=== PATIENT | female | born 2000 | race Caucasian/White ===

== ENCOUNTER 2018-02-10 21:30 | Emergency (ER) | payer OTHER, MEDICAID, SELFPAY ==
[2018-02-10 21:31] VITALS: BP 105/73; PULSE 94; RESP 14; TEMP 37; O2SAT 96; BMI 23.3
--- NOTE | 2018-02-10 22:57 | EKG12_ITS ---
Test Reason : CP Blood Pressure : / mmHG Vent. Rate : 083 BPM Atrial Rate : 083 BPM P-R Int : 136 ms QRS Dur : 084 ms QT Int : 346 ms P-R-T Axes : 062 049 040 degrees QTc Int : 406 ms Normal sinus rhythm with sinus arrhythmia Normal ECG Confirmed by MATTY ROCA, SOHA ([id number]), associate entertainment editor SACHI HANDY ([id number]) on 02/13/2018 1:45:49 PM Referred By: ROSENDO Confirmed By:SOHA STARR MD
--- NOTE | 2018-02-10 23:02 | NURSING ---
NO OLD EKG'S IN MUSE
[2018-02-10 23:12] LABS: Absolute Lymphocyte Count 2.91 X10^3/ul (0.83-4.51); Absolute Neutrophil Count 10.2 X10^3/uL (2.0-7.7); Basophil# 0.03 X10^3/uL; Basophil% 0.2 % (0-1); Eosinophils% 2.7 % (0-5); Hematocrit 35.9 % (37-47); Hemoglobin 12.2 g/dl (12.0-15.0); Lymphocyte # 2.91 X10^3/ul (4.0); Lymphocyte % 19.7 % (19-41); Mean Corpuscular Hgb 31.4 pg (27.0-32.0); Mean Corpuscular Volume 92.5 fL (81-99); Mean Platelet Vol. 9.8 fl (6.2-12.0); Monocyte% 8.1 % (0-10); Neutrophil # 10.16 X10^3/uL (2.7-7.7); POSITIVE COUNT NO; POSITIVE DIFFERENTIAL NO; POSITIVE MORPHOLOGY NO; Platelet Count 285 K/mm3 (150-450); RBC Distribution Width CV 13.3 % (11.6-14.6); RBC Distribution Width SD 44.8 fl (35.1-43.9); Red Blood Count 3.88 M/mm3 (4.2-5.4); White Blood Count 14.7 K/mm3 (4.4-11.0)
[2018-02-10 23:31] LABS: Anion Gap 8 (5-15); BUN 5 mg/dL (7-18); BUN/Creat Ratio 8.4 RATIO (10-20); Calcium,Total 8.6 mg/dL (8.5-10.1); Chloride 108 mmol/L (98-107); Creatinine, Serum 0.59 mg/dL (0.55-1.02); EST Glomerular Filtration Rate 137 mL/min (>60); Est Glom Filt Rate - Afr Amer 166 mL/min (>60); Estimated Creatinine Clearance 149.14 ml/min; Glucose 83 mg/dL (74-106); Potassium 3.9 mmol/L (3.5-5.1); Sodium Level 140 mmol/L (136-145); Thyroid Stim Hormone (TSH) 2.14 uIU/mL (0.358-3.74)
[2018-02-10 23:50] VITALS: BP 107/66; PULSE 78; RESP 12; O2SAT 99
[2018-02-11 00:42] LABS: Mucous, Urine 0 SEEN /hpf (<or=2+); Red Blood Cells-Urine 0 SEEN /hpf (0-5)
[2018-02-11 00:44] LABS: Color, Urine Yellow (Yellow); Glucose, Dipstick 100 mg/dl (Normal); Ketone-Dipstick Negative (Negative); Leukocyte Esterase-Dipstick 500 /ul (Negative); Nitrite-Dipstick Negative (Negative); Occult Blood-Urine Negative /ul (Negative); Protein-Dipstick Negative (Negative); Specific Gravity, Urine 1.015 (1.002-1.030); Urine Bilirubin Dipstick Negative (Negative); Urine Clarity Sl. Cloudy (Clear); Urine Urobilinogen Normal (Normal)
[2018-02-11 00:49] LABS: Bacteria RARE /hpf (None Seen); Squamous Epithelial Cells - UA 5-10 SEEN /hpf (5-10); White Blood Cells 0-5 SEEN /hpf (0-5)
--- NOTE | 2018-02-11 01:39 | ED.VISSUMM ---
- ER Visit Summary Date of Service: 02/11/18 Chief Complaint: [Chest pain] History of Present Illness: The patient is a 17 F [who presents the emergency department with chest pain and shortness of breath. She describes a pleuritic pain in the left chest associated with shortness of breath and mild dizziness that has been off and on all day today the longest it lasted was an hour and a half. She had a temp of 101 earlier tonight. No cough no sneezing no sore throat no ear pain no abdominal pain no vaginal bleeding no dysuria she has some mild urinary frequency. She is 19 weeks . This is her first .] Physical Examination: [] Afebrile vital signs within acceptable limits Female in no acute distress WN WD NAD PERRL EOMI MMM NECK supple and nontender, no masses RRR no murmur rub or gallop, no peripheral edema, symmetric radial pulses CTAB no respiratory distress ABDOMEN is soft and nontender, normal bowel sounds, gravid, no rebound or guarding SKIN is warm and dry no rashes Alert and Oriented x3, CN II-XII in tact, no motor or sensory deficits, gait normal No lymphadenopathy Test Results: [] Emergency Department Course and Treatment: [ heart tones 150. Screening blood work shows a leukocytosis of 14.4. Influenza squat swab is unremarkable. Patient is she has pleuritic pain with shortness of breath. She had fever. There is no other explanation for her symptoms. I spoke with her OB in the patient about CTA. CTA was of obtained for pulmonary embolism there was no evidence of pulmonary embolism or infection. Patient was given precautions for which to return. She will drink plenty of fluids eat healthy and follow-up with her CURING PICKLING PACKER.] Treatment Plan: [] Disposition: [Is charge] Impression: [chest pain] This note was generated with [employer] dictation software. It may contain incorrect words, spelling, and punctuation that were not noted in review of the chart prior to signing ED Disposition - Plan for ED Patient: Chief Complaint: Chest Pain Referrals: Pérez Mercedes [Primary Care Provider] -
--- NOTE | 2018-02-11 01:43 | ED.DCSUM_ITS ---
- ER Visit Summary Date of Service: 02/11/18 Chief Complaint: [Chest pain] History of Present Illness: The patient is a 17 F [who presents the emergency department with chest pain and shortness of breath. She describes a pleuritic pain in the left chest associated with shortness of breath and mild dizziness that has been off and on all day today the longest it lasted was an hour and a half. She had a temp of 101 earlier tonight. No cough no sneezing no sore throat no ear pain no abdominal pain no vaginal bleeding no dysuria she has some mild urinary frequency. She is 19 weeks . This is her first .] Physical Examination: [] Afebrile vital signs within acceptable limits Female in no acute distress WN WD NAD PERRL EOMI MMM NECK supple and nontender, no masses RRR no murmur rub or gallop, no peripheral edema, symmetric radial pulses CTAB no respiratory distress ABDOMEN is soft and nontender, normal bowel sounds, gravid, no rebound or guarding SKIN is warm and dry no rashes Alert and Oriented x3, CN II-XII in tact, no motor or sensory deficits, gait normal No lymphadenopathy Test Results: [] Emergency Department Course and Treatment: [ heart tones 150. Screening blood work shows a leukocytosis of 14.4. Influenza squat swab is unremarkable. Patient is she has pleuritic pain with shortness of breath. She had fever. There is no other explanation for her symptoms. I spoke with her OB in the patient about CTA. CTA was of obtained for pulmonary embolism there was no evidence of pulmonary embolism or infection. Patient was given precautions for which to return. She will drink plenty of fluids eat healthy and follow-up with her ELECTRICAL ENGINEERING DRAFTING OFFICER.] Treatment Plan: [] Disposition: [Is charge] Impression: [chest pain] This note was generated with [employer] dictation software. It may contain incorrect words, spelling, and punctuation that were not noted in review of the chart prior to signing ED Disposition - Plan for ED Patient: Chief Complaint: Chest Pain Referrals: Pérez Mercedes [Primary Care Provider] -
--- NOTE | 2018-02-11 01:43 | ED.DEP ---
ED Disposition - Plan for ED Patient: Chief Complaint: Chest Pain Instructions: ED Chest Pain Atypical Unkn Cause Referrals: Pérez Mercedes [Primary Care Provider] - 3-5 Days
--- NOTE | 2018-02-11 04:04 | ED.RN ---
REFER TO DOWNTIME CHARTING FOR DISPOSITION INFORMATION.
--- NOTE | 2018-02-11 23:29 | CT_ITS ---
STUDY: CTA CHEST REASON FOR EXAM: Female, 17 years old. SOB and chest pain, leukocytosis, 19 weeks RADIATION DOSAGE (If Supplied By Facility): CTDIvol = ( 4.67 ) mGy, DLP = ( 187.91 ) mGycm TECHNIQUE: The examination was performed with the intravenous administration of 75ML ml of Isovue 370 contrast material. Post-processing of the angiographic images was performed, with multiplanar reformation and 3D reconstruction. Individualized dose optimization techniques were used for this CT. COMPARISON: None. FINDINGS: Normal enhancement of the main pulmonary artery and right and left pulmonary arteries. Normal enhancement of the bilateral peripheral pulmonary arteries. There is no demonstrated pulmonary embolism. Normal thoracic aorta and visualized great vessels. There is no demonstrated aortic dissection. Normal heart and pericardium. Normal mediastinum. Normal hilar regions. Normal visualized trachea and bronchi. The lungs are well expanded. Normal pulmonary parenchyma. Normal pleura. Normal chest wall structures. Normal osseous structures. Normal visualized upper abdomen. CT/CTA Chest W/WO Contrast IMPRESSION: Normal CTA chest examination, without a demonstrated pulmonary embolism or arterial dissection. Electronically Signed: Devang Thornton MD at 1:11 EDT Tel , Service support ,
== END 2018-02-11 02:00 | disposition home or self-care (01) ==
LOC: ED 22:49 → MS3 23:03 → ED 23:03
PROVIDERS: Emergency Provider Emergency Medicine; Family Provider Family Medicine; PCP Family Medicine
DX: O99.89 Other specified diseases and conditions complicating pregnancy, childbirth and the puerperium (principal); R07.89 Other chest pain; Z3A.19 19 weeks gestation of pregnancy
CPT/HCPCS: 71275; 80048; 81001; 84443; 84484; 85025; 87086; 87088; 87804; 93005; 99283; Q9967; A4216

== ENCOUNTER 2018-12-07 18:51 | Emergency (ER) | payer OTHER, MEDICAID, SELFPAY ==
[2018-12-07 18:52] VITALS: BP 118/70; PULSE 114; RESP 17; TEMP 36.8; O2SAT 95; BMI 26.4
[2018-12-07 19:17] VITALS: TEMP 36.8
--- NOTE | 2018-12-07 19:43 | EKG12_ITS ---
Test Reason : Blood Pressure : / mmHG Vent. Rate : 086 BPM Atrial Rate : 086 BPM P-R Int : 154 ms QRS Dur : 090 ms QT Int : 364 ms P-R-T Axes : 052 041 025 degrees QTc Int : 435 ms Normal sinus rhythm Possible Left atrial enlargement RSR' or QR pattern in V1 suggests right ventricular conduction delay Septal infarct , age undetermined Abnormal ECG Confirmed by MATTY ROCA, SOHA ([id number]), editor house organ SACHI HANDY ([id number]) on 12/08/2018 5:18:15 PM Referred By: SUSAN Confirmed By:SOHA STARR MD
--- NOTE | 2018-12-07 19:44 | ED.VISSUMM ---
- ER Visit Summary Date of Service: 12/07/18 Chief Complaint: Vomiting, dizziness History of Present Illness: The patient is a 18 F presenting with intermittent nausea and vomiting. This has been ongoing for the past 2 weeks. She had no vomiting today but has felt nauseated. Her last episode of vomiting was yesterday. Denies blood in her emesis. She denies diarrhea or constipation. Denies abdominal pain. Denies fever or chills. Denies urinary complaints. Denies chest pain or shortness of breath. She states she feels lightheaded when she stands. This is intermittent as well. She has no headache, weakness, numbness. She took a home test which was negative. Denies other complaints. Physical Examination: Vitals are stable. Patient is afebrile. Alert no acute distress. HEENT exam is unremarkable. Neck is supple. Lungs are clear and equal bilaterally. Heart is regular rate and rhythm. Abdomen is soft nontender nondistended. Extremities are unremarkable. Skin is warm and dry. No focal neurologic deficit. Remainder of exam is unremarkable. Emergency Department Course and Treatment: Patient given IV fluids, Zofran. EKG is sinus rate of 86, unchanged from previous. Chemistries are unremarkable. HCG negative. Orthostatic negative. Patient is feeling improved. She is able to tolerate p.o. in the emergency department. She is given a prescription for Zofran. Advised to follow-up with her primary care physician. Advised return to ED if worsening complaints. Disposition: Discharge home Impression: Vomiting, lightheadedness This note was generated with [employer] dictation software. It may contain incorrect words, spelling, and punctuation that were not noted in review of the chart prior to signing ED Disposition - Plan for ED Patient: Chief Complaint: Dizziness Instructions: ED Dizziness [facility] Prescriptions: Ondansetron [Zofran Odt] 4 mg PO Q8H PRN PRN #10 tablet PRN Reason: Nausea Referrals: Pérez Mercedes [Primary Care Provider] -
[2018-12-07] MEDS: 0.9% Normal Saline 1,000 ML 1000 ML IV (20:03)
[2018-12-07] MEDS: Ondansetron 4 MG/2 ML Vial IV (20:03)
[2018-12-07 20:10] VITALS: BP 112/67; BP 117/83; BP 127/75; PULSE 104; PULSE 110; PULSE 81; TEMP 37.1
[2018-12-07 20:33] LABS: Anion Gap 7 (5-15); BUN 9 mg/dL (7-18); BUN/Creat Ratio 10.8 RATIO (10-20); Calcium,Total 8.8 mg/dL (8.5-10.1); Chloride 107 mmol/L (98-107); Creatinine, Serum 0.84 mg/dL (0.55-1.02); EST Glomerular Filtration Rate 92 mL/min (>60); Est Glom Filt Rate - Afr Amer 111 mL/min (>60); Estimated Creatinine Clearance 103.89 ml/min; Glucose 96 mg/dL (74-106); Potassium 3.5 mmol/L (3.5-5.1); Sodium Level 140 mmol/L (136-145)
[2018-12-07 20:41] LABS: Pregnancy, Serum, hCG Quali. NEGATIVE Negative (0-9 Nonpreg)
[2018-12-07 21:20] VITALS: RESP 18
--- NOTE | 2018-12-07 21:30 | ED.DEP ---
ED Disposition - Plan for ED Patient: Chief Complaint: Dizziness Instructions: ED Dizziness [facility] Prescriptions: Ondansetron [Zofran Odt] 4 mg PO Q8H PRN PRN #10 tablet PRN Reason: Nausea Referrals: Pérez Mercedes [Primary Care Provider] -
[2018-12-07 21:39] VITALS: PULSE 78; RESP 18; O2SAT 98
== END 2018-12-07 21:42 | disposition home or self-care (01) ==
LOC: ED 20:00
PROVIDERS: Emergency Provider Emergency Medicine; Family Provider Family Medicine; PCP Family Medicine
DX: R11.2 Nausea with vomiting, unspecified (principal); R42 Dizziness and giddiness; F32.9 Major depressive disorder, single episode, unspecified
CPT/HCPCS: 80048; 84703; 93005; 96361; 96374; 99284; J7030; J2405

== ENCOUNTER 2019-01-09 19:35 | Emergency (ER) | payer MEDICAID, SELFPAY ==
[2019-01-09 19:36] VITALS: BP 121/81; PULSE 71; RESP 15; TEMP 36.6; O2SAT 98; BMI 27.2
--- NOTE | 2019-01-09 20:00 | RAD_ITS ---
STUDY: X-RAY - ABDOMEN/PELVIS REASON FOR EXAM: Female, 18 years old. Lower abdominal pain TECHNIQUE: Single AP view of the abdomen / pelvis. COMPARISON: None. FINDINGS: Normal visualized lung bases. There is an unremarkable bowel gas pattern. There is no demonstrated free abdominal air. The visualized liver, spleen and kidneys are grossly normal in size and morphology. Normal soft tissue structures. Normal visualized osseous structures. RAD/Abdomen Single View IMPRESSION: Normal x-ray examination of the abdomen and pelvis. Electronically Signed: Ventura New MD at 20:17 EST , Service support ,
--- NOTE | 2019-01-09 20:04 | ED.DCSUM_ITS ---
- ER Visit Summary Date of Service: 01/09/19 Chief Complaint: Abdominal pain, left flank pain History of Present Illness: The patient is a 18 F with generalized abdominal pain for the past 3 days. She states she has diffuse crampy abdominal pain. She denies nausea, vomiting, or diarrhea. Pain is unchanged with food. She denies urinary symptoms. She denies vaginal discharge. Last mental cycle was earlier this month. She does report a history of constipation. She states she has been having regular bowel movements, but sometimes this still is not enough to clean her out. She is wondering if this may be the cause of her pain. Physical Examination: Vital signs unremarkable. Patient sitting upright in bed no acute distress. Heart is regular rate and rhythm. Lungs sounds are clear. Abdomen is soft with no focal tenderness. Active bowel sounds are noted. Back examination reveals no focal CVA tenderness. Test Results: Abdominal x-ray is obtained and read by radiology as normal. On my review there does appear to be stool low in the pelvis. Urinalysis is unremarkable. Urine test is negative. Emergency Department Course and Treatment: Test results discussed with patient and at bedside. She will be given mag citrate. They also raise concern about some recent anxiety. Patient took herself off of her antidepressant approximately a month ago. She did taper it off. Patient states she has difficulty sleeping at night secondary to anxiety. She denies suicidal or homicidal thoughts. She will be given a short course of Ativan if needed to help her sleep. She will contact her primary care physician about getting back on her antidepressant medication. Treatment Plan: [] Disposition: Discharge Impression: 1. Constipation 2. Anxiety This note was generated with [employer] software. It may contain incorrect words, spelling, and punctuation that were not noted in review of the chart prior to signing ED Disposition - Plan for ED Patient: Disposition: Home or Assisted Living Instructions: ED Constipation, ED Stress React Prescriptions: Magnesium Citrate [Citrate Of Magnesia] 150 ml PO Q6H PRN PRN #1 bottle PRN Reason: Constipation Lorazepam [Ativan] 0.5 mg PO TID PRN #10 tablet PRN Reason: Anxiety Referrals: Pérez Mercedes [Primary Care Provider] - As soon as possible
[2019-01-09 20:44] LABS: Bacteria 0 SEEN /hpf (None Seen); Mucous, Urine 0 SEEN /hpf (<or=2+); Red Blood Cells-Urine 0 SEEN /hpf (0-5)
[2019-01-09 20:55] LABS: Color, Urine Straw (Yellow); Glucose, Dipstick Normal (Normal); Ketone-Dipstick Negative (Negative); Leukocyte Esterase-Dipstick Negative /ul (Negative); Nitrite-Dipstick Negative (Negative); Occult Blood-Urine Negative /ul (Negative); Protein-Dipstick Negative (Negative); Urine Bilirubin Dipstick Negative (Negative); Urine Clarity Clear (Clear); Urine Urobilinogen Normal (Normal); Urine pH 6.5 (5.0 - 8.0)
[2019-01-09 20:58] LABS: Internal QC Validated? YES +Cl - CLEAR BKGD; Pregnancy, Urine Negative Negative
[2019-01-09 21:19] LABS: Squamous Epithelial Cells - UA 0-5 SEEN /hpf (5-10)
[2019-01-09 21:20] LABS: White Blood Cells 0-5 SEEN /hpf (0-5)
[2019-01-09 21:35] VITALS: BP 118/80; PULSE 70; PULSE 71; RESP 16; O2SAT 98
== END 2019-01-09 21:37 | disposition home or self-care (01) ==
PROVIDERS: Emergency Provider Emergency Medicine; Family Provider Family Medicine; PCP Family Medicine
DX: K59.00 Constipation, unspecified (principal); F41.9 Anxiety disorder, unspecified
CPT/HCPCS: 74018; 81001; 81025; 99282

== ENCOUNTER 2019-01-19 18:19 | Emergency (ER) | payer MEDICAID, SELFPAY ==
[2019-01-19 18:20] VITALS: BP 138/71; PULSE 98; RESP 16; TEMP 36.6; O2SAT 98; BMI 27.6
[2019-01-19 18:43] LABS: Absolute Lymphocyte Count 3.09 X10^3/ul (0.83-4.51); Absolute Neutrophil Count 6.3 X10^3/uL (2.0-7.7); Basophil# 0.04 X10^3/uL; Basophil% 0.4 % (0-1); Eosinophil# 0.43 X10^3/uL; Hematocrit 42.2 % (37-47); Hemoglobin 14.2 g/dl (12.0-15.0); Lymphocyte # 3.09 X10^3/ul (4.0); Lymphocyte % 28.9 % (19-41); Mean Corp Hgb Conc 33.6 g/gl (32-36); Mean Corpuscular Hgb 30.5 pg (27.0-32.0); Mean Corpuscular Volume 90.8 fL (81-99); Mean Platelet Vol. 9.5 fl (6.2-12.0); Monocyte# 0.79 X10^3/uL; Monocyte% 7.4 % (0-10); Neutrophil # 6.34 X10^3/uL (2.7-7.7); Neutrophil % 59.2 % (47-70); Platelet Count 331 K/mm3 (150-450); RBC Distribution Width CV 12.5 % (11.6-14.6); RBC Distribution Width SD 40.9 fl (35.1-43.9); Red Blood Count 4.65 M/mm3 (4.2-5.4); White Blood Count 10.7 K/mm3 (4.4-11.0)
[2019-01-19 18:46] LABS: POSITIVE COUNT NO; POSITIVE DIFFERENTIAL NO; POSITIVE MORPHOLOGY NO
[2019-01-19 18:57] LABS: Anion Gap 8 (5-15); BUN 10 mg/dL (7-18); BUN/Creat Ratio 13.3 RATIO (10-20); Calcium,Total 8.4 mg/dL (8.5-10.1); Chloride 106 mmol/L (98-107); Creatinine, Serum 0.75 mg/dL (0.55-1.02); EST Glomerular Filtration Rate 104 mL/min (>60); Est Glom Filt Rate - Afr Amer 125 mL/min (>60); Estimated Creatinine Clearance 116.36 ml/min; Glucose 100 mg/dL (74-106); Potassium 3.8 mmol/L (3.5-5.1); Sodium Level 138 mmol/L (136-145)
--- NOTE | 2019-01-19 18:57 | RAD_ITS ---
STUDY: X-RAY - ACUTE ABDOMINAL SERIES REASON FOR EXAM: Female, 18 years old. Pain. TECHNIQUE: Single view of the chest. Supine, and erect view(s) of the abdomen were obtained. COMPARISON: None. FINDINGS: The lungs are clear and expanded. Normal size heart. Normal mediastinum and kwadwo. Normal visualized pulmonary arteries. Normal visualized aortic arch and descending thoracic aorta. There is a non-specific bowel gas pattern. The soft tissue structures of the abdomen and pelvis are unremarkable. Normal visualized osseous structures. RAD/Acute Abdomen Inc Chest IMPRESSION: Normal x-ray examination of the chest, abdomen, and pelvis. Electronically Signed: Jose Shipman MD at 19:29 EST , Service support ,
[2019-01-19] MEDS: Dicyclomine 10 MG Capsule 20 MG PO (19:18)
[2019-01-19 19:30] LABS: Bacteria 0 SEEN /hpf (None Seen); Mucous, Urine 0 SEEN /hpf (<or=2+); Red Blood Cells-Urine 0 SEEN /hpf (0-5); White Blood Cells 0 SEEN /hpf (0-5)
[2019-01-19 19:51] LABS: Color, Urine Yellow (Yellow); Glucose, Dipstick 50 mg/dl (Normal); Ketone-Dipstick Negative (Negative); Leukocyte Esterase-Dipstick Negative /ul (Negative); Nitrite-Dipstick Negative (Negative); Occult Blood-Urine Negative /ul (Negative); Protein-Dipstick Negative (Negative); Urine Bilirubin Dipstick Negative (Negative); Urine Clarity Clear (Clear); Urine Urobilinogen Normal (Normal)
[2019-01-19 20:00] LABS: Squamous Epithelial Cells - UA 0-5 SEEN /hpf (5-10)
[2019-01-19 20:10] LABS: Pregnancy, Serum, hCG Quali. NEGATIVE Negative (0-9 Nonpreg)
[2019-01-19 21:45] VITALS: BP 107/63; PULSE 76; RESP 16; O2SAT 100
--- NOTE | 2019-01-19 22:03 | ED.DCSUM_ITS ---
- ER Visit Summary Date of Service: 01/19/19 Chief Complaint: Central abdominal pain History of Present Illness: The patient is a 18 F who was seen approximately 2 weeks ago and told she had constipation. She presents because of increasing frequency and duration of central abdominal pain. Initially it was seconds. Now it is 5-10 minutes. There is associated nausea without vomiting diarrhea. She denies dysuria, frequency, urgency or hematuria. She denies fever, chills or night sweats. She denies anorexia. She denies cardiac respiratory symptoms. She denies any URI symptoms. She denies skin lesion or rash. No ill contacts. She has not noted a hernia. Physical Examination: Vital signs noted. She appears no distress. Head is atraumatic normocephalic. Pupils are equal round reactive. Extraocular muscles are intact. TMs are pearly white with landmarks noted. Nares patent with no drainage. Posterior pharynx without erythema or exudate. Uvula is midline. There is no dysphonia or dysphasia. Trachea is midline. There is no stridor with auscultation of the neck. Heart is regular without murmur, gallop or rub. S1 and S2 are normal. Lungs are clear to auscultation with good movement of air bilaterally. Abdomen is remarkable for central pain without guarding or rebound tenderness. Bowel sounds are slightly diminished. There is no evidence of umbilical or inguinal hernia. There is no inguinal lymphadenopathy. There is no CVA tenderness noted. There are no skin lesions or evidence of trauma. Neuro exam is nonfocal. Test Results: CBC, basic metabolic panel are unremarkable. Urine was positive for ketones. Abdominal series was obtained and reveals increased bowel gas pattern. 90s are nonspecific. Emergency Department Course and Treatment: This blood work was obtained and to compared to 2 weeks ago as well as abdominal series. Her abdominal film from 2 weeks ago was reviewed and revealed no significant abnormality. Treatment Plan: Symptomatic Disposition: Discharge to home with spouse Impression: Central abdominal pain of unknown etiology This note was generated with [employer] dictation software. It may contain incorrect words, spelling, and punctuation that were not noted in review of the chart prior to signing ED Disposition - Plan for ED Patient: Disposition: Home or Assisted Living Instructions: ED Abdominal Pain Unkn Cause Referrals: Pérez Mercedes [Primary Care Provider] - As Needed
== END 2019-01-19 22:30 | disposition home or self-care (01) ==
PROVIDERS: Emergency Provider Emergency Medicine; Family Provider Family Medicine; PCP Family Medicine
DX: R10.9 Unspecified abdominal pain (principal)
CPT/HCPCS: 74022; 80048; 81001; 84703; 85025; 99284; A4216

== ENCOUNTER 2019-02-18 20:37 | Emergency (ER) | payer MEDICAID, SELFPAY ==
[2019-02-18 20:38] VITALS: BP 128/73; PULSE 85; RESP 17; TEMP 36.8; O2SAT 99; BMI 28.1
--- NOTE | 2019-02-18 20:50 | ED.VISSUMM ---
- ER Visit Summary Date of Service: 02/18/19 Chief Complaint: Pelvic pain History of Present Illness: The patient is a 18 F reportedly Ab1 with having a miscarriage. Currently she believes she is 6 weeks . States her last menstrual period was 01/01/2019. She states for 3 days she has had crampy suprapubic abdominal and pelvic discomfort. She denies any dysuria hematuria. Denies any vaginal bleeding or discharge. She states she is had 3+ tests at home. Recently at the end of December she had a negative serum test here and also in November negative test. States she is having normal bowel movements. Last bowel movement was several hours ago. She denies any fever or chills. Physical Examination: Well-appearing 18-year-old. Vital signs are stable afebrile. No acute distress. H EENT exam neck nontender no lymphadenopathy. Lungs clear to auscultation bilaterally. Heart regular rhythm no murmur. Abdomen is soft. Nondistended. Normal bowel sounds. No peritoneal signs. Both the right upper and right lower quadrants are unremarkable and nontender. She complains of pain suprapubically low but there is really no reproducible tenderness. No obvious hernias or masses. No peritoneal signs. Extremities moves all 4. Calves nontender no edema. Neurologically she is awake and alert with no focal motor deficits. Back is nontender. Test Results: Urinalysis shows no acute abnormality. No signs of infection or blood. Serum test was positive. A quantitative hCG was obtained was 21,304. Transvaginal pelvic ultrasound shows single live IUP at 6 weeks and 6 days with estimated due delivery of 10/08/2019. Awaiting formal radiologist interpretation. Emergency Department Course and Treatment: Patient doing well multiple repeat exams. Defers pelvic exam at this time. Treatment Plan: At all for pain. Follow-up with her HIDE M[employer] MAN Dr. Tobar Disposition: Discharge Impression: Acute pelvic pain of uncertain cause First trimester at about 6 weeks This note was generated with [employer] dictation software. It may contain incorrect words, spelling, and punctuation that were not noted in review of the chart prior to signing ED Disposition - Plan for ED Patient: Referrals: Pérez Mercedes [NON-STAFF] -
[2019-02-18 21:03] LABS: Bacteria 0 SEEN /hpf (None Seen); Color, Urine Yellow (Yellow); Glucose, Dipstick Normal (Normal); Ketone-Dipstick Negative (Negative); Leukocyte Esterase-Dipstick Negative /ul (Negative); Mucous, Urine 0 SEEN /hpf (<or=2+); Nitrite-Dipstick Negative (Negative); Occult Blood-Urine Negative /ul (Negative); Protein-Dipstick Negative (Negative); Red Blood Cells-Urine 0 SEEN /hpf (0-5); Specific Gravity, Urine 1.005 (1.002-1.030); Urine Bilirubin Dipstick Negative (Negative); Urine Clarity Clear (Clear); Urine Urobilinogen Normal (Normal); White Blood Cells 0 SEEN /hpf (0-5)
[2019-02-18 21:09] LABS: Squamous Epithelial Cells - UA 0-5 SEEN /hpf (5-10)
[2019-02-18 21:34] LABS: Pregnancy, Serum, hCG Quali. POSITIVE Negative (0-9 Nonpreg)
--- NOTE | 2019-02-18 21:38 | US_ITS ---
STUDY: FIRST TRIMESTER OBSTETRICAL ULTRASOUND REASON FOR EXAM: Female, 18 years old. Pelvic pain LMP: 01/01/2019 TECHNIQUE: Transvaginal probe was utilized TECHNICAL QUALITY: Adequate. PRIOR ULTRASOUND: None. FINDINGS: The study shows a gravid uterus measuring 6.7 x 6.3 x 4.5 cm. A gestational sac is identified within the endometrial canal. Within the sac is seen a yolk sac of normal size and an embryonic pole with a heart rate of 11 5 bpm and a crown-rump length of 4.1 mm compatible with 6 weeks 1 day +/- 5 days gestational age, and an expected date of delivery of 10/12/2019. Using the LMP the expected date would be 10/08/2019. Both ovaries are visualized and both demonstrate normal Doppler flow. The right measures 2.9 x 2.5 x 1.9 cm and the left 3.2 x 2.5 x 2.1 cm. A small amount of free fluid is in the cul-de-sac. US/Transvaginal w/Preg US IMPRESSION: An early intrauterine at 6 weeks 1 day +/- 5 days with an expected date of delivery of 10/12/2019. Using the LMP the expected dates would be 10/08/2019. Electronically Signed: Cj Flaherty MD at 0:18 EDT Tel , Service support ,
--- NOTE | 2019-02-18 21:39 | ED.RN ---
DR. YA AWARE OF POSITIVE SERUM
[2019-02-18 21:47] LABS: hCG Titer Quant., Serum 21304 mIU/mL (<9 non-preg)
--- NOTE | 2019-02-18 23:21 | DCINST.ED_ITS ---
ED Disposition - Plan for ED Patient: Disposition: Home or Assisted Living Instructions: ED Pelvic Pain [facility] Referrals: Rosalba Matta MD [STAFF PHYSICIAN] - As soon as possible Additional Instructions: Tylenol for pain. Your ultrasound showed that you are about 6 weeks and 6 days. We do not have a specific cause for your pelvic pain. The urine showed no signs of infection and the ultrasound otherwise did not show any abnormalities. Follow-up with your QUALITY AND RELIABILITY ENGINEER.
[2019-02-19 00:30] VITALS: RESP 18; O2SAT 99
== END 2019-02-19 00:31 | disposition home or self-care (01) ==
PROVIDERS: Emergency Provider Emergency Medicine; Family Provider Family Medicine; PCP Family Medicine
DX: O26.891 Other specified pregnancy related conditions, first trimester (principal); R10.2 Pelvic and perineal pain; Z3A.01 Less than 8 weeks gestation of pregnancy
CPT/HCPCS: 76817; 81001; 84702; 84703; 99284; A4216

== ENCOUNTER → 2019-02-22 12:06 | Outpatient (CLI) | payer MEDICAID, SELFPAY ==
[2019-02-22 11:23] VITALS: BMI 28.1
[2019-02-22 13:54] LABS: Absolute Lymphocyte Count 3.02 X10^3/ul (0.83-4.51); Absolute Neutrophil Count 8.5 X10^3/uL (2.0-7.7); Basophil# 0.03 X10^3/uL; Basophil% 0.2 % (0-1); Eosinophil# 0.19 X10^3/uL; Eosinophils% 1.5 % (0-5); Hematocrit 41.6 % (37-47); Hemoglobin 14.3 g/dl (12.0-15.0); Lymphocyte # 3.02 X10^3/ul (4.0); Lymphocyte % 23.6 % (19-41); Mean Corp Hgb Conc 34.4 g/gl (32-36); Mean Corpuscular Hgb 30.8 pg (27.0-32.0); Mean Corpuscular Volume 89.5 fL (81-99); Mean Platelet Vol. 9.8 fl (6.2-12.0); Monocyte# 0.98 X10^3/uL; Monocyte% 7.7 % (0-10); Neutrophil # 8.53 X10^3/uL (2.7-7.7); Neutrophil % 66.7 % (47-70); Platelet Count 309 K/mm3 (150-450); RBC Distribution Width CV 12.6 % (11.6-14.6); Red Blood Count 4.65 M/mm3 (4.2-5.4); White Blood Count 12.8 K/mm3 (4.4-11.0)
[2019-02-22 14:13] LABS: POSITIVE COUNT NO; POSITIVE DIFFERENTIAL NO; POSITIVE MORPHOLOGY NO
[2019-02-22 15:17] LABS: HIV - WCH Non-Reactive (Nonreactive); Rubella IgG 60.1 IU/mL
[2019-02-22 20:29] LABS: Chlamydia Trachomatis by PCR Negative (Negative); Neisserai gonorrhoeae by PCR Negative (Negative); Probe Check PASS; Sample Adequacy Control PASS; Specimen Processing Control PASS
[2019-02-23 12:26] LABS: HEPATITIS B SURFACE AG Negative (Negative)
[2019-02-25 14:24] LABS: HPV Reflexed? NOT INDICATED
[2019-02-26 03:37] LABS: Rapid Plasmin Reagin (RPR) NONREACTIVE (NONREACTIVE)
== END ==
PROVIDERS: Nurse Practitioner Women's Health; Family Provider Family Medicine; PCP Family Medicine; Referring Provider Obstetrics & Gynecology; Visit Provider Obstetrics & Gynecology
DX: O09.91 Supervision of high risk pregnancy, unspecified, first trimester (principal); Z3A.00 Weeks of gestation of pregnancy not specified; Z12.4 Encounter for screening for malignant neoplasm of cervix
CPT/HCPCS: 36415; 85025; 86592; 86703; 86762; 86850; 86900; 87340; 87491; 87591; 87624; 88175; G0145

== ENCOUNTER 2019-03-11 11:27 | Emergency (ER) | payer MEDICAID, SELFPAY ==
[2019-02-22 11:23] VITALS: BMI 28.1
[2019-03-11 11:28] VITALS: BP 132/74; PULSE 107; RESP 17; TEMP 36.5; O2SAT 98; BMI 28.1
--- NOTE | 2019-03-11 11:42 | ED.VISSUMM ---
- ER Visit Summary Date of Service: 03/11/19 Chief Complaint: Constipation History of Present Illness: The patient is a 18 F who is approximately 9 weeks presenting with constipation for the past 3 weeks. Patient states she has been taking MiraLAX and Colace at home with no relief. Patient complains of intermittent sharp upper abdominal pain. Patient denies any nausea or vomiting. Patient denies any urinary complaints. Patient denies any abnormal vaginal bleeding or discharge. Physical Examination: Vital signs are stable. Patient is afebrile. Patient is in no acute distress. Oral mucosa is pink and moist. Neck is supple. Trachea is midline. Heart was regular rate and rhythm. Lungs are clear and equal bilateral. Abdomen is soft. There is some lower abdominal tenderness. There is no rebound or guarding noted. Cranial nerves II through XII are intact. There are no focal motor or sensory deficits noted. Emergency Department Course and Treatment: Patient was given a soapsuds enema here in the emergency department. Patient had moderate results with this. Patient was instructed to continue her Colace and MiraLAX as previously prescribed. Patient was instructed to follow-up with her PUBLIC UTILITIES SALES REPRESENTATIVE in 5-7 days. Patient understood and was agreeable with the plan. All questions were answered. Disposition: Discharge home Impression: 1. Constipation 2. This note was generated with [employer] dictation software. It may contain incorrect words, spelling, and punctuation that were not noted in review of the chart prior to signing ED Disposition - Plan for ED Patient: Disposition: Home or Assisted Living Diagnosis: Constipation Instructions: ED Constipation Referrals: Yovanny Navarro MD [Primary Care Provider] - 5-7 Days Additional Instructions: Eat a high-fiber diet. Continue your Colace and MiraLAX as previously prescribed by your PUBLIC UTILITIES SALES REPRESENTATIVE.
--- NOTE | 2019-03-11 11:45 | ED.DCSUM_ITS ---
- ER Visit Summary Date of Service: 03/11/19 Chief Complaint: Constipation History of Present Illness: The patient is a 18 F who is approximately 9 weeks presenting with constipation for the past 3 weeks. Patient states she has been taking MiraLAX and Colace at home with no relief. Patient complains of intermittent sharp upper abdominal pain. Patient denies any nausea or vomiting. Patient denies any urinary complaints. Patient denies any abnormal vaginal bleeding or discharge. Physical Examination: Vital signs are stable. Patient is afebrile. Patient is in no acute distress. Oral mucosa is pink and moist. Neck is supple. Trachea is midline. Heart was regular rate and rhythm. Lungs are clear and equal bilateral. Abdomen is soft. There is some lower abdominal tenderness. There is no rebound or guarding noted. Cranial nerves II through XII are intact. There are no focal motor or sensory deficits noted. Emergency Department Course and Treatment: Patient was given a soapsuds enema here in the emergency department. Patient had moderate results with this. Patient was instructed to continue her Colace and MiraLAX as previously prescribed. Patient was instructed to follow-up with her CASTING PLUG ASSEMBLER in 5-7 days. Patient understood and was agreeable with the plan. All questions were answered. Disposition: Discharge home Impression: 1. Constipation 2. This note was generated with [employer] dictation software. It may contain incorrect words, spelling, and punctuation that were not noted in review of the chart prior to signing ED Disposition - Plan for ED Patient: Disposition: Home or Assisted Living Diagnosis: Constipation Instructions: ED Constipation Referrals: Yovanny Navarro MD [Primary Care Provider] - 5-7 Days Additional Instructions: Eat a high-fiber diet. Continue your Colace and MiraLAX as previously prescribed by your CASTING PLUG ASSEMBLER.
== END 2019-03-11 14:32 | disposition home or self-care (01) ==
PROVIDERS: Emergency Provider Emergency Medicine; Family Provider Family Medicine; PCP Family Medicine
DX: O99.89 Other specified diseases and conditions complicating pregnancy, childbirth and the puerperium (principal); K59.00 Constipation, unspecified; Z3A.09 9 weeks gestation of pregnancy
CPT/HCPCS: 99284

== ENCOUNTER 2019-03-12 17:53 | Emergency (ER) | payer MEDICAID, SELFPAY ==
[2019-03-11 11:28] VITALS: BMI 28.1
[2019-03-12 17:54] VITALS: BP 138/66; PULSE 101; RESP 16; TEMP 36.9; O2SAT 99; BMI 27.9
[2019-03-12 18:31] LABS: Mucous, Urine 0 SEEN /hpf (<or=2+); Red Blood Cells-Urine 0 SEEN /hpf (0-5)
--- NOTE | 2019-03-12 18:35 | RAD_ITS ---
STUDY: X-RAY - ABDOMEN/PELVIS REASON FOR EXAM: Female, 18 years old. 9 weeks with abdominal pain and vomiting. Patient taking Zofran for her morning sickness. TECHNIQUE: Two AP supine views of the abdomen and pelvis. COMPARISON: January 09, 2019. FINDINGS: The lung bases are not included. Large amount of feces throughout nondistended colon. There is no small bowel dilatation or air-fluid levels. There is no demonstrated free abdominal air. The visualized liver, spleen and kidneys are grossly normal in size and morphology. There are no suspicious calcifications. Normal soft tissue structures. Normal visualized osseous structures. RAD/Abdomen Single View IMPRESSION: Increased colonic feces suggesting constipation. Electronically Signed: Chase Quach DO at 18:56 EDT Tel [phone], Service support ,
[2019-03-12 18:52] LABS: Color, Urine Yellow (Yellow); Glucose, Dipstick 1000 mg/dl (Normal); Ketone-Dipstick 5 mg/dl (Negative); Leukocyte Esterase-Dipstick 500 /ul (Negative); Nitrite-Dipstick Negative (Negative); Occult Blood-Urine Negative /ul (Negative); Protein-Dipstick 15 mg/dl (Negative); Urine Bilirubin Dipstick Negative (Negative); Urine Clarity Clear (Clear); Urine Urobilinogen Normal (Normal)
[2019-03-12 18:54] LABS: ALB/GLOB Ratio 0.9 RATIO (0.9-2.4); AST(SGOT) 15 U/L (15-37); Alanine Aminotransfer ALT/SGPT 18 U/L (13-56); Albumin, Serum 3.6 g/dL (3.2-5.0); Alkaline Phosphatase 50 U/L (45-117); Anion Gap 6 (5-15); BUN 5 mg/dL (7-18); BUN/Creat Ratio 7.4 RATIO (10-20); Calcium,Total 8.9 mg/dL (8.5-10.1); Chloride 107 mmol/L (98-107); Creatinine, Serum 0.67 mg/dL (0.55-1.02); EST Glomerular Filtration Rate 117 mL/min (>60); Est Glom Filt Rate - Afr Amer 142 mL/min (>60); Estimated Creatinine Clearance 130.25 ml/min; Globulin 3.9 g/dL (2.2-4.2); Glucose 80 mg/dL (74-106); Potassium 3.2 mmol/L (3.5-5.1); Protein, Total 7.5 g/dL (6.4-8.2); Sodium Level 138 mmol/L (136-145)
[2019-03-12 18:55] LABS: Bacteria 1+ /hpf (None Seen); Squamous Epithelial Cells - UA 0-5 SEEN /hpf (5-10); White Blood Cells 0-5 SEEN /hpf (0-5)
[2019-03-12 18:56] LABS: Absolute Lymphocyte Count 2.73 X10^3/ul (0.83-4.51); Absolute Neutrophil Count 7.2 X10^3/uL (2.0-7.7); Basophil# 0.02 X10^3/uL; Basophil% 0.2 % (0-1); Eosinophil# 0.21 X10^3/uL; Eosinophils% 1.9 % (0-5); Hematocrit 41.8 % (37-47); Hemoglobin 14.5 g/dl (12.0-15.0); Lymphocyte # 2.73 X10^3/ul (4.0); Lymphocyte % 24.3 % (19-41); Mean Corp Hgb Conc 34.7 g/gl (32-36); Mean Corpuscular Hgb 30.9 pg (27.0-32.0); Mean Corpuscular Volume 89.1 fL (81-99); Mean Platelet Vol. 9.9 fl (6.2-12.0); Monocyte# 1.08 X10^3/uL; Monocyte% 9.6 % (0-10); Neutrophil # 7.15 X10^3/uL (2.7-7.7); Neutrophil % 63.7 % (47-70); POSITIVE COUNT NO; POSITIVE DIFFERENTIAL NO; POSITIVE MORPHOLOGY NO; Platelet Count 300 K/mm3 (150-450); RBC Distribution Width CV 12.5 % (11.6-14.6); RBC Distribution Width SD 39.7 fl (35.1-43.9); Red Blood Count 4.69 M/mm3 (4.2-5.4); White Blood Count 11.2 K/mm3 (4.4-11.0)
--- NOTE | 2019-03-12 20:08 | ED.VISSUMM ---
- ER Visit Summary Date of Service: 03/12/19 Chief Complaint: Abdominal pain History of Present Illness: The patient is a 18 F is 9 weeks presents with abdominal pain for 5 hours, she was seen recently for constipation and had an enema but only mild results. She has no back pain she has no frequency or urgency. Her pain is throughout her abdomen but she does say most of it is in the right lower quadrant. She has no anorexia or nausea or vomiting. Physical Examination: Not appear in acute distress. Moist mucous membranes, no obvious facial deformity No C-spine tenderness supple neck. Regular rate and rhythm without any obvious murmurs Clear lungs bilaterally speaking in full sentences without any obvious respiratory distress Abdomen soft quite benign without any guarding or rebound, there is tenderness throughout the abdomen, including the right lower quadrant, however very soft and benign. No CVA tenderness exam was deferred. Skin does not show any obvious rashes or lesions, no trauma. Alert oriented ?3 with no gross focal deficit Emergency Department Course and Treatment: X-ray is indicative of constipation, she does have some glucosuria and a urinary tract infection and told to follow-up with PCP for the glucosuria, the glucose on the basic metabolic panel was normal and at 80. She has a white count of 11, x-ray certainly shows quite a bit of constipation I believe this is the cause of her symptoms today, certainly I have to worry about appendicitis however her pain has been ongoing for only 5 hours, it is certainly not reasonable to do a CT at this time especially that she is in the first trimester. Told her she needs a repeat abdominal examination tomorrow. If she cannot see her OB or her doctor she is come to the emergency department. She understands this. In the meantime we will treat her with GoLYTELY. She was treated with Keflex for her urinary tract infection, urine was cultured. Disposition: Discharge stable condition Impression: Abdominal pain Glucosuria Constipation Urinary tract infection This note was generated with [employer] dictation software. It may contain incorrect words, spelling, and punctuation that were not noted in review of the chart prior to signing ED Disposition - Plan for ED Patient: Disposition: Home or Assisted Living Instructions: ED Abdominal Pain Unkn Cause, ED UTI Cystitis Female Prescriptions: Cephalexin [Keflex] 500 mg PO 4X/DAY #40 cap Referrals: Rosalba Matta MD [STAFF PHYSICIAN] - 2 Days Yovanny Navarro MD [Primary Care Provider] - 2 Days Additional Instructions: You were found to have sugar in your urine, follow-up with Dr. Oliver Antunez for diabetic testing. Your blood sugar was normal in the emergency department.
[2019-03-12] MEDS: Electrolyte Solution/Peg's 4000 ML 2000 ML PO (20:25)
[2019-03-12] MEDS: Cephalexin 250 MG Capsule 500 MG PO (20:25)
== END 2019-03-12 20:26 | disposition home or self-care (01) ==
PROVIDERS: Emergency Provider Emergency Medicine; Family Provider Family Medicine; PCP Family Medicine
DX: O99.89 Other specified diseases and conditions complicating pregnancy, childbirth and the puerperium (principal); K59.00 Constipation, unspecified; O23.41 Unspecified infection of urinary tract in pregnancy, first trimester; O99.810 Abnormal glucose complicating pregnancy; Z3A.09 9 weeks gestation of pregnancy
CPT/HCPCS: 74018; 80053; 81001; 85025; 87086; 87088; 99285; J7030

== ENCOUNTER 2019-03-21 17:28 | Emergency (ER) | payer MEDICAID, SELFPAY ==
[2019-03-21 17:31] VITALS: BP 120/78; PULSE 108; RESP 16; TEMP 36.3; BMI 27.5
--- NOTE | 2019-03-21 18:36 | ED.DCSUM_ITS ---
- ER Visit Summary Date of Service: 03/21/19 Chief Complaint: White stool History of Present Illness: The patient is a 18 F history of chronic constipation. Currently 10 weeks . Due date 10/15/2019. Patient states that she was treated for constipation about 1 to 2 weeks ago. Treated with GoLYTELY. She is also currently being treated for a UTI with Keflex. She is been on the antibiotic about a week. She is been having white stool for the last 5 days. No melena. No diarrhea. No fever. No other symptoms. She has had nausea and vomiting with the . Physical Examination: Well-appearing young female. Vital signs are stable afebrile. HEENT exam unremarkable. Neck nontender no lymphadenopathy. Lungs clear to auscultation bilaterally. Heart regular rhythm no murmur. Abdomen soft nontender. Normal bowel sounds no peritoneal signs. Extremities moves all 4. Calves nontender no edema. Neurologically she is awake alert moving all 4 extremities no focal motor deficits. Test Results: CBC normal white count of 9. Hemoglobin 13. Left lites unremarkable normal creatinine and gap. Liver enzymes normal. Lipase normal. Emergency Department Course and Treatment: On repeat exam patient is doing well at 2040 3 PM. She feels fine. She is comfortable being discharged home. Treatment Plan: If discolored stools continue she is to follow-up with primary care physician for further evaluation. Her Disposition: Discharge Impression: Acute discolored stool of uncertain etiology. First trimester This note was generated with [employer] software. It may contain incorrect words, spelling, and punctuation that were not noted in review of the chart prior to signing ED Disposition - Plan for ED Patient: Referrals: Yovanny Navarro MD [Primary Care Provider] -
[2019-03-21 19:01] LABS: Absolute Lymphocyte Count 2.87 X10^3/ul (0.83-4.51); Basophil# 0.01 X10^3/uL; Basophil% 0.1 % (0-1); Eosinophil# 0.22 X10^3/uL; Eosinophils% 2.2 % (0-5); Hemoglobin 13.5 g/dl (12.0-15.0); Lymphocyte # 2.87 X10^3/ul (4.0); Lymphocyte % 29.1 % (19-41); Mean Corp Hgb Conc 35.5 g/gl (32-36); Mean Corpuscular Volume 87.4 fL (81-99); Mean Platelet Vol. 9.7 fl (6.2-12.0); Monocyte# 0.78 X10^3/uL; Monocyte% 7.9 % (0-10); Neutrophil # 5.95 X10^3/uL (2.7-7.7); Neutrophil % 60.5 % (47-70); POSITIVE COUNT NO; POSITIVE DIFFERENTIAL NO; POSITIVE MORPHOLOGY NO; Platelet Count 283 K/mm3 (150-450); RBC Distribution Width CV 12.4 % (11.6-14.6); Red Blood Count 4.35 M/mm3 (4.2-5.4); White Blood Count 9.9 K/mm3 (4.4-11.0)
[2019-03-21 19:18] LABS: AST(SGOT) 11 U/L (15-37); Alanine Aminotransfer ALT/SGPT 15 U/L (13-56); Albumin, Serum 3.3 g/dL (3.2-5.0); Alkaline Phosphatase 41 U/L (45-117); Anion Gap 7 (5-15); BUN 6 mg/dL (7-18); BUN/Creat Ratio 10.4 RATIO (10-20); Bilirubin, Direct 0.07 mg/dL (0.00-0.30); Calcium,Total 8.5 mg/dL (8.5-10.1); Chloride 108 mmol/L (98-107); Creatinine, Serum 0.58 mg/dL (0.55-1.02); EST Glomerular Filtration Rate 141 mL/min (>60); Est Glom Filt Rate - Afr Amer 170 mL/min (>60); Estimated Creatinine Clearance 150.46 ml/min; Globulin 3.5 g/dL (2.2-4.2); Glucose 82 mg/dL (74-106); Lipase 132 U/L (73-393); Potassium 3.6 mmol/L (3.5-5.1); Protein, Total 6.8 g/dL (6.4-8.2); Sodium Level 139 mmol/L (136-145)
--- NOTE | 2019-03-21 20:44 | ED.DEP ---
ED Disposition - Plan for ED Patient: Disposition: Home or Assisted Living Referrals: Yovanny Navarro MD [Primary Care Provider] - 1 Week if not improving Additional Instructions: This should resolve if it does not you continue to have white or discolored stool follow-up with your primary care physician for further evaluation. All your blood work and labs today were normal.
[2019-03-21 21:02] VITALS: BP 113/72; PULSE 82; RESP 16; O2SAT 99
== END 2019-03-21 21:02 | disposition home or self-care (01) ==
PROVIDERS: Emergency Provider Emergency Medicine; Family Provider Family Medicine; PCP Family Medicine
DX: O99.89 Other specified diseases and conditions complicating pregnancy, childbirth and the puerperium (principal); R19.5 Other fecal abnormalities; O26.891 Other specified pregnancy related conditions, first trimester; R10.9 Unspecified abdominal pain; Z3A.10 10 weeks gestation of pregnancy
CPT/HCPCS: 80048; 80076; 83690; 85025; 99285; J7030

== ENCOUNTER 2019-03-23 06:36 | Emergency (ER) | payer MEDICAID, SELFPAY ==
[2019-03-23 06:36] VITALS: BP 119/71; PULSE 95; RESP 16; O2SAT 99
[2019-03-23 06:37] VITALS: TEMP 36.8; BMI 27.9
--- NOTE | 2019-03-23 07:09 | ED.DCSUM_ITS ---
History of Present Illness Chief Complaint: Abd Pain Informant: Patient, Significant Other Onset: Today Context: Sudden Onset Timing: Continuous Quality: Severe pain Location: Left upper quadrant Current Severity: Mild Maximum Severity: Severe Worsened by: Sitting upright Relieved by: Nothing Associated Symptoms: Nausea and vomiting x2 Narrative: Patient is a 18-year-old G2, P1 female 10 weeks gestation who presents because of severe left upper quadrant pain that awoke her from sleep with nausea and vomiting x2. Patient and state vomiting was projectile. There was no blood or coffee grounds noted. She denies fever, chills night sweats. She denies cough, shortness of breath or difficulty breathing. She denies chest discomfort. She denies flank pain. She denies constipation or diarrhea. She denies black or maroon stool. She completed a course of antibiotics for UTI. She denies food intolerance. There is no family history of cholelithiasis. She denies history of pancreatitis. Prior similar symptoms: No Recent Illness/Hospitalization: No - Past Medical History (1) History of labor Status: Resolved Comment: Delivered at 32 weeks. Fever, elevated bp-thought sepsis but no evaluation of placenta. Progesterone inj 16-36 wk; MFM US @ 16 wk to check cervical length Past Medical History - Allergies and Home Meds Allergies/Adverse Reactions: Allergies No Known Allergies Allergy (Verified 03/23/19 06:42) Primary Care Physician: Yovanny Navarro MD [Primary Care Provider] - Prior records reviewed: Yes Surgical History: no surgical history Lives: Spouse/ Significant Other, With Family Smoking Status: Never smoker Alcohol: None Review of Systems General: Denies: Chills, Fever, Malaise, Subjective, Sweats Eyes: Denies: Visual changes - bilaterally, Blurred Vision - bilaterally, Diplopia ENT: Denies: Rhinorrhea, Sore throat Cardiovascular: Denies: Chest pain, Palpitations Respiratory: Denies: Dyspnea, Cough, Dyspnea on exertion Gastrointestinal: Reports: Abdominal pain, Nausea, Vomiting Genitourinary: Denies: Dysuria, Hematuria, Frequency, -, - Musculoskeletal: Denies: Myalgias, Arthralgias, Back pain, Swelling, Extremity Pain Skin: Denies: Rash, Wounds Neurological: Denies: Headache, Weakness, Numbness Hematologic: Denies: Easy bruising, Easy bleeding Allergy: Denies: Uticaria Physical Exam Vital Signs/Narrative: Vital Signs Temp Pulse Resp BP Pulse Ox 03/23/19 06:37 98.3 F 03/23/19 06:36 95 16 119/71 99 Inital Vital Signs reviewed: Yes General: Well nourished, Well developed, No Acute Distress, - - Patient appears pale and ill but not toxic. Head: Normocephalic, Atraumatic Eyes: Perrl, EOMI. Negative for: Pale conjunctiva, Scleral icterus, - ENT: No rhinorrhea, TM's clear, Dry mucous membranes Neck: Supple, Nontender, No lymphadenopathy, No JVD Cardiovascular: Regular rate, Regular rhythm, No murmurs, Normal S1, Normal S2 Respiratory: No distress, CTA bilaterally, Chest nontender Abdomen: Soft, Nondistended, No masses, Tender, Hypoactive bowel sounds. Negative for: Guarding, Rebound tenderness, Hyperactive bowel sounds, Hepatomegaly, Splenomegaly, Mass, Pulsatile mass, Odell's sign Rectal: Deferred Back: Nontender, Normal Inspection. Negative for: CVA tenderness Extremities: Nontender Skin: No rash, Pallor. Negative for: Cyanosis, Diaphoresis, Jaundice Neurological: Alert, Oriented x3, Cranial nerves II-XII grossly intact, Normal Strength, Normal Sensation Psychological: Normal affect, Normal Mood Diagnostic/Tx/Re-eval Laboratory Results 03/23/19 03/23/19 03/23/19 07:25 07:25 07:30 WBC 9.2 RBC 4.67 Hgb 14.5 Hct 40.5 MCV 86.7 MCH 31.0 MCHC 35.8 RDW 12.5 RDW Differential 39.9 Plt Count 264 MPV 9.6 Immature Gran % (Auto) 0.100 Neut % (Auto) 70.2 H Lymph % (Auto) 21.7 Smyth % (Auto) 6.1 Eos % (Auto) 1.7 Baso % (Auto) 0.2 Absolute Neuts (auto) 6.5 Absolute Lymphs (auto) 2.00 Total Counted Not Reportable Sodium 138 Potassium 3.4 L Chloride 108 H Carbon Dioxide 23.0 Anion Gap 7 BUN 5 L Creatinine 0.62 Estim Creat Clear Calc 140.75 Est GFR (MDRD) Af Amer 157 Est GFR (MDRD) Non-Af 130 BUN/Creatinine Ratio 8.1 L Glucose 87 Calcium 8.7 Total Bilirubin 0.40 AST 14 L ALT 17 Alkaline Phosphatase 42 L Total Protein 6.9 Albumin 3.4 Globulin 3.5 Albumin/Globulin Ratio 1.0 Lipase 112 Urine Color Yellow Urine Clarity Sl. Cloudy Urine pH 8.0 Ur Specific [place] 1.015 Urine Protein Negative Urine Glucose (UA) Normal Urine Ketones 5 H Urine Occult Blood Negative Urine Nitrite Negative Urine Bilirubin Negative Urine Urobilinogen Normal Ur Leukocyte Esterase 500 H Urine RBC 0 SEEN Urine WBC 0-5 SEEN Ur Squamous Epith Cells 0 SEEN Amorphous Sediment 1+ Urine Bacteria 2+ Urine Mucus 0 SEEN - Medical Decision Making With abrupt onset of left upper quadrant pain with nausea and vomiting and one needs to consider biliary etiology. This may be secondary to . She is presently on Zofran. This may represent an atypical presentation of pyelonephritis. Will assess UA, CBC, liver enzymes and lipase. Patient declined pain medicine. She was given Zofran for her nausea and vomiting. She also received 1 L of normal saline since clinically she appears dry. Patient was informed of results at 0755. She is smiling sitting up. She was informed her white count is unremarkable. She was informed that her conference of metabolic panel was unremarkable. Urine is positive for blood and leukoesterase, but is negative for nitrites. There is no pyuria but there is 2+ bacteria with no epithelial cells noted. Culture was sent since she is . She did receive 1 g of Rocephin IV piggyback. Since she no longer is nauseated and her pain has resolved and on exam her abdomen is nontender will have nurse give her fluids to determine if she is able to drink without having any vomiting. Will reassess in 30 to 60 minutes. Patient was discharged home with prescription for Macrobid. She was instructed to follow-up with her OB Dr. Oliver Antunez. ED Disposition - Plan for ED Patient: Disposition: Home or Assisted Living Diagnosis: Bacteria in urine, First trimester , Acute abdominal pain in left upper quadrant, Nausea and vomiting during Instructions: ED Abdominal Pain Unkn Cause, ED UTI Cystitis Female Prescriptions: Nitrofurantoin Macrocrystals [Macrobid] 100 mg PO Q12 #14 capsule Referrals: Yovanny Navarro MD [Primary Care Provider] - Rosalba Matta MD [STAFF PHYSICIAN] - 3-5 Days Additional Instructions: Your prescription was electronically transmitted to [facility] pharmacy in [place] your designated pharmacy of choice.
[2019-03-23] MEDS: Ondansetron 4 MG/2 ML Vial IV (07:22)
[2019-03-23] MEDS: 0.9% Normal Saline 1,000 ML 1000 ML IV (07:22)
[2019-03-23 07:33] LABS: Absolute Neutrophil Count 6.5 X10^3/uL (2.0-7.7); Basophil# 0.02 X10^3/uL; Basophil% 0.2 % (0-1); Eosinophil# 0.16 X10^3/uL; Eosinophils% 1.7 % (0-5); Hematocrit 40.5 % (37-47); Hemoglobin 14.5 g/dl (12.0-15.0); Lymphocyte % 21.7 % (19-41); Mean Corp Hgb Conc 35.8 g/gl (32-36); Mean Corpuscular Volume 86.7 fL (81-99); Mean Platelet Vol. 9.6 fl (6.2-12.0); Monocyte# 0.56 X10^3/uL; Monocyte% 6.1 % (0-10); Neutrophil # 6.45 X10^3/uL (2.7-7.7); Neutrophil % 70.2 % (47-70); POSITIVE COUNT NO; POSITIVE DIFFERENTIAL NO; POSITIVE MORPHOLOGY NO; Platelet Count 264 K/mm3 (150-450); RBC Distribution Width CV 12.5 % (11.6-14.6); RBC Distribution Width SD 39.9 fl (35.1-43.9); Red Blood Count 4.67 M/mm3 (4.2-5.4); White Blood Count 9.2 K/mm3 (4.4-11.0)
[2019-03-23 07:41] LABS: Mucous, Urine 0 SEEN /hpf (<or=2+); Red Blood Cells-Urine 0 SEEN /hpf (0-5); Squamous Epithelial Cells - UA 0 SEEN /hpf (5-10)
[2019-03-23] MEDS: Morphine 4 MG/ML Syringe IV (07:42)
[2019-03-23 07:48] LABS: AST(SGOT) 14 U/L (15-37); Alanine Aminotransfer ALT/SGPT 17 U/L (13-56); Albumin, Serum 3.4 g/dL (3.2-5.0); Alkaline Phosphatase 42 U/L (45-117); Anion Gap 7 (5-15); BUN 5 mg/dL (7-18); BUN/Creat Ratio 8.1 RATIO (10-20); Calcium,Total 8.7 mg/dL (8.5-10.1); Chloride 108 mmol/L (98-107); Creatinine, Serum 0.62 mg/dL (0.55-1.02); EST Glomerular Filtration Rate 130 mL/min (>60); Est Glom Filt Rate - Afr Amer 157 mL/min (>60); Estimated Creatinine Clearance 140.75 ml/min; Globulin 3.5 g/dL (2.2-4.2); Glucose 87 mg/dL (74-106); Lipase 112 U/L (73-393); Potassium 3.4 mmol/L (3.5-5.1); Protein, Total 6.9 g/dL (6.4-8.2); Sodium Level 138 mmol/L (136-145)
[2019-03-23 07:54] LABS: Color, Urine Yellow (Yellow); Glucose, Dipstick Normal (Normal); Ketone-Dipstick 5 mg/dl (Negative); Leukocyte Esterase-Dipstick 500 /ul (Negative); Nitrite-Dipstick Negative (Negative); Occult Blood-Urine Negative /ul (Negative); Protein-Dipstick Negative (Negative); Specific Gravity, Urine 1.015 (1.002-1.030); Urine Bilirubin Dipstick Negative (Negative); Urine Clarity Sl. Cloudy (Clear); Urine Urobilinogen Normal (Normal)
[2019-03-23 07:56] LABS: Amorphous Sediment 1+; Bacteria 2+ /hpf (None Seen); White Blood Cells 0-5 SEEN /hpf (0-5)
[2019-03-23] MEDS: Ceftriaxone 1 GM/50 ML BAG IV (08:35)
[2019-03-23 08:37] VITALS: RESP 18
== END 2019-03-23 09:22 | disposition home or self-care (01) ==
PROVIDERS: Emergency Provider Emergency Medicine; Family Provider Family Medicine; PCP Family Medicine
DX: O99.89 Other specified diseases and conditions complicating pregnancy, childbirth and the puerperium (principal); R82.71 Bacteriuria; O26.891 Other specified pregnancy related conditions, first trimester; R10.12 Left upper quadrant pain; O21.9 Vomiting of pregnancy, unspecified; Z3A.10 10 weeks gestation of pregnancy
CPT/HCPCS: 36415; 80053; 81001; 83690; 85025; 87086; 87088; 96361; 96365; 96375; 99285; J7030; J7050; A4216; J2405

== ENCOUNTER → 2019-03-23 10:19 | Outpatient (CLI) | payer MEDICAID, SELFPAY ==
[2019-03-23 10:13] VITALS: BMI 27.9
== END ==
PROVIDERS: Family Provider Family Medicine; PCP Family Medicine; Referring Provider Nurse Practitioner Women's Health; Visit Provider Nurse Practitioner Women's Health
DX: Z34.81 Encounter for supervision of other normal pregnancy, first trimester (principal)
CPT/HCPCS: 36415

== ENCOUNTER 2019-03-26 15:46 | Emergency (ER) | payer MEDICAID, SELFPAY ==
[2019-03-25 13:42] VITALS: BMI 27.9
[2019-03-26 15:47] VITALS: BP 120/67; PULSE 96; RESP 16; TEMP 36.6; O2SAT 99; BMI 27.0
--- NOTE | 2019-03-26 15:57 | US_ITS ---
STUDY: RENAL ULTRASOUND - COMPLETE REASON FOR EXAM: Female, 18 years old. Flank pain TECHNIQUE: Ultrasound evaluation of the kidneys was performed with real-time and static sarmiento-scale imaging. COMPARISON: None. FINDINGS: RIGHT KIDNEY: Normal location of the right kidney, which is normal in size. The right kidney measures 11.2 x 5.0 x 4.1 cm. There is a normal cortex of the right kidney. The renal cortex measures 1.3 cm. There is no right renal mass or cyst. There are no right renal calculi. There is no right hydronephrosis. DISTAL RIGHT URETER: There is non-visualization of the distal right ureter. There is no demonstrated right ureterovesical junction calculus. There is a visualized right ureteral jet. LEFT KIDNEY: Normal location of the left kidney, which is normal in size. The left kidney measures 11.8 x 4.2 x 4.2 cm. There is a normal cortex of the left kidney. The renal cortex measures 1.8 cm. There is no left renal mass or cyst. There are no left renal calculi. There is no left hydronephrosis. DISTAL LEFT URETER: There is non-visualization of the distal left ureter. There is no demonstrated left ureterovesical junction calculus. There is a visualized left ureteral jet. BLADDER: The distended urinary bladder has a volume of 23.3 ml. There is a normal wall thickness of the distended urinary bladder. There is no demonstrated mass within the urinary bladder. There are no demonstrated bladder calculi. US/Kidney and Bladder IMPRESSION: Normal ultrasound of the kidneys and urinary bladder. No hydronephrosis. Electronically Signed: Devang Thornton MD at 16:57 EDT Tel , Service support ,
[2019-03-26 16:14] LABS: Absolute Lymphocyte Count 2.14 X10^3/ul (0.83-4.51); Absolute Neutrophil Count 6.5 X10^3/uL (2.0-7.7); Basophil# 0.01 X10^3/uL; Basophil% 0.1 % (0-1); Eosinophil# 0.19 X10^3/uL; Hemoglobin 13.5 g/dl (12.0-15.0); Lymphocyte # 2.14 X10^3/ul (4.0); Lymphocyte % 22.8 % (19-41); Mean Corp Hgb Conc 35.5 g/gl (32-36); Mean Corpuscular Volume 87.2 fL (81-99); Mean Platelet Vol. 9.5 fl (6.2-12.0); Monocyte# 0.56 X10^3/uL; Neutrophil # 6.48 X10^3/uL (2.7-7.7); Neutrophil % 68.9 % (47-70); Platelet Count 294 K/mm3 (150-450); RBC Distribution Width CV 12.5 % (11.6-14.6); RBC Distribution Width SD 40.4 fl (35.1-43.9); Red Blood Count 4.36 M/mm3 (4.2-5.4); White Blood Count 9.4 K/mm3 (4.4-11.0)
[2019-03-26 16:19] LABS: POSITIVE COUNT NO; POSITIVE DIFFERENTIAL NO; POSITIVE MORPHOLOGY NO
[2019-03-26 16:36] LABS: ALB/GLOB Ratio 0.9 RATIO (0.9-2.4); AST(SGOT) 15 U/L (15-37); Alanine Aminotransfer ALT/SGPT 20 U/L (13-56); Albumin, Serum 3.4 g/dL (3.2-5.0); Alkaline Phosphatase 46 U/L (45-117); Anion Gap 7 (5-15); BUN 4 mg/dL (7-18); BUN/Creat Ratio 5.8 RATIO (10-20); Calcium,Total 8.9 mg/dL (8.5-10.1); Chloride 107 mmol/L (98-107); Creatinine, Serum 0.69 mg/dL (0.55-1.02); EST Glomerular Filtration Rate 115 mL/min (>60); Est Glom Filt Rate - Afr Amer 139 mL/min (>60); Estimated Creatinine Clearance 126.47 ml/min; Globulin 3.6 g/dL (2.2-4.2); Glucose 107 mg/dL (74-106); Lipase 173 U/L (73-393); Potassium 3.3 mmol/L (3.5-5.1); Sodium Level 139 mmol/L (136-145)
[2019-03-26 16:49] LABS: Bacteria 0 SEEN /hpf (None Seen); Mucous, Urine 0 SEEN /hpf (<or=2+); Red Blood Cells-Urine 0 SEEN /hpf (0-5)
[2019-03-26 17:11] LABS: Color, Urine Yellow (Yellow); Glucose, Dipstick 250 mg/dl (Normal); Ketone-Dipstick 15 mg/dl (Negative); Leukocyte Esterase-Dipstick Negative /ul (Negative); Nitrite-Dipstick Negative (Negative); Occult Blood-Urine Negative /ul (Negative); Protein-Dipstick Negative (Negative); Urine Bilirubin Dipstick Negative (Negative); Urine Clarity Clear (Clear); Urine Urobilinogen Normal (Normal)
[2019-03-26 17:26] LABS: Squamous Epithelial Cells - UA 0-5 SEEN /hpf (5-10); White Blood Cells 0-5 SEEN /hpf (0-5)
--- NOTE | 2019-03-26 17:54 | ED.VISSUMM ---
- ER Visit Summary Date of Service: 03/26/19 Chief Complaint: Abdominal pain History of Present Illness: The patient is a 18 F G2, P1 at 11 weeks. Reports upper abdominal pain for the past 2 weeks. 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 Was treated for bacteriuria and is currently on Macrobid. She has continued symptoms and was concerned for kidney stones or infection. Denies fevers. Denies any other symptoms except for nausea. No surgical history. Physical Examination: Afebrile and vital signs unremarkable. Patient appears uncomfortable but not toxic or in distress. Heart regular. No respiratory distress. Abdomen tender in the upper hemiabdomen. No guarding or rebound. Extremities unremarkable. Skin normal. Test Results: heart tones 140. CBC normal. Potassium 3.3. Hepatic panel and lipase unremarkable. Urinalysis unremarkable. Ultrasound of her kidneys is normal. Emergency Department Course and Treatment: Patient discussed with Dr. Grant. Her work-up is reassuring. Nothing to suggest kidney stones or pyelonephritis. Urinalysis is reassuring. Ultrasound is reassuring. He advised treatment with Pepcid and follow-up in the office. Treatment Plan: As above Disposition: Discharge Impression: 1. Abdominal pain 2. This note was generated with [employer] dictation software. It may contain incorrect words, spelling, and punctuation that were not noted in review of the chart prior to signing ED Disposition - Plan for ED Patient: Referrals: Yovanny Navarro MD [Primary Care Provider] -
--- NOTE | 2019-03-26 17:56 | ED.DEP ---
ED Disposition - Plan for ED Patient: Instructions: ED Abdominal Pain Unkn Cause Prescriptions: Famotidine [Pepcid] 20 mg PO BID #28 tab Referrals: Rosalba Matta MD [STAFF PHYSICIAN] -
[2019-03-26 18:14] VITALS: BP 105/59; PULSE 86; RESP 16; O2SAT 97
[2019-03-26] MEDS: Famotidine 20 MG Tablet PO (18:16)
== END 2019-03-26 18:20 | disposition home or self-care (01) ==
LOC: ED 16:17
PROVIDERS: Emergency Provider Emergency Medicine; Family Provider Family Medicine; PCP Family Medicine
DX: O26.891 Other specified pregnancy related conditions, first trimester (principal); R10.10 Upper abdominal pain, unspecified; Z3A.11 11 weeks gestation of pregnancy
CPT/HCPCS: 76770; 80053; 81001; 83690; 85025; 99284; A4216

== ENCOUNTER 2019-04-27 21:35 | Emergency (ER) | payer MEDICAID, SELFPAY ==
[2019-04-23 11:22] VITALS: BMI 27.0
[2019-04-27 21:36] VITALS: BP 127/68; PULSE 115; RESP 18; TEMP 36.7; O2SAT 97; BMI 27.3
[2019-04-27 21:47] VITALS: RESP 16
--- NOTE | 2019-04-27 22:14 | ED.DCSUM_ITS ---
- ER Visit Summary Date of Service: 04/27/19 Chief Complaint: Left lower quadrant pain History of Present Illness: The patient is a 18 F who is G2, P1 at approximately 16 weeks gestation presents to the emergency department left lower quadrant pain. Symptoms began earlier today. She describes a sharp pain. It is not moved her back. She denies any nausea. She denies any vomiting. She had no urinary frequency, urgency, or dysuria. She said no vaginal bleeding. She denies any gush of fluids. She is only currently on her prenatals. Physical Examination: Vital signs reviewed General: Well-nourished, well-developed Head: Normocephalic, atraumatic Eyes: Pupils equal and reactive, extraocular muscles intact Neck, supple, no lymphadenopathy Heart: Regular rate and rhythm Respiratory: No distress, clear bilaterally Abdomen: Soft, mildly tender in the suprapubic area in the left lower quadrant without rebound or guarding, nondistended, no peritoneal signs Back: Nontender Extremities: Nontender, no edema, no cords Skin: Normal color no rash Neuro: Alert and oriented, no focal or lateralizing deficits Test Results: [] Emergency Department Course and Treatment: Bedside ultrasound was performed. There is single live intrauterine . Fluid is normal. Heart rate is 140s and reactive. There is active motion. There is no free fluid visible in the pelvis. Screening labs are obtained were unremarkable. The urine does show some trace evidence of infection. As the patient is , I will treat her. She is given her first dose of Macrobid and urine was sent for culture. My suspicion is that this is likely round ligament pain. The patient is resting comfortably. She has no right lower quadrant tenderness. I do not suspect appendicitis or other dangerous process. Patient is resting comfortably. At this time, she will be discharged to follow-up with SOFTWARE VALIDATION ENGINEER and return with any worsening symptoms. Treatment Plan: [] Disposition: Discharge Impression: 1. Pelvic pain 2. Cystitis This note was generated with [employer] dictation software. It may contain incorrect words, spelling, and punctuation that were not noted in review of the chart prior to signing ED Disposition - Plan for ED Patient: Instructions: ED Pelvic Pain Preg UKO 2 or 3 Tri Prescriptions: Nitrofurantoin Macrocrystals [Macrobid] 100 mg PO Q12 #14 cap Referrals: Rosalba Matta MD [STAFF PHYSICIAN] -
[2019-04-27] MEDS: 0.9% Normal Saline 1,000 ML 1000 ML IV (22:30)
[2019-04-27 22:37] LABS: Mucous, Urine 0 SEEN /hpf (<or=2+); Red Blood Cells-Urine 0 SEEN /hpf (0-5)
[2019-04-27 22:40] LABS: Absolute Lymphocyte Count 2.89 X10^3/ul (0.83-4.51); Absolute Neutrophil Count 6.4 X10^3/uL (2.0-7.7); Basophil# 0.02 X10^3/uL; Basophil% 0.2 % (0-1); Eosinophil# 0.27 X10^3/uL; Eosinophils% 2.6 % (0-5); Hematocrit 36.3 % (37-47); Lymphocyte # 2.89 X10^3/ul (4.0); Lymphocyte % 27.9 % (19-41); Mean Corp Hgb Conc 35.8 g/gl (32-36); Mean Corpuscular Hgb 31.2 pg (27.0-32.0); Mean Corpuscular Volume 87.1 fL (81-99); Mean Platelet Vol. 9.5 fl (6.2-12.0); Monocyte# 0.79 X10^3/uL; Monocyte% 7.6 % (0-10); Neutrophil # 6.35 X10^3/uL (2.7-7.7); Neutrophil % 61.5 % (47-70); POSITIVE COUNT NO; POSITIVE DIFFERENTIAL NO; POSITIVE MORPHOLOGY NO; Platelet Count 274 K/mm3 (150-450); RBC Distribution Width CV 12.9 % (11.6-14.6); RBC Distribution Width SD 40.9 fl (35.1-43.9); Red Blood Count 4.17 M/mm3 (4.2-5.4); White Blood Count 10.3 K/mm3 (4.4-11.0)
[2019-04-27 22:50] LABS: Color, Urine Yellow (Yellow); Glucose, Dipstick 100 mg/dl (Normal); Ketone-Dipstick Negative (Negative); Leukocyte Esterase-Dipstick 100 /ul (Negative); Nitrite-Dipstick Negative (Negative); Occult Blood-Urine Negative /ul (Negative); Protein-Dipstick Negative (Negative); Specific Gravity, Urine 1.015 (1.002-1.030); Urine Bilirubin Dipstick Negative (Negative); Urine Clarity Clear (Clear); Urine Urobilinogen Normal (Normal)
[2019-04-27 22:52] LABS: Anion Gap 8 (5-15); BUN 5 mg/dL (7-18); Calcium,Total 8.8 mg/dL (8.5-10.1); Chloride 109 mmol/L (98-107); Creatinine, Serum 0.62 mg/dL (0.55-1.02); EST Glomerular Filtration Rate 129 mL/min (>60); Est Glom Filt Rate - Afr Amer 156 mL/min (>60); Estimated Creatinine Clearance 140.75 ml/min; Glucose 82 mg/dL (74-106); Potassium 3.6 mmol/L (3.5-5.1); Sodium Level 140 mmol/L (136-145)
[2019-04-27 22:53] LABS: White Blood Cells 5-10 SEEN /hpf (0-5)
[2019-04-27 22:54] LABS: Bacteria 1+ /hpf (None Seen); Squamous Epithelial Cells - UA 0-5 SEEN /hpf (5-10)
[2019-04-27] MEDS: Nitrofurantoin Macrocrystals 100 MG Capsule PO (23:07)
[2019-04-27 23:10] VITALS: BP 111/87; PULSE 85; RESP 15; O2SAT 99
--- NOTE | 2019-04-27 23:10 | ED.RN ---
PT GIVEN WRITTEN AND VERBAL DISCHARGE INSTRUCTIONS AND HOME GOING PRESCRIPTIONS. PT VERBALIZES UNDERSTANDING AND DENIES ANY FURTHER QUESTIONS. IV D/C AND COVERED WITH 2X2 GAUZE AND PAPER TAPE. PT AMBULATES OUT OF DEPT WITH FAMILY.
== END 2019-04-27 23:12 | disposition home or self-care (01) ==
PROVIDERS: Emergency Provider Emergency Medicine; Family Provider Family Medicine; PCP Family Medicine
DX: O26.892 Other specified pregnancy related conditions, second trimester (principal); R10.2 Pelvic and perineal pain; O23.12 Infections of bladder in pregnancy, second trimester; Z3A.16 16 weeks gestation of pregnancy
CPT/HCPCS: 80048; 81001; 85025; 87086; 87088; 96360; 99285; J7030

== ENCOUNTER 2019-05-08 22:49 | Emergency (ER) | payer MEDICAID, SELFPAY ==
[2019-05-04 14:02] VITALS: BMI 27.3
[2019-05-08 22:50] VITALS: BP 120/67; PULSE 100; RESP 18; TEMP 36.6; O2SAT 97; BMI 27.2
--- NOTE | 2019-05-08 23:07 | ED.VISSUMM ---
- ER Visit Summary Date of Service: 05/08/19 Chief Complaint: Abdominal pain History of Present Illness: The patient is a 19 F presenting with abdominal pain. She is 17 weeks . She states this started earlier tonight. She complains of abdominal pain, nausea, vomiting. She has a history of chronic constipation and feels this is causing her pain. She states she did have a bowel movement 1 hour ago but it was small. She denies lower quadrant abdominal pain. Denies vaginal bleeding or fluid leakage. She is . She follows with Dr. Matta. Denies other complaints. Physical Examination: Vitals are stable. Patient is afebrile. Alert no acute distress. HEENT exam is unremarkable. Neck is supple. Lungs are clear and equal bilaterally. Heart is regular rate and rhythm. Abdomen is soft mild epigastric tenderness with no rebound or guarding. No lower quadrant tenderness. Extremities are unremarkable. Skin is warm and dry. Remainder of exam is unremarkable. Emergency Department Course and Treatment: Patient was given IV fluids, Zofran. CBC shows white count 14.3. Chemistries normal. Liver lipase are normal. heart tones 128. Patient has a scheduled appointment with her STORE TEAM LEADER in a couple of days. She states GoLYTELY has helped her in the past and she is requesting GoLYTELY. She is given GoLYTELY for home. She is advised to follow-up with her STORE TEAM LEADER. Advised return to the ED for worsening complaints. Disposition: Discharge home Impression: Abdominal pain, constipation, This note was generated with [employer] dictation software. It may contain incorrect words, spelling, and punctuation that were not noted in review of the chart prior to signing ED Disposition - Plan for ED Patient: Instructions: ED Abdominal Pain Unkn Cause Referrals: Yovanny Navarro MD [Primary Care Provider] - Rosalba Matta MD [STAFF PHYSICIAN] -
--- NOTE | 2019-05-08 23:10 | ED.DCSUM_ITS ---
- ER Visit Summary Date of Service: 05/08/19 Chief Complaint: Abdominal pain History of Present Illness: The patient is a 19 F presenting with abdominal pain. She is 17 weeks . She states this started earlier tonight. She complains of abdominal pain, nausea, vomiting. She has a history of chronic constipation and feels this is causing her pain. She states she did have a bowel movement 1 hour ago but it was small. She denies lower quadrant abdominal pain. Denies vaginal bleeding or fluid leakage. She is . She follows with Dr. Matta. Denies other complaints. Physical Examination: Vitals are stable. Patient is afebrile. Alert no acute distress. HEENT exam is unremarkable. Neck is supple. Lungs are clear and equal bilaterally. Heart is regular rate and rhythm. Abdomen is soft mild epigastric tenderness with no rebound or guarding. No lower quadrant tenderness. Extremities are unremarkable. Skin is warm and dry. Remainder of exam is unremarkable. Emergency Department Course and Treatment: Patient was given IV fluids, Zofran. CBC shows white count 14.3. Chemistries normal. Liver lipase are normal. heart tones 128. Patient has a scheduled appointment with her XEROX MACHINE OPERATOR in a couple of days. She states GoLYTELY has helped her in the past and she is requesting GoLYTELY. She is given GoLYTELY for home. She is advised to follow- up with her XEROX MACHINE OPERATOR. Advised return to the ED for worsening complaints. Disposition: Discharge home Impression: Abdominal pain, constipation, This note was generated with [employer] dictation software. It may contain incorrect words, spelling, and punctuation that were not noted in review of the chart prior to signing ED Disposition - Plan for ED Patient: Instructions: ED Abdominal Pain Unkn Cause Referrals: Yovanny Navarro MD [Primary Care Provider] - Rosalba Matta MD [STAFF PHYSICIAN] -
[2019-05-08 23:24] VITALS: RESP 16
[2019-05-08] MEDS: 0.9% Normal Saline 1,000 ML 1000 ML IV (23:24)
[2019-05-08] MEDS: Ondansetron 4 MG/2 ML Vial IV (23:24)
[2019-05-08 23:39] LABS: Absolute Lymphocyte Count 2.94 X10^3/ul (0.83-4.51); Absolute Neutrophil Count 10.1 X10^3/uL (2.0-7.7); Basophil# 0.03 X10^3/uL; Basophil% 0.2 % (0-1); Eosinophil# 0.22 X10^3/uL; Eosinophils% 1.5 % (0-5); Hematocrit 37.1 % (37-47); Hemoglobin 13.5 g/dl (12.0-15.0); Lymphocyte # 2.94 X10^3/ul (4.0); Lymphocyte % 20.6 % (19-41); Mean Corp Hgb Conc 36.4 g/gl (32-36); Mean Corpuscular Hgb 31.5 pg (27.0-32.0); Mean Corpuscular Volume 86.7 fL (81-99); Mean Platelet Vol. 10.1 fl (6.2-12.0); Monocyte# 0.93 X10^3/uL; Monocyte% 6.5 % (0-10); Neutrophil # 10.09 X10^3/uL (2.7-7.7); Neutrophil % 70.9 % (47-70); Platelet Count 304 K/mm3 (150-450); RBC Distribution Width CV 12.9 % (11.6-14.6); RBC Distribution Width SD 39.2 fl (35.1-43.9); Red Blood Count 4.28 M/mm3 (4.2-5.4); White Blood Count 14.3 K/mm3 (4.4-11.0)
[2019-05-08 23:43] LABS: POSITIVE COUNT NO; POSITIVE DIFFERENTIAL NO; POSITIVE MORPHOLOGY NO
[2019-05-08 23:57] LABS: ALB/GLOB Ratio 0.9 RATIO (0.9-2.4); AST(SGOT) 14 U/L (15-37); Alanine Aminotransfer ALT/SGPT 23 U/L (13-56); Albumin, Serum 3.2 g/dL (3.2-5.0); Alkaline Phosphatase 32 U/L (45-117); Anion Gap 7 (5-15); BUN 4 mg/dL (7-18); BUN/Creat Ratio 7.2 RATIO (10-20); Calcium,Total 8.6 mg/dL (8.5-10.1); Chloride 109 mmol/L (98-107); Creatinine, Serum 0.56 mg/dL (0.55-1.02); EST Glomerular Filtration Rate 146 mL/min (>60); Est Glom Filt Rate - Afr Amer 176 mL/min (>60); Estimated Creatinine Clearance 154.53 ml/min; Globulin 3.6 g/dL (2.2-4.2); Glucose 82 mg/dL (74-106); Lipase 126 U/L (73-393); Potassium 3.5 mmol/L (3.5-5.1); Protein, Total 6.8 g/dL (6.4-8.2); Sodium Level 139 mmol/L (136-145)
--- NOTE | 2019-05-09 00:07 | ED.DEP ---
ED Disposition - Plan for ED Patient: Instructions: ED Abdominal Pain Unkn Cause Referrals: Yovanny Navarro MD [Primary Care Provider] - Rosalba Matta MD [STAFF PHYSICIAN] -
[2019-05-09] MEDS: Electrolyte Solution/Peg's 4000 ML PO (00:23)
[2019-05-09 00:25] VITALS: RESP 18
== END 2019-05-09 00:26 | disposition home or self-care (01) ==
LOC: ED 23:05
PROVIDERS: Emergency Provider Emergency Medicine; Family Provider Family Medicine; PCP Family Medicine
DX: O99.612 Diseases of the digestive system complicating pregnancy, second trimester (principal); K59.09 Other constipation; Z3A.17 17 weeks gestation of pregnancy
CPT/HCPCS: 80053; 83690; 85025; 96361; 96374; 99284; J7030; J2405

== ENCOUNTER → 2019-07-13 12:12 | Outpatient (CLI) | payer MEDICAID, SELFPAY ==
[2019-07-13 11:17] VITALS: BMI 27.2
[2019-07-13 13:34] LABS: Absolute Lymphocyte Count 2.12 X10^3/uL (0.83-4.51); Absolute Neutrophil Count 10.5 X10^3/uL (2.0-7.7); Basophil# 0.04 X10^3/uL; Basophil% 0.3 % (0-1); Eosinophil# 0.18 X10^3/uL; Eosinophils% 1.3 % (0-5); Hematocrit 36.8 % (37-47); Hemoglobin 12.5 g/dL (12.0-15.0); Lymphocyte # 2.12 X10^3/ul (4.0); Lymphocyte % 15.5 % (19-41); Mean Corpuscular Hgb 32.3 pg (27.0-32.0); Mean Corpuscular Volume 95.1 fL (81-99); Mean Platelet Vol. 10.3 fl (6.2-12.0); Monocyte# 0.76 X10^3/uL; Monocyte% 5.5 % (0-10); NRBC Flagged by Analyzer 0 % (0-5); Neutrophil # 10.52 X10^3/uL (2.7-7.7); Neutrophil % 76.7 % (47-70); Platelet Count 274 K/mm3 (150-450); RBC Distribution Width CV 13.2 % (11.6-14.6); RBC Distribution Width SD 45.9 fl (35.1-43.9); Red Blood Count 3.87 M/mm3 (4.2-5.4); White Blood Count 13.7 K/mm3 (4.4-11.0)
[2019-07-13 14:00] LABS: Glucose Challenge Gest 1H 50g 99 mg/dL (70-140)
== END ==
PROVIDERS: Family Provider Family Medicine; PCP Family Medicine; Referring Provider Obstetrics & Gynecology; Visit Provider Obstetrics & Gynecology
DX: Z34.92 Encounter for supervision of normal pregnancy, unspecified, second trimester (principal)
CPT/HCPCS: 36415; 82950; 85025

== ENCOUNTER 2019-08-15 10:16 | Emergency (ER) | payer MEDICAID, SELFPAY ==
[2019-08-10 11:47] VITALS: BMI 28.3
[2019-08-15 10:17] VITALS: BP 135/75; PULSE 93; RESP 18; TEMP 37.2; O2SAT 98; BMI 30.1
--- NOTE | 2019-08-15 10:48 | EKG12_ITS ---
Test Reason : Blood Pressure : / mmHG Vent. Rate : 075 BPM Atrial Rate : 075 BPM P-R Int : 146 ms QRS Dur : 086 ms QT Int : 368 ms P-R-T Axes : 042 001 008 degrees QTc Int : 410 ms Normal sinus rhythm with sinus arrhythmia Low voltage QRS Borderline ECG Confirmed by MATTY ROCA, SOHA ([id number]), material expeditor KHALIDA MCCLURE ([id number]) on 08/16/2019 9:05:50 AM Referred By: SUSAN Confirmed By:SOHA STARR MD
--- NOTE | 2019-08-15 10:53 | ED.DCSUM_ITS ---
History of Present Illness <Gloria Medina - Last Filed: 08/15/19 15:52> Informant: Patient Onset: Today Context: Onset with activity Timing: Intermittent Quality: lightheaded Current Severity: Mild Maximum Severity: Mild Worsened by: standing Relieved by: sitting Narrative: Alma is a 19-year-old female who is 31 weeks regnant who complains of feeling lightheaded when standing with rapid heart rate that began this morning when she got up. She denies chest pain or shortness of breath or fever or chills or abdominal pain or cramping or vaginal bleeding or urinary symptoms. She states she had the symptoms about a week before her delivery of her last child. Upon delivery she gripes septic labs and there was a concern that she was becoming septic. She states her daughter was born septic with respiratory failure at 32 weeks. She denies leg pain or swelling or pleuritic chest pain. Her symptoms resolved with sitting. She denies reason for dehydration. She does admit to feeling increased nausea over the past week without abdominal pain or vomiting. She has chronic constipation. Prior similar symptoms: Yes Recent Illness/Hospitalization: No <Pascale Walters - Last Filed: 08/15/19 17:38> Chief Complaint: Nausea/Vomiting Past Medical History <Gloria Medina - Last Filed: 08/15/19 15:52> Prior records reviewed: Yes Surgical History: no surgical history Lives: With Family Smoking Status: Never smoker Alcohol: None Drugs: None <Pascale Walters - Last Filed: 08/15/19 17:38> - Allergies and Home Meds Allergies/Adverse Reactions: Allergies No Known Allergies Allergy (Verified 08/15/19 10:16) Primary Care Physician: Yovanny Navarro MD [Primary Care Provider] - Rosalba Matta MD [STAFF PHYSICIAN] - Review of Systems General: Denies: Chills, Fever Eyes: Denies: Visual changes - bilaterally, Blurred Vision - bilaterally ENT: Denies: Bilateral ear pain, Rhinorrhea Cardiovascular: Reports: Heart racing - When standing and lightheaded only. Denies: Chest pain, Palpitations Respiratory: Denies: Dyspnea, Cough, Sputum, Dyspnea on exertion Gastrointestinal: Reports: Nausea, Constipation. Denies: Abdominal pain, Vomiting, Diarrhea, Melena, Hematochezia Genitourinary: Denies: Dysuria, Hematuria, Frequency Musculoskeletal: Denies: Myalgias, Arthralgias, Neck pain, Back pain, Swelling, Extremity Pain Skin: Denies: Rash, Abscess Neurological: Denies: Headache, Weakness, Parasthesia <Pascale Walters - Last Filed: 08/15/19 17:38> Physical Exam Vital Signs/Narrative: Vital Signs Pulse Resp BP Pulse Ox 08/15/19 13:06 76 18 107/67 98 08/15/19 12:24 89 18 111/79 97 <Gloria Medina - Last Filed: 08/15/19 15:52> Vital Signs/Narrative: Vital Signs Temp Pulse Resp BP Pulse Ox 08/15/19 10:17 98.9 F 93 18 135/75 H 98 Inital Vital Signs reviewed: Yes General: Well nourished, Well developed Head: Normocephalic, Atraumatic Eyes: Perrl, EOMI. Negative for: Pale conjunctiva ENT: Moist mucous membranes, No rhinorrhea. Negative for: Dry mucous membranes, Nasal congestion, Sinus tenderness Neck: Supple, Nontender, No lymphadenopathy - No meningismus Cardiovascular: Regular rate, Regular rhythm, No murmurs. Negative for: Irregular, Tachycardia, Murmur Respiratory: No distress, CTA bilaterally, Chest nontender Abdomen: Soft, Nontender, -. Negative for: Rovsig's sign, Odell's sign Back: Nontender, Normal Inspection. Negative for: CVA tenderness, Spinal tenderness Extremities: Nontender, No edema. Negative for: Tenderness, Edema, Calf Tenderness Skin: Normal color, No rash. Negative for: Cyanosis, Diaphoresis, Jaundice Neurological: Alert, Oriented x3, Cranial nerves II-XII grossly intact. Negative for: Weakness Psychological: Normal affect, Normal Mood <Pascale Walters - Last Filed: 08/15/19 17:38> Diagnostic/Tx/Re-eval - Medical Decision Making I independently evaluated the patient. 19-year-old female who is 31 weeks presents with nausea and dizziness with standing. She denies chest pain, abdominal pain, or shortness of breath. Denies vaginal bleeding or fluid leakage. Denies fever or chills. Patient given IV fluids. Lab work is unremarkable. She will follow-up with [facility] [employer]. Advised to return to ED for worsening complaints. <Gloria Medina - Last Filed: 08/15/19 15:52> - EKG Initial EKG Interpretation: Sinus Rhythm, - - Normal sinus rhythm Ventricular rate 75 CA interval 146 QRS duration 86 QT/QTc 368/410 No acute STEMI or ectopy - Medical Decision Making Postural vital signs are within normal limits. She states she felt improved with fluids. Laboratory tests reveal a white count of 12.5 otherwise unremar kable. She had no sign of infection. She remained hemodynamically stable and nontoxic in appearance. heart rate was 135. I was able to reach Dr. Matta who feels patient does not warrant admission. She will follow up as an outpatient. Patient was instructed to follow-up by calling the office tomorrow. She was encouraged to drink more fluids. She has been more nauseated lately and her symptoms may be related to mild dehydration. She understands return for worsening symptoms such as fever or chills or chest pain , abdominal pain or sustained tachycardia. She was discharged in stable condition. <Pascale Walters - Last Filed: 08/15/19 17:38> ED Disposition <Gloira Medina - Last Filed: 08/15/19 15:52> <Pascale Walters - Last Filed: 08/15/19 17:38> - Plan for ED Patient: Disposition: Home or Assisted Living Diagnosis: Lightheaded, Referrals: Yovanny Navarro MD [Primary Care Provider] - Rosalba Matta MD [STAFF PHYSICIAN] - Additional Instructions: Drink more fluids
[2019-08-15 10:59] LABS: Bacteria 0 SEEN /hpf (None Seen); Mucous, Urine 0 SEEN /hpf (<or=2+); Red Blood Cells-Urine 0 SEEN /hpf (0-5); White Blood Cells 0 SEEN /hpf (0-5)
[2019-08-15 11:00] VITALS: BP 118/67; BP 127/77; BP 129/73; PULSE 100; PULSE 78; PULSE 92
[2019-08-15] MEDS: 0.9% Normal Saline 1,000 ML 1000 ML IV (11:00)
[2019-08-15 11:02] LABS: Color, Urine Yellow (Yellow); Glucose, Dipstick 100 mg/dl (Normal); Ketone-Dipstick Negative (Negative); Leukocyte Esterase-Dipstick 25 /ul (Negative); Nitrite-Dipstick Negative (Negative); Occult Blood-Urine Negative /ul (Negative); Protein-Dipstick Negative (Negative); Specific Gravity, Urine 1.005 (1.002-1.030); Urine Bilirubin Dipstick Negative (Negative); Urine Clarity Sl. Cloudy (Clear); Urine Urobilinogen Normal (Normal)
[2019-08-15 11:04] LABS: Absolute Lymphocyte Count 1.99 X10^3/uL (0.83-4.51); Absolute Neutrophil Count 9.2 X10^3/uL (2.0-7.7); Basophil# 0.03 X10^3/uL; Basophil% 0.2 % (0-1); Eosinophil# 0.23 X10^3/uL; Eosinophils% 1.8 % (0-5); Hematocrit 36.5 % (37-47); Hemoglobin 12.7 g/dL (12.0-15.0); Lymphocyte # 1.99 X10^3/ul (4.0); Mean Corp Hgb Conc 34.8 g/dL (32-36); Mean Corpuscular Hgb 32.9 pg (27.0-32.0); Mean Corpuscular Volume 94.6 fL (81-99); Mean Platelet Vol. 10.2 fl (6.2-12.0); Monocyte% 7.2 % (0-10); NRBC Flagged by Analyzer 0 % (0-5); Neutrophil # 9.22 X10^3/uL (2.7-7.7); Neutrophil % 74.2 % (47-70); Platelet Count 258 K/mm3 (150-450); RBC Distribution Width CV 12.5 % (11.6-14.6); RBC Distribution Width SD 43.2 fl (35.1-43.9); Red Blood Count 3.86 M/mm3 (4.2-5.4); White Blood Count 12.5 K/mm3 (4.4-11.0)
[2019-08-15 11:10] LABS: Squamous Epithelial Cells - UA 0-5 SEEN /hpf (5-10)
[2019-08-15 11:17] LABS: ALB/GLOB Ratio 0.7 RATIO (0.9-2.4); AST(SGOT) 11 U/L (15-37); Alanine Aminotransfer ALT/SGPT 14 U/L (13-56); Albumin, Serum 2.8 g/dL (3.2-5.0); Alkaline Phosphatase 78 U/L (45-117); Anion Gap 6 (5-15); BUN 6 mg/dL (7-18); BUN/Creat Ratio 11.2 RATIO (10-20); Calcium,Total 8.6 mg/dL (8.5-10.1); Chloride 109 mmol/L (98-107); Creatinine, Serum 0.54 mg/dL (0.55-1.02); EST Glomerular Filtration Rate 152 mL/min (>60); Est Glom Filt Rate - Afr Amer 184 mL/min (>60); Estimated Creatinine Clearance 160.26 ml/min; Globulin 3.8 g/dL (2.2-4.2); Glucose 99 mg/dL (74-106); Lipase 125 U/L (73-393); Potassium 3.6 mmol/L (3.5-5.1); Protein, Total 6.6 g/dL (6.4-8.2); Sodium Level 139 mmol/L (136-145)
[2019-08-15 12:24] VITALS: BP 111/79; PULSE 89; RESP 18; O2SAT 97
[2019-08-15 13:06] VITALS: BP 107/67; PULSE 76; RESP 18; O2SAT 98
== END 2019-08-15 13:07 | disposition home or self-care (01) ==
PROVIDERS: Emergency Provider Nurse Practitioner; Family Provider Family Medicine; PCP Family Medicine
DX: O26.893 Other specified pregnancy related conditions, third trimester (principal); R42 Dizziness and giddiness; Z3A.31 31 weeks gestation of pregnancy
CPT/HCPCS: 80053; 81001; 83690; 85025; 87086; 87088; 93005; 96360; 99285; J7030; A4216

== ENCOUNTER 2019-08-20 21:12 | Observation (INO) | payer MEDICAID, SELFPAY ==
[2019-08-20 20:02] VITALS: BMI 29.7
[2019-08-20 20:37] LABS: ROM Internal Control Test YES-OK TO RESULT pt. (Internal QC); ROM Patient Test Negative (Negative); Record Kit Lot#, ROM+ J8255
[2019-08-20] MEDS: Lactated Ringers 1,000 ML 999 ML IV (21:15)
[2019-08-20] MEDS: Betamethasone/Betamethasone 30 MG/5 ML Vial 12 MG IM (21:30)
[2019-08-20 21:33] LABS: Fetal Fibronectin Negative
[2019-08-20 21:34] LABS: Absolute Lymphocyte Count 2.74 X10^3/uL (0.83-4.51); Absolute Neutrophil Count 10.4 X10^3/uL (2.0-7.7); Basophil# 0.04 X10^3/uL; Basophil% 0.3 % (0-1); Eosinophil# 0.35 X10^3/uL; Eosinophils% 2.3 % (0-5); Hematocrit 36.9 % (37-47); Hemoglobin 12.7 g/dL (12.0-15.0); Lymphocyte # 2.74 X10^3/ul (4.0); Lymphocyte % 18.4 % (19-41); Mean Corp Hgb Conc 34.4 g/dL (32-36); Mean Corpuscular Hgb 32.7 pg (27.0-32.0); Mean Corpuscular Volume 95.1 fL (81-99); Mean Platelet Vol. 10.1 fl (6.2-12.0); Monocyte# 1.23 X10^3/uL; Monocyte% 8.3 % (0-10); NRBC Flagged by Analyzer 0 % (0-5); Neutrophil # 10.42 X10^3/uL (2.7-7.7); Neutrophil % 69.9 % (47-70); Platelet Count 243 K/mm3 (150-450); RBC Distribution Width CV 12.7 % (11.6-14.6); RBC Distribution Width SD 43.7 fl (35.1-43.9); Red Blood Count 3.88 M/mm3 (4.2-5.4); White Blood Count 14.9 K/mm3 (4.4-11.0)
[2019-08-20 21:42] LABS: Fibrinogen 410 mg/dl (203-444)
[2019-08-20] MEDS: NIFEdipine 10 MG Capsule 30 MG PO (22:02)
[2019-08-20] MEDS: Mag Hydrox/Al Hydrox/Simeth 30 ML UDC PO (22:02)
[2019-08-20 22:12] LABS: Bacteria 0 SEEN /hpf (None Seen); Mucous, Urine 0 SEEN /hpf (<or=2+); Red Blood Cells-Urine 0 SEEN /hpf (0-5); White Blood Cells 0 SEEN /hpf (0-5)
[2019-08-20 22:16] LABS: Color, Urine Yellow (Yellow); Glucose, Dipstick Normal (Normal); Ketone-Dipstick Negative (Negative); Leukocyte Esterase-Dipstick 25 /ul (Negative); Nitrite-Dipstick Negative (Negative); Occult Blood-Urine Negative /ul (Negative); Protein-Dipstick Negative (Negative); Urine Bilirubin Dipstick Negative (Negative); Urine Clarity Clear (Clear); Urine Urobilinogen Normal (Normal)
[2019-08-20] MEDS: Lactated Ringers 1,000 ML 15 ML IV (22:16)
--- NOTE | 2019-08-20 22:16 | PCM.HP.OB ---
- Problem List (1) Threatened labor Status: Acute Comment: 08/20- bmz and procardia, neg FFN but 3 cm dilated History Date of Admission: 08/20/19 Final ELIJAH: 10/08/19 Gestational age: 33 Weeks and 0 Days History of this : This is a 19 year-old, at 33 weeks gestational age presents s/p fall down the stairs, feels some aching but still has good fm, no vb or lof. she feels some contractions. se initially felt some leakage but none now. FFN and Rom plus is negative but she is 3 cm dilated with some regular ctx. Allergies No Known Allergies Allergy (Verified 08/20/19 20:28) Home Medications: Home Medications Pnv No.95/Ferrous Fum/Folic AC [ Formula] 1 ea PO DAILY 02/18/19 hydroxyprogesterone(PF)(preg preserv) 275 mg/1.1 mL subcut auto-inject 275 mg SC QWEEK #1.1 ml 04/28/19 Ondansetron [Ondansetron Odt] 4 mg PO Q8H PRN PRN 05/08/19 Smoking Status: Never smoker Alcohol: None Number of Fetus(es): 1 NST - FHR Rate Baby A Baseline: 140 Variability:: Moderate Accelerations:: 15 x 15 Decelerations:: None NST Reactive:: Yes FHR Category:: Category I Uterine Activity:: irregular History Past Pregnancies: Past Pregnancies 32 week delivery pprom 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 Labs: Mom's Microbiology 08/20/19 Unknown Genital vaginal Group B Streptococcus Culture - Pending Mom's Labs & Results 08/20/19 08/20/19 08/20/19 20:10 21:00 21:20 WBC 14.9 H RBC 3.88 L Hgb 12.7 Hct 36.9 L MCV 95.1 MCH 32.7 H MCHC 34.4 RDW Std Deviation 43.7 RDW Coeff of Semaj 12.7 Plt Count 243 MPV 10.1 Immature Gran % (Auto) 0.800 Neut % (Auto) 69.9 Lymph % (Auto) 18.4 L [place] % (Auto) 8.3 Eos % (Auto) 2.3 Baso % (Auto) 0.3 Absolute Neuts (auto) 10.4 H Absolute Lymphs (auto) 2.74 Nucleated RBC % 0 Fibrinogen Urine Color Urine Clarity Urine pH Ur Specific [place] Urine Protein Urine Glucose (UA) Urine Ketones Urine Occult Blood Urine Nitrite Urine Bilirubin Urine Urobilinogen Ur Leukocyte Esterase Urine RBC Urine WBC Ur Squamous Epith Cells Urine Bacteria Urine Mucus Vag Amniotic Fld Detect Negative Urine Opiates Screen Urine Methadone Screen Ur Barbiturates Screen Ur Phencyclidine Scrn Ur Amphetamines Screen U Methamphetamin-MDMA U Benzodiazepines Scrn Urine Cocaine Screen U Cannabinoids Screen Ur Drug Screen Comment Group B Strep DNA Fibronectin Negative Specimen Comment Blood Type Antibody Screen 08/20/19 08/20/19 08/20/19 21:20 21:20 21:27 WBC RBC Hgb Hct MCV MCH MCHC RDW Std Deviation RDW Coeff of Semaj Plt Count MPV Immature Gran % (Auto) Neut % (Auto) Lymph % (Auto) [place] % (Auto) Eos % (Auto) Baso % (Auto) Absolute Neuts (auto) Absolute Lymphs (auto) Nucleated RBC % Fibrinogen 410 Urine Color Urine Clarity Urine pH Ur Specific [place] Urine Protein Urine Glucose (UA) Urine Ketones Urine Occult Blood Urine Nitrite Urine Bilirubin Urine Urobilinogen Ur Leukocyte Esterase Urine RBC Urine WBC Ur Squamous Epith Cells Urine Bacteria Urine Mucus Vag Amniotic Fld Detect Urine Opiates Screen Urine Methadone Screen Ur Barbiturates Screen Ur Phencyclidine Scrn Ur Amphetamines Screen U Methamphetamin-MDMA U Benzodiazepines Scrn Urine Cocaine Screen U Cannabinoids Screen Ur Drug Screen Comment Group B Strep DNA Negative Fibronectin Specimen Comment Not Reportable Blood Type A POSITIVE Antibody Screen NEGATIVE 08/20/19 08/20/19 22:00 22:00 WBC RBC Hgb Hct MCV MCH MCHC RDW Std Deviation RDW Coeff of Semaj Plt Count MPV Immature Gran % (Auto) Neut % (Auto) Lymph % (Auto) [place] % (Auto) Eos % (Auto) Baso % (Auto) Absolute Neuts (auto) Absolute Lymphs (auto) Nucleated RBC % Fibrinogen Urine Color Yellow Urine Clarity Clear Urine pH 7.0 Ur Specific [place] 1.010 Urine Protein Negative Urine Glucose (UA) Normal Urine Ketones Negative Urine Occult Blood Negative Urine Nitrite Negative Urine Bilirubin Negative Urine Urobilinogen Normal Ur Leukocyte Esterase 25 H Urine RBC 0 SEEN Urine WBC 0 SEEN Ur Squamous Epith Cells 0-5 SEEN Urine Bacteria 0 SEEN Urine Mucus 0 SEEN Vag Amniotic Fld Detect Urine Opiates Screen NEGATIVE Urine Methadone Screen NEGATIVE Ur Barbiturates Screen NEGATIVE Ur Phencyclidine Scrn NEGATIVE Ur Amphetamines Screen NEGATIVE U Methamphetamin-MDMA NEGATIVE U Benzodiazepines Scrn NEGATIVE Urine Cocaine Screen NEGATIVE U Cannabinoids Screen NEGATIVE Ur Drug Screen Comment Group B Strep DNA Fibronectin Specimen Comment Blood Type Antibody Screen Course Did the patient receive Yes care? Labs Blood Type: A RH: POSITIVE RPR/VDRL/Syphilis Nonreactive Rubella status Immune HbSAg Negative Date Done: 02/22/19 Chlamydia Negative Gonorrhea Negative HIV/AIDS Non-Reactive Group B Strep: Collected on Admission Current Obstetrical History Gestational Diabetes No Incompetent Cervix No Infertility No IUGR No Macrosomia No Hypertension/Pre-eclampsia No Placenta Previa/Abruption No PTL/PROM Yes Uterine anomaly No Oligohydramnios No Polyhydramnios No Multiple gestation No Past Medical History Asthma No Diabetes No Hypertension No Heart disease No Mitral valve prolapse No Neurologic/Seizure disorder/ No Migraines Kidney disease No Liver disease No Varicosities No Clotting disorders/Hx of DVT No Thyroid Dysfunction No Other medical diseases No Psychiatric disorders No Major trauma No Abnormal PAP smear No Sleep apnea No Mammogram in the last 2 years No Social History Marital Status: Alleged father Dagoberto Hx Smoking No Smoking Status Never smoker Expected Delivery Method: Spontaneous Vaginal Review of Systems Constitutional: Denies: Fever, Malaise Eyes: Denies: Blurred vision, Vision Change HEENT: Denies: Head Aches, Visual Changes Cardiovascular: Denies: Chest Pain, Palpitations Respiratory: Denies: Cough, Shortness of Breath, Wheezing Gastrointestinal: Denies: Abdominal Pain, Diarrhea, Nausea, Vomiting Genitourinary: Denies: Dysuria, Hematuria Musculoskeletal: Reports: Back Pain, Muscle pain. Denies: Joint Pain Skin: Denies: Lesions, Rash Neurological: Denies: Blurred vision, Focal weakness, Headaches Psychiatric: Denies: Anxiety, Depression Endocrine: Denies: Heat/ Cold Intolerance Hematologic/ Lymphatic: Denies: Easy Bruising, Easy Bleeding Physical Exam General: Alert, Cooperative, No apparent distress HEENT: Atraumatic, Normocephalic. Negative for: Thyromegaly, Lymphadenopathy Cardiovascular: Regular rate Lungs: Normal air movement Abdomen: Soft, Non Tender, Gravid Neurological: Deep Tendon Reflexes 2+/4 and Symmetrical, Neuro grossly intact. 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 Negative for: Vulvar lesions Estimated gestational size: Appropriate for gestational size Presentation: Cephalic Cervix Dilation (cm): 3 Station: -2 Effacement (%): 70 Assessment/Plan All Active Problems (Last Reviewed 08/16/19 @ 13:19 by Loan Gandara) Threatened labor (Acute) History of depression, currently in third trimester (Acute) Segmental and somatic dysfunction of sacral region (Acute) Segmental and somatic dysfunction of lumbar region (Acute) Supervision of high-risk (Acute) History of anomaly in prior , currently (Acute) Flank pain (Acute) (Acute) History of labor (Resolved) Placenta previa (Resolved) This is a 19 year-old, , at 33 weeks gestational age presents with threatened PTL. STO for BMZ, procardia. cbc and fibrinogen WNL, check urine cultur eand tox screen. gbs sent. no abx prophylaxis unless cervical change. us tomorrow Multi Select Codes - Visit Charges Visit Charges: 08919 Init Hosp L3
[2019-08-20 22:27] LABS: Squamous Epithelial Cells - UA 0-5 SEEN /hpf (5-10)
[2019-08-20 22:30] LABS: Amphetamine Urine VISTA NEGATIVE (<1000 ng/mL); Barbiturate Urine VISTA NEGATIVE (< 200 ng/mL); Benzodiazepine Urine VISTA NEGATIVE (< 200 ng/mL); Cocaine Urine VISTA NEGATIVE (< 300 ng/mL); Ecstacy Urine VISTA NEGATIVE (< 500 ng/mL); Methadone Urine VISTA NEGATIVE (< 300 ng/mL); PCP Urine VISTA NEGATIVE (< 25 ng/mL); THC Urine VISTA NEGATIVE (< 50 ng/mL); Vista UDS pH Range 7
[2019-08-20 22:31] LABS: Group B Strep DNA By PCR Negative (Negative); Internal Control PASS; Probe Check PASS; Specimen Processing Control PASS
[2019-08-21] MEDS: NIFEdipine 10 MG Capsule PO ×2 (04:25→09:38)
[2019-08-21] MEDS: Acetaminophen 500 MG Tablet 1000 MG PO (04:25)
--- NOTE | 2019-08-21 07:00 | US_ITS ---
STUDY: SECOND AND THIRD TRIMESTER OBSTETRICAL ULTRASOUND REASON FOR EXAM: Female, 19 years old growth. Status post fall. Having contractions which have now resolved. LMP: January 01, 2019 TECHNIQUE: Transabdominal and Transvaginal TECHNICAL QUALITY: Adequate. PRIOR ULTRASOUND: February 18, 2019. FINDINGS: There is a single intrauterine fetus. The fetus is in a cephalic presentation. There is demonstrated cardiac activity with a heart rate of 140 bpm. There is a normal amniotic fluid volume. The largest amniotic fluid pocket measures 5.05 cm. The amniotic fluid index (LINDSEY) is 12.73 cm. The placenta is anterior in location and is not low lying. There are Grade 0 placental changes. The cervix measures 1.7 cm in length and is closed. The adnexal regions are not visualized. BIOMETRY: BPD: 8.4 cm: 33 weeks, 6 days HC: 30.68 cm: 34 weeks, 2 days AC: 31 cm: 35 weeks, 0 days FL: 6.57 cm: 33 weeks, 6 days CI: 82 FL/BPD: 78 FL/HC: FL/AC: 21 HC/AC: 0.99 age by current US: 34 weeks, 2 days. ELIJAH by current US: September 30, 2019. Estimated weight: 2433 grams, +/- 355 grams, 96 %. age by prior US: 32 weeks, 0 days. ELIJAH by prior US: October 12, 2019. Age by LMP: 32 weeks, 4 days. ELIJAH by LMP: October 08, 2019.. IMPRESSION: 1. Live single intrauterine of 34 weeks, 2 days. ELIJAH is September 30, 2019. This is almost 2 weeks ahead of expected gestational age by initial ultrasound. 2. EFW of 2433 g. 3. LINDSEY of 12.73 cm. 4. Anterior, grade 0 placenta. 5. Vertex presentation. Electronically Signed: Chase Quach DO at 8:57 EDT Tel [phone], Service support , STUDY: SECOND AND THIRD TRIMESTER OBSTETRICAL ULTRASOUND REASON FOR EXAM: Female, 19 years old growth. Status post fall. Having contractions which have now resolved. LMP: January 01, 2019 TECHNIQUE: Transabdominal and Transvaginal TECHNICAL QUALITY: Adequate. PRIOR ULTRASOUND: February 18, 2019. FINDINGS: There is a single intrauterine fetus. The fetus is in a cephalic presentation. There is demonstrated cardiac activity with a heart rate of 140 bpm. There is a normal amniotic fluid volume. The largest amniotic fluid pocket measures 5.05 cm. The amniotic fluid index (LINDSEY) is 12.73 cm. The placenta is anterior in location and is not low lying. There are Grade 0 placental changes. The cervix measures 1.7 cm in length and is closed. The adnexal regions are not visualized. BIOMETRY: BPD: 8.4 cm: 33 weeks, 6 days HC: 30.68 cm: 34 weeks, 2 days AC: 31 cm: 35 weeks, 0 days FL: 6.57 cm: 33 weeks, 6 days CI: 82 FL/BPD: 78 FL/HC: FL/AC: 21 HC/AC: 0.99 age by current US: 34 weeks, 2 days. ELIJAH by current US: September 30, 2019. Estimated weight: 2433 grams, +/- 355 grams, 96 %. age by prior US: 32 weeks, 0 days. ELIJAH by prior US: October 12, 2019. Age by LMP: 32 weeks, 4 days. ELIJAH by LMP: October 08, 2019.. US/OB Limited With Biometrics IMPRESSION: 1. Live single intrauterine of 34 weeks, 2 days. ELIJAH is September 30, 2019. This is almost 2 weeks ahead of expected gestational age by initial ultrasound. 2. EFW of 2433 g. 3. LINDSEY of 12.73 cm. 4. Anterior, grade 0 placenta. 5. Vertex presentation. Electronically Signed: Chase Quach DO at 8:58 EDT Tel [phone], Service support ,
--- NOTE | 2019-08-21 09:31 | PCM.PN.OB ---
Patient Problems: Active and Suspected Problems (Last Reviewed 08/16/19 @ 13:19 by Loan Gandara) Threatened labor (Acute) 08/20- bmz and procardia, neg FFN but 3 cm dilated Subjective: minimal contractions no vb lof good fm some soreness. - Physical Exam General: Alert, Oriented x3 Lungs: Normal air movement Cardiovascular: Regular rate Abdomen: Soft, Non Tender Weight: 190 lb 2 oz Body Mass Index (BMI) 29.7 Intake and Output for Last 24 Hours 08/19/19 08/20/19 08/21/19 23:59 23:59 23:59 Intake Total 1000 / 1000 140.75 / 140.75 Balance 1000 / 1000 140.75 / 140.75 Laboratory Tests Past 24 Hrs 08/20/19 08/20/19 08/20/19 20:10 21:00 21:20 WBC 14.9 H RBC 3.88 L Hgb 12.7 Hct 36.9 L MCV 95.1 MCH 32.7 H MCHC 34.4 RDW Std Deviation 43.7 RDW Coeff of Semaj 12.7 Plt Count 243 MPV 10.1 Immature Gran % (Auto) 0.800 Neut % (Auto) 69.9 Lymph % (Auto) 18.4 L [place] % (Auto) 8.3 Eos % (Auto) 2.3 Baso % (Auto) 0.3 Absolute Neuts (auto) 10.4 H Absolute Lymphs (auto) 2.74 Nucleated RBC % 0 Fibrinogen Urine Color Urine Clarity Urine pH Ur Specific [place] Urine Protein Urine Glucose (UA) Urine Ketones Urine Occult Blood Urine Nitrite Urine Bilirubin Urine Urobilinogen Ur Leukocyte Esterase Urine RBC Urine WBC Ur Squamous Epith Cells Urine Bacteria Urine Mucus Vag Amniotic Fld Detect Negative Urine Opiates Screen Urine Methadone Screen Ur Barbiturates Screen Ur Phencyclidine Scrn Ur Amphetamines Screen U Methamphetamin-MDMA U Benzodiazepines Scrn Urine Cocaine Screen U Cannabinoids Screen Ur Drug Screen Comment Group B Strep DNA Fibronectin Negative Specimen Comment Blood Type Antibody Screen 08/20/19 08/20/19 08/20/19 21:20 21:20 21:27 WBC RBC Hgb Hct MCV MCH MCHC RDW Std Deviation RDW Coeff of Semaj Plt Count MPV Immature Gran % (Auto) Neut % (Auto) Lymph % (Auto) [place] % (Auto) Eos % (Auto) Baso % (Auto) Absolute Neuts (auto) Absolute Lymphs (auto) Nucleated RBC % Fibrinogen 410 Urine Color Urine Clarity Urine pH Ur Specific [place] Urine Protein Urine Glucose (UA) Urine Ketones Urine Occult Blood Urine Nitrite Urine Bilirubin Urine Urobilinogen Ur Leukocyte Esterase Urine RBC Urine WBC Ur Squamous Epith Cells Urine Bacteria Urine Mucus Vag Amniotic Fld Detect Urine Opiates Screen Urine Methadone Screen Ur Barbiturates Screen Ur Phencyclidine Scrn Ur Amphetamines Screen U Methamphetamin-MDMA U Benzodiazepines Scrn Urine Cocaine Screen U Cannabinoids Screen Ur Drug Screen Comment Group B Strep DNA Negative Fibronectin Specimen Comment Not Reportable Blood Type A POSITIVE Antibody Screen NEGATIVE 08/20/19 08/20/19 22:00 22:00 WBC RBC Hgb Hct MCV MCH MCHC RDW Std Deviation RDW Coeff of Semaj Plt Count MPV Immature Gran % (Auto) Neut % (Auto) Lymph % (Auto) [place] % (Auto) Eos % (Auto) Baso % (Auto) Absolute Neuts (auto) Absolute Lymphs (auto) Nucleated RBC % Fibrinogen Urine Color Yellow Urine Clarity Clear Urine pH 7.0 Ur Specific [place] 1.010 Urine Protein Negative Urine Glucose (UA) Normal Urine Ketones Negative Urine Occult Blood Negative Urine Nitrite Negative Urine Bilirubin Negative Urine Urobilinogen Normal Ur Leukocyte Esterase 25 H Urine RBC 0 SEEN Urine WBC 0 SEEN Ur Squamous Epith Cells 0-5 SEEN Urine Bacteria 0 SEEN Urine Mucus 0 SEEN Vag Amniotic Fld Detect Urine Opiates Screen NEGATIVE Urine Methadone Screen NEGATIVE Ur Barbiturates Screen NEGATIVE Ur Phencyclidine Scrn NEGATIVE Ur Amphetamines Screen NEGATIVE U Methamphetamin-MDMA NEGATIVE U Benzodiazepines Scrn NEGATIVE Urine Cocaine Screen NEGATIVE U Cannabinoids Screen NEGATIVE Ur Drug Screen Comment Group B Strep DNA Fibronectin Specimen Comment Blood Type Antibody Screen Medical Necessity - Tobacco Use Smoking Status: Never smoker Assessment/Plan All Active Problems (Last Reviewed 08/16/19 @ 13:19 by Loan Gandara) Threatened labor (Acute) History of depression, currently in third trimester (Acute) Segmental and somatic dysfunction of sacral region (Acute) Segmental and somatic dysfunction of lumbar region (Acute) Supervision of high-risk (Acute) History of anomaly in prior , currently (Acute) Flank pain (Acute) (Acute) History of labor (Resolved) Placenta previa (Resolved) This is a 19 year-old, , at 33 weeks gestational age presents with threatened PTL. STO for BMZ, procardia. cbc and fibrinogen WNL, check urine culture and neg tox screen. gbs sent. no abx prophylaxis unless cervical change. us nl measuring ahead. no cervical change- plan procardia x 48 hrs and fu for repeat bmz tonight. labor precautions Multi Select Codes - Visit Charges Observation E&M Codin Initial observation care L3, 60291 Subsequent observation care L3 - cancel init hosp charge
--- NOTE | 2019-08-21 09:37 | DCINST_ITS ---
Discharge Diet: No Restrictions Discharge Activity: Return to Normal Activity, May not drive while taking narcotic pain medications., May Shower May resume sexual activity in: 4-6 weeks Call your doctor if your incision/area has: Continuous Slow Oozing, Sudden Increased Bleeding, Increased Pain/ Swelling, Increased Redness, Foul Smelling Discharge Additional Instructions: If you experience any of the following, contact your healthcare provider. * Bleeding that soaks a pad every hour for 2 hours * Fever 100.4 or higher * Unrelieved incision or abdominal pain * Swelling, redness, discharge or bleeding from your incision or episiotomy site * Your incision begins to separate * Problems urinating (including inability to urinate or burning while urinating). * Visual changes * Severe headache * Flu-like symptoms * Pain or redness in one of both of your breasts * Pain, warmth, tenderness or swelling in your legs, especially the calf area * Frequent nausea and vomiting * Symptoms of depression or anxiety If you experience any of the following, call 911 or go to the nearest Emergency Room. * Chest pain * Problems breathing * Seizure activity * Partial or complete paralysis of a body part, slurred speech, weakness or drooping of the face, or a sudden inability to walk or hold your balance Allergies/Adverse Reactions: Allergies No Known Allergies Allergy (Verified 08/20/19 20:28) Medications to take at Discharge Pnv No.95/Ferrous Fum/Folic AC [ Formula] 1 ea PO DAILY 02/18/19 hydroxyprogesterone(PF)(preg preserv) 275 mg/1.1 mL subcut auto-inject 275 mg SC QWEEK #1.1 ml 04/28/19 Ondansetron [Ondansetron Odt] 4 mg PO Q8H PRN PRN 05/08/19 Please Follow Up With: Rosalba Matta MD - [phone] When: Call to make an appointment with your doctor in 6 weeks. If you had elevated Blood pressure or 4th degree laceration you will need to be seen in 2 weeks. Primary Care Physician: Yovanny Navarro MD [Primary Care Provider] - Test Results: Test results from this visit will be discussed in further detail at your follow- up appointment, if applicable.
--- NOTE | 2019-08-21 09:50 | DCINST_ITS ---
- Discharge Diagnoses Current Active Problems: Current Active and Chronic Problems (Last Reviewed 08/16/19 @ 13:19 by Loan Gandara) Threatened labor (Acute) 08/20- bmz and procardia, neg FFN but 3 cm dilated You will use the following diet at home:: No restrictions, Regular Discharge Activity: Return to Normal Activity, May Shower May resume sexual activity in: 10-14 days Call your doctor if your incision/area has: Increased Pain/ Swelling, Increased Redness, Foul Smelling Discharge Call your doctor if you observe: Fever of 101 or Higher Allergies/Adverse Reactions: Allergies No Known Allergies Allergy (Verified 08/20/19 20:28) Medications to take at Discharge Pnv No.95/Ferrous Fum/Folic AC [ Formula] 1 ea PO DAILY 02/18/19 hydroxyprogesterone(PF)(preg preserv) 275 mg/1.1 mL subcut auto-inject 275 mg SC QWEEK #1.1 ml 04/28/19 Ondansetron [Ondansetron Odt] 4 mg PO Q8H PRN PRN 05/08/19 Nifedipine [Procardia] 10 mg PO Q4H 2 Days #10 cap 08/21/19 The following prescriptions were given: Nifedipine [Procardia] 10 mg PO Q4H 2 Days #10 cap Transmission Status: Pending to [id number] Primary Care Physician: Yovanny Navarro MD [Primary Care Provider] - Test Results: Test results from this visit will be discussed in further detail at your follow- up appointment, if applicable. Please Follow Up With: Rosalba Matta MD - [phone]
--- NOTE | 2019-08-21 09:55 | NURSING ---
0945- patient ambulated off unit in stable condition with . reports having follow up with Dr Matta in office on friday. To return tonight at 2100 for second celestone injection. pt reports understanding of labor teaching and reports knowing s/s of PTL d/t previous delivery.
== END 2019-08-21 09:45 | disposition home or self-care (01) ==
LOC: WPOUT 21:14 → WP 08-23 07:07
PROVIDERS: Admitting Provider Obstetrics & Gynecology; Family Provider Family Medicine; PCP Family Medicine; Visit Provider Obstetrics & Gynecology
DX: O60.03 Preterm labor without delivery, third trimester (principal); Z3A.33 33 weeks gestation of pregnancy; O60.00 Preterm labor without delivery, unspecified trimester; Z3A.00 Weeks of gestation of pregnancy not specified; O26.93 Pregnancy related conditions, unspecified, third trimester; Z91.81 History of falling
CPT/HCPCS: 96360; 36415; 59025; 59050; 76816; 76817; 80307; 81001; 82731; 84112; 85025; 85384; 86850; 86900; 86901; 87081; 87653; 96372; 99218; J7120; G0378; J0702

== ENCOUNTER 2019-08-21 21:05 | Outpatient (CLI) | payer MEDICAID, SELFPAY ==
[2019-08-20 20:02] VITALS: BMI 29.7
[2019-08-21 21:19] VITALS: BMI 30.2
[2019-08-21] MEDS: Betamethasone/Betamethasone 30 MG/5 ML Vial 12 MG IM (21:34)
--- NOTE | 2019-08-22 09:05 | OB.TRI.PN ---
Progress Notes Date of Service: 08/21/19 Progress Note: celestone shot 2 for prematurity threatened labo Multi Select Codes - Urinary/Genital Urinary/Genital CPT Codes: Other Procedure See Report - no charge
== END 2019-08-21 21:38 | disposition home or self-care (01) ==
LOC: WP 21:17 → WPOUT 21:56 → WP 21:56
PROVIDERS: Family Provider Family Medicine; PCP Family Medicine; Referring Provider Obstetrics & Gynecology; Visit Provider Obstetrics & Gynecology
DX: O60.00 Preterm labor without delivery, unspecified trimester (principal); Z3A.00 Weeks of gestation of pregnancy not specified
CPT/HCPCS: 96372; 99218; G0378; J0702

== ENCOUNTER 2019-08-23 15:15 | Outpatient (CLI) | payer MEDICAID, SELFPAY ==
[2019-08-23 15:51] VITALS: BMI 29.8
--- NOTE | 2019-08-23 18:45 | OB.TRI.PN_ITS ---
Progress Notes Date of Service: 08/23/19 Progress Note: Patient presents for triage evaluation secondary to labor contractions FHT: 130 Moderate variability reactive no decelerations category I tracing [place]: Irregular contractions Assessment and plan: Threatened labor reactive NST, reassuring maternal and status patient discharged to home to follow-up as scheduled. See problem list details for additional plan information. Multi Select Codes - Urinary/Genital Urinary/Genital CPT Codes: 44898-42 non-stress test Interp
== END 2019-08-23 16:25 | disposition home or self-care (01) ==
LOC: WPOUT 15:46 → WP 08-24 11:26
PROVIDERS: Family Provider Family Medicine; PCP Family Medicine; Referring Provider Obstetrics & Gynecology; Visit Provider Obstetrics & Gynecology
DX: O60.00 Preterm labor without delivery, unspecified trimester (principal); Z3A.00 Weeks of gestation of pregnancy not specified
CPT/HCPCS: 59025; 99218; G0378

== ENCOUNTER 2019-08-25 10:35 | Outpatient (CLI) | payer MEDICAID, SELFPAY ==
[2019-08-25 10:55] VITALS: BMI 29.7
[2019-08-25] MEDS: Acetaminophen 500 MG Tablet 1000 MG PO (11:39)
--- NOTE | 2019-08-25 22:12 | OB.TRI.PN ---
Progress Notes Date of Service: 08/25/19 Progress Note: Patient presents for triage evaluation secondary to labor FHT: 130 moderate variability reactive no decelerations category I tracing [place]: Irritability contractions Assessment and plan: Threatened labor reactive NST, reassuring maternal and status patient discharged to home to follow-up as scheduled. No cervical change.. See problem list details for additional plan information. - Problem List (1) Threatened labor Status: Acute Comment: 08/20- bmz and procardia, neg FFN but 3 cm dilated. reevaluated 08/25 no cervical change Multi Select Codes - Urinary/Genital Urinary/Genital CPT Codes: 20723-37 non-stress test Interp
== END 2019-08-25 13:55 | disposition home or self-care (01) ==
PROVIDERS: Family Provider Family Medicine; PCP Family Medicine; Referring Provider Obstetrics & Gynecology; Visit Provider Obstetrics & Gynecology
DX: O60.00 Preterm labor without delivery, unspecified trimester (principal); Z3A.00 Weeks of gestation of pregnancy not specified
CPT/HCPCS: 59025; 59050; 99218; G0378

== ENCOUNTER 2019-09-08 18:35 | Inpatient (IN) | payer MEDICAID, SELFPAY ==
[2019-09-02 13:30] VITALS: BMI 29.7
[2019-09-08 16:20] LABS: Bacteria 0 SEEN /hpf (None Seen); Mucous, Urine 0 SEEN /hpf (<or=2+); Red Blood Cells-Urine 0 SEEN /hpf (0-5)
[2019-09-08 16:23] LABS: Color, Urine Yellow (Yellow); Glucose, Dipstick 250 mg/dl (Normal); Ketone-Dipstick Negative (Negative); Leukocyte Esterase-Dipstick 25 /ul (Negative); Nitrite-Dipstick Negative (Negative); Occult Blood-Urine Negative /ul (Negative); Protein-Dipstick 15 mg/dl (Negative); Urine Bilirubin Dipstick Negative (Negative); Urine Clarity Clear (Clear); Urine Urobilinogen 1 mg/dl (Normal)
[2019-09-08 16:25] VITALS: BMI 29.2
[2019-09-08 16:47] LABS: Amorphous Sediment 1+; Squamous Epithelial Cells - UA 0-5 SEEN /hpf (5-10); White Blood Cells 0-5 SEEN /hpf (0-5)
[2019-09-08] MEDS: Lactated Ringers 1,000 ML 50 ML IV (18:30)
[2019-09-08] MEDS: Lactated Ringers 500 ML 999 ML IV (18:35)
--- NOTE | 2019-09-08 19:11 | HP.PCM_ITS ---
History Date of Admission: 08/20/19 Final ELIJAH: 10/15/19 Final ELIJAH Source: US <20 weeks Gestational age: 34 Weeks and 5 Days History of this : This is a 19 year-old, G2 P 1 at 34 5/7 wk EGA presents with CC of painful UCs. Hx of 32 wk delivery prior at [facility]. Has been on weekly progesterone injections. Admitted at 33 wk EGA s/p fall down stairs and with contractions then 3 cm dilated. Given steroids 08/20/19 weeks gestational age. POB history: 1.) at 32 wks 4# 7 oz female -- SPPROM, delivery anomalies, developmental delay, CP and laryngomalacia. 2.) Current Social: non smoker, no drugs, no alcohol Surgical history: No surgeries PMH: denies asthma, DM, HTN, Heart disease Negative. 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 Family History: non contributory, negative. NKDA MEDS: PNV daily Weekly progesterone injections starting at 16 1/2 wk. Citalopram 20 mg po daily Betamethazone given 08/20/19 care established at 10 wk EGA. LABS: A positive Rubella immune, RPR neg, HepGSAg neg GC and chlamydia negative. HIV neg GBS negative. History of depression Low back pain Placenta previa Allergies No Known Allergies Allergy (Verified 09/02/19 13:23) Home Medications: Home Medications Pnv No.95/Ferrous Fum/Folic AC [ Formula] 1 ea PO DAILY 02/18/19 hydroxyprogesterone(PF)(preg preserv) 275 mg/1.1 mL subcut auto-inject 275 mg SUBCUT QWEEK #1.1 ml 09/03/19 Citalopram [Celexa] 20 mg PO DAILY 09/08/19 Smoking Status: Never smoker Alcohol: None Number of Fetus(es): 1 History Past Pregnancies: Past Pregnancies Delivery Date Name GA/Weeks Outcome Route Weight Gender Labor Length Anesthesia Delivery Location Provider FOB Expected Infant Delivery Method: Spontaneous Vaginal Review of Systems Constitutional: Denies: Anorexia Eyes: Denies: Blurred vision HEENT: Denies: Difficulty Hearing Cardiovascular: Denies: Chest Pain Respiratory: Denies: Cough Gastrointestinal: Reports: - - feeling contractions, a little stronger than at first Genitourinary: Denies: Dysuria Neurological: Denies: Balance problems Psychiatric: Reports: Depression - hx of pp depression. Now on Celexa 20 mg po daily Comment: +UCs. +FM Neg Vaginal bleeding. 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 Estimated gestational size: Appropriate for gestational size Cervix Dilation (cm): 5 Station: -2 Effacement (%): 80 - BBOW Assessment/Plan All Active Problems (Last Reviewed 09/02/19 @ 13:23 by Anitha Polanco) Influenza vaccine administered (Acute) Threatened labor (Acute) History of depression, currently in third trimester (Acute) Segmental and somatic dysfunction of sacral region (Acute) Segmental and somatic dysfunction of lumbar region (Acute) Supervision of high-risk (Acute) History of anomaly in prior , currently (Acute) Flank pain (Acute) (Acute) History of labor (Resolved) Placenta previa (Resolved) This is a 19 year-old, G 2P1 female at 34 5/7 wk EGA presents with UCs and change of cervix from 4/-2 to 5/80/-2 labor Hx of 32 wk delivery prior Has been on weekly progesterone injections from 16 wk to present. IBOW at present , BBOW IV fluid bolus and maintenance rate Rescue dose betamethasone 12 mg IM times one Repeat GBS GSB neg 08/20/19 Consider ABX if SROM Expectant management. Plans no epidural [place] [employer] Drawer aware.
[2019-09-08 19:24] LABS: Absolute Lymphocyte Count 2.56 X10^3/uL (0.83-4.51); Absolute Neutrophil Count 9.2 X10^3/uL (2.0-7.7); Basophil# 0.03 X10^3/uL; Basophil% 0.2 % (0-1); Eosinophil# 0.19 X10^3/uL; Eosinophils% 1.5 % (0-5); Hematocrit 37.5 % (37-47); Hemoglobin 12.9 g/dL (12.0-15.0); Lymphocyte # 2.56 X10^3/ul (4.0); Mean Corp Hgb Conc 34.4 g/dL (32-36); Mean Corpuscular Hgb 32.3 pg (27.0-32.0); Mean Corpuscular Volume 93.8 fL (81-99); Mean Platelet Vol. 10.3 fl (6.2-12.0); Monocyte# 0.81 X10^3/uL; Monocyte% 6.3 % (0-10); NRBC Flagged by Analyzer 0 % (0-5); Neutrophil # 9.18 X10^3/uL (2.7-7.7); Neutrophil % 71.5 % (47-70); Platelet Count 236 K/mm3 (150-450); RBC Distribution Width SD 44.2 fl (35.1-43.9); White Blood Count 12.8 K/mm3 (4.4-11.0)
--- NOTE | 2019-09-08 19:58 | PCM.PN.BLA ---
Progress Note LABOR PROGRESS NOTE More uncomfortable. Nauseated. Requesting nitrous. Father wants to catch the baby. AVSS CX 7-8 / 90/-2 EFM 120s avg variability Accels. 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 Advised pt and family of this plan. Offered AROM given progress, considering this.
[2019-09-08] MEDS: Betamethasone/Betamethasone 30 MG/5 ML Vial 12 MG IM (20:11)
[2019-09-08] MEDS: Oxytocin 30 units/NS 500 ml 30 UNITS/500 ML IV.SOLN 334 UNITS IV (20:32)
--- NOTE | 2019-09-08 20:38 | PCM.OPRPT ---
Vaginal Delivery Maternal Presentation: Active Labor 34 5/7 wk labor Amniotic Membrane Rupture Type: Artificial Rupture of Membrane time: 2008 Amniotic Fluid Description: Clear Final ELIJAH: 10/15/19 Final ELIJAH Source: US <20 weeks Gestational age: 34 Weeks and 5 Days [place] doctor who attended delivery (if requested by OB): Tisha Bishop Date of Procedure: 09/08/19 Pre-Operative Diagnosis: 34 5/7 wk labor. labor Post-Operative Diagnosis: same Surgery/ Procedure Performed: Spontaneous Vaginal Delivery Type of Anesthesia: None Description of Procedure: of a soni viable female over intact perineum. Head delivered CHRISTIE. Shoulders delivered easily. FOB helping to catch. OP and nares bulb suctioned after delivery of shoulders. Cord clamped times two and cut, and to Dr Bishop present with RT and nursing staff for delivery. Routine ABG collected PP exam; no lacerations noted Placenta delivered by spont expulsion thick 3 V cord, intact appearing with trailing membranes EBL 200 cc Pt and tolerated delivery well. To recovery, stable condition. Baby likely to SCN 2/2 prematurity. Presentation: Vertex, CHRISTIE Placental Delivery Description: Spontaneous, Expressed Placenta Disposition: [facility] Cord Vessel Description: 3 Vessels Cord Gases drawn per routine: ABG Cord Entanglement: None Estimated Blood Loss: 200 Infant A gender: Female - baby to SCN. Episiotomy Description: None Laceration: None Medications given after delivery: IV Pitocin Complications: None
--- NOTE | 2019-09-08 20:49 | DCINST_ITS ---
Discharge Diet: No Restrictions Discharge Activity: May Shower, May Take a Tub Bath May resume sexual activity in: 4-6 weeks Additional Activity Instructions:: Nothing in the vagina for 4-6 weeks. You may return to work/school in 6 weeks. Additional Instructions: If you experience any of the following, contact your healthcare provider. * Bleeding that soaks a pad every hour for 2 hours * Fever 100.4 or higher * Unrelieved abdominal pain * Problems urinating (including inability to urinate or burning while urinating). * Visual changes * Severe headache * Flu-like symptoms * Pain or redness in one of both of your breasts * Pain, warmth, tenderness or swelling in your legs, especially the calf area * Frequent nausea and vomiting * Symptoms of depression or anxiety If you experience any of the following, call 911 or go to the nearest Emergency Room. * Chest pain * Problems breathing * Seizure activity * Partial or complete paralysis of a body part, slurred speech, weakness or drooping of the face, or a sudden inability to walk or hold your balance Allergies/Adverse Reactions: Allergies No Known Allergies Allergy (Verified 09/02/19 13:23) Medications to take at Discharge Pnv No.95/Ferrous Fum/Folic AC [ Formula] 1 ea PO DAILY 02/18/19 hydroxyprogesterone(PF)(preg preserv) 275 mg/1.1 mL subcut auto-inject 275 mg SUBCUT QWEEK #1.1 ml 09/03/19 Citalopram [Celexa] 20 mg PO DAILY 09/08/19 Please Follow Up With: Rosalba Matta MD When: Call to make an appointment with your doctor in 6 weeks. Primary Care Physician: Yovanny Navarro MD [Primary Care Provider] - Test Results: Test results from this visit will be discussed in further detail at your follow- up appointment, if applicable. Proposed Discharge Date: 09/10/19
[2019-09-08] MEDS: Ibuprofen 600 MG Tablet PO (21:18)
[2019-09-08 21:26] LABS: Group B Strep DNA By PCR Negative (Negative); Internal Control PASS; Probe Check PASS; Specimen Processing Control PASS
[2019-09-09 00:18] VITALS: BP 121/70; PULSE 68; RESP 16; TEMP 36.4
[2019-09-09] MEDS: 0.9% Saline Lock 10 ML Syringe IV (00:20)
[2019-09-09 03:07] VITALS: BP 120/64; PULSE 64; RESP 18; TEMP 36.2
--- NOTE | 2019-09-09 06:35 | PN.OBGYN_ITS ---
Subjective: PPD#1 34 5/7 wk delivery Doing well Minimal cramping and using Tylenol for this. Baby is in SCN, 6# 10 oz weight - Physical Exam General: Alert, Oriented x3, Cooperative, No apparent distress HEENT: Atraumatic, EOMI Neck: Supple Abdomen: Soft - fundus firm NT at umbilicus Psych/Mental Status: Normal Affect Vital Signs Temp Pulse Resp BP 97.1 F L 64 18 120/64 09/09/19 03:07 09/09/19 03:07 09/09/19 03:07 09/09/19 03:07 Weight: 84.822 kg Body Mass Index (BMI) 29.2 Intake and Output for Last 24 Hours 09/07/19 09/08/19 09/09/19 23:59 23:59 23:59 Intake Total 1310.84 / 1310.84 1100 / 1100 Output Total 650 / 650 Balance 1310.84 / 1310.84 450 / 450 Laboratory Tests Past 24 Hrs 09/08/19 09/08/19 09/08/19 16:00 18:30 18:30 WBC 12.8 H RBC 4.00 L Hgb 12.9 Hct 37.5 MCV 93.8 MCH 32.3 H MCHC 34.4 RDW Std Deviation 44.2 H RDW Coeff of Semaj 13.0 Plt Count 236 MPV 10.3 Immature Gran % (Auto) 0.500 Neut % (Auto) 71.5 H Lymph % (Auto) 20.0 [place] % (Auto) 6.3 Eos % (Auto) 1.5 Baso % (Auto) 0.2 Absolute Neuts (auto) 9.2 H Absolute Lymphs (auto) 2.56 Nucleated RBC % 0 Urine Color Yellow Urine Clarity Clear Urine pH 7.0 Ur Specific [place] 1.010 Urine Protein 15 H Urine Glucose (UA) 250 H Urine Ketones Negative Urine Occult Blood Negative Urine Nitrite Negative Urine Bilirubin Negative Urine Urobilinogen 1 H Ur Leukocyte Esterase 25 H Urine RBC 0 SEEN Urine WBC 0-5 SEEN Ur Squamous Epith Cells 0-5 SEEN Amorphous Sediment 1+ Urine Bacteria 0 SEEN Urine Mucus 0 SEEN Group B Strep DNA Specimen Comment Blood Type A POSITIVE Antibody Screen NEGATIVE 09/08/19 19:00 WBC RBC Hgb Hct MCV MCH MCHC RDW Std Deviation RDW Coeff of Semaj Plt Count MPV Immature Gran % (Auto) Neut % (Auto) Lymph % (Auto) [place] % (Auto) Eos % (Auto) Baso % (Auto) Absolute Neuts (auto) Absolute Lymphs (auto) Nucleated RBC % Urine Color Urine Clarity Urine pH Ur Specific [place] Urine Protein Urine Glucose (UA) Urine Ketones Urine Occult Blood Urine Nitrite Urine Bilirubin Urine Urobilinogen Ur Leukocyte Esterase Urine RBC Urine WBC Ur Squamous Epith Cells Amorphous Sediment Urine Bacteria Urine Mucus Group B Strep DNA Negative Specimen Comment Not Reportable Blood Type Antibody Screen Medical Necessity - Tobacco Use Smoking Status: Never smoker Assessment/Plan All Active Problems (Last Reviewed 09/02/19 @ 13:23 by Anitha Polanco) Influenza vaccine administered (Acute) Threatened labor (Acute) History of depression, currently in third trimester (Acute) Segmental and somatic dysfunction of sacral region (Acute) Segmental and somatic dysfunction of lumbar region (Acute) Supervision of high-risk (Acute) History of anomaly in prior , currently (Acute) Flank pain (Acute) (Acute) History of labor (Resolved) Placenta previa (Resolved) PPD#1 34 5/7 wk EGA delivery Stable pp . Continue care.
[2019-09-09 08:30] VITALS: BP 123/70; PULSE 73; RESP 16; TEMP 36.4; O2SAT 98
[2019-09-09] MEDS: Ibuprofen 600 MG Tablet PO ×2 (09:52→21:02)
[2019-09-09] MEDS: Citalopram 20 MG Tablet PO (09:53)
[2019-09-09] MEDS: Prenatal Vits Tablet 1 TABLET PO (09:53)
[2019-09-09 12:10] VITALS: BP 122/74; PULSE 69; RESP 16; TEMP 36.3; O2SAT 99
[2019-09-09 16:00] VITALS: BP 123/60; PULSE 87; RESP 15; TEMP 36.3; O2SAT 98
[2019-09-09 21:05] VITALS: BP 109/64; PULSE 72; RESP 16; TEMP 36.4
[2019-09-10 02:10] VITALS: BP 111/71; PULSE 85; RESP 16; TEMP 36.2
--- NOTE | 2019-09-10 07:26 | PCM.PN.OB ---
- Physical Exam Vital Signs Temp Pulse Resp BP Pulse Ox 97.1 F L 85 16 111/71 98 09/10/19 02:10 09/10/19 02:10 09/10/19 02:10 09/10/19 02:10 09/09/19 16:00 Oxygen Delivery Method Room Air Weight: 84.822 kg Body Mass Index (BMI) 29.2 Intake and Output for Last 24 Hours 09/08/19 09/09/19 09/10/19 23:59 23:59 23:59 Intake Total 1310.84 / 1310.84 1100 / 1100 Output Total 650 / 650 Balance 1310.84 / 1310.84 450 / 450 Medical Necessity - Tobacco Use Smoking Status: Never smoker Assessment/Plan All Active Problems (Last Reviewed 09/02/19 @ 13:23 by Anitha Polanco) Threatened labor (Acute) Placenta previa (Resolved)
[2019-09-10] MEDS: Ibuprofen 600 MG Tablet PO (09:19)
[2019-09-10] MEDS: Citalopram 20 MG Tablet PO (09:19)
[2019-09-10] MEDS: Prenatal Vits Tablet 1 TABLET PO (09:19)
[2019-09-10 09:36] VITALS: BP 105/71; PULSE 82; RESP 16; TEMP 36.8
[2019-09-10] MEDS: Senna/Docusate Sodium 1 Tablet PO (10:01)
--- NOTE | 2019-09-10 13:45 | NURSING ---
134- discharged to courtesy room
== END 2019-09-10 13:40 | disposition home or self-care (01) | DRG 560 ==
LOC: WPOUT 18:40 → WP 18:40
PROVIDERS: Advanced Practice Midwife; Admitting Provider Obstetrics & Gynecology; Family Provider Family Medicine; PCP Family Medicine; Visit Provider Obstetrics & Gynecology
DX: O60.14X0 Preterm labor third trimester with preterm delivery third trimester, not applicable or unspecified (principal); O44.03 Complete placenta previa NOS or without hemorrhage, third trimester; Z3A.34 34 weeks gestation of pregnancy; Z37.0 Single live birth; Z87.59 Personal history of other complications of pregnancy, childbirth and the puerperium
CPT/HCPCS: 59025; 59050; 81001; 85025; 86850; 86900; 86901; 87081; 87653; 99218; J7120; A4216; G0378; J0702

== ENCOUNTER → 2019-10-15 11:57 | Outpatient (CLI) | payer MEDICAID, SELFPAY ==
[2019-10-15 11:27] VITALS: BMI 29.2
[2019-10-15 12:41] LABS: T4 Free Direct 1.12 ng/dL (0.76-1.46); Thyroid Stim Hormone (TSH) 1.11 uIU/mL (0.358-3.74)
== END ==
PROVIDERS: Family Provider Family Medicine; PCP Family Medicine; Referring Provider Obstetrics & Gynecology; Visit Provider Obstetrics & Gynecology
DX: E01.0 Iodine-deficiency related diffuse (endemic) goiter (principal)
CPT/HCPCS: 36415; 84439; 84443

== ENCOUNTER → 2019-10-18 10:54 | Outpatient (CLI) | payer MEDICAID, SELFPAY ==
[2019-10-15 11:27] VITALS: BMI 29.2
--- NOTE | 2019-10-18 10:56 | US_ITS ---
STUDY: THYROID ULTRASOUND REASON FOR EXAM: Female, 19 years old. TECHNIQUE: Ultrasound evaluation of the thyroid was performed with real-time and static robertson-scale imaging. COMPARISON: None. FINDINGS: RIGHT LOBE: The right lobe of the thyroid gland measures 6 x 2.3 x 1.6) tiny cyst is present cm. There is a homogeneous echotexture. There are no demonstrated solid lesion. LEFT LOBE: The left lobe of the thyroid gland measures 5.3 x 2 x 1.1 cm cm. There is a homogeneous echotexture. 2 tiny cysts are present in the left lobe.. ISTHMUS: The isthmus measures 2.7 mm in thickness . The regional lymph nodes are normal. US/Thyroid IMPRESSION: Tiny cysts nvolving the thyroid lobes as mentioned above without solid component. Electronically Signed: Dale Hagen, at 14:06 EST Tel , Service support ,
== END ==
PROVIDERS: Family Provider Family Medicine; PCP Family Medicine; Referring Provider Obstetrics & Gynecology; Visit Provider Obstetrics & Gynecology
DX: E01.0 Iodine-deficiency related diffuse (endemic) goiter (principal)
CPT/HCPCS: 76536

== ENCOUNTER → 2019-12-07 12:28 | Outpatient (CLI) | payer MEDICAID, SELFPAY ==
[2019-11-29 14:56] VITALS: BMI 29.2
--- NOTE | 2019-12-07 12:28 | US_ITS ---
STUDY: ULTRASOUND OF THE FEMALE PELVIS - COMPLETE REASON FOR EXAM: Female, 19 years old. LMP UNKNOWN DUE TO -- IUD CHECK DUE TO PAIN AND CRAMPING LMP: Unsure. TECHNIQUE: Transabdominal and Transvaginal TECHNICAL QUALITY: Adequate. COMPARISON: None. FINDINGS: The uterus is anteverted and is in a midline position. The uterus measures 6.3 cm x 4.4 cm x 3.1 cm. Normal uterine cervix. The endometrium measures 3.0 mm in thickness, and is . There is no demonstrated endometrial mass. There is no demonstrated myometrial mass. I.U.D. - The patient does have an I.U.D. it is located in the fundal portion of the uterus. The right ovary is visualized. The right ovary measures 3.1 cm x 2.9 cm x 2.2 cm. There is no right ovarian cyst or ovarian mass. There is no visualized right adnexal mass or complex lesion. There is normal arterial and normal venous vascularity. The left ovary is visualized. The left ovary measures 3 cm x 2.7 cm x 2.0 cm. There is no left ovarian cyst or ovarian mass. There is no visualized left adnexal mass or complex lesion. There is normal arterial and normal venous vascularity. There is no fluid in the cul-de-sac. Polycystic ovary disease: No. US/Transvaginal Non- IMPRESSION: The IUD is within the fundal portion of uterus. Electronically Signed: Amado Jimenez, at 14:16 EST , Service support ,
--- NOTE | 2019-12-07 12:28 | US_ITS ---
STUDY: ULTRASOUND OF THE FEMALE PELVIS - COMPLETE REASON FOR EXAM: Female, 19 years old. LMP UNKNOWN DUE TO -- IUD CHECK DUE TO PAIN AND CRAMPING LMP: Unsure. TECHNIQUE: Transabdominal and Transvaginal TECHNICAL QUALITY: Adequate. COMPARISON: None. FINDINGS: The uterus is anteverted and is in a midline position. The uterus measures 6.3 cm x 4.4 cm x 3.1 cm. Normal uterine cervix. The endometrium measures 3.0 mm in thickness, and is . There is no demonstrated endometrial mass. There is no demonstrated myometrial mass. I.U.D. - The patient does have an I.U.D. it is located in the fundal portion of the uterus. The right ovary is visualized. The right ovary measures 3.1 cm x 2.9 cm x 2.2 cm. There is no right ovarian cyst or ovarian mass. There is no visualized right adnexal mass or complex lesion. There is normal arterial and normal venous vascularity. The left ovary is visualized. The left ovary measures 3 cm x 2.7 cm x 2.0 cm. There is no left ovarian cyst or ovarian mass. There is no visualized left adnexal mass or complex lesion. There is normal arterial and normal venous vascularity. There is no fluid in the cul-de-sac. Polycystic ovary disease: No. US/Pelvic (Non ) IMPRESSION: The IUD is within the fundal portion of uterus. Electronically Signed: Amado Jimenez, at 14:16 EST , Service support ,
== END ==
PROVIDERS: Family Provider Family Medicine; PCP Family Medicine; Referring Provider Nurse Practitioner Women's Health; Visit Provider Nurse Practitioner Women's Health
DX: Z30.431 Encounter for routine checking of intrauterine contraceptive device (principal); R10.2 Pelvic and perineal pain
CPT/HCPCS: 76830; 76856; 93976

== ENCOUNTER → 2019-12-16 15:56 | Outpatient (CLI) | payer MEDICAID, SELFPAY ==
[2019-11-29 14:56] VITALS: BMI 29.2
--- NOTE | 2019-12-16 11:42 | TONS_PTH ---
PATIENT: GLORY HARRELL LOC: [facility] U#:[id number] AGE/SX: ROOM: RE12/16/[address]: Dr. Alexander Multani MD : 2000 BED: DIS: SPEC #: [id number] RECD: 12/16/19 15:36 STATUS: KRAIG STYLESRichie #: [id number] NIDA: 12/16/19 11:[address]: Alexander Multani DEPT: SURGICAL PATHOLOGY RECD BY: Kaveh Mora ENTERED: 12/17/19 11:15 SP TYPE: TONSILS OTHR DR: Dr. Yovanny Navarro MD [facility] Tissues: Tonsil, NOS Procedures: Surgery Specimen Level III HEADER OPERATION: Tonsillectomy PRE-OP DIAGNOSIS: Chronic tonsillitis TISSUE SUBMITTED: Tonsils, right pinned MICROSCOPIC DIAGNOSIS Bilateral tonsils: Reactive lymphoid hyperplasia, consistent with chronic tonsillitis. Focal actinomyces colonization. SJ:maryjane 12/20/19 MICROSCOPIC DESCRIPTION Slides are reviewed. GROSS DESCRIPTION Received is one container labeled with the patient's name and designated tonsils - pin on right are two tonsils that in aggregate weigh 7.2 gm. The right tonsil has a pin on it and measures 3 x 2 x 1 cm. The left tonsil measures 3 x 2 x 1 cm. Both tonsils are similar in appearance. The external surfaces are pink-graves, smooth, glistening and somewhat lobulated. Focally they are hemorrhagic, granular and bear cautery artifact. Serial cross sections through the tonsils reveal normal tonsillar architecture. Sections are submitted in two cassettes as follows: 1 - right tonsil, 2 - left tonsil. / ARNALDO:maryjane 12/17/19 TC:3 CPT: 00083 x2
== END ==
LOC: LABSPEC 15:58
PROVIDERS: PCP Family Medicine; Referring Provider Otolaryngology; Visit Provider Otolaryngology
DX: J35.01 Chronic tonsillitis (principal)
CPT/HCPCS: 88304

== ENCOUNTER → 2020-03-06 11:07 | Outpatient (CLI) | payer MEDICAID, SELFPAY ==
[2019-11-29 14:56] VITALS: BMI 29.2
--- NOTE | 2020-03-06 11:10 | US_ITS ---
STUDY: ULTRASOUND OF THE FEMALE PELVIS - COMPLETE REASON FOR EXAM: Female, 19 years old. iu placement -- RLQ pain LMP: Unknown. Patient is breast-feeding. TECHNIQUE: Transabdominal and Transvaginal TECHNICAL QUALITY: Adequate. COMPARISON: Comparison is made with prior examination dated December 07, 2019. FINDINGS: The uterus is anteverted and is tilted to the right side of the pelvis. The uterus measures 6 cm x 4.6 cm x 3.0 cm. Normal uterine cervix. The endometrium measures 4.0 mm in thickness, and is hyperechoic. There is no demonstrated endometrial mass. There is no demonstrated myometrial mass. I.U.D. - The patient does have an I.U.D. The IUD is located within the fundus and midportion of the endometrium. The right ovary is visualized. The right ovary measures 3.2 cm x 2.7 x 1.8 cm. There is no right ovarian cyst or ovarian mass. There is no visualized right adnexal mass or complex lesion. There is normal arterial and normal venous vascularity. The left ovary is visualized. The left ovary measures 2.7 cm x 1.8 cm x 1.8 cm. There is no left ovarian cyst or ovarian mass. There is no visualized left adnexal mass or complex lesion. There is normal arterial and normal venous vascularity. There is no fluid in the cul-de-sac. The pre void volume of the bladder was 315 ml. Polycystic ovary disease: No. US/Pelvic (Non ) IMPRESSION: The IUD is in a good endometrial position. Electronically Signed: Amado Jimenez, at 15:32 EDT , Service support ,
--- NOTE | 2020-03-06 11:10 | US_ITS ---
STUDY: ULTRASOUND OF THE FEMALE PELVIS - COMPLETE REASON FOR EXAM: Female, 19 years old. iu placement -- RLQ pain LMP: Unknown. Patient is breast-feeding. TECHNIQUE: Transabdominal and Transvaginal TECHNICAL QUALITY: Adequate. COMPARISON: Comparison is made with prior examination dated December 07, 2019. FINDINGS: The uterus is anteverted and is tilted to the right side of the pelvis. The uterus measures 6 cm x 4.6 cm x 3.0 cm. Normal uterine cervix. The endometrium measures 4.0 mm in thickness, and is hyperechoic. There is no demonstrated endometrial mass. There is no demonstrated myometrial mass. I.U.D. - The patient does have an I.U.D. The IUD is located within the fundus and midportion of the endometrium. The right ovary is visualized. The right ovary measures 3.2 cm x 2.7 x 1.8 cm. There is no right ovarian cyst or ovarian mass. There is no visualized right adnexal mass or complex lesion. There is normal arterial and normal venous vascularity. The left ovary is visualized. The left ovary measures 2.7 cm x 1.8 cm x 1.8 cm. There is no left ovarian cyst or ovarian mass. There is no visualized left adnexal mass or complex lesion. There is normal arterial and normal venous vascularity. There is no fluid in the cul-de-sac. The pre void volume of the bladder was 315 ml. Polycystic ovary disease: No. US/Transvaginal Non- IMPRESSION: The IUD is in a good endometrial position. Electronically Signed: Amado Jimenez, at 15:32 EDT , Service support ,
== END ==
PROVIDERS: PCP Family Medicine; Referring Provider Nurse Practitioner Women's Health; Visit Provider Nurse Practitioner Women's Health
DX: Z30.430 Encounter for insertion of intrauterine contraceptive device (principal); R10.2 Pelvic and perineal pain
CPT/HCPCS: 76830; 76856; 93976

== ENCOUNTER 2020-07-10 07:10 | Emergency (ER) | payer MEDICAID, SELFPAY ==
[2019-11-29 14:56] VITALS: BMI 29.2
[2020-07-10 07:12] VITALS: BP 135/96; PULSE 102; RESP 20; TEMP 36.2; O2SAT 98; BMI 27.3
--- NOTE | 2020-07-10 07:29 | ED.VISSUMM ---
- ER Visit Summary Date of Service: 07/10/20 Chief Complaint: Rectal bleeding and lower abdominal pain History of Present Illness: The patient is a [address] chronic constipation. No prior abdominal surgeries. Currently on no medications. Patient states that she has had intermittent nausea, constipation and now some diarrhea. States she has had bright red rectal bleeding without clots since around 530 this morning. She denies any fever or chills. She denies any weight loss. She denies any prior history of GI bleeds or rectal bleeding. She denies ever having lower endoscopy. Physical Examination: Well-appearing young female vital signs are stable and afebrile. Accompanied by a freight elevator erector. Who I believe is her . H EENT exam unremarkable. Neck nontender. Lungs clear to auscultation bilaterally. Heart regular rhythm no murmur. Abdomen soft and nontender. Normal bowel sounds no peritoneal signs. Extremities moves all 4. Calves are nontender without edema. Skin there is no bruising. Neurologically she is awake and alert with no focal motor deficits. With her present in the room and get a rectal exam. There is no gross blood. There is no stool pill or there is no melena. No mass. Nontender. Test Results: White count of 10. Hemoglobin 15 hematocrit 45 normal platelets. Chemistries unremarkable normal creatinine and gap. Serum test negative. KUB B1 view read by myself and the radiologist showed no acute abnormality. Mildly increased stool and IUD present. I went over all the labs and x-ray with patient. Repeat exam at 8:25 AM she is doing well. Will be discharged home. Emergency Department Course and Treatment: Patient with lower abdominal pain and rectal bleeding. Abdominal exam is benign. Rectal exam showed no signs of bleeding at this time. Nor any blood. Labs are being obtained. She is given Zofran for nausea. Treatment Plan: Outpatient follow-up for possible lower endoscopy. Return if bleeding a lot worse. Disposition: Discharge Impression: Lower abdominal pain with rectal bleeding of uncertain etiology This note was generated with [employer] dictation software. It may contain incorrect words, spelling, and punctuation that were not noted in review of the chart prior to signing ED Disposition - Plan for ED Patient: Disposition: Home or Assisted Living Instructions: ED Hematochezia Stable Referrals: Yovanny Navarro MD [Primary Care Provider] - As Needed
--- NOTE | 2020-07-10 07:32 | ED.DEP ---
ED Disposition - Plan for ED Patient: Disposition: Home or Assisted Living Instructions: ED Hematochezia Stable Referrals: Yovanny Navarro MD [Primary Care Provider] - As Needed Additional Instructions: Follow-up with your primary care physician if needed they can refer you to 1 of the local surgeons to consider lower GI endoscopy such as a colonoscopy. Return to emergency department if you have much heavier bleeding and clots. Are you feeling a lot worse. You may have some more bleeding but less it is heavy you can just follow-up as an outpatient. Labs today were unremarkable. Your hemoglobin was 15 and hematocrit was 45.
[2020-07-10] MEDS: Ondansetron 4 MG/2 ML Vial IV (07:43)
--- NOTE | 2020-07-10 07:45 | RAD_ITS ---
STUDY: X-RAY - ABDOMEN/PELVIS REASON FOR EXAM: Female, 20 years old. lower abd pain hx of constipation TECHNIQUE: Two AP supine views of the abdomen and pelvis. COMPARISON: 03/12/2019. FINDINGS: Nonspecific, nonobstructive bowel gas pattern. Mild constipation. Intrauterine device. Normal soft tissue structures. Normal visualized osseous structures. RAD/Abdomen Single View IMPRESSION: Mild constipation Nonspecific, nonobstructive bowel gas pattern Electronically Signed: Mega Dickerson DO at 8:07 EDT Tel , Service support ,
[2020-07-10 07:55] LABS: Hematocrit 45.5 % (37-47); Hemoglobin 15.3 g/dL (12.0-15.0); Mean Corp Hgb Conc 33.6 g/dL (32-36); Mean Corpuscular Hgb 29.7 pg (27.0-32.0); Mean Corpuscular Volume 88.3 fL (81-99); Mean Platelet Vol. 9.5 fl (6.2-12.0); Platelet Count 314 K/mm3 (150-450); RBC Distribution Width CV 11.5 % (11.6-14.6); Red Blood Count 5.15 M/mm3 (4.2-5.4)
[2020-07-10 08:02] LABS: Internal QC Validated? YES +Cl - CLEAR BKGD; Pregnancy, Serum, hCG Quali. NEGATIVE Negative
[2020-07-10 08:07] LABS: Anion Gap 7 (5-15); BUN 13 mg/dL (7-18); BUN/Creat Ratio 13.2 RATIO (10-20); Calcium,Total 8.9 mg/dL (8.5-10.1); Chloride 109 mmol/L (98-107); Creatinine, Serum 0.98 mg/dL (0.55-1.02); EST Glomerular Filtration Rate 75 mL/min (>60); Est Glom Filt Rate - Afr Amer 91 mL/min (>60); Estimated Creatinine Clearance 87.56 ml/min; Glucose 86 mg/dL (74-106); Potassium 3.7 mmol/L (3.5-5.1); Sodium Level 142 mmol/L (136-145)
[2020-07-10 08:51] VITALS: BP 104/77; PULSE 68; RESP 16; O2SAT 99
== END 2020-07-10 08:51 | disposition home or self-care (01) ==
LOC: ED 07:43
PROVIDERS: Emergency Provider Emergency Medicine; PCP Family Medicine
DX: R10.30 Lower abdominal pain, unspecified (principal); K62.5 Hemorrhage of anus and rectum
CPT/HCPCS: 74018; 80048; 84703; 85027; 96374; 99283; J7030; A4216; J2405

== ENCOUNTER → 2020-10-23 12:22 | Outpatient (CLI) | payer MEDICAID, SELFPAY ==
[2020-10-16 14:57] VITALS: BMI 28.5
[2020-10-23 09:26] VITALS: BMI 28.1
--- NOTE | 2020-10-23 12:24 | US_ITS ---
STUDY: ULTRASOUND OF THE FEMALE PELVIS - COMPLETE REASON FOR EXAM: Female, 20 years old. IUD placement LMP: None TECHNIQUE: Transabdominal and Transvaginal TECHNICAL QUALITY: Adequate. COMPARISON: None. FINDINGS: The uterus is anteverted and is in a midline position. The uterus measures 6.6 cm x 5.1 cm x 2.6 cm. Normal uterine cervix. The endometrium measures 1.1 mm in thickness, and is hyperechoic. There is no demonstrated endometrial mass. There is no demonstrated myometrial mass. I.U.D. - The patient does have an I.U.D. The right ovary is visualized. The right ovary measures 4 cm x 2.4 cm x 2.1 cm. There is no right ovarian cyst or ovarian mass. There is no visualized right adnexal mass or complex lesion. There is normal arterial and normal venous vascularity. The left ovary is visualized. The left ovary measures 2.3 cm x 3 cm x 2.5 cm. There is no left ovarian cyst or ovarian mass. There is no visualized left adnexal mass or complex lesion. There is normal arterial and normal venous vascularity. There is no fluid in the cul-de-sac. The pre void volume of the bladder was 535 ml. Polycystic ovary disease: No. US/Transvaginal Non- IMPRESSION: IUD is seen within the endometrium. Electronically Signed: Amado Jimenez, at 15:58 EST , Service support ,
--- NOTE | 2020-10-23 12:24 | US_ITS ---
STUDY: ULTRASOUND OF THE FEMALE PELVIS - COMPLETE REASON FOR EXAM: Female, 20 years old. IUD placement LMP: None TECHNIQUE: Transabdominal and Transvaginal TECHNICAL QUALITY: Adequate. COMPARISON: None. FINDINGS: The uterus is anteverted and is in a midline position. The uterus measures 6.6 cm x 5.1 cm x 2.6 cm. Normal uterine cervix. The endometrium measures 1.1 mm in thickness, and is hyperechoic. There is no demonstrated endometrial mass. There is no demonstrated myometrial mass. I.U.D. - The patient does have an I.U.D. The right ovary is visualized. The right ovary measures 4 cm x 2.4 cm x 2.1 cm. There is no right ovarian cyst or ovarian mass. There is no visualized right adnexal mass or complex lesion. There is normal arterial and normal venous vascularity. The left ovary is visualized. The left ovary measures 2.3 cm x 3 cm x 2.5 cm. There is no left ovarian cyst or ovarian mass. There is no visualized left adnexal mass or complex lesion. There is normal arterial and normal venous vascularity. There is no fluid in the cul-de-sac. The pre void volume of the bladder was 535 ml. Polycystic ovary disease: No. US/Pelvic (Non ) IMPRESSION: IUD is seen within the endometrium. Electronically Signed: Amado Jimenez, at 15:58 EST , Service support ,
== END ==
PROVIDERS: PCP Family Medicine; Referring Provider Obstetrics & Gynecology; Visit Provider Obstetrics & Gynecology
DX: Z30.431 Encounter for routine checking of intrauterine contraceptive device (principal)
CPT/HCPCS: 76830; 76856

== ENCOUNTER → 2021-10-22 11:28 | Outpatient (CLI) | payer MEDICAID, SELFPAY ==
[2021-10-22 12:18] LABS: T4 Free Direct 1.26 ng/dL (0.76-1.46); Thyroid Stim Hormone (TSH) 1.31 uIU/mL (0.358-3.74)
[2021-10-25 12:38] LABS: HPV Reflexed? NOT INDICATED
== END ==
PROVIDERS: PCP Family Medicine; Referring Provider Obstetrics & Gynecology; Visit Provider Obstetrics & Gynecology
DX: Z12.4 Encounter for screening for malignant neoplasm of cervix (principal); E01.0 Iodine-deficiency related diffuse (endemic) goiter
CPT/HCPCS: 36415; 84439; 84443; 88175; G0145

== ENCOUNTER 2021-11-26 17:45 | Emergency (ER) | payer MEDICAID, SELFPAY ==
[2021-11-26 17:46] VITALS: BP 125/86; PULSE 91; RESP 16; TEMP 36.3; O2SAT 98; BMI 29.0
[2021-11-26 18:19] VITALS: BP 118/70; PULSE 80; RESP 16; O2SAT 98
--- NOTE | 2021-11-26 18:56 | EKG12_ITS ---
Test Reason : HEADACHE Blood Pressure : / mmHG Vent. Rate : 074 BPM Atrial Rate : 074 BPM P-R Int : 162 ms QRS Dur : 086 ms QT Int : 388 ms P-R-T Axes : 054 019 033 degrees QTc Int : 430 ms Normal sinus rhythm with sinus arrhythmia Normal ECG Confirmed by ROMELIA ROCA, TYREL ([id number]), video tape editor AYE DEVINE ([id number]) on 11/27/2021 11:10:59 AM Referred By: MIRANDA Confirmed By:TYREL ELÓN MD
--- NOTE | 2021-11-26 18:58 | EDS_ITS ---
HPI History of Present Illness Chief Complaint: Headache Informant: patient Narrative Narrative: 21-year-old female states for the past 2 weeks she has had headache neck back pain pain into the arms. She is also noted some chest pain. 1 week ago she went to another hospital where she was told she had a dissected vertebral vein and was placed on Plavix and aspirin. She was supposed to follow-up with vascular surgeon. She spoke with them on the phone and was advised that she come to [facility]. Patient states the pain has not really changed has been more persistent. She states that she was told that she needs to get a repeat scan within a month and follow-up after that. [facility] Medical History Anxiety Home Medications citalopram 20 mg tablet 20 mg PO DAILY #30 tab 10/22/21 [Rx Last Taken Unknown] acetaminophen-codeine [Tylenol-Codeine #3] 1 tab PO Q6H PRN 11/26/21 [History Last Taken Unknown] aspirin 81 mg PO DAILY 11/26/21 [History Last Taken Unknown] clopidogrel [Plavix] 75 mg PO DAILY 11/26/21 [History Last Taken Unknown] ondansetron HCl [Zofran] 4 mg PO Q6H PRN 11/26/21 [History Last Taken Unknown] Allergy/AdvReac Type Severity Reaction Status Date / Time No Known Allergies Allergy Verified 11/26/21 17:51 Surgical History History of tonsillectomy Social History Smoking Status: Never smoker alcohol intake: never substance use type: does not use caffeine: Yes what type of physical activity do you participate in: walking frequency: 3-4 times per week seatbelt use: always do you feel safe at home: Yes additional social history: 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 [facility] ED Constitutional Constitutional ED: Denies chills, fever(s) or weight loss Eyes Eyes: Denies change in vision or diplopia ENT ENT ED: Denies ear pain, rhinorrhea or sore throat Cardiovascular Cardiovascular: Reports chest pain; Denies orthopnea, palpitations or racing heartbeat Respiratory/Chest Respiratory/Chest: Denies cough, dyspnea or orthopnea Gastrointestinal Gastrointestinal: Denies abdominal pain, diarrhea, nausea or vomiting Genitourinary Genitourinary ED: Denies dysuria, hematuria or urinary frequency Musculoskeletal Musculoskeletal: Reports back pain, neck pain and other Details: Bilateral arm pain ; Denies arthralgias or myalgias Integumentary Denies abscess or rash Neurologic Neurologic: Denies headache(s) or weakness Psychiatric Psychiatric: Denies anxiety, depression, suicidal ideation or suicidal thoughts Endocrine Endocrinology: Denies polydipsia, polyphagia or polyuria Allergic/Immunologic Allergic/Immunologic ED: Denies mouth swelling, tongue swelling or urticaria EXAM Physical Exam Const Vital Signs: 11/26/21 17:46 11/26/21 18:19 11/26/21 19:32 Temperature 97.4 F L Temperature Source Temporal Pulse Rate 91 80 72 Respiratory Rate 16 16 16 Blood Pressure 125/86 H 118/70 114/82 H Blood Pressure Mean 99 86 92 Pulse Ox 98 98 98 Oxygen Delivery Method Room Air Room Air Room Air Positive well nourished and well developed General Appearance ED: well developed HEENT Reports normocephalic, head/scalp atraumatic, TM's clear and moist mucous membranes Negative for trauma Tympanic Membrane ED: Yes TM's clear Eyes PERRL and EOMs intact bilaterally Neck no lymphadenopathy, supple and no JVD Resp normal respiratory effort and clear to auscultation bilaterally Cardio regular rate, regular rhythm and no murmurs GI normal to inspection, nondistended, normoactive bowel sounds and non-tender Palpation: soft Back/Spine no CVA tenderness and normal ROM Extremity normal to inspection General Extremety ED: Negative for edema General Extremity: Negative for edema Neuro oriented x3 and CN's II-XII intact bilaterally Sensorium / Orientation: alert Motor Exam: strength 5/5 throughout Psych mental status grossly normal Mood & Affect: Negative for depressed or tearful Skin no rashes or lesions noted and no wounds MDM MDM MDM Narrative Medical decision making narrative: I was able to get a copy of the CT a that the patient had at outside hospital. This was read as a small intimal flap of the distal left transforaminal V2 vertebral artery at the C1 transverse foramen which was suspicious for dissection. Irregularity throughout the left transforaminal V2 vertebral artery with areas of circumferential wall thickening suggestive of underlying vasculitis. Basic blood work today is normal. EKG is normal. Are CTA of head and neck here today does not show anything acute. This point patient will be discharged home. Instructions to follow-up as scheduled Lab Data Attestation: I reviewed the patient's lab results. Labs: Laboratory Results - last 24 hr 11/26/21 11/26/21 19:20 19:20 WBC 9.6 RBC 4.68 Hgb 13.8 Hct 40.0 MCV 85.5 MCH 29.5 MCHC 34.5 RDW Std Deviation 37.2 RDW Coeff of Semaj 11.9 Plt Count 354 MPV 9.3 Immature Gran % (Auto) 0.200 Neut % (Auto) 53.6 Lymph % (Auto) 36.0 [place] % (Auto) 6.2 Eos % (Auto) 3.3 Baso % (Auto) 0.7 Absolute Neuts (auto) 5.1 Absolute Lymphs (auto) 3.45 Nucleated RBC % 0 Sodium 139 Potassium 3.6 Chloride 107 Carbon Dioxide 25.0 Anion Gap 7 BUN 12 Creatinine 0.93 Estim Creat Clear Calc 88.07 Est GFR (MDRD) Af Amer 96 Est GFR (MDRD) Non-Af 79 BUN/Creatinine Ratio 12.9 Glucose 86 Calcium 9.3 Total Bilirubin 0.20 AST 17 ALT 25 Alkaline Phosphatase 48 Total Protein 7.2 Albumin 3.6 Globulin 3.6 Albumin/Globulin Ratio 1.0 Radiography Diagnostic Testing: Clinical Impression(s) from Imaging Studies Head/Neck CTA 11/26/21 19:20 IMPRESSION: Normal CTA Head and neck with contrast. There is no visualized dissection or aneurysm. Electronically Signed: Chase Quach DO at 20:49 EST Tel [phone], Service support , EKG Initial EKG: Attestation: I personally reviewed and interpreted this EKG as follows: Comments: Normal sinus rhythm with a ventricular rate of 74 bpm Discharge Plan Triage Chief Complaint: Headache ED Provider: Ham Rankin Dx/Rx/DC Orders Clinical Impression: Headache, Acute neck pain Prescriptions: No Action citalopram [Celexa] 20 mg tablet 20 mg PO DAILY Qty: 30 RF: 12 ondansetron HCl [Zofran] 4 mg Tablet 4 mg PO Q6H PRN (Reason: Nausea) RF: 0 acetaminophen-codeine [Tylenol-Codeine #3] 300-30 mg Tablet 1 tab PO Q6H PRN (Reason: Pain) RF: 0 clopidogrel [Plavix] 75 mg Tablet 75 mg PO DAILY RF: 0 aspirin 81 mg Tablet 81 mg PO DAILY RF: 0 Primary Care Provider: Yovanny Navarro Referrals: Shahbaz Lynn MD [STAFF PHYSICIAN] - As soon as possible Yovanny Navarro MD [Primary Care Provider] - As Needed Disposition Disposition: Home, Self Care
--- NOTE | 2021-11-26 19:20 | CT_ITS ---
STUDY: CTA HEAD AND NECK WITH CONTRAST REASON FOR EXAM: Female, 21 years old. Vertebral artery dissection. RADIATION DOSAGE (If Supplied By Facility): CTDIvol = ( 26.31 ) mGy, DLP = ( 1468.09 ) mGycm TECHNIQUE: CT angiography was performed with a multi-detector CT scanner. Data acquisition was obtained from the skull base through the vertex following intravenous administration of IV 100mL [id number]-[id number]. MIP images were reconstructed from the axial data set. Post-processing of the angiographic images was performed, with multiplanar reformation and 3D reconstruction. Individualized dose optimization techniques were used for this CT. COMPARISON: No relevant priors. FINDINGS: Normal bilateral petrous carotid arteries. Normal right cavernous carotid artery with a normal supraclinoid bifurcation. Normal left cavernous carotid artery with a normal supraclinoid bifurcation. Normal right A1 segments of the anterior cerebral artery. Normal left A1 segments of the anterior cerebral artery. Normal intact anterior communicating artery (ACOM). Normal bilateral A2 segments of the anterior cerebral arteries. Normal right M1 and M2 segments of the middle cerebral arteries, with a normal M1 bifurcation. Normal left M1 and M2 segments of the middle cerebral arteries, with a normal M1 bifurcation. There is non-visualization of the right posterior communicating artery (PCOM). There is non-visualization of the left posterior communicating artery (PCOM). Normal bilateral vertebral arteries. Normal basilar artery with a normal basilar bifurcation. The visualized bilateral superior cerebellar (SCA) arteries are normal. Normal bilateral P1, P2 and visualized P3 segments of the posterior cerebral arteries. There is no demonstrated aneurysm of the [place]. There is no demonstrated abnormality of the visualized brain. AORTIC ARCH: Normal visualized aortic arch. Normal origins of the brachiocephalic, left common carotid, and left subclavian arteries. RIGHT CAROTID ARTERIES: Normal right common carotid artery (CCA). Normal right common carotid bulb. Normal origin of the right internal carotid (ICA) artery without a hemodynamically significant stenosis. Normal visualized cervical portion of the right internal carotid artery. Normal origin of the right external carotid artery (ECA). LEFT CAROTID ARTERIES: Normal left common carotid artery (CCA). Normal left common carotid bulb. Normal origin of the left internal carotid (ICA) artery without a hemodynamically significant stenosis. Normal visualized cervical portion of the left internal carotid artery. Normal origin of the left external carotid artery (ECA). VERTEBRAL ARTERIES: The left vertebral artery is smaller than the right. There is no visualized vertebral artery dissection. CT/CTA Head AND Neck W/ Contrast IMPRESSION: Normal CTA Head and neck with contrast. There is no visualized dissection or aneurysm. Electronically Signed: Chase Quach DO at 20:49 EST Tel [phone], Service support ,
[2021-11-26 19:32] VITALS: BP 114/82; PULSE 72; RESP 16; O2SAT 98
[2021-11-26 19:33] LABS: Absolute Lymphocyte Count 3.45 X10^3/uL (0.83-4.51); Absolute Neutrophil Count 5.1 X10^3/uL (2.0-7.7); Basophil# 0.07 X10^3/uL; Basophil% 0.7 % (0-1); Eosinophil# 0.32 X10^3/uL; Eosinophils% 3.3 % (0-5); Hemoglobin 13.8 g/dL (12.0-15.0); Lymphocyte # 3.45 X10^3/ul (0.83-4.51); Mean Corp Hgb Conc 34.5 g/dL (32-36); Mean Corpuscular Hgb 29.5 pg (27.0-32.0); Mean Corpuscular Volume 85.5 fL (81-99); Mean Platelet Vol. 9.3 fl (6.2-12.0); Monocyte# 0.59 X10^3/uL; Monocyte% 6.2 % (0-10); NRBC Flagged by Analyzer 0 % (0-5); Neutrophil # 5.13 X10^3/uL (2.7-7.7); Neutrophil % 53.6 % (47-70); Platelet Count 354 K/mm3 (150-450); RBC Distribution Width CV 11.9 % (11.6-14.6); RBC Distribution Width SD 37.2 fl (35.1-43.9); Red Blood Count 4.68 M/mm3 (4.2-5.4); White Blood Count 9.6 K/mm3 (4.4-11.0)
[2021-11-26 19:50] LABS: AST(SGOT) 17 U/L (15-37); Alanine Aminotransfer ALT/SGPT 25 U/L (13-56); Albumin, Serum 3.6 g/dL (3.2-5.0); Alkaline Phosphatase 48 U/L (45-117); Anion Gap 7 (5-15); BUN 12 mg/dL (7-18); BUN/Creat Ratio 12.9 RATIO (10-20); Calcium,Total 9.3 mg/dL (8.5-10.1); Chloride 107 mmol/L (98-107); Creatinine, Serum 0.93 mg/dL (0.55-1.02); EST Glomerular Filtration Rate 79 mL/min (>60); Est Glom Filt Rate - Afr Amer 96 mL/min (>60); Estimated Creatinine Clearance 88.07 ml/min; Globulin 3.6 g/dL (2.2-4.2); Glucose 86 mg/dL (74-106); Potassium 3.6 mmol/L (3.5-5.1); Protein, Total 7.2 g/dL (6.4-8.2); Sodium Level 139 mmol/L (136-145)
[2021-11-26] MEDS: HYDROcodone Bitartrate/Apap 5/325 Tablet PO (20:45)
[2021-11-26 21:11] VITALS: BP 111/71; PULSE 70; RESP 16; O2SAT 98
== END 2021-11-26 21:14 | disposition home or self-care (01) ==
PROVIDERS: Emergency Provider Emergency Medicine; PCP Family Medicine; Visit Provider Emergency Medicine
DX: R51.9 Headache, unspecified (principal); I77.74 Dissection of vertebral artery; M54.2 Cervicalgia; F41.9 Anxiety disorder, unspecified; Z79.82 Long term (current) use of aspirin; Z79.02 Long term (current) use of antithrombotics/antiplatelets; Z79.899 Other long term (current) drug therapy
CPT/HCPCS: 70496; 70498; 80053; 85025; 93005; 99283; Q9967; A4216

== ENCOUNTER 2022-06-06 18:16 | Emergency (ER) | payer MEDICAID, SELFPAY ==
[2022-06-06 18:16] VITALS: BP 143/79; PULSE 92; RESP 14; TEMP 36.4; O2SAT 99; BMI 28.1
--- NOTE | 2022-06-06 19:03 | US_ITS ---
EXAM: US ABDOMEN LIMITED, RIGHT UPPER QUADRANT CLINICAL INDICATION: ABD PAIN -- 7 WEEKS PREG TECHNIQUE: Real-time ultrasound of the right upper quadrant with image documentation. This report was created using [employer] report generation technology. COMPARISON: None. FINDINGS: LIVER: Unremarkable. There is normal echotexture. No focal hepatic lesion. No intrahepatic biliary ductal dilation. COMMON BILE DUCT: Unremarkable as visualized. The proximal common bile duct is within normal limits for the patient''s age. PANCREAS: Unremarkable as visualized. No focal abnormality is demonstrated in the pancreas. No pancreatic ductal dilatation. RIGHT KIDNEY: Unremarkable. There is no hydronephrosis. No shadowing calculus. No focal lesion or perinephric collection is demonstrated. US/Gallbladder IMPRESSION: Normal right upper quadrant ultrasound. Electronically Signed: Henok Kelley MD at 20:14 EDT ,
--- NOTE | 2022-06-06 19:05 | EX.ED.DYSGE1 ---
HPI History of Present Illness Chief Complaint: Nausea/Vomiting Informant: patient Narrative Narrative: Patient is G3, P2 approximately 7 weeks with last menstrual period April 13 presenting with abdominal pain, nausea, vomiting diarrhea. She states she has been having nausea for the past 2 and half weeks and over the past 4 days she has had diarrhea and abdominal pain. States abdominal pain is in her epigastric region as well as her right upper quadrant. She denies any sick contacts. She states she did have nausea and vomiting with prior pregnancies and required Zofran. She not take any medications for symptoms. She is concerned she could have some type of intra-abdominal infection that could affect the development of her child which is why she is in the emergency room. Denies any history of any abdominal surgeries. Note she did have some dysfunction of her GI system in a prior as well. Is following with Dr. Oliver Antunez. Has her first appointment the Friday after next. Denies any new foods or recent antibiotics. [facility] Medical History Anxiety Home Medications citalopram 20 mg tablet (Celexa) 20 mg PO DAILY #30 tabs 10/22/21 [Rx Last Taken Unknown] famotidine 20 mg tablet (Pepcid) 20 mg PO BID #14 tabs 06/06/22 [Rx Last Taken Unknown] ondansetron 4 mg disintegrating tablet 4 mg PO Q8H PRN nausea and vomiting #20 tabs 06/06/22 [Rx Last Taken Unknown] Allergy/AdvReac Type Severity Reaction Status Date / Time No Known Allergies Allergy Verified 06/06/22 18:17 Surgical History History of tonsillectomy Social History Smoking Status: Never smoker alcohol intake: never substance use type: does not use caffeine: Yes what type of physical activity do you participate in: walking frequency: 3-4 times per week seatbelt use: always do you feel safe at home: Yes additional social history: 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 ROS ROS ED Constitutional Constitutional ED: Denies chills or fever(s) Eyes Eyes: Denies blurry vision ENT ENT ED: Denies sore throat Cardiovascular Cardiovascular: Denies chest pain or palpitations Respiratory/Chest Respiratory/Chest: Denies cough Gastrointestinal Gastrointestinal: Reports abdominal pain, diarrhea, nausea and vomiting Genitourinary Genitourinary ED: Reports LMP (females 10-50) Details: Comment: (April 13); Denies dysuria, hematuria or urinary frequency Musculoskeletal Musculoskeletal: Denies arthralgias or back pain Integumentary Denies rash Neurologic Neurologic: Denies headache(s) or weakness EXAM Physical Exam Const Vital Signs: 06/06/22 18:16 06/06/22 20:16 Temperature 97.6 F L Temperature Source Temporal Pulse Rate 92 78 Respiratory Rate 14 14 Blood Pressure 143/79 H 115/78 Blood Pressure Mean 100 90 Pulse Ox 99 98 Oxygen Delivery Method Room Air Room Air Positive well nourished and well developed General Appearance ED: well developed and NAD HEENT Reports moist mucous membranes Eyes PERRL and EOMs intact bilaterally Neck supple and no JVD Chest Wall inspection of chest normal Resp normal respiratory effort and clear to auscultation bilaterally GI normal to inspection, nondistended, normoactive bowel sounds GI Narrative: Negative Odell sign Palpation: tender RUQ; Negative for guarding Back/Spine no CVA tenderness Extremity normal to inspection Neuro oriented x3 Motor Exam: Negative for general weakness Psych mental status grossly normal Skin no rashes or lesions noted and no wounds MDM MDM MDM Narrative Medical decision making narrative: Evaluated for worsening nausea, vomiting no upper abdominal pain and diarrhea. She is 7 weeks . She not have any lower abdominal pain, vaginal bleeding or pelvic discomfort. Do not think this is a primarily obstetric issue. Patient has a mild leukocytosis of 13.0 with no shift. The exact cause is not clear. CMP largely unremarkable with a normal lipase. Urine is positive consistent with her history of being 7 weeks . Urinalysis shows 100 leukoesterase, 5-10 white blood cells as well as 5-10 squamous epithelial cells and 1+ bacteria. This is nonspecific and culture sent. She is not having any urinary symptoms. Right upper quadrant ultrasound obtained as patient does have some tenderness in that area however she has a negative Odell sign. She does have no tenderness at McBurney's point. This ultrasound is normal. On repeat evaluation after receiving IV Pepcid, fluids and Zofran she feels significantly improved. She does not have any bowel movements while in the emergency room. Patient will be discharged home with a prescription for Zofran. She is counseled on the risk and benefits of Zofran in and verbalizes understanding with this and would still like prescription. She states she is using prior pregnancies as well. She is informed of her findings. She has appointment to follow-up with her [employer] in 10 days. She is counseled on return precautions. She verbalized agreement and understanding with this plan. Lab Data Attestation: I reviewed the patient's lab results. Labs: Laboratory Results - last 24 hr 06/06/22 06/06/22 06/06/22 19:13 19:13 Unknown WBC 13.0 H RBC 4.39 Hgb 13.6 Hct 38.2 MCV 87.0 MCH 31.0 MCHC 35.6 RDW Std Deviation 38.3 RDW Coeff of Semaj 11.9 Plt Count 314 MPV 9.6 Immature Gran % (Auto) 0.300 Neut % (Auto) 69.0 Lymph % (Auto) 21.9 [place] % (Auto) 6.5 Eos % (Auto) 1.9 Baso % (Auto) 0.4 Absolute Neuts (auto) 9.0 H Absolute Lymphs (auto) 2.84 Nucleated RBC % 0 Sodium 138 Potassium 3.5 Chloride 107 Carbon Dioxide 25.0 Anion Gap 6 BUN 7 Creatinine 0.68 Estim Creat Clear Calc 124.06 Est GFR (MDRD) Af Amer 137 Est GFR (MDRD) Non-Af 114 BUN/Creatinine Ratio 10.3 Glucose 91 Calcium 9.2 Total Bilirubin 0.30 AST 14 L ALT 17 Alkaline Phosphatase 35 L Total Protein 6.7 Albumin 3.5 Globulin 3.2 Albumin/Globulin Ratio 1.1 Lipase 102 Urine Color Straw Urine Clarity Clear Urine pH 6.0 Ur Specific Bruno 1.015 Urine Protein Negative Urine Glucose (UA) 50 H Urine Ketones Negative Urine Occult Blood 10 H Urine Nitrite Negative Urine Bilirubin Negative Urine Urobilinogen Normal Ur Leukocyte Esterase 100 H Urine RBC 0-5 SEEN Urine WBC 5-10 SEEN Ur Squamous Epith Cells 5-10 SEEN Urine Bacteria 1+ Urine Mucus 0 SEEN Urine Test Positive H Radiography Diagnostic Testing: Clinical Impression(s) from Imaging Studies Gallbladder Ultrasound 06/06/22 19:03 IMPRESSION: Normal right upper quadrant ultrasound. Electronically Signed: Henok Kelley MD at 20:14 EDT , Discharge Plan Triage Chief Complaint: Nausea/Vomiting ED Provider: Juana Kaur Dx/Rx/DC Orders Clinical Impression: Nausea vomiting and diarrhea, Acute upper abdominal pain, First trimester Instructions: First Trimester, ED Abdominal Pain Unkn Cause Fem, ED Vomiting (Adult) Prescriptions: New famotidine [Pepcid] 20 mg tablet 20 mg PO BID Qty: 14 0RF ondansetron 4 mg tablet,disintegrating 4 mg PO Q8H PRN (Reason: nausea and vomiting) Qty: 20 0RF No Action citalopram [Celexa] 20 mg tablet 20 mg PO DAILY Qty: 30 12RF Primary Care Provider: Yovanny Navarro Referrals: Yovanny Navarro MD [Primary Care Provider] - Rosalba Matta MD [STAFF PHYSICIAN] - (as scheduled ) Disposition Disposition: Home, Self Care
[2022-06-06 19:13] LABS: Mucous, Urine 0 SEEN /hpf (<or=2+)
[2022-06-06 19:20] LABS: Color, Urine Straw (Yellow); Glucose, Dipstick 50 mg/dl (Normal); Ketone-Dipstick Negative (Negative); Leukocyte Esterase-Dipstick 100 /ul (Negative); Nitrite-Dipstick Negative (Negative); Occult Blood-Urine 10 /ul (Negative); Protein-Dipstick Negative (Negative); Specific Gravity, Urine 1.015 (1.002-1.030); Urine Bilirubin Dipstick Negative (Negative); Urine Clarity Clear (Clear); Urine Urobilinogen Normal (Normal)
[2022-06-06 19:22] LABS: Absolute Lymphocyte Count 2.84 X10^3/uL (0.83-4.51); Basophil# 0.05 X10^3/uL; Basophil% 0.4 % (0-1); Eosinophil# 0.25 X10^3/uL; Eosinophils% 1.9 % (0-5); Hematocrit 38.2 % (37-47); Hemoglobin 13.6 g/dL (12.0-15.0); Lymphocyte # 2.84 X10^3/ul (0.83-4.51); Lymphocyte % 21.9 % (19-41); Mean Corp Hgb Conc 35.6 g/dL (32-36); Mean Platelet Vol. 9.6 fl (6.2-12.0); Monocyte# 0.84 X10^3/uL; Monocyte% 6.5 % (0-10); NRBC Flagged by Analyzer 0 % (0-5); Neutrophil # 8.97 X10^3/uL (2.7-7.7); Platelet Count 314 K/mm3 (150-450); RBC Distribution Width CV 11.9 % (11.6-14.6); RBC Distribution Width SD 38.3 fl (35.1-43.9); Red Blood Count 4.39 M/mm3 (4.2-5.4)
[2022-06-06] MEDS: 0.9% Normal Saline 1,000 ML 1000 ML IV (19:26)
[2022-06-06] MEDS: Ondansetron 4 MG/2 ML Vial IV (19:26)
[2022-06-06 19:28] LABS: Bacteria 1+ /hpf (None Seen); Red Blood Cells-Urine 0-5 SEEN /hpf (0-5); Squamous Epithelial Cells - UA 5-10 SEEN /hpf (5-10); White Blood Cells 5-10 SEEN /hpf (0-5)
[2022-06-06 19:31] LABS: Internal QC Validated? YES +Cl - CLEAR BKGD
[2022-06-06 19:32] LABS: Pregnancy, Urine Positive Negative
[2022-06-06] MEDS: Famotidine 200 MG/20 ML MDV 20 MG in 0.9% Normal Saline (Pres. free 8 ML 300 MG IV (19:57)
[2022-06-06 19:58] LABS: ALB/GLOB Ratio 1.1 RATIO (0.9-2.4); AST(SGOT) 14 U/L (15-37); Alanine Aminotransfer ALT/SGPT 17 U/L (13-56); Albumin, Serum 3.5 g/dL (3.2-5.0); Alkaline Phosphatase 35 U/L (45-117); Anion Gap 6 (5-15); BUN 7 mg/dL (7-18); BUN/Creat Ratio 10.3 RATIO (10-20); Calcium,Total 9.2 mg/dL (8.5-10.1); Chloride 107 mmol/L (98-107); Creatinine, Serum 0.68 mg/dL (0.55-1.02); EST Glomerular Filtration Rate 114 mL/min (>60); Est Glom Filt Rate - Afr Amer 137 mL/min (>60); Estimated Creatinine Clearance 124.06 ml/min; Globulin 3.2 g/dL (2.2-4.2); Glucose 91 mg/dL (74-106); Lipase 102 U/L (73-393); Potassium 3.5 mmol/L (3.5-5.1); Protein, Total 6.7 g/dL (6.4-8.2); Sodium Level 138 mmol/L (136-145)
[2022-06-06 20:16] VITALS: BP 115/78; PULSE 78; RESP 14; O2SAT 98
[2022-06-06 21:11] VITALS: BP 126/78; PULSE 78; RESP 14; TEMP 37.2; O2SAT 98
== END 2022-06-06 21:12 | disposition home or self-care (01) ==
PROVIDERS: Emergency Provider Emergency Medicine; PCP Family Medicine; Visit Provider Emergency Medicine
DX: O21.9 Vomiting of pregnancy, unspecified (principal); O99.891 Other specified diseases and conditions complicating pregnancy; R10.11 Right upper quadrant pain; R10.13 Epigastric pain; R19.7 Diarrhea, unspecified; O99.341 Other mental disorders complicating pregnancy, first trimester; F41.9 Anxiety disorder, unspecified; Z3A.01 Less than 8 weeks gestation of pregnancy
CPT/HCPCS: 76705; 80053; 81001; 81025; 83690; 85025; 87086; 87088; 96361; 96374; 96375; 99283; J7030; A4216; J2405; J3490

== ENCOUNTER → 2022-06-18 | Outpatient (CLI) | payer MEDICAID, SELFPAY ==
[2022-06-17 15:39] LABS: Amphetamine Urine VISTA NEGATIVE (<1000 ng/mL); Barbiturate Urine VISTA NEGATIVE (< 200 ng/mL); Benzodiazepine Urine VISTA NEGATIVE (< 200 ng/mL); Cocaine Urine VISTA NEGATIVE (< 300 ng/mL); Ecstacy Urine VISTA NEGATIVE (< 500 ng/mL); Methadone Urine VISTA NEGATIVE (< 300 ng/mL); PCP Urine VISTA NEGATIVE (< 25 ng/mL); THC Urine VISTA NEGATIVE (< 50 ng/mL); Vista UDS pH Range 5
[2022-06-19 22:06] LABS: Chlamydia By Nucleic Acid AMP Negative (Negative)
[2022-06-20 12:46] LABS: Gonococcus By Nucleic Acid AMP Negative (Negative)
== END | disposition home or self-care (01) ==
PROVIDERS: PCP Family Medicine; Visit Provider Obstetrics & Gynecology
DX: Z34.90 Encounter for supervision of normal pregnancy, unspecified, unspecified trimester (principal)
CPT/HCPCS: 80307; 87086; 87088; 87491; 87591

== ENCOUNTER → 2022-06-24 | Outpatient (CLI) | payer MEDICAID, SELFPAY ==
[2022-06-24 08:59] LABS: Absolute Lymphocyte Count 2.67 X10^3/uL (0.83-4.51); Absolute Neutrophil Count 6.1 X10^3/uL (2.0-7.7); Basophil# 0.05 X10^3/uL; Basophil% 0.5 % (0-1); Eosinophil# 0.27 X10^3/uL; Eosinophils% 2.8 % (0-5); Hematocrit 40.8 % (37-47); Hemoglobin 14.5 g/dL (12.0-15.0); Lymphocyte # 2.67 X10^3/ul (0.83-4.51); Lymphocyte % 27.4 % (19-41); Mean Corp Hgb Conc 35.5 g/dL (32-36); Mean Corpuscular Hgb 31.5 pg (27.0-32.0); Mean Corpuscular Volume 88.7 fL (81-99); Mean Platelet Vol. 9.9 fl (6.2-12.0); Monocyte# 0.57 X10^3/uL; Monocyte% 5.8 % (0-10); NRBC Flagged by Analyzer 0 % (0-5); Neutrophil # 6.14 X10^3/uL (2.7-7.7); Platelet Count 305 K/mm3 (150-450); RBC Distribution Width SD 38.8 fl (35.1-43.9); White Blood Count 9.8 K/mm3 (4.4-11.0)
[2022-06-24 09:46] LABS: NATERA MAILED SPECIMEN
[2022-06-24 10:04] LABS: HIV - WCH Non-Reactive (Nonreactive); Hepatitis B Surface Antigen Non-Reactive (Nonreactive); Hepatitis C Antibody Non-Reactive (Nonreactive); Rubella IgG Reactive (Nonreactive); Syphilis Antibodies Non-reactive
== END | disposition home or self-care (01) ==
LOC: PAVLAB 08:32
PROVIDERS: PCP Family Medicine; Visit Provider Obstetrics & Gynecology
DX: Z34.90 Encounter for supervision of normal pregnancy, unspecified, unspecified trimester (principal)
CPT/HCPCS: 36415; 85025; 86703; 86762; 86780; 86803; 86850; 86900; 86901; 87340

== ENCOUNTER → 2022-08-07 | Outpatient (CLI) | payer MEDICAID, SELFPAY ==
--- NOTE | 2022-08-07 15:22 | US_ITS ---
STUDY: SECOND AND THIRD TRIMESTER OBSTETRICAL ULTRASOUND - LIMITED REASON FOR EXAM: Female, 22 years old. cervical length PRIOR ULTRASOUND: None. TECHNIQUE: Transabdominal TECHNICAL QUALITY: Adequate. FINDINGS: There is a single intrauterine fetus. The fetus is in a breech presentation. There is demonstrated cardiac activity with a heart rate of 153 bpm. There is a normal amniotic fluid volume. The placenta is anterior in location and is not low lying. There are Grade 0 placental changes. The cervix measures cm in length: 3.9. BIOMETRY: Not obtained. Age by LMP: 16 weeks, 4 days. ELIJAH by LMP: 2.25.23. IMPRESSION: There is a single live intrauterine with a heart rate of 153 bpm. The cervix measures cm in length: 3.9. Electronically Signed: Yuniel Brandt MD at 16:08 EDT , STUDY: SECOND AND THIRD TRIMESTER OBSTETRICAL ULTRASOUND - LIMITED REASON FOR EXAM: Female, 22 years old. cervical length PRIOR ULTRASOUND: None. TECHNIQUE: Transvaginal TECHNICAL QUALITY: Adequate. FINDINGS: There is a single intrauterine fetus. The fetus is in a breech presentation. There is demonstrated cardiac activity with a heart rate of 153 bpm. There is a normal amniotic fluid volume. The placenta is anterior in location and is not low lying. There are Grade 0 placental changes. The cervix measures cm in length: 3.9. BIOMETRY: Not obtained. Age by LMP: 16 weeks, 4 days. ELIJAH by LMP: 2.25.23. US/OB Limited (No Biometrics) IMPRESSION: There is a single live intrauterine with a heart rate of 153 bpm. The cervix measures cm in length: 3.9. Electronically Signed: Yuniel Brandt MD at 16:09 EDT ,
== END | disposition home or self-care (01) ==
LOC: US 15:15
PROVIDERS: PCP Family Medicine; Referring Provider Obstetrics & Gynecology; Visit Provider Obstetrics & Gynecology
DX: O32.1XX0 Maternal care for breech presentation, not applicable or unspecified (principal); Z3A.16 16 weeks gestation of pregnancy; Z87.51 Personal history of pre-term labor
CPT/HCPCS: 76815; 76817

== ENCOUNTER → 2022-08-19 | Outpatient (CLI) | payer MEDICAID, SELFPAY ==
--- NOTE | 2022-08-19 16:17 | US_ITS ---
STUDY: SECOND AND THIRD TRIMESTER OBSTETRICAL ULTRASOUND Female, 22 years old cervical length -- Standing order every two weeks cervix length only. History of labor. 3 para 2 LMP: 04/13/2022 TECHNIQUE: Transabdominal TECHNICAL QUALITY: Adequate. PRIOR ULTRASOUND: 08/07/2022 FINDINGS: There is a single intrauterine fetus. There is demonstrated cardiac activity with a heart rate of 135 bpm. There is a normal amniotic fluid volume. The placenta is posterior There are Grade 0 placental changes. The cervix measures 4 cm in length. Previously 3.8 x 3.9 cm. Closed internal cervical os. Age by LMP: 18 weeks, 2 days. ELIJAH by LMP: 01/18/2023. US/Transvaginal w/Preg US IMPRESSION: Live intrauterine . Cervix length 4 cm with closed internal cervical os. Electronically Signed: Alejandra Montez MD at 3:18 EDT Reading Location ID and State: , Service support ,
== END | disposition home or self-care (01) ==
LOC: US 16:16
PROVIDERS: PCP Family Medicine; Referring Provider Obstetrics & Gynecology; Visit Provider Obstetrics & Gynecology
DX: O09.212 Supervision of pregnancy with history of pre-term labor, second trimester (principal); Z3A.18 18 weeks gestation of pregnancy
CPT/HCPCS: 76817

== ENCOUNTER → 2022-08-22 | Outpatient (CLI) | payer MEDICAID, SELFPAY | END | disposition home or self-care (01) | LOC: LABSPEC 13:37 | PROVIDERS: PCP Family Medicine; Visit Provider Nurse Practitioner Women's Health | DX: R39.9 Unspecified symptoms and signs involving the genitourinary system (principal); R10.9 Unspecified abdominal pain | CPT/HCPCS: 87086 ==

== ENCOUNTER → 2022-08-22 | Outpatient (CLI) | payer MEDICAID, SELFPAY ==
--- NOTE | 2022-08-22 16:00 | US_ITS ---
STUDY: RENAL ULTRASOUND - COMPLETE REASON FOR EXAM: Female, 22 years old. Right Flank pain TECHNIQUE: Ultrasound evaluation of the kidneys was performed with real-time and static sarmiento-scale imaging. COMPARISON: 03/26/2019 FINDINGS: RIGHT KIDNEY: Normal location of the right kidney, which is normal in size. The right kidney measures 11.5 cm. There is a normal cortex of the right kidney. The renal cortex measures 1.0 cm. There is no right renal mass or cyst. There are no right renal calculi. There is mild hydronephrosis of the right kidney. DISTAL RIGHT URETER: There is non-visualization of the distal right ureter. There is no demonstrated right ureterovesical junction calculus. There is a visualized right ureteral jet. LEFT KIDNEY: Normal location of the left kidney, which is normal in size. The left kidney measures 13.0 cm. There is a normal cortex of the left kidney. The renal cortex measures 1.2 cm. There is no left renal mass or cyst. There are no left renal calculi. There is no left hydronephrosis. DISTAL LEFT URETER: There is non-visualization of the distal left ureter. There is no demonstrated left ureterovesical junction calculus. There is a visualized left ureteral jet. BLADDER: The distended urinary bladder has a volume of 79 ml. The empty urinary bladder has a volume of ml. There is a normal wall thickness of the distended urinary bladder. There is no demonstrated mass within the urinary bladder. There are no demonstrated bladder calculi. US/Kidney and Bladder IMPRESSION: Mild right hydronephrosis. Electronically Signed: Charles Allen MD at 17:28 EDT ,
== END | disposition home or self-care (01) ==
LOC: US 15:59
PROVIDERS: PCP Family Medicine; Referring Provider Nurse Practitioner Women's Health; Visit Provider Nurse Practitioner Women's Health
DX: O99.891 Other specified diseases and conditions complicating pregnancy (principal); N13.30 Unspecified hydronephrosis; R10.9 Unspecified abdominal pain; R39.9 Unspecified symptoms and signs involving the genitourinary system; O09.90 Supervision of high risk pregnancy, unspecified, unspecified trimester; Z3A.00 Weeks of gestation of pregnancy not specified
CPT/HCPCS: 76770; 87086; 87088

== ENCOUNTER 2022-08-30 21:26 | Emergency (ER) | payer MEDICAID, SELFPAY ==
[2022-08-30 21:28] VITALS: BP 125/64; PULSE 73; RESP 16; TEMP 35.8; O2SAT 99
[2022-08-30 21:29] VITALS: BP 125/64; PULSE 73; RESP 16; TEMP 35.8; O2SAT 99; BMI 29.7
--- NOTE | 2022-08-30 22:24 | EDS_ITS ---
HPI History of Present Illness Chief Complaint: Palpitations Informant: patient Narrative Narrative: Patient presents with occasional sensation of a palpitation or administer extra beat. She states when she feels this heartbeat she has a moment where she feels just slightly lightheaded and may be a little short of breath. But it just last for that moment of the heartbeat. In between episodes she feels fine. She is not having chest pain pressure or tightness. No cough. She is on Hobson injections and is currently 20 weeks . There is no other known history of risk factor for PE or DVT. No leg pain or swelling. These episodes just occur intermittently and last for about a second or so?the length of the heart beat or 2. She feels totally normal now. PFSH PFS Medical History Anxiety Home Medications PNV no.63-iron,carbonyl 27mg-folic acid 800 mcg-dha 200 mg capsule 1 cap PO DAILY 06/12/22 [History Last Taken Unknown] prochlorperazine maleate 10 mg tablet (Compazine) 10 mg PO Q8H PRN nausea and vomiting #90 tabs 06/17/22 [Rx Last Taken Unknown] citalopram 20 mg tablet 20 mg PO DAILY #30 tabs 07/17/22 [Rx Last Taken Unknown] Allergy/AdvReac Type Severity Reaction Status Date / Time No Known Allergies Allergy Verified 08/22/22 11:31 Surgical History History of tonsillectomy Social History adopted: No household members: spouse and children housing: house number of children: 2 current occupational status: unemployed 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 current occupational exposures/hazards: No pets and animals: Yes pets and animals: dog(s) history of recent travel: No sexually active: Yes Smoking Status: Never smoker alcohol intake: never substance use type: does not use well-balanced diet: daily or most days caffeine: Yes (occasional) Type: carbonated beverages eating out: 1-3 times/week what type of physical activity do you participate in: walking frequency: 3-4 times per week duration: 45-60 minutes/day charlie/restorationism: None seatbelt use: always do you feel safe at home: Yes additional social history: 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 SYL ROS ED Constitutional Constitutional ED: Denies chills or fever(s) Eyes Eyes: Denies change in vision ENT ENT ED: Denies rhinorrhea or sore throat Cardiovascular Cardiovascular: Reports palpitations; Denies chest pain or racing heartbeat Respiratory/Chest Respiratory/Chest: Reports dyspnea; Denies cough Gastrointestinal Gastrointestinal: Denies abdominal pain, nausea or vomiting Genitourinary Genitourinary ED: Denies dysuria Musculoskeletal Musculoskeletal: Denies myalgias Integumentary Denies rash Neurologic Neurologic: Denies headache(s) Psychiatric Psychiatric: Reports anxiety Hematologic/Lymphatic Hematologic/Lymphatic: Denies easy bleeding or easy bruising Allergic/Immunologic Allergic/Immunologic ED: Denies urticaria EXAM Physical Exam Const Vital Signs: 08/30/22 21:29 08/30/22 21:28 08/30/22 23:14 Temperature 96.4 F L 96.4 F L Temperature Source Temporal Temporal Pulse Rate 73 73 74 Respiratory Rate 16 16 20 H Blood Pressure 125/64 H 125/64 H 98/58 L Blood Pressure Mean 84 84 71 Pulse Ox 99 99 Oxygen Delivery Method Room Air Room Air Room Air Positive well nourished and well developed General Appearance ED: well developed and NAD; Negative for cyanotic, diaphoretic or pallor HEENT Reports moist mucous membranes Eyes EOMs intact bilaterally General Eye ED: Negative for scleral icterus Neck no JVD Resp normal respiratory effort and clear to auscultation bilaterally Auscultation: Negative for rales, rhonchi or wheezes Cardio regular rate and regular rhythm Rate: other Other Details: Patient had a very regular normal sinus beat at about 70 while I was in the room. She had 1 PAC with compensatory pause. She felt this as the symptoms that she is complaining about. Her symptoms lasted for moments. ; Negative for bradycardia or tachycardic GI normal to inspection, nondistended, normoactive bowel sounds and non-tender Back/Spine no CVA tenderness Extremity normal to inspection Extremity Narrative: No edema cords asymmetry or distended veins. No tenderness along the deep venous system. General Extremety ED: Negative for edema or tenderness General Extremity: Negative for edema Neuro Sensorium / Orientation: alert Psych mental status grossly normal Skin no rashes or lesions noted General Skin Exam: Negative for jaundice or pallor MDM MDM MDM Narrative Medical decision making narrative: Patient has mild elevation of white count which is typical for her stage of gestation. Electrolytes show no marked abnormalities. I reviewed her monitor strips here while in the department. She does have a notable sinus arrhythmia at times. But this is just sign of young heart. But she has at least 3 and possibly 5 episodes of PACs with compensatory pauses. These are the episodes she feels. In between these episodes she feels fine. I do not think PACs with transient momentary symptoms justify a CTA of the chest. We discussed this with her. She is on Hobson injections and is but she only has symptoms when she has the palpitation or PAC. Lab Data Attestation: I reviewed the patient's lab results. Labs: Laboratory Results - last 24 hr 08/30/22 08/30/22 22:35 22:35 WBC 14.0 H RBC 3.98 L Hgb 13.0 Hct 36.4 L MCV 91.5 MCH 32.7 H MCHC 35.7 RDW Std Deviation 40.8 RDW Coeff of Semaj 12.3 Plt Count 267 MPV 9.7 Immature Gran % (Auto) 0.300 Neut % (Auto) 64.3 Lymph % (Auto) 25.4 [place] % (Auto) 6.6 Eos % (Auto) 3.1 Baso % (Auto) 0.3 Absolute Neuts (auto) 9.0 H Absolute Lymphs (auto) 3.55 Nucleated RBC % 0 Sodium 142 Potassium 3.9 Chloride 110 H Carbon Dioxide 25.0 Anion Gap 7 BUN 5 L Creatinine 0.55 Estim Creat Clear Calc 153.38 Est GFR (MDRD) Af Amer 176 Est GFR (MDRD) Non-Af 145 BUN/Creatinine Ratio 9.2 L Glucose 80 Calcium 8.7 Discharge Plan Triage Chief Complaint: Palpitations ED Provider: Mario Baez Dx/Rx/DC Orders Clinical Impression: PAC (premature atrial contraction), Instructions: ED Palpitations Prescriptions: No Action PNV no.63-iron,tctniiza-WI-nxo 27 mg iron- 800 mcg-200 mg capsule 1 cap PO DAILY prochlorperazine maleate [Compazine] 10 mg tablet 10 mg PO Q8H PRN (Reason: nausea and vomiting) Qty: 90 3RF citalopram 20 mg tablet 20 mg PO DAILY Qty: 30 12RF Primary Care Provider: Yovanny Navarro Referrals: Yovanny Navarro MD [Primary Care Provider] - 3-5 Days Disposition Disposition: Home, Self Care
[2022-08-30 22:44] LABS: Absolute Lymphocyte Count 3.55 X10^3/uL (0.83-4.51); Basophil# 0.04 X10^3/uL; Basophil% 0.3 % (0-1); Eosinophil# 0.44 X10^3/uL; Eosinophils% 3.1 % (0-5); Hematocrit 36.4 % (37-47); Lymphocyte # 3.55 X10^3/ul (0.83-4.51); Lymphocyte % 25.4 % (19-41); Mean Corp Hgb Conc 35.7 g/dL (32-36); Mean Corpuscular Hgb 32.7 pg (27.0-32.0); Mean Corpuscular Volume 91.5 fL (81-99); Mean Platelet Vol. 9.7 fl (6.2-12.0); Monocyte# 0.93 X10^3/uL; Monocyte% 6.6 % (0-10); NRBC Flagged by Analyzer 0 % (0-5); Neutrophil % 64.3 % (47-70); Platelet Count 267 K/mm3 (150-450); RBC Distribution Width CV 12.3 % (11.6-14.6); RBC Distribution Width SD 40.8 fl (35.1-43.9); Red Blood Count 3.98 M/mm3 (4.2-5.4)
[2022-08-30 22:57] LABS: Anion Gap 7 (5-15); BUN 5 mg/dL (7-18); BUN/Creat Ratio 9.2 RATIO (10-20); Calcium,Total 8.7 mg/dL (8.5-10.1); Chloride 110 mmol/L (98-107); Creatinine, Serum 0.55 mg/dL (0.55-1.02); EST Glomerular Filtration Rate 145 mL/min (>60); Est Glom Filt Rate - Afr Amer 176 mL/min (>60); Estimated Creatinine Clearance 153.38 ml/min; Glucose 80 mg/dL (74-106); Potassium 3.9 mmol/L (3.5-5.1); Sodium Level 142 mmol/L (136-145)
[2022-08-30 23:14] VITALS: BP 98/58; PULSE 74; RESP 20
[2022-08-31 00:36] VITALS: BP 101/64; PULSE 74; RESP 15; O2SAT 95
== END 2022-08-31 00:37 | disposition home or self-care (01) ==
PROVIDERS: Emergency Provider Emergency Medicine; PCP Family Medicine; Visit Provider Emergency Medicine
DX: O99.412 Diseases of the circulatory system complicating pregnancy, second trimester (principal); I49.1 Atrial premature depolarization; Z3A.20 20 weeks gestation of pregnancy
CPT/HCPCS: 80048; 85025; 93005; 99283; A4216

== ENCOUNTER → 2022-10-31 | Outpatient (CLI) | payer MEDICAID, SELFPAY ==
[2022-10-31 16:19] LABS: Glucose Challenge Gest 1H 50g 154 mg/dL (70-140)
[2022-10-31 17:07] LABS: HIV - WCH Non-Reactive (Nonreactive); Syphilis Antibodies Non-reactive
[2022-10-31 23:56] LABS: Xtra Tube EP Lab EXTRA TUBE
== END | disposition home or self-care (01) ==
LOC: PAVLAB 15:41
PROVIDERS: Nurse Practitioner Women's Health; PCP Family Medicine; Referring Provider Obstetrics & Gynecology; Visit Provider Obstetrics & Gynecology
DX: Z34.90 Encounter for supervision of normal pregnancy, unspecified, unspecified trimester (principal)
CPT/HCPCS: 36415; 82950; 86703; 86780

== ENCOUNTER → 2022-11-05 | Outpatient (CLI) | payer MEDICAID, SELFPAY ==
[2022-11-05 07:43] LABS: Glucose GTT-Gestation. Fasting 88 mg/dL (<105)
[2022-11-05 08:49] LABS: Glucose GTT-Gestational 1 Hr 128 mg/dL (<190)
[2022-11-05 10:18] LABS: Glucose GTT-Gestational 2 Hr 139 mg/dL (<165)
[2022-11-05 14:28] LABS: Glucose GTT-Gestational 3 Hr 132 L (<145)
== END | disposition home or self-care (01) ==
LOC: LAB 07:00
PROVIDERS: PCP Family Medicine; Referring Provider Obstetrics & Gynecology; Visit Provider Obstetrics & Gynecology
DX: Z13.1 Encounter for screening for diabetes mellitus (principal)
CPT/HCPCS: 36415; 82951; 82952

== ENCOUNTER → 2022-11-26 | Outpatient (CLI) | payer MEDICAID, SELFPAY ==
--- NOTE | 2022-11-26 14:29 | US_ITS ---
EXAM: US , LIMITED CLINICAL INDICATION: growth -- 32 weeks TECHNIQUE: Real-time limited ultrasound of the maternal uterus with image documentation. This report was created using [employer] report generation technology. COMPARISON: None. FINDINGS: FETUS: There is a single intrauterine gestation. GESTATIONAL AGE: Gestational age is 32 weeks 3 days. ELIJAH: ELIJAH is 01/18/2023. EFW: Estimated weight is 2026 g, 48th percentile. BPD: Biparietal diameter is 8.2 cm age 32 weeks 6 days, 55th percentile. HC: Head circumference is 30.3 cm age 33 weeks 5 days, 47th percentile. AC: Abdominal circumference is 28.8 cm age 32 weeks 6 days, 61st percentile. FL: Femur length is 6.2 cm age 32 weeks 0 days, 27th percentile. POSITION: The fetus is in cephalic position. HEART RATE: heart rate 138 bpm. PLACENTA: The placenta is posterior. AMNIOTIC FLUID: LINDSEY 17.3 cm. CERVIX: Cervix measures 3.8 cm. US/OB Limited With Biometrics IMPRESSION: Intrauterine gestation with an average ultrasound age of 33 weeks 0 days and an ultrasound estimated due date of 01/14/2023. The heart rate is 138 bpm. LINDSEY is 17.3 cm. Electronically Signed: Abhay Presley MD at 16:11 EST ,
== END | disposition home or self-care (01) ==
LOC: US 14:28
PROVIDERS: PCP Family Medicine; Referring Provider Nurse Practitioner Women's Health; Visit Provider Nurse Practitioner Women's Health
DX: O98.52 Other viral diseases complicating childbirth (principal); U07.1 COVID-19; Z3A.32 32 weeks gestation of pregnancy
CPT/HCPCS: 76816

== ENCOUNTER 2022-12-06 20:00 | Outpatient (CLI) | payer MEDICAID, SELFPAY ==
[2022-12-06 20:34] VITALS: BP 125/67; PULSE 85; O2SAT 99
[2022-12-06 20:42] VITALS: BP 125/67; PULSE 96; TEMP 36.7; O2SAT 99
[2022-12-06] MEDS: Lactated Ringers 1,000 ML 999 ML IV (20:45)
[2022-12-06 20:50] VITALS: BMI 31.5
--- NOTE | 2022-12-06 21:05 | HP.PCM.OB_ITS ---
HPI - General General Date of Admission: 12/06/22 HPI Narrative GLORY HARRELL, is a 22 y/o @ 33 weeks 6 days who presents to labor and delivery due to nausea and vomiting and contractions. She was found to have contractions on the monitor and dilated 2/3 station. She has a history of 2 prior deliveries. Maternal Data Information ELIJAH Calculator Estimated Delivery Date Method Current WG Current Estimate 01/18/23 LMP (Certain) 33w 6d PFSH PFSH Medical History Anxiety Home Medications PNV no.63-iron,carbonyl 27mg-folic acid 800 mcg-dha 200 mg capsule 1 cap PO DAILY 06/12/22 [History Last Taken 12/06/22 08:00] Pepcid 1 tab PO/SL DAILY Check with primary doctor 12/06/22 [History Last Taken 12/05/22] aspirin 81 mg capsule 81 mg PO DAILY 12/06/22 [History Last Taken 12/06/22 08:00] progesterone micronized 100 mg vaginal insert (Endometrin) 2 insert vaginal DAILY 12/06/22 [History Last Taken 12/05/22 21:00] Allergy/AdvReac Type Severity Reaction Status Date / Time No Known Allergies Allergy Verified 11/29/22 10:02 Surgical History History of tonsillectomy Social History adopted: No household members: spouse and children housing: house number of children: 2 current occupational status: unemployed 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 current occupational exposures/hazards: No pets and animals: Yes pets and animals: dog(s) history of recent travel: No sexually active: Yes Smoking Status: Never smoker alcohol intake: never substance use type: does not use well-balanced diet: daily or most days caffeine: Yes (occasional) Type: carbonated beverages eating out: 1-3 times/week what type of physical activity do you participate in: walking frequency: 3-4 times per week duration: 45-60 minutes/day charlie/adventist: None seatbelt use: always do you feel safe at home: Yes additional social history: Jose- Works for [employer] 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 Date Name GA/Weeks Outcome Route Bth Weight Gen Labor Lgth Anesthesia Del Locatn Provider FOB 05/12/18 adaline 32 live - 4lb 7 oz Female s tarted at 20 weeks none [facility] 09/08/19 [place] 34 live - 6.10 Female [facility] Dr. Mika Arenas Delivery Date: 09/08/19 Last Updated by: Delia Street transferred to [facility] Visit Details Expected Delivery Route/Plan Labor Preferences- CB/BF classes: done labor support person:jose labor intervention preferences: [] pain management options preferred: breathing cut cord/dad catch: yes : yes PP control planned: discussed discussed possible routes of delivery and associated risks: [] special requests: [] Plans Covid status: declined Flu vaccine: declined Tdap vaccine: given Rhogam: n/a LARC form signed: yes Problem list reviewed and updated with the most current plan of care details and appropriate orders placed. Relevant counseling for the gestational age provided. Continue routine care and follow up unless otherwise noted in visit notes/problem list details OB Flowsheet Initial Weight: Not Recorded Date -?-?-?-?-?-?-?-?-?-?-?-?- EGA Weight BP Urine Prot -?-?-?-?-?-?-?-?-?-?-?-?- Glucose FHR FuHt Pres Dilation -?-?-?-?-?-?-?-?-?-?-?-?- Effaced St Visit Note 06/17/22 -?-?-?-?-?-?-?-?-?-?-?-?- 9w 2d 186 lb 100/80 -?-?-?-?-?-?-?-?-?-?-?-?- 160 -?-?-?-?-?-?-?-?-?-?-?-?- CRL 2 cm cons wi th lMP 07/17/22 -?-?-?-?-?-?-?-?-?-?-?-?- 13w 4d 183 lb 6 oz 120/70 Nega tive -?-?-?-?-?-?-?-?-?-?-?-?- Negative 130 -?-?-?-?-?-?-?-?-?-?-?-?- JV- pt states th at libido is declined since starting 40 mg of the antidepressant. also wonders if sushma is going to be given on time (16 weeks) no cramping or spotting. will dec dose to 20 and find out progress on sushma approval. 08/13/22 -?-?-?-?-?-?-?-?-?-?-?-?- 17w 3d 186 lb 8 oz 116/76 Nega tive -?-?-?-?-?-?-?-?-?-?-?-?- Negative 143 -?-?-?-?-?-?-?-?-?-?-?-?- MH-No VB, crampi ng. Feeling flutters. Will get CL US [facility] next week. Anatomy US with MFM 08/2309/13/22 -?-?-?-?-?-?-?-?-?-?-?-?- 21w 6d 195 lb 8 oz 108/72 Nega tive -?-?-?-?-?-?-?-?-?-?-?-?- 1000 g/dL 140 21 -?-?-?-?-?-?-?-?-?-?--?-?- LC- no vb,crampi ng. normal anatomy scan. cont with q2week CL. last 34.9mm. on sushma. elevated urine glucose. finger glucose=9 3. has not eaten yet today. 10/11/22 -?-?-?-?-?-?-?-?-?-?-?-?- 25w 6d 198 lb 112/78 Negative -?-?-?-?-?-?-?-?-?-?-?-?- Negative 145 26 -?-?-?-?-?-?-?-?-?-?-?-?- SM- no vb lof go od fm no regular ctx 10/31/22 -?-?-?-?-?-?-?-?-?-?-?-?- 28w 5d 194 lb 4 oz 116/72 Nega tive -?-?-?-?-?-?-?-?-?-?-?-?- Negative 142 28 -?-?-?-?-?-?-?-?-?-?-?-?- MH-No VB, LOF. G ood FM. Had Covid 2 wks ago. Start baby ASA daily and growth US 32 and 36 wk. 28 wk labs, tdap, larc 11/14/22 -?-?-?-?-?-?-?-?-?-?-?-?- 30w 5d 197 lb 100/65 -?-?-?-?-?-?-?-?-?-?-?-?- 145 30 -?-?-?-?-?-?-?-?-?-?-?-?- JV- no lof, vagi nal bleeding, or dec fm. no complaints today. normal 3 hr. concerns that patient filled her urine cup with water. is taking baby asa for covid 2 weeks ago 11/29/22 -?-?-?-?-?-?-?-?-?-?-?-?- 32w 6d 201 lb 109/77 Negative -?-?-?-?-?-?-?-?-?-?-?-?- Negative 145 33 -?-?-?-?-?-?-?-?-?-?-?-?- Sm- no vb lof go od fm n oregular ctx ROS Constitutional Constitutional: Denies change in weight, fatigue, fever(s), headache(s), poor appetite or weakness Eyes Eyes: Denies blurry vision, change in vision, seeing flashes or spots in vision ENT HEENT: Denies dizziness, headache(s), loss taste/smell or sore throat Cardiovascular Cardiovascular: Denies chest pain, dizziness, dyspnea, irregular heart rhythm, leg edema, palpitations, rapid heart rate or vomiting Respiratory/Chest Respiratory/Chest: Denies chest tightness, cough, dyspnea or breast pain Gastrointestinal Gastrointestinal: Denies abdominal pain, anorexia, constipation, cramping, diarrhea, hemorrhoids, vomiting or weight changes Genitourinary Genitourinary: Denies dysuria, flank pain, genital lesions, genital pain, urinary frequency or urinary urgency Musculoskeletal Musculoskeletal: Denies back pain, difficulty walking, joint pain, limited range of motion, muscle cramps or numbness Integumentary Integumentary: Denies lesions or unusual bruising Neurologic Neurologic: Denies abnormal movements, abnormal speech, dizziness, numbness, seizure-like activity or syncope Psychiatric Psychiatric: Denies anxiety, behavioral changes, change in appetite, change in libido, cognitive impairment, confusion, depression, difficulty concentrating, hallucinations or suicidal thoughts Endocrine Endocrinology: Denies excessive sweating, polydipsia or polyuria Hematologic/Lymphatic Hematologic/Lymphatic: Denies easy bleeding, easy bruising or lymphadenopathy Allergic/Immunologic Allergic/Immunologic: Denies itchy eyes, lip swelling, seasonal rhinorrhea, rhinitis, throat swelling, tongue swelling, eczemia, wheezing or asthma Vital Signs Vital Signs Vital Signs: 12/06/22 20:34 12/06/22 20:34 12/06/22 20:34 Temperature Temperature Source Pulse Rate 85 Blood Pressure 125/67 H BP Systolic 125 BP Diastolic 67 Pulse Ox 99 12/06/22 20:42 12/06/22 20:42 12/06/22 20:42 Temperature Temperature Source Temporal Pulse Rate 96 Blood Pressure 125/67 H BP Systolic 125 BP Diastolic 67 Pulse Ox 12/06/22 20:42 12/06/22 20:42 Temperature 98.0 F Temperature Source Pulse Rate Blood Pressure BP Systolic BP Diastolic Pulse Ox 99 Weight Weight: 201 lb 6.4 oz Body Mass Index (BMI) 31.5 Physical Exam Const alert, oriented x3, no apparent distress and healthy appearing General Appearance: cooperative; Negative for anxious HEENT normocephalic Face and Sinus: normal facial exam Eyes EOMs intact bilaterally and no scleral icterus General Eye: normal appearance of both eyes Neck full ROM and supple Lymph Lymphatic: no lymphadenopathy noted Chest Chest: abnormal inspection of the chest Resp normal respiratory effort Effort and Inspection: able to speak in complete sentences Cardio regular rate GI soft to palpation and non-tender Inspection: gravid Palpation: soft; Negative for tender external exam normal Back/Spine no CVA tenderness Extremity normal to inspection, full ROM and no clubbing, cyanosis or edema General Extremity: Negative for calf tenderness or edema Skin Lesions: no lesions Rashes: no rashes Psych mental status grossly normal Labs Labs Labs: Blood Type A POSITIVE Antibody Screen NEGATIVE Hct 36.4 % (37-47) L Hgb 13.0 g/dL (12.0-15.0) Obstetrics US Syphilis Total Ab Non-reactive Rubella IgG Antibody Reactive (Nonreactive) Hep Bs Antigen Non-Reactive (Nonreactive) Chlamydia DNA (KATEY) Negative (Negative) Neisseria gonorrhoeae DNA (KATEY) Negative (Negative) HIV 1&2 Antibody Non-Reactive (Nonreactive) Glucose 1 Hr 50 gm 154 mg/dL (70-140) H Group B Strep DNA Negative (Negative) Rhogam given: No Miscellaneous Test Assessment & Plan (1) Abnormal glucose affecting : COMMENT: nl 3 hr gtt (2) COVID-19 affecting childbirth: COMMENT: + late September. Taking baby ASA daily, 32 and 36 wk US, 11/26/22 nl growth (3) UTI symptoms: COMMENT: neg urine culture (4) Anxiety and depression: COMMENT: celexa increased to 40 mg encouraged counseling/improved (5) History of labor: COMMENT: delivered at 32 weeks and 34 weeks in prior pregnancies, plan sushma injections. US for CL E/O week, 09/09 CL 31.4mm. 10/02/22 Sto[ Sushma injections due to SE. Start progesterone vaginally at hs. (6) Supervision of high risk , antepartum: COMMENT: PRR , ELIJAH 01/18/23 girl, PC [place] 2yo & [place] 2yo Spouse Jose (7) : QUALIFIERS: Weeks of gestation: 32 weeks Qualified Code(s): Z3A.32 - 32 weeks gestation of COMMENT: anatomy nl, NIPT low risk, declined Carrier testing,10/31 abnormal 1 HR GCT, 3 HR GTT nl (8) Thyromegaly: COMMENT: labs and us nl (9) Threatened labor, antepartum: PLAN: admit to l&D for prolonged observation. start tocolytics with procarida 10 mg q 4 hrs IV fluid bolus going now 4 mg iv zofran and q 6 prn imodium 2 tabs now gbs collected celestone 12.5 x 2 24 hrs apart. Charges/Coding Visit Charges Inpatient E&M: 98550 Init Hosp L3
[2022-12-06 21:16] LABS: Bacteria 0 SEEN /hpf (None Seen); Mucous, Urine 0 SEEN /hpf (<or=2+); Red Blood Cells-Urine 0 SEEN /hpf (0-5); Squamous Epithelial Cells - UA 0 SEEN /hpf (5-10); White Blood Cells 0 SEEN /hpf (0-5)
[2022-12-06] MEDS: Ondansetron 4 MG/2 ML Vial IV (21:20)
[2022-12-06] MEDS: NIFEdipine 10 MG Capsule PO (21:23)
[2022-12-06] MEDS: Betamethasone/Betamethasone 30 MG/5 ML Vial 12 MG IM (21:23)
[2022-12-06] MEDS: Loperamide 2 MG Capsule 4 MG PO (21:24)
[2022-12-06 21:26] LABS: Color, Urine Yellow (Yellow); Glucose, Dipstick 100 mg/dl (Normal); Ketone-Dipstick Negative (Negative); Leukocyte Esterase-Dipstick 25 /ul (Negative); Nitrite-Dipstick Negative (Negative); Occult Blood-Urine Negative /ul (Negative); Protein-Dipstick 15 mg/dl (Negative); Urine Bilirubin Dipstick Negative (Negative); Urine Clarity Clear (Clear); Urine Urobilinogen 4 mg/dl (Normal); Urine pH 6.5 (5.0 - 8.0)
[2022-12-06 21:42] LABS: ALB/GLOB Ratio 0.7 RATIO (0.9-2.4); AST(SGOT) 13 U/L (15-37); Alanine Aminotransfer ALT/SGPT 14 U/L (13-56); Albumin, Serum 2.8 g/dL (3.2-5.0); Alkaline Phosphatase 62 U/L (45-117); Anion Gap 8 (5-15); BUN 5 mg/dL (7-18); BUN/Creat Ratio 7.7 RATIO (10-20); Calcium,Total 8.6 mg/dL (8.5-10.1); Chloride 107 mmol/L (98-107); Creatinine, Serum 0.65 mg/dL (0.55-1.02); EST Glomerular Filtration Rate 118 mL/min (>60); Est Glom Filt Rate - Afr Amer 143 mL/min (>60); Estimated Creatinine Clearance 129.78 ml/min; Globulin 3.9 g/dL (2.2-4.2); Glucose 103 mg/dL (74-106); Potassium 3.5 mmol/L (3.5-5.1); Protein, Total 6.7 g/dL (6.4-8.2); Sodium Level 139 mmol/L (136-145)
[2022-12-06 21:46] LABS: Absolute Lymphocyte Count 2.34 X10^3/uL (0.83-4.51); Absolute Neutrophil Count 10.7 X10^3/uL (2.0-7.7); Basophil# 0.04 X10^3/uL; Basophil% 0.3 % (0-1); Eosinophil# 0.19 X10^3/uL; Eosinophils% 1.3 % (0-5); Hematocrit 36.5 % (37-47); Hemoglobin 13.1 g/dL (12.0-15.0); Lymphocyte # 2.34 X10^3/ul (0.83-4.51); Lymphocyte % 16.5 % (19-41); Mean Corp Hgb Conc 35.9 g/dL (32-36); Mean Corpuscular Hgb 32.2 pg (27.0-32.0); Mean Corpuscular Volume 89.7 fL (81-99); Mean Platelet Vol. 9.7 fl (6.2-12.0); Monocyte# 0.86 X10^3/uL; Monocyte% 6.1 % (0-10); NRBC Flagged by Analyzer 0 % (0-5); Neutrophil # 10.68 X10^3/uL (2.7-7.7); Neutrophil % 75.3 % (47-70); Platelet Count 325 K/mm3 (150-450); RBC Distribution Width CV 12.4 % (11.6-14.6); RBC Distribution Width SD 40.8 fl (35.1-43.9); Red Blood Count 4.07 M/mm3 (4.2-5.4); White Blood Count 14.2 K/mm3 (4.4-11.0)
[2022-12-06] MEDS: Lactated Ringers 1,000 ML 125 ML IV (22:04)
[2022-12-06 23:01] LABS: Group B Strep DNA By PCR Negative (Negative); Internal Control PASS; Probe Check PASS; Specimen Processing Control PASS
[2022-12-07 01:25] VITALS: BP 117/70; PULSE 86
[2022-12-07] MEDS: NIFEdipine 10 MG Capsule PO ×2 (01:28→05:45)
[2022-12-07] MEDS: Lactated Ringers 1,000 ML 125 ML IV (05:46)
[2022-12-07 05:48] VITALS: BP 93/55; BP 97/51; PULSE 75
[2022-12-07 05:49] VITALS: PULSE 79; O2SAT 98
[2022-12-07 08:27] VITALS: BP 102/57; PULSE 87; TEMP 36.5; O2SAT 97
--- NOTE | 2022-12-07 09:04 | PCM.PN.OB ---
Subjective Subjective patient is awake and sitting up in bed. She states that she slept on and off last night but feels a lot better and contractions have stopped with the procardia, rest, and fluids. She would like to go home if possible. Objective Data Objective Data Vital Signs: Vital Signs Temp Pulse BP Pulse Ox 97.7 F L 87 102/57 L 97 12/07/22 08:27 12/07/22 08:27 12/07/22 08:27 12/07/22 08:27 Weight: 201 lb 6.4 oz Body Mass Index (BMI) 31.5 Intake & Output: Intake and Output for Last 24 Hours 12/05/22 12/06/22 12/07/22 23:59 23:59 23:59 Intake Total 1000 / 1000 962.5 / 962.5 Balance 1000 / 1000 962.5 / 962.5 Lab / Micro Data Result Diagrams: 12/06/22 20:45 12/06/22 20:45 Labs: Laboratory Results - last 24 hr 12/06/22 20:45: Blood Type A POSITIVE, Antibody Screen NEGATIVE 12/06/22 20:45: WBC 14.2 H, RBC 4.07 L, Hgb 13.1, Hct 36.5 L, MCV 89.7, MCH 32.2 H, MCHC 35.9, RDW Std Deviation 40.8, RDW Coeff of Semaj 12.4, Plt Count 325, MPV 9.7, Immature Gran % (Auto) 0.500, Neut % (Auto) 75.3 H, Lymph % (Auto) 16.5 L, Parke % (Auto) 6.1, Eos % (Auto) 1.3, Baso % (Auto) 0.3, Absolute Neuts (auto) 10.7 H, Absolute Lymphs (auto) 2.34, Nucleated RBC % 0 12/06/22 20:45: Urine Color Yellow, Urine Clarity Clear, Urine pH 6.5, Ur Specific [place] 1.010, Urine Protein 15 H, Urine Glucose (UA) 100 H, Urine Ketones Negative, Urine Occult Blood Negative, Urine Nitrite Negative, Urine Bilirubin Negative, Urine Urobilinogen 4 H, Ur Leukocyte Esterase 25 H, Urine RBC 0 SEEN, Urine WBC 0 SEEN, Ur Squamous Epith Cells 0 SEEN, Urine Bacteria 0 SEEN, Urine Mucus 0 SEEN 12/06/22 20:45: Sodium 139, Potassium 3.5, Chloride 107, Carbon Dioxide 24.0, Anion Gap 8, BUN 5 L, Creatinine 0.65, Estim Creat Clear Calc 129.78, Est GFR (MDRD) Af Amer 143, Est GFR (MDRD) Non-Af 118, BUN/Creatinine Ratio 7.7 L, Glucose 103, Calcium 8.6, Total Bilirubin 0.30, AST 13 L, ALT 14, Alkaline Phosphatase 62, Total Protein 6.7, Albumin 2.8 L, Globulin 3.9, Albumin/Globulin Ratio 0.7 L 12/06/22 21:30: Group B Strep DNA Negative, Specimen Comment Not Reportable Physical Exam Const alert, oriented x3, no apparent distress and healthy appearing General Appearance: cooperative; Negative for anxious Resp normal respiratory effort Effort and Inspection: able to speak in complete sentences Cardio regular rate GI soft to palpation and non-tender Inspection: gravid Palpation: soft external exam normal OB / External & Speculum: other cs still /-3 (unchanged from prior exam yesterday) Back/Spine no CVA tenderness Extremity normal to inspection, full ROM and no clubbing, cyanosis or edema General Extremity: Negative for calf tenderness or edema Skin Lesions: no lesions Rashes: no rashes Psych mental status grossly normal NST FHR Rate Baby A Baseline: 150 Variability:: Moderate Accelerations:: 15 x 15 and 10 x 10 Decelerations:: None NST Reactive:: Yes FHR Category:: Category I Uterine Activity:: no contractions currently, irritability from time to time. Assessment & Plan (1) Threatened labor, antepartum: (2) Abnormal glucose affecting : COMMENT: nl 3 hr gtt (3) COVID-19 affecting childbirth: COMMENT: + late September. Taking baby ASA daily, 32 and 36 wk US, 11/26/22 nl growth (4) UTI symptoms: COMMENT: neg urine culture (5) Anxiety and depression: COMMENT: celexa increased to 40 mg encouraged counseling/improved (6) History of labor: COMMENT: delivered at 32 weeks and 34 weeks in prior pregnancies, plan sushma injections. US for CL E/O week, 09/09 CL 31.4mm. 10/02/22 Sto[ Sushma injections due to SE. Start progesterone vaginally at hs. (7) Supervision of high risk , antepartum: COMMENT: PRR , ELIJAH 01/18/23 girl, PC [place] 2yo & [place] 2yo Spouse Dagoberto (8) : QUALIFIERS: Weeks of gestation: 32 weeks Qualified Code(s): Z3A.32 - 32 weeks gestation of COMMENT: anatomy nl, NIPT low risk, declined Carrier testing,10/31 abnormal 1 HR GCT, 3 HR GTT nl (9) Thyromegaly: COMMENT: labs and us nl PLAN: Plan patient wishes to go home and return if pain comes back. she is given instructions for pelvic rest. continue procardia every 4 hours at least until 2nd dose of celestone is on board. She will return tonight for her second dose between 7 pm and 9 pm. Charges/Coding Multi Select Codes Visit Charges Visit Charges: 47367 Subs Hosp L3
== END 2022-12-07 08:50 | disposition home or self-care (01) ==
LOC: WPOUT 20:07 → WP 20:08
PROVIDERS: PCP Family Medicine; Referring Provider Obstetrics & Gynecology; Visit Provider Obstetrics & Gynecology
DX: O60.03 Preterm labor without delivery, third trimester (principal); O98.513 Other viral diseases complicating pregnancy, third trimester; O99.343 Other mental disorders complicating pregnancy, third trimester; O99.283 Endocrine, nutritional and metabolic diseases complicating pregnancy, third trimester; O99.891 Other specified diseases and conditions complicating pregnancy; O99.810 Abnormal glucose complicating pregnancy; U07.1 COVID-19; F32.A Depression, unspecified; F41.9 Anxiety disorder, unspecified; R39.9 Unspecified symptoms and signs involving the genitourinary system; E01.0 Iodine-deficiency related diffuse (endemic) goiter; Z3A.32 32 weeks gestation of pregnancy; Z79.82 Long term (current) use of aspirin
CPT/HCPCS: 96375; 96365; 96366 ×13; 36415; 59025; 59050; 80053; 81001; 85025; 86850; 86900; 86901; 87081; 87086; 87088; 87653; 96372; 99221; J7120; G0378; J0702; J2405

== ENCOUNTER 2022-12-07 19:54 | Outpatient (CLI) | payer MEDICAID, SELFPAY ==
[2022-12-07 20:12] VITALS: BMI 31.6
[2022-12-07] MEDS: Betamethasone/Betamethasone 30 MG/5 ML Vial 12 MG IM (20:44)
--- NOTE | 2022-12-07 23:59 | PCM.PN.BLA ---
Progress Note patient presents for repeat dose of celestone only. Celestone 12.5 mg IM was ordered for lung maturity. patient was then discharged to home
== END 2022-12-07 20:50 | disposition home or self-care (01) ==
LOC: WPOUT 19:59 → WP 20:12
PROVIDERS: PCP Family Medicine; Referring Provider Obstetrics & Gynecology; Visit Provider Obstetrics & Gynecology
DX: O09.213 Supervision of pregnancy with history of pre-term labor, third trimester (principal); Z79.82 Long term (current) use of aspirin; Z3A.32 32 weeks gestation of pregnancy
CPT/HCPCS: 96372; 99221; G0378; J0702

== ENCOUNTER 2022-12-19 23:25 | Inpatient (IN) | payer MEDICAID, SELFPAY ==
[2022-12-19 20:56] VITALS: BP 133/75
[2022-12-19 20:57] VITALS: PULSE 105; TEMP 36.8; O2SAT 98
[2022-12-19 21:00] VITALS: BMI 31.9
[2022-12-19] MEDS: Lactated Ringers 1,000 ML 999 ML IV (21:35)
[2022-12-19 21:50] LABS: Absolute Lymphocyte Count 2.43 X10^3/uL (0.83-4.51); Absolute Neutrophil Count 8.3 X10^3/uL (2.0-7.7); Basophil# 0.04 X10^3/uL; Basophil% 0.3 % (0-1); Eosinophils% 0.9 % (0-5); Hematocrit 36.3 % (37-47); Hemoglobin 12.7 g/dL (12.0-15.0); Lymphocyte # 2.43 X10^3/ul (0.83-4.51); Lymphocyte % 20.9 % (19-41); Mean Corpuscular Hgb 31.9 pg (27.0-32.0); Mean Corpuscular Volume 91.2 fL (81-99); Mean Platelet Vol. 9.7 fl (6.2-12.0); Monocyte# 0.72 X10^3/uL; Monocyte% 6.2 % (0-10); NRBC Flagged by Analyzer 0 % (0-5); Neutrophil # 8.28 X10^3/uL (2.7-7.7); Neutrophil % 71.2 % (47-70); Platelet Count 315 K/mm3 (150-450); RBC Distribution Width CV 12.1 % (11.6-14.6); Red Blood Count 3.98 M/mm3 (4.2-5.4); White Blood Count 11.6 K/mm3 (4.4-11.0)
[2022-12-19] MEDS: Lactated Ringers 1,000 ML 200 ML IV (23:48)
[2022-12-19] MEDS: LACTATED RINGERS 500 ML 999 ML IV (23:48)
[2022-12-20] VITALS (59 sets, daily range): BP systolic 106–128; BP diastolic 63–84; PULSE 70–120; RESP 16–18; TEMP 36.4–37.3; O2SAT 79–100
--- NOTE | 2022-12-20 | PLAC_PTH ---
PATIENT: GLORY HARRELL LOC: WP U#:[id number] AGE/SX: 22/F ROOM: WP009 RE12/19/[address]: Dr. Rosalba Matta MD : 2000 BED: 1 DIS: 12/21/2022 SPEC #: [id number] RECD: 12/20/22 05:56 STATUS: KRAIG RERichie #: [id number] NIDA: 12/20/22 00:[address]: Rosalba Matta DEPT: SURGICAL PATHOLOGY RECD BY: Kathy Stephens ENTERED: 12/20/22 09:12 SP TYPE: PLACENTA OTHR DR: Dr. Yovnany Navarro MD Tissues: Placenta, NOS Procedures: Surgery Specimen Level V HEADER OPERATION: Vaginal delivery PRE-OP DIAGNOSIS: Labor TISSUE SUBMITTED: Placenta MICROSCOPIC DIAGNOSIS Placenta: Placental disc - third trimester placenta (455 gm). - Focal area of intraparenchymal hemorrhage (1.5 cm in greatest dimension). Membranes - no pathologic diagnosis. Umbilical cord - three blood vessels and no pathologic diagnosis. SJ:maryjane 12/24/2022 MICROSCOPIC DESCRIPTION Slides are reviewed. GROSS DESCRIPTION SPECIMEN: PLACENTA / CLINICAL INFORMATION: A. Weight: 2.905 kg B. Gestational Age: 35 weeks C. Sex: Female PLACENTAL WEIGHT (POST FIXATION): 455 gm PLACENTAL DIMENSIONS: 17 x 16 x 3 cm PLACENTAL SHAPE: Usual ovoid PLACENTAL WEIGHT FOR GESTATIONAL AGE: Within 10-99th percentile MEMBRANES - Present A. Insertion: Marginal B. Site of rupture from edge: At edge of placental disc C. Color of membrane: Graves-robertson D. Abnormalities: None UMBILICAL CORD - Present A. Color: Graves-robertson B. Insertion: Near central C. Length: 43 cm D. Diameter: 1.5 cm E. Number of vessels: Three F. Abnormalities: None PLACENTAL DISC - Present A. Color of surface: Graves-robertson B. surface abnormalities: None C. Maternal cotyledons: Intact with minimal tears D. Attached retro placental clot: No clot E. Cut surface: Dark red and spongy F. Lesions: Serial sections reveal a firm, graves-white lesion measuring 1.5 x 1 cm near the placental floor. G. Separate clot: 7 x 3 x 0.8 cm SECTIONS SUBMITTED: 1. Umbilical cord ( end notched) 2. Umbilical cord, placental end 3. Membrane roll 4. Placental disc, and maternal surfaces, lesion 5. Placental disc, and maternal surfaces 6. Placental disc, and maternal surfaces AM:maryjane 12/23/2022 TC:5 CPT: 37723
[2022-12-20] MEDS: fentaNYL-bupivacaine (epidural) 100 ML BAG EPIDURAL (00:53)
[2022-12-20] MEDS: Ondansetron 4 MG/2 ML Vial IV (00:56)
[2022-12-20] MEDS: 0.9% Saline Lock 10 ML Syringe IV (00:56)
--- NOTE | 2022-12-20 02:46 | HP.PCM.OB_ITS ---
HPI - General General Date of Admission: 12/19/22 HPI Narrative GLORY HARRELL, is a 22 F who presents in labor made change to 3-4 cm and then 5 cm. she denies any vb or lof admits good fm. she has had steroid injections twice this for PTL. Maternal Data Information ELIJAH Calculator Estimated Delivery Date Method Current WG Current Estimate 01/18/23 LMP (Certain) 35w 6d [facility] Medical History (Updated 12/20/22 @ 02:[address] Rosalba Matta MD) Anxiety Family history of hearing loss at age younger than 7 years History of pre-term labor depression Home Medications PNV no.63-iron,carbonyl 27mg-folic acid 800 mcg-dha 200 mg capsule 1 cap PO DAILY 06/12/22 [History Last Taken 12/19/22 19:00] Pepcid 1 tab PO/SL DAILY Check with primary doctor 12/06/22 [History Last Taken 12/19/22 19:00] aspirin 81 mg capsule 81 mg PO DAILY 12/06/22 [History Last Taken 12/19/22 19:00] progesterone micronized 100 mg vaginal insert (Endometrin) 2 insert vaginal DAILY 12/06/22 [History Last Taken 12/19/22 19:00] fluoxetine 40 mg capsule (Prozac) 40 mg PO DAILY anx/dep 12/19/22 [History Last Taken 12/19/22] Allergy/AdvReac Type Severity Reaction Status Date / Time No Known Allergies Allergy Verified 12/18/22 09:03 Surgical History History of tonsillectomy Social History adopted: No household members: spouse and children housing: house number of children: 2 current occupational status: unemployed 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 current occupational exposures/hazards: No pets and animals: Yes pets and animals: dog(s) history of recent travel: No sexually active: Yes Smoking Status: Never smoker alcohol intake: never substance use type: does not use well-balanced diet: daily or most days caffeine: Yes (occasional) Type: carbonated beverages eating out: 1-3 times/week what type of physical activity do you participate in: walking frequency: 3-4 times per week duration: 45-60 minutes/day charlie/methodist: None seatbelt use: always do you feel safe at home: Yes additional social history: Jose- Works for [employer] 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 Date Name GA/Weeks Outcome Route Bth Weight Infant Gen Labor Lgth Anesthesia Del Locatn Provider FOB 05/12/18 adaline 32 live - 4lb 7 oz Female s tarted at 20 weeks none [facility] 09/08/19 Joiner 34 live - 6.10 Female [facility] Dr. Mika Arenas Delivery Date: 09/08/19 Last Updated by: Delia Street transferred to [facility] Visit Details Expected Delivery Route/Plan Labor Preferences- CB/BF classes: done labor support person:jose labor intervention preferences: [] pain management options preferred: breathing cut cord/dad catch: yes : yes PP control planned: discussed discussed possible routes of delivery and associated risks: [] special requests: [] Plans Covid status: declined Flu vaccine: declined Tdap vaccine: given Rhogam: n/a LARC form signed: yes Problem list reviewed and updated with the most current plan of care details and appropriate orders placed. Relevant counseling for the gestational age provided. Continue routine care and follow up unless otherwise noted in visit notes/problem list details OB Flowsheet Initial Weight: Not Recorded Date -?-?-?-?-?-?-?-?-?-?-?-?- EGA Weight BP Urine Prot -?-?-?-?-?-?-?-?-?-?-?-?- Glucose FHR FuHt Pres Dilation -?-?-?-?-?-?-?-?-?-?-?-?- Effaced St Visit Note 06/17/22 -?-?-?-?-?-?-?-?-?-?-?-?- 9w 2d 186 lb 100/80 -?-?-?-?-?-?-?-?-?-?-?-?- 160 -?-?-?-?-?-?-?-?-?-?-?-?- CRL 2 cm cons wi th lMP 07/17/22 -?-?-?-?-?-?-?-?-?-?-?-?- 13w 4d 183 lb 6 oz 120/70 Nega tive -?-?-?-?-?-?-?-?-?-?-?-?- Negative 130 -?-?-?-?-?-?-?-?-?-?-?-?- JV- pt states th at libido is declined since starting 40 mg of the antidepressant. also wonders if sushma is going to be given on time (16 weeks) no cramping or spotting. will dec dose to 20 and find out progress on sushma approval. 08/13/22 -?-?-?-?-?-?-?-?-?-?-?-?- 17w 3d 186 lb 8 oz 116/76 Nega tive -?-?-?-?-?-?-?-?-?-?-?-?- Negative 143 -?-?-?-?-?-?-?-?-?-?-?-?- MH-No VB, crampi ng. Feeling flutters. Will get CL US [facility] next week. Anatomy US with MFM 08/2309/13/22 -?-?-?-?-?-?-?-?-?-?-?-?- 21w 6d 195 lb 8 oz 108/72 Nega tive -?-?-?-?-?-?-?-?-?-?-?-?- 1000 g/dL 140 21 -?-?-?-?-?-?-?-?-?-?-?-?- LC- no vb,crampi ng. normal anatomy scan. cont with q2week CL. last 34.9mm. on sushma. elevated urine glucose. finger glucose=9 3. has not eaten yet today. 10/11/22 -?-?-?-?-?-?-?-?-?-?-?-?- 25w 6d 198 lb 112/78 Negative -?-?-?-?-?-?-?-?-?-?-?-?- Negative 145 26 -?-?-?-?-?-?-?-?-?-?-?-?- SM- no vb lof go od fm no regular ctx 10/31/22 -?-?-?-?-?-?-?-?-?-?-?-?- 28w 5d 194 lb 4 oz 116/72 Nega tive -?-?-?-?-?-?-?-?-?-?-?-?- Negative 142 28 -?-?-?-?-?-?-?-?-?-?-?-?- MH-No VB, LOF. G ood FM. Had Covid 2 wks ago. Start baby ASA daily and growth US 32 and 36 wk. 28 wk labs, tdap, larc 11/14/22 -?-?-?-?-?-?-?-?-?-?-?-?- 30w 5d 197 lb 100/65 -?-?-?-?-?-?-?-?-?-?-?-?- 145 30 -?-?-?-?-?-?-?-?-?-?-?-?- JV- no lof, vagi nal bleeding, or dec fm. no complaints today. normal 3 hr. concerns that patient filled her urine cup with water. is taking baby asa for covid 2 weeks ago 11/29/22 -?-?-?-?-?-?-?-?-?-?-?-?- 32w 6d 201 lb 109/77 Negative -?-?-?-?-?-?-?-?-?-?-?-?- Negative 145 33 -?-?-?-?-?-?-?-?-?-?-?-?- Sm- no vb lof go od fm n oregular ctx 12/18/22 -?-?-?-?-?-?-?-?-?-?-?-?- 35w 4d 204 lb 4 oz 103/69 Nega tive -?-?-?-?-?-?-?-?-?-?-?-?- Negative 147 34 -?-?-?-?-?-?-?-?-?-?-?-?- JV- no lof, vagi nal bleeding, or dec fm. continue vaginal progesterone through 36 weeks. 12/19/22 -?-?-?-?-?-?-?-?-?-?-?-?- 35w 5d 204 lb 3.2 oz 133/75 128/84 120/79 121/73 113/63 114/64 121/70 115/66 -?-?-?-?-?-?-?-?-?-?-?-?- -?-?-?-?-?-?-?-?-?-?-?-?- NST FHR Rate Baby A Baseline: 140 Variability:: Moderate Accelerations:: 15 x 15 Decelerations:: None NST Reactive:: Yes FHR Category:: Category I Uterine Activity:: q3-5 ROS Constitutional Constitutional: Reports systems reviewed and no addt'l complaints, except as documented ENT HEENT: Reports systems reviewed and no addt'l complaints, except as documented Cardiovascular Cardiovascular: Reports systems reviewed and no addt'l complaints, except as documented Respiratory/Chest Respiratory/Chest: Reports systems reviewed and no addt'l complaints, except as documented Gastrointestinal Gastrointestinal: Reports systems reviewed and no addt'l complaints, except as documented and nausea; Denies abdominal pain Genitourinary Genitourinary: Reports systems reviewed and no addt'l complaints, except as documented, contractions Details: present and frequency (regular ) and movement Details: present Musculoskeletal Musculoskeletal: Reports systems reviewed and no addt'l complaints, except as documented Integumentary Integumentary: Reports as per HPI Neurologic Neurologic: Reports systems reviewed and no addt'l complaints, except as documented Endocrine Endocrinology: Reports systems reviewed and no addt'l complaints, except as documented Vital Signs Vital Signs Vital Signs: 12/19/22 20:56 12/19/22 20:57 12/19/22 20:57 Temperature Temperature Source Pulse Rate 105 H Blood Pressure 133/75 H BP Systolic 133 BP Diastolic 75 Pulse Ox 98 12/19/22 20:57 12/19/22 20:57 12/20/22 00:22 Temperature 98.2 F Temperature Source Temporal Pulse Rate 94 Blood Pressure BP Systolic BP Diastolic Pulse Ox 12/20/22 00:22 12/20/22 00:27 12/20/22 00:27 Temperature Temperature Source Pulse Rate 113 H Blood Pressure BP Systolic BP Diastolic Pulse Ox 99 97 12/20/22 00:32 12/20/22 00:32 12/20/22 00:37 Temperature Temperature Source Pulse Rate 104 H 97 Blood Pressure BP Systolic BP Diastolic Pulse Ox 99 12/20/22 00:37 12/20/22 00:39 12/20/22 00:39 Temperature Temperature Source Pulse Rate 91 Blood Pressure 128/84 H BP Systolic 128 BP Diastolic 84 Pulse Ox 99 12/20/22 00:42 12/20/22 00:42 12/20/22 00:47 Temperature Temperature Source Pulse Rate 93 88 Blood Pressure BP Systolic BP Diastolic Pulse Ox 99 12/20/22 00:47 12/20/22 00:52 12/20/22 00:52 Temperature Temperature Source Pulse Rate 103 H Blood Pressure BP Systolic BP Diastolic Pulse Ox 99 98 12/20/22 00:53 12/20/22 00:53 12/20/22 00:55 Temperature Temperature Source Pulse Rate 120 H Blood Pressure 120/79 121/73 H BP Systolic 120 121 BP Diastolic 79 73 Pulse Ox 12/20/22 00:55 12/20/22 00:57 12/20/22 00:57 Temperature Temperature Source Pulse Rate 103 H 101 H Blood Pressure BP Systolic BP Diastolic Pulse Ox 99 12/20/22 01:02 12/20/22 01:02 12/20/22 01:02 Temperature Temperature Source Temporal Pulse Rate 101 H Blood Pressure BP Systolic BP Diastolic Pulse Ox 98 12/20/22 01:02 12/20/22 01:07 12/20/22 01:07 Temperature 98.4 F Temperature Source Pulse Rate 108 H Blood Pressure BP Systolic BP Diastolic Pulse Ox 99 12/20/22 01:08 12/20/22 01:08 12/20/22 01:12 Temperature Temperature Source Pulse Rate 90 94 Blood Pressure 113/63 BP Systolic 113 BP Diastolic 63 Pulse Ox 12/20/22 01:12 12/20/22 01:17 12/20/22 01:17 Temperature Temperature Source Pulse Rate 111 H Blood Pressure BP Systolic BP Diastolic Pulse Ox 97 99 12/20/22 01:22 12/20/22 01:22 12/20/22 01:22 Temperature Temperature Source Pulse Rate 90 Blood Pressure 114/64 BP Systolic 114 BP Diastolic 64 Pulse Ox 98 12/20/22 01:27 12/20/22 01:27 12/20/22 01:32 Temperature Temperature Source Pulse Rate 88 87 Blood Pressure BP Systolic BP Diastolic Pulse Ox 98 12/20/22 01:32 12/20/22 02:05 12/20/22 02:05 Temperature Temperature Source Pulse Rate 86 Blood Pressure 121/70 H BP Systolic 121 BP Diastolic 70 Pulse Ox 97 12/20/22 02:06 12/20/22 02:06 12/20/22 02:21 Temperature Temperature Source Pulse Rate 83 93 Blood Pressure 115/66 BP Systolic 115 BP Diastolic 66 Pulse Ox 12/20/22 02:21 12/20/22 02:26 12/20/22 02:26 Temperature Temperature Source Pulse Rate 93 Blood Pressure BP Systolic BP Diastolic Pulse Ox 98 98 12/20/22 02:31 12/20/22 02:31 Temperature Temperature Source Pulse Rate 85 Blood Pressure BP Systolic BP Diastolic Pulse Ox 99 Weight Weight: 204 lb 3.2 oz Body Mass Index (BMI) 31.9 Physical Exam Const alert, oriented x3 and healthy appearing Constitutional Narrative: uncomfortable with contractions HEENT normocephalic and moist oral mucous membranes Head and Scalp: atraumatic Neck full ROM, no lymphadenopathy, supple and thyroid normal General: trachea midline Thyroid: thyroid normal Lymph Lymphatic: no lymphadenopathy noted Chest inspection of chest normal Resp normal respiratory effort Cardio regular rate GI normal to inspection, nondistended, normoactive bowel sounds, soft to palpation and non-tender Inspection: gravid external exam normal Bimanual Exam - Vag & Uterus: uterus non-tender Manual OB Exam: estimated gestational size appropriate, presentation cephalic, dilated, effaced and station Extremity normal to inspection General Extremity: Negative for edema Skin no rashes or lesions noted Neuro deep tendon reflexes 2+ bilaterally Motor Exam: strength 5/5 throughout and clonus absent Psych mental status grossly normal Labs Labs Labs: Blood Type A POSITIVE Antibody Screen NEGATIVE Hct 36.3 % (37-47) L Hgb 12.7 g/dL (12.0-15.0) Obstetrics US Syphilis Total Ab Non-reactive Rubella IgG Antibody Reactive (Nonreactive) Hep Bs Antigen Non-Reactive (Nonreactive) Chlamydia DNA (KATEY) Negative (Negative) Neisseria gonorrhoeae DNA (KATEY) Negative (Negative) HIV 1&2 Antibody Non-Reactive (Nonreactive) Glucose 1 Hr 50 gm 154 mg/dL (70-140) H Group B Strep DNA Negative (Negative) Rhogam given: No Miscellaneous Test Assessment & Plan (1) Abnormal glucose affecting : COMMENT: nl 3 hr gtt (2) COVID-19 affecting childbirth: COMMENT: + late September. Taking baby ASA daily, 32 and 36 wk US, 11/26/22 nl growth (3) UTI symptoms: COMMENT: neg urine culture (4) Anxiety and depression: COMMENT: celexa increased to 40 mg encouraged counseling/improved (5) History of labor: COMMENT: delivered at 32 weeks and 34 weeks in prior pregnancies, plan sushma injections. US for CL E/O week, 09/09 CL 31.4mm. 10/02/22 Sto[ Sushma injections due to SE. Start progesterone vaginally at hs. (6) Supervision of high risk , antepartum: COMMENT: PRR , ELIJAH 01/18/23 girl, PC Rachel 4yo & Joiner 2yo Spouse Jose (7) : QUALIFIERS: Weeks of gestation: 35 weeks Qualified Code(s): Z3A.35 - 35 weeks gestation of COMMENT: anatomy nl, NIPT low risk, declined Carrier testing,10/31 abnormal 1 HR GCT, 3 HR GTT nl (8) Thyromegaly: COMMENT: labs and us nl (9) labor: PLAN: Plan Patient presents IAL, plan expectant management for , arom clear fluid at 6 cm Pain management: epidural. GBS negative. Management of any complications: PTL- s/p bmz x 2 courses previously I have reviewed the [facility] and made any clinically relevant updates.
[2022-12-20] MEDS: Oxytocin 10 UNITS/ML Vial IM (03:47)
[2022-12-20] MEDS: Methylergonovine 0.2 MG/ML Ampul IM (04:27)
[2022-12-20] MEDS: Oxytocin 15 Units/NS 250ml 15 UNITS/250 ML IV.SOLN 334 UNITS IV (04:27)
--- NOTE | 2022-12-20 04:40 | EX.PCM.OBRPT ---
Maternal Data Information ELIJAH Calculator Estimated Delivery Date Method Current Current Estimate 01/18/23 LMP (Certain) 35w 6d Vaginal Delivery Operative Information Date of Procedure: 12/20/22 Pre-Operative Diagnosis: IAL Post-Operative Diagnosis: same Surgery / Procedure Performed: Spontaneous Vaginal Delivery Type of Anesthesia: Epidural Special Medications: none Estimated Blood Loss: 750 Fluids Replaced: crystalloid Findings Description of Procedure: Patient began pushing and delivered the head in the ABRIL presentation. The head was delivered atraumatically . The anterior and posterior shoulders delivered without complication followed by the rest of the infant and the was placed on the maternal abdomen. Delayed cord clamping was employed for approximately 60 seconds. Cord was clamped and cut and gentle traction was applied to the cord and the placenta delivered spontaneously immediately following it was noted to be intact with three-vessel cord. The perineum and vagina were inspected and noted to have no laceration. EBL was 700 with mild delayed atony with increased blood loss no hemorrhage, pitocin and methergine given. Patient and tolerated delivery well. Presentation: ABRIL Amniotic Membrane Rupture Type: Artificial Amniotic Fluid Description: Clear Placental Delivery Description: Spontaneous Placenta Disposition: [facility] Cord Vessel Description: 3 Vessels Cord Entanglement: None Delayed Cord Clamping: Yes Post Vaginal Delivery Medications Given After Delivery: IV Pitocin Episiotomy Description: None Laceration: None Complication Complications: None Procedures Urinary/Genital [id number]: [id number] Vaginal Delivery+ Care([facility])
--- NOTE | 2022-12-20 04:42 | DCINST_ITS ---
Discharge Instructions Diet Discharge Diet: No restrictions Activity Discharge Activity: Return to Normal Activity, May Drive, May Shower and May Take a Tub Bath (in 4 weeks) May resume sexual activity in: 6-8 weeks (after seen by OB provider) Weight Bearing Status: Full weight bearing Lifting Restrictions: none Dressing / Incision Call your doctor if you observe: Fever of 101 or Higher, Inability to urinate, Using more than 1 pad per hour (for more than 2 hours in a row or more), Shortness of breath, Dizziness, Chest pain and - (headache not controlled with tylenol, change in vision) Follow Up Care When: in 6 weeks for visit, call the office to make the appointment. If you had elevated blood pressures call the office to be seen within 1 week. Test Results: Test results from this visit will be discussed in further detail at your follow- up appointment, if applicable. Discharge Plan Admission Admit Date/Time: 12/19/22 23:25 Attending Provider: Rosalba Matta Primary Care Provider: Yovanny Navarro Discharge Orders/Prescriptions Prescriptions: No Action PNV no.63-iron,upzoqdng-OD-ufq 27 mg iron- 800 mcg-200 mg capsule 1 cap PO DAILY Endometrin 100 mg Insert 2 insert VAGINAL DAILY aspirin 81 mg Capsule 81 mg PO DAILY Pepcid 1 tab PO/SL DAILY fluoxetine [Prozac] 40 mg Capsule 40 mg PO DAILY Referrals / Follow Up: Yovanny Navarro MD [Primary Care Provider] - Disposition Disposition (needs filled in before D/C Order can be placed): Home, Self Care
[2022-12-20 07:56] LABS: Pathology Specimen OB SEE PATHOLOGY REPORT
--- NOTE | 2022-12-20 10:33 | NURSING ---
epidural cath removed with tip intact. Pt tolerated procedure well
[2022-12-20] MEDS: Naproxen 500 MG Tablet PO (12:15)
--- NOTE | 2022-12-20 17:06 | CASEMGMT ---
ANKUR Note Referral Source: WP ANKUR Garcia Referral Reason: History of anxiety. Currently on Prozac SW met with MOB in the room. At the end of the assessment the FOB came into the room and MOB gave permission for this screen writer to speak in his presence. MOB was doing skin to skin and smiling and appeared to be appropriately bonding with the nb. Mom: Alma Gupta PNC: Dr. 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 Linked with Board of for services. Had HMG in the past. Harper, age 3 Housing: MOB, FOB and the children reside in a house. Adequate for family. Transportation: MOB reports that she has a car and is able to drive. Supplies: MOB reports that the nb has a carseat, clothes, diapers, bassinet and crib. Support: MOB reports that her has paternity leave.MOB said that her parents and the FOB?s grandfather and aunt and uncle, who are all local, will be a support. Education Level: Patient graduated from high school. No learning issues. MOB reports she went to college but did not graduate. Employment: MOB is not employed outside the home Agency Involvement: MOB reports [place] insurance and WIC. MOB reports they had HMG in the past for their oldest daughter. MOB denied legal issues. MOB said that 3 ? years ago CPS was called on them falsely and the case was closed. MOB reports she went to counseling 4 years ago after the of her oldest child for support. [facility] Patient is currently linked with psychiatrist at [facility]. FOB: Dagoberto Time Together: Together 6 years and for 5 years Involved at : Yes Employed: [employer] in [place] and [employer]. FOB will have one week of paternity leave Other Children: FOB is father to MOB?s other 2 children, Rachel and Harper FOB MH/ AOD/DV : Denied by MOB Maternal MH History: MOB reports that after her daughter was born prematurely and in NICU and diagnosed with developmental disabilities she went [facility] a [facility]. SHYANNE went to counseling 4 years ago. SHYANNE is currently linked with psychiatrist at [facility]. MOB ?said that after the of her first child she had ?severe PPD? and was prescribed Zoloft. MOB said that she was prescribed Prozac after her 2nd child and that works well for her. SHYANNE plans to continue to take Prozac. SHYANNE said that she generally sees her psychiatrist every 3-4 months but ?he is letting my OB handle it?. MOB denied any past or current SI/HI. MOB denied any psychiatric hospitalization. MOB is bright and reactive when speaking to this screen writer. MOB and FOB were educated on Shaken Baby Syndrome, PPD and Safe Sleeping. MOB reports no alcohol or drug use. MOB is not a smoker. SW spoke to MOB?s RN Anne-Marie who reported that SHYANNE is doing well and she has no concerns regarding the MOB or NB. Plan: Home at discharge Carmelina BRAVO
--- NOTE | 2022-12-20 17:08 | CM.ED ---
SW went to enter that patient and nb are cleared for discharge but no order entered. However, social insurance analyst documented it on the whiteboard in nursing area at that patient and nb cleared for discharge. Carmelina BRAVO
[2022-12-20] MEDS: Acetaminophen 500 MG Tablet 1000 MG PO (20:16)
[2022-12-21 00:37] VITALS: BP 112/68; PULSE 76; RESP 16; TEMP 36.6
[2022-12-21 04:21] VITALS: BP 114/67; PULSE 74; RESP 16; TEMP 36.8
[2022-12-21 07:46] VITALS: BP 102/52; PULSE 86; RESP 16; TEMP 36.6
[2022-12-21 07:53] VITALS: BP 91/64; PULSE 81
--- NOTE | 2022-12-21 09:33 | PN.OBGYN_ITS ---
Subjective Subjective No overnight complaints. Denies depression Objective Data Objective Data Vital Signs: Vital Signs Temp Pulse Resp BP Pulse Ox O2 Del Method 97.8 F 81 16 91/64 96 Room Air 12/21/22 07:46 12/21/22 07:53 12/21/22 07:46 12/21/22 07:53 12/20/22 05:34 12/21/22 07:46 Oxygen Delivery Method Room Air Weight: 204 lb 3.2 oz Body Mass Index (BMI) 31.9 Intake & Output: Intake and Output for Last 24 Hours 12/19/22 12/20/22 12/21/22 23:59 23:59 23:59 Intake Total 1000 / 1000 1556.66 / 1556.66 Output Total 1279 / 1279 Balance 1000 / 1000 277.66 / 277.66 Lab / Micro Data Result Diagrams: 12/19/22 21:35 Physical Exam Const alert, oriented x3, no apparent distress, average body habitus, healthy appearing and well nourished HEENT normocephalic and moist oral mucous membranes Eyes PERRL Neck full ROM Resp normal respiratory effort, no retractions and no use of accessory muscles Extremity normal to inspection and full ROM Neuro moves all extremities and no focal motor deficits Psych mental status grossly normal, affect normal, speech normal and activity/motor behavior normal Assessment & Plan (1) Vaginal delivery: PLAN: day 1 status post delivery 35 weeks. Breast-feeding. Pain well controlled. Patient with history of depression, declines depression at this time educated patient on signs and symptoms of depression to call if has signs or symptoms. Okay to discharge home today if okay with paper sales representative
[2022-12-21] MEDS: Naproxen 500 MG Tablet PO (09:40)
--- NOTE | 2022-12-21 12:37 | NURSING ---
Patient reports that left eye is itchy and is draining green discharge.
[2022-12-21 13:46] VITALS: BP 108/56; PULSE 87; RESP 16; TEMP 36.6
--- NOTE | 2022-12-21 14:30 | NURSING ---
Report given to Berta Interiano RN who will assume care of this patient at this time.
[2022-12-24 13:27] LABS: Pathology Specimen OB SEE PATHOLOGY REPORT
== END 2022-12-21 17:05 | disposition home or self-care (01) | DRG 560 ==
LOC: WPOUT 23:25 → WP 23:25
PROVIDERS: Admitting Provider Obstetrics & Gynecology; PCP Family Medicine; Visit Provider Obstetrics & Gynecology
DX: O60.14X0 Preterm labor third trimester with preterm delivery third trimester, not applicable or unspecified (principal); Z37.0 Single live birth; O99.344 Other mental disorders complicating childbirth; E01.0 Iodine-deficiency related diffuse (endemic) goiter; F41.9 Anxiety disorder, unspecified; O62.2 Other uterine inertia; O99.284 Endocrine, nutritional and metabolic diseases complicating childbirth; F32.A Depression, unspecified; Z3A.35 35 weeks gestation of pregnancy; Z28.21 Immunization not carried out because of patient refusal; Z28.310 Unvaccinated for COVID-19; Z79.52 Long term (current) use of systemic steroids; Z86.16 Personal history of COVID-19
CPT/HCPCS: 59025; 59050; 85025; 86850; 86900; 86901; 88307; 99221; J7120; A4216; G0378; J2405

== ENCOUNTER 2023-08-24 11:55 | Emergency (ER) | payer MEDICAID, SELFPAY ==
[2023-08-24 11:56] VITALS: BP 116/78; PULSE 88; RESP 18; TEMP 35.8; O2SAT 100; BMI 34.2
--- NOTE | 2023-08-24 12:35 | CT_ITS ---
STUDY: CT ABDOMEN AND PELVIS WITH CONTRAST REASON FOR EXAM: Female, 23 years old. abdominal pain, diarrhea RADIATION DOSAGE (If Supplied By Facility): CTDIvol = ( 18.34 ) mGy, DLP = ( 1118.21 ) mGycm TECHNIQUE: Transaxial images were obtained from the dome of the diaphragm to the symphysis pubis without oral contrast. IV 100mL Isovue-370 was administered. Sagittal and coronal images were reconstructed. Individualized dose optimization techniques were used for this CT. COMPARISON: None. FINDINGS: The visualized lung bases are unremarkable. The visualized portions of the heart are within normal limits. Normal liver. Normal gallbladder and extrahepatic biliary system. Normal spleen. Normal pancreas. Normal bilateral adrenal glands. Normal right kidney. Normal left kidney. Normal visualized stomach. Normal small intestine. Normal colon. There is non-visualization of the appendix. Normal abdominal aorta. Normal inferior vena cava. Normal retroperitoneum. Normal urinary bladder. There is a small umbilical hernia containing fat. Normal osseous structures. CT/Abdomen/Pelvis W IV Cont ONLY IMPRESSION: Normal enhanced CT of the abdomen and pelvis. Electronically Signed: Charles Allen MD at 15:19 EDT ,
--- NOTE | 2023-08-24 12:35 | EX.ED.DYSGE1 ---
HPI History of Present Illness Chief Complaint: Abd Pain Informant: patient and spouse/S.O. Narrative Narrative: 23-year-old female presenting to the emergency room with chief complaint of abdominal pain and diarrhea. Patient states that 4 days ago she began to have upper abdominal discomfort as well as diarrhea. She describes the diarrhea as mucousy and greenish-brown. She notes 2 episodes per hour. She notes intermittent fevers up to 101. She has had occasional vomiting. She denies any prior abdominal surgeries. No history of inflammatory bowel disease. No recent antibiotics. 3 children and spouse at home are well. No changes in medications recently. [facility] Medical History Anxiety Contraceptive management Family history of hearing loss at age younger than 7 years History of pre-term labor Major depression depression PTSD (post-traumatic stress disorder) Vaginal delivery Home Medications propranolol 10 mg tablet 10 mg PO TID PRN anxiety #90 tabs 06/03/23 [Rx Last Taken Unknown] fluoxetine 60 mg tablet 60 mg PO DAILY #30 tabs 06/16/23 [Rx Last Taken Unknown] brexpiprazole 2 mg tablet 2 mg PO DAILY 30 days #30 tabs 08/07/23 [Rx Last Taken Unknown] Allergy/AdvReac Type Severity Reaction Status Date / Time No Known Allergies Allergy Verified 08/24/23 11:57 Surgical History History of tonsillectomy Social History adopted: No household members: spouse and children housing: house number of children: 3 current occupational status: unemployed 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 current occupational exposures/hazards: No pets and animals: Yes pets and animals: dog(s) history of recent travel: No sexually active: Yes Smoking Status: Never smoker alcohol intake: never substance use type: does not use well-balanced diet: daily or most days caffeine: Yes (occasional) Type: carbonated beverages eating out: 1-3 times/week what type of physical activity do you participate in: walking frequency: 3-4 times per week duration: 45-60 minutes/day charlie/hoahaoism: None seatbelt use: always do you feel safe at home: Yes additional social history: [employer]- Works for [employer] Patient is stay at home [employer] ED Constitutional Constitutional ED: Reports chills, fever(s) and sweats; Denies weight loss Eyes Eyes: Denies change in vision or diplopia ENT ENT ED: Denies ear pain, rhinorrhea or sore throat Cardiovascular Cardiovascular: Denies chest pain, orthopnea, palpitations or racing heartbeat Respiratory/Chest Respiratory/Chest: Denies cough, dyspnea or orthopnea Gastrointestinal Gastrointestinal: Reports abdominal pain, diarrhea, nausea and vomiting; Denies constipation Genitourinary Genitourinary ED: Denies dysuria, hematuria or urinary frequency Musculoskeletal Musculoskeletal: Denies arthralgias or myalgias Integumentary Denies abscess or rash Neurologic Neurologic: Denies headache(s) or weakness Psychiatric Psychiatric: Denies anxiety, depression, suicidal ideation or suicidal thoughts Endocrine Endocrinology: Denies polydipsia, polyphagia or polyuria Allergic/Immunologic Allergic/Immunologic ED: Denies mouth swelling, tongue swelling or urticaria EXAM Physical Exam Const Vital Signs: 08/24/23 11:56 Temperature 96.5 F L Temperature Source Temporal Pulse Rate 88 Respiratory Rate 18 Blood Pressure 116/78 Blood Pressure Mean 90 Pulse Ox 100 Oxygen Delivery Method Room Air Positive well nourished, well developed and obese General Appearance ED: well developed Nutritional Appearance: obese HEENT Reports normocephalic, head/scalp atraumatic and moist mucous membranes Eyes PERRL and EOMs intact bilaterally Neck no lymphadenopathy, supple and no JVD Resp normal respiratory effort and clear to auscultation bilaterally Cardio regular rate, regular rhythm and no murmurs GI normal to inspection, nondistended, normoactive bowel sounds Inspection: Negative for abdominal distention Auscultation: normoactive bowel sounds Palpation: soft and tender epigastric, LUQ and RUQ Back/Spine no CVA tenderness and normal ROM Extremity normal to inspection General Extremety ED: Negative for edema General Extremity: Negative for edema Neuro oriented x3 and CN's II-XII intact bilaterally Sensorium / Orientation: alert Motor Exam: strength 5/5 throughout Psych mental status grossly normal Mood & Affect: Negative for depressed or tearful Skin no rashes or lesions noted and no wounds MDM MDM MDM Narrative Medical decision making narrative: Blood work obtained on the patient which reveals a white count of 8.5.MP showed ALT of 59. test is negative. Normal sodium and potassium. BUN and creatinine are normal. CT the abdomen pelvis was obtained which was negative for evidence of acute colitis or perforation/abscess. Stool studies showed a negative C. difficile. O&P is still pending. At this point patient will be discharged home. I believe is to be more of a viral illness. We will wait for the laboratory analysis in the stool. Follow-up with primary care if not improving return if worsening Lab Data Attestation: I reviewed the patient's lab results. Labs: Laboratory Results - last 24 hr 08/24/23 13:06 WBC 8.5 RBC 4.25 Hgb 12.0 Hct 35.5 L MCV 83.5 MCH 28.2 MCHC 33.8 RDW Std Deviation 39.0 RDW Coeff of Semaj 13.1 Plt Count 352 MPV 9.6 Immature Gran % (Auto) 0.200 Neut % (Auto) 51.2 Lymph % (Auto) 31.6 Spencer % (Auto) 9.3 Eos % (Auto) 7.2 H Baso % (Auto) 0.5 Absolute Neuts (auto) 4.3 Absolute Lymphs (auto) 2.67 Nucleated RBC % 0 Sodium 140 Potassium 3.7 Chloride 111 H Carbon Dioxide 25.0 Anion Gap 4 L BUN 9 Creatinine 0.76 Estim Creat Clear Calc 110.04 Est GFR (MDRD) Af Amer 119 Est GFR (MDRD) Non-Af 98 BUN/Creatinine Ratio 11.8 Glucose 81 Calcium 8.6 Total Bilirubin 0.30 Direct Bilirubin 0.08 AST 29 ALT 59 H Alkaline Phosphatase 60 Total Protein 6.6 Albumin 3.4 Globulin 3.2 Lipase 46 Serum , Qual NEGATIVE Radiography Diagnostic Testing: Clinical Impression(s) from Imaging Studies Abdomen/Pelvis CT 08/24/23 12:35 IMPRESSION: Normal enhanced CT of the abdomen and pelvis. Electronically Signed: Charles Allen MD at 15:19 EDT , Discharge Plan Triage Chief Complaint: Abd Pain ED Provider: Ham Rankin Dx/Rx/DC Orders Clinical Impression: Diarrhea, Abdominal pain Instructions: ED Diarrhea, Unknown Cause Prescriptions: No Action propranolol 10 mg tablet 10 mg PO TID PRN (Reason: anxiety) Qty: 90 1RF Rexulti 2 mg tablet 2 mg PO DAILY 30 Days Qty: 30 2RF fluoxetine 60 mg tablet 60 mg PO DAILY Qty: 30 2RF Primary Care Provider: Dai Ordaz NP Referrals: Dai Ordaz [facility] [[facility]] - 3-5 Days if not improving Disposition Disposition: Home, Self Care
[2023-08-24 13:15] LABS: Absolute Lymphocyte Count 2.67 X10^3/uL (0.83-4.51); Absolute Neutrophil Count 4.3 X10^3/uL (2.0-7.7); Basophil# 0.04 X10^3/uL; Basophil% 0.5 % (0-1); Eosinophil# 0.61 X10^3/uL; Eosinophils% 7.2 % (0-5); Hematocrit 35.5 % (37-47); Lymphocyte # 2.67 X10^3/ul (0.83-4.51); Lymphocyte % 31.6 % (19-41); Mean Corp Hgb Conc 33.8 g/dL (32-36); Mean Corpuscular Hgb 28.2 pg (27.0-32.0); Mean Corpuscular Volume 83.5 fL (81-99); Mean Platelet Vol. 9.6 fl (6.2-12.0); Monocyte# 0.79 X10^3/uL; Monocyte% 9.3 % (0-10); NRBC Flagged by Analyzer 0 % (0-5); Neutrophil # 4.33 X10^3/uL (2.7-7.7); Neutrophil % 51.2 % (47-70); Platelet Count 352 K/mm3 (150-450); RBC Distribution Width CV 13.1 % (11.6-14.6); Red Blood Count 4.25 M/mm3 (4.2-5.4); White Blood Count 8.5 K/mm3 (4.4-11.0)
[2023-08-24] MEDS: 0.9% Normal Saline (1000mL) 1,000 ML 1000 ML IV (13:15)
[2023-08-24 13:33] LABS: AST(SGOT) 29 U/L (15-37); Alanine Aminotransfer ALT/SGPT 59 U/L (13-56); Albumin, Serum 3.4 g/dL (3.2-5.0); Alkaline Phosphatase 60 U/L (45-117); Anion Gap 4 (5-15); BUN 9 mg/dL (7-18); BUN/Creat Ratio 11.8 RATIO (10-20); Bilirubin, Direct 0.08 mg/dL (0.00-0.30); Calcium,Total 8.6 mg/dL (8.5-10.1); Chloride 111 mmol/L (98-107); Creatinine, Serum 0.76 mg/dL (0.55-1.02); EST Glomerular Filtration Rate 98 mL/min (>60); Est Glom Filt Rate - Afr Amer 119 mL/min (>60); Estimated Creatinine Clearance 110.04 ml/min; Globulin 3.2 g/dL (2.2-4.2); Glucose 81 mg/dL (74-106); Lipase 46 U/L (13-75); Potassium 3.7 mmol/L (3.5-5.1); Protein, Total 6.6 g/dL (6.4-8.2); Sodium Level 140 mmol/L (136-145)
[2023-08-24 13:34] LABS: Internal QC Validated? YES +Cl - CLEAR BKGD; Pregnancy, Serum, hCG Quali. NEGATIVE Negative; Record Kit Lot#, Serum Preg. HCG0000667200
== END 2023-08-24 15:44 | disposition home or self-care (01) ==
PROVIDERS: Emergency Provider Emergency Medicine; PCP Registered Nurse; Visit Provider Emergency Medicine
DX: R10.9 Unspecified abdominal pain (principal); R19.7 Diarrhea, unspecified
CPT/HCPCS: 74177; 80048; 80076; 83630; 83690; 84703; 85025; 87177; 87209; 87493; 87506; 96360; 96361; 99283; J7030; Q9967; A4216

== ENCOUNTER 2023-09-09 10:55 | Emergency (ER) | payer MEDICAID, SELFPAY ==
[2023-09-09 10:56] VITALS: BP 119/86; PULSE 103; RESP 16; TEMP 35.7; O2SAT 100; BMI 33.0
--- NOTE | 2023-09-09 11:48 | US_ITS ---
EXAM: US ABDOMEN LIMITED, RIGHT UPPER QUADRANT CLINICAL INDICATION: ABDOMEN PAIN, N/V/D TECHNIQUE: Real-time ultrasound of the right upper quadrant with image documentation. COMPARISON: No relevant prior studies available. FINDINGS: LIVER: Liver echogenicity appears increased suggesting diffuse parenchymal liver disease, likely steatosis. Focal fat sparing noted within the liver adjacent to the gallbladder fossa. GALLBLADDER: Normal. No shadowing gallstone. No gallbladder wall thickening is demonstrated. No pericholecystic fluid. Negative sonographic Odell''s sign. COMMON BILE DUCT: Unremarkable as visualized. The proximal common bile duct is normal size. PANCREAS: Unremarkable as visualized. No focal abnormality is demonstrated in the pancreas. No pancreatic ductal dilatation. RIGHT KIDNEY: Normal. There is no hydronephrosis. No shadowing calculus. No focal lesion or perinephric collection is demonstrated. US/Gallbladder IMPRESSION: Hepatic steatosis. Normal gallbladder. Electronically Signed: Jean Persaud MD at 14:49 EDT ,
[2023-09-09] MEDS: 0.9% Normal Saline (1000mL) 1,000 ML 1000 ML IV (12:18)
[2023-09-09] MEDS: Morphine 4 MG/ML Syringe IV (12:19)
[2023-09-09] MEDS: Ondansetron 4 MG/2 ML Vial IV (12:19)
--- NOTE | 2023-09-09 12:24 | ED.VIS.GI ---
HPI HPI - GI History of Present Illness Chief Complaint: Nausea/Vomiting/Diarrhea Informant: patient Abdominal Pain/Flank Pain Onset: Month(s) (1) Context: Gradual Onset Timing: Intermittent Quality: Sharp Location: RUQ Worsened by: Nothing Relieved by: Nothing Nausea/Vomiting/Emesis GI Symptom: Positive for Nausea and Vomiting Quality: Positive for Nonbilious; Negative for Blood streaks, Coffee ground or Hematemesis Diarrhea/Melena/Hematochezia GI Symptom: Positive for Diarrhea; Negative for Melena or Hematochezia Stool Quality: Positive for Watery Associated Symptoms Associated Symptoms: Negative for Dysuria, Frequency or Hematuria LMP: 08/01/2023 Narrative Narrative: Patient presents with abdominal pain, nausea, vomiting, and diarrhea that has been intermittent for the past month. Patient describes her pain as sharp. Patient states her pain is mainly over the right upper abdomen. Patient states nothing makes it better and nothing makes it worse. Patient admits to some nausea and vomiting. Patient denies any hematemesis or coffee-ground emesis. Patient admits to watery diarrhea. Patient denies any melena or hematochezia. Patient denies any dysuria, frequency, or hematuria. Patient states her last menstrual period was 08/01/2023. Patient also admits to some intermittent fevers that have been up to 102 at home. Patient states she went to an urgent care today and was told to come to the emergency department for possible dehydration due to the diarrhea. [facility] Medical History Anxiety Contraceptive management Family history of hearing loss at age younger than 7 years History of pre-term labor Major depression depression PTSD (post-traumatic stress disorder) Vaginal delivery Home Medications propranolol 10 mg tablet 10 mg PO TID PRN anxiety #90 tabs 06/03/23 [Rx Last Taken Unknown] fluoxetine 60 mg tablet 60 mg PO DAILY #30 tabs 06/16/23 [Rx Last Taken Unknown] brexpiprazole 2 mg tablet 2 mg PO DAILY 30 days #30 tabs 08/07/23 [Rx Last Taken Unknown] Allergy/AdvReac Type Severity Reaction Status Date / Time No Known Allergies Allergy Verified 08/24/23 11:57 Surgical History History of tonsillectomy Social History adopted: No household members: spouse and children housing: house number of children: 3 current occupational status: unemployed 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 current occupational exposures/hazards: No pets and animals: Yes pets and animals: dog(s) history of recent travel: No sexually active: Yes Smoking Status: Never smoker alcohol intake: never substance use type: does not use well-balanced diet: daily or most days caffeine: Yes (occasional) Type: carbonated beverages eating out: 1-3 times/week what type of physical activity do you participate in: walking frequency: 3-4 times per week duration: 45-60 minutes/day charlie/hinduism: None seatbelt use: always do you feel safe at home: Yes additional social history: [employer]- Works for [employer] 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 ROS ROS ED Constitutional Constitutional ED: Reports fever(s); Denies chills Eyes Eyes: Denies blurry vision or change in vision ENT ENT ED: Denies rhinorrhea or sore throat Cardiovascular Cardiovascular: Denies chest pain or palpitations Respiratory/Chest Respiratory/Chest: Denies cough or dyspnea Gastrointestinal Gastrointestinal: Reports abdominal pain, diarrhea, nausea and vomiting; Denies melena Genitourinary Genitourinary ED: Denies dysuria or hematuria Musculoskeletal Musculoskeletal: Denies back pain or neck pain Integumentary Denies abscess or rash Neurologic Neurologic: Denies headache(s) or weakness Allergic/Immunologic Allergic/Immunologic ED: Denies mouth swelling or urticaria EXAM Physical Exam Const Vital Signs: 09/09/23 10:56 09/09/23 15:48 Temperature 96.2 F L Temperature Source Temporal Pulse Rate 103 H 72 Respiratory Rate 16 15 Blood Pressure 119/86 H 118/64 Blood Pressure Mean 97 82 Pulse Ox 100 98 Oxygen Delivery Method Room Air Room Air Positive well nourished, well developed and obese General Appearance ED: well developed and NAD Nutritional Appearance: obese HEENT Reports moist mucous membranes Neck supple and no JVD Resp normal respiratory effort and clear to auscultation bilaterally Cardio regular rate and regular rhythm GI non-distended Palpation: soft and tender epigastric and RUQ; Negative for guarding or rebound tenderness present Extremity full ROM Neuro CN's II-XII intact bilaterally, moves all extremities and no sensory deficits noted Sensorium / Orientation: alert Motor Exam: strength 5/5 throughout Psych mental status grossly normal and thought process normal MDM MDM MDM Narrative Medical decision making narrative: Differential diagnosis includes gastritis, peptic ulcer disease, cholecystitis, cholelithiasis, bowel obstruction, perforation, pancreatitis, electrolyte abnormality, dehydration, and gastroenteritis. CBC will be obtained to assess for leukocytosis and anemia. Comprehensive metabolic profile will be obtained to assess for hepatic function, renal function, and electrolyte abnormality. Lipase will be obtained to assess for pancreatitis. Urinalysis will be obtained to assess for urinary tract infection. Serum hCG will be obtained to assess for . Right upper quadrant ultrasound will be obtained to assess for cholelithiasis and cholecystitis. Lab Data Attestation: I reviewed the patient's lab results. Lab results narrative: CBC was reviewed and was within normal limits. Comprehensive metabolic profile was reviewed. Potassium slightly low at 3.1. AST was slightly elevated at 40 and ALT was slightly elevated at 81. Lipase was reviewed and was normal. Serum hCG was reviewed and was negative. Urinalysis was reviewed. There is no evidence of urinary tract infection or hematuria. Labs: Laboratory Results - last 24 hr 09/09/23 09/09/23 12:10 14:25 WBC 8.7 RBC 4.74 Hgb 12.9 Hct 39.1 MCV 82.5 MCH 27.2 MCHC 33.0 RDW Std Deviation 39.3 RDW Coeff of Semaj 13.2 Plt Count 421 MPV 9.7 Immature Gran % (Auto) 0.200 Neut % (Auto) 48.7 Lymph % (Auto) 31.7 Steele % (Auto) 7.7 Eos % (Auto) 10.8 H Baso % (Auto) 0.9 Absolute Neuts (auto) 4.3 Absolute Lymphs (auto) 2.76 Nucleated RBC % 0 Sodium 140 Potassium 3.1 L Chloride 110 H Carbon Dioxide 25.0 Anion Gap 5 BUN 7 Creatinine 0.87 Estim Creat Clear Calc 96.13 Est GFR (MDRD) Af Amer 102 Est GFR (MDRD) Non-Af 84 BUN/Creatinine Ratio 8.0 L Glucose 98 Calcium 8.4 L Total Bilirubin 0.40 AST 40 H ALT 81 H Alkaline Phosphatase 60 Total Protein 7.1 Albumin 3.5 Globulin 3.6 Albumin/Globulin Ratio 1.0 Lipase 35 Serum , Qual NEGATIVE Urine Color Yellow Urine Clarity Clear Urine pH 6.0 Ur Specific Graham 1.020 Urine Protein 30 H Urine Glucose (UA) Normal Urine Ketones Negative Urine Occult Blood Negative Urine Nitrite Negative Urine Bilirubin Negative Urine Urobilinogen Normal Ur Leukocyte Esterase 25 H Urine RBC 0 SEEN Urine WBC 0-5 SEEN Ur Squamous Epith Cells 5-10 SEEN Urine Bacteria 0 SEEN Urine Mucus 0 SEEN Radiography Diagnostic Testing: Clinical Impression(s) from Imaging Studies Gallbladder Ultrasound 09/09/23 11:48 IMPRESSION: Hepatic steatosis. Normal gallbladder. Electronically Signed: Jean Persaud MD at 14:49 EDT , Right upper quadrant ultrasound was obtained. There is hepatic steatosis. There is no evidence of cholecystitis or cholelithiasis. This was interpreted by the radiologist and was also dependently reviewed by myself. Treatment and Re-Evaluation :: Patient was given IV fluids, morphine, and Zofran. Patient was feeling better on reevaluation. Patient was advised of her findings. Patient was instructed to follow-up with her primary care physician in 5 to 7 days for reevaluation. Patient understood and was agreeable with the plan. All questions were answered. Discharge Plan Triage Chief Complaint: Nausea/Vomiting/Diarrhea ED Provider: Mega Cobos Dx/Rx/DC Orders Clinical Impression: Nausea, vomiting, and diarrhea, Abdominal pain Instructions: ED Abdominal Pain Unkn Cause Fem, ED Vomiting and Diarrhea ... Prescriptions: No Action propranolol 10 mg tablet 10 mg PO TID PRN (Reason: anxiety) Qty: 90 1RF Rexulti 2 mg tablet 2 mg PO DAILY 30 Days Qty: 30 2RF fluoxetine 60 mg tablet 60 mg PO DAILY Qty: 30 2RF Primary Care Provider: Dai Ordaz NP Referrals: Dai Ordaz NP, [employer] [facility] [Primary Care Provider] -
[2023-09-09 12:26] LABS: Absolute Lymphocyte Count 2.76 X10^3/uL (0.83-4.51); Absolute Neutrophil Count 4.3 X10^3/uL (2.0-7.7); Basophil# 0.08 X10^3/uL; Basophil% 0.9 % (0-1); Eosinophil# 0.94 X10^3/uL; Eosinophils% 10.8 % (0-5); Hematocrit 39.1 % (37-47); Hemoglobin 12.9 g/dL (12.0-15.0); Lymphocyte # 2.76 X10^3/ul (0.83-4.51); Lymphocyte % 31.7 % (19-41); Mean Corpuscular Hgb 27.2 pg (27.0-32.0); Mean Corpuscular Volume 82.5 fL (81-99); Mean Platelet Vol. 9.7 fl (6.2-12.0); Monocyte# 0.67 X10^3/uL; Monocyte% 7.7 % (0-10); NRBC Flagged by Analyzer 0 % (0-5); Neutrophil # 4.25 X10^3/uL (2.7-7.7); Neutrophil % 48.7 % (47-70); Platelet Count 421 K/mm3 (150-450); RBC Distribution Width CV 13.2 % (11.6-14.6); RBC Distribution Width SD 39.3 fl (35.1-43.9); Red Blood Count 4.74 M/mm3 (4.2-5.4); White Blood Count 8.7 K/mm3 (4.4-11.0)
[2023-09-09 12:44] LABS: AST(SGOT) 40 U/L (15-37); Alanine Aminotransfer ALT/SGPT 81 U/L (13-56); Albumin, Serum 3.5 g/dL (3.2-5.0); Alkaline Phosphatase 60 U/L (45-117); Anion Gap 5 (5-15); BUN 7 mg/dL (7-18); Calcium,Total 8.4 mg/dL (8.5-10.1); Chloride 110 mmol/L (98-107); Creatinine, Serum 0.87 mg/dL (0.55-1.02); EST Glomerular Filtration Rate 84 mL/min (>60); Est Glom Filt Rate - Afr Amer 102 mL/min (>60); Estimated Creatinine Clearance 96.13 ml/min; Globulin 3.6 g/dL (2.2-4.2); Glucose 98 mg/dL (74-106); Potassium 3.1 mmol/L (3.5-5.1); Protein, Total 7.1 g/dL (6.4-8.2); Sodium Level 140 mmol/L (136-145)
[2023-09-09 12:55] LABS: Internal QC Validated? YES +Cl - CLEAR BKGD; Pregnancy, Serum, hCG Quali. NEGATIVE Negative
[2023-09-09 13:26] LABS: Lipase 35 U/L (13-75)
[2023-09-09 14:31] LABS: Bacteria 0 SEEN /hpf (None Seen); Mucous, Urine 0 SEEN /hpf (<or=2+); Red Blood Cells-Urine 0 SEEN /hpf (0-5)
[2023-09-09 14:37] LABS: Color, Urine Yellow (Yellow); Glucose, Dipstick Normal (Normal); Ketone-Dipstick Negative (Negative); Leukocyte Esterase-Dipstick 25 /ul (Negative); Nitrite-Dipstick Negative (Negative); Occult Blood-Urine Negative /ul (Negative); Protein-Dipstick 30 mg/dl (Negative); Urine Bilirubin Dipstick Negative (Negative); Urine Clarity Clear (Clear); Urine Urobilinogen Normal (Normal)
[2023-09-09 14:55] LABS: Squamous Epithelial Cells - UA 5-10 SEEN /hpf (5-10); White Blood Cells 0-5 SEEN /hpf (0-5)
[2023-09-09 15:48] VITALS: BP 118/64; PULSE 72; RESP 15; O2SAT 98
[2023-09-09 17:31] VITALS: BP 127/69; PULSE 71; RESP 16; O2SAT 98
== END 2023-09-09 17:35 | disposition home or self-care (01) ==
PROVIDERS: Emergency Provider Emergency Medicine; PCP Registered Nurse; Visit Provider Emergency Medicine
DX: R11.2 Nausea with vomiting, unspecified (principal); R10.9 Unspecified abdominal pain; R19.7 Diarrhea, unspecified; F41.9 Anxiety disorder, unspecified; F32.9 Major depressive disorder, single episode, unspecified
CPT/HCPCS: 76705; 80053; 81001; 83690; 84703; 85025; 99283; J7030; J2405

== ENCOUNTER → 2024-06-07 | Outpatient (CLI) | payer MEDICAID, SELFPAY ==
[2024-06-07 14:27] LABS: Absolute Lymphocyte Count 2.19 X10^3/uL (0.83-4.51); Absolute Neutrophil Count 8.1 X10^3/uL (2.0-7.7); Basophil# 0.06 X10^3/uL; Basophil% 0.5 % (0-1); Eosinophil# 0.41 X10^3/uL; Eosinophils% 3.6 % (0-5); Hematocrit 38.7 % (37-47); Hemoglobin 13.3 g/dL (12.0-15.0); Lymphocyte # 2.19 X10^3/ul (0.83-4.51); Mean Corp Hgb Conc 34.4 g/dL (32-36); Mean Corpuscular Hgb 28.7 pg (27.0-32.0); Mean Corpuscular Volume 83.4 fL (81-99); Mean Platelet Vol. 9.8 fl (6.2-12.0); Monocyte# 0.74 X10^3/uL; Monocyte% 6.4 % (0-10); NRBC Flagged by Analyzer 0 % (0-5); Neutrophil % 70.2 % (47-70); Platelet Count 333 K/mm3 (150-450); RBC Distribution Width SD 42.6 fl (35.1-43.9); Red Blood Count 4.64 M/mm3 (4.2-5.4); White Blood Count 11.5 K/mm3 (4.4-11.0)
[2024-06-07 15:43] LABS: HIV - WCH Non-Reactive (Nonreactive); Hepatitis B Surface Antigen Non-Reactive (Nonreactive); Hepatitis C Antibody Non-Reactive (Nonreactive); Rubella IgG Reactive (Nonreactive); Syphilis Antibodies Non-reactive
[2024-06-07 19:48] LABS: Hemoglobin A1c 4.8 % (3.8-5.6)
[2024-06-10 07:08] LABS: Chlamydia By Nucleic Acid AMP Negative (Negative); Gonococcus By Nucleic Acid AMP Negative (Negative)
[2024-06-11 19:40] LABS: HPV Reflexed? NOT INDICATED
== END | disposition home or self-care (01) ==
PROVIDERS: PCP Registered Nurse; Referring Provider Advanced Practice Midwife; Visit Provider Advanced Practice Midwife
DX: O09.90 Supervision of high risk pregnancy, unspecified, unspecified trimester (principal); E66.9 Obesity, unspecified; Z3A.00 Weeks of gestation of pregnancy not specified
CPT/HCPCS: 36415; 83036; 85025; 86703; 86762; 86780; 86803; 86850; 86900; 86901; 87086; 87088; 87340; 87491; 87591; 88175; G0145

== ENCOUNTER 2024-06-26 17:55 | Emergency (ER) | payer MEDICAID, SELFPAY ==
[2024-06-26 17:56] VITALS: BP 117/72; PULSE 87; RESP 16; TEMP 35.7; O2SAT 99; BMI 32.4
--- NOTE | 2024-06-26 18:21 | ED.VIS.GI ---
HPI HPI - GI History of Present Illness Chief Complaint: Constipation Detail of Chief Complaint: Constipation Informant: patient Narrative Narrative: Patient presents the emergency department complaint constipation. Patient states that she has not had a good bowel movement in about a month. She has had some small bowel movements and had 1 earlier today that was soft. She is been taking MiraLAX daily as well as Colace and she is try glycerin suppositories. Patient had problems with constipation in the past and she is currently 13 weeks . With her second she required soapsuds enemas which really seem to help her. She is here basically requesting a soapsuds enema. Patient denies any fevers. She denies significant abdominal discomfort. She denies urinary symptoms. PFSH PFSH Medical History OCD (obsessive compulsive disorder) PTSD (post-traumatic stress disorder) Major depression Contraceptive management Vaginal delivery Family history of hearing loss at age younger than 7 years History of pre-term labor depression Anxiety Home Medications ?Medication ?Instructions ?Recorded ?Last Taken ?Type ondansetron 4 mg disintegrating 4 mg PO Q4H PRN nausea and 05/19/24 Unknown Rx tablet vomiting #60 tabs multivitamin no.47-iron fum 27 1 cap PO DAILY 06/04/24 Unknown History mg-folate no.1 1 mg-dha 300 mg capsule (PNV-DHA) docusate sodium 100 mg capsule 100 mg PO BID 06/26/24 Unknown History (Colace) polyethylene glycol 3350 17 17 g PO BID 06/26/24 Unknown History gram/dose oral powder (ClearLax) Allergy/AdvReac Type Severity Reaction Status Date / Time No Known Allergies Allergy Verified 06/07/24 12:50 Family History Grandfather Spina bifida unconfirmed Surgical History H/O hernia repair History of cholecystectomy History of tonsillectomy Social History adopted: No household members: spouse and children housing: house number of children: 3 current occupational status: unemployed 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 current occupational exposures/hazards: No pets and animals: Yes (Avoid litterbox) pets and animals: cat(s) and dog(s) history of recent travel: Yes ([place]) out of state: Yes out of country: No sexually active: Yes Smoking Status: Never smoker alcohol intake: never substance use type: does not use well-balanced diet: daily or most days caffeine: No (occasional) eating out: rarely or never during the past year weight has: decreased > 10 lbs what type of physical activity do you participate in: walking frequency: 3-4 times per week duration: 45-60 minutes/day charlie/orthodox: Scientology seatbelt use: always do you feel safe at home: Yes additional social history: [employer]- Works for [employer] 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 ROS ROS ED Review of Systems ROS Unobtainable: other Constitutional Constitutional ED: Reports lethargy; Denies chills, fever(s), sweats or weight loss Eyes Eyes: Denies blurry vision, change in vision or diplopia ENT ENT ED: Denies rhinorrhea or sore throat Cardiovascular Cardiovascular: Denies chest pain, orthopnea or racing heartbeat Respiratory/Chest Respiratory/Chest: Denies cough, dyspnea, dyspnea on exertion, orthopnea or sputum Gastrointestinal Gastrointestinal: Reports constipation; Denies abdominal pain, diarrhea, nausea or vomiting Genitourinary Genitourinary ED: Denies dysuria, hematuria or urinary frequency Musculoskeletal Musculoskeletal: Denies arthralgias, back pain, myalgias or neck pain Integumentary Denies abscess, Abrasions or rash Neurologic Neurologic: Denies headache(s) or weakness Psychiatric Psychiatric: Denies anxiety, depression or suicidal thoughts Endocrine Endocrinology: Denies polydipsia, polyphagia or polyuria Hematologic/Lymphatic Hematologic/Lymphatic: Denies easy bleeding, easy bruising or lymphadenopathy Allergic/Immunologic Allergic/Immunologic ED: Denies mouth swelling, tongue swelling or urticaria EXAM Physical Exam Const Vital Signs: 06/26/24 17:56 Temperature 96.2 F L Temperature Source Temporal Pulse Rate 87 Respiratory Rate 16 Blood Pressure 117/72 Blood Pressure Mean 87 Pulse Ox 99 Oxygen Delivery Method Room Air Positive well nourished and well developed General Appearance ED: well developed and NAD HEENT Reports TM's clear and moist mucous membranes normocephalic and atraumatic; Negative for trauma or tenderness Tympanic Membrane ED: Yes TM's clear Eyes PERRL and EOMs intact bilaterally General Eye ED: Negative for pale conjunctiva or scleral icterus Neck no lymphadenopathy, supple and no JVD General: Negative for tenderness Chest Wall inspection of chest normal and palpation of chest normal Chest: Negative for tenderness Resp normal respiratory effort and clear to auscultation bilaterally Effort and Inspection: Negative for respiratory distress or pain with movement Auscultation: Negative for rhonchi, wheezes or diminished lung sounds Cardio regular rate, regular rhythm, S1 normal heart sound, S2 normal heart sound and no murmurs Peripheral Pulses: pulses 2+ throughout GI normal to inspection, nondistended, normoactive bowel sounds, soft to palpation, non-tender, non-distended and no masses GI Narrative: Rectal exam performed and she had small amount of brown stool stool was soft. No masses palpated. No impaction. Back/Spine no CVA tenderness and no thoracic nor lumbar tenderness Extremity normal to inspection General Extremety ED: Negative for edema General Extremity: Negative for edema Neuro oriented x3, CN's II-XII intact bilaterally, no sensory deficits noted and gait normal Sensorium / Orientation: awake, alert, oriented to person, oriented to place and oriented to time Motor Exam: strength 5/5 throughout and strength abnormal Psych mental status grossly normal Skin no rashes or lesions noted and no wounds MDM MDM MDM Narrative Medical decision making narrative: Patient presents with constipation and 13 weeks . I will not obtain any imaging given her status and her abdominal exam is benign. Will go ahead and give her a soapsuds enema. Will order a urinalysis. Urinalysis was normal. Given that she is I do not feel any imaging is indicated especially given that she has a benign exam. She was given a soapsuds enema. She had good results with that. She did feel improved. This point will discharge to home. Advised to return if worsening abdominal pain, fever, vomiting, or condition should worsen anyway. She is to return if vaginal bleeding or condition should worsen anyway. Lab Data Labs: Laboratory Results - last 24 hr 06/26/24 18:36 Urine Color Yellow Urine Clarity Clear Urine pH 7.0 Ur Specific Foley 1.005 Urine Protein Negative Urine Glucose (UA) 100 H Urine Ketones Negative Urine Occult Blood Negative Urine Nitrite Negative Urine Bilirubin Negative Urine Urobilinogen Normal Ur Leukocyte Esterase 25 H Urine RBC 0 SEEN Urine WBC 0-5 SEEN Ur Squamous Epith Cells 0-5 SEEN Urine Bacteria 0 SEEN Urine Mucus 0 SEEN Discharge Plan Triage Chief Complaint: Constipation ED Provider: Rodrick Freire Dx/Rx/DC Orders Clinical Impression: Constipation Instructions: ED Constipation (Adult) Prescriptions: No Action PNV-DHA 27 mg iron-1 mg -300 mg capsule 1 cap PO DAILY polyethylene glycol 3350 [ClearLax] 17 gram/dose powder 17 g PO BID docusate sodium [Colace] 100 mg capsule 100 mg PO BID ondansetron 4 mg tablet,disintegrating 4 mg PO Q4H PRN (Reason: nausea and vomiting) Qty: 60 2RF Primary Care Provider: Dai Ordaz NP Referrals: Dai Ordaz NP, [employer] [Primary Care Provider] - 3-5 Days Print Language: [place] Islander Disposition Disposition: Home, Self Care
[2024-06-26 18:41] LABS: Bacteria 0 SEEN /hpf (None Seen); Mucous, Urine 0 SEEN /hpf (<or=2+); Red Blood Cells-Urine 0 SEEN /hpf (0-5)
[2024-06-26 18:43] LABS: Color, Urine Yellow (Yellow); Glucose, Dipstick 100 mg/dl (Normal); Ketone-Dipstick Negative (Negative); Leukocyte Esterase-Dipstick 25 /ul (Negative); Nitrite-Dipstick Negative (Negative); Occult Blood-Urine Negative /ul (Negative); Protein-Dipstick Negative (Negative); Specific Gravity, Urine 1.005 (1.002-1.030); Urine Bilirubin Dipstick Negative (Negative); Urine Clarity Clear (Clear); Urine Urobilinogen Normal (Normal)
[2024-06-26 18:58] LABS: Squamous Epithelial Cells - UA 0-5 SEEN /hpf (5-10); White Blood Cells 0-5 SEEN /hpf (0-5)
== END 2024-06-26 20:02 | disposition home or self-care (01) ==
PROVIDERS: Emergency Provider Emergency Medicine; PCP Registered Nurse; Visit Provider Emergency Medicine
DX: O99.611 Diseases of the digestive system complicating pregnancy, first trimester (principal); K59.00 Constipation, unspecified; O99.341 Other mental disorders complicating pregnancy, first trimester; F41.9 Anxiety disorder, unspecified; F32.9 Major depressive disorder, single episode, unspecified; Z3A.13 13 weeks gestation of pregnancy; Z79.899 Other long term (current) drug therapy
CPT/HCPCS: 81001; 99284

== ENCOUNTER 2024-08-22 16:27 | Outpatient (CLI) | payer SELFPAY ==
[2024-08-22 16:47] VITALS: RESP 14; TEMP 36.8; O2SAT 98
[2024-08-22 16:48] VITALS: PULSE 98; O2SAT 98
[2024-08-22 16:52] VITALS: BP 108/63; PULSE 89
[2024-08-22 17:10] VITALS: BMI 31.4
--- NOTE | 2024-08-22 19:27 | OB.TRI.HP_ITS ---
HPI - General HPI Narrative GLORY HARRELL, is a 24 F who presents at 21 weeks with fall around 330pm on porch onto back/bottom. denies vaginal bleeding. had immediate cramping, however is no longer experiencing. feeling movement. Maternal Data Information ELIJAH Calculator Estimated Delivery Date Method Current WG Current Estimate 01/02/25 LMP (Certain) 21w 0d PFSH PFSH Medical History OCD (obsessive compulsive disorder) PTSD (post-traumatic stress disorder) Major depression Contraceptive management Vaginal delivery Family history of hearing loss at age younger than 7 years History of pre-term labor depression Anxiety Home Medications ?Medication ?Instructions ?Recorded ?Last Taken ?Type ondansetron 4 mg disintegrating 4 mg PO Q4H PRN nausea and 05/19/24 Unknown Rx tablet vomiting #60 tabs multivitamin no.47-iron fum 27 1 cap PO DAILY 06/04/24 Unknown History mg-folate no.1 1 mg-dha 300 mg capsule (PNV-DHA) docusate sodium 100 mg capsule 100 mg PO BID 06/26/24 Unknown History (Colace) polyethylene glycol 3350 17 17 g PO BID 06/26/24 Unknown History gram/dose oral powder (ClearLax) famotidine 20 mg tablet (Pepcid) 20 mg PO DAILY #30 tabs 07/06/24 Unknown Rx prochlorperazine maleate 10 mg 10 mg PO Q8H PRN nausea and 07/06/24 Unknown Rx tablet (Compazine) vomiting #90 tabs progesterone micronized 200 mg 200 mg vaginal QHS 30 days #30 caps 07/06/24 Unknown Rx capsule (Prometrium) sertraline 50 mg tablet (Zoloft) 50 mg PO QDAY #30 tabs 07/06/24 Unknown Rx Allergy/AdvReac Type Severity Reaction Status Date / Time No Known Allergies Allergy Verified 08/05/24 08:44 Family History Grandfather Spina bifida unconfirmed Surgical History H/O hernia repair History of cholecystectomy History of tonsillectomy Social History adopted: No household members: spouse and children housing: house number of children: 3 current occupational status: unemployed 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 current occupational exposures/hazards: No pets and animals: Yes (Avoid litterbox) pets and animals: cat(s) and dog(s) history of recent travel: Yes ([place]) out of state: Yes out of country: No sexually active: Yes Smoking Status: Never smoker alcohol intake: never substance use type: does not use well-balanced diet: daily or most days caffeine: No (occasional) eating out: rarely or never during the past year weight has: decreased > 10 lbs what type of physical activity do you participate in: walking frequency: 3-4 times per week duration: 45-60 minutes/day charlie/jewish: Yarsanism seatbelt use: always do you feel safe at home: Yes additional social history: Dagoberto- Works for [employer] 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 Date Name GA/Weeks Outcome Route Bth Weight Gen Labor Lgth Anesthesia Del Locatn Provider FOB 05/12/18 adaline 32 live - 4lb 7 oz Female s tarted at 20 weeks none [facility] 09/08/19 [place] 34 live - 6.10 Female none [facility] Dr. Mika Arenas 12/20/22 [place] 35 live - 6#6oz Female epid ural [facility] Rosalba Arenas Delivery Date: 09/08/19 Last Updated by: Delia Street transferred to [facility] Visit Details Expected Delivery Route/Plan Labor Preferences- CB/BF classes: [] labor support person: [] labor intervention preferences: [] pain management options preferred: [] cut cord/dad catch: [] : [] PP control planned: [] discussed possible routes of delivery and associated risks: [] special requests: [] Plans Covid status: [] Flu vaccine: [] Tdap vaccine: [] Rhogam: [] LARC form signed: [] Problem list reviewed and updated with the most current plan of care details and appropriate orders placed. Relevant counseling for the gestational age provided. Continue routine care and follow up unless otherwise noted in visit notes/problem list details OB Flowsheet Initial Weight: Not Recorded Date -?-?-?-?-?-?-?-?-?-?-?-?- EGA Weight BP Urine Prot -?-?-?-?-?-?-?-?-?-?-?-?- Glucose FHR FuHt Pres Dilation -?-?-?-?-?-?-?-?-?-?-?-?- Effaced St Visit Note 06/07/24 -?-?-?-?-?-?-?-?-?-?-?-?- 10w 1d 208 lb 4 oz 122/74 -?-?-?-?-?-?-?-?-?-?-?-?- 157 -?-?-?-?-?-?-?-?-?-?-?-?- KW-CRL 37mm. acc epts NIPT. MFM consult for hx of x 3. 07/06/24 -?-?-?-?-?-?-?-?-?-?-?-?- 14w 2d 201 lb 113/76 Negative -?-?-?-?-?-?-?-?-?-?-?-?- Negative 150 -?-?-?-?-?-?-?-?-?-?-?-?- Sm- no vb lof cr maping, having mood symptoms, nausea, wants to take pr ogesterone. will start zolof tand pepcid and prometrium, compazine. refer to mann bravo or gladis 419 08/05/24 -?-?-?-?-?-?-?-?-?-?-?-?- 18w 4d 200 lb 4 oz 108/74 Nega tive -?-?-?-?-?-?-?-?-?-?-?-?- Negative 142 -?-?-?-?-?-?-?-?-?-?-?-?- JV- just had CL and it is 4.0-4.2 cm. taking medications above. has not needed the hope 419 yet. struggles with migraines. NST FHR Rate Baby A Baseline: 140 NST Reactive:: Appropriate for gestational age Uterine Activity:: no contractions Assessment & Plan (1) Accidental fall: QUALIFIERS: Encounter type: initial encounter Qualified Code(s): W19.XXXA - Unspecified fall, initial encounter COMMENT: a positive blood type, no vaginal bleeding. no contractions. PLAN: Patient presents for triage evaluation secondary to accidental fall at home. denies vaginal bleeding, does endorse active fetus. no contractions x 4 hours. FHT: normal for gestational age. Brogan: no Contractions Assessment and plan:reassuring maternal and status patient discharged to home to follow-up in office as needed. See problem list details for additional plan information.
== END 2024-08-22 19:30 | disposition home or self-care (01) ==
LOC: WPOUT 16:34 → WP 16:35
PROVIDERS: PCP Registered Nurse; Referring Provider Registered Nurse; Visit Provider Registered Nurse
DX: O9A.212 Injury, poisoning and certain other consequences of external causes complicating pregnancy, second trimester (principal); S39.92XA Unspecified injury of lower back, initial encounter; Z3A.21 21 weeks gestation of pregnancy; W19.XXXA Unspecified fall, initial encounter
CPT/HCPCS: 59050; 99221; G0378

== ENCOUNTER → 2024-09-03 | Outpatient (CLI) | payer SELFPAY ==
[2024-09-03 11:04] LABS: Absolute Lymphocyte Count 1.84 X10^3/uL (0.83-4.51); Absolute Neutrophil Count 8.3 X10^3/uL (2.0-7.7); Basophil# 0.04 X10^3/uL; Basophil% 0.4 % (0-1); Eosinophil# 0.22 X10^3/uL; Hematocrit 36.9 % (37-47); Hemoglobin 12.6 g/dL (12.0-15.0); Lymphocyte # 1.84 X10^3/ul (0.83-4.51); Mean Corp Hgb Conc 34.1 g/dL (32-36); Mean Corpuscular Hgb 30.4 pg (27.0-32.0); Mean Corpuscular Volume 89.1 fL (81-99); Mean Platelet Vol. 10.2 fl (6.2-12.0); Monocyte# 0.43 X10^3/uL; NRBC Flagged by Analyzer 0 % (0-5); Neutrophil # 8.28 X10^3/uL (2.7-7.7); Neutrophil % 76.2 % (47-70); Platelet Count 277 K/mm3 (150-450); RBC Distribution Width CV 13.4 % (11.6-14.6); RBC Distribution Width SD 43.7 fl (35.1-43.9); Red Blood Count 4.14 M/mm3 (4.2-5.4); White Blood Count 10.9 K/mm3 (4.4-11.0)
[2024-09-03 11:11] LABS: Glucose Challenge Gest 1H 50g 127 mg/dL (70-140)
[2024-09-03 11:49] LABS: HIV - WCH Non-Reactive (Nonreactive); Syphilis Antibodies Non-reactive
== END | disposition home or self-care (01) ==
LOC: WOBLAB 09:37
PROVIDERS: Nurse Practitioner Women's Health; PCP Registered Nurse; Referring Provider Obstetrics & Gynecology; Visit Provider Obstetrics & Gynecology
DX: O09.90 Supervision of high risk pregnancy, unspecified, unspecified trimester (principal); Z3A.00 Weeks of gestation of pregnancy not specified
CPT/HCPCS: 36415; 82950; 85025; 86703; 86780

== ENCOUNTER 2024-09-14 18:31 | Emergency (ER) | payer SELFPAY ==
[2024-09-14 18:31] VITALS: BP 132/81; PULSE 75; RESP 16; TEMP 37.1; O2SAT 98; BMI 31.9
[2024-09-14 19:07] LABS: Absolute Lymphocyte Count 2.77 X10^3/uL (0.83-4.51); Absolute Neutrophil Count 9.4 X10^3/uL (2.0-7.7); Basophil# 0.04 X10^3/uL; Basophil% 0.3 % (0-1); Eosinophil# 0.29 X10^3/uL; Eosinophils% 2.2 % (0-5); Hematocrit 37.5 % (37-47); Hemoglobin 13.3 g/dL (12.0-15.0); Lymphocyte # 2.77 X10^3/ul (0.83-4.51); Lymphocyte % 20.7 % (19-41); Mean Corp Hgb Conc 35.5 g/dL (32-36); Mean Corpuscular Hgb 31.4 pg (27.0-32.0); Mean Corpuscular Volume 88.4 fL (81-99); Monocyte# 0.82 X10^3/uL; Monocyte% 6.1 % (0-10); NRBC Flagged by Analyzer 0 % (0-5); Neutrophil % 70.3 % (47-70); Platelet Count 319 K/mm3 (150-450); RBC Distribution Width CV 13.5 % (11.6-14.6); RBC Distribution Width SD 43.3 fl (35.1-43.9); Red Blood Count 4.24 M/mm3 (4.2-5.4); White Blood Count 13.4 K/mm3 (4.4-11.0)
[2024-09-14 19:16] LABS: Internal QC Validated? YES +Cl - CLEAR BKGD
[2024-09-14 19:18] LABS: Pregnancy, Serum, hCG Quali. POSITIVE Negative
[2024-09-14 19:19] LABS: Alcohol, Blood (Medical)-Serum < 3.0 mg/dL
[2024-09-14 19:20] LABS: Anion Gap 8 (5-15); BUN 3 mg/dL (7-18); BUN/Creat Ratio 4.7 RATIO (10-20); Calcium,Total 9.2 mg/dL (8.5-10.1); Chloride 110 mmol/L (98-107); Creatinine, Serum 0.63 mg/dL (0.55-1.02); EST Glomerular Filtration Rate 121 mL/min (>60); Est Glom Filt Rate - Afr Amer 146 mL/min (>60); Estimated Creatinine Clearance 158.06 ml/min; Glucose 96 mg/dL (74-106); Potassium 3.3 mmol/L (3.5-5.1); Sodium Level 140 mmol/L (136-145)
[2024-09-14 19:22] LABS: Amphetamine Urine VISTA NEGATIVE (<1000 ng/mL); Barbiturate Urine VISTA NEGATIVE (< 200 ng/mL); Benzodiazepine Urine VISTA NEGATIVE (< 200 ng/mL); Cocaine Urine VISTA NEGATIVE (< 300 ng/mL); Ecstacy Urine VISTA NEGATIVE (< 500 ng/mL); Methadone Urine VISTA NEGATIVE (< 300 ng/mL); PCP Urine VISTA NEGATIVE (< 25 ng/mL); THC Urine VISTA NEGATIVE (< 50 ng/mL); Vista UDS pH Range 6
--- NOTE | 2024-09-14 20:34 | ED.RN ---
crisis called, chart faxed
--- NOTE | 2024-09-14 22:53 | EX.ED.VIS.PS ---
HPI HPI - Psych History of Present Illness Chief Complaint: Suicidal Informant: patient Narrative Narrative: Patient 24-year-old female with history of PTSD, OCD, restrictive eating disorder, cutting and 1 prior suicide attempt with OD (was not evaluated) who is currently 24 weeks presenting with worsening depression and thoughts of self-harm. She feels that she has had worsening symptoms for the past month. She is G4, P3 and follows with Dr. Oliver Antunez. She is currently on Zoloft for her depression. She denies use of the vaginal bleeding, leakage of fluid or change in activity. Her mildly convince her to come in [facility] for further evaluation. She states that she is having worsening thoughts of self-harm but does not have an actual suicidal plan. She has been having panic attacks denies any chest pain or difficulty breathing. Does not have a psychiatrist or counselor. No other complaints or concerns reported at this time. [facility] Medical History OCD (obsessive compulsive disorder) PTSD (post-traumatic stress disorder) Major depression Vaginal delivery Family history of hearing loss at age younger than 7 years History of pre-term labor depression Anxiety Home Medications ?Medication ?Instructions ?Recorded ?Last Taken ?Type ondansetron 4 mg disintegrating 4 mg PO Q4H PRN nausea and 05/19/24 Unknown Rx tablet vomiting #60 tabs multivitamin no.47-iron fum 27 1 cap PO DAILY 06/04/24 Unknown History mg-folate no.1 1 mg-dha 300 mg capsule (PNV-DHA) docusate sodium 100 mg capsule 100 mg PO BID 06/26/24 Unknown History (Colace) famotidine 20 mg tablet (Pepcid) 20 mg PO DAILY #30 tabs 07/06/24 Unknown Rx progesterone micronized 200 mg 200 mg vaginal QHS 30 days #30 caps 07/06/24 Unknown Rx capsule (Prometrium) aspirin 81 mg capsule 81 mg PO DAILY 09/14/24 Unknown History Allergy/AdvReac Type Severity Reaction Status Date / Time No Known Allergies Allergy Verified 09/14/24 18:32 Family History Grandfather Spina bifida unconfirmed Surgical History H/O hernia repair History of cholecystectomy History of tonsillectomy Social History adopted: No household members: spouse and children housing: house number of children: 3 current occupational status: unemployed 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 current occupational exposures/hazards: No pets and animals: Yes (Avoid litterbox) pets and animals: cat(s) and dog(s) history of recent travel: Yes ([place]) out of state: Yes out of country: No sexually active: Yes Smoking Status: Never smoker alcohol intake: never substance use type: does not use well-balanced diet: daily or most days caffeine: No (occasional) eating out: rarely or never during the past year weight has: decreased > 10 lbs what type of physical activity do you participate in: walking frequency: 3-4 times per week duration: 45-60 minutes/day charlie/quaker: Spiritism seatbelt use: always do you feel safe at home: Yes additional social history: [employer] Works for [employer] 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 SYL ROS ED Constitutional Constitutional ED: Denies chills or fever(s) Cardiovascular Cardiovascular: Denies chest pain Respiratory/Chest Respiratory/Chest: Reports dyspnea and other Details: Shortness of breath associated panic attacks ; Denies cough Gastrointestinal Gastrointestinal: Denies abdominal pain, nausea or vomiting Genitourinary Genitourinary ED: Reports other Details: 24 weeks Integumentary Denies rash Psychiatric Psychiatric: Reports depression and suicidal ideation; Denies suicidal thoughts EXAM Physical Exam Const Vital Signs: 09/14/24 18:31 Temperature 98.7 F Temperature Source Oral Pulse Rate 75 Respiratory Rate 16 Blood Pressure 132/81 H Blood Pressure Mean 98 Pulse Ox 98 Oxygen Delivery Method Room Air Positive well nourished and well developed General Appearance ED: well developed and NAD HEENT Reports moist mucous membranes Eyes PERRL Neck supple Resp normal respiratory effort and clear to auscultation bilaterally Cardio Rate: regular rate Rhythm: regular rhythm GI non-tender and non-distended GI Narrative: Gravid abdomen with fundus at the level of the umbilicus Extremity normal to inspection General Extremety ED: Negative for edema General Extremity: Negative for edema Neuro oriented x3 Sensorium / Orientation: alert Motor Exam: Negative for general weakness Psych mental status grossly normal, thought process normal, cooperative, affect normal, speech normal, activity/motor behavior normal and denies hallucinations Activity / Motor Behavior: appropriate eye contact Speech: normal speech Mood & Affect: depressed and anxious Thought Process: normal thought process Thought Content: No suicidality, No homicidality, No delusion(s) and No hallucination(s) Memory / Cognition: memory grossly intact Insight: insight good Judgement: judgement good Skin Rashes: no rashes MDM MDM MDM Narrative Medical decision making narrative: Patient is evaluated for worsening depression and thoughts of self-harm. She does not have plan on how to harm herself. Patient is 24 weeks . She is medically cleared. She is found to have mild hypokalemia potassium of 3.3 and will be given some potassium replacement. She has a mild leukocytosis of 13.4 which is nonspecific. Patient is evaluated by crisis. She is contracted for safety. She feels to be good candidate for outpatient therapy. She is given outpatient resources. Is given return precautions. Patient is agreeable this plan of care. I think this is appropriate. Patient will also follow-up with her [facility]. Discharged home in stable condition. Lab Data Attestation: I reviewed the patient's lab results. Labs: Laboratory Results - last 24 hr 09/14/24 09/14/24 18:42 18:58 WBC 13.4 H RBC 4.24 Hgb 13.3 Hct 37.5 MCV 88.4 MCH 31.4 MCHC 35.5 RDW Std Deviation 43.3 RDW Coeff of Semaj 13.5 Plt Count 319 MPV 10.0 Immature Gran % (Auto) 0.400 Neut % (Auto) 70.3 H Lymph % (Auto) 20.7 [place] % (Auto) 6.1 Eos % (Auto) 2.2 Baso % (Auto) 0.3 Absolute Neuts (auto) 9.4 H Absolute Lymphs (auto) 2.77 Nucleated RBC % 0 Sodium 140 Potassium 3.3 L Chloride 110 H Carbon Dioxide 22.0 Anion Gap 8 BUN 3 L Creatinine 0.63 Estim Creat Clear Calc 158.06 Est GFR (MDRD) Af Amer 146 Est GFR (MDRD) Non-Af 121 BUN/Creatinine Ratio 4.7 L Glucose 96 Calcium 9.2 Serum , Qual POSITIVE Urine Opiates Screen NEGATIVE Urine Methadone Screen NEGATIVE Ur Barbiturates Screen NEGATIVE Ur Phencyclidine Scrn NEGATIVE Ur Amphetamines Screen NEGATIVE MDMA (Ecstasy) Screen NEGATIVE U Benzodiazepines Scrn NEGATIVE Urine Cocaine Screen NEGATIVE U Cannabinoids Screen NEGATIVE Ur Drug Screen Comment Ethyl Alcohol < 3.0 Discharge Plan Triage Chief Complaint: Suicidal ED Provider: Juana Kaur Dx/Rx/DC Orders Clinical Impression: Major depression, , Hypokalemia Instructions: ED Depression, ED Hypokalemia Prescriptions: No Action PNV-DHA 27 mg iron-1 mg -300 mg capsule 1 cap PO DAILY famotidine [Pepcid] 20 mg tablet 20 mg PO DAILY Qty: 30 6RF progesterone micronized [Prometrium] 200 mg capsule 200 mg vaginal QHS 30 Days Qty: 30 3RF aspirin 81 mg capsule 81 mg PO DAILY docusate sodium [Colace] 100 mg capsule 100 mg PO BID ondansetron 4 mg tablet,disintegrating 4 mg PO Q4H PRN (Reason: nausea and vomiting) Qty: 60 2RF Primary Care Provider: Dai Ordaz NP Referrals: Counseling,Center [Group of Physicians] - As soon as possible Dai Ordaz NP, [employer] [Primary Care Provider] - Print Language: Citizen Of [place] Disposition Disposition: Home, Self Care
[2024-09-14] MEDS: Potassium Chloride Oral Tablet 20 MEQ PO (23:15)
[2024-09-15 01:08] VITALS: BP 128/78; PULSE 74; RESP 16; TEMP 37.1; O2SAT 98
== END 2024-09-15 01:24 | disposition home or self-care (01) ==
PROVIDERS: Emergency Provider Emergency Medicine; PCP Registered Nurse; Visit Provider Emergency Medicine
DX: O99.342 Other mental disorders complicating pregnancy, second trimester (principal); O99.282 Endocrine, nutritional and metabolic diseases complicating pregnancy, second trimester; E87.6 Hypokalemia; F32.9 Major depressive disorder, single episode, unspecified; Z79.82 Long term (current) use of aspirin; Z3A.24 24 weeks gestation of pregnancy; Z79.899 Other long term (current) drug therapy
CPT/HCPCS: 80048; 80307; 82077; 84703; 85025; 99285

== ENCOUNTER 2024-10-15 16:10 | Outpatient (CLI) | payer SELFPAY ==
[2024-10-15 16:26] VITALS: BMI 33.6
[2024-10-15 16:28] VITALS: BP 122/80; PULSE 100; RESP 16; TEMP 36.4
[2024-10-15 16:58] LABS: Mucous, Urine 0 SEEN /hpf (<or=2+); Red Blood Cells-Urine 0 SEEN /hpf (0-5)
[2024-10-15 17:02] LABS: Color, Urine Yellow (Yellow); Glucose, Dipstick 50 mg/dl (Normal); Leukocyte Esterase-Dipstick 100 /ul (Negative); Nitrite-Dipstick Negative (Negative); Occult Blood-Urine Negative /ul (Negative); Protein-Dipstick 15 mg/dl (Negative); Urine Bilirubin Dipstick Negative (Negative); Urine Clarity Clear (Clear); Urine Urobilinogen Normal (Normal)
[2024-10-15 17:05] LABS: Ketone-Dipstick 150 mg/dl (Negative)
[2024-10-15 17:09] LABS: White Blood Cells 5-10 SEEN /hpf (0-5)
[2024-10-15 17:10] LABS: Bacteria 1+ /hpf (None Seen); Squamous Epithelial Cells - UA 0-5 SEEN /hpf (5-10)
[2024-10-15 17:50] LABS: Fetal Fibronectin Negative; Record Kit Lot#, fFN D4035
[2024-10-15] MEDS: Betamethasone/Betamethasone 30 MG/5 ML Vial 12 MG IM (19:08)
--- NOTE | 2024-10-20 08:53 | OB.TRI.HP_ITS ---
HPI - General HPI Narrative GLORY HARRELL, is a 24 F who presents with contractions every ten minutes for the last few hours, history of , dneies any vb lof admits good fm. no recent infections. Maternal Data Information ELIJAH Calculator Estimated Delivery Date Method Current WG Current Estimate 01/02/25 LMP (Certain) 29w 3d PFSH PFSH Medical History OCD (obsessive compulsive disorder) PTSD (post-traumatic stress disorder) Major depression Vaginal delivery Family history of hearing loss at age younger than 7 years History of pre-term labor depression Anxiety Home Medications ?Medication ?Instructions ?Recorded ?Last Taken ?Type ondansetron 4 mg disintegrating 4 mg PO Q4H PRN nausea and 05/19/24 10/15/24 09:00 Rx tablet vomiting #60 tabs 4 mg multivitamin no.47-iron fum 27 1 cap PO DAILY 06/04/24 10/15/24 09:00 History mg-folate no.1 1 mg-dha 300 mg 1 cap capsule (PNV-DHA) docusate sodium 100 mg capsule 100 mg PO BID 06/26/24 10/15/24 21:00 History (Colace) famotidine 20 mg tablet (Pepcid) 20 mg PO DAILY #30 tabs 07/06/24 10/15/24 21:30 Rx progesterone micronized 200 mg 200 mg vaginal QHS 30 days #30 caps 07/06/24 10/15/24 21:00 Rx capsule (Prometrium) aspirin 81 mg capsule 81 mg PO DAILY 09/14/24 10/15/24 21:00 History buspirone 15 mg tablet 15 mg PO TID PRN anxiety #90 tabs 10/14/24 Unknown Rx sertraline 50 mg tablet 50 mg PO DAILY 10/15/24 10/15/24 21:00 History Allergy/AdvReac Type Severity Reaction Status Date / Time No Known Allergies Allergy Verified 10/16/24 19:29 Family History Grandfather Spina bifida unconfirmed Surgical History H/O hernia repair History of cholecystectomy History of tonsillectomy Social History adopted: No household members: spouse and children housing: house number of children: 3 current occupational status: unemployed 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 current occupational exposures/hazards: No pets and animals: Yes (Avoid litterbox) pets and animals: cat(s) and dog(s) history of recent travel: Yes ([place]) out of state: Yes out of country: No sexually active: Yes Smoking Status: Never smoker alcohol intake: never substance use type: does not use well-balanced diet: daily or most days caffeine: No (occasional) eating out: rarely or never during the past year weight has: decreased > 10 lbs what type of physical activity do you participate in: walking frequency: 3-4 times per week duration: 45-60 minutes/day charlie/hoahaoism: Rastafari seatbelt use: always do you feel safe at home: Yes additional social history: Dagoberto- Works for [employer] 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 Date Name GA/Weeks Outcome Route Bth Weight Gen Labor Lgth Anesthesia Del Locatn Provider FOB 05/12/18 [place]aline 32 live - 4lb 7 oz Female s tarted at 20 weeks none [facility] 09/08/19 [place] 34 live - 6.10 Female none [facility] Dr. Mika Arenas 12/20/22 [place] 35 live - 6#6oz Female epid ural [facility] Rosalba Arenas Delivery Date: 09/08/19 Last Updated by: Delia Street transferred to [facility] Visit Details Expected Delivery Route/Plan Labor Preferences- CB/BF classes: [] labor support person: [] labor intervention preferences: [] pain management options preferred: [] cut cord/dad catch: [] : [] PP control planned: [] discussed possible routes of delivery and associated risks: [] special requests: [] Plans Covid status: [] Flu vaccine: given Tdap vaccine: [] Rhogam: [] LARC form signed: [] Problem list reviewed and updated with the most current plan of care details and appropriate orders placed. Relevant counseling for the gestational age provided. Continue routine care and follow up unless otherwise noted in visit notes/problem list details OB Flowsheet Initial Weight: Not Recorded Date -?-?-?-?-?-?-?-?-?-?-?-?- EGA Weight BP Urine Prot -?-?-?-?-?-?-?-?-?-?-?-?- Glucose FHR FuHt Pres Dilation -?-?-?-?-?-?-?-?-?-?-?-?- Effaced St Visit Note 06/07/24 -?-?-?--?-?-?-?-?-?-?-?-?- 10w 1d 208 lb 4 oz 122/74 -?-?-?-?-?-?-?-?-?-?-?-?- 157 -?-?-?-?-?-?-?-?-?-?-?-?- KW-CRL 37mm. acc epts NIPT. MFM consult for hx of x 3. 07/06/24 -?-?-?-?-?-?-?-?-?-?-?-?- 14w 2d 201 lb 113/76 Negative -?-?-?-?-?-?-?-?-?-?-?-?- Negative 150 -?-?-?-?-?-?-?-?-?-?-?-?- Sm- no vb lof cr maping, having mood symptoms, nausea, wants to take progesterone. will start zolof tand pepcid and prometrium, compazine. refer to mann bravo or gladis 419 08/05/24 -?-?-?-?-?-?-?-?-?-?-?-?- 18w 4d 200 lb 4 oz 108/74 Nega tive -?-?-?-?-?-?-?-?-?-?-?-?- Negative 142 -?-?-?-?-?-?-?-?-?-?-?--?- JV- just had CL and it is 4.0-4.2 cm. taking medications above. has not needed the hope 419 yet. struggles with migraines. 09/02/24 -?-?-?-?-?-?-?-?-?-?-?-?- 22w 4d 205 lb 109/76 Negative -?-?-?-?-?-?-?-?-?-?-?-?- 250 g/dL A* 150 -?-?-?-?-?-?-?-?-?-?-?-?- MH-No Vb, LOF. G ood Fm. Will go ahead with GCT this week as she only had water to drink today and no UTI symptoms. Flu given 09/28/24 -?-?-?-?-?-?-?-?-?-?-?-?- 26w 2d 208 lb 110/75 Negative -?-?-?-?-?-?-?-?-?-?-?-?- Negative 155 26 -?-?-?-?-?-?-?-?-?-?-?-?- KW- no vb/crampi ng. good fm. Would like to increase Zoloft to 100mg 10/14/24 -?-?-?-?-?-?-?-?-?-?-?-?- 28w 4d 211 lb 8 oz 110/76 Nega tive -?-?-?-?-?-?-?-?-?-?-?-?- Negative 150 28 -?-?-?-?-?-?-?-?-?-?-?-?- JV- zoloft not h elping. She is starting to have anxiety about pTL. has a daughter that is disabled due to ptl. sending note to Dr. Springer and starting buspar. no other complaints today. ROS Constitutional Constitutional: Reports systems reviewed and no addt'l complaints, except as documented and as per HPI ENT HEENT: Reports systems reviewed and no addt'l complaints, except as documented Cardiovascular Cardiovascular: Reports systems reviewed and no addt'l complaints, except as documented Respiratory/Chest Respiratory/Chest: Reports systems reviewed and no addt'l complaints, except as documented Gastrointestinal Gastrointestinal: Reports as per HPI Genitourinary Genitourinary: Reports as per HPI Musculoskeletal Musculoskeletal: Reports systems reviewed and no addt'l complaints, except as documented Integumentary Integumentary: Reports systems reviewed and no addt'l complaints, except as documented Neurologic Neurologic: Reports systems reviewed and no addt'l complaints, except as documented Physical Exam Const alert, oriented x3 and no apparent distress HEENT Head and Scalp: normocephalic and atraumatic Neck full ROM and no lymphadenopathy Chest inspection of chest normal Resp normal respiratory effort GI GI Narrative: gravid, abdomen nontender, AGA Manual OB Exam: dilated 0, effaced and station NST FHR Rate Baby A Baseline: 135 Variability:: Moderate Accelerations:: 15 x 15 Decelerations:: None NST Reactive:: Yes FHR Category:: Category I Uterine Activity:: no regular Assessment & Plan (1) Threatened labor: (2) : QUALIFIERS: Weeks of gestation: 29 weeks Qualified Code(s): Z3A.29 - 29 weeks gestation of COMMENT: NIPT low risk. Horizon neg Charges/Coding Multi Select Codes Visit Charges Office Visit/Consults: 21385 OV L3 Est 20min Urinary/Genital Urinary/Genital CPT Codes: 91485-57 non-stress test Interp
== END 2024-10-15 18:59 | disposition home or self-care (01) ==
LOC: WPOUT 16:19 → WP 16:19
PROVIDERS: PCP Registered Nurse; Referring Provider Obstetrics & Gynecology; Visit Provider Obstetrics & Gynecology
DX: O47.03 False labor before 37 completed weeks of gestation, third trimester (principal); O99.343 Other mental disorders complicating pregnancy, third trimester; F42.9 Obsessive-compulsive disorder, unspecified; F32.9 Major depressive disorder, single episode, unspecified; F41.9 Anxiety disorder, unspecified; Z79.899 Other long term (current) drug therapy; Z79.82 Long term (current) use of aspirin; Z3A.29 29 weeks gestation of pregnancy
CPT/HCPCS: 59025; 59050; 81001; 82731; 87086; 87088; 96372; 99221; G0378; J0702

== ENCOUNTER 2024-10-16 19:05 | Outpatient (CLI) | payer SELFPAY ==
[2024-10-16 19:20] VITALS: BMI 33.3
[2024-10-16] MEDS: Betamethasone/Betamethasone 30 MG/5 ML Vial 12 MG IM (19:31)
--- NOTE | 2024-10-16 19:33 | NURSING ---
[facility] pt only.
== END 2024-10-16 19:34 | disposition home or self-care (01) ==
LOC: WPOUT 19:18 → WP 19:18
PROVIDERS: PCP Registered Nurse; Referring Provider Obstetrics & Gynecology; Visit Provider Obstetrics & Gynecology
DX: O47.9 False labor, unspecified (principal); Z3A.00 Weeks of gestation of pregnancy not specified
CPT/HCPCS: 96372; 99221; G0378; J0702

== ENCOUNTER → 2024-11-25 | Outpatient (CLI) | payer SELFPAY ==
[2024-11-25 10:43] LABS: Absolute Lymphocyte Count 2.93 X10^3/uL (0.83-4.51); Absolute Neutrophil Count 13.6 X10^3/uL (2.0-7.7); Basophil# 0.07 X10^3/uL; Basophil% 0.4 % (0-1); Eosinophil# 0.21 X10^3/uL; Eosinophils% 1.2 % (0-5); Hematocrit 37.7 % (37-47); Lymphocyte # 2.93 X10^3/ul (0.83-4.51); Lymphocyte % 16.5 % (19-41); Mean Corp Hgb Conc 34.5 g/dL (32-36); Mean Corpuscular Hgb 30.8 pg (27.0-32.0); Mean Corpuscular Volume 89.3 fL (81-99); Mean Platelet Vol. 9.8 fl (6.2-12.0); Monocyte# 0.95 X10^3/uL; Monocyte% 5.3 % (0-10); NRBC Flagged by Analyzer 0 % (0-5); Neutrophil # 13.56 X10^3/uL (2.7-7.7); Neutrophil % 76.1 % (47-70); Platelet Count 322 K/mm3 (150-450); RBC Distribution Width CV 12.4 % (11.6-14.6); RBC Distribution Width SD 39.8 fl (35.1-43.9); Red Blood Count 4.22 M/mm3 (4.2-5.4); White Blood Count 17.8 K/mm3 (4.4-11.0)
[2024-11-25 10:54] LABS: Creatinine, Urine (random) < 13.00 mg/dL (NO RANGE EST.); Protein, Urine (Random) < 6.0 mg/dL (<11.9)
[2024-11-25 11:02] LABS: ALB/GLOB Ratio 0.6 RATIO (0.9-2.4); AST(SGOT) 12 U/L (15-37); Alanine Aminotransfer ALT/SGPT 13 U/L (13-56); Albumin, Serum 2.8 g/dL (3.2-5.0); Alkaline Phosphatase 88 U/L (45-117); Anion Gap 10 (5-15); BUN 4 mg/dL (7-18); BUN/Creat Ratio 5.7 RATIO (10-20); Calcium,Total 8.6 mg/dL (8.5-10.1); Chloride 107 mmol/L (98-107); EST Glomerular Filtration Rate 108 mL/min (>60); Est Glom Filt Rate - Afr Amer 130 mL/min (>60); Globulin 4.4 g/dL (2.2-4.2); Glucose 81 mg/dL (74-106); Potassium 3.8 mmol/L (3.5-5.1); Protein, Total 7.2 g/dL (6.4-8.2); Sodium Level 137 mmol/L (136-145)
== END | disposition home or self-care (01) ==
LOC: BWCLAB 10:32
PROVIDERS: PCP Registered Nurse; Referring Provider Obstetrics & Gynecology; Visit Provider Obstetrics & Gynecology
DX: O09.92 Supervision of high risk pregnancy, unspecified, second trimester (principal); R51.9 Headache, unspecified; Z3A.00 Weeks of gestation of pregnancy not specified
CPT/HCPCS: 36415; 80053; 82570; 84156; 85025; 87081

== ENCOUNTER 2024-12-03 17:20 | Outpatient (CLI) | payer SELFPAY ==
[2024-12-03 17:30] VITALS: BMI 34.1
[2024-12-03 17:51] VITALS: BP 123/79; PULSE 92; O2SAT 98
--- NOTE | 2024-12-03 19:39 | OB.TRI.HP_ITS ---
HPI - General General Date of Service: 12/03/24 HPI Narrative GLORY HARRELL, is a 24 F who presents at 35.5 with mild contractions, hx of labor and delivery. has been treated with steroids in past. denies lof/vb. has good fm. Maternal Data Information ELIJAH Calculator Estimated Delivery Date Method Current WG Current Estimate 01/02/25 LMP (Certain) 35w 5d PFSH PFSH Medical History OCD (obsessive compulsive disorder) PTSD (post-traumatic stress disorder) Major depression Vaginal delivery Family history of hearing loss at age younger than 7 years History of pre-term labor depression Anxiety Home Medications ?Medication ?Instructions ?Recorded ?Last Taken ?Type ondansetron 4 mg disintegrating 4 mg PO Q4H PRN nausea and 05/19/24 12/02/24 17:00 Rx tablet vomiting #60 tabs multivitamin no.47-iron fum 27 1 cap PO DAILY 06/04/24 12/03/24 07:00 History mg-folate no.1 1 mg-dha 300 mg capsule (PNV-DHA) docusate sodium 100 mg capsule 100 mg PO BID 06/26/24 12/03/24 07:00 History (Colace) famotidine 20 mg tablet (Pepcid) 20 mg PO DAILY #30 tabs 07/06/24 12/02/24 20:00 Rx aspirin 81 mg capsule 81 mg PO DAILY 09/14/24 12/02/24 20:00 History buspirone 15 mg tablet 15 mg PO TID PRN anxiety #90 tabs 10/14/24 12/02/24 20:00 Rx progesterone micronized 200 mg 200 mg vaginal QHS 30 days #30 caps 10/28/24 12/02/24 20:00 Rx capsule (Prometrium) sertraline 100 mg tablet (Zoloft) 100 mg PO QDAY #30 tabs 10/28/24 12/02/24 20:00 Rx Allergy/AdvReac Type Severity Reaction Status Date / Time No Known Allergies Allergy Verified 12/03/24 17:44 Family History Grandfather Spina bifida unconfirmed Surgical History H/O hernia repair History of cholecystectomy History of tonsillectomy Social History adopted: No household members: spouse and children housing: house number of children: 3 current occupational status: unemployed 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 current occupational exposures/hazards: No pets and animals: Yes (Avoid litterbox) pets and animals: cat(s) and dog(s) history of recent travel: Yes ([place]) out of state: Yes out of country: No sexually active: Yes Smoking Status: Never smoker alcohol intake: never substance use type: does not use well-balanced diet: daily or most days caffeine: No (occasional) eating out: rarely or never during the past year weight has: decreased > 10 lbs what type of physical activity do you participate in: walking frequency: 3-4 times per week duration: 45-60 minutes/day charlie/jewish: Restorationist seatbelt use: always do you feel safe at home: Yes additional social history: Dagoberto- Works for [employer] 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 Date Name GA/Weeks Outcome Route Bth Weight Gen Labor Lgth Anesthesia Del Locatn Provider FOB 05/12/18 adaline 32 live - 4lb 7 oz Female s tarted at 20 weeks none [facility] 09/08/19 [place] 34 live - 6.10 Female none [facility] Dr. Mika Arenas 12/20/22 Mellissa 35 live - 6#6oz Female epid ural [facility] Rosalba Arenas Delivery Date: 09/08/19 Last Updated by: Delia Street transferred to [facility] Visit Details Expected Delivery Route/Plan Labor Preferences- CB/BF classes: [] labor support person: [] labor intervention preferences: [] pain management options preferred: [] cut cord/dad catch: [] : [] PP control planned: [] discussed possible routes of delivery and associated risks: [] special requests: [] Plans Covid status: [] Flu vaccine: given Tdap vaccine: [] Rhogam: [] LARC form signed: [] Problem list reviewed and updated with the most current plan of care details and appropriate orders placed. Relevant counseling for the gestational age provided. Continue routine care and follow up unless otherwise noted in visit notes/problem list details OB Flowsheet Initial Weight: Not Recorded Date -?-?-?-?-?-?-?-?-?-?-?-?- EGA Weight BP Urine Prot -?-?-?-?-?-?-?-?-?-?-?-?- Glucose FHR FuHt Pres Dilation -?-?-?-?-?-?-?-?-?-?-?-?- Effaced St Visit Note 06/07/24 -?-?-?-?-?-?-?-?-?-?-?-?- 10w 1d 208 lb 4 oz 122/74 -?-?-?-?-?-?-?-?-?-?-?-?- 157 -?-?-?-?-?-?-?-?-?-?-?-?- KW-CRL 37mm. acc epts NIPT. MFM consult for hx of x 3. 07/06/24 -?-?-?-?-?-?-?-?-?-?-?-?- 14w 2d 201 lb 113/76 Negative -?-?-?-?-?-?-?-?-?-?-?-?- Negative 150 -?-?-?-?-?-?-?-?-?-?-?-?- Sm- no vb lof cr maping, having mood symptoms, nausea, wants to take pr ogesterone. will start zolof tand pepcid and prometrium, compazine. refer to mann bravo or gladis 419 08/05/24 -?-?-?-?-?-?-?-?-?-?-?-?- 18w 4d 200 lb 4 oz 108/74 Nega tive -?-?-?-?-?-?-?-?-?-?-?-?- Negative 142 -?-?-?-?-?-?-?-?-?-?-?-?- JV- just had CL and it is 4.0-4.2 cm. taking medications above. has not needed the hope 419 yet. struggles with migraines. 09/02/24 -?-?-?-?-?-?-?-?-?-?-?-?- 22w 4d 205 lb 109/76 Negative -?-?-?-?-?-?-?-?-?-?-?-?- 250 g/dL A* 150 -?-?-?-?-?-?-?-?-?-?-?-?- MH-No Vb, LOF. G ood Fm. Will go ahead with GCT this week as she only had water to drink today and no UTI symptoms. Flu given 09/28/24 -?--?-?-?-?-?-?-?-?-?-?-?- 26w 2d 208 lb 110/75 Negative -?-?-?-?-?-?-?-?-?-?-?-?- Negative 155 26 -?-?-?-?-?-?-?-?-?-?-?-?- KW- no vb/crampi ng. good fm. Would like to increase Zoloft to 100mg 10/14/24 -?-?-?-?-?-?-?-?-?-?-?-?- 28w 4d 211 lb 8 oz 110/76 Nega tive -?-?-?-?-?-?-?-?-?-?-?-?- Negative 150 28 -?-?-?-?-?-?-?-?-?-?-?-?- JV- zoloft not h elnash. She is starting to have anxiety about pTL. has a daughter that is disabled due to ptl. sending note to Dr. Springer and starting kayla. no other complaints today. 10/28/24 -?-?-?-?-?-?-?-?-?-?-?-?- 30w 4d 215 lb 122/83 Negative -?-?-?-?-?-?-?-?-?-?-?-?- Negative 145 32 -?-?-?-?-?-?-?-?-?-?-?-?- JV- increasing z oloft to 125 mg. she will take a 100 mg tab and cut the 50's that she has in half. zoloft refilled. 11/12/24 -?-?-?-?-?-?-?-?-?-?-?-?- 32w 5d 216 lb 5 oz 112/60 Nega tive -?-?-?-?-?-?-?-?-?-?-?-?- 250 g/dL 135 33 -?-?-?-?-?-?-?-?-?-?-?-?- LC- no vb/ctx/lo f. good fm. no changes in zoloft, is not feeling like helping or hurting. no intrusive thoughts. 11/25/24 -?-?-?-?-?-?-?-?-?-?-?-?- 34w 4d 216 lb 4 oz 134/84 Nega tive -?-?-?-?-?-?-?-?-?-?-?-?- Negative 144 35 Cephalic 2 .5 -?-?-?-?-?-?-?-?-?-?-?-?- 60 -3 JV- having contractions sometimes up to 3 minutes apart. she is having headaches . was breech last visit. JV- having contractions some times up to 3 minutes apart. she is having headaches . was breech last visit. bp slightly elevated today. PIH labs ordered. gbs collected. labor precautions discussed. JV- having contractions some times up to 3 minutes apart. she is having headaches . was breech last visit. bp slightly elevated today. PIH labs ordered. gbs collected. labor precautions discussed. 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 she weighs about 40 -50 pounds. recommend rest today and return to triage if symptoms worsen. will call with labs. NST FHR Rate Baby A Baseline: 130 Variability:: Moderate Accelerations:: 15 x 15 Decelerations:: None NST Reactive:: Yes FHR Category:: Category I Uterine Activity:: 2-5 mild to palp per nursing Assessment & Plan (1) Threatened labor: (2) Obesity (BMI 30.0-34.9): COMMENT: HgbA1c WNL (3) Supervision of high-risk : QUALIFIERS: Trimester: second trimester Qualified Code(s): O09.92 - Supervision of high risk , unspecified, second trimester COMMENT: PRR, , ELIJAH [birth year], boy,PC Adaline, [place], Mellissa Dagoberto (4) : QUALIFIERS: Weeks of gestation: 34 weeks Qualified Code(s): Z3A .34 - 34 weeks gestation of COMMENT: GBS Negative, NIPT low risk. Horizon neg PLAN: Plan Patient presents for triage evaluation secondary to contractions. no change in cervical exam, not worsening in discomfort or intensity. FHT: Moderate variability reactive no decelerations category I tracing [place]: irregular Contractions Assessment and plan: Reactive NST, reassuring maternal and status patient discharged to home to follow-up in office or as needed if worsening ctx. See problem list details for additional plan information. Charges/Coding Multi Select Codes Urinary/Genital Urinary/Genital CPT Codes: 77483-20 non-stress test Interp
== END 2024-12-03 19:52 | disposition home or self-care (01) ==
LOC: WPOUT 17:26 → WP 17:27
PROVIDERS: PCP Registered Nurse; Referring Provider Registered Nurse; Visit Provider Registered Nurse
DX: O47.03 False labor before 37 completed weeks of gestation, third trimester (principal); Z3A.35 35 weeks gestation of pregnancy; Z79.899 Other long term (current) drug therapy
CPT/HCPCS: 59025; 59050; 99221; G0378

== ENCOUNTER 2024-12-05 07:50 | Inpatient (IN) | payer SELFPAY ==
[2024-12-05] VITALS (35 sets, daily range): BP systolic 106–150; BP diastolic 50–91; PULSE 63–182; RESP 16–18; TEMP 36.6–37; O2SAT 91–100; BMI 33.6
[2024-12-05] MEDS: Lactated Ringers 1,000 ML 999 ML IV (08:15)
[2024-12-05 08:30] LABS: Absolute Lymphocyte Count 2.46 X10^3/uL (0.83-4.51); Absolute Neutrophil Count 7.4 X10^3/uL (2.0-7.7); Basophil# 0.04 X10^3/uL; Basophil% 0.4 % (0-1); Eosinophil# 0.16 X10^3/uL; Eosinophils% 1.5 % (0-5); Hematocrit 35.9 % (37-47); Hemoglobin 12.7 g/dL (12.0-15.0); Lymphocyte # 2.46 X10^3/ul (0.83-4.51); Mean Corp Hgb Conc 35.4 g/dL (32-36); Mean Corpuscular Hgb 31.4 pg (27.0-32.0); Mean Corpuscular Volume 88.6 fL (81-99); Mean Platelet Vol. 10.1 fl (6.2-12.0); Monocyte# 0.63 X10^3/uL; Monocyte% 5.9 % (0-10); NRBC Flagged by Analyzer 0 % (0-5); Neutrophil # 7.35 X10^3/uL (2.7-7.7); Neutrophil % 68.8 % (47-70); Platelet Count 320 K/mm3 (150-450); RBC Distribution Width CV 12.3 % (11.6-14.6); RBC Distribution Width SD 39.5 fl (35.1-43.9); Red Blood Count 4.05 M/mm3 (4.2-5.4); White Blood Count 10.7 K/mm3 (4.4-11.0)
--- NOTE | 2024-12-05 08:39 | HP.PCM.OB_ITS ---
HPI - General General Date of Admission: 12/05/24 HPI Narrative GLORY HARRELL, is a 24 F who presents IAL 5-6 cm dilated regular ctx h/o PTB no vb lof good fm Maternal Data Information ELIJAH Calculator Estimated Delivery Date Method Current WG Current Estimate 01/02/25 LMP (Certain) 36w 0d PFSH PFSH Medical History OCD (obsessive compulsive disorder) PTSD (post-traumatic stress disorder) Major depression Vaginal delivery Family history of hearing loss at age younger than 7 years History of pre-term labor depression Anxiety Home Medications ?Medication ?Instructions ?Recorded ?Last Taken ?Type ondansetron 4 mg disintegrating 4 mg PO Q4H PRN nausea and 05/19/24 12/02/24 17:00 Rx tablet vomiting #60 tabs multivitamin no.47-iron fum 27 1 cap PO DAILY 06/04/24 12/03/24 07:00 History mg-folate no.1 1 mg-dha 300 mg capsule (PNV-DHA) docusate sodium 100 mg capsule 100 mg PO BID 06/26/24 12/03/24 07:00 History (Colace) famotidine 20 mg tablet (Pepcid) 20 mg PO DAILY #30 tabs 07/06/24 12/02/24 20:00 Rx aspirin 81 mg capsule 81 mg PO DAILY 09/14/24 12/02/24 20:00 History buspirone 15 mg tablet 15 mg PO TID PRN anxiety #90 tabs 10/14/24 12/02/24 20:00 Rx progesterone micronized 200 mg 200 mg vaginal QHS 30 days #30 caps 10/28/24 12/02/24 20:00 Rx capsule (Prometrium) sertraline 100 mg tablet (Zoloft) 100 mg PO QDAY #30 tabs 10/28/24 12/02/24 20:00 Rx Allergy/AdvReac Type Severity Reaction Status Date / Time No Known Allergies Allergy Verified 12/03/24 17:44 Family History Grandfather Spina bifida unconfirmed Surgical History H/O hernia repair History of cholecystectomy History of tonsillectomy Social History adopted: No household members: spouse and children housing: house number of children: 3 current occupational status: unemployed 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 current occupational exposures/hazards: No pets and animals: Yes (Avoid litterbox) pets and animals: cat(s) and dog(s) history of recent travel: Yes ([place]) out of state: Yes out of country: No sexually active: Yes Smoking Status: Never smoker alcohol intake: never substance use type: does not use well-balanced diet: daily or most days caffeine: No (occasional) eating out: rarely or never during the past year weight has: decreased > 10 lbs what type of physical activity do you participate in: walking frequency: 3-4 times per week duration: 45-60 minutes/day charlie/jewish: Jain seatbelt use: always do you feel safe at home: Yes additional social history: Dagoberto- Works for [employer] 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 Date Name GA/Weeks Outcome Route Bth Weight Gen Labor Lgth Anesthesia Del Locatn Provider FOB 05/12/18 adaline 32 live - 4lb 7 oz Female s tarted at 20 weeks none [facility] 09/08/19 [place] 34 live - 6.10 Female none [facility] Dr. Mika Arenas 12/20/22 Mell[place] 35 live - 6#6oz Female epid ural [facility] Rosalba Arenas Delivery Date: 09/08/19 Last Updated by: Delia Street transferred to [facility] Visit Details Expected Delivery Route/Plan Labor Preferences- CB/BF classes: [] labor support person: [] labor intervention preferences: [] pain management options preferred: [] cut cord/dad catch: [] : [] PP control planned: [] discussed possible routes of delivery and associated risks: [] special requests: [] Plans Covid status: [] Flu vaccine: given Tdap vaccine: [] Rhogam: [] LARC form signed: [] Problem list reviewed and updated with the most current plan of care details and appropriate orders placed. Relevant counseling for the gestational age provided. Continue routine care and follow up unless otherwise noted in visit notes/problem list details OB Flowsheet Initial Weight: Not Recorded Date -?-?-?-?-?-?-?-?-?-?-?-?- EGA Weight BP Urine Prot -?-?-?-?-?-?-?-?-?-?-?-?- Glucose FHR FuHt Pres Dilation -?-?-?-?-?-?-?-?-?-?-?-?- Effaced St Visit Note 06/07/24 -?-?-?-?-?-?-?-?-?-?-?-?- 10w 1d 208 lb 4 oz 122/74 -?-?-?-?-?-?-?-?-?-?-?-?- 157 -?-?-?-?-?-?-?-?-?-?-?-?- KW-CRL 37mm. acc epts NIPT. MFM consult for hx of x 3. 07/06/24 -?-?-?-?-?-?-?-?-?-?-?-?- 14w 2d 201 lb 113/76 Negative -?-?-?-?-?-?-?-?-?-?-?-?- Negative 150 -?-?-?-?-?-?-?-?-?-?-?-?- Sm- no vb lof cr maping, having mood symptoms, nausea, wants to take progesterone. will start zolof tand pepcid and prometrium, compazine. refer to mann bravo or gladis 419 08/05/24 -?-?-?-?-?-?-?-?-?-?-?-?- 18w 4d 200 lb 4 oz 108/74 Nega tive -?-?-?-?-?-?-?-?-?-?-?-?- Negative 142 -?-?--?-?-?-?-?-?-?-?-?-?- JV- just had CL and it is 4.0-4.2 cm. taking medications above. has not needed the hope 419 yet. struggles with migraines. 09/02/24 -?-?-?-?-?-?-?-?-?-?-?-?- 22w 4d 205 lb 109/76 Negative -?-?-?-?-?-?-?-?-?-?-?-?- 250 g/dL A* 150 -?-?-?-?-?-?-?-?-?-?-?-?- MH-No Vb, LOF. G ood Fm. Will go ahead with GCT this week as she only had water to drink today and no UTI symptoms. Flu given 09/28/24 -?-?-?-?-?-?-?-?-?-?-?-?- 26w 2d 208 lb 110/75 Negative -?-?-?-?-?-?-?--?-?-?-?-?- Negative 155 26 -?-?-?-?-?-?-?-?-?-?-?-?- KW- no vb/crampi ng. good fm. Would like to increase Zoloft to 100mg 10/14/24 -?-?-?-?-?-?-?-?--?-?-?-?- 28w 4d 211 lb 8 oz 110/76 Nega tive -?-?-?-?-?-?-?-?-?-?-?-?- Negative 150 28 -?-?-?-?-?-?-?-?-?-?-?-?- JV- zoloft not h elping. She is starting to have anxiety about pTL. has a daughter that is disabled due to ptl. sending note to Dr. Springer and starting kayla. no other complaints today. 10/28/24 -?-?-?-?-?-?-?-?-?--?-?-?- 30w 4d 215 lb 122/83 Negative -?-?-?-?-?-?-?-?-?-?-?-?- Negative 145 32 -?-?-?-?-?-?-?-?-?-?-?-?- JV- increasing z oloft to 125 mg. she will take a 100 mg tab and cut the 50's that she has in half. zoloft refilled. 11/12/24 -?-?-?-?-?-?-?-?-?-?-?-?- 32w 5d 216 lb 5 oz 112/60 Nega tive -?--?-?-?-?-?-?-?-?-?-?-?- 250 g/dL 135 33 -?-?-?-?-?-?-?-?-?-?-?-?- LC- no vb/ctx/lo f. good fm. no changes in zoloft, is not feeling like helping or hurting. no intrusive thoughts. 11/25/24 -?-?-?-?-?-?-?-?-?-?-?-?- 34w 4d 216 lb 4 oz 134/84 Nega tive -?-?-?-?-?-?-?-?-?-?-?-?- Negative 144 35 Cephalic 2 .5 -?-?-?-?-?-?-?-?-?-?-?-?- 60 -3 JV- having contractions sometimes up to 3 minutes apart. she is having headaches . was breech last visit. JV- having contractions some times up to 3 minutes apart. she is having headaches . was breech last visit. bp slightly elevated today. PIH labs ordered. gbs collected. labor precautions discussed. JV- having contractions some times up to 3 minutes apart. she is having headaches . was breech last visit. bp slightly elevated today. PIH labs ordered. gbs collected. labor precautions discussed. 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 she weighs about 40 -50 pounds. recommend rest today and return to triage if symptoms worsen. will call with labs. NST FHR Rate Baby A Baseline: 140 Variability:: Moderate Accelerations:: 15 x 15 Decelerations:: None NST Reactive:: Yes FHR Category:: Category I Uterine Activity:: q3-5 ROS Constitutional Constitutional: Reports systems reviewed and no addt'l complaints, except as documented ENT HEENT: Reports systems reviewed and no addt'l complaints, except as documented Cardiovascular Cardiovascular: Reports systems reviewed and no addt'l complaints, except as documented Respiratory/Chest Respiratory/Chest: Reports systems reviewed and no addt'l complaints, except as documented Gastrointestinal Gastrointestinal: Reports systems reviewed and no addt'l complaints, except as documented and nausea; Denies abdominal pain Genitourinary Genitourinary: Reports systems reviewed and no addt'l complaints, except as documented, contractions Details: present and frequency (regular ) and movement Details: present Musculoskeletal Musculoskeletal: Reports systems reviewed and no addt'l complaints, except as documented Integumentary Integumentary: Reports as per HPI Neurologic Neurologic: Reports systems reviewed and no addt'l complaints, except as documented Endocrine Endocrinology: Reports systems reviewed and no addt'l complaints, except as documented Vital Signs Vital Signs Vital Signs: 12/05/24 07:40 12/05/24 07:40 12/05/24 07:59 Temperature Temperature Source Pulse Rate 107 H Respiratory Rate Blood Pressure 127/85 H BP Systolic 127 BP Diastolic 85 Pulse Ox 99 12/05/24 07:59 12/05/24 08:04 12/05/24 08:04 Temperature Temperature Source Temporal Pulse Rate 90 Respiratory Rate 18 Blood Pressure BP Systolic BP Diastolic Pulse Ox 12/05/24 08:04 12/05/24 08:14 12/05/24 08:14 Temperature 97.9 F Temperature Source Pulse Rate 79 Respiratory Rate Blood Pressure 126/87 H BP Systolic 126 BP Diastolic 87 Pulse Ox 12/05/24 08:24 12/05/24 08:24 12/05/24 08:29 Temperature Temperature Source Pulse Rate 95 Respiratory Rate Blood Pressure 131/72 H BP Systolic 131 BP Diastolic 72 Pulse Ox 100 12/05/24 08:29 Temperature Temperature Source Pulse Rate 88 Respiratory Rate Blood Pressure BP Systolic BP Diastolic Pulse Ox Weight Weight: 215 lb Body Mass Index (BMI) 33.6 Physical Exam Const alert, oriented x3 and healthy appearing Constitutional Narrative: uncomfortable with contractions HEENT normocephalic and moist oral mucous membranes Head and Scalp: atraumatic Neck full ROM, no lymphadenopathy, supple and thyroid normal General: trachea midline Thyroid: thyroid normal Lymph Lymphatic: no lymphadenopathy noted Chest inspection of chest normal Resp normal respiratory effort Cardio regular rate GI soft to palpation and non-tender GI Narrative: gravid Inspection: gravid external exam normal Bimanual Exam - Vag & Uterus: uterus non-tender Manual OB Exam: estimated gestational size appropriate, presentation cephalic, dilated, effaced and station Extremity normal to inspection General Extremity: Negative for edema Skin no rashes or lesions noted Neuro deep tendon reflexes 2+ bilaterally Motor Exam: strength 5/5 throughout and clonus absent Psych mental status grossly normal Labs Labs Labs: Blood Type A POSITIVE Antibody Screen NEGATIVE Hct 35.9 % (37-47) L Hgb 12.7 g/dL (12.0-15.0) Obstetrics Ultrasound Syphilis Total Ab Non-reactive Rubella IgG Antibody Reactive (Nonreactive) Hep Bs Antigen Non-Reactive (Nonreactive) Hepatitis C Antibody Non-Reactive (Nonreactive) Chlamydia DNA (KATEY) Negative (Negative) N.gonorrhoeae DNA (KATEY) Negative (Negative) HIV 1&2 Antibody Non-Reactive (Nonreactive) Glucose 1 Hr 50 gm 127 mg/dL (70-140) Gest Glucose Tolerance MG/DL Group B Strep DNA Negative (Negative) Rhogam given: No Miscellaneous Test Assessment & Plan (1) Active labor at term: (2) Supervision of high-risk : QUALIFIERS: Trimester: second trimester Qualified Code(s): O09.92 - Supervision of high risk , unspecified, second trimester COMMENT: PRR, , ELIJAH [birth year], boy,PC Adaltalisha, Mellissa Saleem Dagoberto (3) : QUALIFIERS: Weeks of gestation: 34 weeks Qualified Code(s): Z3A.34 - 34 weeks gestation of COMMENT: GBS Negative, NIPT low risk. Horizon neg (4) Hx of delivery, currently : COMMENT: MFM consult- progesterone used in last pregnancies but not necessarily indicated based on newer evidence. after discussing with patient, wants to continue this - ordered vaginl 200mg nightly, CL US q 2 weeks at 16 weeks. Delivered at 32 weeks. Fever, elevated bp-thought sepsis but no evaluation of placenta. (5) Major depression: QUALIFIERS: Major depression recurrence: recurrent Active/Remission status: currently active Major depression episode severity: moderate Qualified Code(s): F33.1 - Major depressive disorder, recurrent, moderate COMMENT: failed multiple agents- trying zoloft again and referral to mann bravo and gladis 419 (6) Obesity (BMI 30.0-34.9): COMMENT: HgbA1c WNL (7) History of anomaly in prior , currently : COMMENT: laryngomalacia, stabismus, developmental delay PLAN: Plan Patient presents IAL, plan expectant management for , pitocin/AROM PRN if needed. Pain management: plans epidural. GBS neg. Management of any complications: none I have reviewed the [facility] and made any clinically relevant updates.
[2024-12-05] MEDS: Lactated Ringers 1,000 ML 150 ML IV (08:45)
[2024-12-05] MEDS: Oxytocin 15 Units/NS 250ml 15 UNITS/250 ML IV.SOLN 334 UNITS IV (10:27)
--- NOTE | 2024-12-05 10:57 | OB.VAGDELI_ITS ---
Assessment & Plan (1) Active labor at term: (2) History of anomaly in prior , currently : COMMENT: laryngomalacia, stabismus, developmental delay (3) Obesity (BMI 30.0-34.9): COMMENT: HgbA1c WNL (4) Hx of delivery, currently : COMMENT: MFM consult- progesterone used in last pregnancies but not necessarily indicated based on newer evidence. after discussing with patient, wants to continue this - ordered vaginl 200mg nightly, CL US q 2 weeks at 16 weeks. Delivered at 32 weeks. Fever, elevated bp-thought sepsis but no evaluation of placenta. (5) Supervision of high-risk : QUALIFIERS: Trimester: second trimester Qualified Code(s): O09.92 - Supervision of high risk , unspecified, second trimester COMMENT: PRR, , ELIJAH [birth year], boy,PC Simonine, Mellissa Saleem Dagoberto (6) : QUALIFIERS: Weeks of gestation: 34 weeks Qualified Code(s): Z3A.34 - 34 weeks gestation of COMMENT: GBS Negative, NIPT low risk. Horizon neg (7) Major depression: QUALIFIERS: Major depression recurrence: recurrent Active/Remission status: currently active Major depression episode severity: moderate Qualified Code(s): F33.1 - Major depressive disorder, recurrent, moderate COMMENT: failed multiple agents- trying zoloft again and referral to mann bravo and gladis 419 Maternal Data Information ELIJAH Calculator Estimated Delivery Date Method Current WG Current Estimate 01/02/25 LMP (Certain) 36w 0d Vaginal Delivery Maternal Presentation Maternal Presentation: see assessment and plan Vaginal Delivery Information Procedure Performed: Spontaneous Vaginal Delivery Surgeon/Practitioner: Rosalba Matta Date of Procedure: 12/05/24 Pre-Procedure Diagnosis: see assessment and plan Post-Procedure Diagnosis: same Type of anesthesia: Epidural Estimated Blood Loss: 200 Findings Description of procedure: Patient began pushing and delivered the head in the ABRIL presentation. The head was delivered atraumatically . The anterior and posterior shoulders delivered without complication followed by the rest of the and the was placed on the maternal abdomen. Delayed cord clamping was employed for approximately 60 seconds. Cord was clamped and cut and gentle traction was applied to the cord and the placenta delivered spontaneously immediately following it was noted to be intact with three-vessel cord. The perineum and vagina were inspected and noted to have no laceration. EBL was 200. Patient and infant tolerated delivery well. 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
--- NOTE | 2024-12-05 10:58 | PCM.DC ---
Discharge Instructions Diet Discharge Diet: No restrictions DC O2, CPAP, BIPAP needs Home O2 Discharge instructions: No Dressing / Incision Discharge Activity: Return to Normal Activity, May Not Drive (while taking narcotic pain medications.) and May Shower May resume sexual activity in: 4-6 weeks Dressing / Incision Call your doctor if your incision/area has: Continuous Slow Oozing, Sudden Increased Bleeding, Increased Pain/ Swelling, Increased Redness and Foul Smelling Discharge Follow Up Care Please Follow Up With: Rosalba Matta MD When: Call [phone] to make an appointment with your doctor in 6 weeks. If you had elevated blood pressure or 4th degree laceration, you will need to be seen in 2 weeks. Test Results: Test results from this visit will be discussed in further detail at your follow-up appointment, if applicable. Discharge Plan Admission Admit Date/Time: 12/05/24 07:50 Attending Provider: Rosalba Matta Primary Care Provider: Dai Ordaz NP Discharge Orders/Prescriptions Prescriptions: No Action PNV-DHA 27 mg iron-1 mg -300 mg capsule 1 cap PO DAILY famotidine [Pepcid] 20 mg tablet 20 mg PO DAILY Qty: 30 6RF buspirone 15 mg tablet 15 mg PO TID PRN (Reason: anxiety) Qty: 90 2RF progesterone micronized [Prometrium] 200 mg capsule 200 mg vaginal QHS 30 Days Qty: 30 3RF sertraline [Zoloft] 100 mg tablet 100 mg PO QDAY Qty: 30 12RF aspirin 81 mg capsule 81 mg PO DAILY docusate sodium [Colace] 100 mg capsule 100 mg PO BID ondansetron 4 mg tablet,disintegrating 4 mg PO Q4H PRN (Reason: nausea and vomiting) Qty: 60 2RF Referrals / Follow Up: Dai Ordaz NP, [employer] [Primary Care Provider] - Disposition Disposition (needs filled in before D/C Order can be placed): Home, Self Care
[2024-12-05] MEDS: busPIRone 15 MG TABLET PO (12:51)
[2024-12-05 13:45] LABS: Syphilis Antibodies Non-reactive
[2024-12-05] MEDS: Acetaminophen 500 MG Tablet 1000 MG PO ×2 (14:59→22:29)
[2024-12-05] MEDS: fentaNYL-bupivacaine (epidural) 100 ML BAG EPIDURAL (15:39)
[2024-12-05] MEDS: Benzocaine/Lanolin/Aloe Vera 85 GM Spray 1 SPRAY TOPICAL (20:22)
[2024-12-06 04:55] VITALS: BP 111/74; PULSE 75; RESP 16; TEMP 36.8; O2SAT 99
[2024-12-06] MEDS: Acetaminophen 500 MG Tablet 1000 MG PO ×2 (05:05→11:14)
[2024-12-06] MEDS: Naproxen 500 MG Tablet PO ×2 (07:43→16:16)
[2024-12-06 07:53] VITALS: BP 108/76; PULSE 100; RESP 16; TEMP 36.8
--- NOTE | 2024-12-06 08:46 | PN.OBGYN_ITS ---
Subjective Subjective Patient doing well without complaints. Tolerating PO. Ambulating and voiding without difficulty. Feeding well. Denies chest pain, shortness of breath, calf pain/swelling, fevers, chills, lightheadedness. Objective Data Objective Data Vital Signs: Vital Signs Temp Pulse Resp BP Pulse Ox O2 Del Method 98.3 F 100 16 108/76 99 Room Air 12/06/24 07:53 12/06/24 07:53 12/06/24 07:53 12/06/24 07:53 12/06/24 04:55 12/06/24 04:55 Oxygen Delivery Method Room Air Weight: 215 lb Body Mass Index (BMI) 33.6 Intake & Output: Intake and Output for Last 24 Hours 12/04/24 12/05/24 12/06/24 23:59 23:59 23:59 Intake Total 1663.5 / 1663.5 Output Total 250 / 250 Balance 1413.5 / 1413.5 Lab / Micro Data 12/05/24 08:15 Labs: Laboratory Results - last 24 hr 12/05/24 08:15: Syphilis Total Ab Non-reactive, Blood Type A POSITIVE, Antibody Screen NEGATIVE ROS Constitutional Constitutional: Reports systems reviewed and no addt'l complaints, except as documented; Denies anorexia or headache(s) Cardiovascular Cardiovascular: Reports systems reviewed and no addt'l complaints, except as documented; Denies dizziness, dyspnea, nausea or tachypnea Respiratory/Chest Respiratory/Chest: Reports systems reviewed and no addt'l complaints, except as documented; Denies cough, dyspnea, shortness of breath at rest or tachypnea Gastrointestinal Gastrointestinal: Reports systems reviewed and no addt'l complaints, except as documented; Denies abdominal pain, constipation or nausea Genitourinary Genitourinary: Reports systems reviewed and no addt'l complaints, except as documented; Denies burning urination, difficulty urinating, dysuria, urinary frequency or urinary incontinence Musculoskeletal Musculoskeletal: Reports systems reviewed and no addt'l complaints, except as documented Integumentary Integumentary: Reports systems reviewed and no addt'l complaints, except as documented Neurologic Neurologic: Reports systems reviewed and no addt'l complaints, except as documented; Denies abnormal speech, dizziness or headache(s) Psychiatric Psychiatric: Reports systems reviewed and no addt'l complaints, except as documented Endocrine Endocrinology: Reports systems reviewed and no addt'l complaints, except as documented Hematologic/Lymphatic Hematologic/Lymphatic: Reports systems reviewed and no addt'l complaints, except as documented Physical Exam Const alert, oriented x3 and no apparent distress Neck full ROM Resp normal respiratory effort, normal air movement and no retractions Effort and Inspection: able to speak in complete sentences and symmetric chest movement GI soft to palpation Bladder / Kidney Exam: bladder normal to palpation Uterus Palpation: uterus fundus Extremity normal to inspection and full ROM Psych mental status grossly normal, thought process normal and cooperative Assessment & Plan (1) Vaginal delivery: COMMENT: SM 36 IAL renae palencia PLAN: s/p PPD # 1 1. routine post delivery care 2. breast feeding- support given 3. rh positive 4. rubella immune (2) Threatened labor: (3) Glucosuria: COMMENT: 1 hr GCT (4) Accidental fall: QUALIFIERS: Encounter type: initial encounter Qualified Code(s): W19.XXXA - Unspecified fall, initial encounter COMMENT: a positive blood type, no vaginal bleeding. no contractions. (5) History of anomaly in prior , currently : COMMENT: laryngomalacia, stabismus, developmental delay (6) Obesity (BMI 30.0-34.9): COMMENT: HgbA1c WNL (7) CASSANDRA positive: COMMENT: x2-prior work up was negative (8) Hx of delivery, currently : COMMENT: MFM consult- progesterone used in last pregnancies but not necessarily indicated based on newer evidence. after discussing with patient, wants to continue this - ordered vaginl 200mg nightly, CL US q 2 weeks at 16 weeks. Delivered at 32 weeks. Fever, elevated bp-thought sepsis but no evaluation of placenta. (9) Supervision of high-risk : QUALIFIERS: Trimester: second trimester Qualified Code(s): O09.92 - Supervision of high risk , unspecified, second trimester COMMENT: PRR, , ELIJAH [birth year], boy,Harper Kelly Julianne Dagoberto (10) : QUALIFIERS: Weeks of gestation: 34 weeks Qualified Code(s): Z 3A.34 - 34 weeks gestation of COMMENT: GBS Negative, NIPT low risk. Horizon neg (11) OCD (obsessive compulsive disorder): (12) PTSD (post-traumatic stress disorder): (13) Major depression: QUALIFIERS: Major depression recurrence: recurrent A ctive/Remission status: currently active Major depression episode severity: m oderate Qualified Code(s): F33.1 - Major depressive disorder, recurrent, moderate COMMENT: failed multiple agents- trying zoloft again and referral to [facility]n [facility] 419 Charges/Coding Multi Select Codes Urinary/Genital Urinary/Genital CPT Codes: No Charge
[2024-12-06 14:00] VITALS: BP 109/80; PULSE 83; RESP 16; TEMP 36.6
[2024-12-06 16:47] LABS: Absolute Lymphocyte Count 3.35 X10^3/uL (0.83-4.51); Absolute Neutrophil Count 8.2 X10^3/uL (2.0-7.7); Basophil# 0.07 X10^3/uL; Basophil% 0.5 % (0-1); Eosinophil# 0.53 X10^3/uL; Hemoglobin 11.9 g/dL (12.0-15.0); Lymphocyte # 3.35 X10^3/ul (0.83-4.51); Lymphocyte % 25.4 % (19-41); Mean Corpuscular Hgb 31.4 pg (27.0-32.0); Mean Corpuscular Volume 89.7 fL (81-99); Monocyte# 1.01 X10^3/uL; Monocyte% 7.7 % (0-10); NRBC Flagged by Analyzer 0 % (0-5); Neutrophil # 8.19 X10^3/uL (2.7-7.7); Neutrophil % 62.2 % (47-70); Platelet Count 338 K/mm3 (150-450); RBC Distribution Width CV 12.7 % (11.6-14.6); RBC Distribution Width SD 41.1 fl (35.1-43.9); Red Blood Count 3.79 M/mm3 (4.2-5.4); White Blood Count 13.2 K/mm3 (4.4-11.0)
[2024-12-06 20:45] VITALS: BP 114/81; PULSE 89; RESP 14; TEMP 36.6; O2SAT 99
[2024-12-07 03:38] VITALS: BP 114/76; PULSE 78; RESP 14; O2SAT 99
[2024-12-07] MEDS: Naproxen 500 MG Tablet PO (03:42)
[2024-12-07] MEDS: Acetaminophen 500 MG Tablet 1000 MG PO ×2 (03:42→09:52)
--- NOTE | 2024-12-07 08:53 | PN.OBGYN_ITS ---
Objective Data Objective Data Vital Signs: Vital Signs Temp Pulse Resp BP Pulse Ox O2 Del Method 97.9 F 78 14 114/76 99 Room Air 12/06/24 20:45 12/07/24 03:38 12/07/24 03:38 12/07/24 03:38 12/07/24 03:38 12/07/24 03:38 Oxygen Delivery Method Room Air Weight: 215 lb Body Mass Index (BMI) 33.6 Intake & Output: Intake and Output for Last 24 Hours 12/05/24 12/06/24 12/07/24 23:59 23:59 23:59 Intake Total 1663.5 / 1663.5 Output Total 250 / 250 Balance 1413.5 / 1413.5 Lab / Micro Data 12/06/24 16:25 Labs: Laboratory Results - last 24 hr 12/06/24 16:25: WBC 13.2 H, RBC 3.79 L, Hgb 11.9 L, Hct 34.0 L, MCV 89.7, MCH 31.4, MCHC 35.0, RDW Std Deviation 41.1, RDW Coeff of Semaj 12.7, Plt Count 338, MPV 10.0, Immature Gran % (Auto) 0.200, Neut % (Auto) 62.2, Lymph % (Auto) 25.4, [place] % (Auto) 7.7, Eos % (Auto) 4.0, Baso % (Auto) 0.5, Absolute Neuts (auto) 8.2 H, Absolute Lymphs (auto) 3.35, Nucleated RBC % 0 Physical Exam Const alert, oriented x3, no apparent distress and healthy appearing General Appearance: cooperative; Negative for anxious Resp normal respiratory effort Effort and Inspection: able to speak in complete sentences Cardio regular rate GI soft to palpation and non-tender Inspection: gravid Palpation: soft external exam normal Back/Spine no CVA tenderness Extremity normal to inspection, full ROM and no clubbing, cyanosis or edema General Extremity: Negative for calf tenderness or edema Skin Lesions: no lesions Rashes: no rashes Psych mental status grossly normal Assessment & Plan (1) Abnormal glucose affecting : COMMENT: nl 3 hr gtt (2) COVID-19 affecting childbirth: COMMENT: + late September. Taking baby ASA daily, 32 and 36 wk US, 11/26/22 nl growth (3) UTI symptoms: COMMENT: neg urine culture (4) Anxiety and depression: COMMENT: celexa increased to 40 mg encouraged counseling/improved (5) History of labor: COMMENT: delivered at 32 weeks and 34 weeks in prior pregnancies, plan jonah injections. US for CL E/O week, 09/09 CL 31.4mm. 10/02/22 Sto[ [place] injections due to SE. Start progesterone vaginally at hs. (6) Supervision of high risk , antepartum: COMMENT: PRR , ELIJAH 01[birth year]18[birth year] girl, [place] 4yo & [place] 2yo Spouse Dagoberto (7) : QUALIFIERS: Weeks of gestation: 35 weeks Qualified Code(s): Z 3A.35 - 35 weeks gestation of COMMENT: anatomy nl, NIPT low risk, declined Carrier testing,10/31 abnormal 1 HR GCT, 3 HR GTT nl (8) Thyromegaly: COMMENT: labs and us nl (9) Vaginal delivery: COMMENT: SM 36 IAL boy talha PLAN: Plan s/p PPD # 1 1. routine post delivery care 2. breast feeding- support given 3. rh positive 4. rubella immune Charges/Coding Multi Select Codes Visit Charges Visit Charges: 66583 Subs Hosp L3
[2024-12-07 09:35] VITALS: BP 110/76; PULSE 89; RESP 16; TEMP 36.9; O2SAT 99
--- NOTE | 2024-12-07 10:12 | CASEMGMT ---
Social Work Assessment Labor and Delivery Unit Patient Address: [address] [place], [place] [address] Phone number: [phone] Date of Referral: 12/05/24 Time of Referral:? 44 Referred By: Dr. Matta Date of Intervention: ?12/07/24? Time of Intervention:? 112 Reason for Referral:? mental health Sw completed chart review and acknowledges social work consult. Sw presented to bedside and introduced self to mother of baby (MOB- Alma) and father of baby (FOB- Dagoberto). Sw explained sw role during hospitalization and completed psychosocial assessment. History obtained from: medical records, MOB and FOB. Household composition: Currently residing in the family home is ABRAHAM KIMBLE, their three older children: Rachel (6), Harper (5) and Mellissa (2). Reform baby will also be added to residence when ready for discharge. Parents deny any problems or concerns with housing, stating that it is safe and secure. Patient's parent/guardian status:? ?Parents report that they have been together for 8 years after meeting each other at school. Reform baby is fourth child for parents together. No concerns reported of domestic violence or intimate partner violence. Medical History: ?SHYANNE is 24 year old female who is 4, para 3- now 4 following labor and delivery of . SHYANNE received routine care during with [place]. SHYANNE presented to hospital and delivered baby via vaginal delivery at 36 weeks gestation. Baby boy, named Any, was born weighing 7lb 2oz with apgars of 8 and 8 at one and five minutes of life, respectfully. Baby required transfer to [facility] due to hypoxia and hypoglycemia, no discharge identified at this time. SHYANNE is breast feeding and baby will be followed by Dr. Avila when ready for discharge. Educational Status:? Both parents graduated from high school, ABRAHAM has obtained some college education. Parents deny problems or concerns with reading, learning or comprehension. Financial Status: ABRAHAM is gainfully employed outside of the home, he works for [employer]. SHYANNE does not work, she is a stay at home mom with their children. Supplies: Parents have obtained all necessary baby supplies, including: car seat, safe sleep space, clothes, diapers and wipes. Childcare/Caregiver(s):? MOB will be the primary caregiver to baby along with FOB when he is not at work. Transportation:?? Both parents have their drivers license and reliable means of transportation. No barriers. Programs/Agencies Involved: Parents are connected to insurance through Medicaid. Parents also have resources provided through [facility] for their 6 year old daugher who has special medical needs. ??? Children Services/Legal Issues:??? No history of children services involvement, no issues or concerns warranting referral to be made at this time. Behavioral Health Issues: ??Mental Health History:??FOB states that he has been diagnosed with anxiety and depression. He is prescribed zoloft to help him manage his mental health. MOB is diagnosed with anxiety, depression, PTSD and major depressive disorder. MOB is prescribed Buspar and zoloft through her OBGYN. MOB states that for the past several years her mental health has been managed. MOB states that she struggled with her mental health following the delivery of her first baby. MOB states during that time she was anxious and overwhelmed. MOB states that at this time she feels good mentally. MOB states that she is anxious due to baby being in [facility], but she knows that he is where he needs to be medically and is hopeful that he will not need to be admitted for a long period of time. ? Substance Use History:??Parents deny substance use prior to and during . Family History:?MOB states that her family does have history of alcoholism. MOB states that due to her family history she does not drink or use substances. Drug Screens: NO drug screens observed during chart review. Family/Social Stressors:? Parents state that their biggest stressor at this time is that baby is admitted to [facility]. FOB appeared to provide strength and support to MOB. FOB expressed understanding of why baby needed to be in [facility], and was understanding of medical goals baby has in order to be medically ready for discharge. Support Systems: MOB identifies that maternal grandparents are their biggest supports at this time, and that is who is helping with their other three children while they are at the hospital. Depression/Shaken Baby/Safe Sleeping: Sw educated parents on signs and symptoms of baby blues and mood and anxiety disorders to be mindful of. MOB states that she is familiar with what to lookout for, and is understanding of what her triggers and struggled tend to be. FOB states that he is able to recognize when MOB is struggling and is mindful of what triggers MOB has. Currently MOB states that she feels good following labor, denying anxiety, depression or sadness. MOB states that the only anxiety she feels is due to baby being in [facility]. MOB is connected to resources provided through [facility] and meets with her service providers regularly. Sw educated parents on shaken baby prevention and ABCs of safe sleep. Parents express understanding. ASSESSMENT:? MOB and baby are admitted following labor and delivery. Baby requires admission to SC[facility] due to hypoglycemia. Parents have been active at baby bedside while in SCN. Parents express understanding of baby's medically need to be admitted to SC[facility]. Both parents have mental health history and are prescribed pharmacological medication to assist with managing their symptoms. Parents were talkative and engaging throughout completion of psychosocial assessment, making eye contact and communicating fluidly. Parents have obtained all necessary baby supplies and have natural supports in place. PLAN:?? No other services requested or indicated. MOB and baby to be discharged when medically ready. Parents were provided literature regarding: signs and symptoms of baby blues and mood and anxiety disorders, Help Me Grow, shaken baby prevention, ABCs of safe sleep and a list of [facility] resources that are available for them should any needs present themselves. Surekha Clifford, STAFF [employer]FORMATION [employer]ENTER OFFICER, MACHINIST MATE
== END 2024-12-07 10:26 | disposition home or self-care (01) | DRG 806 ==
LOC: WPOUT 07:54 → WP 07:54
PROVIDERS: Advanced Practice Midwife; Admitting Provider Obstetrics & Gynecology; PCP Registered Nurse; Referring Provider Obstetrics & Gynecology; Visit Provider Obstetrics & Gynecology
DX: O99.214 Obesity complicating childbirth (principal); Z37.0 Single live birth; F33.1 Major depressive disorder, recurrent, moderate; O99.344 Other mental disorders complicating childbirth; F41.9 Anxiety disorder, unspecified; Z3A.35 35 weeks gestation of pregnancy; Z79.82 Long term (current) use of aspirin; Z79.899 Other long term (current) drug therapy; Z86.16 Personal history of COVID-19; Z87.59 Personal history of other complications of pregnancy, childbirth and the puerperium
CPT/HCPCS: 59025; 59050; 85025; 86780; 86850; 86900; 86901; 99221; G0378

== ENCOUNTER 2024-12-12 20:04 | Outpatient (CLI) | payer SELFPAY ==
[2024-12-12 20:15] VITALS: BP 125/84; PULSE 95; RESP 16; TEMP 36.5; O2SAT 99; BMI 33.6
[2024-12-12 20:30] VITALS: BP 120/74
[2024-12-12 20:45] VITALS: BP 126/88
--- NOTE | 2024-12-12 20:57 | NURSING ---
Dr Sosa updated on patient assessment, reporting headache last 4-5 days, hand tremors, intermittent ear ringing, and mild hand swelling. Discharge order received and plan to encourage patient to be evaluated in ER for further concerns if she feels necessary.
--- NOTE | 2024-12-12 21:21 | NURSING ---
Verbal and discharge orders received. Patient and deny questions or concerns. Discharged at [id number]
--- NOTE | 2024-12-12 21:53 | PCM.PN.BLA ---
Progress Note patient delivered 1 week ago and states that she has noticed more swelling and wanted to get check out incase she has pre-eclampsia. Bp's is normal and patient states that she does not have a headache or visual changes or epigastric pain per the nurse instructed to nurse to reassure patient that her blood pressure is normal. Swelling is to be expected after delivery. no further studies performed ok to dc the patient to home. Assessment & Plan Assessment/Plan (1) depression: (2) Vaginal delivery: (3) History of anomaly in prior , currently : (4) CASSANDRA positive: (5) Obesity (BMI 30.0-34.9): (6) PTSD (post-traumatic stress disorder): (7) Major depression: QUALIFIERS: Major depression recurrence: recurrent Active/Remission status: currently active Major depression episode severity: moderate Qualified Code(s): F33.1 - Major depressive disorder, recurrent, moderate
== END 2024-12-12 21:10 | disposition home or self-care (01) ==
LOC: WPOUT 20:10 → WP 20:12
PROVIDERS: PCP Registered Nurse; Referring Provider Obstetrics & Gynecology; Visit Provider Obstetrics & Gynecology
DX: O99.345 Other mental disorders complicating the puerperium (principal); O99.215 Obesity complicating the puerperium; F53.0 Postpartum depression; F43.10 Post-traumatic stress disorder, unspecified
CPT/HCPCS: 99221; G0378

== ENCOUNTER 2025-05-20 18:35 | Emergency (ER) | payer MEDICAID, SELFPAY ==
[2025-05-20 18:35] VITALS: BP 122/91; PULSE 105; RESP 16; TEMP 37.1; O2SAT 99
[2025-05-20 18:53] LABS: Absolute Lymphocyte Count 3.94 X10^3/uL (0.83-4.51); Absolute Neutrophil Count 5.3 X10^3/uL (2.0-7.7); Basophil% 0.8 % (0-1); Eosinophil# 1.81 X10^3/uL; Eosinophils% 15.2 % (0-5); Hematocrit 44.1 % (37-47); Hemoglobin 15.1 g/dL (12.0-15.0); Lymphocyte # 3.94 X10^3/ul (0.83-4.51); Lymphocyte % 33.2 % (19-41); Mean Corp Hgb Conc 34.2 g/dL (32-36); Mean Corpuscular Hgb 29.9 pg (27.0-32.0); Mean Corpuscular Volume 87.3 fL (81-99); Mean Platelet Vol. 9.6 fl (6.2-12.0); Monocyte# 0.67 X10^3/uL; Monocyte% 5.6 % (0-10); NRBC Flagged by Analyzer 0 % (0-5); Neutrophil # 5.31 X10^3/uL (2.7-7.7); Neutrophil % 44.9 % (47-70); Platelet Count 415 K/mm3 (150-450); RBC Distribution Width CV 11.9 % (11.6-14.6); RBC Distribution Width SD 37.8 fl (35.1-43.9); Red Blood Count 5.05 M/mm3 (4.2-5.4); White Blood Count 11.9 K/mm3 (4.4-11.0)
[2025-05-20 19:04] LABS: Internal QC Validated? YES +Cl - CLEAR BKGD; Pregnancy, Serum, hCG Quali. NEGATIVE Negative
[2025-05-20 19:14] LABS: ALB/GLOB Ratio 1.4 RATIO (0.9-2.4); AST(SGOT) 23 U/L (<=31); Alanine Aminotransfer ALT/SGPT 30 U/L (<=34); Albumin, Serum 4.5 g/dL (3.5-5.0); Alkaline Phosphatase 83 U/L (35-104); Anion Gap 12 (5-15); BUN 8 mg/dL (4-19); BUN/Creat Ratio 7.2 RATIO (10-20); Calcium,Total 9.7 mg/dL (7.6-11.0); Chloride 105 mmol/L (98-108); Creatinine, Serum 1.08 mg/dL (0.70-1.20); EST Glomerular Filtration Rate 72 (>60); Estimated Creatinine Clearance 88.68 ml/min (50-250); Globulin 3.2 g/dL (2.2-4.2); Glucose 123 mg/dL (70-99); Lipase 39 U/L (13-75); Potassium 3.9 mmol/L (3.3-5.1); Protein, Total 7.6 g/dL (5.9-8.4); Sodium Level 140 mmol/L (133-145); Total Bilirubin 0.37 mg/dL (0.00-1.30)
--- NOTE | 2025-05-20 19:26 | EDS_ITS ---
HPI <GINA Osei - Last Filed: 05/20/25 21:29> HPI - GI History of Present Illness Chief Complaint: Abd Pain Narrative Narrative: Patient presenting today due to concerns for epigastric abdominal pain she has had over the last 5 days. She describes it as a crushing pain. She does have a history of a cholecystectomy about 15 months ago. She had a vaginal to her son about 5 months ago. She has a previous history of pancreatitis. She denies any alcohol use. She saw her PCP for this pain and they ordered outpatient labs, she reports that yesterday her lipase was normal. She was told to come to the ED for any worsening pain, nausea, or vomiting. She reports that she has had about 6 episodes of vomiting today. She denies fevers, chills, hematemesis, and urinary symptoms. Reports that she has had a few episodes of loose stool today as well. She denies any blood in her stool. Aside from the cholecystectomy she denies any other abdominal surgery. PFSH <GINA Osei - Last Filed: 05/20/25 21:29> PFSH Medical History History of anomaly in prior , currently OCD (obsessive compulsive disorder) PTSD (post-traumatic stress disorder) Major depression Vaginal delivery Family history of hearing loss at age younger than 7 years History of pre-term labor depression Anxiety Home Medications ?Medication ?Instructions ?Recorded ?Last Taken ?Type multivitamin no.47-iron fum 27 1 cap PO DAILY pregnanc y 06/04/24 12/12/24 History mg-folate no.1 1 mg-dha 300 mg capsule (PNV-DHA) ondansetron 4 mg disintegrating 4 mg PO Q8H PRN PRN Na usea #10 tabs 05/20/25 Unknown Rx tablet Allergy/AdvReac Type Severity Reaction Status Date / Time No Known Allergies Allergy Verified 05/20/25 18:35 Family History Grandfather Spina bifida unconfirmed Surgical History H/O hernia repair History of cholecystectomy History of tonsillectomy Social History (Updated 01/20/25 @ 15:25 by Anitha Polanco) adopted: No household members: spouse and children housing: house number of children: 4 current occupational status: unemployed 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 current occupational exposures/hazards: No pets and animals: Yes (Avoid litterbox) pets and animals: cat(s) and dog(s) history of recent travel: Yes ([place]) out of state: Yes out of country: No sexually active: Yes Smoking Status: Never smoker alcohol intake: never substance use type: does not use well-balanced diet: daily or most days caffeine: No (occasional) eating out: rarely or never during the past year weight has: decreased > 10 lbs what type of physical activity do you participate in: walking frequency: 3-4 times per week duration: 45-60 minutes/day charlie/rastafari: [employer] seatbelt use: always do you feel safe at home: Yes additional social history: [email or web address]- Works for [employer] 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7 F 98.4 F Temperature Source Oral Pulse Rate 105 H 69 Respiratory Rate 16 16 Blood Pressure 122/91 H 116/77 Blood Pressure Mean 101 90 Pulse Ox 99 100 Oxygen Delivery Method Room Air Positive well nourished, well developed and no apparent distress General Appearance ED: well developed HEENT Reports normocephalic and head/scalp atraumatic Mouth ED: Yes moist mucous membranes normal Eyes PERRL and EOMs intact bilaterally Neck full ROM and supple Chest Wall inspection of chest normal Resp normal respiratory effort and clear to auscultation bilaterally Cardio regular rate and regular rhythm GI soft to palpation, non-distended and no masses GI Narrative: Minimal tenderness to the epigastrium, otherwise abdomen is soft and nontender, no rigidity or guarding Back/Spine normal ROM and normal to inspection Extremity normal to inspection and full ROM Neuro oriented x3, CN's II-XII intact bilaterally, moves all extremities, no focal motor deficits and no sensory deficits noted Sensorium / Orientation: awake and alert Psych mental status grossly normal and thought process normal Skin no rashes or lesions noted and no wounds <Dr. Gurjit Dorado MD - Last Filed: 05/20/25 20:24> Physical Exam Const Vital Signs: 05/20/25 18:35 05/20/25 20:35 Temperature 98.7 F 98.4 F Temperature Source Oral Pulse Rate 105 H 69 Respiratory Rate 16 16 Blood Pressure 122/91 H 116/77 Blood Pressure Mean 101 90 Pulse Ox 99 100 Oxygen Delivery Method Room Air MDM <GINA Osei - Last Filed: 05/20/25 21:29> [facility] Narrative Medical decision making narrative: Patient presenting today with epigastric abdominal pain she has had for about 5 days. She has a history of a cholecystectomy, nontender right upper quadrant. She has minimal epigastric tenderness on exam, however she has a nonsurgical abdomen, I do not feel abdominal imaging is indicated at this time. Labs obtained, minimal elevation of her WBC at 11.9, otherwise her CBC CMP, lipase, serum hCG are unremarkable. She was medicated here with a GI cocktail, Zofran, and IV fluids. She has improvement of symptoms on reexamination. She does take Protonix at home. She does have good follow-up with her PCP. Recommended she continue following with them and she will be discharged home in stable condition. I have personally performed a face to face assessment of the patient and have reviewed the CHANG Note. I performed a substantive portion of the visit including all aspects of the following. My gray findings include: History is 25-year-old female prior cholecystectomy about a year and a half ago. Planing of epigastric abdominal pain. No prior abdominal surgeries otherwise. Denies any dysuria. No hematemesis. No vomiting. No diarrhea or constipation. Exam is [well-appearing 25-year-old female. Vital signs stable afebrile. Holding her 5-month-old son. H EENT exam pupils round react light. moist mucous membranes. Neck nontender no JVD. No lymphadenopathy. Lungs clear to auscultation bilaterally. Heart regular rhythm no murmur. Rate about 100. Chest wall and ribs nontender. Abdomen soft nondistended normal bowel sounds without peritoneal signs. Currently she is not have any epigastric tenderness. There is no reproducible pain. Right upper quadrant is nontender right lower quadrant nontender. No hernia or mass. No obstruction. Moving all 4 extremities. Nontender no edema. Normal range of motion. Back nontender. Neurologically she is awake alert. Answer question following commands.] Medical Decision Making [25-year-old female abdominal pain. Abdominal workup. Does not need imaging. Labs are benign. She be discharged home with outpatient follow-up. She is currently on Protonix.] Other additions or changes: [None] Lab Data Labs: Laboratory Results - last 24 hr 05/20/25 18:41 WBC 11.9 H RBC 5.05 Hgb 15.1 H Hct 44.1 MCV 87.3 MCH 29.9 MCHC 34.2 RDW Std Deviation 37.8 RDW Coeff of Semaj 11.9 Plt Count 415 MPV 9.6 Immature Gran % (Auto) 0.300 Neut % (Auto) 44.9 L Lymph % (Auto) 33.2 [place]in[place] % (Auto) 5.6 Eos % (Auto) 15.2 H Baso % (Auto) 0.8 Absolute Neuts (auto) 5.3 Absolute Lymphs (auto) 3.94 Nucleated RBC % 0 Sodium 140 Potassium 3.9 Chloride 105 Carbon Dioxide 23.0 Anion Gap 12 BUN 8 Creatinine 1.08 Estim Creat Clear Calc 88.68 Est GFR (MDRD) Non-Af 72 BUN/Creatinine Ratio 7.2 L Glucose 123 H Calcium 9.7 Total Bilirubin 0.37 AST 23 ALT 30 Alkaline Phosphatase 83 Total Protein 7.6 Albumin 4.5 Globulin 3.2 Albumin/Globulin Ratio 1.4 Lipase 39 Serum , Qual NEGATIVE <Dr. Gurjit Dorado MD - Last Filed: 05/20/25 20:24> [facility] MDM Narrative Medical decision making narrative: I have personally performed a face to face assessment of the patient and have reviewed the CHANG Note. I performed a substantive portion of the visit including all aspects of the following. My gray findings include: History is 25-year-old female prior cholecystectomy about a year and a half ago. Planing of epigastric abdominal pain. No prior abdominal surgeries otherwise. Denies any dysuria. No hematemesis. No vomiting. No diarrhea or constipation. Exam is [well-appearing 25-year-old female. Vital signs stable afebrile. Holding her 5-month-old son. H EENT exam pupils round react light. moist mucous membranes. Neck nontender no JVD. No lymphadenopathy. Lungs clear to auscultation bilaterally. Heart regular rhythm no murmur. Rate about 100. Chest wall and ribs nontender. Abdomen soft nondistended normal bowel sounds without peritoneal signs. Currently she is not have any epigastric tenderness. There is no reproducible pain. Right upper quadrant is nontender right lower quadrant nontender. No hernia or mass. No obstruction. Moving all 4 extremities. Nontender no edema. Normal range of motion. Back nontender. Neurologically she is awake alert. Answer question following commands.] Medical Decision Making [25-year-old female abdominal pain. Abdominal workup. Does not need imaging. Labs are benign. She be discharged home with outpatient follow-up. She is currently on Protonix.] Other additions or changes: [None] History & Record Review Discussion w/independent historian: Patient Additional record(s) reviewed:: Prior inpatient record, Prior outpatient record, Prior ED visit and Prior labs Lab Data Attestation: I reviewed the patient's lab results. Lab results narrative: CBC white count 1.9. H&H 15 and 44. Platelets 415. Electrolytes show a gap 12. BUN and creatinine of 8 and 1. Glucose 123. Liver enzymes normal. Lipase normal. Serum test negative. Labs: Laboratory Results - last 24 hr 05/20/25 18:41 WBC 11.9 H RBC 5.05 Hgb 15.1 H Hct 44.1 MCV 87.3 MCH 29.9 MCHC 34.2 RDW Std Deviation 37.8 RDW Coeff of Semaj 11.9 Plt Count 415 MPV 9.6 Immature Gran % (Auto) 0.300 Neut % (Auto) 44.9 L Lymph % (Auto) 33.2 [place] % (Auto) 5.6 Eos % (Auto) 15.2 H Baso % (Auto) 0.8 Absolute Neuts (auto) 5.3 Absolute Lymphs (auto) 3.94 Nucleated RBC % 0 Sodium 140 Potassium 3.9 Chloride 105 Carbon Dioxide 23.0 Anion Gap 12 BUN 8 Creatinine 1.08 Estim Creat Clear Calc 88.68 Est GFR (MDRD) Non-Af 72 BUN/Creatinine Ratio 7.2 L Glucose 123 H Calcium 9.7 Total Bilirubin 0.37 AST 23 ALT 30 Alkaline Phosphatase 83 Total Protein 7.6 Albumin 4.5 Globulin 3.2 Albumin/Globulin Ratio 1.4 Lipase 39 Serum , Qual NEGATIVE Discharge Plan Triage Chief Complaint: Abd Pain ED Midlevel Provider: Melyssa Ward ED Provider: Gurjit Dorado Dx/Rx/DC Orders Clinical Impression: Epigastric abdominal pain, Nausea & vomiting Instructions: ED Abdominal Pain Unkn Cause Fem, ED Vomiting (Adult) Prescriptions: New ondansetron 4 mg tablet,disintegrating 4 mg PO Q8H PRN PRN (Reason: Nausea) Qty: 10 0RF No Action PNV-DHA 27 mg iron-1 mg -300 mg capsule 1 cap PO DAILY Primary Care Provider: Dai Ordaz NP Referrals: Dai Ordaz NP, [employer] [Primary Care Provider] - 5-7 Days Activity Restrictions/Additional Instructions: Follow-up with your PCP and return for any worsening symptoms or other concerns Print Language: Mongolian Disposition Disposition: Home, Self Care Discharge Date/Time: 05/20/25 20:36
[2025-05-20] MEDS: 0.9% Normal Saline (1000mL) 1,000 ML 999 ML IV (19:45)
[2025-05-20] MEDS: Mag Hydrox/Al Hydrox/Simeth 30 ML UDC PO (19:45)
[2025-05-20] MEDS: Lidocaine 2% Viscous15 ML UDC 15 ML PO (19:45)
[2025-05-20] MEDS: Ondansetron 4 MG/2 ML Vial IV (19:46)
--- OUTSIDE RECORDS SUMMARY | 2025-05-20 19:52 | XMS RPT_ITS | CCD ---
Author Organization [facility] Care Team Providers Care Asparagus Cutter Name Role Phone Adithya Zavala Unavailable Unavailable Bruderly, Adithya Unavailable Unavailable Brucarmen, Adithya Unavailable Unavailable Bruderly, Adithya Unavailable Unavailable DELANO DALY Unavailable Unavailable BRINK, MARLON Unavailable Unavailable BRINK, MARLON Unavailable Unavailable KAVITA TORRES Unavailable Unavailable BRINK, MARLON Unavailable Unavailable CRUZ LOVING Unavailable Unavailable BRINK, MARLON Unavailable Unavailable ABIEL VILLALOBOS, DR ELHAM Navarro Primary Care Physician Dr. Yovanny Navarro Primary Care Provider Dr. Yovanny Navarro Referring Provider Dr. Rosalba Edwards Attending Provider [phone] Dr. Zakia De Santiago Attending Provider [phone] Deon WATERS, FILM WAXER-C Rita Attending Provider [phone] Yovanny Navarro MD Primary Care Provider [phone] Dr. Yovanny Navarro Primary Care Provider Dr. Yovanny Navarro Referring Provider Deon FILM WAXER, EVELIN-C Rita Attending Provider MELITON Cid Attending Provider Dr. Rosalba Edwards Attending Provider [phone] Dr. Zakia De Santiago Attending Provider [phone] Dr. Zakia De Santiago Referring Provider [phone] Dr. Zakia De Santiago Other Provider Dr. Yovanny Navarro Primary Care Provider Dr. Yovanny Navarro Referring Provider [phone] Deon FILM WAXER, EVELIN-C Rita Attending Provider Dr. Yovanny Navarro Primary Care Provider [phone] Dr. Yvoanny Navarro Referring Provider Deon FILM WAXER, FILM WAXER-C Rita Attending Provider [phone] Dr. Rosalba Edwards Admit Provider Dr. Rosalba Edwards Other Provider GARIMA CHIEF VENDOR QUALITY-BATTERY CHARGER CONVEYOR LINE, DAI A Primary Care Physi diego Garima CHIEF VENDOR QUALITY.BATTERY CHARGER CONVEYOR LINE, Dai Unavailable Unav ailable TRISH DO, SUBHA Attending Unavailable GARIMA CHIEF VENDOR QUALITY-BATTERY CHARGER CONVEYOR LINE, DAI A Primary Care Un available ENRRIQUE VILLALOBOS, VERENA Ren Attending Unavailable GARIMA CHIEF VENDOR QUALITY-BATTERY CHARGER CONVEYOR LINE, DAI A Primary Care Un available GARIMA CHIEF VENDOR QUALITY-BATTERY CHARGER CONVEYOR LINE, DAI A Primary Care Un available EUGENE BROOKS MD Attending Unavailable GARIMA CHIEF VENDOR QUALITY-BATTERY CHARGER CONVEYOR LINE, DAI A Attending Un available GARIMA CHIEF VENDOR QUALITY-BATTERY CHARGER CONVEYOR LINE, DAI A Primary Care Un available MERRITT CHIEF VENDOR QUALITY-BATTERY CHARGER CONVEYOR LINE, PIEDAD GALLARDO Attending U navailable GARIMA CHIEF VENDOR QUALITY-BATTERY CHARGER CONVEYOR LINE, DAI A Primary Care Un available GARIMA CHIEF VENDOR QUALITY-BATTERY CHARGER CONVEYOR LINE, DAI A Attending Un available GARIMA CHIEF VENDOR QUALITY-BATTERY CHARGER CONVEYOR LINE, DAI A Primary Care Un available MERRITT CHIEF VENDOR QUALITY-BATTERY CHARGER CONVEYOR LINE, PIEDAD GALLARDO Attending U navailable GARIMA CHIEF VENDOR QUALITY-BATTERY CHARGER CONVEYOR LINE, DAI A Primary Care Un available CHEW CHIEF VENDOR QUALITY-BATTERY CHARGER CONVEYOR LINE, MATT Portillo Attending Unavai lable GARIMA CHIEF VENDOR QUALITY-BATTERY CHARGER CONVEYOR LINE, DAI A Primary Care Un available ARABELLA ROCA, MARIPOSA Attending Unavailable GARIMA CHIEF VENDOR QUALITY-BATTERY CHARGER CONVEYOR LINE, DAI A Primary Care Un available ARABELLA ROCA, MARIPOSA Attending Unavailable GARIMA CHIEF VENDOR QUALITY-BATTERY CHARGER CONVEYOR LINE, DAI A Primary Care Un available MARIPOSA BOWER MD Consulting Unavailable TOMMIE ROCA, DR SHAVONNE Sanders Attending Unavai lable GARIMA CHIEF VENDOR QUALITY-BATTERY CHARGER CONVEYOR LINE, DAI A Primary Care Un available GARIMA CHIEF VENDOR QUALITY-BATTERY CHARGER CONVEYOR LINE, DAI A Primary Care Un available MARCELINO ROCA, DR SHIPMAN Attending Unavailabl e MARCANTHONYROSALBA Referring Unavailabl e GARIMA, DAI A Primary Care Unavailable MAHESH BIANCHI Attending Unavailable HARJIT HOOVER Attending Unavailable NO PRIMARY CARE, Primary Care Unavailable ROSALBA EDWARDS Referring Unavailabl e HARJIT HOOVER Attending Unavailable NO PRIMARY CARE, Primary Care Unavailable ROSALBA EDWARDS Referring Unavailabl e MARCANTHSENA, ROSALBA E Referring Unavailabl e GARIMA, DAI A Primary Care Unavailable DESTINEY CONLEY Attending Unavailable ROSALBA EDWARDS Referring Unavailabl e ALLY ROD Attending Unavailable GARIMA, DAI A Primary Care Unavailable ROSALBA EDWARDS Referring Unavailabl e MARCANTHROSALBA HUANG Attending Unavailabl e GARIMA, DAI A Primary Care Unavailable Mast BATTERY CHARGER CONVEYOR LINE, Kat Unavailable Garima CHIEF VENDOR QUALITY.BATTERY CHARGER CONVEYOR LINE, [place] Primary Care Provide r Unavailable ADAL PETER DO Attending Unavailable GARIMA CHIEF VENDOR QUALITY-BATTERY CHARGER CONVEYOR LINE, DAI A Primary Care Un available GARIMA CHIEF VENDOR QUALITY-BATTERY CHARGER CONVEYOR LINE, DAI A Primary Care Un available FABRICIO CHIEF VENDOR QUALITY-BATTERY CHARGER CONVEYOR LINE, AL Attending Unavailab THAIS Wright DO Attending Unavailable KENNEN CHIEF VENDOR QUALITY-BATTERY CHARGER CONVEYOR LINE, VANESSA Portillo Admitting Unavai lable GARIMA CHIEF VENDOR QUALITY-BATTERY CHARGER CONVEYOR LINE, DAI A Primary Care Un available GARIMA CHIEF VENDOR QUALITY-BATTERY CHARGER CONVEYOR LINE, DAI A Primary Care Un available MAST CHIEF VENDOR QUALITY-BATTERY CHARGER CONVEYOR LINE, KAT Attending Unavailabl e Garima FILM WAXER, [place] Primary Care Unavailabl e Vande VelZakia thomason Referring Unavailabl e Zakia De Santiago Attending Unavailabl e MarcRosalba mccallum Referring Unavailable Rosalba Edwards Attending Unavailable Garima FILM WAXER, [facility] Care Unavailabl e MarcanthRosalba huang Referring Unavailable Rosalba Edwards Attending Unavailable Garima FILM WAXER, [facility] Care Unavailabl e Garima FILM WAXER, [place] Referring Unavailabl e MarcRosalba mccallum Attending Unavailable Garima FILM WAXER, [facility] Care Unavailabl e Garima FILM WAXER, Dai Primary Care Unavailabl e Marcanthony Rosalba Referring Unavailable Rosalba Edwards Attending Unavailable Rosalba Edwards Admitting Unavailable Mahesh Bianchi Referring Unavailable Garima FILM WAXER, [facility] Unavailabl e Mahesh Bianchi Attending Unavailable Rodrick Freire Attending Unavailable Garima FILM WAXER, [facility] Unavailabl e Cherelle Cid Referring Unavailable Cherelle Cid Attending Unavailable Garima FILM WAXER, [facility] Unavailabl e Rosalba Edwards Referring Unavailable Rosalba Edwards Attending Unavailable Garima FILM WAXER, [facility] Unavailabl e Garima FILM WAXER, [facility] Unavailabl e Garima FILM WAXER, [place] Referring Unavailabl e Ean FILM WAXER, Susan Attending Unavailable Rosalba Edwards Referring Unavailable Rosalba Edwards Attending Unavailable Rosalba Edwards Consulting Unavailable Garima FILM WAXER, [facility] Unavailabl e Cherelle Cid Referring Unavailable Cid, Cherelle Attending Unavailable Cherelle Cid Consulting Unavailable Garima FILM WAXER, [facility] Unavailabl e Zakia De Santiago Attending Unavailabl e Garima FILM WAXER, [place] Referring Unavailabl e Garima FILM WAXER, [facility] Unavailabl e Garima FILM WAXER, [place] Referring Unavailabl e Garima FILM WAXER, [facility] Unavailabl e Cherelle Cid Attending Unavailable Garima FILM WAXER, [facility] Unavailabl e Garima FILM WAXER, [place] Referring Unavailabl e Zakia De Santiago Attending Unavailabl e Garima FILM WAXER, [facility] Unavailabl e Rosalba Edwards Admitting Unavailable Rosalba Edwards Referring Unavailable Mahesh Bianchi Attending Unavailable Rosalba Edwards Consulting Unavailable Rosalba Edwards Attending Unavailable Juana Kaur Attending Unavailable Garima FILM WAXER, [facility] Unavailabl e Garima FILM WAXER, [place] Referring Unavailabl e Zakia De Santiago Attending Unavailabl e Garima FILM WAXER, [facility] Unavailabl e Garima FILM WAXER, [place] Referring Unavailabl e Garima FILM WAXER, [facility] Unavailabl e Zakia De Santiago Attending Unavailabl e Deon FILM WAXERRita Attending Unavailable Garima FILM WAXER, [place] Referring Unavailabl e Garima FILM WAXER, [facility] Unavailabl micah Painting FILM WAXER, [facility] Unavailabl e Cherelle Cid Attending Unavailable Cherelle Cid Referring Unavailable Garima WATERS, [facility] Unavailabl e Vande Velkatelin, Zakia Referring Unavailabl e Vande Ailyn, Zakia Attending Unavailabl e Madhave Ailyn, Zakia Consulting Unavaildevora e Garima FILM WAXER, [facility] Unavailabl e Vande Ailyn, Zakia Attending Unavailabl e Alberto Robertson, Zakia Referring Unavailabl e Garima FILM WAXER, [facility] Unavailabl e Jose Roberto, Cherelle Attending Unavailable Jose Roberto, Cherelle Consulting Unavailable Jose Roberto, Cherelle Referring Unavailable Jose Roberto, Cherelle Referring Unavailable Cherelle Cid Consulting Unavailable Cherelle Cid Admitting Unavailable Garima WATERS, [facility] UnavailMahesh Chapa Attending Unavailable Garima WATERS, [facility] Unavaildevora Painting NP, [place] Referring Unavaildevora Painting NP, [facility] UnavailMahesh Chapa Attending Unavailable Garima WATERS, [facility] Unavailabl e Alberto Robertson, Zakia Attending Unavaildevora Painting NP, [facility] Unavailabl e LUL WONG Attending Unavailable Medications Current Medications Medication Drug Class(es) Dates Sig (Normalized) Sig (Original) HYDROXYprogesterone caproate (alf) 250 mg/ml injectable solution (20 sources) Start: 2 inject 1 capsule by intramuscular injection every week Hydroxyprogesterone Cap(Ppres) (Reiffton) 250 mg/mL oil Active 250 MG IM EVERY WEEK September 12, 2022 11:00pm Start: 04-28-2019 End: 10-15-2019 Hydroxyprogest(Pf)(Preg Pres v) Discontinued 275 MG SC EVERY WEEK 1.1 September 03, 2019 10:16am October 15, 2019 11:27am acetaminophen 325 mg / HYDROcodone bitartrate 5 mg oral tablet (2 sources) Opioid Agonist Start: 02-19-2024 End: 02-24-2024 Sigel 325- 5 mg oral tablet Dose = 1 tab(s), Oral, q4h, PRN Pain, scale 1-6, X 5 day(s), # 12 tab(s), 0 Refill(s), Pharmacy: [facility]/pharmacy #[id number], Acute post-operative pain, 170, cm, 02/19/24 8:57:00 EDT, Height, 96.6, kg, 02/19/24 8:57:00 EDT, Dosing Weight Start Date: 02/19/24 Stop Date: 02/24/24 Status: Ordered acetaminophen 325 mg / oxyCODONE hydrochloride 5 mg oral tablet (1 source) Opioid Agonist Start: 02-21-2024 End: 02-24-2024 take 1 tablet by mouth every six hours as needed for pain Percocet 5 mg-325 mg oral tablet Dose = 1 tab(s), Oral, q6h, PRN for pain, X 3 day(s), # 8 tab(s), 0 Refill(s), Post-operative pain, 96.6 Start Date: 02/21/24 Stop Date: 02/24/24 Status: Ordered albuterol MDI (90 mcg/inh) CFC free inhalation aerosol (1 source) Start: 03-22-2025 take 1-2 puff(s) by inhalation every four hours as needed for wheezing albuterol MDI (90 mcg/inh) CFC free inhalation aerosol See Instructions, PRN Shortness of breath or wheezing, 1 to 2 puff(s) Inhalation q4h, # 18 gram(s), 0 Refill(s), Pharmacy: [facility]/pharmacy #[id number], Acute bronchitis, 170.5, cm, 03/22/25 15:40:00 EDT, Height, kg, 03/22/25 15:40:00 EDT, Dosing Weight Start Date: 03/22/25 Status: Ordered Quantity: 18.0 Unit: g Repeat number: 1 Indications: Acute bronchitis, unspecified; amoxicillin 500 mg oral capsule (1 source) Penicillin-class Antibacterial Start: 05-12-2025 End: 05-22-2025 take 1 capsule by mouth twice daily amoxicillin (AMOXIL) 500 mg capsule Indications: Strep throat Take 1 capsule by mouth two times a day for 10 days. 20 capsule 05/12/2025 05/22/2025 Active amoxicillin 875 mg / clavulanate 125 mg oral tablet (2 sources) Penicillin-class Antibacterial Start: 03-22-2025 End: 03-29-2025 take 1 tablet by mouth every twelve hours amoxicillin-clavula tonia 875 mg-125 mg oral tablet 1 tab(s), Oral, q12h, X 7 day(s), # 14 tab(s), 0 Refill(s), 03/29/25 4:31:00 PM EDT, Pharmacy: [facility]/pharmacy #[id number], Acute bacterial rhinosinusitis, 170.5, cm, 03/22/25 15:40:00 EDT, Height, 88, kg, 03/22/25 15:40:00 EDT, Dosing Weight Start Date: 03/22/25 Stop Date: 03/29/25 Status: Ordered Quantity: 14.0 Unit: tab(s) Repeat number: 1 Indications: Acute sinusitis, unspecified; Start: 02-22-2025 End: 03-04-2025 take 1 tablet by mouth twice daily amoxicillin-clavulanate potassium (AUGMENTIN) 875-125 mg per tablet Indications: Acute non-recurrent streptococcal tonsillitis Take 1 tablet by mouth two times a day for 10 days. 20 tablet 02/22/2025 03/04/2025 Active aspirin 81 mg oral tablet (7 sources) Platelet Aggregation Inhibitor, Nonsteroidal Anti-inflammatory Drug Start: 12-06-2022 take 81 mg by mouth once daily Aspirin Active 81 MG PO DAILY December 06, 2022 12:00am Start: 11-18-2021 aspirin 81 mg oral delayed release tablet Dose : 81 mg = 1 tab(s), Oral, Daily, # 30 tab(s), 2 Refill(s), Headache Neck pain Start Date: 11/18/21 Status: Ordered F09-uhusizfevmumhtjtezbigp-O 6 1,000mcg-680mcg DFE-1.5 mg chew (3 sources) L82-ibcadsidptqu ydrofolate-B6 1,000mcg-680mcg DFE-1.5 mg chew Active X98-vzrfjoypsjvs ydrofolate-B6 1,000mcg-680mcg DFE-1.5 mg chew brexpiprazole 0.5 mg oral tablet (4 sources) Atypical Antipsychotic Start: 07-07-2023 take 0.5 tablet by mouth once daily Rexulti 0.5 mg oral tablet TAKE 0.5 TABLETS A DAY Start Date: 07/07/23 Status: Ordered brexpiprazole (REXULTI) 1 mg (4)- 2 mg (3) tablets in a dose pack (3 sources) brexpiprazole (REXULTI) 1 mg (4)- 2 mg (3) tablets in a dose pack Active brexpiprazole (R EXULTI) 1 mg (4)- 2 mg (3) tablets in a dose pack cefdinir 300 mg oral capsule (1 source) Cephalosporin Antibacterial Start: 12-20-2023 End: 12-30-2023 cefdinir 300 mg oral capsule Dose : 300 mg = 1 cap(s), Oral, q12h, X 10 day(s), # 20 cap(s), 0 Refill(s), 12/30/23 7:12:00 PM EST, 97.6 Start Date: 12/20/23 Stop Date: 12/30/23 Status: Ordered cholecalciferol 0.125 mg oral capsule (3 sources) Vitamin D Cholecalciferol, Vitamin D3, (D3-5000) 125 mcg (5,000 unit) cap Active clopidogrel 75 mg oral tablet (3 sources) P2Y12 Platelet Inhibitor Start: 11-18-2021 clopidogrel 75 mg oral tablet Dose : 75 mg = 1 tab(s), Oral, qDay, # 30 tab(s), 2 Refill(s), Headache Neck pain Start Date: 11/18/21 Status: Ordered Famotidine (17 sources) Histamine-2 Receptor Antagonist Start: 12-06-2022 take 1 tablet by mouth once daily Pepcid Active 1 TABLET SL/PO DAILY December 06, 2022 12:00am Start: 06-06-2022 End: 06-12-2022 take 1 tablet by mouth twice daily Famotidine (Pepcid) 20 mg tablet Discontinued 20 MG PO TWICE A DAY June 05, 2022 11:00pm June 12, 2022 3:36pm FLUoxetine 60 mg oral tablet (8 sources) Serotonin Reuptake Inhibitor Start: 09-10-2023 FLUoxetine 60 mg ora l tablet Dose : 60 mg = 1 tab(s), Oral, qAM, # 30 tab(s), 0 Refill(s) Start Date: 09/10/23 Status: Ordered Start: 09-24-2023 take 1 tablet by mouth once FL Uoxetine (PROZAC) 60 mg tablet Take 1 tablet by mouth every afternoon. 08/17/2023 Active Start: 04-18-2023 take 3 capsules by m outh once daily for anxiety FLUoxetine 20 mg oral capsule TAKE 3 CAPSULES BY MOUTH EVERY DAY FOR ANXIETY/DEPRESSION Start Date: 04/18/23 Status: Ordered Start: 12-19-2022 take 1 capsule by mo [facility] once daily Fluoxetine (Prozac) 40 mg Capsule Active 40 MG PO DAILY December 19, 2022 12:00am Comment on above: Take 1 tablet by anuja every afternoon. fluticasone propionate 0.05 mg/actuat metered dose nasal spray (1 source) Corticosteroid Start: 5 End: 5 take 100 ug nasal route once daily fluticasone 50 mcg/inh NASAL spray 100 mcg Dose = 2 spray(s), Nostril, each, qDay, shake well before using, # 16 gram(s), 0 Refill(s), Pharmacy: [facility]/pharmacy #[id number], Acute bacterial rhinosinusitis, 170.5, cm, 03/22/25 15:40:00 EDT, Height, kg, 03/22/25 15:40:00 EDT, Dosing Weight Start Date: 03/22/25 Stop Date: 04/21/25 Status: Ordered Quantity: 16.0 Unit: g Repeat number: 1 Indications: Acute sinusitis, unspecified; multivitamin, (1 source) Start: 5 take 1 tablet by mouth once daily multivitamin, Dose = 1 tab(s), Oral, Daily, 0 Refill(s) Start Date: 12/30/24 Status: Ordered Repeat number: 1 24 hr naproxen 500 mg extended release oral tablet (3 sources) Nonsteroidal Anti-inflammatory Drug Start: 4 End: 4 naproxen 500 mg (as sodium) oral tablet, extended release Dose : 500 mg = 1 tab(s), Oral, BID, PRN as needed for pain, X 14 day(s), # 28 tab(s), 1 Refill(s), 02/13/24 5:50:00 PM EDT, Pharmacy: [facility]/pharmacy #[id number], Pain, 167, cm, 01/12/24 14:44:00 EST, Height, kg, 01/12/24 14:44:00 EST, Dosing Weight Start Date: 01/16/24 Stop Date: 02/13/24 Status: Ordered Start: 06-06-2023 End: 06-13-2023 naproxen 500 mg oral tablet Dose : 500 mg = 1 tab(s), Oral, BID, X 7 day(s), # 14 tab(s), 0 Refill(s), 06/13/23 1:42:00 EDT Start Date: 06/06/23 Stop Date: 06/13/23 Status: Ordered NIFEdipine 10 mg oral capsule (3 sources) Dihydropyridine Calcium Channel Kojo Start: 12-07-2022 take 10 mg by mouth every four hours Nifedipine Active 10 MG PO Q4H 60 December 07, 2022 12:00am ondansetron 4 mg disintegrating oral tablet (20 sources) Serotonin-3 Receptor Antagonist Start: 02-19-2024 ondansetron 4 mg oral tablet, disintegrating 0 Refill(s) Start Date: 02/19/24 Status: Ordered Start: 01-16-2024 End: 02-13-2024 ondansetron 4 mg oral tablet , disintegrating Dose : 4 mg = 1 tab(s), Oral, q8h, PRN as needed for nausea/vomiting, X 14 day(s), # 30 tab(s), 1 Refill(s), 02/13/24 5:52:00 PM EDT, Pharmacy: [facility]/pharmacy #[id number], 167, cm, 01/12/24 14:44:00 EST, Height, kg, 01/12/24 14:44:00 EST, Dosing Weight Start Date: 01/16/24 Stop Date: 02/13/24 Status: Ordered Start: 09-10-2023 End: 11-09-2023 Zofran 4 mg oral tablet Dose : 4 mg = 1 tab(s), Oral, q6h, PRN Nausea/Vomiting, X 30 day(s), # 30 tab(s), 1 Refill(s), 11/09/23 4:08:00 PM EST, Pharmacy: [facility]/pharmacy #[id number], Nausea, 172.7, cm, 07/07/23 16:53:00 EDT, Height, kg, 09/10/23 15:39:00 EDT, Dosing Weight Start Date: 09/10/23 Stop Date: 11/09/23 Status: Ordered Start: 06-06-2022 End: 08-13-2022 take 4 mg by mouth every eight hours Ondansetron Discontinued 4 MG PO Q8H June 05, 2022 11:00pm August 13, 2022 8:28am ondansetron 4 mg oral tablet, disintegrating (3 sources) Start: 11-18-2021 End: 11-22-2021 ondansetron 4 mg oral tablet, disintegrating Dose : 4 mg = 1 tab(s), Oral, q6h, X 4 day(s), # 16 tab(s), 0 Refill(s), 11/22/21 18:33:00 EST, Headache Neck pain Start Date: 11/18/21 Stop Date: 11/22/21 Status: Ordered Pnv No.63-Iron,Tnfnhmfa-Vi-Q galvez (12 sources) Start: 06-12-2022 take 1 capsule by mouth once daily Pnv No.63-Iron,Openkfox-Gi-F galvez Active 1 CAP PO DAILY June 11, 2022 11:00pm Start: 06-12-2022 take 1 capsule by mo ut once daily Pnv No.63-Iron,Gysyuvjd-Ul-Qfg Active 1 CAP PO DAILY June 12, 2022 12:00am progesterone 100 mg vaginal insert (10 sources) Progesterone Start: 12-06-2022 Progesterone M icronized (Endometrin) 100 mg Insert Active 2 INSERT VAGINAL DAILY December 06, 2022 12:00am Start: 10-02-2022 End: 10-11-2022 Progesterone Micronized Disc ontinued 200 MG VAGINAL AT BEDTIME 60 October 02, 2022 12:00am October 11, 2022 11:22am Tylenol with Codeine #3 use acetaminophen-codeine 300 mg-30 mg tablet (3 sources) Start: 11-18-2021 End: 11-21-2021 take 1 tablet by mouth every six hours as needed for pain Tylenol with Codeine #3 use acetaminophen-codeine 300 mg-30 mg tablet Dose = 1 tab(s), Oral, q6hr, PRN as needed for pain, X 3 day(s), # 12 tab(s), 0 Refill(s), Headache Neck pain, 83.3 Start Date: 11/18/21 Stop Date: 11/21/21 Status: Ordered zuranolone (ZURZUVAE ORAL) (2 sources) zuranolone (ZURZ UVAE ORAL) Take 50 mg by mouth two times a day at 6 am and 9 pm. Take with fat-containing food. Active Completed/Discontinued Medications Medication Drug Class(es) Dates Sig (Normalized) Sig (Original) benzoyl peroxide 0.05 mg/mg / clindamycin phosphate 0.012 mg/mg topical gel (2 sources) Lincosamide Antibacterial Start: 08-14-2018 Clindamycin-Benzoy l Peroxide 1.2 %(1 % base) -5 % gel Indications: Acne vulgaris Apply 1 application to affected area once daily. 45 g 1 08/14/2018 Active Comment on above: Apply 1 application to affected area once daily. cephalexin 500 mg oral capsule (9 sources) Cephalosporin Antibacterial Start: 08-22-2022 End: 08-29-2022 take 500 mg by mouth three times daily Cephalexin Discontinued 500 MG PO THREE TIMES A DAY 13 06August 21, 2022 11:00pm August 28, 2022 11:03pm space evenly during waking hours citalopram 20 mg oral tablet (20 sources) Serotonin Reuptake Inhibitor Start: 07-14-2022 take 1 tablet by mouth once daily citalopram (CELEXA) 20 mg tablet Take 20 mg by mouth once daily. 0 07/14/2022 Active Start: 06-17-2022 End: 07-17-2022 take 40 mg by mouth once daily Citalopram Discontinued 40 MG PO DAILY June 16, 2022 11:00pm July 17, 2022 10:27am Start: 10-22-2021 End: 06-17-2022 take 1 tablet by mouth once daily Citalopram (Celexa) 20 mg tablet Discontinued 20 MG PO DAILY October 22, 2021 11:14am June 17, 2022 12:46pm Start: 08-27-2019 End: 09-23-2019 take 20 mg by mouth once daily Citalopram Discontinued 20 MG PO DAILY September 08, 2019 3:28pm September 23, 2019 12:38pm Comment on above: Take 20 mg by mouth once daily. dilTIAZem (13 sources) Calcium Channel Kojo Start: 10-23-2020 End: 06-05-2021 diltiazem HCl Discontinued 1 EACH .Route TWICE A DAY 1 October 23, 2020 12:00am June 05, 2021 9:55am apply topically bid prn pain 1 ea Start: 10-23-2020 End: 06-05-2021 diltiazem HCl Discontinued 1 EACH .Route TWICE A DAY 1 October 23, 2020 1:00am June 05, 2021 10:55am apply topically bid prn pain 1 ea levonorgestrel 0.200886 mg/hr intrauterine system (13 sources) Progestin, Progestin-containing Intrauterine Device Start: 06-05-2021 End: 06-05-2021 Levonorgestrel (Liletta) 20.1 mcg/24 hrs (6 yrs) 52 mg intrauterine device Discontinued 1 DEVICE INTRA-UTER ONCE June 04, 2021 11:00pm June 05, 2021 10:07am as a single dose medroxyPROGESTERone acetate 10 mg oral tablet (13 sources) Progestin Start: 09-18-2021 End: 10-22-2021 take 1 tablet by mouth once daily Medroxyprogesterone (Provera) 10 mg tablet Discontinued 10 MG PO DAILY September 17, 2021 11:00pm October 22, 2021 11:00am norethindrone 0.35 mg oral tablet (2 sources) Start: 06-11-2018 take 1 tablet by mouth once daily Norethindrone, Contraceptive, (ORTHO MICRONOR) 0.35 mg tablet Take 1 tablet by mouth once daily. 3 Package 4 06/11/2018 Active Comment on above: Take 1 tablet by anuja once daily. omeprazole 20 mg delayed release oral capsule (2 sources) Proton Pump Inhibitor Start: 09-10-2023 End: 12-09-2023 omeprazole 20 mg oral delayed release capsule Dose : 20 mg = 1 cap(s), Oral, qDay, # 90 cap(s), 0 Refill(s), Pharmacy: [facility]/pharmacy #[id number], Nausea, 172.7, cm, 07/07/23 16:53:00 EDT, Height, kg, 09/10/23 15:39:00 EDT, Dosing Weight Start Date: 09/10/23 Stop Date: 12/09/23 Status: Ordered potassium chloride 20 meq oral tablet (2 sources) Start: 09-10-2023 End: 09-15-2023 Potassium Chloride (Eqv-K-Tab) 20 mEq oral tablet, extended release Dose : 20 mEq = 1 tab(s), Oral, qDay, take with food, # 5 tab(s), 0 Refill(s), Pharmacy: [facility]/pharmacy #[id number], Hypokalemia Diarrhea, 172.7, cm, 07/07/23 16:53:00 EDT, Height, kg, 09/10/23 15:39:00 EDT, Dosing Weight Start Date: 09/10/23 Stop Date: 09/15/23 Status: Ordered Dmagfpoy-Zc-Ysr-Fe-FA ( VITAMIN) tab (2 sources) Start: 02-17-2019 take 1 tablet by mouth once daily Wddwkcxb-Bx-Zsh-Fe-FA ( VITAMIN) tab Take 1 tablet by mouth once daily. 30 tablet 11 02/17/2019 Active Comment on above: Take 1 tablet by anuja once daily. prochlorperazine 10 mg oral tablet (12 sources) Phenothiazine Start: 06-17-2022 End: 10-11-2022 take 1 tablet by mouth every eight hours Prochlorperazine Maleate (Compazine) 10 mg tablet Discontinued 10 MG PO Q8H 90 June 16, 2022 11:00pm October 11, 2022 11:23am promethazine hydrochloride 12.5 mg oral tablet (2 sources) Phenothiazine Start: 05-27-2024 End: 06-01-2024 promethazine 12.5 mg oral tablet Dose : 12.5 mg = 1 tab(s), Oral, q4h, # 20 tab(s), 0 Refill(s) Start Date: 05/27/24 Stop Date: 06/01/24 Status: Ordered sertraline 100 mg oral tablet (15 sources) Serotonin Reuptake Inhibitor Start: 11-25-2018 End: 11-03-2019 take 1 tablet by mouth once daily sertraline (ZOLOFT) 100 mg tablet Take 1 tablet by mouth once daily. 30 tablet 2 11/25/2018 Active Comment on above: Take 1 tablet by anuja th once daily. 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] Onset: 11-18-2021 Chronic Biliary tract disease (7 sources) Biliary calculus 01-05-2024 Episodic Cardiac dysrhythmias (7 sources) Premature atrial contraction; Translations: [Atrial premature depolarization] 09-08-2022 Chronic Cardiac dysrhythmias (1 source) Tachycardia; Translations: [Tachycardia, unspecified] 09-09-2023 Episodic Conditions associated with dizziness or vertigo (13 sources) Lightheadedness; Translations: [Dizziness and giddiness] 08-16-2019 Episodic Fever of unknown origin (1 source) Fever; Translations: [Fever, unspecified] Onset: 12-20-2023 Episodic Gastrointestinal hemorrhage (13 sources) Rectal hemorrhage; Translations: [Hemorrhage of anus and rectum] 10-22-2021 Episodic Headache; including migraine (14 sources) Headache; Translations: [Headache, unspecified] Onset: 11-18-2021 Episodic Headache; including migraine (1 source) Headache; including migraine; Translations: [Headache, unspecified] Onset: 11-25-2024 Immunizations and screening for infectious disease (17 sources) Influenza vaccination given; Translations: [Encounter for immunization] Onset: 10-15-2024 09-10-2019 Episodic Malaise and fatigue (1 source) Fatigue; Translations: [Chronic fatigue, unspecified] 11-12-2023 Chronic Malaise and fatigue (12 sources) Fatigue 07-07-2023 Episodic Menstrual disorders (2 sources) Menorrhagia 12-30-2024 Chronic Mood disorders (19 sources) Recurrent major depressive episodes, moderate ; Translations: [Major depressive disorder, recurrent, moderate] Onset: 11-25-2024 08-07-2021 Chronic Mood disorders (1 source) Mood disorders; Translations: [Depression, unspecified] Onset: 12-10-2024 Nausea and vomiting (15 sources) Nausea, vomiting and diarrhea; Translations: [Nausea with vomiting, unspecified] Onset: 05-27-2024 06-14-2022 Episodic Other aftercare (2 sources) Surgical follow-up 03-03-2024 Episodic Other bone disease and musculoskeletal deformities (20 sources) Segmental and somatic dysfunction; Translations: [Segmental and somatic dysfunction of lumbar region] 09-10-2019 Episodic Other complications of ; puerperium affecting management of mother (6 sources) Disease caused by 2019-nCoV; Translations: [Other viral diseases complicating childbirth] 11-27-2022 Episodic Other complications of (20 sources) High risk ; Translations: [Supervision of high risk , unspecified, unspecified trimester] 09-10-2019 Episodic Other complications of (13 sources) Nausea and vomiting; Translations: [Vomiting of , unspecified] 03-24-2019 Episodic Other complications of (15 sources) Supervision of with other poor reproductive or obstetric history, unspecified trimester; Translations: [History of anomaly in prior , currently ] Onset: 11-25-2024 09-10-2019 Episodic Other complications of (12 sources) H/O: depression; Translations: [History of depression, currently ] 06-18-2022 Episodic Other complications of (2 sources) Supervision of high risk , unspecified, second trimester; Translations: [Supervision of high risk , unspecified, second trimester] Onset: 12-30-2024 Episodic Other complications of (2 sources) Supervision of other high risk pregnancies, unspecified trimester; Translations: [Supervision of other high risk pregnancies, unspecified trimester] Onset: 11-25-2024 Episodic Other female genital disorders (20 sources) History of premature labor; Translations: [Personal history of pre-term labor] 10-02-2022 Episodic Other female genital disorders (8 sources) Cyst of uterine adnexa 01-05-2024 Episodic Other gastrointestinal disorders (13 sources) Constipation; Translations: [Constipation, unspecified] 03-12-2019 Episodic Other gastrointestinal disorders (11 sources) Diarrhea 09-10-2023 Episodic Other gastrointestinal disorders (1 source) Constipation, unspecified; Translations: [Constipation, unspecified] Onset: 01-20-2025 Episodic Other nervous system disorders (2 sources) Postoperative pain ; Translations: [Other acute postprocedural pain] Onset: 02-19-2024 Episodic Other nutritional; endocrine; and metabolic disorders (2 sources) Obesity, unspecified; Translations: [Obesity, unspecified] Onset: 11-25-2024 Chronic Other and delivery including normal (20 sources) ; Translations: [First trimester ] Onset: 05-27-2024 07-26-2019 Episodic Comment on above: System added from do cumentation. Status documented as Yes on Admission Other upper respiratory disease (5 sources) Allergic rhinitis due to pollen; Translations: [Allergic rhinitis due to pollen] Onset: 2012 11-26-2017 Chronic Other upper respiratory infections (5 sources) Chronic sinusitis; Translations: [Other chronic sinusitis] Onset: 02-24-2012 11-26-2017 Chronic Other upper respiratory infections (9 sources) Acute upper respiratory infection; Translations: [Acute upper respiratory infection, unspecified] Onset: 03-22-2025 Episodic Pancreatic disorders (not diabetes) (1 source) Pancreatitis 02-08-2025 Episodic Residual codes; unclassified (2 sources) History of hemorrhage 12-30-2024 Episodic Residual codes; unclassified (1 source) Edema, unspecified; Translations: [Edema, unspecified] Onset: 01-11-2025 Episodic Residual codes; unclassified (2 sources) 34 weeks gestation of ; Translations: [34 weeks gestation of ] Onset: 11-25-2024 Episodic Spondylosis; intervertebral disc disorders; other back problems (14 sources) Neck pain; Translations: [Cervicalgia] Onset: 11-18-2021 Episodic Sprains and strains (1 source) Sprain of ankle; Translations: [Sprain of unspecified ligament of unspecified ankle, initial encounter] Onset: 06-14-2024 Episodic Suicide and intentional self-inflicted injury (1 source) Suicidal ideations; Translations: [Suicidal ideations] Onset: 01-20-2025 Episodic Thyroid disorders (20 sources) Goiter; Translations: [Iodine-deficiency related diffuse (endemic) goiter] Onset: 12-10-2024 Chronic Unclassified (1 source) Unknown / UNK(Unknown) Onset: 05-30-2017 Unclassified (9 sources) Breast feeding (infant) (observable entity) 07-16-2020 Comment on above: System added from do cumentation. Breast feeding Status documented as Yes on Admission Viral infection (1 source) COVID-19; Translations: [COVID-19] Onset: 12-10-2024 Past or Other Problems Problem Classification Problem Date Documented Da te Episodic/Chronic Abdominal pain (20 sources) Left upper quadrant pain; Translations: [Left upper quadrant pain] Onset: 05-17-2018 Resolved: 05-17-2018 Episodic Diabetes mellitus without complication (2 sources) Glycosuria; Translations: [Glycosuria] Onset: 11-25-2024 Episodic Diabetes or abnormal glucose tolerance complicating ; childbirth; or the puerperium (15 sources) Abnormal glucose level; Translations: [Abnormal glucose complicating ] Onset: 12-10-2024 Episodic E Codes: Fall (2 sources) Unspecified fall, initial encounter; Translations: [Unspecified fall, initial encounter] Onset: 11-25-2024 Episodic Early or threatened labor (20 sources) Threatened premature labor - not delivered ; Translations: [False labor before 37 completed weeks of gestation, unspecified trimester] Onset: 04-30-2018 Resolved: 06-11-2018 Episodic Genitourinary symptoms and ill-defined conditions (20 sources) Bacteriuria; Translations: [Bacteriuria] Onset: 12-10-2024 Episodic Hemorrhage during ; abruptio placenta; placenta previa (15 sources) Placenta previa; Translations: [Complete placenta previa NOS or without hemorrhage, unspecified trimester] Onset: 04-12-2018 Resolved: 05-04-2018 06-15-2019 Episodic Miscellaneous mental health disorders (20 sources) depression; Translations: [ depression] Onset: 09-23-2018 07-22-2018 Episodic Other complications of ; puerperium affecting management of mother (5 sources) problem; Translations: [Unspecified disorders of ] Onset: 09-25-2018 09-25-2018 Episodic Other complications of ; puerperium affecting management of mother (20 sources) Other viral diseases complicating childbirth; Translations: [Other viral diseases in the mother, delivered, with or without mention of antepartum condition] Onset: 12-10-2024 Episodic Other complications of (20 sources) Supervision of high risk , unspecified, unspecified trimester; Translations: [Supervision of unspecified high-risk ] Onset: 10-15-2024 Episodic Other complications of (2 sources) Reduced movement; Translations: [Decreased movements, unspecified trimester, not applicable or unspecified] Onset: 04-30-2018 Resolved: 05-04-2018 05-04-2018 Episodic Other female genital disorders (20 sources) Personal history of pre-term labor; Translations: [Personal history of pre-term labor] Onset: 12-10-2024 Episodic Other gastrointestinal disorders (2 sources) Diarrhea, unspecified; Translations: [Diarrhea, unspecified] Onset: 09-11-2023 Episodic Other injuries and conditions due to external causes (1 source) Unspecified injury of lower back, initial encounter; Translations: [Unspecified injury of lower back, initial encounter] Onset: 09-13-2024 Episodic Residual codes; unclassified (5 sources) Family history of neoplasm; Translations: [Family history of other specified conditions] Onset: 11-26-2017 11-26-2017 Episodic Residual codes; unclassified (1 source) 35 weeks gestation of ; Translations: [35 weeks gestation of ] Onset: 12-10-2024 Episodic Residual codes; unclassified (1 source) 29 weeks gestation of ; Translations: [29 weeks gestation of ] Onset: 11-10-2024 Episodic Residual codes; unclassified (1 source) 28 weeks gestation of ; Translations: [28 weeks gestation of ] Onset: 10-15-2024 Episodic Residual codes; unclassified (1 source) 26 weeks gestation of ; Translations: [26 weeks gestation of ] Onset: 09-28-2024 Episodic Residual codes; unclassified (1 source) 18 weeks gestation of ; Translations: [18 weeks gestation of ] Onset: 09-02-2024 Episodic Syncope (2 sources) Syncope; Translations: [Syncope and collapse] Onset: 05-04-2018 Resolved: 09-23-2018 09-23-2018 Episodic Unclassified (1 source) STREP THROAT/ACUTE PHARYNGITIS Onset: 05-30-2017 Urinary tract infections (4 sources) Urinary tract infectious disease; Translations: [Urinary tract infection, site not specified] Onset: 05-07-2018 Resolved: 09-23-2018 Episodic Results Test Name Value Interpretation Reference Range Facility [facility] 05-12-2025 CNOV Office Visit ([facility]WSTR ) ALMA HARRELL ([id number]) 2000 F Date Time Provider Department 05/12/25 4:[address] [facility] During your visit today, we recorded the following information about you: Temperature Pulse Respiration Blood pressure 98.8 degrees 116/minute 18/minute 125/87 Weight 89.9 kg Lul Wong APRN.[employer] 05/12/2025 4:17 PM Signed [facility] Subjective HPI HPI Almaroberta Harrell is a 25 year old female who presents today for CC of sore throat, fever, body aches. This started 4 days ago. Has tried otc medication for relief. Symptoms are worsened by nothing. Risk factors no sick exposures. Nonsmoker. Denies possibility of being . Is . .Patient presents with: Sore Throat: GALVEZ, bodyaches x4 days, intermittent low fever PAST MEDICAL HISTORY Diagnosis Date Anxiety disorder Depression Mood changes depression 09/23/2018 PAST SURGICAL HISTORY Procedure Laterality Date NONE ALLERGIES Patient has no known allergies. MEDICATIONS amoxicillin (AMOXIL) 500 mg capsule Take 1 capsule by mouth two times a day for 10 days. zuranolone (ZURZUVAE ORAL) Take 50 mg by mouth two times a day at 6 am and 9 pm. Take with fat-containing food. (Patient not taking: Reported on 05/12/2025) F60-cwvtwrhpgminozdelsn ate-B6 1,000mcg-680mcg DFE-1.5 mg chew (Patient not taking: Reported on 02/22/2025) brexpiprazole (REXULTI) 1 mg (4)- 2 mg (3) tablets in a dose pack (Patient not taking: Reported on 02/22/2025) Cholecalciferol, Vitamin D3, (D3-5000) 125 mcg (5,000 unit) cap (Patient not taking: Reported on 02/22/2025) FLUoxetine (PROZAC) 60 mg tablet Take 1 tablet by mouth every afternoon. (Patient not taking: Reported on 02/22/2025) FAMILY HISTORY Problem Relation Age of Onset Diabetes Maternal Grandmother Social History Tobacco Use Smoking status: Never Smokeless tobacco: Never Substance Use Topics Alcohol use: No Drug use: No Review of Systems Constitutional: Positive for fever. Negative for chills and fatigue. HENT: Positive for sore throat. Negative for ear discharge, ear pain, rhinorrhea, sinus pressure and sinus pain. Eyes: Negative for discharge and redness. Respiratory: Negative for cough, shortness of breath and wheezing. Cardiovascular: Negative for chest pain. Skin: Negative for rash. Objective BP 125/87 Pulse 116 Temp 37.1 ?C (98.8 ?F) Resp 18 Wt 89.9 kg (198 lb 3.1 oz) LMP 02/06/2024 (Approximate) SpO2 96% Yes BMI 31.04 kg/m? Physical Exam Constitutional: General: She is not in acute distress. Appearance: She is not toxic-appearing or diaphoretic. HENT: Head: Normocephalic and atraumatic. Right Ear: Hearing, tympanic membrane, ear canal and external ear normal. Left Ear: Hearing, tympanic membrane, ear canal and external ear normal. Nose: Nose normal. Mouth/Throat: Lips: [place]. Mouth: Mucous membranes are moist. Pharynx: Uvula midline. Posterior oropharyngeal erythema present. Tonsils: 0 on the right. 0 on the left. Eyes: General: Lids are normal. No scleral icterus. Right eye: No discharge. Left eye: No discharge. Conjunctiva/sclera: Conjunctivae normal. Pupils: Pupils are equal, round, and reactive to light. Neck: Trachea: Trachea normal. Cardiovascular: Rate and Rhythm: Normal rate and regular rhythm. Heart sounds: Normal heart sounds. Pulmonary: Effort: Pulmonary effort is normal. Breath sounds: Normal breath sounds. Musculoskeletal: Cervical back: Normal range of motion and neck supple. Lymphadenopathy: Cervical: Cervical adenopathy present. Right cervical: Superficial cervical adenopathy present. Left cervical: Superficial cervical adenopathy present. Skin: Findings: No rash. Neurological: Mental Status: She is alert and oriented to person, place, and time. {ASSESSMENT/PLAN: 1. Strep throat - ICD9: 034.0, ICD10: J02.0 (primary diagnosis) - suspect strep - Group A strep molecular testing positive - antibiotic as written - Discussed supportive care treatment with fluids, rest and analgesia. - Contagious dz precautions discussed- including considered contagious until on antibiotics for 24 hours - The patient should follow up in 3-5 days if symptoms persist or worsen - AMOXICILLIN 500 MG CAPSULE 2. Sore throat - ICD9: 462, ICD10: J02.9 Positive, strep - STREP A MOLECULAR (POC) Lul Wong APRN.[employer] History and Record Review External record(s) reviewed: prior outpatient record. Disposition The patient was discharged. Procedures Allergies As of Date: 05/12/2025 (No Known Allergies) Date Reviewed: 05/12/2025 Reviewed by: Jerrica Patel MA - Fully Assessed Reason for Visit: Sore Throat [200] Cmt: GALVEZ, bodyaches x4 days, intermittent low fever Primary Visit Diagnosis:Strep throat [J02.0] Other Visit Diagnosis:Sore throat (more content not included)... Normal [facility] STREP A MOLECULAR (POC)on Interpretation and review of laboratory results Abnormal [facility] Procedural Control Valid [facility] Strep A (POCT) Positive Abnormal Negative [facility] LABORATORYOrdered By: Yung Engel on 03-23-2025 Group A Strep PCR Int Negative Results: Negative for Streptococcus pyogenes by PCR. A negative test result does not exclude the possibility of infection because the test result may be affected by improper specimen collection, technical error, sample mix-up, or because the number of organisms in the sample is below the limit of detection of the test. The Xpert Xpress Strep A test should not be used as the sole basis for treatment or other patient management decisions. The Xpert Xpress Strep A test does not differentiate asymptomatic carriers of Group A streptococci from those exhibiting streptococcal infection. The results from the Xpert Xpress Strep A test should be interpreted in conjunction with other laboratory and clinical data available to the clinician. The Xpert Xpress Strep A Assay is a real-time polymerase chain reaction (PCR) based qualitative in vitro diagnostic test for the direct detection of Streptococcus pyogenes (Group A Beta hemolytic Streptococcus) in throat swab specimens from patients with signs and symptoms of pharyngitis. The assay is not intended to monitor treatment for Group A Streptococcus infections. Invalid Interpretation Code AO Auto Urine SS S. pyogenes DNA KATEY+probe Ql (Throat) Not Detected (03/23/25 9:59 AM) Normal Not Detected AO Auto Urine SS STREPAon 03-23-2025 Group A Strep PCR Not detected Normal Not Detected [facility] Comment on above: Performed By: #### G FR, MG, CBC, DIFF, CMP, MORPH #### [address] [address] Group A Strep PCR Int Normal [facility] Comment on above: Result Comment: Nega tive Results: Negative for Streptococcus pyogenes by PCR. A negative test result does not exclude the possibility of infection because the test result may be affected by improper specimen collection, technical error, sample mix-up, or because the number of organisms in the sample is below the limit of detection of the test. The Xpert Xpress Strep A test should not be used as the sole basis for treatment or other patient management decisions. The Xpert Xpress Strep A test does not differentiate asymptomatic carriers of Group A streptococci from those exhibiting streptococcal infection. The results from the Xpert Xpress Strep A test should be interpreted in conjunction with other laboratory and clinical data available to the clinician. The Xpert Xpress Strep A Assay is a real-time polymerase chain reaction (PCR) based qualitative in vitro diagnostic test for the direct detection of Streptococcus pyogenes (Group A Beta hemolytic Streptococcus) in throat swab specimens from patients with signs and symptoms of pharyngitis. The assay is not intended to monitor treatment for Group A Streptococcus infections. See Interp Performed By: #### G FR, MG, CBC, DIFF, CMP, MORPH #### [address] [address] CNOVon 02-22-2025 CNOV Office Visit (UCWSTR ) ALMA HARRELL ([id number]) 2000 F Date Time Provider Department 02/22/25 5:[address] [facility] During your visit today, we recorded the following information about you: Temperature Pulse Respiration Blood pressure 99.3 degrees 124/minute 18/minute 120/81 Weight Last Period 89 kg 02/06/24 Mariposa Najera PA-C 02/22/2025 6:23 PM Signed This note was created using [email or web address]. Subjective Alma Harrell is a 24 year old female. Patient is a 24-year-old female who complains of worsening sore throat that she has been experiencing for the past 3 days. Patient denies congestion, sinus pressure, ear pain, cough or other illness symptoms. Patient reports no fever, chills or myalgia. Patient is 2 months and is breast-feeding. Patient reports that other family members at home are currently asymptomatic. Sore Throat Review of Systems HENT: Positive for sore throat. All other systems reviewed and are negative. Objective BP 120/81 Pulse (!) 124 Temp 37.4 ?C (99.3 ?F) Resp 18 Wt 89 kg (196 lb 3.4 oz) LMP 02/06/2024 (Approximate) SpO2 97% Yes BMI 30.73 kg/m? Physical Exam Vitals and nursing note reviewed. Constitutional: Appearance: Normal appearance. She is normal weight. HENT: Head: Normocephalic and atraumatic. Right Ear: External ear normal. Left Ear: External ear normal. Nose: Nose normal. Mouth/Throat: Mouth: Mucous membranes are moist. Pharynx: Oropharynx is clear. Posterior oropharyngeal erythema present. Eyes: Extraocular Movements: Extraocular movements intact. Conjunctiva/sclera: Conjunctivae normal. Pupils: Pupils are equal, round, and reactive to light. Cardiovascular: Rate and Rhythm: Normal rate and regular rhythm. Pulses: Normal pulses. Pulmonary: Effort: Pulmonary effort is normal. Breath sounds: Normal breath sounds. Musculoskeletal: Cervical back: Normal range of motion and neck supple. Skin: General: Skin is warm and dry. Capillary Refill: Capillary refill takes less than 2 seconds. Neurological: General: No focal deficit present. Mental Status: She is alert and oriented to person, place, and time. Psychiatric: Mood and Affect: Mood normal. Behavior: Behavior normal. Thought Content: Thought content normal. Judgment: Judgment normal. Assessment and Plan Physical exam findings as noted above. Rapid strep test is positive. Patient was provided with a prescription for Augmentin 875-125 mg and supportive care instructions were discussed. Patient verbalizes excellent understanding of same. CLINICAL IMPRESSION: Acute Streptococcal Tonsillitis ASSESSMENT/PLAN: 1. Sore throat - ICD9: 462, ICD10: J02.9 (primary diagnosis) - STREP A MOLECULAR (POC) 2. Acute non-recurrent streptococcal tonsillitis - ICD9: 034.0, ICD10: J03.00 - AMOXICILLIN 875 MG-POTASSIUM CLAVULANATE 125 MG TABLET MDM Amount and/or Complexity of Data Reviewed Clinical lab tests: ordered and reviewed Risk of Complications, Morbidity, and/or Mortality Presenting problems: low Diagnostic procedures: low Management options: kike Najera PA-C Allergies As of Date: 02/22/2025 (No Known Allergies) Date Reviewed: 02/22/2025 Reviewed by: Yulia Kee LPN - Fully Assessed Reason for Visit: Sore Throat [200] Cmt: Headache, x 3 days Primary Visit Diagnosis:Sore throat [J02.9] Other Visit Diagnosis:Acute non-recurrent streptococcal tonsillitis [J03.00] Order(s):STREP A MOLECULAR (POC) [[id number]] Order #: [id number]. #:[id number] amoxicillin-clavulanate potassium (AUGMENTIN) 875-125 mg per tabletTake 1 tablet by mouth two times a day for 10 days.Disp: 20 tabletRfl: 0 Prescriptions as of 02/22/2025 - zuranolone (ZURZUVAE ORAL) Take 50 mg by mouth two times a day at 6 am and 9 pm. Take with fat-containing food. - amoxicillin-clavulanate potassium (AUGMENTIN) 875-125 mg per tablet Take 1 tablet by mouth two times a day for 10 days. - Y34-ngfkfxseqhgtlhyfhkn ate-B6 1,000mcg-680mcg DFE-1.5 mg chew - brexpiprazole (REXULTI) 1 mg (4)- 2 mg (3) tablets in a dose pack - Cholecalciferol, Vitamin D3, (D3-5000) 125 mcg (5,000 unit) cap - FLUoxetine (PROZAC) 60 mg tablet Take 1 tablet by mouth every afternoon. Problem List As Of Date 02/22/2025 Noted Resolved Allergic rhinitis due to pollen [J30.1] 2012 Other chronic sinusitis [J32.8] 02/24/2012 Family history of hemangioma and lymphangioma [*11/26/2017 Vaginal bleeding in , second trimester*04/12/2018 05/04/2018 Decreased movement [O36.8190] 04/30/2018 05/04/2018 uterine contractions [O47.00] 04/30/2018 06/11/2018 Syncope [R55] 05/04/2018 09/23/2018 Urinary tract infection [N39.0] 05/07/2018 09/23/2018 uterine contractions in third trimester*05/10/2018 06/11/2018 Abdominal pain [R10.9] (more content not included)... Normal [facility] STREP A MOLECULAR (POC)on Interpretation and review of laboratory results Abnormal [facility] Procedural Control Valid [facility] Strep A (POCT) Positive Abnormal Negative [facility] .GFRon 02-08-2025 Estimated Glomerular Filtration Rate 88 ml/min/1.73sqm Normal [facility] Comment on above: Result Comment: Stages of Chronic Kidney Disease (CKD) Stage Description eGFR(ml/min/1.73 sq.m.) CKD 1 Normal kidney function or >=90 normal kindney function with possible kidney damage (ex. Proteinuria) CKD 2 Kidney damage with mild loss 60-89 of kidney function CKD 3a Mild to moderate loss of kidney 45-59 function CKD 3b Moderate to severe loss of 30-44 of kindey function CKD 4 Severe loss of kidney function 15-29 CKD 5 Kidney failure <15 Note: (go live 2024) the eGFR calculation was updated to the 2020 CKD-EPI creatinine equation without a race factor to calculate the eGFR results. Performed By: #### G FR, MG, CBC, DIFF, CMP, MORPH #### [address] [address] .Manual Diffon 02-08-2025 Basophil %, Manual 0.0 % Normal 0.0-2.[address] [facility] Comment on above: Performed By: #### G FR, MG, CBC, DIFF, CMP, MORPH #### [address] [address] Basophil, Abs Manual 0.0 10 3/mcL Normal 0.0-0.2 [facility] Comment on above: Performed By: #### G FR, MG, CBC, DIFF, CMP, MORPH #### [address] [address] Eosinophil %, Manual 26.0 % High 0.0-7.0 [facility] Comment on above: Performed By: #### G FR, MG, CBC, DIFF, CMP, MORPH #### [address] [address] Eosinophil, Abs Manual 3.2 10 3/mcL High 0.0-0.7 [facility] Comment on above: Performed By: #### G FR, MG, CBC, DIFF, CMP, MORPH #### [address] [address] Lymphocyte %, Manual 26.0 % Normal 20.0-40.0 [facility] Comment on above: Performed By: #### G FR, MG, CBC, DIFF, CMP, MORPH #### [address] [address] Lymphocyte, Abs Manual 3.2 10 3/mcL Normal 0.9-4.3 [facility] Comment on above: Performed By: #### G FR, MG, CBC, DIFF, CMP, MORPH #### [address] [address] Monocyte %, Manual 0.0 % Low 2.0-13.[address] [facility] Comment on above: Performed By: #### G FR, MG, CBC, DIFF, CMP, MORPH #### [address] [address] Monocyte, Abs Manual 0.0 10 3/mcL Low 0.1-1.4 [facility] Comment on above: Performed By: #### G FR, MG, CBC, DIFF, CMP, MORPH #### [address] [address] Neutrophil %, Manual 48.0 % Low 50.0-75.0 [facility] Comment on above: Performed By: #### G FR, MG, CBC, DIFF, CMP, MORPH #### [place] [address] Neutrophil, Abs Manual 5.8 10 3/mcL Normal 2.3-8.1 [facility] Comment on above: Performed By: #### G FR, MG, CBC, DIFF, CMP, MORPH #### [place] [address] Nucleated RBC 0.0 /100 WBC Normal [facility] Comment on above: Performed By: #### G FR, MG, CBC, DIFF, CMP, MORPH #### [address] [address] .Morphon 02-08-2025 Platelet Estimate Normal Normal [facility] Comment on above: Performed By: #### G FR, MG, CBC, DIFF, CMP, MORPH #### [place] [address] RBC morphology finding Nom (Bld) Normal Normal [facility] Comment on above: Performed By: #### G FR, MG, CBC, DIFF, CMP, MORPH #### [place] [id number] AMYon 02-08-2025 Amylase [Catalytic activity/Vol] 76 U/L Normal 25-115 [facility] Comment on above: Performed By: #### G FR, MG, CBC, DIFF, CMP, MORPH #### [place] [id number] BMPon 02-08-2025 BUN/Creatinine Ratio 11 ratio Normal 7-27 [facility] Comment on above: Performed By: #### G FR, MG, CBC, DIFF, CMP, MORPH #### [address] [address] Calcium [Mass/Vol] 9.0 mg/dL Normal 8.4-10.[address] [facility] Comment on above: Performed By: #### G FR, MG, CBC, DIFF, CMP, MORPH #### [address] [address] Chloride [Moles/Vol] 107 mmol/L Normal 98-107 [facility] Comment on above: Performed By: #### G FR, MG, CBC, DIFF, CMP, MORPH #### [place] [address] CO2 [Moles/Vol] 28 mmol/L Normal 22-29 [facility] Comment on above: Performed By: #### G FR, MG, CBC, DIFF, CMP, MORPH #### [place] [address] Creatinine [Mass/Vol] 0.92 mg/dL Normal 0.55-1.02 [facility] Comment on above: Result Comment: Test ing performed on Siemens Dimension EXL analyzer using a modified kinetic Nena technique. Performed By: #### G FR, MG, CBC, DIFF, CMP, MORPH #### [address] [address] Electrolyte Balance 7.0 mEq/L Normal 4.0-15.0 [facility] Comment on above: Performed By: #### G FR, MG, CBC, DIFF, CMP, MORPH #### [address] [address] Glucose [Mass/Vol] 95 mg/dL Normal 70-[address] [facility] Comment on above: Performed By: #### G FR, MG, CBC, DIFF, CMP, MORPH #### [address] [address] Potassium [Moles/Vol] 3.9 mmol/L Normal 3.5-5.1 [facility] Comment on above: Performed By: #### G FR, MG, CBC, DIFF, CMP, MORPH #### [address] [address] Sodium [Moles/Vol] 142 mmol/L Normal 136-[address] [facility] Comment on above: Performed By: #### G FR, MG, CBC, DIFF, CMP, MORPH #### [address] [address] Urea nitrogen [Mass/Vol] 10 mg/dL Normal 7-18 [facility] Comment on above: Performed By: #### G FR, MG, CBC, DIFF, CMP, MORPH #### [address] [address] CBCon 02-08-2025 Erythrocyte distribution width (RBC) [Ratio] 13.1 % Normal 11.5-15.5 [facility] Comment on above: Performed By: #### G FR, MG, CBC, DIFF, CMP, MORPH #### [place] [address] Hematocrit (Bld) [Volume fraction] 41.1 % Normal 34.0-46.0 [facility] Comment on above: Performed By: #### G FR, MG, CBC, DIFF, CMP, MORPH #### [place] [id number] Hgb 13.9 G/dL Normal 12.0-16.0 [facility] Comment on above: Performed By: #### G FR, MG, CBC, DIFF, CMP, MORPH #### [address] [address] MCH (RBC) [Entitic mass] 29.8 pg Normal 27.0-33.0 [facility] Comment on above: Performed By: #### G FR, MG, CBC, DIFF, CMP, MORPH #### [address] [address] MCHC 33.9 G/dL Normal 32.0-36.0 [facility] Comment on above: Performed By: #### G FR, MG, CBC, DIFF, CMP, MORPH #### [place] [id number] MCV (RBC) [Entitic vol] 88.0 fL Normal 80.0-99.0 [facility] Comment on above: Performed By: #### G FR, MG, CBC, DIFF, CMP, MORPH #### [address] [address] Platelet 318 10 3/mcL Normal 150-450 [facility] Comment on above: Performed By: #### G FR, MG, CBC, DIFF, CMP, MORPH #### [address] [address] Platelet mean volume (Bld) [Entitic vol] 8.1 fL Normal 6.6-10.5 [facility] Comment on above: Performed By: #### G FR, MG, CBC, DIFF, CMP, MORPH #### [address] [address] RBC 4.67 10 6/mcL Normal 4.10-5.30 [facility] Comment on above: Performed By: #### G FR, MG, CBC, DIFF, CMP, MORPH #### [address] [address] WBC 12.2 10 3/mcL High 4.5-10.8 [facility] Comment on above: Performed By: #### G FR, MG, CBC, DIFF, CMP, MORPH #### [address] [address] LIPon 02-08-2025 Lipase Level 46 U/L Normal 16-77 [facility] Comment on above: Performed By: #### G FR, MG, CBC, DIFF, CMP, MORPH #### [address] [address] .GFRon 02-07-2025 Estimated Glomerular Filtration Rate 107 ml/min/1.73sqm Normal [facility] Comment on above: Result Comment: Stages of Chronic Kidney Disease (CKD) Stage Description eGFR(ml/min/1.73 sq.m.) CKD 1 Normal kidney function or >=90 normal kindney function with possible kidney damage (ex. Proteinuria) CKD 2 Kidney damage with mild loss 60-89 of kidney function CKD 3a Mild to moderate loss of kidney 45-59 function CKD 3b Moderate to severe loss of 30-44 of kindey function CKD 4 Severe loss of kidney function 15-29 CKD 5 Kidney failure <15 Note: (go live 2024) the eGFR calculation was updated to the 2020 CKD-EPI creatinine equation without a race factor to calculate the eGFR results. Performed By: #### G FR, MG, CBC, DIFF, CMP, MORPH #### [place] [address] .Manual Diffon 02-07-2025 Basophil %, Manual 0.0 % Normal 0.0-2.[address] [facility] Comment on above: Performed By: #### G FR, MG, CBC, DIFF, CMP, MORPH #### [place] [address] Basophil, Abs Manual 0.0 10 3/mcL Normal 0.0-0.2 [facility] Comment on above: Performed By: #### G FR, MG, CBC, DIFF, CMP, MORPH #### [place] [address] Eosinophil %, Manual 19.0 % High 0.0-7.0 [facility] Comment on above: Performed By: #### G FR, MG, CBC, DIFF, CMP, MORPH #### [place] [address] Eosinophil, Abs Manual 1.8 10 3/mcL High 0.0-0.7 [facility] Comment on above: Performed By: #### G FR, MG, CBC, DIFF, CMP, MORPH #### [place] [address] Lymphocyte %, Manual 47.0 % High 20.0-40.0 [facility] Comment on above: Performed By: #### G FR, MG, CBC, DIFF, CMP, MORPH #### [place] [address] Lymphocyte, Abs Manual 4.5 10 3/mcL High 0.9-4.3 [facility] Comment on above: Performed By: #### G FR, MG, CBC, DIFF, CMP, MORPH #### [address] [address] Monocyte %, Manual 4.0 % Normal 2.0-13.[address] [facility] Comment on above: Performed By: #### G FR, MG, CBC, DIFF, CMP, MORPH #### [address] [address] Monocyte, Abs Manual 0.4 10 3/mcL Normal 0.1-1.4 [facility] Comment on above: Performed By: #### G FR, MG, CBC, DIFF, CMP, MORPH #### [address] [address] Neutrophil %, Manual 30.0 % Low 50.0-75.0 [facility] Comment on above: Performed By: #### G FR, MG, CBC, DIFF, CMP, MORPH #### [place] [address] Neutrophil, Abs Manual 2.9 10 3/mcL Normal 2.3-8.1 [facility] Comment on above: Performed By: #### G FR, MG, CBC, DIFF, CMP, MORPH #### [address] [address] Nucleated RBC 0.0 /100 WBC Normal [facility] Comment on above: Performed By: #### G FR, MG, CBC, DIFF, CMP, MORPH #### [address] [address] .Morphon 02-07-2025 Platelet Estimate Normal Normal [facility] Comment on above: Performed By: #### G FR, MG, CBC, DIFF, CMP, MORPH #### [place] [address] RBC morphology finding Nom (Bld) Normal Normal [facility] Comment on above: Performed By: #### G FR, MG, CBC, DIFF, CMP, MORPH #### [address] [address] CBCon 02-07-2025 Erythrocyte distribution width (RBC) [Ratio] 13.0 % Normal 11.5-15.5 [facility] Comment on above: Performed By: #### G FR, MG, CBC, DIFF, CMP, MORPH #### [address] [address] Hematocrit (Bld) [Volume fraction] 37.4 % Normal 34.0-46.0 [facility] Comment on above: Performed By: #### G FR, MG, CBC, DIFF, CMP, MORPH #### [address] [address] Hgb 13.1 G/dL Normal 12.0-16.0 [facility] Comment on above: Performed By: #### G FR, MG, CBC, DIFF, CMP, MORPH #### [address] [address] MCH (RBC) [Entitic mass] 30.7 pg Normal 27.0-33.0 [facility] Comment on above: Performed By: #### G FR, MG, CBC, DIFF, CMP, MORPH #### [address] [address] MCHC 35.0 G/dL Normal 32.0-36.0 [facility] Comment on above: Performed By: #### G FR, MG, CBC, DIFF, CMP, MORPH #### [address] [address] MCV (RBC) [Entitic vol] 87.7 fL Normal 80.0-99.0 [facility] Comment on above: Performed By: #### G FR, MG, CBC, DIFF, CMP, MORPH #### [address] [address] Platelet 268 10 3/mcL Normal 150-450 [facility] Comment on above: Performed By: #### G FR, MG, CBC, DIFF, CMP, MORPH #### [address] [address] Platelet mean volume (Bld) [Entitic vol] 7.7 fL Normal 6.6-10.5 [facility] Comment on above: Performed By: #### G FR, MG, CBC, DIFF, CMP, MORPH #### [address] [address] RBC 4.26 10 6/mcL Normal 4.10-5.30 [facility] Comment on above: Performed By: #### G FR, MG, CBC, DIFF, CMP, MORPH #### [address] [address] WBC 9.6 10 3/mcL Normal 4.5-10.8 [facility] Comment on above: Performed By: #### G FR, MG, CBC, DIFF, CMP, MORPH #### [address] [address] CMPon 02-07-2025 Albumin Level 3.3 G/dL Low 3.5-5.0 [facility] Comment on above: Performed By: #### G FR, MG, CBC, DIFF, CMP, MORPH #### [address] [address] Albumin/Globulin [Mass ratio] 1.2 {ratio} Normal 1.1-2.5 [facility] Comment on above: Performed By: #### G FR, MG, CBC, DIFF, CMP, MORPH #### [address] [address] ALP [Catalytic activity/Vol] 71 U/L Normal 40-135 [facility] Comment on above: Performed By: #### G FR, MG, CBC, DIFF, CMP, MORPH #### [address] [address] ALT [Catalytic activity/Vol] 41 U/L Normal 14-59 [facility] Comment on above: Performed By: #### G FR, MG, CBC, DIFF, CMP, MORPH #### [address] [address] AST [Catalytic activity/Vol] 24 U/L Normal 10-40 [facility] Comment on above: Performed By: #### G FR, MG, CBC, DIFF, CMP, MORPH #### [place] [address] Bili Total 0.5 mg/dL Normal 0.2-1.0 [facility] Comment on above: Result Comment: Use of this assay is not recommended for patients undergoing treatment with eltrombopag due to the potential for falsely elevated results. Performed By: #### G FR, MG, CBC, DIFF, CMP, MORPH #### [place] [address] BUN/Creatinine Ratio 15 ratio Normal 7-27 [facility] Comment on above: Performed By: #### G FR, MG, CBC, DIFF, CMP, MORPH #### [place] [address] Calcium [Mass/Vol] 8.5 mg/dL Normal 8.4-10.[address] [facility] Comment on above: Performed By: #### G FR, MG, CBC, DIFF, CMP, MORPH #### [place] [address] Chloride [Moles/Vol] 109 mmol/L High 98-107 [facility] Comment on above: Performed By: #### G FR, MG, CBC, DIFF, CMP, MORPH #### [place] [address] CO2 [Moles/Vol] 25 mmol/L Normal 22-29 [facility] Comment on above: Performed By: #### G FR, MG, CBC, DIFF, CMP, MORPH #### [place] [address] Creatinine [Mass/Vol] 0.78 mg/dL Normal 0.55-1.02 [facility] Comment on above: Result Comment: Test ing performed on Siemens Dimension EXL analyzer using a modified kinetic Nena technique. Performed By: #### G FR, MG, CBC, DIFF, CMP, MORPH #### [place] [address] Electrolyte Balance 8.0 mEq/L Normal 4.0-15.0 [facility] Comment on above: Performed By: #### G FR, MG, CBC, DIFF, CMP, MORPH #### [address] [address] Globulin 2.7 G/dL Normal 1.5-3.8 [facility] Comment on above: Performed By: #### G FR, MG, CBC, DIFF, CMP, MORPH #### [address] [address] Glucose [Mass/Vol] 79 mg/dL Normal 70-[address] [facility] Comment on above: Performed By: #### G FR, MG, CBC, DIFF, CMP, MORPH #### [address] [address] Potassium [Moles/Vol] 4.4 mmol/L Normal 3.5-5.1 [facility] Comment on above: Performed By: #### G FR, MG, CBC, DIFF, CMP, MORPH #### [address] [address] Sodium [Moles/Vol] 142 mmol/L Normal 136-[address] [facility] Comment on above: Performed By: #### G FR, MG, CBC, DIFF, CMP, MORPH #### [address] [address] Total Protein 6.0 G/dL Low 6.4-8.2 [facility] Comment on above: Performed By: #### G FR, MG, CBC, DIFF, CMP, MORPH #### [address] [address] Urea nitrogen [Mass/Vol] 12 mg/dL Normal 7-18 [facility] Comment on above: Performed By: #### G FR, MG, CBC, DIFF, CMP, MORPH #### [address] [address] MGon 02-07-2025 Magnesium [Mass/Vol] 2.2 mg/dL Normal 1.8-2.4 [facility] Comment on above: Performed By: #### G FR, MG, CBC, DIFF, CMP, MORPH #### [address] [place], [place] [address] MRI MRCPon 02-07-2025 MRI MRCP ORIGINAL EXAMINATION: MRC02/07/2025 11:29 am TECHNIQUE: MRCP was performed without the administration of intravenous contrast. COMPARISON: CT abdomen/pelvis 02/06/2025 HISTORY: ORDERING SYSTEM PROVIDED HISTORY: Reason for Exam: RUQ pain . FINDINGS: The liver is normal and there is no intrahepatic biliary dilatation. The common bile duct is normal in caliber. Pancreatic parenchyma and pancreatic duct are unremarkable as well. No additional contributory upper abdominal finding is evident. IMPRESSION: No significant abnormality. I have personally reviewed the images of this examination and agree with the resident's findings and interpretation. Interpreted by: Henok Pride MD Preliminary Report By: Henok Avendano Electronically signed By Henok Pride MD Dictated Date: 02/07/2025 1:18:22 PM Prelim Date: 02/07/2025 1:37:50 PM Sign Date: 02/07/2025 1:37:50 PM Ordering Provider: VANESSA Swenson [facility] STGIPCRon 02-07-2025 Adenovirus F 40/41 Not detected Normal Not Detected [facility] Comment on above: Performed By: #### S TGIPCR #### [place] [address] Astrovirus Not detected Normal Not Detected [facility] Comment on above: Performed By: #### S TGIPCR #### [place] [id number] Campy (jejuni/coli/ups) Not detected Normal Not Detected [facility] Comment on above: Performed By: #### S TGIPCR #### [place] [address] Cryptosporidium Not detected Normal Not Detected [facility] Comment on above: Performed By: #### S TGIPCR #### [place] [id number] Cyclospora Not detected Normal Not Detected [facility] Comment on above: Performed By: #### S TGIPCR #### [place] [id number] E. coli (ETEC) Not detected Normal Not Detected [facility] Comment on above: Performed By: #### S TGIPCR #### [facility] [address] [place] [address] E. coli O157 Not detected Normal Not Detected [facility] Comment on above: Performed By: #### S TGIPCR #### [facility] [address] [place], [place] [id number] Entamoeba histolytica Not detected Normal Not Detected [facility] Comment on above: Performed By: #### S TGIPCR #### [facility] [address] [place] [address] Enteroaggregative E. coli (EAEC) Not detected Normal Not Detected [facility] Comment on above: Performed By: #### S TGIPCR #### [facility] [address] [place] [address] Enteropathogenic E. coli (EPEC) Not detected Normal Not Detected [facility] Comment on above: Performed By: #### S TGIPCR #### [facility] [address] [place] [address] Giardia lamblia Not detected Normal Not Detected [facility] Comment on above: Performed By: #### S TGIPCR #### [place] [address] Norovirus GI/GII Not detected Normal Not Detected [facility] Comment on above: Performed By: #### S TGIPCR #### [facility] [address] [place], [place] [id number] Plesiomonas shigelloides Not detected Normal Not Detected [facility] Comment on above: Performed By: #### S TGIPCR #### [facility] [address] [place] [address] Rotavirus A Not detected Normal Not Detected [facility] Comment on above: Performed By: #### S TGIPCR #### [facility] [address] [place] [address] Salmonella species, stool Not detected Normal Not Detected [facility] Comment on above: Performed By: #### S TGIPCR #### [facility] [address] [place] [address] Sapovirus I,II,IV,V Not detected Normal Not Detected [facility] Comment on above: Performed By: #### S TGIPCR #### [place] [address] Shig Tox E. coli (STEC) Not detected Normal Not Detected [facility] Comment on above: Performed By: #### S TGIPCR #### [place] [address] Shigella/Enteroinvasiv e E. coli (EIEC) Not detected Normal Not Detected [facility] Comment on above: Performed By: #### S TGIPCR #### [place] [address] Stool GI Comment See Comment Normal [facility] Comment on above: Result Comment: Viru s, bacteria, and parasite nucleic acid may persist in vivo independently of organism viability. Negative Film Array GI panel results in the setting of clinical illness compatible with gastroenteritis may be due to infection by pathogens that are not detected by this test. False negatives may occur due to genetic variability in the region targeted by the primers. Performed By: #### S TGIPCR #### [place] [address] Vibrio cholerae Not detected Normal Not Detected [facility] Comment on above: Performed By: #### S TGIPCR #### [place] [address] Vibrio par/vul/chol Not detected Normal Not Detected [facility] Comment on above: Performed By: #### S TGIPCR #### [place] [address] Yersinia enterocolitica Not detected Normal Not Detected [facility] Comment on above: Performed By: #### S TGIPCR #### [place] [address] .Auto Diffon 02-06-2025 Basophil, Absolute 0.1 10 3/mcL Normal 0.0-0.2 [facility] Comment on above: Performed By: #### G FR, MG, CBC, DIFF, CMP, MORPH #### [address] [address] Basophils/100 WBC (Bld) 0.6 % Normal 0.0-2.5 [facility] Comment on above: Performed By: #### G FR, MG, CBC, DIFF, CMP, MORPH #### [address] [address] Eosinophil, Absolute 3.8 10 3/mcL High 0.0-0.7 [facility] Comment on above: Performed By: #### G FR, MG, CBC, DIFF, CMP, MORPH #### [address] [address] Eosinophils/100 WBC (Bld) 24.9 % High 0.0-7.0 [facility] Comment on above: Performed By: #### G FR, MG, CBC, DIFF, CMP, MORPH #### [address] [address] Lymphocyte, Absolute 3.4 10 3/mcL Normal 0.9-4.3 [facility] Comment on above: Performed By: #### G FR, MG, CBC, DIFF, CMP, MORPH #### [address] [address] Lymphocytes/100 WBC (Bld) 22.5 % Normal 20.0-40.0 [facility] Comment on above: Performed By: #### G FR, MG, CBC, DIFF, CMP, MORPH #### [address] [address] Monocyte, Absolute 0.8 10 3/mcL Normal 0.1-1.4 [facility] Comment on above: Performed By: #### G FR, MG, CBC, DIFF, CMP, MORPH #### [address] [address] Monocytes/100 WBC (Bld) 5.3 % Normal 2.0-13.0 [facility] Comment on above: Performed By: #### G FR, MG, CBC, DIFF, CMP, MORPH #### [address] [address] Neutrophils/100 WBC (Bld) 46.7 % Low 50.0-75.0 [facility] Comment on above: Performed By: #### G FR, MG, CBC, DIFF, CMP, MORPH #### [address] [address] .GFRon 02-06-2025 Estimated Glomerular Filtration Rate 93 ml/min/1.73sqm Normal [facility] Comment on above: Result Comment: Stages of Chronic Kidney Disease (CKD) Stage Description eGFR(ml/min/1.73 sq.m.) CKD 1 Normal kidney function or >=90 normal kindney function with possible kidney damage (ex. Proteinuria) CKD 2 Kidney damage with mild loss 60-89 of kidney function CKD 3a Mild to moderate loss of kidney 45-59 function CKD 3b Moderate to severe loss of 30-44 of kindey function CKD 4 Severe loss of kidney function 15-29 CKD 5 Kidney failure <15 Note: (go live 2024) the eGFR calculation was updated to the 2020 CKD-EPI creatinine equation without a race factor to calculate the eGFR results. Performed By: #### G FR, MG, CBC, DIFF, CMP, MORPH #### [address] [address] .MDWon 02-06-2025 Monocyte Distribution Width 19.12 Normal 0.00-20.00 [facility] Comment on above: Result Comment: For ED adult patients suspected of sepsis, MDW<=20.0 does not rule out sepsis or risk of sepsis Performed By: #### G FR, MG, CBC, DIFF, CMP, MORPH #### [address] [address] .NEUABSon 02-06-2025 Neutrophil, Absolute 7.1 10 3/mcL Normal 2.3-8.1 [facility] Comment on above: Performed By: #### G FR, MG, CBC, DIFF, CMP, MORPH #### [address] [address] .Urinalysis Microscopic (AO) on 02-06-2025 UA Amorphus 1+ /hpf Normal [facility] Comment on above: Performed By: #### G FR, MG, CBC, DIFF, CMP, MORPH #### [address] [address] UA CA Ox Crystal Trace Normal [facility] Comment on above: Performed By: #### G FR, MG, CBC, DIFF, CMP, MORPH #### [address] [address] UA RBC 0-5 Abnormal None Seen [facility] Comment on above: Performed By: #### G FR, MG, CBC, DIFF, CMP, MORPH #### [address] [address] UA Squam Epithelial 0-5 Abnormal None Seen [facility] Comment on above: Performed By: #### G FR, MG, CBC, DIFF, CMP, MORPH #### [address] [address] UA WBC 0-5 Abnormal None Seen [facility] Comment on above: Performed By: #### G FR, MG, CBC, DIFF, CMP, MORPH #### [address] [address] A1Con 02-06-2025 Glucose [Mass/Vol] 100 mg/dL Normal [facility] Comment on above: Result Comment: Leatha mated Average Glucose calculated by equation ((28.7xA1C)-46.7) Estimated average glucose (eAG) is a calculated value from Hemoglobin A1C and is market survey representative of the average blood glucose level in the last 2-3 month period. Normal range: less than 114 mg/dL Performed By: #### A 1C, LIPID #### [address] [address] HbA1c (Bld) [Mass fraction] 5.1 % Normal 4.3-6.4 [facility] Comment on above: Performed By: #### A 1C, LIPID #### [address] [address] AMYon 02-06-2025 Amylase [Catalytic activity/Vol] 189 U/L High 25-115 [facility] Comment on above: Performed By: #### G FR, MG, CBC, DIFF, CMP, MORPH #### [address] [address] CBCon 02-06-2025 Erythrocyte distribution width (RBC) [Ratio] 13.1 % Normal 11.5-15.5 [facility] Comment on above: Performed By: #### G FR, MG, CBC, DIFF, CMP, MORPH #### [place] [address] Hematocrit (Bld) [Volume fraction] 41.6 % Normal 34.0-46.0 [facility] Comment on above: Performed By: #### G FR, MG, CBC, DIFF, CMP, MORPH #### [place] [address] Hgb 14.3 G/dL Normal 12.0-16.0 [facility] Comment on above: Performed By: #### G FR, MG, CBC, DIFF, CMP, MORPH #### [place] [address] MCH (RBC) [Entitic mass] 30.3 pg Normal 27.0-33.0 [facility] Comment on above: Performed By: #### G FR, MG, CBC, DIFF, CMP, MORPH #### [place] [address] MCHC 34.4 G/dL Normal 32.0-36.0 [facility] Comment on above: Performed By: #### G FR, MG, CBC, DIFF, CMP, MORPH #### [place] [address] MCV (RBC) [Entitic vol] 87.9 fL Normal 80.0-99.0 [facility] Comment on above: Performed By: #### G FR, MG, CBC, DIFF, CMP, MORPH #### [place] [id number] Platelet 341 10 3/mcL Normal 150-450 [facility] Comment on above: Performed By: #### G FR, MG, CBC, DIFF, CMP, MORPH #### [address] [address] Platelet mean volume (Bld) [Entitic vol] 7.6 fL Normal 6.6-10.5 [facility] Comment on above: Performed By: #### G FR, MG, CBC, DIFF, CMP, MORPH #### [address] [address] RBC 4.73 10 6/mcL Normal 4.10-5.30 [facility] Comment on above: Performed By: #### G FR, MG, CBC, DIFF, CMP, MORPH #### [address] [address] WBC 15.1 10 3/mcL High 4.5-10.8 [facility] Comment on above: Performed By: #### G FR, MG, CBC, DIFF, CMP, MORPH #### [address] [address] CMPon 02-06-2025 Albumin Level 4.0 G/dL Normal 3.5-5.0 [facility] Comment on above: Performed By: #### G FR, MG, CBC, DIFF, CMP, MORPH #### [place] [id number] Albumin/Globulin [Mass ratio] 1.2 {ratio} Normal 1.1-2.5 [facility] Comment on above: Performed By: #### G FR, MG, CBC, DIFF, CMP, MORPH #### [address] [address] ALP [Catalytic activity/Vol] 82 U/L Normal 40-135 [facility] Comment on above: Performed By: #### G FR, MG, CBC, DIFF, CMP, MORPH #### [address] [address] ALT [Catalytic activity/Vol] 47 U/L Normal 14-59 [facility] Comment on above: Performed By: #### G FR, MG, CBC, DIFF, CMP, MORPH #### [address] [address] AST [Catalytic activity/Vol] 27 U/L Normal 10-40 [facility] Comment on above: Performed By: #### G FR, MG, CBC, DIFF, CMP, MORPH #### [address] [address] Bili Total 0.3 mg/dL Normal 0.2-1.0 [facility] Comment on above: Result Comment: Use of this assay is not recommended for patients undergoing treatment with eltrombopag due to the potential for falsely elevated results. Performed By: #### G FR, MG, CBC, DIFF, CMP, MORPH #### [address] [address] BUN/Creatinine Ratio 19 ratio Normal 7-27 [facility] Comment on above: Performed By: #### G FR, MG, CBC, DIFF, CMP, MORPH #### [address] [address] Calcium [Mass/Vol] 9.2 mg/dL Normal 8.4-10.[address] [facility] Comment on above: Performed By: #### G FR, MG, CBC, DIFF, CMP, MORPH #### [address] [address] Chloride [Moles/Vol] 106 mmol/L Normal 98-107 [facility] Comment on above: Performed By: #### G FR, MG, CBC, DIFF, CMP, MORPH #### [address] [address] CO2 [Moles/Vol] 30 mmol/L High 22-29 [facility] Comment on above: Performed By: #### G FR, MG, CBC, DIFF, CMP, MORPH #### [address] [address] Creatinine [Mass/Vol] 0.88 mg/dL Normal 0.55-1.02 [facility] Comment on above: Result Comment: Test ing performed on Siemens Dimension EXL analyzer using a modified kinetic Nena technique. Performed By: #### G FR, MG, CBC, DIFF, CMP, MORPH #### [address] [address] Electrolyte Balance 6.0 mEq/L Normal 4.0-15.0 [facility] Comment on above: Performed By: #### G FR, MG, CBC, DIFF, CMP, MORPH #### [address] [address] Globulin 3.3 G/dL Normal 1.5-3.8 [facility] Comment on above: Performed By: #### G FR, MG, CBC, DIFF, CMP, MORPH #### [address] [address] Glucose [Mass/Vol] 87 mg/dL Normal 70-[address] [facility] Comment on above: Performed By: #### G FR, MG, CBC, DIFF, CMP, MORPH #### [address] [address] Potassium [Moles/Vol] 4.2 mmol/L Normal 3.5-5.1 [facility] Comment on above: Performed By: #### G FR, MG, CBC, DIFF, CMP, MORPH #### [address] [address] Sodium [Moles/Vol] 142 mmol/L Normal 136-[address] [facility] Comment on above: Performed By: #### G FR, MG, CBC, DIFF, CMP, MORPH #### [address] [address] Total Protein 7.3 G/dL Normal 6.4-8.2 [facility] Comment on above: Performed By: #### G FR, MG, CBC, DIFF, CMP, MORPH #### [address] [address] Urea nitrogen [Mass/Vol] 17 mg/dL Normal 7-18 [facility] Comment on above: Performed By: #### G FR, MG, CBC, DIFF, CMP, MORPH #### [address] [address] [address] ABD/PELVIS W/ IV CONTRAST ONLYon 02-06-2025 CT ABD/PELVIS W/ IV CONTRAST ONLY ORIGINAL EXAMINATION: CT OF THE ABDOMEN AND PELVIS WITH CONTRAST02/06/2025 1:07 pm COMPARISON: CT 02/21/2024 TECHNIQUE: CT of the abdomen and pelvis was performed with the administration of intravenous contrast. Multiplanar reformatted images are provided for review. Automated exposure control, iterative reconstruction, and/or weight based adjustment of the mA/kV was utilized to reduce the radiation dose to as low as reasonably achievable. HISTORY: ORDERING SYSTEM PROVIDED HISTORY: Reason for Exam: pain, right-sided pain FINDINGS: The gallbladder is not seen presumably surgically absent. No bile duct dilatation. Portal and hepatic veins are patent. The liver, spleen, pancreas, adrenal glands, aorta and both kidneys are normal appearing. There is no hydronephrosis, ureteral dilatation or stone. No pathologic lymphadenopathy in the abdomen, pelvis or inguinal regions. No ascites or other extraluminal fluid collections. No free air. The stomach is not over distended. No dilated bowel loops. Appendix is not clearly localized but there is no obvious pericecal inflammatory change. No significant diverticulosis or diverticulitis of the colon. No obvious ventral hernia. Poorly distended urinary bladder. Uterus and adnexa are within normal limits for age. There is no acute aggressive skeletal abnormality. Included lung bases are noncontributory. IMPRESSION: Negative study. No acute findings. Interpreted by: Josi Turk MD Preliminary Report By: Josi Turk MD Electronically signed By Josi Turk MD Dictated Date: 02/06/2025 1:11:01 PM Prelim Date: 02/06/2025 1:15:02 PM Sign Date: 02/06/2025 1:15:02 PM Ordering Provider: MECHELLE MCLAUGHLIN Normal [facility] LIPon 02-06-2025 Lipase Level >375 High 16-77 [facility] Comment on above: Performed By: #### G FR, MG, CBC, DIFF, CMP, MORPH #### [facility] [address] [place], [place] [address] LIPIDon 02-06-2025 Cholesterol [Mass/Vol] 167 mg/dL Normal 0-200 [facility] Comment on above: Result Comment: Chol esterol Reference Interval: Less than 200 Desirable 200-239 Borderline high risk 240 and above High risk Performed By: #### A 1C, LIPID #### [address] [address] Cholesterol in HDL [Mass/Vol] 51 mg/dL Normal 40-60 [facility] Comment on above: Performed By: #### A 1C, LIPID #### [address] [address] Cholesterol in LDL [Mass/Vol] 91 mg/dL Normal 0-130 [facility] Comment on above: Performed By: #### A 1C, LIPID #### [address] [address] Triglyceride [Mass/Vol] 124 mg/dL Normal 0-150 [facility] Comment on above: Result Comment: Trig lyceride Reference Interval: Less than 150 Normal 150-199 Borderline high risk 200-499 High risk 500 or higher Very high risk Performed By: #### A 1C, LIPID #### [address] [address] MGon 02-06-2025 Magnesium [Mass/Vol] 1.7 mg/dL Low 1.8-2.4 [facility] Comment on above: Performed By: #### G FR, MG, CBC, DIFF, CMP, MORPH #### [address] [address] PREGUon 02-06-2025 HCG ( test) Ql (U) Negative [facility] Comment on above: Performed By: #### G FR, MG, CBC, DIFF, CMP, MORPH #### [address] [address] test (u) int Not detected Invalid Interpretation Code [facility] Comment on above: Performed By: #### G FR, MG, CBC, DIFF, CMP, MORPH #### [address] [address] UAon 02-06-2025 Color (U) Yellow Normal [facility] Comment on above: Performed By: #### G FR, MG, CBC, DIFF, CMP, MORPH #### [address] [address] Glucose (U) [Mass/Vol] Negative Normal Negative [facility] Comment on above: Performed By: #### G FR, MG, CBC, DIFF, CMP, MORPH #### [place] [address] Ketones Ql (U) Negative Normal Negative [facility] Comment on above: Performed By: #### G FR, MG, CBC, DIFF, CMP, MORPH #### [place] [address] UA Appear Clear Normal Clear [facility] Comment on above: Performed By: #### G FR, MG, CBC, DIFF, CMP, MORPH #### [place] [address] UA Blood Trace Abnormal Negative [facility] Comment on above: Performed By: #### G FR, MG, CBC, DIFF, CMP, MORPH #### [place] [address] UA Leuk Est Small Abnormal Negative [facility] Comment on above: Performed By: #### G FR, MG, CBC, DIFF, CMP, MORPH #### [place] [address] UA Nitrite Negative Normal Negative [facility] Comment on above: Performed By: #### G FR, MG, CBC, DIFF, CMP, MORPH #### [place] [address] UA pH 5.5 Normal 5.0 - 8.0 [facility] Comment on above: Performed By: #### G FR, MG, CBC, DIFF, CMP, MORPH #### [place] [address] UA Protein Negative Normal Negative [facility] Comment on above: Performed By: #### G FR, MG, CBC, DIFF, CMP, MORPH #### [place] [address] UA Spec Grav 1.025 Normal 1.015-1.025 [facility] Comment on above: Performed By: #### G FR, MG, CBC, DIFF, CMP, MORPH #### [place] [address] [place], [place] [address] UA Specimen Type Clean Catch Normal [facility] Comment on above: Performed By: #### G FR, MG, CBC, DIFF, CMP, MORPH #### [place] [address] [place], [place] [address] UA Urobilinogen 0.2 E.U./dL Normal 0.2-1.0 [facility] Comment on above: Performed By: #### G FR, MG, CBC, DIFF, CMP, MORPH #### [place] [address] [place], [place] [address] Urobilinogen (U) [Mass/Vol] Negative Normal Negative [facility] Comment on above: Performed By: #### G FR, MG, CBC, DIFF, CMP, MORPH #### [place] [id number] [place], [place] [address] [employer] Driver Office Visit Reporton 01-20-2025 [employer] Driver Office Visit Report [facility] [address], [address] [place] [address] OFFICE VISIT Date of Service: 01/20/25 MR#: [id number] Acct: [id number] Name: ALMA HARRELL Rep #: [id number] : 2000 Provider: Dr. Zakia Lemus DO Age/Sex: 24/F Location: [facility] [place] [facility] Status: Signed Intake Vital Signs 12/12/24 20:15 01/20/25 15:26 01/20/25 15:32 Height 5 ft 7 in 5 ft 7 in 5 ft 7 in Weight: 202 lb BMI 31.6 BP 122/82 H Intake Visit Reasons: visit (obstetrics) [employer] Representative Required: No Is patient in pain?: No Allergies No Known Allergies Allergy (Verified 01/20/25 15:24) Medications ???Medication ???Instructions ???Recorded ???Confirmed ???Type multivitamin no.47-iron fum 27 1 cap PO DAILY 06/04/24 01/20/25 History mg-folate no.1 1 mg-dha 300 mg capsule (PNV-DHA) : Yes PFSH Medical History History of anomaly in prior , currently OCD (obsessive compulsive disorder) PTSD (post-traumatic stress disorder) Major depression Vaginal delivery Family history of hearing loss at age younger than 7 years History of pre-term labor depression Anxiety Surgical History H/O hernia repair History of cholecystectomy History of tonsillectomy Family History Grandfather Spina bifida unconfirmed Social History (Updated 01/20/25 @ 15:25 by Anitha Polanco) adopted: No household members: spouse and children housing: house number of children: 4 current occupational status: unemployed 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 current occupational exposures/hazards: No pets and animals: Yes (Avoid litterbox) pets and animals: cat(s) and dog(s) history of recent travel: Yes ([place]) out of state: Yes out of country: No sexually active: Yes Smoking Status: Never smoker alcohol intake: never substance use type: does not use well-balanced diet: daily or most days caffeine: No (occasional) eating out: rarely or never during the past year weight has: decreased > 10 lbs what type of physical activity do you participate in: walking frequency: 3-4 times per week duration: 45-60 minutes/day charlie/yarsani: Holiness seatbelt use: always do you feel safe at home: Yes additional social history: Dagoberto- Works for [employer] 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 Date Name GA/Weeks Outcome Route Bth Weight Infant Gen Labor Lgth Anesthesia Del Locatn Provider FOB 05/12/18 adaline 32 live - 4lb 7 oz Female started at 20 we eks none [facility] 09/08/19 [place] 34 live - 6.10 Female none [facility] Dr. Trav Richardson 12/20/22 [place] 35 live - 6#6oz Female epidural [facility] mitch Richardson 12/05/24 [place] 36 live - 7lbs 2oz Male epidural [facility] SALLY Moserer Delivery Date: 09/08/19 Last Updated by: Delia Street transferred to [facility] Delivery Date: 12/05/24 Last Updated by: Mariel Cedillo, RN See problem list for complications, and ial 36 Depression Screen PHQ-2/9 PHQ-2 Over the last 2 weeks, how often have you been bothered by any of the following problems? 1. Little interest or pleasure in doing things: more than half the days 2. Feeling down, depressed, or hopeless: several days Total score: 3 If score is 2 or greater, continue 9. Thoughts that you would be better off or of hurting yourself in some way: not at all Source: Developed by Drs. Rosas Yuen, Susanne Bianchi, Denzel Bright and colleagues, with an educational norbret from [employer]. Post HPI Routine Follow-Up: Details: ALMA HARRELL is a 24 year old who presents for her post visit. Baby is dealing with intussusception. She is doing better with depression and is waiting on zurzuvae to be delivered. denies si/hi and did not want to continue with phq-9 questions. Feeding: Breast Menses resumed: No [place] since delivery: No Emotional Support: Yes Last Pap:: 06/07/2024 Control Method: condoms ROS Const Reports system reviewed and no additional complaints, except as documented GI Reports system reviewed and no additional complaints, except as documented, Denies bloating, Denies constipation, Denies nausea and Denies vomiting Reports system reviewed and no additional complaints, except as d (more content not included)... Normal [facility] .Auto Diffon 12-30-2024 Basophil, Absolute 0.1 10 3/mcL Normal 0.0-0.2 [facility] Comment on above: Performed By: #### G FR, MG, CBC, DIFF, CMP, MORPH #### [place] [id number] [place], [place] [address] Basophils/100 WBC (Bld) 0.6 % Normal 0.0-2.5 [facility] Comment on above: Performed By: #### G FR, MG, CBC, DIFF, CMP, MORPH #### [address] [address] Eosinophil, Absolute 1.9 10 3/mcL High 0.0-0.7 [facility] Comment on above: Performed By: #### G FR, MG, CBC, DIFF, CMP, MORPH #### [address] [address] Eosinophils/100 WBC (Bld) 16.6 % High 0.0-7.0 [facility] Comment on above: Performed By: #### G FR, MG, CBC, DIFF, CMP, MORPH #### [address] [address] Lymphocyte, Absolute 3.7 10 3/mcL Normal 0.9-4.3 [facility] Comment on above: Performed By: #### G FR, MG, CBC, DIFF, CMP, MORPH #### [address] [address] Lymphocytes/100 WBC (Bld) 31.6 % Normal 20.0-40.0 [facility] Comment on above: Performed By: #### G FR, MG, CBC, DIFF, CMP, MORPH #### [address] [address] Monocyte, Absolute 0.7 10 3/mcL Normal 0.1-1.4 [facility] Comment on above: Performed By: #### G FR, MG, CBC, DIFF, CMP, MORPH #### [address] [address] Monocytes/100 WBC (Bld) 5.6 % Normal 2.0-13.0 [facility] Comment on above: Performed By: #### G FR, MG, CBC, DIFF, CMP, MORPH #### [address] [address] Neutrophils/100 WBC (Bld) 45.6 % Low 50.0-75.0 [facility] Comment on above: Performed By: #### G FR, MG, CBC, DIFF, CMP, MORPH #### [place] [address] .NEUABSon 12-30-2024 Neutrophil, Absolute 5.3 10 3/mcL Normal 2.3-8.1 [facility] Comment on above: Performed By: #### G FR, MG, CBC, DIFF, CMP, MORPH #### [place] [address] CBCon 12-30-2024 Erythrocyte distribution width (RBC) [Ratio] 13.1 % Normal 11.5-15.5 [facility] Comment on above: Performed By: #### A BRYSON, CBC, ADIFF, PRO #### [place] [address] Hematocrit (Bld) [Volume fraction] 41.9 % Normal 34.0-46.0 [facility] Comment on above: Performed By: #### A BRYSON, CBC, ADIFF, PRO #### [place] [address] Hgb 14.2 G/dL Normal 12.0-16.0 [facility] Comment on above: Performed By: #### A BRYSON, CBC, ADIFF, PRO #### [place] [address] MCH (RBC) [Entitic mass] 30.5 pg Normal 27.0-33.0 [facility] Comment on above: Performed By: #### A BRYSON, CBC, ADIFF, PRO #### [place] [address] MCHC 34.0 G/dL Normal 32.0-36.0 [facility] Comment on above: Performed By: #### A BRYSON, CBC, ADIFF, PRO #### [place] [address] MCV (RBC) [Entitic vol] 89.8 fL Normal 80.0-99.0 [facility] Comment on above: Performed By: #### A BRYSON, CBC, ADIFF, PRO #### [place] [id number] [place], [place] [address] Platelet 465 10 3/mcL High 150-450 [facility] Comment on above: Performed By: #### A BRYSON, CBC, ADIFF, PRO #### [place] [id number] [place], [place] [address] Platelet mean volume (Bld) [Entitic vol] 7.0 fL Normal 6.6-10.5 [facility] Comment on above: Performed By: #### A BRYSON, CBC, ADIFF, PRO #### [address] [address] RBC 4.66 10 6/mcL Normal 4.10-5.30 [facility] Comment on above: Performed By: #### A BRYSON, CBC, ADIFF, PRO #### [address] [address] WBC 11.7 10 3/mcL High 4.5-10.8 [facility] Comment on above: Performed By: #### A BRYSON, CBC, ADIFF, PRO #### [address] [address] LABORATORYOrdered By: SYSTEM SYSTEM on 12-30-2024 Basophils (Bld) [#/Vol] 0.1 103/mcL Normal 0.0 - 0.2 10^3/mcL AO Workflow SS Basophils/100 WBC (Bld) 0.6 % Normal 0.0 - 2.5 % AO Workflow SS Eosinophil, Absolute 1.9 103/mcL High 0.0 - 0 .7 10^3/mcL AO Workflow SS Eosinophils/100 WBC (Bld) 16.6 % High 0.0 - 7.0 % AO Workflow SS Erythrocyte distribution width (RBC) [Ratio] 13.1 % Normal 11.5 - 15.5 % AO Workflow SS Hematocrit (Bld) [Volume fraction] 41.9 % Normal 34.0 - 46.0 % AO Workflow SS Hemoglobin (Bld) [Mass/Vol] 14.2 G/dL Normal 12.0 - 16.0 G/dL AO Workflow SS INR Coag (PPP) [Relative time] 0.9 {INR} Invalid Interpretation Code AO [facility] Comment on above: Interpretive Data: Manuel peterson [employer] (CHEST, 1991, [id number]) recommended therapeutic range for oral anticoagulant therapy is: LOW RISK: Prophylaxis of venous thrombosis INR: 2.0-3.0 Treatment of pulmonary embolism 2.0-3.0 Prevention of systemic embolism 2.0-3.0 HIGH RISK: Mechanical prosthetic valves 2.5-3.5 Lymphocytes (Bld) [#/Vol] 3.7 103/mcL Normal 0.9 - 4.3 10^3/mcL AO Workflow SS Lymphocytes/100 WBC (Bld) 31.6 % Normal 20.0 - 40.0 % AO Workflow SS MCH (RBC) [Entitic mass] 30.5 pg Normal 27.0 - 33.0 pg AO Workflow SS MCHC 34.0 G/dL Normal 32.0 - 36.0 G/dL AO Workflow SS MCV (RBC) [Entitic vol] 89.8 fL Normal 80.0 - 99.0 fL AO Workflow SS Monocytes (Bld) [#/Vol] 0.7 103/mcL Normal 0.1 - 1.4 10^3/mcL AO Workflow SS Monocytes/100 WBC (Bld) 5.6 % Normal 2.0 - 13.0 % AO Workflow SS Neutrophils (Bld) [#/Vol] 5.3 103/mcL Normal 2.3 - 8.1 10^3/mcL AO Workflow SS Neutrophils/100 WBC (Bld) 45.6 % Low 50.0 - 75.0 % AO Workflow SS Platelet mean volume (Bld) [Entitic vol] 7.0 fL Normal 6.6 - 10.5 fL AO Workflow SS Platelets (Bld) [#/Vol] 465 103/mcL High 150 - 450 10^3/mcL AO Workflow SS PT Coag (PPP) [Time] 10.6 s Normal 9.0 - 1 4.4 seconds AO [facility] SS RBC (Bld) [#/Vol] 4.66 106/mcL Normal 4.10 - 5.3 0 10^6/mcL AO Workflow SS WBC (Bld) [#/Vol] 11.7 103/mcL High 4.5 - 10.8 10^3/mcL AO Workflow SS PROon 12-30-2024 PT Coag (PPP) [Time] 10.6 s Normal 9.0-14.4 [facility] Comment on above: Performed By: #### G FR, MG, CBC, DIFF, CMP, MORPH #### [facility] [address], [place] [address] PT International Ratio 0.9 Normal [facility] Comment on above: Result Comment: The [employer] (CHEST, 1992, 102:312S-25S) recommended therapeutic range for oral anticoagulant therapy is: LOW RISK: Prophylaxis of venous thrombosis INR: 2.0-3.0 Treatment of pulmonary embolism 2.0-3.0 Prevention of systemic embolism 2.0-3.0 HIGH RISK: Mechanical prosthetic valves 2.5-3.5 Performed By: #### G FR, MG, CBC, DIFF, CMP, MORPH #### [place] [id number] [place], [place] [address] [facility] [address] [place] [id number] OFFICE VISIT Date of Service: 12/12/24 MR#: [id number] Acct: [id number] Name: ALMA HARRELL Rep #: [id number] : 2000 Provider: Susan Mckoy NP Age/Sex: 24/F [place] [facility] [place]: Signed Intake Vital Signs 12/05/24 07:55 12/12/24 15:58 Height 5 ft 7 in 5 ft 7 in Intake Visit Reasons: feeding questions, nipple pain Chief Complaint: feeding questions, nipple pain Accompanied by: Mother Allergies No Known Allergies Allergy (Verified 01/20/25 15:24) : Yes PFSH PFSH Medical History History of anomaly in prior , currently OCD (obsessive compulsive disorder) PTSD (post-traumatic stress disorder) Major depression Vaginal delivery Family history of hearing loss at age younger than 7 years History of pre-term labor depression Anxiety Surgical History H/O hernia repair History of cholecystectomy History of tonsillectomy Family History Grandfather Spina bifida unconfirmed Social History (Updated 01/20/25 @ 15:25 by Anitha Polanco) adopted: No household members: spouse and children housing: house number of children: 4 current occupational status: unemployed 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 current occupational exposures/hazards: No pets and animals: Yes (Avoid litterbox) pets and animals: cat(s) and dog(s) history of recent travel: Yes ([place]) out of state: Yes out of country: No sexually active: Yes Smoking Status: Never smoker alcohol intake: never substance use type: does not use well-balanced diet: daily or most days caffeine: No (occasional) eating out: rarely or never during the past year weight has: decreased > 10 lbs what type of physical activity do you participate in: walking frequency: 3-4 times per week duration: 45-60 minutes/day charlie/yarsani: Holiness seatbelt use: always do you feel safe at home: Yes additional social history: Dagoberto- Works for [employer] 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 Date Name GA/Weeks Outcome Route Bth Weight Gen Labor Lgth Anesthesia Del Locatn Provider FOB 05/12/18 adaline 32 live - 4lb 7 oz Female started at 18 we eks none [facility] 09/08/19 [place] 34 live - 6.10 Female none [facility] Dr. Trav Richardson 12/20/22 [place] 35 live - 6#6oz Female epidural [facility] Jh Richardson 12/05/24 Any 36 live - 7lbs 2oz Male epidural [facility] Dagoberto Delivery Date: 09/08/19 Last Updated by: Delia Street transferred to [facility] Delivery Date: 12/05/24 Last Updated by: Mariel Cedillo, RN See problem list for complications, and sm ial 36 HPI HPI HPI: ALMA HARRELL, is a 24 F who presents to the office today for feeding questions, nipple pain. History provided by mother. ROS ROS Const Constitutional: Denies fever(s) or lethargy : Denies nipple discharge Skin Skin/Breast: Denies breast pain (feeling more full, milk in), breast skin changes or nipple discharge Details: concerns today with nipple pain and feeding plan Exam Maternal Assessment Breast Assessment Bilateral Breasts: Full Exam Const General: comfortable and no acute distress Orientation: alert and oriented x3 Chest Breast inspection: normal inspection of the breasts Breast palpation: normal palpation of the breasts Other: bilateral nipples reddened Resp Effort Inspection: normal respiratory effort Skin General: no rashes or lesions noted Psych Appearance: grossly normal Mental Status: mental status grossly normal Affect: normal affect Assessment and Plan Assessment and Plan (1) Care and examination of lactating mother: Plan: Educated on feeding on demand, offering both sides with each feed, haakaa use, pumping, milk supply, milk storage and milk regulation. Follow up with PRN. Medications: Discontinued zuranolone administer with a high fat meal Discontinued Reason: By Stop Date 50 mg (2 x 25 mg) PO QDAY 14 days 28 caps 0RF Plan Details Goals Barriers: Goals Decrease pain Decrease inflammation Improve ROM Barriers Lifting/carrying baby carrier Coding Level of Care Code 58593 PRVT COUNSELING INDIVID Diagnoses Care and examination (more content not included)... Normal [facility] CBC W/Diff, Automatedon - Absolute Lymph 3.35 X10 3/uL Normal 0.83-4.51 [facility] Comment on above: Performed By: #### L 100.0100 #### [facility] [address] [place], [address] Absolute Neut 8.2 X10 3/uL High 2.0-7.7 [facility] Comment on above: Performed By: #### L 100.0100 #### [facility] [address] [facility] [place], [address] Basophils/100 WBC (Bld) 0.5 % Normal 0-1 [facility] Comment on above: Performed By: #### L 100.0100 #### [facility] [address] [place], [address] Eosinophils/100 WBC (Bld) 4.0 % Normal 0-5 [facility] Comment on above: Performed By: #### L 100.0100 #### [facility] [address] [place], [address] Erythrocyte distribution width (RBC) [Ratio] 12.7 % Normal 11.6-14.6 [facility] Comment on above: Performed By: #### L 100.0100 #### [facility] [address] [place], [address] Hematocrit (Bld) [Volume fraction] 34.0 % Low 37-47 [facility] Comment on above: Performed By: #### L 100.0100 #### [facility] [address] [facility] [place], [address] Hemoglobin (Bld) [Mass/Vol] 11.9 g/dL Low 12.0-15.0 [facility] Comment on above: Performed By: #### L 100.0100 #### [facility] [address] [facility] [place], [address] IG% 0.200 Normal 0.0-0.9 [facility] Comment on above: Result Comment: IG% - Immature Granulocytes (promyelocytes, myelocytes and metamyelocytes) > 1% indicates that a LEFT SHIFT is Present. Performed By: #### L 100.0100 #### [facility] [address], [address] Lymphocytes/100 WBC (Bld) 25.4 % Normal 19-41 [facility] Comment on above: Performed By: #### L 100.0100 #### [facility] [address] [place], [address] MCH (RBC) [Entitic mass] 31.4 pg Normal 27.0-32.0 [facility] Comment on above: Performed By: #### L 100.0100 #### [facility] [address] [place], [address] MCHC (RBC) [Mass/Vol] 35.0 g/dL Normal 32-36 [facility] Comment on above: Performed By: #### L 100.0100 #### [facility] [address] [place], [address] MCV (RBC) [Entitic vol] 89.7 fL Normal 81-99 [facility] Comment on above: Performed By: #### L 100.0100 #### [facility] [address] [place], [address] Monocytes/100 WBC (Bld) 7.7 % Normal 0-10 [facility] Comment on above: Performed By: #### L 100.0100 #### [facility] [place], [address] Neutrophils/100 WBC (Bld) 62.2 % Normal 47-70 [facility] Comment on above: Performed By: #### L 100.0100 #### [facility] [address] [place], [address] Nucleated RBC (Bld) [#/Vol] 0 10*3/uL Normal 0-5 [facility] Comment on above: Performed By: #### L 100.0100 #### [facility] [address] [place], [address] Platelet mean volume (Bld) [Entitic vol] 10.0 fL Normal 6.2-12.0 [facility] Comment on above: Performed By: #### L 100.0100 #### [facility] [address] [place], [address] Platelets (Bld) [#/Vol] 338 10*3/uL Normal 150-450 [facility] Comment on above: Performed By: #### L 100.0100 #### [facility] [address] [place], [address] RBC (Bld) [#/Vol] 3.79 10*6/uL Low 4.2-5.4 [facility] Comment on above: Performed By: #### L 100.0100 #### [facility] [address] [place], [address] RDW SD 41.1 fl Normal 35.1-43.9 [facility] Comment on above: Performed By: #### L 100.0100 #### [facility] [address] [place], [address] WBC (Bld) [#/Vol] 13.2 10*3/uL High 4.4-11.0 [facility] Comment on above: Performed By: #### L 100.0100 #### [facility] [address] [place], [address] CBC W/Diff, Automatedon 11-24-2024 Absolute Lymph 2.46 X10 3/uL Normal 0.83-4.51 [facility] Comment on above: Performed By: #### L 100.0100, BTS ####[facility] [address] [place], [address] Absolute Neut 7.4 X10 3/uL Normal 2.0-7.7 [facility] Comment on above: Performed By: #### L 100.0100, BTS ####[facility] [address] [place], [address] Basophils/100 WBC (Bld) 0.4 % Normal 0-1 [facility] Comment on above: Performed By: #### L 100.0100, BTS ####[facility] [address] [place], [address] Eosinophils/100 WBC (Bld) 1.5 % Normal 0-5 [facility] Comment on above: Performed By: #### L 100.0100, BTS ####[facility] [address] [place], [address] Erythrocyte distribution width (RBC) [Ratio] 12.3 % Normal 11.6-14.6 [facility] Comment on above: Performed By: #### L 100.0100, BTS ####[facility] [address] [place], [address] Hematocrit (Bld) [Volume fraction] 35.9 % Low 37-47 [facility] Comment on above: Performed By: #### L 100.0100, BTS ####[facility] [address] [place], [address] Hemoglobin (Bld) [Mass/Vol] 12.7 g/dL Normal 12.0-15.0 [facility] Comment on above: Performed By: #### L 100.0100, BTS ####[facility] [address] [place], [address] IG% 0.400 Normal 0.0-0.9 [facility] Comment on above: Result Comment: IG% - Immature Granulocytes (promyelocytes, myelocytes and metamyelocytes) > 1% indicates that a LEFT SHIFT is Present. Performed By: #### L 100.0100, BTS ####[facility] [address] [place], [address] Lymphocytes/100 WBC (Bld) 23.0 % Normal 19-41 [facility] Comment on above: Performed By: #### L 100.0100, BTS ####[facility] [address] [place], [address] MCH (RBC) [Entitic mass] 31.4 pg Normal 27.0-32.0 [facility] Comment on above: Performed By: #### L 100.0100, BTS ####[facility] [address] [place], [address] MCHC (RBC) [Mass/Vol] 35.4 g/dL Normal 32-36 [facility] Comment on above: Performed By: #### L 100.0100, BTS ####[facility] [address] [place], [address] MCV (RBC) [Entitic vol] 88.6 fL Normal 81-99 [facility] Comment on above: Performed By: #### L 100.0100, BTS ####[facility] [address] [place], [address] Monocytes/100 WBC (Bld) 5.9 % Normal 0-10 [facility] Comment on above: Performed By: #### L 100.0100, BTS ####[facility] [address] [place], [address] Neutrophils/100 WBC (Bld) 68.8 % Normal 47-70 [facility] Comment on above: Performed By: #### L 100.0100, BTS ####[facility] [address] [place], [address] Nucleated RBC (Bld) [#/Vol] 0 10*3/uL Normal 0-5 [facility] Comment on above: Performed By: #### L 100.0100, BTS ####[facility] [address] [place], [address] Platelet mean volume (Bld) [Entitic vol] 10.1 fL Normal 6.2-12.0 [facility] Comment on above: Performed By: #### L 100.0100, BTS ####[facility] [address] [place], [address] Platelets (Bld) [#/Vol] 320 10*3/uL Normal 150-450 [facility] Comment on above: Performed By: #### L 100.0100, BTS ####[facility] [address] [place], [address] RBC (Bld) [#/Vol] 4.05 10*6/uL Low 4.2-5.4 [facility] Comment on above: Performed By: #### L 100.0100, BTS ####[facility] [address] [place], [address] RDW SD 39.5 fl Normal 35.1-43.9 [facility] Comment on above: Performed By: #### L 100.0100, BTS ####[facility] [address] [place], [address] WBC (Bld) [#/Vol] 10.7 10*3/uL Normal 4.4-11.0 [facility] Comment on above: Performed By: #### L 100.0100, BTS ####[facility] [address] [place], [address] Discharge Instructionon 11-24 Discharge Instruction [facility] Medical Records Department [address] [place] [address] Instructions for Home/Discharge Instructions 12/05/24 1058 MR#: [id number] Acct: [id number] Name: ALMA HARRELL Rep #: [id number] : 2000 24 From: Rosalba Edwards MD PCP: TERRI Elmore Status:ADM IN Discharge Instructions Diet Discharge Diet: No restrictions DC O2, CPAP, BIPAP needs Home O2 Discharge instructions: No Dressing / Incision Discharge Activity: Return to Normal Activity, May Not Drive (while taking narcotic pain medications.) and May Shower May resume sexual activity in: 4-6 weeks Dressing / Incision Call your doctor if your incision/area has: Continuous Slow Oozing, Sudden Increased Bleeding, Increased Pain/ Swelling, Increased Redness and Foul Smelling Discharge Follow Up Care Please Follow Up With: Rosalba Edwards MD When: Call [phone] to make an appointment with your doctor in 6 weeks. If you had elevated blood pressure or 4th degree laceration, you will need to be seen in 2 weeks. Test Results: Test results from this visit will be discussed in further detail at your follow-up appointment, if applicable. Discharge Plan Admission Admit Date/Time: 12/05/24 07:50 Attending Provider: Rosalba Edwrads Primary Care Provider: Dai Painting NP Discharge Orders/Prescriptions Prescriptions: No Action PNV-DHA 27 mg iron-1 mg -300 mg capsule 1 cap PO DAILY famotidine [Pepcid] 20 mg tablet 20 mg PO DAILY Qty: 30 6RF buspirone 15 mg tablet 15 mg PO TID PRN (Reason: anxiety) Qty: 90 2RF progesterone micronized [Prometrium] 200 mg capsule 200 mg vaginal QHS 30 Days Qty: 30 3RF sertraline [Zoloft] 100 mg tablet 100 mg PO QDAY Qty: 30 12RF aspirin 81 mg capsule 81 mg PO DAILY docusate sodium [Colace] 100 mg capsule 100 mg PO BID ondansetron 4 mg tablet,disintegrating 4 mg PO Q4H PRN (Reason: nausea and vomiting) Qty: 60 2RF Referrals / Follow Up: Dai Painting NP, FILM WAXER-C [Primary Care Provider] - Disposition Disposition (needs filled in before D/C Order can be placed): Home, Self Care 12/05/24 1100 Rosalba Edwards MD CC: FILM WAXER-C Dai Painting Signed Normal [facility] H AND P Exam - OB/GYNon 11-24 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 [facility] Medical Records Department [address] [place] [address] H P 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 - 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 12/05/24 0839 MR#: [id number] Acct: [id number] Name: ALMA HARRELL Rep #: [id number] : 2000 24 From: Rosalba Edwards MD PCP: THAO ElmoreC Status:ADM IN Location: [id number] HPI - General General Date of Admission: 12/05/24 HPI Narrative ALMA HARRELL, is a 24 F who presents IAL 5-6 cm dilated regular ctx h/o PTB no vb lof good fm Maternal Data Information ELIJAH Calculator Estimated Delivery Date Method Current WG Current Estimate 01/02/25 LMP (Certain) 36w 0d PFSH PFSH Medical History OCD (obsessive compulsive disorder) PTSD (post-traumatic stress disorder) Major depression Vaginal delivery Family history of hearing loss at age younger than 7 years History of pre-term labor depression Anxiety Home Medications ???Medication ???Instructions ???Recorded ???Last Taken ???Type ondansetron 4 mg disintegrating 4 mg PO Q4H PRN nausea and 05/19/24 12/02/24 17:00 Rx tablet vomiting #60 tabs multivitamin no.47-iron fum 27 1 cap PO DAILY 06/04/24 12/03/24 07:00 History mg-folate no.1 1 mg-dha 300 mg capsule (PNV-DHA) docusate sodium 100 mg capsule 100 mg PO BID 06/26/24 12/03/24 07:00 History (Colace) famotidine 20 mg tablet (Pepcid) 20 mg PO DAILY #30 tabs 07/06/24 12/02/24 20:00 Rx aspirin 81 mg capsule 81 mg PO DAILY 09/14/24 12/02/24 20:00 History buspirone 15 mg tablet 15 mg PO TID PRN anxiety #90 tabs 10/14/24 12/02/24 20:00 Rx progesterone micronized 200 mg 200 mg vaginal QHS 30 days #30 caps 10/28/24 12/02/24 20:00 Rx capsule (Prometrium) sertraline 100 mg tablet (Zoloft) 100 mg PO QDAY #30 tabs 10/28/24 12/02/24 20:00 Rx Allergy/AdvReac Type Severity Reaction Status Date / Time No Known Allergies Allergy Verified 12/03/24 17:44 Family History Grandfather Spina bifida unconfirmed Surgical History H/O hernia repair History of cholecystectomy History of tonsillectomy Social History adopted: No household members: spouse and children housing: house number of children: 3 current occupational status: unemployed 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 current occupational exposures/hazards: No pets and animals: Yes (Avoid litterbox) pets and animals: cat(s) and dog(s) history of recent travel: Yes ([place]) out of state: Yes out of country: No sexually active: Yes Smoking Status: Never smoker alcohol intake: never substance use type: does not use well-balanced diet: daily or most days caffeine: No (occasional) eating out: rarely or never during the past year weight has: decreased > 10 lbs what type of physical activity do you participate in: walking frequency: 3-4 times per week duration: 45-60 minutes/day charlie/yarsani: Holiness seatbelt use: always do you feel safe at home: Yes additional social history: Dagoberto- Works for [employer] 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 Date Name GA/Weeks Outcome Route Bth Weight Gen Labor Lgth Anesthesia Del Locatn Provider FOB 05/12/18 adaline 32 live - 4lb 7 oz Female started at 18 we eks none [facility] 09/08/19 [place] 34 live - 6.10 Female none [facility] Dr. Trav Richardson 12/20/22 [place] 35 live - 6#6oz Female epidural [facility] Jh Richardson Delivery Date: 09/08/19 Last Updated by: Delia Street transferred to [facility] Visit Details Expected Delivery Route/Plan Labor Preferences- CB/BF classes: [] labor support person: [] labor intervention preferences: [] pain management options preferred: [] cut cord/dad catch: [] : [] PP control planned: [] discussed possible routes of delivery and associated risks: [] special requests: [] Plans Covid status: [] Flu vaccine: given Tdap vaccine: [] Rhogam: [] LARC form signed: [] Problem list reviewed and updated with the most current plan of care details and appropriate orders placed. Relevant counseling for the gestational age provided. Continue routine care and follow up unless otherwise noted in visit notes/problem list details OB Flowsheet Initial Weight: Not Recorded Date -???-???-???-???-???-?? ?-???-???-???-???-???-? ??- EGA Weight BP Urine Prot -???-???-???-??? (more content not included)... Normal [facility] L509.8000on 12-05-2024 Syphilis Abs Non-Reactive Normal [facility] Comment on above: Performed By: #### L 509.8000 #### [facility] [address] [facility] [place], [address] MR/OB.VAGDELIon 12-05-2024 [facility] Medical Records Department [address] [place] [address] OB Vaginal Delivery 12/05/24 1057 MR#: [id number] Acct: [id number] Name: ALMA HARRELL Rep #: [id number] : 2000 24 From: Rosalba Edwards MD PCP: TERRI Elmore Status:ADM IN Location: MN320-9 Assessment Plan (1) Active labor at term: (2) History of anomaly in prior , currently : COMMENT: laryngomalacia, stabismus, developmental delay (3) Obesity (BMI 30.0-34.9): COMMENT: HgbA1c WNL (4) Hx of delivery, currently : COMMENT: MFM consult- progesterone used in last pregnancies but not necessarily indicated based on newer evidence. after discussing with patient, wants to continue this - ordered vaginl 200mg nightly, CL US q 2 weeks at 16 weeks. Delivered at 32 weeks. Fever, elevated bp- thought sepsis but no evaluation of placenta. (5) Supervision of high-risk : QUALIFIERS: Trimester: second trimester Qualified Code(s): O09.92 - Supervision of high risk , unspecified, second trimester COMMENT: PRR, , ELIJAH 01/02/25, boy,PC Harper [place] Julianne Dagoberto (6) : QUALIFIERS: Weeks of gestation: 34 weeks Qualified Code(s): Z3A.34 - 34 weeks gestation of COMMENT: GBS Negative, NIPT low risk. Horizon neg (7) Major depression: QUALIFIERS: Major depression recurrence: recurrent Active/Remission status: currently active Major depression episode severity: moderate Qualified Code(s): F33.1 - Major depressive disorder, recurrent, moderate COMMENT: failed multiple agents- trying zoloft again and referral to mann bravo and gladis Thomas Maternal Data Information ELIJAH Calculator Estimated Delivery Date Method Current WG Current Estimate 01/02/25 LMP (Certain) 36w 0d Vaginal Delivery Maternal Presentation Maternal Presentation: see assessment and plan Vaginal Delivery Information Procedure Performed: Spontaneous Vaginal Delivery Surgeon/Practitioner: Rosalba Edwards Date of Procedure: 12/05/24 Pre-Procedure Diagnosis: see assessment and plan Post-Procedure Diagnosis: same Type of anesthesia: Epidural Estimated Blood Loss: 200 Findings Description of procedure: Patient began pushing and delivered the head in the ABRIL presentation. The head was delivered atraumatically . The anterior and posterior shoulders delivered without complication followed by the rest of the and the was placed on the maternal abdomen. Delayed cord clamping was employed for approximately 60 seconds. Cord was clamped and cut and gentle traction was applied to the cord and the placenta delivered spontaneously immediately following it was noted to be intact with three-vessel cord. The perineum and vagina were inspected and noted to have no laceration. EBL was 200. Patient and tolerated delivery well. Presentation: Vertex Placental Delivery Description: Spontaneous Specimen collected: Yes Description of specimen(s) removed: placenta Brand Leader physical therapy director: No Post Vaginal Deli Medications given after delivery: Other (pitocin) Complication Complications: No Multi Select Codes Urinary/Genital Urinary/Genital CPT Codes: 11577 Vaginal Delivery [facility] 12/05/24 1058 Cosigner Signature (if applicable): CC: TERRI Painting; Dr. Rosalba Edwards MD Signed [facility] Type AND Screenon 12-05-2024 Ab SCREEN GEL Negative [facility] Comment on above: Order Comment: Labor Performed By: #### L 100.0100, BTS ####[facility] [address] [place], [address] OB Triage Physician Noteon 0 12-03-2024 OB Triage Physician Note [facility] Medical Records Department [address] [place] [address] OB Triage Physician Note 12/03/24 1939 MR#: [id number] Acct: [id number] Name: ALMA HARRELL Rep #: [id number] : 2000 24 From: Cherelle Cid CNM PCP: THAO ElmoreC Status:REG CLI Y Location: [place] [address] HPI - General General Date of Service: 12/03/24 HPI Narrative ALMA HARRELL, is a 24 F who presents at 35.5 with mild contractions, hx of labor and delivery. has been treated with steroids in past. denies lof/vb. has good fm. Maternal Data Information ELIJAH Calculator Estimated Delivery Date Method Current WG Current Estimate 01/02/25 LMP (Certain) 35w 5d PFSH PFSH Medical History OCD (obsessive compulsive disorder) PTSD (post-traumatic stress disorder) Major depression Vaginal delivery Family history of hearing loss at age younger than 7 years History of pre-term labor depression Anxiety Home Medications ???Medication ???Instructions ???Recorded ???Last Taken ???Type ondansetron 4 mg disintegrating 4 mg PO Q4H PRN nausea and 05/19/24 12/02/24 17:00 Rx tablet vomiting #60 tabs multivitamin no.47-iron fum 27 1 cap PO DAILY 06/04/24 12/03/24 07:00 History mg-folate no.1 1 mg-dha 300 mg capsule (PNV-DHA) docusate sodium 100 mg capsule 100 mg PO BID 06/26/24 12/03/24 07:00 History (Colace) famotidine 20 mg tablet (Pepcid) 20 mg PO DAILY #30 tabs 07/06/24 12/02/24 20:00 Rx aspirin 81 mg capsule 81 mg PO DAILY 09/14/24 12/02/24 20:00 History buspirone 15 mg tablet 15 mg PO TID PRN anxiety #90 tabs 10/14/24 12/02/24 20:00 Rx progesterone micronized 200 mg 200 mg vaginal QHS 30 days #30 caps 10/28/24 12/02/24 20:00 Rx capsule (Prometrium) sertraline 100 mg tablet (Zoloft) 100 mg PO QDAY #30 tabs 10/28/24 12/02/24 20:00 Rx Allergy/AdvReac Type Severity Reaction Status Date / Time No Known Allergies Allergy Verified 12/03/24 17:44 Family History Grandfather Spina bifida unconfirmed Surgical History H/O hernia repair History of cholecystectomy History of tonsillectomy Social History adopted: No household members: spouse and children housing: house number of children: 3 current occupational status: unemployed 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 current occupational exposures/hazards: No pets and animals: Yes (Avoid litterbox) pets and animals: cat(s) and dog(s) history of recent travel: Yes ([place]) out of state: Yes out of country: No sexually active: Yes Smoking Status: Never smoker alcohol intake: never substance use type: does not use well-balanced diet: daily or most days caffeine: No (occasional) eating out: rarely or never during the past year weight has: decreased > 10 lbs what type of physical activity do you participate in: walking frequency: 3-4 times per week duration: 45-60 minutes/day charlie/yarsani: Holiness seatbelt use: always do you feel safe at home: Yes additional social history: [employer]- Works for [employer] 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 Date Name GA/Weeks Outcome Route Bth Weight Infant Gen Labor Lgth Anesthesia Del Locatn Provider FOB 05/12/18 adaline 32 live - 4lb 7 oz Female started at 18 we eks none [facility] 09/08/19 [place] 34 live - 6.10 Female none [facility] Dr. Trav Richardson 12/20/22 Mellissa 35 live - 6#6oz Female epidural [facility] Jh Richardson Delivery Date: 09/08/19 Last Updated by: Delia Street transferred to [facility] Visit Details Expected Delivery Route/Plan Labor Preferences- CB/BF classes: [] labor support person: [] labor intervention preferences: [] pain management options preferred: [] cut cord/dad catch: [] : [] PP control planned: [] discussed possible routes of delivery and associated risks: [] special requests: [] Plans Covid status: [] Flu vaccine: given Tdap vaccine: [] Rhogam: [] LARC form signed: [] Problem list reviewed and updated with the most current plan of care details and appropriate orders placed. Relevant counseling for the gestational age provided. Continue routine care and follow up unless otherwise noted in visit notes/problem list details OB Flowsheet Initial Weight: Not Recorded Date -???-???-???-???-???- (more content not included)... Normal [facility] Rule out Beta Strep (Grp. B) on 11-27-2024 MORENITA Group B Beta Streptococcus is not isolated. Normal [facility] Comment on above: Performed By: #### M 100.2200, L7000.1800, L7400.0353 #### [facility] [address] [place], [address] CBC W/Diff, Automatedon Absolute Lymph 2.93 X10 3/uL Normal 0.83-4.51 [facility] Comment on above: Performed By: #### L 100.0100, L501.0900, L500.4050 ####[facility] [address] [place], [address] Absolute Neut 13.6 X10 3/uL High 2.0-7.7 [facility] Comment on above: Performed By: #### L 100.0100, L501.0900, L500.4050 ####[facility] [address] [place], [address] Basophils/100 WBC (Bld) 0.4 % Normal 0-1 [facility] Comment on above: Performed By: #### L 100.0100, L501.0900, L500.4050 ####[facility] [address] [place], [address] Eosinophils/100 WBC (Bld) 1.2 % Normal 0-5 [facility] Comment on above: Performed By: #### L 100.0100, L501.0900, L500.4050 ####[facility] [address] [place], [address] Erythrocyte distribution width (RBC) [Ratio] 12.4 % Normal 11.6-14.6 [facility] Comment on above: Performed By: #### L 100.0100, L501.0900, L500.4050 ####[facility] [address] [place], [address] Hematocrit (Bld) [Volume fraction] 37.7 % Normal 37-47 [facility] Comment on above: Performed By: #### L 100.0100, L501.0900, L500.4050 ####[facility] [address] [place], [address] Hemoglobin (Bld) [Mass/Vol] 13.0 g/dL Normal 12.0-15.0 [facility] Comment on above: Performed By: #### L 100.0100, L501.0900, L500.4050 ####[facility] [address] [place], [address] IG% 0.500 Normal 0.0-0.9 [facility] Comment on above: Result Comment: IG% - Immature Granulocytes (promyelocytes, myelocytes and metamyelocytes) > 1% indicates that a LEFT SHIFT is Present. Performed By: #### L 100.0100, L501.0900, L500.4050 ####[facility] [address] [place], [address] Lymphocytes/100 WBC (Bld) 16.5 % Low 19-41 [facility] Comment on above: Performed By: #### L 100.0100, L501.0900, L500.4050 ####[facility] [address] [place], [address] MCH (RBC) [Entitic mass] 30.8 pg Normal 27.0-32.0 [facility] Comment on above: Performed By: #### L 100.0100, L501.0900, L500.4050 ####[facility] [address] [place], [address] MCHC (RBC) [Mass/Vol] 34.5 g/dL Normal 32-36 [facility] Comment on above: Performed By: #### L 100.0100, L501.0900, L500.4050 ####[facility] [address] [place], [address] MCV (RBC) [Entitic vol] 89.3 fL Normal 81-99 [facility] Comment on above: Performed By: #### L 100.0100, L501.0900, L500.4050 ####[facility] [address] [place], [address] Monocytes/100 WBC (Bld) 5.3 % Normal 0-10 [facility] Comment on above: Performed By: #### L 100.0100, L501.0900, L500.4050 ####[facility] [address] [place], [address] Neutrophils/100 WBC (Bld) 76.1 % High 47-70 [facility] Comment on above: Performed By: #### L 100.0100, L501.0900, L500.4050 ####[facility] [address] [place], [address] Nucleated RBC (Bld) [#/Vol] 0 10*3/uL Normal 0-5 [facility] Comment on above: Performed By: #### L 100.0100, L501.0900, L500.4050 ####[facility] [address] [place], [address] Platelet mean volume (Bld) [Entitic vol] 9.8 fL Normal 6.2-12.0 [facility] Comment on above: Performed By: #### L 100.0100, L501.0900, L500.4050 ####[facility] [address] [place], [address] Platelets (Bld) [#/Vol] 322 10*3/uL Normal 150-450 [facility] Comment on above: Performed By: #### L 100.0100, L501.0900, L500.4050 ####[facility] [address] [place], [address] RBC (Bld) [#/Vol] 4.22 10*6/uL Normal 4.2-5.4 [facility] Comment on above: Performed By: #### L 100.0100, L501.0900, L500.4050 ####[facility] [address] [place], [address] RDW SD 39.8 fl Normal 35.1-43.9 [facility] Comment on above: Performed By: #### L 100.0100, L501.0900, L500.4050 ####[facility] [address] [place], [address] WBC (Bld) [#/Vol] 17.8 10*3/uL High 4.4-11.0 [facility] Comment on above: Performed By: #### L 100.0100, L501.0900, L500.4050 ####[facility] [address] [place], [address] Comprehensive Metabolic Prof ilon 11-25-2024 Albumin [Mass/Vol] 2.8 g/dL Low 3.2-5.0 [facility] Comment on above: Performed By: #### M 100.2200, L7000.1800, L7400.0353 #### [facility] [address] [place], [address] Albumin/Globulin [Mass ratio] 0.6 {ratio} Low 0.9-2.4 [facility] Comment on above: Performed By: #### M 100.2200, L7000.1800, L7400.0353 #### [facility] [address] [place], [address] ALK P 88 U/L Normal 45-117 [facility] Comment on above: Performed By: #### M 100.2200, L7000.1800, L7400.0353 #### [facility] [address] [place], [address] ALT [Catalytic activity/Vol] 13 U/L Normal 13-56 [facility] Comment on above: Performed By: #### M 100.2200, L7000.1800, L7400.0353 #### [facility] [address] [place], [address] AST [Catalytic activity/Vol] 12 U/L Low 15-37 [facility] Comment on above: Performed By: #### M 100.2200, L7000.1800, L7400.0353 #### [facility] [address] [place], [address] Bilirubin [Mass/Vol] 0.30 mg/dL Normal 0.20-1.00 [facility] Comment on above: Result Comment: For patients on eltrombopag therapy, use of Dimension Gorin TBIL is not recommended. Performed By: #### M 100.2200, L7000.1800, L7400.0353 #### [facility] [address] [place], [address] BUN/CRE 5.7 RATIO Low 10-20 [facility] Comment on above: Performed By: #### M 100.2200, L7000.1800, L7400.0353 #### [facility] [address] [place], [address] CA,Total 8.6 mg/dL Normal 8.5-10.1 [facility] Comment on above: Performed By: #### M 100.2200, L7000.1800, L7400.0353 #### [facility] [address] [place], [address] Chloride [Moles/Vol] 107 mmol/L Normal 98-107 [facility] Comment on above: Performed By: #### M 100.2200, L7000.1800, L7400.0353 #### [facility] [address] [place], [address] CO2 [Moles/Vol] 20.0 mmol/L Low 21.0-32.0 [facility] Comment on above: Performed By: #### M 100.2200, L7000.1800, L7400.0353 #### [facility] [address] [place], [address] Creatinine [Mass/Vol] 0.70 mg/dL Normal 0.55-1.02 [facility] Comment on above: Result Comment: The validity of the calculated GFR GFRAA in patients over 70 years has not been determined. Clinical correlation is essential. Performed By: #### M 100.2200, L7000.1800, L7400.0353 #### [facility] [address] [place], [address] EST GFR - AA 130 mL/min Normal >60 [facility] Comment on above: Result Comment: Afri can Bel[place]ian GFR Calc Performed By: #### M 100.2200, L7000.1800, L7400.0353 #### [facility] [address] [place], [address] GAP 10 Normal 5-15 [facility] Comment on above: Performed By: #### M 100.2200, L7000.1800, L7400.0353 #### [facility] [address] [place], [address] GFR/1.73 sq M.predicted among non-blacks MDRD (S/P/Bld) [Vol rate/Area] 108 mL/min/{1.73_m2} Normal >60 [facility] Comment on above: Result Comment: Non- GFR Calc Performed By: #### M 100.2200, L7000.1800, L7400.0353 #### [facility] [address] [place], [address] Globulin (S) [Mass/Vol] 4.4 g/dL High 2.2-4.2 [facility] Comment on above: Performed By: #### M 100.2200, L7000.1800, L7400.0353 #### [facility] [address] [place], [address] Glucose [Mass/Vol] 81 mg/dL Normal 74-106 [facility] Comment on above: Performed By: #### M 100.2200, L7000.1800, L7400.0353 #### [facility] [address] [place], [address] Potassium [Moles/Vol] 3.8 mmol/L Normal 3.5-5.1 [facility] Comment on above: Performed By: #### M 100.2200, L7000.1800, L7400.0353 #### [facility] [address] [place], [address] Sodium [Moles/Vol] 137 mmol/L Normal 136-145 [facility] Comment on above: Performed By: #### M 100.2200, L7000.1800, L7400.0353 #### [facility] [address] [place], [address] T PROT 7.2 g/dL Normal 6.4-8.2 [facility] Comment on above: Performed By: #### M 100.2200, L7000.1800, L7400.0353 #### [facility] [address] [place], [address] Urea nitrogen [Mass/Vol] 4 mg/dL Low 7-18 [facility] Comment on above: Performed By: #### M 100.2200, L7000.1800, L7400.0353 #### [facility] [address] [place], [address] [employer] Office Visit Reporton 11-25-2024 [employer] Driver Office Visit Report [facility], [address] [place] [address] OFFICE VISIT Date of Service: 11/25/24 MR#: [id number] Acct: [id number] Name: ALMA HARRELL Rep #: [id number] : 2000 Provider: Dr. Zakia Lemus DO Age/Sex: 24/F Location: [facility] [place] Status: Signed Intake Vital Signs 06/07/24 12:52 07/06/24 14:12 11/12/24 10:37 11/25/24 09:55 11/25/24 09:57 Height 5 ft 7 in 5 ft 7 in 5 ft 7 in 5 ft 7 in 5 ft 7 in Weight: 216 lb 4 oz BMI 33.8 BP 134/84 H Intake Visit Reasons: 34 WK OB [employer] Representative Required: No Is patient in pain?: No Allergies No Known Allergies Allergy (Verified 11/25/24 09:54) Medications ???Medication ???Instructions ???Recorded ???Confirmed ???Type ondansetron 4 mg disintegrating 4 mg PO Q4H PRN nausea and 05/19/24 11/25/24 Rx tablet vomiting #60 tabs multivitamin no.47-iron fum 27 1 cap PO DAILY 06/04/24 11/25/24 History mg-folate no.1 1 mg-dha 300 mg capsule (PNV-DHA) docusate sodium 100 mg capsule 100 mg PO BID 06/26/24 11/25/24 History (Colace) famotidine 20 mg tablet (Pepcid) 20 mg PO DAILY #30 tabs 07/06/24 11/25/24 Rx aspirin 81 mg capsule 81 mg PO DAILY 09/14/24 11/25/24 History buspirone 15 mg tablet 15 mg PO TID PRN anxiety #90 tabs 10/14/24 11/25/24 Rx sertraline 50 mg tablet 50 mg PO DAILY 10/15/24 11/25/24 History ondansetron 4 mg disintegrating 4 mg PO Q8H PRN nausea and 10/28/24 11/25/24 Rx tablet vomiting #30 tabs progesterone micronized 200 mg 200 mg vaginal QHS 30 days #30 caps 10/28/24 11/25/24 Rx capsule (Prometrium) sertraline 100 mg tablet (Zoloft) 100 mg PO QDAY #30 tabs 10/28/24 11/25/24 Rx Last Menstrual Period: 03/28/24 Zika: Zika virus screening: Negative : No PFSH PFSH Medical History OCD (obsessive compulsive disorder) PTSD (post-traumatic stress disorder) Major depression Vaginal delivery Family history of hearing loss at age younger than 7 years History of pre-term labor depression Anxiety Surgical History H/O hernia repair History of cholecystectomy History of tonsillectomy Family History Grandfather Spina bifida unconfirmed Social History adopted: No household members: spouse and children housing: house number of children: 3 current occupational status: unemployed 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 current occupational exposures/hazards: No pets and animals: Yes (Avoid litterbox) pets and animals: cat(s) and dog(s) history of recent travel: Yes ([place]) out of state: Yes out of country: No sexually active: Yes Smoking Status: Never smoker alcohol intake: never substance use type: does not use well-balanced diet: daily or most days caffeine: No (occasional) eating out: rarely or never during the past year weight has: decreased > 10 lbs what type of physical activity do you participate in: walking frequency: 3-4 times per week duration: 45-60 minutes/day charlie/yarsani: Holiness seatbelt use: always do you feel safe at home: Yes additional social history: [employer]- Works for [employer] 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 Date Name GA/Weeks Outcome Route Bth Weight Gen Labor Lgth Anesthesia Del Locatn Provider FOB 05/12/18 adaline 32 live - 4lb 7 oz Female started at 18 we eks none [facility] 09/08/19 [place] 34 live - 6.10 Female none [facility] Dr. Trav Richardson 12/20/22 Mellissa 35 live - 6#6oz Female epidural [facility] Jh Richardson Delivery Date: 09/08/19 Last Updated by: Delia Street transferred to [facility] HPI 34 WK OB Details: ALMA HARRELL is a 24 year old who presents for routine OB visit. OB Visit ELIJAH Calculator Estimated Delivery Date Method Current WG Current Estimate 01/02/25 LMP (Certain) 34w 4d Expected Delivery Route/Plan Labor Preferences- CB/BF classes: [] labor support person: [] labor intervention preferences: [] pain management options preferred: [] cut cord/dad catch: [] : [] PP control planned: [] discussed possible routes of delivery and associated risks: [] special requests: [] Specific Issue/Plans Covid status: [] Flu vaccine: given Tdap vaccine: [] Rhogam: [] LARC form signed: [] Problem list re (more content not included)... Normal [facility] Protein+Creatinine Ratio,Uri neon 11-25-2024 PROT:CRE RATIO TNP Normal 0-200 [facility] Comment on above: Performed By: #### L 100.0100, L501.0900, L500.4050 ####[facility] [address] [place], [address] PROTEIN,UR.RAN. < 6.0 Normal <11.9 [facility] Comment on above: Performed By: #### L 100.0100, L501.0900, L500.4050 ####[facility] [address] [place], [address] UR CREAT < 13.00 Normal NO RANGE EST. [facility] Comment on above: Performed By: #### L 100.0100, L501.0900, L500.4050 ####[facility] [address] [place], [address] [employer] Office Visit Reporton 11-12-2024 Oil [employer] Driver Office Visit Report [facility] [address], [address] [place] [address] OFFICE VISIT Date of Service: 11/12/24 MR#: [id number] Acct: [id number] Name: ALMA HARRELL Rep #: [id number] : 2000 Provider: MELITON goodman Age/Sex: 24/F Location: [facility] [place] Status: Signed Intake Vital Signs 06/07/24 12:52 09/14/24 18:31 10/28/24 09:37 11/12/24 10:33 11/12/24 10:37 Height 5 ft 7 in 5 ft 7 in 5 ft 7 in 5 ft 7 in 5 ft 7 in Weight: 216 lb 5 oz BMI 33.8 BP 112/60 Intake Visit Reasons: 32 WK OB [employer] Representative Required: No Is patient in pain?: No Allergies No Known Allergies Allergy (Verified 11/12/24 10:32) Medications ???Medication ???Instructions ???Recorded ???Confirmed ???Type ondansetron 4 mg disintegrating 4 mg PO Q4H PRN nausea and 05/19/24 11/12/24 Rx tablet vomiting #60 tabs multivitamin no.47-iron fum 27 1 cap PO DAILY 06/04/24 11/12/24 History mg-folate no.1 1 mg-dha 300 mg capsule (PNV-DHA) docusate sodium 100 mg capsule 100 mg PO BID 06/26/24 11/12/24 History (Colace) famotidine 20 mg tablet (Pepcid) 20 mg PO DAILY #30 tabs 07/06/24 11/12/24 Rx aspirin 81 mg capsule 81 mg PO DAILY 09/14/24 11/12/24 History buspirone 15 mg tablet 15 mg PO TID PRN anxiety #90 tabs 10/14/24 11/12/24 Rx sertraline 50 mg tablet 50 mg PO DAILY 10/15/24 11/12/24 History ondansetron 4 mg disintegrating 4 mg PO Q8H PRN nausea and 10/28/24 11/12/24 Rx tablet vomiting #30 tabs progesterone micronized 200 mg 200 mg vaginal QHS 30 days #30 caps 10/28/24 11/12/24 Rx capsule (Prometrium) sertraline 100 mg tablet (Zoloft) 100 mg PO QDAY #30 tabs 10/28/24 11/12/24 Rx Last Menstrual Period: 03/28/24 Zika: Zika virus screening: Negative : No Have you fallen in the past year?: No PFSH PFSH Medical History OCD (obsessive compulsive disorder) PTSD (post-traumatic stress disorder) Major depression Vaginal delivery Family history of hearing loss at age younger than 7 years History of pre-term labor depression Anxiety Surgical History H/O hernia repair History of cholecystectomy History of tonsillectomy Family History Grandfather Spina bifida unconfirmed Social History adopted: No household members: spouse and children housing: house number of children: 3 current occupational status: unemployed 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 current occupational exposures/hazards: No pets and animals: Yes (Avoid litterbox) pets and animals: cat(s) and dog(s) history of recent travel: Yes ([place]) out of state: Yes out of country: No sexually active: Yes Smoking Status: Never smoker alcohol intake: never substance use type: does not use well-balanced diet: daily or most days caffeine: No (occasional) eating out: rarely or never during the past year weight has: decreased > 10 lbs what type of physical activity do you participate in: walking frequency: 3-4 times per week duration: 45-60 minutes/day charlie/yarsani: Holiness seatbelt use: always do you feel safe at home: Yes additional social history: [employer]- Works for [employer] 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 Date Name GA/Weeks Outcome Route Bth Weight Infant Gen Labor Lgth Anesthesia Del Locatn Provider FOB 05/12/18 adaline 32 live - 4lb 7 oz Female started at 18 we eks none [facility] 09/08/19 [place] 34 live - 6.10 Female none [facility] Dr. Trav Richardson 12/20/22 [place] 35 live - 6#6oz Female epidural [facility] Jh Richardson Delivery Date: 09/08/19 Last Updated by: Delia Street transferred to [facility] HPI 32 WK OB Details: ALMA HARRELL is a 24 year old who presents for routine OB visit. OB Visit ELIJAH Calculator Estimated Delivery Date Method Current WG Current Estimate 01/02/25 LMP (Certain) 32w 5d Expected Delivery Route/Plan Labor Preferences- CB/BF classes: [] labor support person: [] labor intervention preferences: [] pain management options preferred: [] cut cord/dad catch: [] : [] PP control planned: [] discussed possible routes of delivery and associated risks: [] special requests: [] Specific Issue/Plans Covid status: [] Flu vaccine: given Tdap vaccine: [] Rhogam: [] LARC form signed: [] Pr (more content not included)... Normal [facility] [employer] Office Visit Reporton 10-28-2024 [employer] Office Visit Report [facility] [address], [address] [place] [address] OFFICE VISIT Date of Service: 10/28/24 MR#: [id number] Acct: [id number] Name: ALMA HARRELL Rep #: [id number] : 2000 Provider: Dr. Zakia Lemus DO Age/Sex: 24/F Location: [facility] [place] Status: Signed Intake Vital Signs 06/07/24 12:52 10/16/24 19:20 10/28/24 09:37 10/28/24 09:37 Height 5 ft 7 in 5 ft 7 in 5 ft 7 in 5 ft 7 in Weight: 215 lb BMI 33.6 BP 122/83 H Intake Visit Reasons: 30 WK OB [employer] Representative Required: No Is patient in pain?: No Allergies No Known Allergies Allergy (Verified 10/28/24 09:36) Medications ???Medication ???Instructions ???Recorded ???Confirmed ???Type ondansetron 4 mg disintegrating 4 mg PO Q4H PRN nausea and 05/19/24 10/28/24 Rx tablet vomiting #60 tabs multivitamin no.47-iron fum 27 1 cap PO DAILY 06/04/24 10/28/24 History mg-folate no.1 1 mg-dha 300 mg capsule (PNV-DHA) docusate sodium 100 mg capsule 100 mg PO BID 06/26/24 10/28/24 History (Colace) famotidine 20 mg tablet (Pepcid) 20 mg PO DAILY #30 tabs 07/06/24 10/28/24 Rx aspirin 81 mg capsule 81 mg PO DAILY 09/14/24 10/28/24 History buspirone 15 mg tablet 15 mg PO TID PRN anxiety #90 tabs 10/14/24 10/28/24 Rx sertraline 50 mg tablet 50 mg PO DAILY 10/15/24 10/28/24 History ondansetron 4 mg disintegrating 4 mg PO Q8H PRN nausea and 10/28/24 10/28/24 Rx tablet vomiting #30 tabs progesterone micronized 200 mg 200 mg vaginal QHS 30 days #30 caps 10/28/24 10/28/24 Rx capsule (Prometrium) sertraline 100 mg tablet (Zoloft) 100 mg PO QDAY #30 tabs 10/28/24 10/28/24 Rx Last Menstrual Period: 03/28/24 Zika: Zika virus screening: Negative : No PFSH PFSH Medical History OCD (obsessive compulsive disorder) PTSD (post-traumatic stress disorder) Major depression Vaginal delivery Family history of hearing loss at age younger than 7 years History of pre-term labor depression Anxiety Surgical History H/O hernia repair History of cholecystectomy History of tonsillectomy Family History Grandfather Spina bifida unconfirmed Social History adopted: No household members: spouse and children housing: house number of children: 3 current occupational status: unemployed 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 current occupational exposures/hazards: No pets and animals: Yes (Avoid litterbox) pets and animals: cat(s) and dog(s) history of recent travel: Yes ([place]) out of state: Yes out of country: No sexually active: Yes Smoking Status: Never smoker alcohol intake: never substance use type: does not use well-balanced diet: daily or most days caffeine: No (occasional) eating out: rarely or never during the past year weight has: decreased > 10 lbs what type of physical activity do you participate in: walking frequency: 3-4 times per week duration: 45-60 minutes/day charlie/yarsani: Holiness seatbelt use: always do you feel safe at home: Yes additional social history: [employer]- Works for [employer] 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 Date Name GA/Weeks Outcome Route Bth Weight Gen Labor Lgth Anesthesia Del Locatn Provider FOB 05/12/18 adaline 32 live - 4lb 7 oz Female started at 20 we eks none [facility] 09/08/19 [place] 34 live - 6.10 Female none [facility] Dr. Trav Richardson 12/20/22 [place] 35 live - 6#6oz Female epidural [facility] Jh Richardson Delivery Date: 09/08/19 Last Updated by: Delia Street transferred to [facility] HPI 30 WK OB Details: ALMA HARRELL is a 24 year old who presents for routine OB visit. OB Visit ELIJAH Calculator Estimated Delivery Date Method Current WG Current Estimate 01/02/25 LMP (Certain) 30w 4d Expected Delivery Route/Plan Labor Preferences- CB/BF classes: [] labor support person: [] labor intervention preferences: [] pain management options preferred: [] cut cord/dad catch: [] : [] PP control planned: [] discussed possible routes of delivery and associated risks: [] special requests: [] Specific Issue/Plans Covid status: [] Flu vaccine: given Tdap vaccine: [] Rhogam: [] LARC form signed: [] Problem list reviewed and updated with the most (more content not included)... Normal [facility] OB Triage Physician Noteon 1 12-20-2023 OB Triage Physician Note [facility] Medical Records Department [address] [place] [id number] OB Triage Physician Note 10/20/24 0853 MR#: [id number] Acct: [id number] Name: ALMA HARRELL Rep #: [id number] : 2000 24 From: Rosalba Edawrds MD PCP: [employer] NP-C Status:DEP CLI Y Location: [facility] HPI - General HPI Narrative ALMA HARRELL, is a 24 F who presents with contractions every ten minutes for the last few hours, history of , dneies any vb lof admits good fm. no recent infections. Maternal Data Information ELIJAH Calculator Estimated Delivery Date Method Current WG Current Estimate 01/02/25 LMP (Certain) 29w 3d PFSH PFSH Medical History OCD (obsessive compulsive disorder) PTSD (post-traumatic stress disorder) Major depression Vaginal delivery Family history of hearing loss at age younger than 7 years History of pre-term labor depression Anxiety Home Medications ???Medication ???Instructions ???Recorded ???Last Taken ???Type ondansetron 4 mg disintegrating 4 mg PO Q4H PRN nausea and 05/19/24 10/15/24 09:00 Rx tablet vomiting #60 tabs 4 mg multivitamin no.47-iron fum 27 1 cap PO DAILY 06/04/24 10/15/24 09:00 History mg-folate no.1 1 mg-dha 300 mg 1 cap capsule (PNV-DHA) docusate sodium 100 mg capsule 100 mg PO BID 06/26/24 10/15/24 21:00 History (Colace) famotidine 20 mg tablet (Pepcid) 20 mg PO DAILY #30 tabs 07/06/24 10/15/24 21:30 Rx progesterone micronized 200 mg 200 mg vaginal QHS 30 days #30 caps 07/06/24 10/15/24 21:00 Rx capsule (Prometrium) aspirin 81 mg capsule 81 mg PO DAILY 09/14/24 10/15/24 21:00 History buspirone 15 mg tablet 15 mg PO TID PRN anxiety #90 tabs 10/14/24 Unknown Rx sertraline 50 mg tablet 50 mg PO DAILY 10/15/24 10/15/24 21:00 History Allergy/AdvReac Type Severity Reaction Status Date / Time No Known Allergies Allergy Verified 10/16/24 19:29 Family History Grandfather Spina bifida unconfirmed Surgical History H/O hernia repair History of cholecystectomy History of tonsillectomy Social History adopted: No household members: spouse and children housing: house number of children: 3 current occupational status: unemployed 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 current occupational exposures/hazards: No pets and animals: Yes (Avoid litterbox) pets and animals: cat(s) and dog(s) history of recent travel: Yes ([place]) out of state: Yes out of country: No sexually active: Yes Smoking Status: Never smoker alcohol intake: never substance use type: does not use well-balanced diet: daily or most days caffeine: No (occasional) eating out: rarely or never during the past year weight has: decreased > 10 lbs what type of physical activity do you participate in: walking frequency: 3-4 times per week duration: 45-60 minutes/day charlie/yarsani: Holiness seatbelt use: always do you feel safe at home: Yes additional social history: [employer]- Works for [employer] 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 Date Name GA/Weeks Outcome Route Bt Weight Gen Labor Lgth Anesthesia Del Locat Provider FOB 05/12/18 adaline 32 live - 4lb 7 oz Female started at 20 we eks none [facility] 09/08/19 [place] 34 live - 6.10 Female none [facility] Dr. Trav Richardson 12/20/22 [place] 35 live - 6#6oz Female epidural [facility] Jh Richardson Delivery Date: 09/08/19 Last Updated by: Delia Street transferred to [facility] Visit Details Expected Delivery Route/Plan Labor Preferences- CB/BF classes: [] labor support person: [] labor intervention preferences: [] pain management options preferred: [] cut cord/dad catch: [] : [] PP control planned: [] discussed possible routes of delivery and associated risks: [] special requests: [] Plans Covid status: [] Flu vaccine: given Tdap vaccine: [] Rhogam: [] LARC form signed: [] Problem list reviewed and updated with the most current plan of care details and appropriate orders placed. Relevant counseling for the gestational age provided. Continue routine care and follow up unless otherwise noted in visit notes/problem list details OB Flowsheet Initial Weight: Not Recorded Date -???-???-???-???-???-?? ?-???-???-???-???-???-? ??- EGA Weight BP Uri (more content not included)... Normal [facility] Urine Cultureon 10-17-2024 URC Mixed Gram Positive Organisms Webster Count 50,000-80,000 MIXC Mixed contaminants. Submit a new specimen if indicated. Normal [facility] Comment on above: Performed By: #### L 400.0001, L205.0000, M100.2200 #### [facility] [address] [place], [address] Fibronectinon 10-15-20 24 fFIBRONECTIN Negative Normal [facility] Comment on above: Performed By: #### L 400.0001, L205.0000, M100.2200 #### [facility] [address] [place], [address] Urinalysis, Completeon 10-15 BACTERIA 1+ /hpf Normal None Seen [facility] Comment on above: Order Comment: CLEAN CATCH Performed By: #### L 400.0001, L205.0000, M100.2200 #### [facility] [address] [place], [address] EPI,SQUAMOUS 0-5 SEEN Normal 5-10 [facility] Comment on above: Order Comment: CLEAN CATCH Performed By: #### L 400.0001, L205.0000, M100.2200 #### [facility] [address] [place], [address] WBC 5-10 SEEN Normal 0-5 [facility] Comment on above: Order Comment: CLEAN CATCH Performed By: #### L 400.0001, L205.0000, M100.2200 #### [facility] [address] [place], [address] Mucus Ql (Urine sed) 0 SEEN Normal [facility] Comment on above: Order Comment: CLEAN CATCH Performed By: #### L 400.0001, L205.0000, M100.2200 #### [facility] [address] [place], [address] RBC 0 SEEN Normal 0-5 [facility] Comment on above: Order Comment: CLEAN CATCH Performed By: #### L 400.0001, L205.0000, M100.2200 #### [facility] [address] [place], [address] [employer] Office Visit Reporton 10-14-2024 [employer] Office Visit Report [facility], [address] [place] [address] OFFICE VISIT Date of Service: 10/14/24 MR#: [id number] Acct: [id number] Name: ALMA HARRELL CHALO Rep #: [id number] : 2000 Provider: Dr. Zakia Lemus DO Age/Sex: 24/F Location: [facility] [place] Status: Signed Intake Vital Signs 06/07/24 12:52 09/28/24 09:38 10/14/24 09:39 10/14/24 09:40 Height 5 ft 7 in 5 ft 7 in 5 ft 7 in 5 ft 7 in Weight: 211 lb 8 oz BMI 33.1 BP 110/76 Intake Visit Reasons: 28 WK OB [employer] Representative Required: No Is patient in pain?: No Allergies No Known Allergies Allergy (Verified 10/14/24 09:39) Medications ???Medication ???Instructions ???Recorded ???Confirmed ???Type ondansetron 4 mg disintegrating 4 mg PO Q4H PRN nausea and 05/19/24 10/14/24 Rx tablet vomiting #60 tabs multivitamin no.47-iron fum 27 1 cap PO DAILY 06/04/24 10/14/24 History mg-folate no.1 1 mg-dha 300 mg capsule (PNV-DHA) docusate sodium 100 mg capsule 100 mg PO BID 06/26/24 10/14/24 History (Colace) famotidine 20 mg tablet (Pepcid) 20 mg PO DAILY #30 tabs 07/06/24 10/14/24 Rx progesterone micronized 200 mg 200 mg vaginal QHS 30 days #30 caps 07/06/24 10/14/24 Rx capsule (Prometrium) aspirin 81 mg capsule 81 mg PO DAILY 09/14/24 10/14/24 History buspirone 15 mg tablet 15 mg PO TID PRN anxiety #90 tabs 10/14/24 10/14/24 Rx Last Menstrual Period: 03/28/24 Zika: Zika virus screening: Negative : No PFSH PFSH Medical History OCD (obsessive compulsive disorder) PTSD (post-traumatic stress disorder) Major depression Vaginal delivery Family history of hearing loss at age younger than 7 years History of pre-term labor depression Anxiety Surgical History H/O hernia repair History of cholecystectomy History of tonsillectomy Family History Grandfather Spina bifida unconfirmed Social History adopted: No household members: spouse and children housing: house number of children: 3 current occupational status: unemployed 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 current occupational exposures/hazards: No pets and animals: Yes (Avoid litterbox) pets and animals: cat(s) and dog(s) history of recent travel: Yes ([place]) out of state: Yes out of country: No sexually active: Yes Smoking Status: Never smoker alcohol intake: never substance use type: does not use well-balanced diet: daily or most days caffeine: No (occasional) eating out: rarely or never during the past year weight has: decreased > 10 lbs what type of physical activity do you participate in: walking frequency: 3-4 times per week duration: 45-60 minutes/day charlie/yarsani: Holiness seatbelt use: always do you feel safe at home: Yes additional social history: [employer]- Works for [employer] 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 Date Name GA/Weeks Outcome Route Bth Weight Infant Gen Labor Lgth Anesthesia Del Locatn Provider FOB 05/12/18 adaline 32 live - 4lb 7 oz Female started at 20 we eks none [facility] 09/08/19 [place] 34 live - 6.10 Female none [facility] Dr. rTav Richardson 12/20/22 [place] 35 live - 6#6oz Female epidural [facility] Jh Edwards Dagoberto Delivery Date: 09/08/19 Last Updated by: Delia Street transferred to [facility] 28 WK OB Details: ALMA HARRELL is a 24 year old who presents for routine OB visit. OB Visit ELIJAH Calculator Estimated Delivery Date Method Current WG Current Estimate 01/02/25 LMP (Certain) 28w 4d Expected Delivery Route/Plan Labor Preferences- CB/BF classes: [] labor support person: [] labor intervention preferences: [] pain management options preferred: [] cut cord/dad catch: [] : [] PP control planned: [] discussed possible routes of delivery and associated risks: [] special requests: [] Specific Issue/Plans Covid status: [] Flu vaccine: given Tdap vaccine: [] Rhogam: [] LARC form signed: [] Problem list reviewed and updated with the most current plan of care details and appropriate orders placed. Relevant counseling for the gestational age provided. Continue routine care and follow up unless otherwise noted in visit notes/problem list details Initial Weight: Not Recorded (more content not included)... Normal [facility] [employer] Office Visit Reporton 09-28-2024 [employer] Office Visit Report [facility] [address] [place] [address], [address] [place] [address] OFFICE VISIT Date of Service: 09/28/24 MR#: [id number] Acct: [id number] Name: ALMA HARRELL Rep #: [id number] : 2000 Provider: MELITON Galarza ams Age/Sex: 24/F Location: [facility] Status: Signed Intake Vital Signs 06/07/24 12:52 09/14/24 18:31 09/28/24 09:38 Height 5 ft 7 in 5 ft 7 in 5 ft 7 in Weight: 208 lb BMI 32.5 BP 110/75 Intake Visit Reasons: 24 WK OB [employer] Representative Required: No Is patient in pain?: No Allergies No Known Allergies Allergy (Verified 09/28/24 09:34) Medications ???Medication ???Instructions ???Recorded ???Confirmed ???Type ondansetron 4 mg disintegrating 4 mg PO Q4H PRN nausea and 05/19/24 09/28/24 Rx tablet vomiting #60 tabs multivitamin no.47-iron fum 27 1 cap PO DAILY 06/04/24 09/28/24 History mg-folate no.1 1 mg-dha 300 mg capsule (PNV-DHA) docusate sodium 100 mg capsule 100 mg PO BID 06/26/24 09/28/24 History (Colace) famotidine 20 mg tablet (Pepcid) 20 mg PO DAILY #30 tabs 07/06/24 09/28/24 Rx progesterone micronized 200 mg 200 mg vaginal QHS 30 days #30 caps 07/06/24 09/28/24 Rx capsule (Prometrium) aspirin 81 mg capsule 81 mg PO DAILY 09/14/24 09/28/24 History Last Menstrual Period: 03/28/24 Zika: Zika virus screening: Negative : No Have you fallen in the past year?: No PFSH PFSH Medical History OCD (obsessive compulsive disorder) PTSD (post-traumatic stress disorder) Major depression Vaginal delivery Family history of hearing loss at age younger than 7 years History of pre-term labor depression Anxiety Surgical History H/O hernia repair History of cholecystectomy History of tonsillectomy Family History Grandfather Spina bifida unconfirmed Social History adopted: No household members: spouse and children housing: house number of children: 3 current occupational status: unemployed 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 current occupational exposures/hazards: No pets and animals: Yes (Avoid litterbox) pets and animals: cat(s) and dog(s) history of recent travel: Yes ([place]) out of state: Yes out of country: No sexually active: Yes Smoking Status: Never smoker alcohol intake: never substance use type: does not use well-balanced diet: daily or most days caffeine: No (occasional) eating out: rarely or never during the past year weight has: decreased > 10 lbs what type of physical activity do you participate in: walking frequency: 3-4 times per week duration: 45-60 minutes/day charlie/yarsani: Holiness seatbelt use: always do you feel safe at home: Yes additional social history: [employer]- Works for [employer] 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 Date Name GA/Weeks Outcome Route Bth Weight Gen Labor Lgth Anesthesia Del Locatn Provider FOB 05/12/18 [place]aline 32 live - 4lb 7 oz Female started at 20 we eks none [facility] 09/08/19 [place] 34 live - 6.10 Female none [facility] Dr. Trav Richardson 12/20/22 [place] 35 live - 6#6oz Female epidural [facility] Jh Richardson Delivery Date: 09/08/19 Last Updated by: Delia Street transferred to [facility] HPI 26 WK OB Details: ALMA HARRELL is a 24 year old who presents for routine OB visit. OB Visit ELIJAH Calculator Estimated Delivery Date Method Current Current Estimate 01/02/25 LMP (Certain) 26w 2d Expected Delivery Route/Plan Labor Preferences- CB/BF classes: [] labor support person: [] labor intervention preferences: [] pain management options preferred: [] cut cord/dad catch: [] : [] PP control planned: [] discussed possible routes of delivery and associated risks: [] special requests: [] Specific Issue/Plans Covid status: [] Flu vaccine: given Tdap vaccine: [] Rhogam: [] LARC form signed: [] Problem list reviewed and updated with the most current plan of care details and appropriate orders placed. Relevant counseling for the gestational age provided. Continue routine care and follow up unless otherwise noted in visit notes/problem list details Initial Weight: Not Recorded Date -???-???-???-???-???-?? ?-???-???-???-???-???-? ??- EGA Weight BP Urine Prot -???-? (more content not included)... Normal [facility] Alcohol, Blood (Medical)-Ser umon 09-14-2024 SERUM ETOH < 3.0 Normal [facility] Comment on above: Result Comment: The serum:whole blood ethanol ratio is approximately 1.14 and varies slightly with hematocrit. Medical Alcohol reference interval and critical value in non-tolerant individuals; 50 - 100 Impairment 100 Intoxication 100 - 250 Severe Poisoning 250 - 400 Deep/possible fatal coma Performed By: #### L 505.5000, L100.0100, L700.6800, L501.9100, L500.2500 ####[facility] [address] [place], [place], [id number] Basic Metabolic Profile (BMP )on 09-14-2024 BUN/CRE 4.7 RATIO Low 10-20 [facility] Comment on above: Performed By: #### L 505.5000, L100.0100, L700.6800, L501.9100, L500.2500 ####[facility] [address] [place], [address] CA,Total 9.2 mg/dL Normal 8.5-10.1 [facility] Comment on above: Performed By: #### L 505.5000, L100.0100, L700.6800, L501.9100, L500.2500 ####[facility] [address] [place], [address] Chloride [Moles/Vol] 110 mmol/L High 98-107 [facility] Comment on above: Performed By: #### L 505.5000, L100.0100, L700.6800, L501.9100, L500.2500 ####[facility] [address] [place], [address] CO2 [Moles/Vol] 22.0 mmol/L Normal 21.0-32.0 [facility] Comment on above: Performed By: #### L 505.5000, L100.0100, L700.6800, L501.9100, L500.2500 ####[facility] [address] [place], [address] Creatinine [Mass/Vol] 0.63 mg/dL Normal 0.55-1.02 [facility] Comment on above: Result Comment: The validity of the calculated GFR GFRAA in patients over 70 years has not been determined. Clinical correlation is essential. Performed By: #### L 505.5000, L100.0100, L700.6800, L501.9100, L500.2500 ####[facility] [address] [place], [address] ECRCL 158.06 ml/min Normal [facility] Comment on above: Performed By: #### L 505.5000, L100.0100, L700.6800, L501.9100, L500.2500 ####[facility] [address] [place], [address] EST GFR - AA 146 mL/min Normal >60 [facility] Comment on above: Result Comment: Afri can Bel[place]ian GFR Calc Performed By: #### L 505.5000, L100.0100, L700.6800, L501.9100, L500.2500 ####[facility] [address] [place], [address] GAP 8 Normal 5-15 [facility] Comment on above: Performed By: #### L 505.5000, L100.0100, L700.6800, L501.9100, L500.2500 ####[facility] [address] [place], [address] GFR/1.73 sq M.predicted among non-blacks MDRD (S/P/Bld) [Vol rate/Area] 121 mL/min/{1.73_m2} Normal >60 [facility] Comment on above: Result Comment: Non- GFR Calc Performed By: #### L 505.5000, L100.0100, L700.6800, L501.9100, L500.2500 ####[facility] [address] [place], [address] Glucose [Mass/Vol] 96 mg/dL Normal 74-106 [facility] Comment on above: Performed By: #### L 505.5000, L100.0100, L700.6800, L501.9100, L500.2500 ####[facility] [address] [place], [address] Potassium [Moles/Vol] 3.3 mmol/L Low 3.5-5.1 [facility] Comment on above: Performed By: #### L 505.5000, L100.0100, L700.6800, L501.9100, L500.2500 ####[facility] [address] [place], [address] Sodium [Moles/Vol] 140 mmol/L Normal 136-145 [facility] Comment on above: Performed By: #### L 505.5000, L100.0100, L700.6800, L501.9100, L500.2500 ####[facility] [address] [place], [address] Urea nitrogen [Mass/Vol] 3 mg/dL Low 7-18 [facility] Comment on above: Performed By: #### L 505.5000, L100.0100, L700.6800, L501.9100, L500.2500 ####[facility] [address] [place], [address] CBC W/Diff, Automatedon 10-2 Absolute Lymph 2.77 X10 3/uL Normal 0.83-4.51 [facility] Comment on above: Performed By: #### L 505.5000, L100.0100, L700.6800, L501.9100, L500.2500 ####[facility] [address] [place], [address] Absolute Neut 9.4 X10 3/uL High 2.0-7.7 [facility] Comment on above: Performed By: #### L 505.5000, L100.0100, L700.6800, L501.9100, L500.2500 ####[facility] [address] [place], [address] Basophils/100 WBC (Bld) 0.3 % Normal 0-1 [facility] Comment on above: Performed By: #### L 505.5000, L100.0100, L700.6800, L501.9100, L500.2500 ####[facility] [address] [place], [address] Eosinophils/100 WBC (Bld) 2.2 % Normal 0-5 [facility] Comment on above: Performed By: #### L 505.5000, L100.0100, L700.6800, L501.9100, L500.2500 ####[facility] [address] [place], [address] Erythrocyte distribution width (RBC) [Ratio] 13.5 % Normal 11.6-14.6 [facility] Comment on above: Performed By: #### L 505.5000, L100.0100, L700.6800, L501.9100, L500.2500 ####[facility] [address] [place], [address] Hematocrit (Bld) [Volume fraction] 37.5 % Normal 37-47 [facility] Comment on above: Performed By: #### L 505.5000, L100.0100, L700.6800, L501.9100, L500.2500 ####[facility] [address] [place], [address] Hemoglobin (Bld) [Mass/Vol] 13.3 g/dL Normal 12.0-15.0 [facility] Comment on above: Performed By: #### L 505.5000, L100.0100, L700.6800, L501.9100, L500.2500 ####[facility] [address] [place], [address] IG% 0.400 Normal 0.0-0.9 [facility] Comment on above: Result Comment: IG% - Immature Granulocytes (promyelocytes, myelocytes and metamyelocytes) > 1% indicates that a LEFT SHIFT is Present. Performed By: #### L 505.5000, L100.0100, L700.6800, L501.9100, L500.2500 ####[facility] [address] [place], [address] Lymphocytes/100 WBC (Bld) 20.7 % Normal 19-41 [facility] Comment on above: Performed By: #### L 505.5000, L100.0100, L700.6800, L501.9100, L500.2500 ####[facility] [address] [place], [address] MCH (RBC) [Entitic mass] 31.4 pg Normal 27.0-32.0 [facility] Comment on above: Performed By: #### L 505.5000, L100.0100, L700.6800, L501.9100, L500.2500 ####[facility] [address] [place], [address] MCHC (RBC) [Mass/Vol] 35.5 g/dL Normal 32-36 [facility] Comment on above: Performed By: #### L 505.5000, L100.0100, L700.6800, L501.9100, L500.2500 ####[facility] [address] [place], [address] MCV (RBC) [Entitic vol] 88.4 fL Normal 81-99 [facility] Comment on above: Performed By: #### L 505.5000, L100.0100, L700.6800, L501.9100, L500.2500 ####[facility] [address] [place], [address] Monocytes/100 WBC (Bld) 6.1 % Normal 0-10 [facility] Comment on above: Performed By: #### L 505.5000, L100.0100, L700.6800, L501.9100, L500.2500 ####[facility] [address] [place], [address] Neutrophils/100 WBC (Bld) 70.3 % High 47-70 [facility] Comment on above: Performed By: #### L 505.5000, L100.0100, L700.6800, L501.9100, L500.2500 ####[facility] [address] [place], [address] Nucleated RBC (Bld) [#/Vol] 0 10*3/uL Normal 0-5 [facility] Comment on above: Performed By: #### L 505.5000, L100.0100, L700.6800, L501.9100, L500.2500 ####[facility] [address] [place], [address] Platelet mean volume (Bld) [Entitic vol] 10.0 fL Normal 6.2-12.0 [facility] Comment on above: Performed By: #### L 505.5000, L100.0100, L700.6800, L501.9100, L500.2500 ####[facility] [address] [place], [address] Platelets (Bld) [#/Vol] 319 10*3/uL Normal 150-450 [facility] Comment on above: Performed By: #### L 505.5000, L100.0100, L700.6800, L501.9100, L500.2500 ####[facility] [address] [place], [address] RBC (Bld) [#/Vol] 4.24 10*6/uL Normal 4.2-5.4 [facility] Comment on above: Performed By: #### L 505.5000, L100.0100, L700.6800, L501.9100, L500.2500 ####[facility] [address] [place], [address] RDW SD 43.3 fl Normal 35.1-43.9 [facility] Comment on above: Performed By: #### L 505.5000, L100.0100, L700.6800, L501.9100, L500.2500 ####[facility] [address] [place], [address] WBC (Bld) [#/Vol] 13.4 10*3/uL High 4.4-11.0 [facility] Comment on above: Performed By: #### L 505.5000, L100.0100, L700.6800, L501.9100, L500.2500 ####[facility] [address] [place], [address] Emergency Department Summary on 09-14-2024 Emergency Department Summary [facility] Medical Records Department [address] [place] [address] Emergency Department Summary 09/14/24 MR#: [id number] Acct: [id number] Name: ALMA HARRELL Rep #: [id number] : 2000 24 From: Juana Kaur DO PCP: Dai Garima, FILM WAXER-C Status:REG ER Location: ED HPI HPI - Psych History of Present Illness Chief Complaint: Suicidal Informant: patient Narrative Narrative: Patient 24-year-old female with history of PTSD, OCD, restrictive eating disorder, cutting and 1 prior suicide attempt with OD (was not evaluated) who is currently 24 weeks presenting with worsening depression and thoughts of self-harm. She feels that she has had worsening symptoms for the past month. She is G4, P3 and follows with Dr. Mariposa Mccallum. She is currently on Zoloft for her depression. She denies use of the vaginal bleeding, leakage of fluid or change in activity. Her mildly convince her to come in [facility] for further evaluation. She states that she is having worsening thoughts of self-harm but does not have an actual suicidal plan. She has been having panic attacks denies any chest pain or difficulty breathing. Does not have a psychiatrist or counselor. No other complaints or concerns reported at this time. [facility] Medical History OCD (obsessive compulsive disorder) PTSD (post-traumatic stress disorder) Major depression Vaginal delivery Family history of hearing loss at age younger than 7 years History of pre-term labor depression Anxiety Home Medications ???Medication ???Instructions ???Recorded ???Last Taken ???Type ondansetron 4 mg disintegrating 4 mg PO Q4H PRN nausea and 05/19/24 Unknown Rx tablet vomiting #60 tabs multivitamin no.47-iron fum 27 1 cap PO DAILY 06/04/24 Unknown History mg-folate no.1 1 mg-dha 300 mg capsule (PNV-DHA) docusate sodium 100 mg capsule 100 mg PO BID 06/26/24 Unknown History (Colace) famotidine 20 mg tablet (Pepcid) 20 mg PO DAILY #30 tabs 07/06/24 Unknown Rx progesterone micronized 200 mg 200 mg vaginal QHS 30 days #30 caps 07/06/24 Unknown Rx capsule (Prometrium) aspirin 81 mg capsule 81 mg PO DAILY 09/14/24 Unknown History Allergy/AdvReac Type Severity Reaction Status Date / Time No Known Allergies Allergy Verified 09/14/24 18:32 Family History Grandfather Spina bifida unconfirmed Surgical History H/O hernia repair History of cholecystectomy History of tonsillectomy Social History adopted: No household members: spouse and children housing: house number of children: 3 current occupational status: unemployed 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 current occupational exposures/hazards: No pets and animals: Yes (Avoid litterbox) pets and animals: cat(s) and dog(s) history of recent travel: Yes ([place]) out of state: Yes out of country: No sexually active: Yes Smoking Status: Never smoker alcohol intake: never substance use type: does not use well-balanced diet: daily or most days caffeine: No (occasional) eating out: rarely or never during the past year weight has: decreased > 10 lbs what type of physical activity do you participate in: walking frequency: 3-4 times per week duration: 45-60 minutes/day charlie/yarsani: Holiness seatbelt use: always do you feel safe at home: Yes additional social history: [employer]- Works for [employer] 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 [employer] ED Constitutional Constitutional ED: Denies chills or fever(s) Cardiovascular Cardiovascular: Denies chest pain Respiratory/Chest Respiratory/Chest: Reports dyspnea and other Details: Shortness of breath associated panic attacks ; Denies cough Gastrointestinal Gastrointestinal: Denies abdominal pain, nausea or vomiting Genitourinary Genitourinary ED: Reports other Details: 24 weeks Integumentary Denies rash Psychiatric Psychiatric: Reports depression and suicidal ideation; Denies suicidal thoughts EXAM Physical Exam Const Vital Signs: 09/14/24 18:31 Temperature 98.7 F Temperature Source Oral Pulse Rate 75 Respiratory Rate 16 Blood Pressure 132/81 H Blood Pressure Mean 98 Pulse Ox 98 Oxygen Delivery Method Room Air Positive well nourished and well developed General Appearance ED: well developed and NAD HEENT Reports moist mucous membranes Eyes PERRL Neck supple Resp normal respiratory effort and clear to auscultation bilaterally Cardio Rate: regular rate Rhythm: regular rhythm GI non-tender and non-distended GI Narrative: Gravid a (more content not included)... Normal [facility] ,Serum,hCG Quali.on 09-14-2024 HCG, SERUM QUAL Positive Normal [facility] Comment on above: Order Comment: if fe male and of childbearing age (8-55 years old) Result Comment: RESU LTS CALLED TO JONAS 09/14/24 Demetris8 Sayda Vega. REPORT READ BACK BY .SAME Performed By: #### L 505.5000, L100.0100, L700.6800, L501.9100, L500.2500 ####[facility] [address] [place], [address] Urine Drug Screen (VISTA)on 09-14-2024 AMPHETAMINES Negative Normal <1000 ng/mL [facility] Comment on above: Performed By: #### L 505.5000, L100.0100, L700.6800, L501.9100, L500.2500 ####[facility] [address] [place], [address] BARBITIURATES Negative Normal < 200 ng/mL [facility] Comment on above: Performed By: #### L 505.5000, L100.0100, L700.6800, L501.9100, L500.2500 ####[facility] [address] [place], [address] BENZODIAZIPINE Negative Normal < 200 ng/mL [facility] Comment on above: Performed By: #### L 505.5000, L100.0100, L700.6800, L501.9100, L500.2500 ####[facility] [address] [place], [address] COCAINE Negative Normal < 300 ng/mL [facility] Comment on above: Performed By: #### L 505.5000, L100.0100, L700.6800, L501.9100, L500.2500 ####[facility] [address] [place], [address] ECSTACY Negative Normal < 500 ng/mL [facility] Comment on above: Performed By: #### L 505.5000, L100.0100, L700.6800, L501.9100, L500.2500 ####[facility] [address] [place], [address] METHADONE Negative Normal < 300 ng/mL [facility] Comment on above: Performed By: #### L 505.5000, L100.0100, L700.6800, L501.9100, L500.2500 ####[facility] [address] [place], [address] OPIATES Negative Normal < 300 ng/mL [facility] Comment on above: Performed By: #### L 505.5000, L100.0100, L700.6800, L501.9100, L500.2500 ####[facility] [address] [place], [address] PCP Negative Normal < 25 ng/mL [facility] Comment on above: Performed By: #### L 505.5000, L100.0100, L700.6800, L501.9100, L500.2500 ####[facility] [address] [place], [address] THC Negative Normal < 50 ng/mL [facility] Comment on above: Performed By: #### L 505.5000, L100.0100, L700.6800, L501.9100, L500.2500 ####[facility] [address] [place], [address] VISTA UDS PH 6 Normal [facility] Comment on above: Performed By: #### L 505.5000, L100.0100, L700.6800, L501.9100, L500.2500 ####[facility] [address] [place], [address] CBC W/Diff, Automatedon 10-1 1-2024 Absolute Lymph 1.84 X10 3/uL Normal 0.83-4.51 [facility] Comment on above: Performed By: #### M 100.2200, L7000.1800, L7400.0353 #### [facility] [address] [place], [address] Absolute Neut 8.3 X10 3/uL High 2.0-7.7 [facility] Comment on above: Performed By: #### M 100.2200, L7000.1800, L7400.0353 #### [facility] [address] [place], [address] Basophils/100 WBC (Bld) 0.4 % Normal 0-1 [facility] Comment on above: Performed By: #### M 100.2200, L7000.1800, L7400.0353 #### [facility] [address] [place], [address] Eosinophils/100 WBC (Bld) 2.0 % Normal 0-5 [facility] Comment on above: Performed By: #### M 100.2200, L7000.1800, L7400.0353 #### [facility] [address] [place], [address] Erythrocyte distribution width (RBC) [Ratio] 13.4 % Normal 11.6-14.6 [facility] Comment on above: Performed By: #### M 100.2200, L7000.1800, L7400.0353 #### [facility] [address] [place], [address] Hematocrit (Bld) [Volume fraction] 36.9 % Low 37-47 [facility] Comment on above: Performed By: #### M 100.2200, L7000.1800, L7400.0353 #### [facility] [address] [place], [address] Hemoglobin (Bld) [Mass/Vol] 12.6 g/dL Normal 12.0-15.0 [facility] Comment on above: Performed By: #### M 100.2200, L7000.1800, L7400.0353 #### [facility] [address] [place], [address] IG% 0.400 Normal 0.0-0.9 [facility] Comment on above: Result Comment: IG% - Immature Granulocytes (promyelocytes, myelocytes and metamyelocytes) > 1% indicates that a LEFT SHIFT is Present. Performed By: #### M 100.2200, L7000.1800, L7400.0353 #### [facility] [address] [place], [address] Lymphocytes/100 WBC (Bld) 17.0 % Low 19-41 [facility] Comment on above: Performed By: #### M 100.2200, L7000.1800, L7400.0353 #### [facility] [address] [place], [address] MCH (RBC) [Entitic mass] 30.4 pg Normal 27.0-32.0 [facility] Comment on above: Performed By: #### M 100.2200, L7000.1800, L7400.0353 #### [facility] [address] [place], [address] MCHC (RBC) [Mass/Vol] 34.1 g/dL Normal 32-36 [facility] Comment on above: Performed By: #### M 100.2200, L7000.1800, L7400.0353 #### [facility] [address] [place], [address] MCV (RBC) [Entitic vol] 89.1 fL Normal 81-99 [facility] Comment on above: Performed By: #### M 100.2200, L7000.1800, L7400.0353 #### [facility] [address] [place], [address] Monocytes/100 WBC (Bld) 4.0 % Normal 0-10 [facility] Comment on above: Performed By: #### M 100.2200, L7000.1800, L7400.0353 #### [facility] [address] [place], [address] Neutrophils/100 WBC (Bld) 76.2 % High 47-70 [facility] Comment on above: Performed By: #### M 100.2200, L7000.1800, L7400.0353 #### [facility] [address] [place], [address] Nucleated RBC (Bld) [#/Vol] 0 10*3/uL Normal 0-5 [facility] Comment on above: Performed By: #### M 100.2200, L7000.1800, L7400.0353 #### [facility] [address] [place], [address] Platelet mean volume (Bld) [Entitic vol] 10.2 fL Normal 6.2-12.0 [facility] Comment on above: Performed By: #### M 100.2200, L7000.1800, L7400.0353 #### [facility] [address] [place], [address] Platelets (Bld) [#/Vol] 277 10*3/uL Normal 150-450 [facility] Comment on above: Performed By: #### M 100.2200, L7000.1800, L7400.0353 #### [facility] [address] [place], [address] RBC (Bld) [#/Vol] 4.14 10*6/uL Low 4.2-5.4 [facility] Comment on above: Performed By: #### M 100.2200, L7000.1800, L7400.0353 #### [facility] [address] [place], [address] RDW SD 43.7 fl Normal 35.1-43.9 [facility] Comment on above: Performed By: #### M 100.2200, L7000.1800, L7400.0353 #### [facility] [address] [place], [address] WBC (Bld) [#/Vol] 10.9 10*3/uL Normal 4.4-11.0 [facility] Comment on above: Performed By: #### M 100.2200, L7000.1800, L7400.0353 #### [facility] [address] [place], [address] Glucose Challenge Gest 1H 50 quentin 09-03-2024 GLU GEST 50g 1H 127 mg/dL Normal 70-140 [facility] Comment on above: Performed By: #### M 100.2200, L7000.1800, L7400.0353 #### [facility] [address] [place], [address] HIV - WCHon 09-03-2024 HIV Non-Reactive Normal Nonreactive [facility] Comment on above: Performed By: #### M 100.2200, L7000.1800, L7400.0353 #### [facility] [address] [place], [address] L509.8000on 09-03-2024 Syphilis Abs Non-Reactive Normal [facility] Comment on above: Performed By: #### M 100.2200, L7000.1800, L7400.0353 #### [facility] [address] [place], [address] [employer] Office Visit Reporton 09-02-2024 [employer] Office Visit Report [address], [address] [place] [address] OFFICE VISIT Date of Service: 09/02/24 MR#: [id number] Acct: [id number] Name: ALMA HARRELL Rep #: [id number] : 2000 Provider: TERRI reid Age/Sex: 24/F Location: [facility] [place] Status: Signed Intake Vital Signs 06/07/24 12:52 08/22/24 17:10 09/02/24 09:29 Height 5 ft 7 in 5 ft 7 in 5 ft 7 in Weight: 205 lb BMI 32.1 BP 109/76 Pulse 80 Intake Visit Reasons: 22 WK OB Chief Complaint: 22 WK OB Is patient in pain?: No Feel stressed/tense/nervous/ anxious/difficulty sleeping: not at all Allergies No Known Allergies Allergy (Verified 08/05/24 08:44) Medications ???Medication ???Instructions ???Recorded ???Confirmed ???Type ondansetron 4 mg disintegrating 4 mg PO Q4H PRN nausea and 05/19/24 09/02/24 Rx tablet vomiting #60 tabs multivitamin no.47-iron fum 27 1 cap PO DAILY 06/04/24 09/02/24 History mg-folate no.1 1 mg-dha 300 mg capsule (PNV-DHA) docusate sodium 100 mg capsule 100 mg PO BID 06/26/24 09/02/24 History (Colace) famotidine 20 mg tablet (Pepcid) 20 mg PO DAILY #30 tabs 07/06/24 09/02/24 Rx prochlorperazine maleate 10 mg 10 mg PO Q8H PRN nausea and 07/06/24 09/02/24 Rx tablet (Compazine) vomiting #90 tabs progesterone micronized 200 mg 200 mg vaginal QHS 30 days #30 caps 07/06/24 09/02/24 Rx capsule (Prometrium) Last Menstrual Period: 03/28/24 PFSH PFSH Medical History (Updated 09/02/24 @ 10:21 by Rita Chavarria NP, TERRI) OCD (obsessive compulsive disorder) PTSD (post-traumatic stress disorder) Major depression Vaginal delivery Family history of hearing loss at age younger than 7 years History of pre-term labor depression Anxiety Surgical History H/O hernia repair History of cholecystectomy History of tonsillectomy Family History Grandfather Spina bifida unconfirmed Social History adopted: No household members: spouse and children housing: house number of children: 3 current occupational status: unemployed 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 current occupational exposures/hazards: No pets and animals: Yes (Avoid litterbox) pets and animals: cat(s) and dog(s) history of recent travel: Yes ([place]) out of state: Yes out of country: No sexually active: Yes Smoking Status: Never smoker alcohol intake: never substance use type: does not use well-balanced diet: daily or most days caffeine: No (occasional) eating out: rarely or never during the past year weight has: decreased > 10 lbs what type of physical activity do you participate in: walking frequency: 3-4 times per week duration: 45-60 minutes/day charlie/yarsani: Holiness seatbelt use: always do you feel safe at home: Yes additional social history: [employer]- Works for [employer] 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 Date Name GA/Weeks Outcome Route Bth Weight Gen Labor Lgth Anesthesia Del Locatn Provider FOB 05/12/18 adaline 32 live - 4lb 7 oz Female started at 20 we eks none [facility] 09/08/19 [place] 34 live - 6.10 Female none [facility] Dr. Trav Richardson 12/20/22 [place] 35 live - 6#6oz Female epidural [facility] Jh Richardson Delivery Date: 09/08/19 Last Updated by: Delia Street transferred to [facility] HPI 22 WK OB Details: ALMA HARRELL is a 24 year old who presents for routine OB visit. OB Visit ELIJAH Calculator Estimated Delivery Date Method Current WG Current Estimate 01/02/25 LMP (Certain) 22w 4d Expected Delivery Route/Plan Labor Preferences- CB/BF classes: [] labor support person: [] labor intervention preferences: [] pain management options preferred: [] cut cord/dad catch: [] : [] PP control planned: [] discussed possible routes of delivery and associated risks: [] special requests: [] Specific Issue/Plans Covid status: [] Flu vaccine: given Tdap vaccine: [] Rhogam: [] LARC form signed: [] Problem list reviewed and updated with the most current plan of care details and appropriate orders placed. Relevant counseling for the gestational age provided. Continue routine care and follow up unless otherwise noted in visit notes/problem list details Initial Weight: Not Recorded Date -???-???-???-???-?? (more content not included)... Normal [facility] OB Triage Physician Noteon 0 08-22-2024 OB Triage Physician Note [facility] Medical Records Department [address] [place] [address] OB Triage Physician Note 08/22/241926 MR#: [id number] Acct: [id number] Name: ALMA HARRELL Rep #: [id number] : 2000 24 From: Cherelle Cid CNM PCP: THAO ElmoreC Status:REG CLI Y Location: [place] [address] HPI - General HPI Narrative ALMA HARRELL, is a 24 F who presents at 21 weeks with fall around 330pm on porch onto back/bottom. denies vaginal bleeding. had immediate cramping, however is no longer experiencing. feeling movement. Maternal Data Information ELIJAH Calculator Estimated Delivery Date Method Current WG Current Estimate 01/02/25 LMP (Certain) 21w 0d PFSH PFSH Medical History OCD (obsessive compulsive disorder) PTSD (post-traumatic stress disorder) Major depression Contraceptive management Vaginal delivery Family history of hearing loss at age younger than 7 years History of pre-term labor depression Anxiety Home Medications ???Medication ???Instructions ???Recorded ???Last Taken ???Type ondansetron 4 mg disintegrating 4 mg PO Q4H PRN nausea and 05/19/24 Unknown Rx tablet vomiting #60 tabs multivitamin no.47-iron fum 27 1 cap PO DAILY 06/04/24 Unknown History mg-folate no.1 1 mg-dha 300 mg capsule (PNV-DHA) docusate sodium 100 mg capsule 100 mg PO BID 06/26/24 Unknown History (Colace) polyethylene glycol 3350 17 17 g PO BID 06/26/24 Unknown History gram/dose oral powder (ClearLax) famotidine 20 mg tablet (Pepcid) 20 mg PO DAILY #30 tabs 07/06/24 Unknown Rx prochlorperazine maleate 10 mg 10 mg PO Q8H PRN nausea and 07/06/24 Unknown Rx tablet (Compazine) vomiting #90 tabs progesterone micronized 200 mg 200 mg vaginal QHS 30 days #30 caps 07/06/24 Unknown Rx capsule (Prometrium) sertraline 50 mg tablet (Zoloft) 50 mg PO QDAY #30 tabs 07/06/24 Unknown Rx Allergy/AdvReac Type Severity Reaction Status Date / Time No Known Allergies Allergy Verified 08/05/24 08:44 Family History Grandfather Spina bifida unconfirmed Surgical History H/O hernia repair History of cholecystectomy History of tonsillectomy Social History adopted: No household members: spouse and children housing: house number of children: 3 current occupational status: unemployed 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 current occupational exposures/hazards: No pets and animals: Yes (Avoid litterbox) pets and animals: cat(s) and dog(s) history of recent travel: Yes ([place]) out of state: Yes out of country: No sexually active: Yes Smoking Status: Never smoker alcohol intake: never substance use type: does not use well-balanced diet: daily or most days caffeine: No (occasional) eating out: rarely or never during the past year weight has: decreased > 10 lbs what type of physical activity do you participate in: walking frequency: 3-4 times per week duration: 45-60 minutes/day charlie/yarsani: Holiness seatbelt use: always do you feel safe at home: Yes additional social history: [employer]- Works for [employer] 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 Date Name GA/Weeks Outcome Route Bth Weight Gen Labor Lgth Anesthesia Del Locatn Provider FOB 05/12/18 adaline 32 live - 4lb 7 oz Female started at 20 we eks none [facility] 09/08/19 [place] 34 live - 6.10 Female none [facility] Dr. Trav Richardson 12/20/22 [place] 35 live - 6#6oz Female epidural [facility] Jh Richardson Delivery Date: 09/08/19 Last Updated by: Delia Street transferred to [facility] Visit Details Expected Delivery Route/Plan Labor Preferences- CB/BF classes: [] labor support person: [] labor intervention preferences: [] pain management options preferred: [] cut cord/dad catch: [] : [] PP control planned: [] discussed possible routes of delivery and associated risks: [] special requests: [] Plans Covid status: [] Flu vaccine: [] Tdap vaccine: [] Rhogam: [] LARC form signed: [] Problem list reviewed and updated with the most current plan of care details and appropriate orders placed. Relevant counseling for the gestational age provided. Continue routine care and follow up unless otherwise noted in visit notes/problem list details OB Flowsheet Initial Weight: No (more content not included)... Normal [facility] Oil Transport Driver Office Visit Reporton 08-05-2024 Oil Transport Driver Office Visit Report [facility] [address], [address] [place] [address] OFFICE VISIT Date of Service: 08/05/24 MR#: [id number] Acct: [id number] Name: ALMA HARRELL Rep #: [id number] : 2000 Provider: Dr. Zakia Lemus, Age/Sex: 24/F Location: [facility] Status: Signed Intake Vital Signs 06/07/24 12:52 07/06/24 14:12 08/05/24 08:44 08/05/24 08:46 Height 5 ft 7 in 5 ft 7 in 5 ft 7 in 5 ft 7 in Weight: 200 lb 4 oz BMI 31.4 BP 108/74 Intake Visit Reasons: 18 WK OB Players Club Representative Required: No Is patient in pain?: No Allergies No Known Allergies Allergy (Verified 08/05/24 08:44) Medications ???Medication ???Instructions ???Recorded ???Confirmed ???Type ondansetron 4 mg disintegrating 4 mg PO Q4H PRN nausea and 05/19/24 08/05/24 Rx tablet vomiting #60 tabs multivitamin no.47-iron fum 27 1 cap PO DAILY 06/04/24 08/05/24 History mg-folate no.1 1 mg-dha 300 mg capsule (PNV-DHA) docusate sodium 100 mg capsule 100 mg PO BID 06/26/24 08/05/24 History (Colace) polyethylene glycol 3350 17 17 g PO BID 06/26/24 08/05/24 History gram/dose oral powder (ClearLax) famotidine 20 mg tablet (Pepcid) 20 mg PO DAILY #30 tabs 07/06/24 08/05/24 Rx prochlorperazine maleate 10 mg 10 mg PO Q8H PRN nausea and 07/06/24 08/05/24 Rx tablet (Compazine) vomiting #90 tabs progesterone micronized 200 mg 200 mg vaginal QHS 30 days #30 caps 07/06/24 08/05/24 Rx capsule (Prometrium) sertraline 50 mg tablet (Zoloft) 50 mg PO QDAY #30 tabs 07/06/24 08/05/24 Rx Last Menstrual Period: 03/28/24 Zika: Zika virus screening: Negative : No PFSH PFSH Medical History OCD (obsessive compulsive disorder) PTSD (post-traumatic stress disorder) Major depression Contraceptive management Vaginal delivery Family history of hearing loss at age younger than 7 years History of pre-term labor depression Anxiety Surgical History H/O hernia repair History of cholecystectomy History of tonsillectomy Family History Grandfather Spina bifida unconfirmed Social History adopted: No household members: spouse and children housing: house number of children: 3 current occupational status: unemployed 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 current occupational exposures/hazards: No pets and animals: Yes (Avoid litterbox) pets and animals: cat(s) and dog(s) history of recent travel: Yes ([place]) out of state: Yes out of country: No sexually active: Yes Smoking Status: Never smoker alcohol intake: never substance use type: does not use well-balanced diet: daily or most days caffeine: No (occasional) eating out: rarely or never during the past year weight has: decreased > 10 lbs what type of physical activity do you participate in: walking frequency: 3-4 times per week duration: 45-60 minutes/day charlie/yarsani: Holiness seatbelt use: always do you feel safe at home: Yes additional social history: Dagoberto- Works for [employer] 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 Date Name GA/Weeks Outcome Route Bth Weight Gen Labor Lgth Anesthesia Del Locatn Provider FOB 05/12/18 adaline 32 live - 4lb 7 oz Female started at 20 we eks none [facility] 09/08/19 [place] 34 live - 6.10 Female none [facility] Dr. Trav Richardson 12/20/22 [place] 35 live - 6#6oz Female epidural [facility] Jh Richardson Delivery Date: 09/08/19 Last Updated by: Delia Street transferred to [facility] HPI 18 WK OB Details: ALMA HARRELL is a 24 year old who presents for routine OB visit. OB Visit ELIJAH Calculator Estimated Delivery Date Method Current WG Current Estimate 01/02/25 LMP (Certain) 18w 4d Expected Delivery Route/Plan Labor Preferences- CB/BF classes: [] labor support person: [] labor intervention preferences: [] pain management options preferred: [] cut cord/dad catch: [] : [] PP control planned: [] discussed possible routes of delivery and associated risks: [] special requests: [] Specific Issue/Plans Covid status: [] Flu vaccine: [] Tdap vaccine: [] Rhogam: [] LARC form signed: [] Problem list reviewed and updated with the most current plan of care details and appropriate orders placed. Relevant (more content not included)... Normal [facility] Oil Transport Driver Office Visit Reporton 07-06-2024 Oil Transport Driver Office Visit Report [facility] [address], [address] [place] [address] OFFICE VISIT Date of Service: 07/06/24 MR#: [id number] Acct: [id number] Name: ALMA HARRELL Rep #: [id number] : 2000 Provider: Dr. Rosalba hickey MD Age/Sex: 24/F Location: [facility] Status: Signed Intake Vital Signs 10/20/23 07:03 06/26/24 17:56 07/06/24 14:10 07/06/24 14:12 Height 5 ft 7 in 5 ft 7 in 5 ft 7 in 5 ft 7 in Weight: 201 lb BMI 31.4 BP 113/76 Intake Visit Reasons: 14wk OB [employer] Representative Required: No Is patient in pain?: No Allergies No Known Allergies Allergy (Verified 07/06/24 14:11) Last Menstrual Period: 03/28/24 Zika: Zika virus screening: Negative : No Have you fallen in the past year?: No PFSH PFSH Medical History OCD (obsessive compulsive disorder) PTSD (post-traumatic stress disorder) Major depression Contraceptive management Vaginal delivery Family history of hearing loss at age younger than 7 years History of pre-term labor depression Anxiety Surgical History H/O hernia repair History of cholecystectomy History of tonsillectomy Family History Grandfather Spina bifida unconfirmed Social History adopted: No household members: spouse and children housing: house number of children: 3 current occupational status: unemployed 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 current occupational exposures/hazards: No pets and animals: Yes (Avoid litterbox) pets and animals: cat(s) and dog(s) history of recent travel: Yes ([place]) out of state: Yes out of country: No sexually active: Yes Smoking Status: Never smoker alcohol intake: never substance use type: does not use well-balanced diet: daily or most days caffeine: No (occasional) eating out: rarely or never during the past year weight has: decreased > 10 lbs what type of physical activity do you participate in: walking frequency: 3-4 times per week duration: 45-60 minutes/day charlie/yarsani: Holiness seatbelt use: always do you feel safe at home: Yes additional social history: Dagoberto- Works for [employer] 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 Date Name GA/Weeks Outcome Route Bth Weight Infant Gen Labor Lgth Anesthesia Del Locatn Provider FOB 05/12/18 adaline 32 live - 4lb 7 oz Female started at 20 we eks none [facility] 09/08/19 [place] 34 live - 6.10 Female none [facility] Dr. Trav Richardson 12/20/22 [place] 35 live - 6#6oz Female epidural [facility] Jh Richardson Delivery Date: 09/08/19 Last Updated by: Delia Street transferred to [facility] HPI 14wk OB Details: ALMA HARRELL is a 24 year old who presents for routine OB visit. OB Visit ELIJAH Calculator Estimated Delivery Date Method Current WG Current Estimate 01/02/25 LMP (Certain) 14w 2d Expected Delivery Route/Plan Labor Preferences- CB/BF classes: [] labor support person: [] labor intervention preferences: [] pain management options preferred: [] cut cord/dad catch: [] : [] PP control planned: [] discussed possible routes of delivery and associated risks: [] special requests: [] Specific Issue/Plans Covid status: [] Flu vaccine: [] Tdap vaccine: [] Rhogam: [] LARC form signed: [] Problem list reviewed and updated with the most current plan of care details and appropriate orders placed. Relevant counseling for the gestational age provided. Continue routine care and follow up unless otherwise noted in visit notes/problem list details Initial Weight: Not Recorded Date -???-???-???-???-???-?? ?-???-???-???-???-???-? ??- EGA Weight BP Urine Prot -???-???-???-???-???-?? ?-???-???-???-???-???-? ??- Glucose FHR FuHt Pres Dilation -???-???-???-???-???-?? ?-???-???-???-???-???-? ??- Effaced St Visit Note 06/07/24 -???-???-???-???-???-?? ?-???-???-???-???-???-? ??- 10w 1d 208 lb 4 oz 122/74 -???-???-???-???-???-?? ?-???-???-???-???-???-? ??- 157 -???-???-???-???-???-?? ?-???-???-???-???-???-? ??- KW-CRL 37mm. accepts NIPT. MFM consult for hx of x 3. 07/06/24 -???-???-???-???-???-?? ?-???-???-???-???-???-? ??- 14w 2d 201 lb 113/76 Negative -???-???-???-???-???-?? ?-???-???-???-???-???-? ??- Negative 150 -???-???-???-???-???-?? ?-???-???-? (more content not included)... Normal [facility] Progress Noteon 06-29-2024 Slab Depiler Operator Authentication Interface Message Text Maternal Medicine Consult Date of Service: 06/29/2024 Referring Provider: Rosalba Edwards Primary Care Provider: [facility], MD Wilian Reason for Consult: Dr. Rosalba Edwards requests that Alma be evaluated due to history of labor x 3. HPI: Alma is a 24 y.o. at 13w3d gestation who presents for evaluation of The patient has history of spontaneous deliveries x 3: In 2017 she had a 32 week delivery and PPROM and the baby has CP In 2018 she had a 34 week delivery. She had progesterone therapy. In 2022 she had a 35 week delivery with progesterone therapy. OB History Para Term AB Living 4 3 0 3 0 3 SAB IAB Ectopic Multiple Live Births 0 0 0 0 3 # Outcome Date GA Lbr Joe/2nd Weight Sex Type Anes PTL Lv 4 Current 3 12/20/22 35w0d 2.892 kg F Vag-Spont EPI Y HUDSON 2 09/08/19 34w0d 3.005 kg F Vag-Spont None Y HUDSON 1 05/12/18 32w0d 2.013 kg F Vag-Spont None HUDSON Comments: Cervical funneling at 20w, possible infection, baby with cerebral palsy Past Medical History: Diagnosis Date Chronic constipation Self managed with OTC meds Environmental allergies History of depression Major depression OCD (obsessive compulsive disorder) Positive CASSANDRA (antinuclear antibody) PTSD (post-traumatic stress disorder) Past Surgical History: Procedure Laterality Date CHOLECYSTECTOMY TONSILLECTOMY 2019 No Known Allergies Social History Socioeconomic History Marital status: Spouse name: None Number of children: None Years of education: None Highest education level: None Tobacco Use Smoking status: Never Smokeless tobacco: Never Substance and Sexual Activity Alcohol use: Not Currently Drug use: Never Infections Live with someone with or exposed to TB No History of STI's None Rash or viral illness since last menstruation No 2nd STI GBS No 3rd STI Hx of Chicken Pox No had vaccine Other infections No Partner has hx of genital herpes No Genetics Age is > than 35y as of estimated date No Thalassemia No Neural Tube Defect Yes paternal grandfather with spina bifida Congenital Heart Defect No Down Syndrome No Caleb-Sachs No Krystal Disease No Sickle Cell Disease or Trait No Hemophilia, Thrombophilia No Muscular Dystrophy No Cystic Fibrosis No Maury's Chorea No Intellectual Disability/Autism Yes pt's first child with cerebral palsy Metabolic Disorder No Recurrent Loss, or a Stillbirth No Inherited Genetic or Chromosomal Disorder No Illicit; Rec.drugs; Alcohol since last menses No Family History Problem Relation Age of Onset Other Mother allergies Fainting Mother Migraines Mother Other Brother allergies Hearing Loss Brother Asthma Maternal Grandmother Obstructive Sleep Apnea Maternal Grandmother Hypertension Maternal Grandmother Spina Bifida Paternal Grandfather Outpatient Encounter Medications as of 06/29/2024 Medication Sig Dispense Refill ondansetron (ZOFRAN-ODT) 4 MG disintegrating tablet TAKE 1 TABLET BY MOUTH EVERY 4 HOURS NEEDED FOR NAUSEA AND VOMITING MV-Min-Fe Fum-FA-DHA ( 1 PO) [DISCONTINUED] JONAH 275 MG/1.1ML SOAJ Injection omeprazole (PRILOSEC) 20 MG capsule TAKE 1 CAPSULE EVERY DAY 30 Cap 3 [DISCONTINUED] Bisacodyl (DULCOLAX PO) Take by mouth daily. [DISCONTINUED] dicyclomine (BENTYL) 10 MG capsule Take 20 mg by mouth 3 times daily. dicyclomine (BENTYL) 10 MG capsule Take 2 Caps by mouth 3 times daily. 180 Cap 5 [DISCONTINUED] Magnesium 250 MG TABS Take by mouth daily. [DISCONTINUED] Linaclotide (LINZESS PO) Take by mouth. [DISCONTINUED] Estradiol Valerate-Dienogest 3/2-2/2-3/1 MG TABS Take 3 mg by mouth daily. [DISCONTINUED] Lactobacillus (ACIDOPHILUS PO) Take by mouth daily. [DISCONTINUED] fluticasone (FLONASE) 50 MCG/ACT nasal spray 2 Sprays by Each Nare route daily. VENTOLIN HFA 108 (90 BASE) MCG/ACT inhaler Inhale 2 Puffs into the lungs every 6 hours as needed for Wheezing or Cough. 1 Inhaler 12 [DISCONTINUED] montelukast (SINGULAIR) 10 MG tablet Take by mouth daily. [DISCONTINUED] cetirizine (ZYRTEC) 10 MG tablet Take 10 mg by mouth daily. [DISCONTINUED] albuterol (VENTOLIN HFA) 108 (90 BASE) MCG/ACT inhaler Inhale 2 Puffs into the lungs every 6 hours as needed. No facility-administered encounter medications on file as of 06/29/2024. Review of Systems Constitutional: Negative. HENT: Negative. Eyes: Negative. Respiratory: Negative. Cardiovascular: Negative. Gastrointestinal: Negative. Genitourinary: Negative. Musculoskeletal: Negative. Skin: Negative. Neurological: Negative. Endo/Heme/Allergies: Negative. Psychiatric/Behavioral: Negative. PHYSICAL EXAM: BP 119/73 Pulse 66 Resp 18 Ht 170.2 cm Wt 91.3 kg (201 lb 3.2 oz) LMP 03/28/2024 SpO2 98% BMI 31.51 kg/m Constitutional: General: She is active. HENT: Head: Atraumatic. Ey (more content not included)... Normal [facility] Emergency Department Summary on 06-26-2024 Emergency Department Summary [facility] Medical Records Department [address] [place] [id number] Emergency Department Summary 06/26/24 MR#: [id number] Acct: [id number] Name: ALMA HARRELL Rep #: [id number] : 2000 24 From: Rodrick Freire DO PCP: TERRI Elmore Status:DEP ER Location: ED HPI HPI - GI History of Present Illness Chief Complaint: Constipation Detail of Chief Complaint: Constipation Informant: patient Narrative Narrative: Patient presents the emergency department complaint constipation. Patient states that she has not had a good bowel movement in about a month. She has had some small bowel movements and had 1 earlier today that was soft. She is been taking MiraLAX daily as well as Colace and she is try glycerin suppositories. Patient had problems with constipation in the past and she is currently 13 weeks . With her second she required soapsuds enemas which really seem to help her. She is here basically requesting a soapsuds enema. Patient denies any fevers. She denies significant abdominal discomfort. She denies urinary symptoms. PFSH [facility] Medical History OCD (obsessive compulsive disorder) PTSD (post-traumatic stress disorder) Major depression Contraceptive management Vaginal delivery Family history of hearing loss at age younger than 7 years History of pre-term labor depression Anxiety Home Medications ???Medication ???Instructions ???Recorded ???Last Taken ???Type ondansetron 4 mg disintegrating 4 mg PO Q4H PRN nausea and 05/19/24 Unknown Rx tablet vomiting #60 tabs multivitamin no.47-iron fum 27 1 cap PO DAILY 06/04/24 Unknown History mg-folate no.1 1 mg-dha 300 mg capsule (PNV-DHA) docusate sodium 100 mg capsule 100 mg PO BID 06/26/24 Unknown History (Colace) polyethylene glycol 3350 17 17 g PO BID 06/26/24 Unknown History gram/dose oral powder (ClearLax) Allergy/AdvReac Type Severity Reaction Status Date / Time No Known Allergies Allergy Verified 06/07/24 12:50 Family History Grandfather Spina bifida unconfirmed Surgical History H/O hernia repair History of cholecystectomy History of tonsillectomy Social History adopted: No household members: spouse and children housing: house number of children: 3 current occupational status: unemployed 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 current occupational exposures/hazards: No pets and animals: Yes (Avoid litterbox) pets and animals: cat(s) and dog(s) history of recent travel: Yes ([place]) out of state: Yes out of country: No sexually active: Yes Smoking Status: Never smoker alcohol intake: never substance use type: does not use well-balanced diet: daily or most days caffeine: No (occasional) eating out: rarely or never during the past year weight has: decreased > 10 lbs what type of physical activity do you participate in: walking frequency: 3-4 times per week duration: 45-60 minutes/day charlie/yarsani: Holiness seatbelt use: always do you feel safe at home: Yes additional social history: 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 ROS ROS ED Review of Systems ROS Unobtainable: other Constitutional Constitutional ED: Reports lethargy; Denies chills, fever(s), sweats or weight loss Eyes Eyes: Denies blurry vision, change in vision or diplopia ENT ENT ED: Denies rhinorrhea or sore throat Cardiovascular Cardiovascular: Denies chest pain, orthopnea or racing heartbeat Respiratory/Chest Respiratory/Chest: Denies cough, dyspnea, dyspnea on exertion, orthopnea or sputum Gastrointestinal Gastrointestinal: Reports constipation; Denies abdominal pain, diarrhea, nausea or vomiting Genitourinary Genitourinary ED: Denies dysuria, hematuria or urinary frequency Musculoskeletal Musculoskeletal: Denies arthralgias, back pain, myalgias or neck pain Integumentary Denies abscess, Abrasions or rash Neurologic Neurologic: Denies headache(s) or weakness Psychiatric Psychiatric: Denies anxiety, depression or suicidal thoughts Endocrine Endocrinology: Denies polydipsia, polyphagia or polyuria Hematologic/Lymphatic Hematologic/Lymphatic: Denies easy bleeding, easy bruising or lymphadenopathy Allergic/Immunologic Allergic/Immunologic ED: Denies mouth swelling, tongue swelling or urticaria EXAM Physical Exam Const Vital Signs: 06/26/24 17:56 Temperature 96.2 F L Temperature Source Temporal Pulse Rate 87 Respiratory Rate 16 Blood Pressure 117/72 Blood Pressure Mean 87 Pulse Ox 99 Oxygen Delivery Method Room Air Po (more content not included)... Normal [facility] Urinalysis, Completeon 06-26 EPI,SQUAMOUS 0-5 SEEN Normal 5-10 [facility] Comment on above: Order Comment: CLEAN CATCH Performed By: #### L 400.0001 ####[facility] [id number] [place], [address] WBC 0-5 SEEN Normal 0-5 [facility] Comment on above: Order Comment: CLEAN CATCH Performed By: #### L 400.0001 ####[facility] [id number] [place], [address] BACTERIA 0 SEEN Normal None Seen [facility] Comment on above: Order Comment: CLEAN CATCH Performed By: #### L 400.0001 ####[facility] [id number] [place], [address] Mucus Ql (Urine sed) 0 SEEN Normal [facility] Comment on above: Order Comment: CLEAN CATCH Performed By: #### L 400.0001 ####[facility] [id number] [place], [address] RBC 0 SEEN Normal 0-5 [facility] Comment on above: Order Comment: CLEAN CATCH Performed By: #### L 400.0001 ####[facility] [id number] [place], [address] XR ANKLE AND FOOT 6 VIEWS RI Ton 06-14-2024 XR ANKLE AND FOOT 6 VIEWS RIGHT ORIGINAL EXAMINATION: 6 XRAY VIEWS OF THE RIGHT FOOT AND ANKLE06/14/2024 8:39 am COMPARISON: None HISTORY: ORDERING SYSTEM PROVIDED HISTORY: Reason for Exam: pain FINDINGS: The ankle mortise and talar dome are intact. There is no acute fracture or dislocation. There is no significant soft tissue swelling. There is no radiopaque foreign body. The articulations are intact. IMPRESSION: No acute fracture or dislocation. Interpreted by: Garcia Welch DO Preliminary Report By: Garcia Welch DO Electronically signed By Garcia Welch DO Dictated Date: 06/14/2024 8:46:37 AM Prelim Date: 06/14/2024 8:49:24 AM Sign Date: 06/14/2024 8:49:24 AM Ordering Provider: SHAVONNE Swenson [facility] ([place]) PAP I-G w/rfx hrHPV-Aptimaon 06-11-2024 ADEQ Comment Normal . [facility] Comment on above: Order Comment: Speci men Comment: [id number] Specimen Comment: Source.............Cervix Specimen Comment: LMP / Prev Treat...[id number] Specimen Comment: Other.............. Specimen Comment: No. of containers..01 ThinPrep Vial Result Comment: Sati sfactory for evaluation. Endocervical and/or squamous metaplastic cells (endocervical component) are present. Performed By: #### M 100.2200, L7000.1800, L7400.0353 #### [facility] [address] [place], [place], [address] COMM . Normal . [facility] Comment on above: Order Comment: Speci men Comment: [id number] Specimen Comment: Source.............Cervix Specimen Comment: LMP / Prev Treat...[id number] Specimen Comment: Other.............. Specimen Comment: No. of containers..01 ThinPrep Vial Performed By: #### M 100.2200, L7000.1800, L7400.0353 #### [facility] [address] [place], [place], [id number] COMMENT Comment Normal . [facility] Comment on above: Order Comment: Speci men Comment: [id number] Specimen Comment: Source.............Cervix Specimen Comment: LMP / Prev Treat...[id number] Specimen Comment: Other.............. Specimen Comment: No. of containers..01 ThinPrep Vial Result Comment: This liquid based ThinPrep(R) pap test was screened with the use of an image guided system. Performed By: #### M 100.2200, L7000.1800, L7400.0353 #### [facility] [address] [place], [place], [id number] DIAG Comment Normal . [facility] Comment on above: Order Comment: Speci men Comment: [id number] Specimen Comment: Source.............Cervix Specimen Comment: LMP / Prev Treat...[id number] Specimen Comment: Other.............. Specimen Comment: No. of containers..01 ThinPrep Vial Result Comment: NEGA TIVE FOR INTRAEPITHELIAL LESION OR MALIGNANCY. Performed By: #### M 100.2200, L7000.1800, L7400.0353 #### [facility] [address] [place], [place], [address] HPV RFLX Comment Normal . [facility] Comment on above: Order Comment: Speci men Comment: [id number] Specimen Comment: Source.............Cervix Specimen Comment: LMP / Prev Treat...[id number] Specimen Comment: Other.............. Specimen Comment: No. of containers..01 ThinPrep Vial Result Comment: The HPV DNA reflex criteria were not met with this specimen result therefore, no HPV testing was performed. Performed at: [facility] [address] [place] [id number] Funeral Service Practitioner/Embalmer: Rashaun Damico MD, Phone: [phone] Performed at: - [address] [id number] Funeral Service Practitioner/Embalmer: Sondra Burnette MD, Phone: [phone] Performed By: #### M 100.2200, L7000.1800, L7400.0353 #### [facility] [address] [place], [place], [id number] PAPSMR Comment Normal . [facility] Comment on above: Order Comment: Speci men Comment: [id number] Specimen Comment: Source.............Cervix Specimen Comment: LMP / Prev Treat...[id number] Specimen Comment: Other.............. Specimen Comment: No. of containers..01 ThinPrep Vial Result Comment: The Pap smear is a screening test designed to aid in the detection of premalignant and malignant conditions of the uterine cervix. It is not a diagnostic procedure and should not be used as the sole means of detecting cervical cancer. Both false-positive and false-negative reports do occur. Performed By: #### M 100.2200, L7000.1800, L7400.0353 #### [facility] [address] [place], [place], [address] PERFORM Comment Normal . [facility] Comment on above: Order Comment: Speci men Comment: [id number] Specimen Comment: Source.............Cervix Specimen Comment: LMP / Prev Treat...[id number] Specimen Comment: Other.............. Specimen Comment: No. of containers..01 ThinPrep Vial Result Comment: Sharlene Aguilar, Secretary To Board Of Commissioners (ASCP) Performed By: #### M 100.2200, L7000.1800, L7400.0353 #### [facility] [address] [place], [address] Chlamydia/GC KATEY aptimaon CHLAMY,NUC ACID Negative Normal Negative [facility] Comment on above: Performed By: #### M 100.2200, L7000.1800, L7400.0353 #### [facility] [address] [place], [place], [address] GC BY NUC ACID Negative Normal Negative [facility] Comment on above: Result Comment: Perf ormed at: =G - [facility] [address] [id number] Funeral Service Practitioner/Embalmer: Sondra Burnette MD, Phone: [phone] Performed By: #### M 100.2200, L7000.1800, L7400.0353 #### [facility] [address] [place], [address] Urine Cultureon 06-09-2024 [facility] Mixed Gram Positive Organisms Webster Count 50,000-80,000 MIXC Mixed contaminants. Submit a new specimen if indicated. Normal [facility] Comment on above: Performed By: #### M 100.2200, L7000.1800, L7400.0353 #### [facility] [address] [place], [address] CBC W/Diff, Automatedon 07-11 28-2023 Absolute Lymph 2.19 X10 3/uL Normal 0.83-4.51 [facility] Comment on above: Performed By: #### M 100.2200, L7000.1800, L7400.0353 #### [facility] [address] [place], [address] Absolute Neut 8.1 X10 3/uL High 2.0-7.7 [facility] Comment on above: Performed By: #### M 100.2200, L7000.1800, L7400.0353 #### [facility] [address] [place], [address] Basophils/100 WBC (Bld) 0.5 % Normal 0-1 [facility] Comment on above: Performed By: #### M 100.2200, L7000.1800, L7400.0353 #### [facility] [address] [place], [address] Eosinophils/100 WBC (Bld) 3.6 % Normal 0-5 [facility] Comment on above: Performed By: #### M 100.2200, L7000.1800, L7400.0353 #### [facility] [address] [place], [address] Erythrocyte distribution width (RBC) [Ratio] 14.0 % Normal 11.6-14.6 [facility] Comment on above: Performed By: #### M 100.2200, L7000.1800, L7400.0353 #### [facility] [address] [place], [address] Hematocrit (Bld) [Volume fraction] 38.7 % Normal 37-47 [facility] Comment on above: Performed By: #### M 100.2200, L7000.1800, L7400.0353 #### [facility] [address] [place], [address] Hemoglobin (Bld) [Mass/Vol] 13.3 g/dL Normal 12.0-15.0 [facility] Comment on above: Performed By: #### M 100.2200, L7000.1800, L7400.0353 #### [facility] [address] [place], [address] IG% 0.300 Normal 0.0-0.9 [facility] Comment on above: Result Comment: IG% - Immature Granulocytes (promyelocytes, myelocytes and metamyelocytes) > 1% indicates that a LEFT SHIFT is Present. Performed By: #### M 100.2200, L7000.1800, L7400.0353 #### [facility] [address] [place], [address] Lymphocytes/100 WBC (Bld) 19.0 % Normal 19-41 [facility] Comment on above: Performed By: #### M 100.2200, L7000.1800, L7400.0353 #### [facility] [address] [place], [address] MCH (RBC) [Entitic mass] 28.7 pg Normal 27.0-32.0 [facility] Comment on above: Performed By: #### M 100.2200, L7000.1800, L7400.0353 #### [facility] [address] [place], [address] MCHC (RBC) [Mass/Vol] 34.4 g/dL Normal 32-36 [facility] Comment on above: Performed By: #### M 100.2200, L7000.1800, L7400.0353 #### [facility] [address] [place], [address] MCV (RBC) [Entitic vol] 83.4 fL Normal 81-99 [facility] Comment on above: Performed By: #### M 100.2200, L7000.1800, L7400.0353 #### [facility] [address] [place], [address] Monocytes/100 WBC (Bld) 6.4 % Normal 0-10 [facility] Comment on above: Performed By: #### M 100.2200, L7000.1800, L7400.0353 #### [facility] [address] [place], [address] Neutrophils/100 WBC (Bld) 70.2 % High 47-70 [facility] Comment on above: Performed By: #### M 100.2200, L7000.1800, L7400.0353 #### [facility] [address] [place], [address] Nucleated RBC (Bld) [#/Vol] 0 10*3/uL Normal 0-5 [facility] Comment on above: Performed By: #### M 100.2200, L7000.1800, L7400.0353 #### [facility] [address] [place], [address] Platelet mean volume (Bld) [Entitic vol] 9.8 fL Normal 6.2-12.0 [facility] Comment on above: Performed By: #### M 100.2200, L7000.1800, L7400.0353 #### [facility] [address] [place], [address] Platelets (Bld) [#/Vol] 333 10*3/uL Normal 150-450 [facility] Comment on above: Performed By: #### M 100.2200, L7000.1800, L7400.0353 #### [facility] [address] [place], [address] RBC (Bld) [#/Vol] 4.64 10*6/uL Normal 4.2-5.4 [facility] Comment on above: Performed By: #### M 100.2200, L7000.1800, L7400.0353 #### [facility] [address] [place], [address] RDW SD 42.6 fl Normal 35.1-43.9 [facility] Comment on above: Performed By: #### M 100.2200, L7000.1800, L7400.0353 #### [facility] [address] [place], [address] WBC (Bld) [#/Vol] 11.5 10*3/uL High 4.4-11.0 [facility] Comment on above: Performed By: #### M 100.2200, L7000.1800, L7400.0353 #### [facility] [address] [place], [address] HIV - WCHon 06-07-2024 HIV Non-Reactive Normal Nonreactive [facility] Comment on above: Order Comment: Reaso n for Exam: Performed By: #### M 100.2200, L7000.1800, L7400.0353 #### [facility] [address] [place], [address] Hemoglobin A1con 06-07-2024 HbA1c (Bld) [Mass fraction] 4.8 % Normal 3.8-5.6 [facility] Comment on above: Result Comment: Norm al < 5.7 % Prediabetic 5.7 - 6.4 % Diabetic >or= 6.5 % Please note range changes. Performed By: #### M 100.2200, L7000.1800, L7400.0353 #### [facility] [address] [place], [address] Hepatitis B Surface Antigeno n 06-07-2024 HEP B Surf Ag Non-Reactive Normal Nonreactive [facility] Comment on above: Order Comment: Reaso n for Exam: Performed By: #### M 100.2200, L7000.1800, L7400.0353 #### [facility] [address] [place], [address] Hepatitis C Antibodyon 06-07 Hepatitis C AB Non-Reactive Normal Nonreactive [facility] Comment on above: Order Comment: Reaso n for Exam: Result Comment: Non Reactive: < 0.8 Equivocal: >/= 0.8 to < 1.0 Reactive: >/= 1.0 The [facility] [place] requires that a reactive/equivocal HCV antibody result be sent out for confirmation. HCV Quant by PCR testing. Performed By: #### M 100.2200, L7000.1800, L7400.0353 #### [facility] [address] [place], [address] L509.8000on 06-07-2024 Syphilis Abs Non-Reactive Normal [facility] Comment on above: Order Comment: Reaso n for Exam: Performed By: #### M 100.2200, L7000.1800, L7400.0353 #### [facility] [address] [place], [address] NATERAon 06-07-2024 NATURA SEE SCANNED REPORT Normal [facility] Comment on above: Order Comment: Comme nts: NIPT only Performed By: #### M 100.2200, L7000.1800, L7400.0353 #### [facility] [address] [place], [address] Oil Transport Driver Office Visit Reporton 06-07-2024 Oil [employer] Driver Office Visit Report [facility] [address] [place] [address] OFFICE VISIT Date of Service: 06/07/24 MR#: [id number] Acct: [id number] Name: ALMA HARRELL Rep #: [id number] : 2000 Provider: MELITON Galarza ams Age/Sex: 24/F Location: [facility] [place] Status: Signed Intake Vital Signs 10/20/23 07:03 06/07/24 12:51 06/07/24 12:52 Height 5 ft 7 in 5 ft 7 in 5 ft 7 in Weight: 208 lb 4 oz BMI 32.5 BP 122/74 H Intake Visit Reasons: NOB LMP 03/28 [employer] Representative Required: No Is patient in pain?: No Allergies No Known Allergies Allergy (Verified 06/07/24 12:50) Medications ???Medication ???Instructions ???Recorded ???Confirmed ???Type ondansetron 4 mg disintegrating 4 mg PO Q4H PRN nausea and 05/19/24 06/07/24 Rx tablet vomiting #60 tabs multivitamin no.47-iron fum 27 cap PO 06/04/24 06/07/24 History mg-folate no.1 1 mg-dha 300 mg capsule (PNV-DHA) Last Menstrual Period: 03/28/24 : No PFSH PFSH Medical History OCD (obsessive compulsive disorder) PTSD (post-traumatic stress disorder) Major depression Contraceptive management Vaginal delivery Family history of hearing loss at age younger than 7 years History of pre-term labor depression Anxiety Surgical History H/O hernia repair History of cholecystectomy History of tonsillectomy Family History Grandfather Spina bifida unconfirmed Social History adopted: No household members: spouse and children housing: house number of children: 3 current occupational status: unemployed 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 current occupational exposures/hazards: No pets and animals: Yes (Avoid litterbox) pets and animals: cat(s) and dog(s) history of recent travel: Yes ([place]) out of state: Yes out of country: No sexually active: Yes Smoking Status: Never smoker alcohol intake: never substance use type: does not use well-balanced diet: daily or most days caffeine: No (occasional) eating out: rarely or never during the past year weight has: decreased > 10 lbs what type of physical activity do you participate in: walking frequency: 3-4 times per week duration: 45-60 minutes/day charlie/yarsani: Holiness seatbelt use: always do you feel safe at home: Yes additional social history: Dagoberto- Works for [employer] 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 Date Name GA/Weeks Outcome Route Bth Weight Infant Gen Labor Lgth Anesthesia Del Locatn Provider FOB 05/12/18 adaline 32 live - 4lb 7 oz Female started at 20 we eks none [facility] 09/08/19 [place] 34 live - 6.10 Female none [facility] Dr. Trav Richardson 12/20/22 [place] 35 live - 6#6oz Female epidural [facility] Jh Richardson Delivery Date: 09/08/19 Last Updated by: Delia Street transferred to [facility] NOB LMP 03/28 Details: ALMA HARRELL is a 24 year old who presents for New OB visit. OB Visit ELIJAH Calculator Estimated Delivery Date Method Current Current Estimate 01/02/25 LMP (Certain) 10w 1d Comments: HIV: Urine Culture: Sequential Screen: NIPT Screen: Estimated Due Date: 01/02/25 Expected Delivery Route/Plan Labor Preferences- CB/BF classes: [] labor support person: [] labor intervention preferences: [] pain management options preferred: [] cut cord/dad catch: [] : [] PP control planned: [] discussed possible routes of delivery and associated risks: [] special requests: [] Specific Issue/Plans Covid status: [] Flu vaccine: [] Tdap vaccine: [] Rhogam: [] LARC form signed: [] Problem list reviewed and updated with the most current plan of care details and appropriate orders placed. Relevant counseling for the gestational age provided. Continue routine care and follow up unless otherwise noted in visit notes/problem list details Initial Weight: Not Recorded Date -???-???-???-???-???-?? ?-???-???-???-???-???-? ??- EGA Weight BP Urine Prot -???-???-???-???-???-?? ?-???-???-???-???-???-? ??- Glucose FHR FuHt Pres Dilation -???-???-???-???-???-?? ?-???-???-???-???-???-? ??- Effaced St Visit Note 06/07/24 -???-???-???-???-???-?? ?-???-???-???-???-???-? ??- 10w 1d 208 lb 4 oz 122/74 -???-???- (more content not included)... Normal [facility] Rubella IgGon 06-07-2024 Rubella IgG Reactive Normal Nonreactive [facility] Comment on above: Order Comment: Reaso n for Exam: Result Comment: Anti body Results Interpretation of Immune Status Non Reactive Presumed Non-Immune Equivocal Equivocal Reactive Presumed Immune Performed By: #### M 100.2200, L7000.1800, L7400.0353 #### [facility] [address] [place], [address] Type AND Screenon 06-07-2024 Ab SCREEN GEL Negative Normal [facility] Comment on above: Order Comment: PN Performed By: #### M 100.2200, L7000.1800, L7400.0353 #### [facility] [address] [place], [address] .Auto Diffon 05-27-2024 Basophil, Absolute 0.1 10 3/mcL Normal 0.0-0.2 [facility] ([place]) Comment on above: Performed By: #### C MP, ADIFF, GFR, CBC, ANEU, MDW, LIP ####[address] [place], [place] [address] Basophils/100 WBC (Bld) 0.9 % Normal 0.0-2.5 [facility] ([place]) Comment on above: Performed By: #### C MP, ADIFF, GFR, CBC, ANEU, W, LIP ####[address] [place], [place] [address] Eosinophil, Absolute 0.3 10 3/mcL Normal 0.0-0.4 [facility] ([place]) Comment on above: Performed By: #### C MP, ADIFF, GFR, CBC, ANEU, MDW, LIP ####[address] [place], [place] [address] Eosinophils/100 WBC (Bld) 3.1 % Normal 0.0-7.0 [facility] ([place]) Comment on above: Performed By: #### C MP, ADIFF, GFR, CBC, ANEU, MDW, LIP ####[address] [place], [place] [address] Lymphocyte, Absolute 2.4 10 3/mcL Normal 0.8-3.9 [facility] ([place]) Comment on above: Performed By: #### C MP, ADIFF, GFR, CBC, ANEU, MDW, LIP ####[address] [place], [place] [address] Lymphocytes/100 WBC (Bld) 21.3 % Normal 10.0-50.0 [facility] ([place]) Comment on above: Performed By: #### C MP, ADIFF, GFR, CBC, ANEU, MDW, LIP ####[address] [place], [place] [address] Monocyte, Absolute 0.8 10 3/mcL Normal 0.2-1.0 [facility] ([place]) Comment on above: Performed By: #### C MP, ADIFF, GFR, CBC, ANEUMDW, LIP ####[address] [place], [place] [address] Monocytes/100 WBC (Bld) 7.2 % Normal 1.7-13.0 [facility] ([place]) Comment on above: Performed By: #### C MP, ADIFF, GFR, CBC, ANEU, MDW, LIP ####[address] [place], [place] [address] Neutrophils/100 WBC (Bld) 67.5 % Normal 37.0-80.0 [facility] ([place]) Comment on above: Performed By: #### C MP, ADIFF, GFR, CBC, TABATHA CORTEZ, LIP ####[address] [place], [place] [address] .GFRon 05-27-2024 GFR 95 ml/min/1.73sqm Normal [facility] ([place]) Comment on above: Result Comment: GFR Population mean for , Non- Americans Ages 20-29 = 116 mL/min/1.73 sq.m. Ages 30-39 = 107 mL/min/1.73 sq.m. Ages 40-49 = 99 mL/min/1.73 sq.m. Ages 50-59 = 93 mL/min/1.73 sq.m. Ages 60-69 = 85 mL/min/1.73 sq.m. Ages 70+ = 75 mL/min/1.73 sq.m. Chronic Kidney Disease: Less than 60 mL/min/1.73 square meters End Stage Renal Disease: Less than 15 mL/min/1.73 square meters Performed By: #### C MP, ADIFF, GFR, CBC, TABATHA CORTEZ, LIP ####[address] [place], [place] [address] GFR Non- 79 ml/min/1.73sqm Normal [facility] ([place]) Comment on above: Result Comment: GFR Population mean for , Non- Americans Ages 20-29 = 116 mL/min/1.73 sq.m. Ages 30-39 = 107 mL/min/1.73 sq.m. Ages 40-49 = 99 mL/min/1.73 sq.m. Ages 50-59 = 93 mL/min/1.73 sq.m. Ages 60-69 = 85 mL/min/1.73 sq.m. Ages 70+ = 75 mL/min/1.73 sq.m. Chronic Kidney Disease: Less than 60 mL/min/1.73 square meters End Stage Renal Disease: Less than 15 mL/min/1.73 square meters Performed By: #### C MP, ADIFF, GFR, CBC, ANEU, MDW, LIP ####[address] [place], [place] [address] .MDWon 05-27-2024 Monocyte Distribution Width 21.67 High 0.00-20.00 [facility] ([place]) Comment on above: Result Comment: For adults in ED, MDW>20.0 may be associated with a higher risk of sepsis during the first 12hrs of hospital admission Performed By: #### C MP, ADIFF, GFR, CBC, ANEU, MDW, LIP ####[address] [place], [place] [address] .NEUABSon 05-27-2024 Neutrophil, Absolute 7.5 10 3/mcL High 2.9-6.2 [facility] ([place]) Comment on above: Performed By: #### C MP, ADIFF, GFR, CBC, ANEU, MDW, LIP ####[address] [place], [place] [address] CBCon 05-27-2024 Erythrocyte distribution width (RBC) [Ratio] 15.2 % High 11.5-14.5 [facility] ([place]) Comment on above: Performed By: #### C MP, ADIFF, GFR, CBC, ANEU, MDW, LIP ####[address] [place], [place] [address] Hematocrit (Bld) [Volume fraction] 41.3 % Normal 37.0-47.0 [facility] ([place]) Comment on above: Performed By: #### C MP, ADIFF, GFR, CBC, ANEU, MDW, LIP ####[address] [place], [place] [address] Hgb 14.1 G/dL Normal 12.0-16.0 [facility] ([place]) Comment on above: Performed By: #### C MP, ADIFF, GFR, CBC, ANEU, MDW, LIP ####[address] [place], [place] [address] MCH (RBC) [Entitic mass] 28.8 pg Normal 27.0-31.2 [facility] ([place]) Comment on above: Performed By: #### C MP, ADIFF, GFR, CBC, ANEU, MDW, LIP ####[address] [place], [place] [address] MCHC 34.1 G/dL Normal 33.0-37.0 [facility] ([place]) Comment on above: Performed By: #### C MP, ADIFF, GFR, CBC, ANEU, MDW, LIP ####[address] [place], [place] [address] MCV (RBC) [Entitic vol] 84.5 fL Normal 80.0-94.0 [facility] ([place]) Comment on above: Performed By: #### C MP, ADIFF, GFR, CBC, ANEU, MDW, LIP ####[address] [place], [place] [address] Platelet 340 10 3/mcL Normal 130-400 [facility] ([place]) Comment on above: Performed By: #### C MP, ADIFF, GFR, CBC, ANEU, MDW, LIP ####[address] [place], [place] [address] Platelet mean volume (Bld) [Entitic vol] 7.7 fL Normal 7.4-10.4 [facility] ([place]) Comment on above: Performed By: #### C MP, ADIFF, GFR, CBC, ANEU, MDW, LIP ####[address] [place], [place] [address] RBC 4.89 10 6/mcL Normal 4.20-5.40 [facility] ([place]) Comment on above: Performed By: #### C MP, ADIFF, GFR, CBC, ANEU, MDW, LIP ####[address] [place], [place] [address] WBC 11.1 10 3/mcL High 4.6-10.8 [facility] ([place]) Comment on above: Performed By: #### C MP, ADIFF, GFR, CBC, ANEU, MDW, LIP ####[address] [place], [place] [address] CMPon 05-27-2024 Albumin Level 3.4 G/dL Low 3.5-5.0 [facility] ([place]) Comment on above: Performed By: #### C MP, ADIFF, GFR, CBC, TABATHA CORTEZ, LIP ####[address] [place], [place] [address] Albumin/Globulin [Mass ratio] 1.0 {ratio} Low 1.1-2.5 [facility] ([place]) Comment on above: Performed By: #### C MP, ADIFF, GFR, CBC, ANEU, MDW, LIP ####[address] [place], [place] [address] ALP [Catalytic activity/Vol] 60 U/L Normal 40-135 [facility] ([place]) Comment on above: Performed By: #### C MP, ADIFF, GFR, CBC, ANEU, W, LIP ####[address] [place], [place] [address] ALT [Catalytic activity/Vol] 21 U/L Normal 14-59 [facility] ([place]) Comment on above: Performed By: #### C MP, ADIFF, GFR, CBC, ANEU, MDW, LIP ####[address] [place], [place] [address] AST [Catalytic activity/Vol] 12 U/L Normal 10-40 [facility] ([place] Comment on above: Performed By: #### C MP, ADIFF, GFR, CBC, ANEU, MDW, LIP ####[address] [place], [place] [address] Bili Total 0.5 mg/dL Normal 0.2-1.0 [facility] ([place]) Comment on above: Result Comment: Use of this assay is not recommended for patients undergoing treatment with eltrombopag due to the potential for falsely elevated results. Performed By: #### C MP, ADIFF, GFR, CBC, ANEU, MDW, LIP ####[address] [place], [place] [address] BUN/Creatinine Ratio 7 ratio Normal 7-27 [facility] ([place]) Comment on above: Performed By: #### C MP, ADIFF, GFR, CBC, ANEU, TABATHA, LIP ####[address] [place], [place] [address] Calcium [Mass/Vol] 9.4 mg/dL Normal 8.4-10.2 [facility] ([place]) Comment on above: Performed By: #### C MP, ADIFF, GFR, CBC, ANEU, MDW, LIP ####[address] [place], [place] [address] Chloride [Moles/Vol] 102 mmol/L Normal 98-107 [facility] ([place]) Comment on above: Performed By: #### C MP, ADIFF, GFR, CBC, ANEU, W, LIP ####[address] [place], [place] [address] CO2 [Moles/Vol] 27 mmol/L Normal 22-29 [facility] ([place]) Comment on above: Performed By: #### C MP, ADIFF, GFR, CBC, TABATHA CORTEZ, LIP ####[address] [place], [place] [address] Creatinine [Mass/Vol] 0.87 mg/dL Normal 0.55-1.02 [facility] ([place]) Comment on above: Performed By: #### C MP, ADIFF, GFR, CBC, MD DIEGOW, LIP ####[address] [place], [place] [address] Electrolyte Balance 7.0 mEq/L Normal 4.0-15.0 [facility] ([place]) Comment on above: Performed By: #### C MP, ADIFF, GFR, CBC, DIEGO, TABATHA, LIP ####[address] [place], [place] [address] Globulin 3.5 G/dL Normal [facility] ([place]) Comment on above: Performed By: #### C MP, ADIFF, GFR, CBC, DIEGO MDW, LIP ####[address] [place], [place] [address] Glucose [Mass/Vol] 83 mg/dL Normal 70-105 [facility] ([place]) Comment on above: Performed By: #### C MP, ADIFF, GFR, CBC, TABATHA CORTEZ, LIP ####[address] [place], [place] [address] Potassium [Moles/Vol] 4.3 mmol/L Normal 3.5-5.1 [facility] ([place]) Comment on above: Performed By: #### C MP, ADIFF, GFR, CBC, TABATHA CORTEZ, LIP ####[address] [place], [place] [address] Sodium [Moles/Vol] 136 mmol/L Normal 136-145 [facility] ([place]) Comment on above: Performed By: #### C MP, ADIFF, GFR, CBC, TABATHA CORTEZ, LIP ####[address] [place], [place] [address] Total Protein 6.9 G/dL Normal 6.4-8.2 [facility] ([place] Comment on above: Performed By: #### C MP, ADIFF, GFR, CBC, TABATHA CORTEZ, LIP ####[address] [place], [place] [address] Urea nitrogen [Mass/Vol] 6 mg/dL Low 7-18 [facility] ([place]) Comment on above: Performed By: #### C MP, ADIFF, GFR, CBC, TABATHA CORTEZ, LIP ####[address] [place], [place] [address] LABORATORYOrdered By: SYSTEM SYSTEM on 05-27-2024 Albumin BCP dye [Mass/Vol] 3.4 G/dL Low 3.5 - 5.0 G/dL AO ADM SS Albumin/Globulin [Mass ratio] 1.0 {ratio} Low 1.1 - 2.5 ratio AO ADM SS ALP [Catalytic activity/Vol] 60 U/L Normal 40 - 135 U/L AO ADM SS ALT With P-5'-P [Catalytic activity/Vol] 21 U/L Normal 14 - 59 U/L AO ADM SS AST With P-5'-P [Catalytic activity/Vol] 12 U/L Normal 10 - 40 U/L AO ADM SS Basophil, Absolute 0.1 103/mcL Normal 0.0 - 0.2 10^3/mcL AO Workflow SS Basophils/100 WBC (Bld) 0.9 % Normal 0.0 - 2.5 % AO Workflow SS Bilirubin [Mass/Vol] 0.5 mg/dL Normal 0.2 - 1 .0 mg/dL AO ADM SS Comment on above: Interpretive Data: U se of this assay is not recommended for patients undergoing treatment with eltrombopag due to the potential for falsely elevated results. Calcium [Mass/Vol] 9.4 mg/dL Normal 8.4 - 10. 2 mg/dL AO ADM SS Chloride [Moles/Vol] 102 mmol/L Normal 98 - 10 7 mmol/L AO ADM SS CO2 [Moles/Vol] 27 mmol/L Normal 22 - 29 mmol/L AO ADM SS Creatinine [Mass/Vol] 0.87 mg/dL Normal 0.55 - 1.02 mg/dL AO ADM SS Electrolyte Balance 7.0 mEq/L Normal 4.0 - 15 .0 mEq/L AO ADM SS Eosinophil, Absolute 0.3 103/mcL Normal 0.0 - 0 .4 10^3/mcL AO Workflow SS Eosinophils/100 WBC (Bld) 3.1 % Normal 0.0 - 7.0 % AO Workflow SS Erythrocyte distribution width (RBC) [Ratio] 15.2 % High 11.5 - 14.5 % AO Workflow SS GFR/1.73 sq M.predicted among blacks MDRD (S/P/Bld) [Vol rate/Area] 95 ml/min/1.73sqm Invalid Interpretation Code AO Chemistry S Comment on above: Interpretive Data: GFR Population mean for , Non- Americans Ages 20-29 = 116 mL/min/1.73 sq.m. Ages 30-39 = 107 mL/min/1.73 sq.m. Ages 40-49 = 99 mL/min/1.73 sq.m. Ages 50-59 = 93 mL/min/1.73 sq.m. Ages 60-69 = 85 mL/min/1.73 sq.m. Ages 70+ = 75 mL/min/1.73 sq.m. Chronic Kidney Disease: Less than 60 mL/min/1.73 square meters End Stage Renal Disease: Less than 15 mL/min/1.73 square meters GFR/1.73 sq M.predicted among non-blacks MDRD (S/P/Bld) [Vol rate/Area] 79 ml/min/1.73sqm Invalid Interpretation Code AO Chemistry S Comment on above: Interpretive Data: GFR Population mean for , Non- Americans Ages 20-29 = 116 mL/min/1.73 sq.m. Ages 30-39 = 107 mL/min/1.73 sq.m. Ages 40-49 = 99 mL/min/1.73 sq.m. Ages 50-59 = 93 mL/min/1.73 sq.m. Ages 60-69 = 85 mL/min/1.73 sq.m. Ages 70+ = 75 mL/min/1.73 sq.m. Chronic Kidney Disease: Less than 60 mL/min/1.73 square meters End Stage Renal Disease: Less than 15 mL/min/1.73 square meters Globulin 3.5 G/dL Invalid Interpretation Code AO ADM SS Glucose [Mass/Vol] 83 mg/dL Normal 70 - 105 mg/dL AO ADM SS Hematocrit (Bld) [Volume fraction] 41.3 % Normal 37.0 - 47.0 % AO Workflow SS Hemoglobin (Bld) [Mass/Vol] 14.1 G/dL Normal 12.0 - 16.0 G/dL AO Workflow SS Lipase [Catalytic activity/Vol] 39 U/L Normal 16 - 77 U/L AO ADM SS Lymphocyte, Absolute 2.4 103/mcL Normal 0.8 - 3 .9 10^3/mcL AO Workflow SS Lymphocytes/100 WBC (Bld) 21.3 % Normal 10.0 - 50.0 % AO Workflow SS MCH (RBC) [Entitic mass] 28.8 pg Normal 27.0 - 31.2 pg AO Workflow SS MCHC 34.1 G/dL Normal 33.0 - 37.0 G/dL AO Workflow SS MCV (RBC) [Entitic vol] 84.5 fL Normal 80.0 - 94.0 fL AO Workflow SS Monocyte distribution width Auto (Bld) [Entitic vol] 21.67 1 High 0.00 - 20.00 AO Workflow SS Comment on above: Result Comment: For adults in ED, MDW>20.0 may be associated with a higher risk of sepsis during the first 12hrs of hospital admission Monocyte, Absolute 0.8 103/mcL Normal 0.2 - 1.0 10^3/mcL AO Workflow SS Monocytes/100 WBC (Bld) 7.2 % Normal 1.7 - 13.0 % AO Workflow SS Neutrophil, Absolute 7.5 103/mcL High 2.9 - 6 .2 10^3/mcL AO Workflow SS Neutrophils/100 WBC (Bld) 67.5 % Normal 37.0 - 80.0 % AO Workflow SS Platelet mean volume (Bld) [Entitic vol] 7.7 fL Normal 7.4 - 10.4 fL AO Workflow SS Platelets (Bld) [#/Vol] 340 103/mcL Normal 130 - 400 10^3/mcL AO Workflow SS Potassium [Moles/Vol] 4.3 mmol/L Normal 3.5 - 5.1 mmol/L AO ADM SS Protein [Mass/Vol] 6.9 G/dL Normal 6.4 - 8.2 G/dL AO ADM SS RBC (Bld) [#/Vol] 4.89 106/mcL Normal 4.20 - 5.4 0 10^6/mcL AO Workflow SS Sodium [Moles/Vol] 136 mmol/L Normal 136 - 145 mmol/L AO ADM SS Urea nitrogen [Mass/Vol] 6 mg/dL Low 7 - 18 mg/dL AO ADM SS Urea nitrogen/Creatinine [Mass ratio] 7 ratio Normal 7 - 27 ratio AO ADM SS WBC (Bld) [#/Vol] 11.1 103/mcL High 4.6 - 10.8 10^3/mcL AO Workflow SS LABORATORYOrdered By: Anastacia Stafford on 05-27-2024 Appearance (U) Clear (05/27/24 7:40 PM) Normal Clear AO Auto Urine SS Bilirubin Ql (U) Negative (05/27/24 7:40 PM) Normal Negative AO Auto Urine SS Color (U) Yellow (05/27/24 7:40 PM) Normal AO Auto Urine SS Glucose Test strip (U) [Mass/Vol] Negative Normal Negative AO Auto Urine SS Hemoglobin Auto test strip (U) [Mass/Vol] Negative (05/27/24 7:40 PM) Normal Negative AO Auto Urine SS Ketones Ql (U) 40 mg/dL Invalid Interpretation Code Negative AO Auto Urine SS UA Leuk Est Negative (05/27/24 7:40 PM) Normal Negative AO Auto Urine SS UA Nitrite Negative (05/27/24 7:40 PM) Normal Negative AO Auto Urine SS UA pH 6.0 (05/27/24 7:40 PM) Normal 5.0 - 8.0 AO Auto Urine SS UA Protein Trace mg/dL Normal Negative AO Auto Urine SS UA Spec Grav >=1.030 *ABN* (05/27/24 7:40 PM) Invalid Interpretation Code 1.015-1.025 AO Auto Urine SS UA Specimen Type Clean Catch (05/27/24 7:40 PM) Normal AO Auto Urine SS UA Urobilinogen 0.2 E.U./dL Normal 0.2-1.0 AO Auto Urine SS LIPon 05-27-2024 Lipase Level 39 U/L Normal 16-77 [facility] ([place]) Comment on above: Performed By: #### C MP, ADIFF, GFR, CBC, ANEU, MDW, LIP ####[address] [address] UAon 05-27-2024 Color (U) Yellow Normal [facility] ([place]) Comment on above: Performed By: #### U A #### [address] [address] Glucose (U) [Mass/Vol] Negative Normal Negative [facility] ([place]) Comment on above: Performed By: #### U A #### [address] [address] Ketones Ql (U) 40 mg/dL Abnormal Negative [facility] ([place]) Comment on above: Performed By: #### U A #### [address] [address] UA Appear Clear Normal Clear [facility] ([place] Comment on above: Performed By: #### U A #### [address] [address] UA Blood Negative Normal Negative [facility] ([place]) Comment on above: Performed By: #### U A #### [address] [address] UA Leuk Est Negative Normal Negative [facility] ([place] Comment on above: Performed By: #### U A #### [address] [address] UA Nitrite Negative Normal Negative [facility] ([place] Comment on above: Performed By: #### U A #### [address] [address] UA pH 6.0 Normal 5.0 - 8.0 [facility] ([place] Comment on above: Performed By: #### U A #### [address] [address] UA Protein Trace Normal Negative [facility] ([place]) Comment on above: Performed By: #### U A #### [place] [id number] UA Spec Grav >=1.030 Abnormal 1.015-1.025 [facility] ([place]) Comment on above: Performed By: #### U A #### [place] [id number] UA Specimen Type Clean Catch Normal [facility] ([place] Comment on above: Performed By: #### U A #### [place] [id number] UA Urobilinogen 0.2 E.U./dL Normal 0.2-1.0 [facility] ([place] Comment on above: Performed By: #### U A #### [address] [address] Urobilinogen (U) [Mass/Vol] Negative Normal Negative [facility] ([place] Comment on above: Performed By: #### U A #### [address] [address] Final Surgical Pathology Rep [facility] 02-23-2024 Final Surgical Pathology Report . Pathology Reports Accession: Collected Date/Time: Received Date/Time: Pathologist: [id number] 02/19/2024 11:32 EDT 02/20/2024 08:11 EDT NAVEEN LAYTON MD Final Surgical Pathology Report DIAGNOSIS: GALLBLADDER: - CHRONIC CHOLECYSTITIS CLINICAL INFORMATION: Procedure: ROBOTIC ASSISTED CHOLECYSTECTOMY Preoperative diagnosis: RIGHT UPPER QUADRANT PAIN Postoperative diagnosis: RIGHT UPPER QUADRANT PAIN SPECIMEN: A GALLBLADDER GROSS DESCRIPTION: All parts labelled with patient name and [id number] Received in formalin, labeled gallbladder is a previously opened green-graves gallbladder with a small amount of light green bile loose within the container. The gallbladder measures 6.7 x 2.0 x 1.0 cm. The external surface shows operative artifact. Upon opening, the mucosa is graves-green and smooth, without mass lesions or thickened areas. No calculi are seen in the gallbladder or container.. RS-1 David Driscoll MD Dictated by DAVID DRISCOLL MICROSCOPIC DESCRIPTION: The microscopic examination is performed, except in the case of Gross Only. Electronically Signed by Pathology Report verified by [facility] NAVEEN LAYTON Sign out Date: 02/23/2024 13:04 Performing Lab: [facility], [address] [place] [address] Pathology Dept Disclaimer If ancillary studies were utilized, the following Laboratory Developed Test (LDT) disclaimer will apply: Under CLIA requirements, [facility] is qualified to perform high complexity testing. For all ancillary stains, positive and negative controls stain appropriately. Performance characteristics of immunohistochemical and chromogenic in-situ hybridization tests have been determined by [facility]. These tests are used for clinical purposes, They should not be regarded as investigational or for research. Normal [facility] ([place]) .Auto Diffon 02-21-2024 Basophil, Absolute 0.1 10 3/mcL Normal 0.0-0.2 [facility] ([place]) Comment on above: Performed By: #### M DW, TROPHS, GFR, CMP, ADIFF, LIP, CBC, ANEU ####[address] [place], [place] [address] Basophils/100 WBC (Bld) 1.3 % Normal 0.0-2.5 [facility] ([place]) Comment on above: Performed By: #### M DW, TROPHS, GFR, CMP, ADIFF, LIP, CBC, ANEU ####[address] [place], [place] [address] Eosinophil, Absolute 0.5 10 3/mcL High 0.0-0.4 [facility] ([place]) Comment on above: Performed By: #### M DW, TROPHS, GFR, CMP, ADIFF, LIP, CBC, ANEU ####[address] [place], [place] [address] Eosinophils/100 WBC (Bld) 6.3 % Normal 0.0-7.0 [facility] ([place]) Comment on above: Performed By: #### M DW, TROPHS, GFR, CMP, ADIFF, LIP, CBC, ANEU ####[address] [place], [place] [address] Lymphocyte, Absolute 3.1 10 3/mcL Normal 0.8-3.9 [facility] ([place]) Comment on above: Performed By: #### M DW, TROPHS, GFR, CMP, ADIFF, LIP, CBC, ANEU ####[address] [place], [place] [address] Lymphocytes/100 WBC (Bld) 37.4 % Normal 10.0-50.0 [facility] ([place]) Comment on above: Performed By: #### M DW, TROPHS, GFR, CMP, ADIFF, LIP, CBC, ANEU ####[address] [place], [place] [address] Monocyte, Absolute 0.7 10 3/mcL Normal 0.2-1.0 [facility] ([place]) Comment on above: Performed By: #### M DW, TROPHS, GFR, CMP, ADIFF, LIP, CBC, ANEU ####[address] [place], [place] [address] Monocytes/100 WBC (Bld) 7.9 % Normal 1.7-13.0 [facility] ([place]) Comment on above: Performed By: #### M DW, TROPHS, GFR, CMP, ADIFF, LIP, CBC, ANEU ####[address] [place], [place] [address] Neutrophils/100 WBC (Bld) 47.1 % Normal 37.0-80.0 [facility] ([place]) Comment on above: Performed By: #### M DW, TROPHS, GFR, CMP, ADIFF, LIP, CBC, ANEU ####[address] [place], [place] [address] .GFRon 02-21-2024 GFR 82 ml/min/1.73sqm Normal [facility] ([place]) Comment on above: Result Comment: GFR Population mean for , Non- Americans Ages 20-29 = 116 mL/min/1.73 sq.m. Ages 30-39 = 107 mL/min/1.73 sq.m. Ages 40-49 = 99 mL/min/1.73 sq.m. Ages 50-59 = 93 mL/min/1.73 sq.m. Ages 60-69 = 85 mL/min/1.73 sq.m. Ages 70+ = 75 mL/min/1.73 sq.m. Chronic Kidney Disease: Less than 60 mL/min/1.73 square meters End Stage Renal Disease: Less than 15 mL/min/1.73 square meters Performed By: #### M DW, TROPHS, GFR, CMP, ADIFF, LIP, CBC, ANEU ####[address] [place], [place] [address] GFR Non- 68 ml/min/1.73sqm Normal [facility] ([place] Comment on above: Result Comment: GFR Population mean for , Non- Americans Ages 20-29 = 116 mL/min/1.73 sq.m. Ages 30-39 = 107 mL/min/1.73 sq.m. Ages 40-49 = 99 mL/min/1.73 sq.m. Ages 50-59 = 93 mL/min/1.73 sq.m. Ages 60-69 = 85 mL/min/1.73 sq.m. Ages 70+ = 75 mL/min/1.73 sq.m. Chronic Kidney Disease: Less than 60 mL/min/1.73 square meters End Stage Renal Disease: Less than 15 mL/min/1.73 square meters Performed By: #### M DW, TROPHS, GFR, CMP, ADIFF, LIP, CBC, ANEU ####[address] [place], [place] [address] .MDWon 02-21-2024 Monocyte Distribution Width 19.62 Normal 0.00-20.00 [facility] ([place]) Comment on above: Result Comment: For ED adult patients suspected of sepsis, MDW<=20.0 does not rule out sepsis or risk of sepsis Performed By: #### M DW, TROPHS, GFR, CMP, ADIFF, LIP, CBC, ANEU ####[address] [place], [place] [address] .NEUABSon 02-21-2024 Neutrophil, Absolute 3.9 10 3/mcL Normal 2.9-6.2 [facility] ([place]) Comment on above: Performed By: #### M DW, TROPHS, GFR, CMP, ADIFF, LIP, CBC, ANEU ####[address] [place] [id number] CBCon 02-21-2024 Erythrocyte distribution width (RBC) [Ratio] 15.0 % High 11.5-14.5 [facility] ([place]) Comment on above: Performed By: #### M DW, TROPHS, GFR, CMP, ADIFF, LIP, CBC, ANEU ####[address] [place] [address] Hematocrit (Bld) [Volume fraction] 36.6 % Low 37.0-47.0 [facility] ([place] Comment on above: Performed By: #### M DW, TROPHS, GFR, CMP, ADIFF, LIP, CBC, ANEU ####[address] [place] [id number] Hgb 12.4 G/dL Normal 12.0-16.0 [facility] ([place] Comment on above: Performed By: #### M DW, TROPHS, GFR, CMP, ADIFF, LIP, CBC, ANEU ####[place] [address] [place] [address] MCH (RBC) [Entitic mass] 27.6 pg Normal 27.0-31.2 [facility] ([place] Comment on above: Performed By: #### M DW, TROPHS, GFR, CMP, ADIFF, LIP, CBC, ANEU ####[address] [place] [id number] MCHC 34.0 G/dL Normal 33.0-37.0 [facility] ([place] Comment on above: Performed By: #### M DW, TROPHS, GFR, CMP, ADIFF, LIP, CBC, ANEU ####[address] [place], [place] [address] MCV (RBC) [Entitic vol] 81.2 fL Normal 80.0-94.0 [facility] ([place] Comment on above: Performed By: #### M DW, TROPHS, GFR, CMP, ADIFF, LIP, CBC, ANEU ####[address] [place], [place] [address] Platelet 299 10 3/mcL Normal 130-400 [facility] ([place] Comment on above: Performed By: #### M DW, TROPHS, GFR, CMP, ADIFF, LIP, CBC, ANEU ####[address] [place], [place] [address] Platelet mean volume (Bld) [Entitic vol] 7.8 fL Normal 7.4-10.4 [facility] ([place] Comment on above: Performed By: #### M DW, TROPHS, GFR, CMP, ADIFF, LIP, CBC, ANEU ####[address] [place], [place] [address] RBC 4.51 10 6/mcL Normal 4.20-5.40 [facility] ([place] Comment on above: Performed By: #### M DW, TROPHS, GFR, CMP, ADIFF, LIP, CBC, ANEU ####[address] [place], [place] [address] WBC 8.3 10 3/mcL Normal 4.6-10.8 [facility] ([place] Comment on above: Performed By: #### M DW, TROPHS, GFR, CMP, ADIFF, LIP, CBC, ANEU ####[address] [place], [place] [address] CMPon 02-21-2024 Albumin Level 3.1 G/dL Low 3.5-5.0 [facility] ([place] Comment on above: Performed By: #### M DW, TROPHS, GFR, CMP, ADIFF, LIP, CBC, ANEU ####[address] [place], [place] [address] Albumin/Globulin [Mass ratio] 1.1 {ratio} Normal 1.1-2.5 [facility] ([place] Comment on above: Performed By: #### M DW, TROPHS, GFR, CMP, ADIFF, LIP, CBC, ANEU ####[address] [place], [place] [address] ALP [Catalytic activity/Vol] 66 U/L Normal 40-135 [facility] ([place] Comment on above: Performed By: #### M DW, TROPHS, GFR, CMP, ADIFF, LIP, CBC, ANEU ####[address] [place], [place] [address] ALT [Catalytic activity/Vol] 156 U/L High 14-59 [facility] ([place] Comment on above: Performed By: #### M DW, TROPHS, GFR, CMP, ADIFF, LIP, CBC, ANEU ####[address] [place], [place] [address] AST [Catalytic activity/Vol] 58 U/L High 10-40 [facility] ([place] Comment on above: Performed By: #### M DW, TROPHS, GFR, CMP, ADIFF, LIP, CBC, ANEU ####[address] [place], [place] [address] Bili Total 0.2 mg/dL Normal 0.2-1.0 [facility] ([place] Comment on above: Result Comment: Use of this assay is not recommended for patients undergoing treatment with eltrombopag due to the potential for falsely elevated results. Performed By: #### M DW, TROPHS, GFR, CMP, ADIFF, LIP, CBC, ANEU ####[address] [place], [place] [address] BUN/Creatinine Ratio 7 ratio Normal 7-27 [facility] ([place] Comment on above: Performed By: #### M DW, TROPHS, GFR, CMP, ADIFF, LIP, CBC, ANEU ####[address] [place], [place] [address] Calcium [Mass/Vol] 8.2 mg/dL Low 8.4-10.2 [facility] ([place]) Comment on above: Performed By: #### M DW, TROPHS, GFR, CMP, ADIFF, LIP, CBC, ANEU ####[address] [place], [place] [address] Chloride [Moles/Vol] 105 mmol/L Normal 98-107 [facility] ([place] Comment on above: Performed By: #### M DW, TROPHS, GFR, CMP, ADIFF, LIP, CBC, ANEU ####[address] [place], [place] [address] CO2 [Moles/Vol] 29 mmol/L Normal 22-29 [facility] ([place] Comment on above: Performed By: #### M DW, TROPHS, GFR, CMP, ADIFF, LIP, CBC, ANEU ####[address] [place], [place] [address] Creatinine [Mass/Vol] 1.00 mg/dL Normal 0.55-1.02 [facility] ([place]) Comment on above: Performed By: #### M DW, TROPHS, GFR, CMP, ADIFF, LIP, CBC, ANEU ####[address] [place], [place] [address] Electrolyte Balance 8.0 mEq/L Normal 4.0-15.0 [facility] ([place]) Comment on above: Performed By: #### M DW, TROPHS, GFR, CMP, ADIFF, LIP, CBC, ANEU ####[address] [place], [place] [address] Globulin 2.9 G/dL Normal [facility] ([place] Comment on above: Performed By: #### M DW, TROPHS, GFR, CMP, ADIFF, LIP, CBC, ANEU ####[address] [place], [place] [address] Glucose [Mass/Vol] 76 mg/dL Normal 70-105 [facility] ([place]) Comment on above: Performed By: #### M DW, TROPHS, GFR, CMP, ADIFF, LIP, CBC, ANEU ####[address] [place], [place] [address] Potassium [Moles/Vol] 3.8 mmol/L Normal 3.5-5.1 [facility] ([place] Comment on above: Performed By: #### M DW, TROPHS, GFR, CMP, ADIFF, LIP, CBC, ANEU ####[address] [place], [place] [address] Sodium [Moles/Vol] 142 mmol/L Normal 136-145 [facility] ([place]) Comment on above: Performed By: #### M DW, TROPHS, GFR, CMP, ADIFF, LIP, CBC, ANEU ####[address] [place], [place] [address] Total Protein 6.0 G/dL Low 6.4-8.2 [facility] ([place] Comment on above: Performed By: #### M DW, TROPHS, GFR, CMP, ADIFF, LIP, CBC, ANEU ####[address] [place], [place] [address] Urea nitrogen [Mass/Vol] 7 mg/dL Normal 7-18 [facility] ([place] Comment on above: Performed By: #### M DW, TROPHS, GFR, CMP, ADIFF, LIP, CBC, ANEU ####[address] [place], [place] [address] CT ABD/PELVIS W/ IV CONTRAST ONLYon 02-21-2024 CT ABD/PELVIS W/ IV CONTRAST ONLY ORIGINAL EXAMINATION: CT OF THE ABDOMEN AND PELVIS WITH CONTRAST02/21/2024 4:[address] ABDOMEN/PELVIS WITH CONTRAST TECHNIQUE: CT of the abdomen and pelvis was performed with the administration of intravenous contrast. Multiplanar reformatted images are provided for review. Automated exposure control, iterative reconstruction, and/or weight based adjustment of the mA/kV was utilized to reduce the radiation dose to as low as reasonably achievable. COMPARISON: CT abdomen pelvis December 20, 2023 HISTORY: ORDERING SYSTEM PROVIDED HISTORY: Reason for Exam: pain FINDINGS: The size, density, and morphology of the liver, spleen, adrenals, kidneys, pancreas and unopacified loops of bowel are unremarkable. The opacified aorta demonstrates normal size and morphology without aneurysmal dilation or dissection. There are no enlarged lymph nodes by pathologic size criteria. There is no free fluid within the pelvis. The bladder and pelvic organs have an unremarkable CT appearance. The osseous structures are without gross lytic or sclerotic lesion. Same-day imaging was obtained of the chest. IMPRESSION: No acute intra-abdominal intrapelvic pathology. Interpreted by: Garcia Singer MD Preliminary Report By: Garcia Singer MD Electronically signed By Gracia Singer MD Dictated Date: 02/21/2024 5:12:15 PM Prelim Date: 02/21/2024 5:20:32 PM Sign Date: 02/21/2024 5:20:32 PM Ordering Provider[facility]HY CHEST W/CONTR Kylee 02-21-2024 CT ANGIOGRAPHY CHEST W/CONTRAST ORIGINAL EXAMINATION: CTA OF THE CHEST02/21/2024 4:46 pm CTA CHEST WITH CONTRAST TECHNIQUE: CTA of the chest was performed after the administration of intravenous contrast. Multiplanar reformatted images are provided for review. MIP images are provided for review. Automated exposure control, iterative reconstruction, and/or weight based adjustment of the mA/kV was utilized to reduce the radiation dose to as low as reasonably achievable. 3-D reformats were obtained on a separate workstation. COMPARISON: CTA chest, November 18, 2021 HISTORY: ORDERING SYSTEM PROVIDED HISTORY: Reason for Exam: difficulty breathing; suspect PE FINDINGS: Thoracic inlet structures are unremarkable in appearance. No pathologically enlarged hilar or mediastinal lymph nodes. The great vessels, heart and pericardium are unremarkable in size and appearance. A few ground-glass opacities are identified within the right upper lobe. No focal infiltrate or pulmonary nodule. No pleural effusion or pneumothorax. The incidentally included portions of the upper abdomen are within normal limits. The CT angiogram portion of the examination shows adequate contrast enhancement of the pulmonary arteries. The main and segmental pulmonary arteries are of normal size. No intraluminal filling defects are seen through the level of the segmental pulmonary arteries and opacified subsegmental pulmonary arteries. IMPRESSION: 1. No evidence of pulmonary embolus. 2. Ground-glass opacities in the right upper lobe are nonspecific and may be due to infectious or inflammatory etiology.. Interpreted by: Garcia Singer MD Preliminary Report By: Garcia Singer MD Electronically signed By Garcia Singer MD Dictated Date: 02/21/2024 5:11:08 PM Prelim Date: 02/21/2024 5:12:07 PM Sign Date: 02/21/2024 5:12:07 PM Ordering Provider: FANNYFINA DEGROOT [facility]) LABORATORYOrdered By: SYSTEM SYSTEM on 02-21-2024 Albumin BCP dye [Mass/Vol] 3.1 G/dL Low 3.5 - 5.0 G/dL AO ADM SS Albumin/Globulin [Mass ratio] 1.1 {ratio} Normal 1.1 - 2.5 ratio AO ADM SS ALP [Catalytic activity/Vol] 66 U/L Normal 40 - 135 U/L AO ADM SS ALT With P-5'-P [Catalytic activity/Vol] 156 U/L High 14 - 59 U/L AO ADM SS AST With P-5'-P [Catalytic activity/Vol] 58 U/L High 10 - 40 U/L AO ADM SS Basophil, Absolute 0.1 103/mcL Normal 0.0 - 0.2 10^3/mcL AO Workflow SS Basophils/100 WBC (Bld) 1.3 % Normal 0.0 - 2.5 % AO Workflow SS Bilirubin [Mass/Vol] 0.2 mg/dL Normal 0.2 - 1 .0 mg/dL AO ADM SS Comment on above: Interpretive Data: U se of this assay is not recommended for patients undergoing treatment with eltrombopag due to the potential for falsely elevated results. Calcium [Mass/Vol] 8.2 mg/dL Low 8.4 - 10. 2 mg/dL AO ADM SS Chloride [Moles/Vol] 105 mmol/L Normal 98 - 10 7 mmol/L AO ADM SS CO2 [Moles/Vol] 29 mmol/L Normal 22 - 29 mmol/L AO ADM SS Creatinine [Mass/Vol] 1.00 mg/dL Normal 0.55 - 1.02 mg/dL AO ADM SS Electrolyte Balance 8.0 mEq/L Normal 4.0 - 15 .0 mEq/L AO ADM SS Eosinophil, Absolute 0.5 103/mcL High 0.0 - 0 .4 10^3/mcL AO Workflow SS Eosinophils/100 WBC (Bld) 6.3 % Normal 0.0 - 7.0 % AO Workflow SS Erythrocyte distribution width (RBC) [Ratio] 15.0 % High 11.5 - 14.5 % AO Workflow SS GFR/1.73 sq M.predicted among blacks MDRD (S/P/Bld) [Vol rate/Area] 82 ml/min/1.73sqm Invalid Interpretation Code AO Chemistry S Comment on above: Interpretive Data: GFR Population mean for , Non- Americans Ages 20-29 = 116 mL/min/1.73 sq.m. Ages 30-39 = 107 mL/min/1.73 sq.m. Ages 40-49 = 99 mL/min/1.73 sq.m. Ages 50-59 = 93 mL/min/1.73 sq.m. Ages 60-69 = 85 mL/min/1.73 sq.m. Ages 70+ = 75 mL/min/1.73 sq.m. Chronic Kidney Disease: Less than 60 mL/min/1.73 square meters End Stage Renal Disease: Less than 15 mL/min/1.73 square meters GFR/1.73 sq M.predicted among non-blacks MDRD (S/P/Bld) [Vol rate/Area] 68 ml/min/1.73sqm Invalid Interpretation Code AO Chemistry S Comment on above: Interpretive Data: GFR Population mean for , Non- Americans Ages 20-29 = 116 mL/min/1.73 sq.m. Ages 30-39 = 107 mL/min/1.73 sq.m. Ages 40-49 = 99 mL/min/1.73 sq.m. Ages 50-59 = 93 mL/min/1.73 sq.m. Ages 60-69 = 85 mL/min/1.73 sq.m. Ages 70+ = 75 mL/min/1.73 sq.m. Chronic Kidney Disease: Less than 60 mL/min/1.73 square meters End Stage Renal Disease: Less than 15 mL/min/1.73 square meters Globulin 2.9 G/dL Invalid Interpretation Code AO ADM SS Glucose [Mass/Vol] 76 mg/dL Normal 70 - 105 mg/dL AO ADM SS Hematocrit (Bld) [Volume fraction] 36.6 % Low 37.0 - 47.0 % AO Workflow SS Hemoglobin (Bld) [Mass/Vol] 12.4 G/dL Normal 12.0 - 16.0 G/dL AO Workflow SS Lipase [Catalytic activity/Vol] 47 U/L Normal 16 - 77 U/L AO ADM SS Lymphocyte, Absolute 3.1 103/mcL Normal 0.8 - 3 .9 10^3/mcL AO Workflow SS Lymphocytes/100 WBC (Bld) 37.4 % Normal 10.0 - 50.0 % AO Workflow SS MCH (RBC) [Entitic mass] 27.6 pg Normal 27.0 - 31.2 pg AO Workflow SS MCHC 34.0 G/dL Normal 33.0 - 37.0 G/dL AO Workflow SS MCV (RBC) [Entitic vol] 81.2 fL Normal 80.0 - 94.0 fL AO Workflow SS Monocyte distribution width Auto (Bld) [Entitic vol] 19.62 1 Normal 0.00 - 20.00 AO Workflow SS Comment on above: Result Comment: For ED adult patients suspected of sepsis, MDW<=20.0 does not rule out sepsis or risk of sepsis Monocyte, Absolute 0.7 103/mcL Normal 0.2 - 1.0 10^3/mcL AO Workflow SS Monocytes/100 WBC (Bld) 7.9 % Normal 1.7 - 13.0 % AO Workflow SS Neutrophil, Absolute 3.9 103/mcL Normal 2.9 - 6 .2 10^3/mcL AO Workflow SS Neutrophils/100 WBC (Bld) 47.1 % Normal 37.0 - 80.0 % AO Workflow SS Platelet mean volume (Bld) [Entitic vol] 7.8 fL Normal 7.4 - 10.4 fL AO Workflow SS Platelets (Bld) [#/Vol] 299 103/mcL Normal 130 - 400 10^3/mcL AO Workflow SS Potassium [Moles/Vol] 3.8 mmol/L Normal 3.5 - 5.1 mmol/L AO ADM SS Protein [Mass/Vol] 6.0 G/dL Low 6.4 - 8.2 G/dL AO ADM SS RBC (Bld) [#/Vol] 4.51 106/mcL Normal 4.20 - 5.4 0 10^6/mcL AO Workflow SS Sodium [Moles/Vol] 142 mmol/L Normal 136 - 145 mmol/L AO ADM SS Troponin I.cardiac DL <= 0.01 ng/mL [Mass/Vol] ng/L Normal 0 - 51 ng/L AO ADM SS Comment on above: Interpretive Data: H igh Sensitive Troponin I Reference Ranges: Female: 0-51 ng/L Male: 0-76 ng/L Testing performed on redealize using a homogeneous sandwich chemiluminescent immunoassay based on IDverge technology. Urea nitrogen [Mass/Vol] 7 mg/dL Normal 7 - 18 mg/dL AO ADM SS Urea nitrogen/Creatinine [Mass ratio] 7 ratio Normal 7 - 27 ratio AO ADM SS WBC (Bld) [#/Vol] 8.3 103/mcL Normal 4.6 - 10.8 10^3/mcL AO Workflow SS LIPon 02-21-2024 Lipase Level 47 U/L Normal 16-77 [facility] ([place]) Comment on above: Performed By: #### M DW, TROPHS, GFR, CMP, ADIFF, LIP, CBC, ANEU ####[address] [place], [place] [address] TROPHSon 02-21-2024 High Sensitivity Troponin I <4 Normal 0-51 [facility] ([place]) Comment on above: Result Comment: High Sensitive Troponin I Reference Ranges: Female: 0-51 ng/L Male: 0-76 ng/L Testing performed on redealize using a homogeneous sandwich chemiluminescent immunoassay based on IDverge technology. Performed By: #### M DW, TROPHS, GFR, CMP, ADIFF, LIP, CBC, ANEU ####[address] [place], [place] [address] LABORATORYOrdered By: Mariposa osborn on 02-19-2024 HCG ( test) Ql Negative (02/19/24 8:42 AM) Normal AO Manual Urine SS test (u) int Not detected Invalid Interpretation Code AO Manual Urine SS PREGUon 02-19-2024 HCG ( test) Ql (U) Negative Normal [facility] ([place]) Comment on above: Performed By: #### P REGU ####[address] [place], [place] [address] test (u) int Not detected Invalid Interpretation Code [facility] ([place]) Comment on above: Performed By: #### P REGU ####[address] [place], [place] [address] NM HEPATOBILIARY DUCT SYSTEM IMAGINGon 01-23-2024 NM HEPATOBILIARY DUCT SYSTEM IMAGING ORIGINAL EXAMINATION: HIDA3 2:16 pm TECHNIQUE: The patient received an intravenous injection of 4.6 mCi of Tc-99m mebrofenin (Choletec). Sequential planar images of the upper abdomen were then acquired over the next 60 minutes. An intravenous infusion of the cholecystokinin (CCK) analogue, Sincalide was then administered followed by an additional period of imaging. Computer quantification of gallbladder emptying was performed. COMPARISON: 12/31/2023. HISTORY: ORDERING SYSTEM PROVIDED HISTORY: Reason for Exam: RUQ pain FINDINGS: There is prompt accumulation of activity within the liver and normal subsequent excretion via the biliary ductal system. The gallbladder first visualizes at about 10 minutes after radiopharmaceutical injection and progressively fills. After stimulation, there is minimal contraction of the gallbladder with anterograde transit of activity into the small bowel. The gallbladder ejection fraction is calculated to be 12 % (normal above 35%). IMPRESSION: 1. No findings to suggest acute cholecystitis. 2. Abnormal gallbladder contraction, can be seen with chronic cholecystitis/biliary dyskinesia. 3. Patent common bile duct. 4. Normal hepatic function. Interpreted by: Garcia Welch DO Preliminary Report By: Garcia Welch DO Electronically signed By Garcia Welch DO Dictated Date: 01/23/2024 2:22:48 PM Prelim Date: 01/23/2024 2:24:41 PM Sign Date: 01/23/2024 2:24:41 PM Ordering Provider: PIEDAD BANG [facility] ([place]) .Auto DiffOrdered By: SYSTEM SYSTEM on 12-31-2023 Basophil, Absolute 0.1 103/mcL Normal 0.0-0.2 AO Wo rkflow SS Comment on above: Performed By: #### C BC, LIP, ANEU, ADIFF, GFR, CMP, MDW ####[address] [place], [place] [address] Basophils/100 WBC (Bld) 1.5 % Normal 0.0-2.5 AO Workflow SS Comment on above: Performed By: #### C BC, LIP, ANEU, ADIFF, GFR, CMP, MDW ####[address] [place], [place] [address] Eosinophil, Absolute 0.4 103/mcL Normal 0.0-0.4 AO Workflow SS Comment on above: Performed By: #### C BC, LIP, ANEU, ADIFF, GFR, CMP, MDW ####[address] [place], [place] [address] Eosinophils/100 WBC (Bld) 5.0 % Normal 0.0-7.0 AO Workflow SS Comment on above: Performed By: #### C BC, LIP, ANEU, ADIFF, GFR, CMP, TABATHA ####[address] [place], [place] [address] Lymphocyte, Absolute 3.4 103/mcL Normal 0.8-3.9 AO Workflow SS Comment on above: Performed By: #### C BC, LIP, ANEU, ADIFF, GFR, CMP, W ####[address] [place], [place] [address] Lymphocytes/100 WBC (Bld) 41.3 % Normal 10.0-50.0 AO Workflow SS Comment on above: Performed By: #### C BC, LIP, ANEU, ADIFF, GFR, CMP, TABATHA ####[address] [place], [place] [address] Monocyte, Absolute 0.4 103/mcL Normal 0.2-1.0 AO Wo rkflow SS Comment on above: Performed By: #### C BC, LIP, ANEU, ADIFF, GFR, CMP, TABATHA ####[address] [place], [place] [address] Monocytes/100 WBC (Bld) 5.4 % Normal 1.7-13.0 AO Workflow SS Comment on above: Performed By: #### C BC, LIP, ANEU, ADIFF, GFR, CMP, TABATHA ####[address] [place], [place] [address] Neutrophils/100 WBC (Bld) 46.8 % Normal 37.0-80.0 AO Workflow SS Comment on above: Performed By: #### C BC, LIP, ANEU, ADIFF, GFR, CMP, TABATHA ####[address] [place], [place] [address] .GFRon 12-31-2023 GFR Non- 73 ml/min/1.73sqm Normal [facility] ([place]) Comment on above: Result Comment: GFR Population mean for , Non- Americans Ages 20-29 = 116 mL/min/1.73 sq.m. Ages 30-39 = 107 mL/min/1.73 sq.m. Ages 40-49 = 99 mL/min/1.73 sq.m. Ages 50-59 = 93 mL/min/1.73 sq.m. Ages 60-69 = 85 mL/min/1.73 sq.m. Ages 70+ = 75 mL/min/1.73 sq.m. Chronic Kidney Disease: Less than 60 mL/min/1.73 square meters End Stage Renal Disease: Less than 15 mL/min/1.73 square meters Performed By: #### C BC, LIP, ANEU, ADIFF, GFR, CMP, W ####[address] [place], [place] [address] GFR 89 ml/min/1.73sqm Normal [facility] ([place]) Comment on above: Result Comment: GFR Population mean for , Non- Americans Ages 20-29 = 116 mL/min/1.73 sq.m. Ages 30-39 = 107 mL/min/1.73 sq.m. Ages 40-49 = 99 mL/min/1.73 sq.m. Ages 50-59 = 93 mL/min/1.73 sq.m. Ages 60-69 = 85 mL/min/1.73 sq.m. Ages 70+ = 75 mL/min/1.73 sq.m. Chronic Kidney Disease: Less than 60 mL/min/1.73 square meters End Stage Renal Disease: Less than 15 mL/min/1.73 square meters Performed By: #### C BC, LIP, ANEU, ADIFF, GFR, CMP, W ####[address] [place], [place] [address] .MDWon 12-31-2023 Monocyte Distribution Width 21.79 High 0.00-20.00 [facility] ([place]) Comment on above: Result Comment: For adults in ED, MDW>20.0 may be associated with a higher risk of sepsis during the first 12hrs of hospital admission Performed By: #### C BC, LIP, ANEU, ADIFF, GFR, CMP, MDW ####[address] [place], [place] [address] .NEUABSOrdered By: SYSTEM SY STEM on 12-31-2023 Neutrophil, Absolute 3.9 103/mcL Normal 2.9-6.2 AO Workflow SS Comment on above: Performed By: #### C BC, LIP, ANEU, ADIFF, GFR, CMP, W ####[address] [place], [place] [address] CBCOrdered By: SYSTEM SYSTEM on 12-31-2023 Erythrocyte distribution width (RBC) [Ratio] 14.6 % High 11.5-14.5 AO Workflow SS Comment on above: Performed By: #### C BC, LIP, ANEU, ADIFF, GFR, CMP, W ####[address] [place], [place] [address] Hematocrit (Bld) [Volume fraction] 38.3 % Normal 37.0-47.0 AO Workflow SS Comment on above: Performed By: #### C BC, LIP, ANEU, ADIFF, GFR, CMP, MDW ####[address] [place], [place] [address] MCH (RBC) [Entitic mass] 27.4 pg Normal 27.0-31.2 AO Workflow SS Comment on above: Performed By: #### C BC, LIP, ANEU, ADIFF, GFR, CMP, W ####[address] [place], [place] [address] MCHC 33.9 G/dL Normal 33.0-37.0 AO Workflow SS Comment on above: Performed By: #### C BC, LIP, ANEU, ADIFF, GFR, CMP, MDW ####[address] [place], [place] [address] MCV (RBC) [Entitic vol] 80.7 fL Normal 80.0-94.0 AO Workflow SS Comment on above: Performed By: #### C BC, LIP, ANEU, ADIFF, GFR, CMP, MDW ####[address] [place], [place] [address] Platelet mean volume (Bld) [Entitic vol] 7.4 fL Normal 7.4-10.4 AO Workflow SS Comment on above: Performed By: #### C BC, LIP, ANEU, ADIFF, GFR, CMP, MDW ####[address] [place], [place] [address] CBCon 12-31-2023 Hgb 13.0 G/dL Normal 12.0-16.0 [facility] ([place]) Comment on above: Performed By: #### C BC, LIP, ANEU, ADIFF, GFR, CMP, W ####[address] [place], [place] [address] Platelet 419 10 3/mcL High 130-400 [facility] ([place]) Comment on above: Performed By: #### C BC, LIP, ANEU, ADIFF, GFR, CMP, W ####[address] [place], [place] [address] RBC 4.74 10 6/mcL Normal 4.20-5.40 [facility] ([place]) Comment on above: Performed By: #### C BC, LIP, ANEU, ADIFF, GFR, CMP, W ####[address] [place], [place] [address] WBC 8.2 10 3/mcL Normal 4.6-10.8 [facility] ([place]) Comment on above: Performed By: #### C BC, LIP, ANEU, ADIFF, GFR, CMP, TABATHA ####[address] [place], [place] [address] CMPon 12-31-2023 Albumin Level 3.6 G/dL Normal 3.5-5.0 [facility] ([place] Comment on above: Performed By: #### C BC, LIP, ANEU, ADIFF, GFR, CMP, TABATHA ####[address] [place], [place] [address] ALT [Catalytic activity/Vol] 32 U/L Normal 14-59 [facility] ([place]) Comment on above: Performed By: #### C BC, LIP, ANEU, ADIFF, GFR, CMP, TABATHA ####[address] [place], [place] [address] AST [Catalytic activity/Vol] 18 U/L Normal 10-40 [facility] ([place] Comment on above: Performed By: #### C BC, LIP, ANEU, ADIFF, GFR, CMP, TABATHA ####[address] [place], [place] [address] Bili Total 0.3 mg/dL Normal 0.2-1.0 [facility] ([place]) Comment on above: Result Comment: Use of this assay is not recommended for patients undergoing treatment with eltrombopag due to the potential for falsely elevated results. Performed By: #### C BC, LIP, ANEU, ADIFF, GFR, CMP, MDW ####[address] [place], [place] [address] BUN/Creatinine Ratio 14 ratio Normal 7-27 [facility] ([place]) Comment on above: Performed By: #### C BC, LIP, ANEU, ADIFF, GFR, CMP, W ####[address] [place], [place] [address] Total Protein 7.1 G/dL Normal 6.4-8.2 [facility] ([place]) Comment on above: Performed By: #### C BC, LIP, ANEU, ADIFF, GFR, CMP, W ####[address] [place], [place] [address] CMPOrdered By: SYSTEM SYSTEM on 12-31-2023 Albumin/Globulin [Mass ratio] 1.0 {ratio} Low 1.1-2.5 AO ADM SS Comment on above: Performed By: #### C BC, LIP, ANEU, ADIFF, GFR, CMP, MDW ####[address] [place], [place] [address] ALP [Catalytic activity/Vol] 64 U/L Normal 40-135 AO ADM SS Comment on above: Performed By: #### C BC, LIP, ANEU, ADIFF, GFR, CMP, MDW ####[address] [place], [place] [address] Calcium [Mass/Vol] 9.1 mg/dL Normal 8.4-10.2 AO ADM SS Comment on above: Performed By: #### C BC, LIP, ANEU, ADIFF, GFR, CMP, MDW ####[address] [place], [place] [address] Chloride [Moles/Vol] 104 mmol/L Normal 98-107 AO A DM SS Comment on above: Performed By: #### C BC, LIP, ANEU, ADIFF, GFR, CMP, MDW ####[address] [place], [place] [address] CO2 [Moles/Vol] 23 mmol/L Normal 22-29 AO ADM SS Comment on above: Performed By: #### C BC, LIP, ANEU, ADIFF, GFR, CMP, MDW ####[address] [place], [place] [address] Creatinine [Mass/Vol] 0.93 mg/dL Normal 0.55-1.02 AO ADM SS Comment on above: Performed By: #### C BC, LIP, ANEU, ADIFF, GFR, CMP, MDW ####[address] [place], [place] [address] Electrolyte Balance 11.0 mEq/L Normal 4.0-15.0 AO AD M SS Comment on above: Performed By: #### C BC, LIP, ANEU, ADIFF, GFR, CMP, MDW ####[address] [place], [place] [address] Globulin 3.5 G/dL Normal AO ADM SS Comment on above: Performed By: #### C BC, LIP, ANEU, ADIFF, GFR, CMP, W ####[address] [place], [place] [address] Glucose [Mass/Vol] 81 mg/dL Normal 70-105 AO ADM SS Comment on above: Performed By: #### C BC, LIP, ANEU, ADIFF, GFR, CMP, W ####[address] [place], [place] [address] Potassium [Moles/Vol] 4.3 mmol/L Normal 3.5-5.1 AO ADM SS Comment on above: Performed By: #### C BC, LIP, ANEU, ADIFF, GFR, CMP, W ####[address] [place], [place] [address] Sodium [Moles/Vol] 138 mmol/L Normal 136-145 AO ADM SS Comment on above: Performed By: #### C BC, LIP, ANEU, ADIFF, GFR, CMP, W ####[address] [place], [place] [address] Urea nitrogen [Mass/Vol] 13 mg/dL Normal 7-18 AO ADM SS Comment on above: Performed By: #### C BC, LIP, ANEU, ADIFF, GFR, CMP, MDW ####[address] [place], [place] [address] LABORATORYOrdered By: SYSTEM SYSTEM on 12-31-2023 Albumin BCP dye [Mass/Vol] 3.6 G/dL Normal 3.5 - 5.0 G/dL AO ADM SS ALT With P-5'-P [Catalytic activity/Vol] 32 U/L Normal 14 - 59 U/L AO ADM SS AST With P-5'-P [Catalytic activity/Vol] 18 U/L Normal 10 - 40 U/L AO ADM SS Bilirubin [Mass/Vol] 0.3 mg/dL Normal 0.2 - 1 .0 mg/dL AO ADM SS Comment on above: Interpretive Data: U se of this assay is not recommended for patients undergoing treatment with eltrombopag due to the potential for falsely elevated results. GFR/1.73 sq M.predicted among blacks MDRD (S/P/Bld) [Vol rate/Area] 89 ml/min/1.73sqm Invalid Interpretation Code AO Chemistry S Comment on above: Interpretive Data: GFR Population mean for , Non- Americans Ages 20-29 = 116 mL/min/1.73 sq.m. Ages 30-39 = 107 mL/min/1.73 sq.m. Ages 40-49 = 99 mL/min/1.73 sq.m. Ages 50-59 = 93 mL/min/1.73 sq.m. Ages 60-69 = 85 mL/min/1.73 sq.m. Ages 70+ = 75 mL/min/1.73 sq.m. Chronic Kidney Disease: Less than 60 mL/min/1.73 square meters End Stage Renal Disease: Less than 15 mL/min/1.73 square meters GFR/1.73 sq M.predicted among non-blacks MDRD (S/P/Bld) [Vol rate/Area] 73 ml/min/1.73sqm Invalid Interpretation Code AO Chemistry S Comment on above: Interpretive Data: GFR Population mean for , Non- Americans Ages 20-29 = 116 mL/min/1.73 sq.m. Ages 30-39 = 107 mL/min/1.73 sq.m. Ages 40-49 = 99 mL/min/1.73 sq.m. Ages 50-59 = 93 mL/min/1.73 sq.m. Ages 60-69 = 85 mL/min/1.73 sq.m. Ages 70+ = 75 mL/min/1.73 sq.m. Chronic Kidney Disease: Less than 60 mL/min/1.73 square meters End Stage Renal Disease: Less than 15 mL/min/1.73 square meters Hemoglobin (Bld) [Mass/Vol] 13.0 G/dL Normal 12.0 - 16.0 G/dL AO Workflow SS Lipase [Catalytic activity/Vol] 50 U/L Normal 16 - 77 U/L AO ADM SS Monocyte distribution width Auto (Bld) [Entitic vol] 21.79 1 High 0.00 - 20.00 AO Workflow SS Comment on above: Result Comment: For adults in ED, MDW>20.0 may be associated with a higher risk of sepsis during the first 12hrs of hospital admission Platelets (Bld) [#/Vol] 419 103/mcL High 130 - 400 10^3/mcL AO Workflow SS Protein [Mass/Vol] 7.1 G/dL Normal 6.4 - 8.2 G/dL AO ADM SS RBC (Bld) [#/Vol] 4.74 106/mcL Normal 4.20 - 5.4 0 10^6/mcL AO Workflow SS Urea nitrogen/Creatinine [Mass ratio] 14 ratio Normal 7 - 27 ratio AO ADM SS WBC (Bld) [#/Vol] 8.2 103/mcL Normal 4.6 - 10.8 10^3/mcL AO Workflow SS LABORATORYOrdered By: Mariposa osborn on 12-31-2023 Appearance (U) Clear (12/31/23 11:00 AM) Normal Clear AO Auto Urine SS Bilirubin Ql (U) Negative (12/31/23 11:00 AM) Normal Negative AO Auto Urine SS Color (U) Yellow (12/31/23 11:00 AM) Normal AO Auto Urine SS Glucose Test strip (U) [Mass/Vol] Negative Normal Negative AO Auto Urine SS HCG ( test) Ql Negative (12/31/23 11:00 AM) Normal AO Manual Urine SS Hemoglobin Auto test strip (U) [Mass/Vol] Trace *ABN* (12/31/23 11:00 AM) Invalid Interpretation Code Negative AO Auto Urine SS UA Leuk Est Negative (12/31/23 11:00 AM) Normal Negative AO Auto Urine SS UA Nitrite Negative (12/31/23 11:00 AM) Normal Negative AO Auto Urine SS UA pH 6.0 (12/31/23 11:00 AM) Normal 5.0 - 8.0 AO Auto Urine SS UA Spec Grav 1.020 (12/31/23 11:00 AM) Normal 1.015-1.025 AO Auto Urine SS UA Specimen Type Clean Catch (12/31/23 11:00 AM) Normal AO Auto Urine SS UA Urobilinogen 0.2 E.U./dL Normal 0.2-1.0 AO Auto Urine SS LIPon 12-31-2023 Lipase Level 50 U/L Normal 16-77 [facility] ([place]) Comment on above: Performed By: #### C BC, LIP, ANEU, ADIFF, GFR, CMP, MDW ####[address] [place], [place] [address] PREGUon 12-31-2023 HCG ( test) Ql (U) Negative Normal [facility] ([place]) Comment on above: Performed By: #### U A, PREGU ####[address] [place], [place] [address] PREGUOrdered By: Mariposa reis on 12-31-2023 test (u) int Not detected Invalid Interpretation Code AO Manual Urine SS Comment on above: Performed By: #### U A, PREGU ####[address] [place], [place] [address] UAon 12-31-2023 Color (U) Yellow Normal [facility] ([place]) Comment on above: Performed By: #### U A, PREGU ####[address] [place], [place] [address] Glucose (U) [Mass/Vol] Negative Normal Negative [facility] ([place]) Comment on above: Performed By: #### U A, PREGU ####[address] [place], [place] [address] UA Appear Clear Normal Clear [facility] ([place]) Comment on above: Performed By: #### U A, PREGU ####[address] [place], [place] [address] UA Blood Trace Abnormal Negative [facility] ([place] Comment on above: Performed By: #### U A, PREGU ####[address] [place] [address] UA Leuk Est Negative Normal Negative [facility] ([place] Comment on above: Performed By: #### U A, PREGU ####[address] [place] [address] UA Nitrite Negative Normal Negative [facility] ([place] Comment on above: Performed By: #### U A, PREGU ####[address] [place] [address] UA pH 6.0 Normal 5.0 - 8.0 [facility] ([place] Comment on above: Performed By: #### U A, PREGU ####[address] [place] [address] UA Spec Grav 1.020 Normal 1.015-1.025 [facility] ([place] Comment on above: Performed By: #### U A, PREGU ####[address] [place] [address] UA Specimen Type Clean Catch Normal [facility] ([place] Comment on above: Performed By: #### U A, PREGU ####[address] [place] [address] UA Urobilinogen 0.2 E.U./dL Normal 0.2-1.0 [facility] ([place] Comment on above: Performed By: #### U A, PREGU ####[address] [place] [address] Urobilinogen (U) [Mass/Vol] Negative Normal Negative [facility] ([place]) Comment on above: Performed By: #### U A, PREGU ####[address] [place] [address] UAOrdered By: Mariposa walker chato 12-31-2023 Ketones Ql (U) Negative Normal Negative AO Auto Ur ine SS Comment on above: Performed By: #### U A, PREGU ####[address] [place], [place] [address] UA Protein Negative Normal Negative AO Auto Urine SS Comment on above: Performed By: #### U A, PREGU ####[address] [place], [place] [address] US ABDOMEN LIMITEDon 024 US ABDOMEN LIMITED ORIGINAL EXAMINATION: LIMITED ABDOMINAL ULTRASOUND12/31/2023 11:39 am Limited ultrasound of the abdomen attention right upper quadrant COMPARISON: CT 12/20/2023 HISTORY: ORDERING SYSTEM PROVIDED HISTORY: Reason for Exam: abdominal pain, suspected gallstones on CT FINDINGS: The gallbladder is distended satisfactorily without calculi, wall thickening, pericholecystic edema or tenderness. There is no intrahepatic bile duct dilatation. The common duct is 4 mm at the glendy hepatis. The visualized liver shows coarsening of echotexture and mildly increased echogenicity. Although nonspecific, this is usually from fatty infiltration. No suspicious focal mass is seen. No obvious nodularity of the liver margins. There is some focal fatty sparing most prominent adjacent to the gallbladder. The pancreas is mostly obscured by bowel gas artifacts and poorly evaluated. No ascites is seen in the RIGHT upper quadrant. Limited survey images of the RIGHT kidney show normal cortical thickness and echogenicity with no pelvocaliectasis. IMPRESSION: Hepatic steatosis or other diffuse hepatocellular disease. No acute findings. No gallstones or signs of acute cholecystitis. Interpreted by: Josi Turk MD Preliminary Report By: Josi Turk MD Electronically signed By Josi Turk MD Dictated Date: 12/31/2023 11:41:45 AM Prelim Date: 12/31/2023 11:44:10 AM Sign Date: 12/31/2023 11:44:10 AM Ordering Provider: VERENA Swenson [facility] ([place]) .Auto Diffon 12-20-2023 Basophil, Absolute 0.0 10 3/mcL Normal 0.0-0.2 [facility] ([place]) Comment on above: Performed By: #### P RO, CBC, ADIFF, MDW, GFR, CMP, ANEU, LAC ####[address] [place], [place] [address] Basophils/100 WBC (Bld) 0.3 % Normal 0.0-2.5 [facility] ([place]) Comment on above: Performed By: #### P RO, CBC, ADIFF, MDW, GFR, CMP, ANEU, LAC ####[address] [place], [place] [address] Eosinophil, Absolute 0.5 10 3/mcL High 0.0-0.4 [facility] ([place]) Comment on above: Performed By: #### P RO, CBC, ADIFF, MDW, GFR, CMP, ANEU, LAC ####[address] [place], [place] [address] Eosinophils/100 WBC (Bld) 5.9 % Normal 0.0-7.0 [facility] ([place]) Comment on above: Performed By: #### P RO, CBC, ADIFF, MDW, GFR, CMP, ANEU, LAC ####[address] [place], [place] [address] Lymphocyte, Absolute 1.5 10 3/mcL Normal 0.8-3.9 [facility] ([place]) Comment on above: Performed By: #### P RO, CBC, ADIFF, MDW, GFR, CMP, ANEU, LAC ####[address] [place], [place] [address] Lymphocytes/100 WBC (Bld) 18.4 % Normal 10.0-50.0 [facility] ([place]) Comment on above: Performed By: #### P RO, CBC, ADIFF, MDW, GFR, CMP, ANEU, LAC ####[address] [place], [place] [address] Monocyte, Absolute 0.3 10 3/mcL Normal 0.2-1.0 [facility] ([place]) Comment on above: Performed By: #### P RO, CBC, ADIFF, MDW, GFR, CMP, ANEU, LAC ####[address] [place], [place] [address] Monocytes/100 WBC (Bld) 3.7 % Normal 1.7-13.0 [facility] ([place]) Comment on above: Performed By: #### P RO, CBC, TABATHA ALLISON, GFR, CMP, ANEU, LAC ####[address] [place], [place] [address] Neutrophils/100 WBC (Bld) 71.7 % Normal 37.0-80.0 [facility] ([place]) Comment on above: Performed By: #### P RO, CBC, TABATHA ALLISON, GFR, CMP, ANEU, LAC ####[address] [place], [place] [address] .GFRon 12-20-2023 GFR 78 ml/min/1.73sqm Normal [facility] ([place]) Comment on above: Result Comment: GFR Population mean for , Non- Americans Ages 20-29 = 116 mL/min/1.73 sq.m. Ages 30-39 = 107 mL/min/1.73 sq.m. Ages 40-49 = 99 mL/min/1.73 sq.m. Ages 50-59 = 93 mL/min/1.73 sq.m. Ages 60-69 = 85 mL/min/1.73 sq.m. Ages 70+ = 75 mL/min/1.73 sq.m. Chronic Kidney Disease: Less than 60 mL/min/1.73 square meters End Stage Renal Disease: Less than 15 mL/min/1.73 square meters Performed By: #### P RO, CBC, TABATHA ALLISON, GFR, CMP, ANEU, LAC ####[address] [place], [place] [address] GFR Non- 65 ml/min/1.73sqm Normal [facility] ([place]) Comment on above: Result Comment: GFR Population mean for , Non- Americans Ages 20-29 = 116 mL/min/1.73 sq.m. Ages 30-39 = 107 mL/min/1.73 sq.m. Ages 40-49 = 99 mL/min/1.73 sq.m. Ages 50-59 = 93 mL/min/1.73 sq.m. Ages 60-69 = 85 mL/min/1.73 sq.m. Ages 70+ = 75 mL/min/1.73 sq.m. Chronic Kidney Disease: Less than 60 mL/min/1.73 square meters End Stage Renal Disease: Less than 15 mL/min/1.73 square meters Performed By: #### P RO, CBC, ADIFF, MDW, GFR, CMP, ANEU, LAC ####[address] [place], [place] [address] .MDWon 12-20-2023 Monocyte Distribution Width 18.34 Normal 0.00-20.00 [facility] ([place]) Comment on above: Result Comment: For ED adult patients suspected of sepsis, MDW<=20.0 does not rule out sepsis or risk of sepsis Performed By: #### P RO, CBC, ADIFF, MDW, GFR, CMP, ANEU, LAC ####[address] [place], [place] [address] .NEUABSon 12-20-2023 Neutrophil, Absolute 5.9 10 3/mcL Normal 2.9-6.2 [facility] ([place]) Comment on above: Performed By: #### P RO, CBC, ADIFF, MDW, GFR, CMP, ANEU, LAC ####[address] [place] [id number] .Urinalysis Microscopic (AO) on 12-20-2023 UA Bacteria 1+ /hpf Abnormal [facility] ([place]) Comment on above: Performed By: #### U A, PREGU, UAMICAO ####[address] [place], [place] [address] UA Mucous 1+ /hpf Normal [facility] ([place]) Comment on above: Performed By: #### U A, PREGU, UAMICAO ####[address] [place], [place] [address] UA RBC 0-5 Abnormal None Seen [facility] ([place]) Comment on above: Performed By: #### U A, PREGU, UAMICAO ####[address] [place], [place] [address] UA Squam Epithelial 0-5 Abnormal None Seen [facility] ([place]) Comment on above: Performed By: #### U A, MAXIMU, UAMICAO ####[address] [place], [place] [address] UA WBC 5-10 Abnormal None Seen [facility] [place]) Comment on above: Performed By: #### U A, PREGU, UAMICAO ####[address] [place], [place] [address] CBCon 12-20-2023 Erythrocyte distribution width (RBC) [Ratio] 14.5 % Normal 11.5-14.5 [facility] ([place]) Comment on above: Performed By: #### P RO, CBC, ADIFF, MDW, GFR, CMP, ANEU, LAC ####[address] [place], [place] [address] Hematocrit (Bld) [Volume fraction] 38.9 % Normal 37.0-47.0 [facility]) Comment on above: Performed By: #### P RO, CBC, ADIFF, MDW, GFR, CMP, ANEU, LAC ####[address] [place], [place] [address] Hgb 13.2 G/dL Normal 12.0-16.0 [facility] ([place]) Comment on above: Performed By: #### P RO, CBC, ADIFF, MDW, GFR, CMP, ANEU, LAC ####[address] [place], [place] [address] MCH (RBC) [Entitic mass] 27.6 pg Normal 27.0-31.2 [facility] ([place]) Comment on above: Performed By: #### P RO, CBC, ADIFF, MDW, GFR, CMP, ANEU, LAC ####[address] [place], [place] [address] MCHC 33.8 G/dL Normal 33.0-37.0 [facility] ([place]) Comment on above: Performed By: #### P RO, CBC, ADIFF, MDW, GFR, CMP, ANEU, LAC ####[address] [place], [place] [address] MCV (RBC) [Entitic vol] 81.6 fL Normal 80.0-94.0 [facility] ([place] Comment on above: Performed By: #### P RO, CBC, ADIFF, MDW, GFR, CMP, ANEU, LAC ####[address] [place], [place] [address] Platelet 335 10 3/mcL Normal 130-400 [facility] ([place]) Comment on above: Performed By: #### P RO, CBC, ADIFF, MDW, GFR, CMP, ANEU, LAC ####[address] [place], [place] [address] Platelet mean volume (Bld) [Entitic vol] 7.8 fL Normal 7.4-10.4 [facility] ([place]) Comment on above: Performed By: #### P RO, CBC, ADIFF, MDW, GFR, CMP, ANEU, LAC ####[address] [place], [place] [address] RBC 4.77 10 6/mcL Normal 4.20-5.40 [facility] ([place]) Comment on above: Performed By: #### P RO, CBC, ADIFF, MDW, GFR, CMP, ANEU, LAC ####[address] [place], [place] [address] WBC 8.2 10 3/mcL Normal 4.6-10.8 [facility] ([place] Comment on above: Performed By: #### P RO, CBC, ADIFF, MDW, GFR, CMP, ANEU, LAC ####[address] [place], [place] [address] CMPon 12-20-2023 Albumin Level 3.6 G/dL Normal 3.5-5.0 [facility] ([place]) Comment on above: Performed By: #### P RO, CBC, ADIFF, MDW, GFR, CMP, ANEU, LAC ####[address] [place], [place] [address] Albumin/Globulin [Mass ratio] 1.0 {ratio} Low 1.1-2.5 [facility] ([place]) Comment on above: Performed By: #### P RO, CBC, ADIFF, MDW, GFR, CMP, ANEU, LAC ####[address] [place], [place] [address] ALP [Catalytic activity/Vol] 79 U/L Normal 40-135 [facility] ([place]) Comment on above: Performed By: #### P RO, CBC, ADIFF, MDW, GFR, CMP, ANEU, LAC ####[address] [place], [place] [address] ALT [Catalytic activity/Vol] 51 U/L Normal 14-59 [facility] ([place]) Comment on above: Performed By: #### P RO, CBC, ADIFF, MDW, GFR, CMP, ANEU, LAC ####[address] [place], [place] [address] AST [Catalytic activity/Vol] 46 U/L High 10-40 [facility] ([place]) Comment on above: Performed By: #### P RO, CBC, ADIFF, MDW, GFR, CMP, ANEU, LAC ####[address] [place], [place] [address] Bili Total 0.3 mg/dL Normal 0.2-1.0 [facility] ([place]) Comment on above: Result Comment: Use of this assay is not recommended for patients undergoing treatment with eltrombopag due to the potential for falsely elevated results. Performed By: #### P RO, CBC, ADIFF, MDW, GFR, CMP, ANEU, LAC ####[address] [place], [place] [address] BUN/Creatinine Ratio 8 ratio Normal 7-27 [facility] ([place]) Comment on above: Performed By: #### P RO, CBC, ADIFF, MDW, GFR, CMP, ANEU, LAC ####[address] [place], [place] [address] Calcium [Mass/Vol] 9.0 mg/dL Normal 8.4-10.2 [facility] ([place]) Comment on above: Performed By: #### P RO, CBC, ADIFF, MDW, GFR, CMP, ANEU, LAC ####[address] [place], [place] [address] Chloride [Moles/Vol] 104 mmol/L Normal 98-107 [facility] ([place]) Comment on above: Performed By: #### P RO, CBC, ADIFF, MDW, GFR, CMP, ANEU, LAC ####[address] [place], [place] [address] CO2 [Moles/Vol] 24 mmol/L Normal 22-29 [facility] ([place]) Comment on above: Performed By: #### P RO, CBC, ADIFF, MDW, GFR, CMP, ANEU, LAC ####[address] [place], [place] [address] Creatinine [Mass/Vol] 1.04 mg/dL High 0.55-1.02 [facility] ([place]) Comment on above: Performed By: #### P RO, CBC, ADIFF, MDW, GFR, CMP, ANEU, LAC ####[address] [place], [place] [address] Electrolyte Balance 13.0 mEq/L Normal 4.0-15.0 [facility] ([place]) Comment on above: Performed By: #### P RO, CBC, ADIFF, MDW, GFR, CMP, ANEU, LAC ####[address] [place], [place] [address] Globulin 3.5 G/dL Normal [facility] ([place] Comment on above: Performed By: #### P RO, CBC, ADIFF, MDW, GFR, CMP, ANEU, LAC ####[address] [place], [place] [address] Glucose [Mass/Vol] 107 mg/dL High 70-105 [facility] ([place]) Comment on above: Performed By: #### P RO, CBC, ADIFF, MDW, GFR, CMP, ANEU, LAC ####[address] [place], [place] [address] Potassium [Moles/Vol] 3.7 mmol/L Normal 3.5-5.1 [facility] ([place]) Comment on above: Performed By: #### P RO, CBC, ADIFF, MDW, GFR, CMP, ANEU, LAC ####[address] [place], [place] [address] Sodium [Moles/Vol] 141 mmol/L Normal 136-145 [facility] ([place]) Comment on above: Performed By: #### P RO, CBC, ADIFF, MDW, GFR, CMP, ANEU, LAC ####[address] [place], [place] [address] Total Protein 7.1 G/dL Normal 6.4-8.2 [facility] ([place] Comment on above: Performed By: #### P RO, CBC, ADIFF, MDW, GFR, CMP, ANEU, LAC ####[address] [place], [place] [address] Urea nitrogen [Mass/Vol] 8 mg/dL Normal 7-18 [facility] ([place] Comment on above: Performed By: #### P RO, CBC, ADIFF, MDW, GFR, CMP, ANEU, LAC ####[address] [place], [place] [address] CT ABD/PELVIS W/ IV CONTRAST ONLYon 12-20-2023 CT ABD/PELVIS W/ IV CONTRAST ONLY ORIGINAL EXAMINATION: CT OF THE ABDOMEN AND PELVIS WITH CONTRAST12/20/2023 7:12 pm TECHNIQUE: CT of the abdomen and pelvis was performed with the administration of intravenous contrast. Multiplanar reformatted images are provided for review. Automated exposure control, iterative reconstruction, and/or weight based adjustment of the mA/kV was utilized to reduce the radiation dose to as low as reasonably achievable. COMPARISON: CT abdomen/pelvis 03/04/2020 HISTORY: ORDERING SYSTEM PROVIDED HISTORY: Reason for Exam: pain FINDINGS: The liver is unremarkable in contour. Diffuse hypoattenuation of liver with focal hyperdensity about the gallbladder fossa consistent with hepatic steatosis with focal fatty sparing. No suspicious hepatic lesions. There is no intra or extrahepatic biliary duct dilation. Small cholelithiasis and/or sludge; otherwise, unremarkable appearance of the gallbladder. The pancreas, spleen, and bilateral adrenal glands are unremarkable. The kidneys enhance symmetrically without evidence of hydronephrosis or suspicious lesions. The urinary bladder is without wall thickening or focal mass. Bilateral adnexal cysts, 2.6 cm on the right and 3.8 cm on the left; no follow-up is required. No suspicious uterine or adnexal lesions. No acute abnormality within visualized GI tract.No pericecal inflammation. No free air, free fluid, or drainable fluid collection within the abdomen or pelvis. No pathologically enlarged or aggressive appearing lymph nodes. Nonaneurysmal aortoiliac arteries. No acute osseous abnormality. No aggressive appearing osseous lesions. No acute abnormality within the partially visualized lower thorax. IMPRESSION: No acute process within the abdomen or pelvis. Cholelithiasis. Bilateral simple adnexal cysts. No follow-up is required. I have personally reviewed the images of this examination and agree with the resident's findings and interpretation. Interpreted by: Ham Reich Preliminary Report By: Henok Avendano Electronically signed By Ham Reich Dictated Date: 12/20/2023 7:38:19 PM Prelim Date: 12/20/2023 7:47:18 PM Sign Date: 12/20/2023 7:51:57 PM Ordering Provider: EUNICE Swenson [facility] hospital) Day 12-20-2023 FLU A PCR Negative Normal Negative [facility] ([place]) Comment on above: Performed By: #### C VFLURV ####[place] [address] [place], [place] [address] FLU B PCR Negative Normal Negative [facility]) Comment on above: Performed By: #### C VFLURV ####[address] [place], [place] [address] RSV PCR Negative Normal Negative [facility]) Comment on above: Performed By: #### C VFLURV ####[place] [address] [place], [place] [address] SARS-CoV-2 (COVID-19) RNA KATEY+probe Ql (Unsp spec) Negative Normal Negative Critical [facility] hospital) Comment on above: Result Comment: Resu lts from the Xpert Xpress CoV-2/Flu/RSV plus test should be correlated with the clinical history, epidemiological data, and other data available to the clinical evaluating the patient. Performance of the Xpert Xpress CoV-2/Flu/RSV plus test has only been established in nasopharyngeal swab specimen. Erroneous test results might occur from improper specimen collection, failure to follow the recommended sample collection, handling and storage procedures, technical error, or sample mix-up. False negative results may occur if a virus is present at a level below the analytical limit of detection. Viral nucleic acid may persist in vivo, independent of virus viability. Detection of analyte target(s) does not imply that the corresponding virus(es) are infectious or are the causative agents for clinical symptoms. Recent patient exposure to FluMist or other live attenuated influenza vaccines may cause inaccurate positive results. Performed By: #### C [facility] ####[address] [place], [place] [address] LABORATORYOrdered By: SYSTEM SYSTEM on 12-20-2023 Lactate [Moles/Vol] 1.4 mmol/L Normal 0.4 - 2. 0 mmol/L AO ADM SS Albumin BCP dye [Mass/Vol] 3.6 G/dL Normal 3.5 - 5.0 G/dL AO ADM SS Albumin/Globulin [Mass ratio] 1.0 {ratio} Low 1.1 - 2.5 ratio AO ADM SS ALP [Catalytic activity/Vol] 79 U/L Normal 40 - 135 U/L AO ADM SS ALT With P-5'-P [Catalytic activity/Vol] 51 U/L Normal 14 - 59 U/L AO ADM SS AST With P-5'-P [Catalytic activity/Vol] 46 U/L High 10 - 40 U/L AO ADM SS Basophil, Absolute 0.0 103/mcL Normal 0.0 - 0.2 10^3/mcL AO Workflow SS Basophils/100 WBC (Bld) 0.3 % Normal 0.0 - 2.5 % AO Workflow SS Bilirubin [Mass/Vol] 0.3 mg/dL Normal 0.2 - 1 .0 mg/dL AO ADM SS Comment on above: Interpretive Data: U se of this assay is not recommended for patients undergoing treatment with eltrombopag due to the potential for falsely elevated results. Calcium [Mass/Vol] 9.0 mg/dL Normal 8.4 - 10. 2 mg/dL AO ADM SS Chloride [Moles/Vol] 104 mmol/L Normal 98 - 10 7 mmol/L AO ADM SS CO2 [Moles/Vol] 24 mmol/L Normal 22 - 29 mmol/L AO ADM SS Creatinine [Mass/Vol] 1.04 mg/dL High 0.55 - 1.02 mg/dL AO ADM SS Electrolyte Balance 13.0 mEq/L Normal 4.0 - 15 .0 mEq/L AO ADM SS Eosinophil, Absolute 0.5 103/mcL High 0.0 - 0 .4 10^3/mcL AO Workflow SS Eosinophils/100 WBC (Bld) 5.9 % Normal 0.0 - 7.0 % AO Workflow SS Erythrocyte distribution width (RBC) [Ratio] 14.5 % Normal 11.5 - 14.5 % AO Workflow SS GFR/1.73 sq M.predicted among blacks MDRD (S/P/Bld) [Vol rate/Area] 78 ml/min/1.73sqm Invalid Interpretation Code AO Chemistry S Comment on above: Interpretive Data: GFR Population mean for , Non- Americans Ages 20-29 = 116 mL/min/1.73 sq.m. Ages 30-39 = 107 mL/min/1.73 sq.m. Ages 40-49 = 99 mL/min/1.73 sq.m. Ages 50-59 = 93 mL/min/1.73 sq.m. Ages 60-69 = 85 mL/min/1.73 sq.m. Ages 70+ = 75 mL/min/1.73 sq.m. Chronic Kidney Disease: Less than 60 mL/min/1.73 square meters End Stage Renal Disease: Less than 15 mL/min/1.73 square meters GFR/1.73 sq M.predicted among non-blacks MDRD (S/P/Bld) [Vol rate/Area] 65 ml/min/1.73sqm Invalid Interpretation Code AO Chemistry S Comment on above: Interpretive Data: GFR Population mean for , Non- Americans Ages 20-29 = 116 mL/min/1.73 sq.m. Ages 30-39 = 107 mL/min/1.73 sq.m. Ages 40-49 = 99 mL/min/1.73 sq.m. Ages 50-59 = 93 mL/min/1.73 sq.m. Ages 60-69 = 85 mL/min/1.73 sq.m. Ages 70+ = 75 mL/min/1.73 sq.m. Chronic Kidney Disease: Less than 60 mL/min/1.73 square meters End Stage Renal Disease: Less than 15 mL/min/1.73 square meters Globulin 3.5 G/dL Invalid Interpretation Code AO ADM SS Glucose [Mass/Vol] 107 mg/dL High 70 - 105 mg/dL AO ADM SS Hematocrit (Bld) [Volume fraction] 38.9 % Normal 37.0 - 47.0 % AO Workflow SS Hemoglobin (Bld) [Mass/Vol] 13.2 G/dL Normal 12.0 - 16.0 G/dL AO Workflow SS Lactate [Moles/Vol] 2.6 mmol/L High 0.4 - 2. 0 mmol/L AO ADM SS Lymphocyte, Absolute 1.5 103/mcL Normal 0.8 - 3 .9 10^3/mcL AO Workflow SS Lymphocytes/100 WBC (Bld) 18.4 % Normal 10.0 - 50.0 % AO Workflow SS MCH (RBC) [Entitic mass] 27.6 pg Normal 27.0 - 31.2 pg AO Workflow SS MCHC 33.8 G/dL Normal 33.0 - 37.0 G/dL AO Workflow SS MCV (RBC) [Entitic vol] 81.6 fL Normal 80.0 - 94.0 fL AO Workflow SS Monocyte distribution width Auto (Bld) [Entitic vol] 18.34 1 Normal 0.00 - 20.00 AO Workflow SS Comment on above: Result Comment: For ED adult patients suspected of sepsis, MDW<=20.0 does not rule out sepsis or risk of sepsis Monocyte, Absolute 0.3 103/mcL Normal 0.2 - 1.0 10^3/mcL AO Workflow SS Monocytes/100 WBC (Bld) 3.7 % Normal 1.7 - 13.0 % AO Workflow SS Neutrophil, Absolute 5.9 103/mcL Normal 2.9 - 6 .2 10^3/mcL AO Workflow SS Neutrophils/100 WBC (Bld) 71.7 % Normal 37.0 - 80.0 % AO Workflow SS Platelet mean volume (Bld) [Entitic vol] 7.8 fL Normal 7.4 - 10.4 fL AO Workflow SS Platelets (Bld) [#/Vol] 335 103/mcL Normal 130 - 400 10^3/mcL AO Workflow SS Potassium [Moles/Vol] 3.7 mmol/L Normal 3.5 - 5.1 mmol/L AO ADM SS Protein [Mass/Vol] 7.1 G/dL Normal 6.4 - 8.2 G/dL AO ADM SS RBC (Bld) [#/Vol] 4.77 106/mcL Normal 4.20 - 5.4 0 10^6/mcL AO Workflow SS Sodium [Moles/Vol] 141 mmol/L Normal 136 - 145 mmol/L AO ADM SS Urea nitrogen [Mass/Vol] 8 mg/dL Normal 7 - 18 mg/dL AO ADM SS Urea nitrogen/Creatinine [Mass ratio] 8 ratio Normal 7 - 27 ratio AO ADM SS WBC (Bld) [#/Vol] 8.2 103/mcL Normal 4.6 - 10.8 10^3/mcL AO Workflow SS LABORATORYOrdered By: Lynne Wiley on 12-20-2023 Appearance (U) Slightly Cloudy *ABN* (12/20/23 5:03 PM) Invalid Interpretation Code Clear AO Auto Urine SS Bacteria LM.HPF (Urine sed) [#/Area] 1 /[HPF] Invalid Interpretation Code AO Auto Urine SS Bilirubin Ql (U) Negative (12/20/23 5:03 PM) Normal Negative AO Auto Urine SS Color (U) Yellow (12/20/23 5:03 PM) Normal AO Auto Urine SS FLUAV RNA KATEY+probe Ql (Resp) Negative (12/20/23 5:03 PM) Normal Negative AO Auto Urine SS FLUBV RNA KATEY+probe Ql (Resp) Negative (12/20/23 5:03 PM) Normal Negative AO Auto Urine SS Glucose Test strip (U) [Mass/Vol] Negative Normal Negative AO Auto Urine SS HCG ( test) Ql Negative (12/20/23 5:03 PM) Normal AO Manual Urine SS Hemoglobin Auto test strip (U) [Mass/Vol] Trace *ABN* (12/20/23 5:03 PM) Invalid Interpretation Code Negative AO Auto Urine SS INR Coag (PPP) [Relative time] 1.0 {INR} Invalid Interpretation Code AO HemoHub SS Comment on above: Interpretive Data: Manuel peterson [employer] (CHEST, 1992, 102:312S-25S) recommended therapeutic range for oral anticoagulant therapy is: LOW RISK: Prophylaxis of venous thrombosis INR: 2.0-3.0 Treatment of pulmonary embolism 2.0-3.0 Prevention of systemic embolism 2.0-3.0 HIGH RISK: Mechanical prosthetic valves 2.5-3.5 Ketones Ql (U) Negative Normal Negative AO Auto Ur ine SS test (u) int Not detected Invalid Interpretation Code AO Manual Urine SS PT Coag (PPP) [Time] 11.7 s Normal 9.0 - 1 4.2 seconds AO HemoHub SS RSV RNA KATEY+probe Ql (Resp) Negative (12/20/23 5:03 PM) Normal Negative AO Auto Urine SS SARS-CoV-2 (COVID-19) RNA KATEY+probe Ql (Resp) Negative 4 (12/20/23 5:03 PM) Normal Negative AO Auto Urine SS Comment on above: Interpretive Data: R esults from the Xpert Xpress CoV-2/Flu/RSV plus test should be correlated with the clinical history, epidemiological data, and other data available to the clinical evaluating the patient. Performance of the Xpert Xpress CoV-2/Flu/RSV plus test has only been established in nasopharyngeal swab specimen. Erroneous test results might occur from improper specimen collection, failure to follow the recommended sample collection, handling and storage procedures, technical error, or sample mix-up. False negative results may occur if a virus is present at a level below the analytical limit of detection. Viral nucleic acid may persist in vivo, independent of virus viability. Detection of analyte target(s) does not imply that the corresponding virus(es) are infectious or are the causative agents for clinical symptoms. Recent patient exposure to FluMist or other live attenuated influenza vaccines may cause inaccurate positive results. UA Leuk Est Small *ABN* (12/20/23 5:03 PM) Invalid Interpretation Code Negative AO Auto Urine SS UA Mucous 1+ /HPF Normal AO Auto Urine SS UA Nitrite Negative (12/20/23 5:03 PM) Normal Negative AO Auto Urine SS UA pH 6.0 (12/20/23 5:03 PM) Normal 5.0 - 8.0 AO Auto Urine SS UA Protein Negative Normal Negative AO Auto Urine SS UA RBC 0-5 /HPF Invalid Interpretation Code None Seen AO Auto Urine SS UA Spec Grav >=1.030 *ABN* (12/20/23 5:03 PM) Invalid Interpretation Code 1.015-1.025 AO Auto Urine SS UA Specimen Type Clean Catch (12/20/23 5:03 PM) Normal AO Auto Urine SS UA Squam Epithelial 0-5 /HPF Invalid Interpretation Code None Seen AO Auto Urine SS UA Urobilinogen 0.2 E.U./dL Normal 0.2-1.0 AO Auto Urine SS WBC LM.HPF (Urine sed) [#/Area] 5-10 /HPF Invalid Interpretation Code None Seen AO Auto Urine SS LACon 12-20-2023 Lactic Acid Lvl 1.4 mmol/L Normal 0.4-2.0 [facility] ([place]) Comment on above: Performed By: #### L AC ####[address] [place], [place] [address] Lactic Acid Lvl 2.6 mmol/L High 0.4-2.0 [facility] ([place]) Comment on above: Performed By: #### P RO, CBC, ADNADINE, MDW, GFR, CMP, ANEU, LAC ####[address] [place], [place] [address] PREGUon 12-20-2023 HCG ( test) Ql (U) Negative Normal [facility] ([place]) Comment on above: Performed By: #### U A, PREGU, UAM[place]O ####[address] [place], [place] [address] test (u) int Not detected Invalid Interpretation Code [facility] ([place]) Comment on above: Performed By: #### U A, PREGU, [place]AM[place]O ####[address] [place], [place] [address] PROon 12-20-2023 PT Coag (PPP) [Time] 11.7 s Normal 9.0-14.2 [facility]) Comment on above: Performed By: #### P RO, CBC, ESTEFANY, MDW, GFR, CMP, ANEU, LAC ####[address] [place], [place] [address] PT International Ratio 1.0 Normal [facility] ([place]) Comment on above: Result Comment: [employer] (CHEST, 1992, 102:312S-25S) recommended therapeutic range for oral anticoagulant therapy is: LOW RISK: Prophylaxis of venous thrombosis INR: 2.0-3.0 Treatment of pulmonary embolism 2.0-3.0 Prevention of systemic embolism 2.0-3.0 HIGH RISK: Mechanical prosthetic valves 2.5-3.5 Performed By: #### P RO, CBC, ADNADINE, MDW, GFR, CMP, ANEU, LAC ####[address] [place], [place] [address] UAon 12-20-2023 Color (U) Yellow Normal [facility] ([place]) Comment on above: Performed By: #### U A, PREGU, UAM[place]O ####[address] [place], [place] [address] Glucose (U) [Mass/Vol] Negative Normal Negative [facility] ([place]) Comment on above: Performed By: #### U A, PREGU, [place] ####[address] [place], [place] [address] Ketones Ql (U) Negative Normal Negative [facility] ([place]) Comment on above: Performed By: #### U A, PREGU, [place]AM[place]O ####[address] [place], [place] [address] UA Appear Slightly Cloudy Abnormal Clear [facility] ([place]) Comment on above: Performed By: #### U A, PREGU, [place]O ####[address] [place], [place] [address] UA Blood Trace Abnormal Negative [facility] ([place]) Comment on above: Performed By: #### U A, PREGU, [place] ####[address] [place], [place] [address] UA Leuk Est Small Abnormal Negative [facility] ([place]) Comment on above: Performed By: #### U A, PREGU, [place]O ####[address] [place], [place] [address] UA Nitrite Negative Normal Negative [facility] ([place]) Comment on above: Performed By: #### U A, PREGU, [place] ####[address] [place], [place] [address] UA pH 6.0 Normal 5.0 - 8.0 [facility] ([place]) Comment on above: Performed By: #### U A, PREGU, [place]O ####[address] [place], [place] [address] UA Protein Negative Normal Negative [facility] ([place]) Comment on above: Performed By: #### U A, PREGU, [place] ####[address] [place], [place] [address] UA Spec Grav >=1.030 Abnormal 1.015-1.025 [facility] ([place]) Comment on above: Performed By: #### U A, PREGU, [place] ####[address] [place], [place] [address] UA Specimen Type Clean Catch Normal [facility] ([place]) Comment on above: Performed By: #### U A, PREGU, [place] ####[address] [place], [place] [address] UA Urobilinogen 0.2 E.U./dL Normal 0.2-1.0 [facility] ([place]) Comment on above: Performed By: #### U A, PREGU, [place]AM[place]O ####[address] [place], [place] [address] Urobilinogen (U) [Mass/Vol] Negative Normal Negative [facility] ([place]) Comment on above: Performed By: #### U A, PREGU, [place]O ####[address] [place], [place] [address] XR CHEST 1 VIEWon 12-20-2023 XR CHEST 1 VIEW ORIGINAL EXAMINATION: ONE XRAY VIEW OF THE CHEST 12/20/2023 5:35 pm COMPARISON: 10/30/2020 HISTORY: ORDERING SYSTEM PROVIDED HISTORY: Reason for Exam: fever, pain or tachypnea FINDINGS: The cardiomediastinal silhouette appears normal. There is no focal consolidation. There is no pulmonary edema. There is no evidence of pleural effusion. There is no evidence of pneumothorax. No fracture is identified. IMPRESSION: No acute abnormality is identified. Interpreted by: Ham Reich Preliminary Report By: Ham Reich Electronically signed By Ham Reich Dictated Date: 12/20/2023 5:42:29 PM Prelim Date: 12/20/2023 5:43:21 PM Sign Date: 12/20/2023 5:43:21 PM Ordering Provider: EUNICE STARK [facility] ([place]) 36on 10-14-2023 36 Left voice message f or pt to call to sk new pt appt. [facility] LABORATORYOrdered By: Shawn Hairston on 09-11-2023 Adenovirus 40+41 DNA KATEY+non-probe Ql (Stl) Not Detected *NA* (09/11/23 9:10 AM) Invalid Interpretation Code Not Detected AH Auto Microbiology GL SS Astrovirus subtypes 1-8 RNA KATEY+non-probe Ql (Stl) Not Detected *NA* (09/11/23 9:10 AM) Invalid Interpretation Code Not Detected AH Auto Microbiology GL SS C. cayetanensis DNA KATEY+non-probe Ql (Stl) Not Detected *NA* (09/11/23 9:10 AM) Invalid Interpretation Code Not Detected AH Auto Microbiology GL SS C. coli+jejuni+upsaliensi s DNA KATEY+non-probe Ql (Stl) Not Detected *NA* (09/11/23 9:10 AM) Invalid Interpretation Code Not Detected AH Auto Microbiology GL SS Cryptosporidium sp DNA KATEY+non-probe Ql (Stl) Not Detected *NA* (09/11/23 9:10 AM) Invalid Interpretation Code Not Detected AH Auto Microbiology GL SS E. coli enteroaggregative Rodrick plasmid aggR+aatA genes KATEY+non-probe Ql (Stl) Not Detected *NA* (09/11/23 9:10 AM) Invalid Interpretation Code Not Detected AH Auto Microbiology GL SS E. coli enteropathogenic eae gene KATEY+non-probe Ql (Stl) Detected *ABN* (09/11/23 9:10 AM) Invalid Interpretation Code Not Detected AH Auto Microbiology GL SS E. coli enterotoxigenic ltA+st1a+st1b genes KATEY+non-probe Ql (Stl) Not Detected *NA* (09/11/23 9:10 AM) Invalid Interpretation Code Not Detected [facility] GL SS E. coli O157 DNA KATEY+non-probe Ql (Stl) Not Applicable (09/11/23 9:10 AM) Invalid Interpretation Code Not Detected [facility] Auto Microbiology GL SS E. coli stx1+stx2 genes KATEY+non-probe Ql (Stl) Not Detected *NA* (09/11/23 9:10 AM) Invalid Interpretation Code Not Detected [facility] Auto Microbiology GL SS E. histolytica DNA KATEY+non-probe Ql (Stl) Not Detected *NA* (09/11/23 9:10 AM) Invalid Interpretation Code Not Detected [facility] Auto Microbiology GL SS G. lamblia DNA KATEY+non-probe Ql (Stl) Not Detected *NA* (09/11/23 9:10 AM) Invalid Interpretation Code Not Detected [facility] Auto Microbiology GL SS Norovirus genogroup I+II RNA KATEY+non-probe Ql (Stl) Not Detected *NA* (09/11/23 9:10 AM) Invalid Interpretation Code Not Detected [facility] Auto Microbiology GL SS Plesiomonas shigelloides Not Detected *NA* (09/11/23 9:10 AM) Invalid Interpretation Code Not Detected [facility] Auto Microbiology GL SS Rotavirus A RNA KATEY+non-probe Ql (Stl) Not Detected *NA* (09/11/23 9:10 AM) Invalid Interpretation Code Not Detected [facility] Auto Microbiology GL SS S. enterica+bongori DNA KATEY+non-probe Ql (Stl) Not Detected *NA* (09/11/23 9:10 AM) Invalid Interpretation Code Not Detected AH Auto Microbiology GL SS Sapovirus genogroups I+II+IV+V RNA KATEY+non-probe Ql (Stl) Detected *ABN* (09/11/23 9:10 AM) Invalid Interpretation Code Not Detected [facility] Auto Microbiology GL SS Shigella species+EIEC invasion plasmid antigen H ipaH gene KATEY+non-probe Ql (Stl) Not Detected *NA* (09/11/23 9:10 AM) Invalid Interpretation Code Not Detected [facility] Auto Microbiology GL SS Stool GI Comment See Comment 1 (09/11/23 9:10 AM) Invalid Interpretation Code AH Auto Microbiology GL SS Comment on above: Interpretive Data: V irus, bacteria, and parasite nucleic acid may persist in vivo independently of organism viability. Negative Film Array GI panel results in the setting of clinical illness compatible with gastroenteritis may be due to infection by pathogens that are not detected by this test. False negatives may occur due to genetic variability in the region targeted by the primers. V. cholerae DNA KATEY+non-probe Ql (Stl) Not Detected *NA* (09/11/23 9:10 AM) Invalid Interpretation Code Not Detected [facility] Auto Microbiology GL SS V. cholerae+parahaemolyti cus+vulnificus DNA KATEY+non-probe Ql (Stl) Not Detected *NA* (09/11/23 9:10 AM) Invalid Interpretation Code Not Detected [facility] Auto Microbiology GL SS Y. enterocolitica DNA KATEY+non-probe Ql (Stl) Not Detected *NA* (09/11/23 9:10 AM) Invalid Interpretation Code Not Detected [facility] Auto Microbiology GL SS No Panel Informationon 09-11 Shiga Toxins 1 and 2 Absence of Shiga to christina 1 Absence of Shiga toxin 2 [facility] Comment on above: Testing performed by immunochromatography. Culture Stool Normal stool arvin present. Salmonella: Negative Shigella: Negative Campylobacter: Negative [facility] Comment on above: Requests for alterna tive pathogens including Yersinia, E. coli 0157, C. difficile toxin, Rotavirus, Giardia and parasites require specific requests. STGIPCRon 09-11-2023 Adenovirus F 40/41 Not detected Normal Not Detected [facility] ([place]) Comment on above: Performed By: #### S TGIPCR #### [place] [address] Astrovirus Not detected Normal Not Detected [facility] ([place]) Comment on above: Performed By: #### S TGIPCR #### [address] [address] Campy (jejuni/coli/ups) Not detected Normal Not Detected [facility] ([place]) Comment on above: Performed By: #### S TGIPCR #### [address] [address] Cryptosporidium Not detected Normal Not Detected [facility] ([place]) Comment on above: Performed By: #### S TGIPCR #### [address] [address] Cyclospora Not detected Normal Not Detected [facility] ([place]) Comment on above: Performed By: #### S TGIPCR #### [address] [address] E. coli (ETEC) Not detected Normal Not Detected [facility] ([place]) Comment on above: Performed By: #### S TGIPCR #### [place] [address] E. coli O157 Not Applicable Normal Not Detected [facility] ([place]) Comment on above: Performed By: #### S TGIPCR #### [place] [address] Entamoeba histolytica Not detected Normal Not Detected [facility] ([place]) Comment on above: Performed By: #### S TGIPCR #### [place] [address] Enteroaggregative E. coli (EAEC) Not detected Normal Not Detected [facility] ([place] Comment on above: Performed By: #### S TGIPCR #### [place] [address] Enteropathogenic E. coli (EPEC) Detected Abnormal Not Detected [facility] ([place] Comment on above: Performed By: #### S TGIPCR #### [place] [address] Giardia lamblia Not detected Normal Not Detected [facility] ([place]) Comment on above: Performed By: #### S TGIPCR #### [place] [address] Norovirus GI/GII Not detected Normal Not Detected [facility] ([place]) Comment on above: Performed By: #### S TGIPCR #### [place] [address] Plesiomonas shigelloides Not detected Normal Not Detected [facility] ([place]) Comment on above: Performed By: #### S TGIPCR #### [place] [address] Rotavirus A Not detected Normal Not Detected [facility] ([place] Comment on above: Performed By: #### S TGIPCR #### [place] [id number] Salmonella species, stool Not detected Normal Not Detected [facility] ([place] Comment on above: Performed By: #### S TGIPCR #### [place] [address] Sapovirus I,II,IV,V Detected Abnormal Not Detected [facility] ([place]) Comment on above: Performed By: #### S TGIPCR #### [place] [address] Shig Tox E. coli (STEC) Not detected Normal Not Detected [facility] ([place]) Comment on above: Performed By: #### S TGIPCR #### [place] [id number] Shigella/Enteroinvasiv e E. coli (EIEC) Not detected Normal Not Detected [facility] ([place]) Comment on above: Performed By: #### S TGIPCR #### [place] [address] Stool GI Comment See Comment Normal [facility] ([place] Comment on above: Result Comment: Viru s, bacteria, and parasite nucleic acid may persist in vivo independently of organism viability. Negative Film Array GI panel results in the setting of clinical illness compatible with gastroenteritis may be due to infection by pathogens that are not detected by this test. False negatives may occur due to genetic variability in the region targeted by the primers. Performed By: #### S TGIPCR #### [place] [address] Vibrio cholerae Not detected Normal Not Detected [facility] ([place]) Comment on above: Performed By: #### S TGIPCR #### [place] [address] Vibrio par/vul/chol Not detected Normal Not Detected [facility] ([place]) Comment on above: Performed By: #### S TGIPCR #### [place] [address] Yersinia enterocolitica Not detected Normal Not Detected [facility] ([place]) Comment on above: Performed By: #### S TGIPCR #### [place] [address] 36on 08-20-2023 36 Left voice message f or pt to call to new pt appt. [facility] 36 Name of Caller: [facility] Contact Reason for Appointment: Referral for Pt was sent over on 07/18 to establish care. [facility] office can call Pt to schedule at [phone] or Pt's spouse Dagoberto at [phone]. Please advise Office Name: [facility] [place] [facility] Med[place] Refills need, if any: NA Medication Name: NA Normal [facility] .ANATon 07-10-2023 CASSADNRA Pattern 1 Homogeneous Normal [facility] ([place]) Comment on above: Result Comment: At A ultman, an CASSANDRA titer of less than 160 is not considered suggestive of significant rheumatoid disease. If clinical suspicion is high, suggest repeat testing in 1-2 months. Performed By: #### U A #### [address] [address] CASSANDRA Titer 1 80 Normal [facility] ([place]) Comment on above: Performed By: #### U A #### [address] [address] ANAon 07-10-2023 CASSANDRA See Titer Normal Neg 40 [facility] ([place]) Comment on above: Result Comment: CASSANDRA Screen and Titer methodology is an immunofluorescent technique utilizing Hep2 Substrate. Performed By: #### U A #### [address] [address] .GFRon 07-09-2023 GFR 97 ml/min/1.73sqm Normal [facility] ([place]) Comment on above: Result Comment: GFR Population mean for , Non- Americans Ages 20-29 = 116 mL/min/1.73 sq.m. Ages 30-39 = 107 mL/min/1.73 sq.m. Ages 40-49 = 99 mL/min/1.73 sq.m. Ages 50-59 = 93 mL/min/1.73 sq.m. Ages 60-69 = 85 mL/min/1.73 sq.m. Ages 70+ = 75 mL/min/1.73 sq.m. Chronic Kidney Disease: Less than 60 mL/min/1.73 square meters End Stage Renal Disease: Less than 15 mL/min/1.73 square meters Performed By: #### U A #### [address] [address] GFR Non- 80 ml/min/1.73sqm Normal [facility] ([place]) Comment on above: Result Comment: GFR Population mean for , Non- Americans Ages 20-29 = 116 mL/min/1.73 sq.m. Ages 30-39 = 107 mL/min/1.73 sq.m. Ages 40-49 = 99 mL/min/1.73 sq.m. Ages 50-59 = 93 mL/min/1.73 sq.m. Ages 60-69 = 85 mL/min/1.73 sq.m. Ages 70+ = 75 mL/min/1.73 sq.m. Chronic Kidney Disease: Less than 60 mL/min/1.73 square meters End Stage Renal Disease: Less than 15 mL/min/1.73 square meters Performed By: #### U A #### [address] [address] B12on 07-09-2023 Cobalamin (Vitamin B12) [Mass/Vol] 995 pg/mL High 211-911 [facility] ([place]) Comment on above: Performed By: #### U A #### [address] [address] CMPon 07-09-2023 Albumin Level 3.6 G/dL Normal 3.5-5.0 [facility] ([place]) Comment on above: Performed By: #### A NA, ROBINA, FOL, B12, BERT #### [address] [address] #### GFR, MG, VIDH, CMP #### [address] [address] Albumin/Globulin [Mass ratio] 1.0 {ratio} Low 1.1-2.5 [facility] ([place]) Comment on above: Performed By: #### A NA, ROBINA, FOL, B12, BERT #### [address] [address] #### GFR, MG, VIDH, CMP #### [address] [address] ALP [Catalytic activity/Vol] 69 U/L Normal 40-135 [facility] ([place]) Comment on above: Performed By: #### A NA, ROBINA, FOL, B12, BERT #### [place] [address] #### GFR, MG, VIDH, CMP #### [address] [address] ALT [Catalytic activity/Vol] 40 U/L Normal 14-59 [facility] ([place] Comment on above: Performed By: #### A NA, ROBINA, FOL, B12, BERT #### [place] [address] #### GFR, MG, VIDH, CMP #### [address] [address] AST [Catalytic activity/Vol] 19 U/L Normal 10-40 [facility] ([place] Comment on above: Performed By: #### A NA, ROBINA, FOL, B12, BERT #### [place] [address] #### GFR, MG, VIDH, CMP #### [address] [address] Bili Total 0.2 mg/dL Normal 0.2-1.0 [facility] ([place] Comment on above: Result Comment: Use of this assay is not recommended for patients undergoing treatment with eltrombopag due to the potential for falsely elevated results. Performed By: #### A NA, ROBINA, FOL, B12, BERT #### [place] [address] #### GFR, MG, VIDH, CMP #### [address] [address] BUN/Creatinine Ratio 12 ratio Normal 7-27 [facility] ([place]) Comment on above: Performed By: #### A NA, ROBINA, FOL, B12, BERT #### [place] [address] #### GFR, MG, VIDH, CMP #### [address] [address] Calcium [Mass/Vol] 8.8 mg/dL Normal 8.4-10.2 [facility] ([place]) Comment on above: Performed By: #### A NA, ROBINA, FOL, B12, BERT #### [place] [address] #### GFR, MG, VIDH, CMP #### [address] [address] Chloride [Moles/Vol] 105 mmol/L Normal 98-107 [facility] ([place] Comment on above: Performed By: #### A NA, ROBINA, FOL, B12, BERT #### [place] [address] #### GFR, MG, VIDH, CMP #### [place] [address] CO2 [Moles/Vol] 26 mmol/L Normal 22-29 [facility] ([place] Comment on above: Performed By: #### A NA, ROBINA, FOL, B12, BERT #### [place] [address] #### GFR, MG, VIDH, CMP #### [address] [address] Creatinine [Mass/Vol] 0.86 mg/dL Normal 0.55-1.02 [facility] ([place]) Comment on above: Performed By: #### A NA, ROBINA, FOL, B12, BERT #### [place] [address] #### GFR, MG, VIDH, CMP #### [address] [address] Electrolyte Balance 11.0 mEq/L Normal 4.0-15.0 [facility] ([place]) Comment on above: Performed By: #### A NA, ROBINA, FOL, B12, BERT #### [place] [address] #### GFR, MG, VIDH, CMP #### [address] [address] Globulin 3.5 G/dL Normal [facility] ([place] Comment on above: Performed By: #### A NA, ROBINA, FOL, B12, BERT #### [place] [address] #### GFR, MG, VIDH, CMP #### [address] [address] Glucose [Mass/Vol] 84 mg/dL Normal 70-105 [facility] ([place]) Comment on above: Performed By: #### A NA, ROBINA, FOL, B12, BERT #### [place] [address] #### GFR, MG, VIDH, CMP #### [address] [address] Potassium [Moles/Vol] 4.4 mmol/L Normal 3.5-5.1 [facility] ([place]) Comment on above: Performed By: #### A NA, ROBINA, FOL, B12, BERT #### [place] [address] #### GFR, MG, VIDH, CMP #### [address] [address] Sodium [Moles/Vol] 142 mmol/L Normal 136-145 [facility] ([place]) Comment on above: Performed By: #### A NA, ROBINA, FOL, B12, BERT #### [place] [address] #### GFR, MG, VIDH, CMP #### [address] [address] Total Protein 7.1 G/dL Normal 6.4-8.2 [facility] ([place] Comment on above: Performed By: #### A NA, ROBINA, FOL, B12, BERT #### [place] [address] #### GFR, MG, VIDH, CMP #### [address] [address] Urea nitrogen [Mass/Vol] 10 mg/dL Normal 7-18 [facility] ([place] Comment on above: Performed By: #### A NA, ROBINA, FOL, B12, BERT #### [place] [address] #### GFR, MG, VIDH, CMP #### [address] [address] CORTon 07-09-2023 Cortisol Level 11.6 mcg/dL Normal [facility] ([place]) Comment on above: Result Comment: Bert isol AM Reference Range 6.5-26.0 mcg/dL Cortisol PM Reference Range 3.5-15.0 mcg/dL Performed By: #### U A #### [address] [address] FOLon 07-09-2023 Folate 18.74 ng/mL Normal 5.38-24.00 [facility] ([place]) Comment on above: Performed By: #### U A #### [address] [address] LABORATORYOrdered By: SYSTEM SYSTEM on 07-09-2023 25-hydroxyvitamin D3 [Mass/Vol] 15.0 ng/mL Invalid Interpretation Code AO ADM SS Comment on above: Interpretive Data: I nterpretive Values Based on Total 25(OH) Vitamin D: Deficient <20 ng/mL Insufficient 20 - <30 ng/mL Sufficient 30-100 ng/mL Albumin BCP dye [Mass/Vol] 3.6 G/dL Invalid Interpretation Code 3.5 - 5.0 G/dL AO ADM SS Albumin/Globulin [Mass ratio] 1.0 {ratio} Invalid Interpretation Code 1.1 - 2.5 ratio AO ADM SS ALP [Catalytic activity/Vol] 69 U/L Invalid Interpretation Code 40 - 135 U/L AO ADM SS ALT With P-5'-P [Catalytic activity/Vol] 40 U/L Invalid Interpretation Code 14 - 59 U/L AO ADM SS AST With P-5'-P [Catalytic activity/Vol] 19 U/L Invalid Interpretation Code 10 - 40 U/L AO ADM SS Bilirubin [Mass/Vol] 0.2 mg/dL Invalid Interpretation Code 0.2 - 1.0 mg/dL AO ADM SS Comment on above: Interpretive Data: U se of this assay is not recommended for patients undergoing treatment with eltrombopag due to the potential for falsely elevated results. Calcium [Mass/Vol] 8.8 mg/dL Invalid Interpretation Code 8.4 - 10.2 mg/dL AO ADM SS Chloride [Moles/Vol] 105 mmol/L Invalid Interpretation Code 98 - 107 mmol/L AO ADM SS CO2 [Moles/Vol] 26 mmol/L Invalid Interpretation Code 22 - 29 mmol/L AO ADM SS Cobalamin (Vitamin B12) [Mass/Vol] 995 pg/mL Invalid Interpretation Code 211 - 911 pg/mL AH ADM SS Cortisol [Mass/Vol] 11.6 ug/dL Invalid Interpretation Code AH ADM SS Comment on above: Interpretive Data: C ortisol AM Reference Range 6.5-26.0 mcg/dL Cortisol PM Reference Range 3.5-15.0 mcg/dL Creatinine [Mass/Vol] 0.86 mg/dL Invalid Interpretation Code 0.55 - 1.02 mg/dL AO ADM SS Electrolyte Balance 11.0 mEq/L Invalid Interpretation Code 4.0 - 15.0 mEq/L AO ADM SS Folate [Mass/Vol] 18.74 ng/mL Invalid Interpretation Code 5.38 - 24.00 ng/mL AH ADM SS GFR/1.73 sq M.predicted among blacks MDRD (S/P/Bld) [Vol rate/Area] 97 ml/min/1.73sqm Invalid Interpretation Code AO Chemistry S Comment on above: Interpretive Data: GFR Population mean for , Non- Americans Ages 20-29 = 116 mL/min/1.73 sq.m. Ages 30-39 = 107 mL/min/1.73 sq.m. Ages 40-49 = 99 mL/min/1.73 sq.m. Ages 50-59 = 93 mL/min/1.73 sq.m. Ages 60-69 = 85 mL/min/1.73 sq.m. Ages 70+ = 75 mL/min/1.73 sq.m. Chronic Kidney Disease: Less than 60 mL/min/1.73 square meters End Stage Renal Disease: Less than 15 mL/min/1.73 square meters GFR/1.73 sq M.predicted among non-blacks MDRD (S/P/Bld) [Vol rate/Area] 80 ml/min/1.73sqm Invalid Interpretation Code AO Chemistry S Comment on above: Interpretive Data: GFR Population mean for , Non- Americans Ages 20-29 = 116 mL/min/1.73 sq.m. Ages 30-39 = 107 mL/min/1.73 sq.m. Ages 40-49 = 99 mL/min/1.73 sq.m. Ages 50-59 = 93 mL/min/1.73 sq.m. Ages 60-69 = 85 mL/min/1.73 sq.m. Ages 70+ = 75 mL/min/1.73 sq.m. Chronic Kidney Disease: Less than 60 mL/min/1.73 square meters End Stage Renal Disease: Less than 15 mL/min/1.73 square meters Globulin 3.5 G/dL Invalid Interpretation Code AO ADM SS Glucose [Mass/Vol] 84 mg/dL Invalid Interpretation Code 70 - 105 mg/dL AO ADM SS Magnesium [Mass/Vol] 2.0 mg/dL Invalid Interpretation Code 1.8 - 2.4 mg/dL AO ADM SS Potassium [Moles/Vol] 4.4 mmol/L Invalid Interpretation Code 3.5 - 5.1 mmol/L AO ADM SS Protein [Mass/Vol] 7.1 G/dL Invalid Interpretation Code 6.4 - 8.2 G/dL AO ADM SS Sodium [Moles/Vol] 142 mmol/L Invalid Interpretation Code 136 - 145 mmol/L AO ADM SS Urea nitrogen [Mass/Vol] 10 mg/dL Invalid Interpretation Code 7 - 18 mg/dL AO ADM SS Urea nitrogen/Creatinine [Mass ratio] 12 ratio Invalid Interpretation Code 7 - 27 ratio AO ADM SS MGon 07-09-2023 Magnesium [Mass/Vol] 2.0 mg/dL Normal 1.8-2.4 [facility] ([place]) Comment on above: Performed By: #### A NA, ROBINA, FOL, B12, BERT #### [address] [address] #### GFR, MG, VIDH, CMP #### [address] [address] VIDHon 07-09-2023 Vit. D 25-Hydroxy 15.0 ng/mL Normal [facility] ([place]) Comment on above: Result Comment: Inte rpretive Values Based on Total 25(OH) Vitamin D: Deficient <20 ng/mL Insufficient 20 - <30 ng/mL Sufficient 30-100 ng/mL Performed By: #### A NA, ROBINA, FOL, B12, BERT #### [place] [address] #### GFR, MG, VIDH, CMP #### [address] [address] LABORATORYOrdered By: SYSTEM SYSTEM on 04-23-2023 Albumin BCP dye [Mass/Vol] 4.1 G/dL Invalid Interpretation Code 3.5 - 5.0 G/dL AO ADM SS Albumin/Globulin [Mass ratio] 1.2 {ratio} Invalid Interpretation Code 1.1 - 2.5 ratio AO ADM SS ALP [Catalytic activity/Vol] 70 U/L Invalid Interpretation Code 40 - 135 U/L AO ADM SS ALT With P-5'-P [Catalytic activity/Vol] 61 U/L Invalid Interpretation Code 14 - 59 U/L AO ADM SS AST With P-5'-P [Catalytic activity/Vol] 25 U/L Invalid Interpretation Code 10 - 40 U/L AO ADM SS Bilirubin [Mass/Vol] 0.4 mg/dL Invalid Interpretation Code 0.2 - 1.0 mg/dL AO ADM SS Calcium [Mass/Vol] 9.1 mg/dL Invalid Interpretation Code 8.4 - 10.2 mg/dL AO ADM SS Chloride [Moles/Vol] 103 mmol/L Invalid Interpretation Code 98 - 107 mmol/L AO ADM SS CO2 [Moles/Vol] 28 mmol/L Invalid Interpretation Code 22 - 29 mmol/L AO ADM SS Creatinine [Mass/Vol] 0.90 mg/dL Invalid Interpretation Code 0.55 - 1.02 mg/dL AO ADM SS Electrolyte Balance 9.0 mEq/L Invalid Interpretation Code 4.0 - 15.0 mEq/L AO ADM SS Free T3 [Mass/Vol] 2.80 pg/mL Invalid Interpretation Code 2.30 - 4.00 pg/mL AO ADM SS Free T4 [Mass/Vol] 1.03 ng/dL Invalid Interpretation Code 0.76 - 1.46 ng/dL AO ADM SS GFR/1.73 sq M.predicted among blacks MDRD (S/P/Bld) [Vol rate/Area] 93 ml/min/1.73sqm Invalid Interpretation Code AO Chemistry S GFR/1.73 sq M.predicted among non-blacks MDRD (S/P/Bld) [Vol rate/Area] 77 ml/min/1.73sqm Invalid Interpretation Code AO Chemistry S Globulin 3.5 G/dL Invalid Interpretation Code AO ADM SS Glucose [Mass/Vol] 81 mg/dL Invalid Interpretation Code 70 - 105 mg/dL AO ADM SS Iron [Mass/Vol] 68 ug/dL Invalid Interpretation Code 50 - 170 mcg/dL AO ADM SS Iron binding capacity [Mass/Vol] 339 mcg/dL Invalid Interpretation Code 250 - 450 mcg/dL AO ADM SS Iron Sat 20 1 Invalid Interpretation Code AO ADM SS Potassium [Moles/Vol] 4.6 mmol/L Invalid Interpretation Code 3.5 - 5.1 mmol/L AO ADM SS Protein [Mass/Vol] 7.6 G/dL Invalid Interpretation Code 6.4 - 8.2 G/dL AO ADM SS Sodium [Moles/Vol] 140 mmol/L Invalid Interpretation Code 136 - 145 mmol/L AO ADM SS TPO Ab IA Qn unit/mL Invalid Interpretation Code 0 - 60 unit/mL AH ADM SS TSH Qn 0.63 m[IU]/L Invalid Interpretation Code 0.36 - 3.74 mcIU/mL AO ADM SS Urea nitrogen [Mass/Vol] 11 mg/dL Invalid Interpretation Code 7 - 18 mg/dL AO ADM SS Urea nitrogen/Creatinine [Mass ratio] 12 ratio Invalid Interpretation Code 7 - 27 ratio AO ADM SS LABORATORYOrdered By: Anni Franks on 04-23-2023 Basophil, Absolute 0.1 103/mcL Invalid Interpretation Code 0.0 - 0.2 10^3/mcL AO Workflow SS Basophils/100 WBC (Bld) 0.8 % Invalid Interpretation Code 0.0 - 2.5 % AO Workflow SS Eosinophil, Absolute 0.5 103/mcL Invalid Interpretation Code 0.0 - 0.4 10^3/mcL AO Workflow SS Eosinophils/100 WBC (Bld) 6.0 % Invalid Interpretation Code 0.0 - 7.0 % AO Workflow SS Erythrocyte distribution width (RBC) [Ratio] 13.4 % Invalid Interpretation Code 11.5 - 14.5 % AO Workflow SS Hematocrit (Bld) [Volume fraction] 41.2 % Invalid Interpretation Code 37.0 - 47.0 % AO Workflow SS Hemoglobin (Bld) [Mass/Vol] 14.3 G/dL Invalid Interpretation Code 12.0 - 16.0 G/dL AO Workflow SS Lymphocyte, Absolute 3.5 103/mcL Invalid Interpretation Code 0.8 - 3.9 10^3/mcL AO Workflow SS Lymphocytes/100 WBC (Bld) 40.2 % Invalid Interpretation Code 10.0 - 50.0 % AO Workflow SS MCH (RBC) [Entitic mass] 29.7 pg Invalid Interpretation Code 27.0 - 31.2 pg AO Workflow SS MCHC 34.7 G/dL Invalid Interpretation Code 33.0 - 37.0 G/dL AO Workflow SS MCV (RBC) [Entitic vol] 85.5 fL Invalid Interpretation Code 80.0 - 94.0 fL AO Workflow SS Monocyte, Absolute 0.5 103/mcL Invalid Interpretation Code 0.2 - 1.0 10^3/mcL AO Workflow SS Monocytes/100 WBC (Bld) 6.0 % Invalid Interpretation Code 1.7 - 13.0 % AO Workflow SS Neutrophil, Absolute 4.1 103/mcL Invalid Interpretation Code 2.9 - 6.2 10^3/mcL AO Workflow SS Neutrophils/100 WBC (Bld) 47.0 % Invalid Interpretation Code 37.0 - 80.0 % AO Workflow SS Platelet mean volume (Bld) [Entitic vol] 7.3 fL Invalid Interpretation Code 7.4 - 10.4 fL AO Workflow SS Platelets (Bld) [#/Vol] 406 103/mcL Invalid Interpretation Code 130 - 400 10^3/mcL AO Workflow SS RBC (Bld) [#/Vol] 4.82 106/mcL Invalid Interpretation Code 4.20 - 5.40 10^6/mcL AO Workflow SS WBC (Bld) [#/Vol] 8.6 103/mcL Invalid Interpretation Code 4.6 - 10.8 10^3/mcL AO Workflow SS LABORATORYOrdered By: Pamela Ravi on 04-23-2023 Cholesterol [Mass/Vol] 235 mg/dL Invalid Interpretation Code 0 - 200 mg/dL AO ADM SS Cholesterol in HDL [Mass/Vol] 67 mg/dL Invalid Interpretation Code 40 - 60 mg/dL AO ADM SS Cholesterol in LDL [Mass/Vol] 152 mg/dL Invalid Interpretation Code 0 - 130 mg/dL AO ADM SS Triglyceride [Mass/Vol] 81 mg/dL Invalid Interpretation Code 0 - 150 mg/dL AO ADM SS Absolute lymphocyte countOrd ered By: Dr. Edwards on 12-19-2022 Lymphocytes Auto (Unsp spec) [#/Vol] 2.43 10*3/uL 0.83-4.51 [facility] Basophil percentageOrdered B y: Dr. Edwards on 12-19-2022 Basophils/100 WBC (Bld) 0.3 % 0-1 [facility] Eosinophils/100 WBC (Bld) 0.9 % 0-5 [facility] Neutrophils (Bld) [#/Vol] 8.3 10*3/uL 2.0-7.7 [facility] Neutrophils/100 WBC (Bld) 71.2 % 47-70 [facility] WBC (Bld) [#/Vol] 11.6 10*3/uL 4.4-11.0 [facility] Blood erythrocytes count (nu mber/volume)Ordered By: Dr. Edwards on 12-19-2022 RBC (Bld) [#/Vol] 3.98 10*6/uL 4.2-5.4 [facility] Blood hemoglobin measurement (mass/volume)Ordered By: Dr. Edwards on 12-19-2022 Hemoglobin (Bld) [Mass/Vol] 12.7 g/dL 12.0-15.0 [facility] Blood lymphocytes/100 leukoc ytesOrdered By: Dr. Edwards on 12-19-2022 Lymphocytes/100 WBC (Bld) 20.9 % 19-41 [facility] Blood monocytes/100 leukocyt esOrdered By: Dr. Edwards on 12-19-2022 Monocytes/100 WBC (Bld) 6.2 % 0-10 [facility] Blood platelet mean volumeOr dered By: Dr. Edwards on 12-19-2022 Platelet mean volume (Bld) [Entitic vol] 9.7 fL 6.2-12.0 [facility] Determination of erythrocyte mean corpuscular volume (MCV)Ordered By: Dr. Edwards on 12-19-2022 MCV (RBC) [Entitic vol] 91.2 fL 81-99 [facility] Hematocrit Auto (Bld) [Volum e fraction]Ordered By: Dr. Edwards on 12-19-2022 Hematocrit (Bld) [Volume fraction] 36.3 % 37-47 [facility] Laboratory - Hematology and Cell countsOrdered By: Dr. Edwards on 12-19-2022 Erythrocyte distribution width (RBC) [Entitic vol] 40.0 fL 35.1-43.9 [facility] Erythrocyte distribution width (RBC) [Ratio] 12.1 % 11.6-14.6 [facility] Immature granulocytes/100 WBC (Bld) 0.500 % 0.0-0.9 [facility] Comment on above: IG% - Immature Granu locytes (promyelocytes, myelocytes and metamyelocytes) > 1% indicates that a LEFT SHIFT is Present. MCH (RBC) [Entitic mass] 31.9 pg 27.0-32.0 [facility] Nucleated RBC/100 WBC (Bld) [Ratio] 0 % 0-5 [facility] MCHC Auto (RBC) [Mass/Vol]Or dered By: Dr. Edwards on 12-19-2022 MCHC (RBC) [Mass/Vol] 35.0 g/dL 32-36 [facility] Platelets bldOrdered By: Dr. Edwards on 12-19-2022 Platelets (Bld) [#/Vol] 315 10*3/uL 150-450 [facility] Laboratory - Chemistry and C hemistry - challengeon 12-18-2022 Glucose Ql (U) Negative [facility] Laboratory - Urinalysison Protein Ql (U) Negative [facility] Culture, urineOrdered By: Dr Cherelle Robertson on 12-09-2022 Bacteria identified Cx Nom (U) Positive [facility] No Panel InformationOrdered By: Dr. Robertson on 12-09-2022 Group B Streptococcus Culture Group B Beta Streptococcus is not isolated. [facility] Absolute lymphocyte countOrd ered By: Dr. Robertson on 12-06-2022 Lymphocytes Auto (Unsp spec) [#/Vol] 2.34 10*3/uL 0.83-4.51 [facility] Basophil percentageOrdered B y: Dr. Robertson on 12-06-2022 Basophil percentage 0 SEEN /hpf 0-5 [facility] Basophils/100 WBC (Bld) 0.3 % 0-1 [facility] Bilirubin [Mass/Vol] 0.30 mg/dL 0.20-1.00 [facility] Comment on above: For patients on eltr ombopag therapy, use of Dimension Gorin TBIL is not recommended. Chloride [Moles/Vol] 107 mmol/L 98-107 [facility] Eosinophils/100 WBC (Bld) 1.3 % 0-5 [facility] Glucose [Mass/Vol] 103 mg/dL 74-106 [facility] Comment on above: Fasting Glucose resu lt from 100 to 125 mg/dL suggests IMPAIRED HOMEOSTASIS per A.D.A. criteria. Neutrophils (Bld) [#/Vol] 10.7 10*3/uL 2.0-7.7 [facility] Neutrophils/100 WBC (Bld) 75.3 % 47-70 [facility] Potassium [Moles/Vol] 3.5 mmol/L 3.5-5.1 [facility] Protein [Mass/Vol] 6.7 g/dL 6.4-8.2 [facility] Sodium [Moles/Vol] 139 mmol/L 136-145 [facility] WBC (Bld) [#/Vol] 14.2 10*3/uL 4.4-11.0 [facility] Bilirubin Test strip Ql (U)O rdered By: Dr. Robertson on 12-06-2022 Bilirubin Ql (U) Negative Negative [facility] Blood erythrocytes count (nu mber/volume)Ordered By: Dr. Robertson on 12-06-2022 RBC (Bld) [#/Vol] 4.07 10*6/uL 4.2-5.4 [facility] Blood hemoglobin measurement (mass/volume)Ordered By: Dr. Robertson on 12-06-2022 Hemoglobin (Bld) [Mass/Vol] 13.1 g/dL 12.0-15.0 [facility] Blood lymphocytes/100 leukoc ytesOrdered By: Dr. Robertson on 12-06-2022 Lymphocytes/100 WBC (Bld) 16.5 % 19-41 [facility] Blood monocytes/100 leukocyt esOrdered By: Dr. Robertson on 12-06-2022 Monocytes/100 WBC (Bld) 6.1 % 0-10 [facility] Blood platelet mean volumeOr dered By: Dr. Robertson on 12-06-2022 Platelet mean volume (Bld) [Entitic vol] 9.7 fL 6.2-12.0 [facility] Determination of erythrocyte mean corpuscular volume (MCV)Ordered By: Dr. Robertson on 12-06-2022 MCV (RBC) [Entitic vol] 89.7 fL 81-99 [facility] Hematocrit Auto (Bld) [Volum e fraction]Ordered By: Dr. Robertson on 12-06-2022 Hematocrit (Bld) [Volume fraction] 36.5 % 37-47 [facility] Ketones Test strip Ql (U)Ord ered By: Dr. Robertson on 12-06-2022 Ketones Ql (U) Negative Negative [facility] Laboratory - Chemistry and C hemistry - challengeOrdered By: Dr. Robertson on 12-06-2022 ALP [Catalytic activity/Vol] 62 U/L 45-117 [facility] ALT [Catalytic activity/Vol] 14 U/L 13-56 [facility] CO2 [Moles/Vol] 24.0 mmol/L 21.0-32.0 [facility] Globulin (S) [Mass/Vol] 3.9 g/dL 2.2-4.2 [facility] Urea nitrogen/Creatinine [Mass ratio] 7.7 mg/mg 10-20 [facility] Laboratory - Hematology and Cell countsOrdered By: Dr. Robertson on 12-06-2022 Erythrocyte distribution width (RBC) [Entitic vol] 40.8 fL 35.1-43.9 [facility] Erythrocyte distribution width (RBC) [Ratio] 12.4 % 11.6-14.6 [facility] Immature granulocytes/100 WBC (Bld) 0.500 % 0.0-0.9 [facility] Comment on above: IG% - Immature Granu locytes (promyelocytes, myelocytes and metamyelocytes) > 1% indicates that a LEFT SHIFT is Present. MCH (RBC) [Entitic mass] 32.2 pg 27.0-32.0 [facility] Nucleated RBC/100 WBC (Bld) [Ratio] 0 % 0-5 [facility] MCHC Auto (RBC) [Mass/Vol]Or dered By: Dr. Robertson on 12-06-2022 MCHC (RBC) [Mass/Vol] 35.9 g/dL 32-36 [facility] Mucus LM Ql (Urine sed)Order ed By: Dr. Robertson on 12-06-2022 Mucus Ql (Urine sed) 0 SEEN /hpf [facility] Nitrite Test strip Ql (U)Ord ered By: Dr. Robertson on 12-06-2022 Nitrite Ql (U) Negative Negative [facility] No Panel InformationOrdered By: Dr. Robertson on 12-06-2022 Specimen Comment (Misc) Not Reportable [facility] Estimated Creatinine Clearance Calc 129.78 ml/min [facility] Estimated GFR (MDRD) Amer 143 mL/min >60 [facility] Comment on above: GFR Calc Estimated GFR (MDRD) Non-Af Amer 118 mL/min >60 [facility] Comment on above: Non- GFR Calc Platelets bldOrdered By: Dr. Robertson on 12-06-2022 Platelets (Bld) [#/Vol] 325 10*3/uL 150-450 [facility] Protein Test strip Ql (U)Ord ered By: Dr. Robertson on 12-06-2022 Protein Ql (U) 15 mg/dl Negative [facility] Serum or plasma albumin neel urement (mass/volume)Ordered By: Dr. Robertson on 12-06-2022 Albumin [Mass/Vol] 2.8 g/dL 3.2-5.0 [facility] Serum or plasma albumin/glob ulin mass ratioOrdered By: Dr. Robertson on 12-06-2022 Albumin/Globulin [Mass ratio] 0.7 {ratio} 0.9-2.4 [facility] Serum or plasma calcium neel urement (mass/volume)Ordered By: Dr. Robertson on 12-06-2022 Calcium [Mass/Vol] 8.6 mg/dL 8.5-10.1 [facility] Serum or plasma creatinine m easurement (mass/volume)Ordered By: Dr. Robertson on 12-06-2022 Creatinine [Mass/Vol] 0.65 mg/dL 0.55-1.02 [facility] Comment on above: The validity of the calculated GFR & GFRAA in patients over 70 years has not been determined. Clinical correlation is essential. Serum or plasma urea nitroge n measurement (mass/volume)Ordered By: Dr. Robertson on 12-06-2022 Urea nitrogen [Mass/Vol] 5 mg/dL 7-18 [facility] Squamous epithelial cells de tection in urine sediment by light microscopyOrdered By: Dr. Robertson on 12-06-2022 Epithelial cells.squamous LM Ql (Urine sed) 0 SEEN /hpf 5-10 [facility] Thin prep Papanicolaou smear with manual screeningOrdered By: Dr. Robertson on 12-06-2022 Thin prep Papanicolaou smear with manual screening Negative Negative [facility] Thin prep Papanicolaou smear with manual screening 13 U/L 15-37 [facility] Thin prep Papanicolaou smear with manual screening 8 5-15 [facility] Urine blood detectionOrdered By: Dr. Robertson on 12-06-2022 RBC Ql (U) Negative Negative [facility] RBC Ql (U) 0 SEEN /hpf 0-5 [facility] Urine clarityOrdered By: Dr. Robertson on 12-06-2022 Clarity (U) Clear Clear [facility] Urine color determinationOrd ered By: Dr. Robertson on 12-06-2022 Color (U) Yellow Yellow [facility] Urine glucose detectionOrder ed By: Dr. Robertson on 12-06-2022 Glucose Ql (U) 100 mg/dl Normal [facility] Urine leukocyte esterase det ection by dipstickOrdered By: Dr. Robertson on 12-06-2022 Leukocyte esterase Test strip Ql (U) 25 /ul Negative [facility] Urine pHOrdered By: Dr. Hay mandel on 12-06-2022 pH (U) 6.5 [pH] 5.0 - 8.0 [facility] Urine sediment bacteria coun t by microscopy (number/high power field)Ordered By: Dr. Robertson on 12-06-2022 Bacteria LM.HPF (Urine sed) [#/Area] 0 /[HPF] None Seen [facility] Urine specific gravity measu rementOrdered By: Dr. Robertson on 12-06-2022 Specific gravity (U) [Rel density] 1.010 1.002-1.030 [facility] Urobilinogen Auto test strip Ql (U)Ordered By: Dr. Robertson on 12-06-2022 Urobilinogen Ql (U) 4 mg/dl Normal [facility] Laboratory - Chemistry and C hemistry - challengeon 11-29-2022 Glucose Ql (U) Negative [facility] Laboratory - Urinalysison Protein Ql (U) Negative [facility] Quantitative serum or plasma 3 hour gestational glucose tolerance panelOrdered By: Dr. Edwards on 11-05-2022 Glucose tolerance 3 hours gestational panel See comment [facility] Comment on above: FASTING 88 Col: 10/24 02/12 0703GLUCOSE TOLERANCE TEST FOR Reference Interval GESTATIONAL DIABETES Fasting <105 mg/dL 1 hour <190 mg/dl 2 hour <165 mg/dl 3 hour <145 mg/dl 1 HR GLU 128 Col: 11/05/22 0807 2 HR GLU 139 Col: 11/05/22 0912 3 HR GLU 132 Col: 11/05/22 1008 Gestational diabetes screen 1-hour screen with 50g oral glucose loadOrdered By: Dr. Edwards on 10-31-2022 Glucose 1 Hr post 50 g glucose PO [Mass/Vol] 154 mg/dL 70-140 [facility] HIV 1 and HIV-2 antibody ass ay with HIV-1 p24 antigen detectionOrdered By: Rita Chavarria on 10-31-2022 HIV 1+2 Ab+HIV1 p24 Ag IA Ql Non-Reactive Nonreactive [facility] Laboratory - Chemistry and C hemistry - challengeon 10-31-2022 Glucose Ql (U) Negative [facility] Laboratory - Urinalysison Protein Ql (U) Negative [facility] Serum Treponema species anti body detectionOrdered By: Rita Chavarria on 10-31-2022 Treponema sp Ab Ql (S) Non-Reactive [facility] Laboratory - Chemistry and C hemistry - challengeon 10-11-2022 Glucose Ql (U) Negative [facility] Laboratory - Urinalysison Protein Ql (U) Negative [facility] Laboratory - Chemistry and C hemistry - challengeon 09-13-2022 Glucose Ql (U) 1000 g/dL [facility] Laboratory - Urinalysison Protein Ql (U) Negative [facility] Absolute lymphocyte countOrd ered By: Dr. Baez on 08-30-2022 Lymphocytes Auto (Unsp spec) [#/Vol] 3.55 10*3/uL 0.83-4.51 [facility] Basophil percentageOrdered B y: Dr. Baez on 08-30-2022 Basophils/100 WBC (Bld) 0.3 % 0-1 [facility] Chloride [Moles/Vol] 110 mmol/L 98-107 [facility] Eosinophils/100 WBC (Bld) 3.1 % 0-5 [facility] Glucose [Mass/Vol] 80 mg/dL 74-106 [facility] Neutrophils (Bld) [#/Vol] 9.0 10*3/uL 2.0-7.7 [facility] Neutrophils/100 WBC (Bld) 64.3 % 47-70 [facility] Potassium [Moles/Vol] 3.9 mmol/L 3.5-5.1 [facility] Sodium [Moles/Vol] 142 mmol/L 136-145 [facility] WBC (Bld) [#/Vol] 14.0 10*3/uL 4.4-11.0 [facility] Blood erythrocytes count (nu mber/volume)Ordered By: Dr. Baez on 08-30-2022 RBC (Bld) [#/Vol] 3.98 10*6/uL 4.2-5.4 [facility] Blood hemoglobin measurement (mass/volume)Ordered By: Dr. Baez on 08-30-2022 Hemoglobin (Bld) [Mass/Vol] 13.0 g/dL 12.0-15.0 [facility] Blood lymphocytes/100 leukoc ytesOrdered By: Dr. Baez on 08-30-2022 Lymphocytes/100 WBC (Bld) 25.4 % 19-41 [facility] Blood monocytes/100 leukocyt esOrdered By: Dr. Baez on 08-30-2022 Monocytes/100 WBC (Bld) 6.6 % 0-10 [facility] Blood platelet mean volumeOr dered By: Dr. Baez on 08-30-2022 Platelet mean volume (Bld) [Entitic vol] 9.7 fL 6.2-12.0 [facility] Determination of erythrocyte mean corpuscular volume (MCV)Ordered By: Dr. Baez on 08-30-2022 MCV (RBC) [Entitic vol] 91.5 fL 81-99 [facility] Hematocrit Auto (Bld) [Volum e fraction]Ordered By: Dr. Baez on 08-30-2022 Hematocrit (Bld) [Volume fraction] 36.4 % 37-47 [facility] Laboratory - Chemistry and C hemistry - challengeOrdered By: Dr. Baez on 08-30-2022 CO2 [Moles/Vol] 25.0 mmol/L 21.0-32.0 [facility] Urea nitrogen/Creatinine [Mass ratio] 9.2 mg/mg 10-20 [facility] Laboratory - Hematology and Cell countsOrdered By: Dr. Baez on 08-30-2022 Erythrocyte distribution width (RBC) [Entitic vol] 40.8 fL 35.1-43.9 [facility] Erythrocyte distribution width (RBC) [Ratio] 12.3 % 11.6-14.6 [facility] Immature granulocytes/100 WBC (Bld) 0.300 % 0.0-0.9 [facility] Comment on above: IG% - Immature Granu locytes (promyelocytes, myelocytes and metamyelocytes) > 1% indicates that a LEFT SHIFT is Present. MCH (RBC) [Entitic mass] 32.7 pg 27.0-32.0 [facility] Nucleated RBC/100 WBC (Bld) [Ratio] 0 % 0-5 [facility] MCHC Auto (RBC) [Mass/Vol]Or dered By: Dr. Baez on 08-30-2022 MCHC (RBC) [Mass/Vol] 35.7 g/dL 32-36 [facility] No Panel InformationOrdered By: Dr. Baez on 08-30-2022 Estimated Creatinine Clearance Calc 153.38 ml/min [facility] Estimated GFR (MDRD) Amer 176 mL/min >60 [facility] Comment on above: GFR Calc Estimated GFR (MDRD) Non-Af Amer 145 mL/min >60 [facility] Comment on above: Non- GFR Calc Platelets bldOrdered By: Dr. Baez on 08-30-2022 Platelets (Bld) [#/Vol] 267 10*3/uL 150-450 [facility] Serum or plasma calcium neel urement (mass/volume)Ordered By: Dr. Baez on 08-30-2022 Calcium [Mass/Vol] 8.7 mg/dL 8.5-10.1 [facility] Serum or plasma creatinine m easurement (mass/volume)Ordered By: Dr. Baez on 08-30-2022 Creatinine [Mass/Vol] 0.55 mg/dL 0.55-1.02 [facility] Comment on above: The validity of the calculated GFR & GFRAA in patients over 70 years has not been determined. Clinical correlation is essential. Serum or plasma urea nitroge n measurement (mass/volume)Ordered By: Dr. Baez on 08-30-2022 Urea nitrogen [Mass/Vol] 5 mg/dL 7-18 [facility] Thin prep Papanicolaou smear with manual screeningOrdered By: Dr. Baez on 08-30-2022 Thin prep Papanicolaou smear with manual screening 7 5-15 [facility] Culture, urineOrdered By: Zbigniew Chavarria on 08-24-2022 Bacteria identified Cx Nom (U) Positive [facility] Laboratory - Chemistry and C hemistry - challengeon 08-22-2022 Bilirubin Ql (U) Negative [facility] Glucose Ql (U) Negative [facility] Ketones Ql (U) Negative [facility] pH (U) 6.5 [pH] [facility] Specific gravity (U) [Rel density] 1.005 [facility] Urobilinogen (U) [Mass/Vol] Negative [facility] Laboratory - Hematology and Cell countson 08-22-2022 Hemoglobin Ql (U) Negative [facility] Laboratory - Specimen inform ationon 08-22-2022 Clarity (U) Clear [facility] Color (U) Colorless [facility] Laboratory - Urinalysison Nitrite Ql (U) Negative [facility] Protein Ql (U) Negative [facility] No Panel Informationon 08-22 Urine Leukocytes Positive [facility] Urine Non-Hemolyzed Blood [facility] Laboratory - Chemistry and C hemistry - challengeon 08-13-2022 Glucose Ql (U) Negative [facility] Work Phone: Laboratory - Urinalysison Protein Ql (U) Negative [facility] Work Phone: Laboratory - Chemistry and C hemistry - challengeon 07-17-2022 Glucose Ql (U) Negative [facility] Work Phone: Laboratory - Urinalysison Protein Ql (U) Negative [facility] Work Phone: Absolute lymphocyte counton 06-24-2022 Lymphocytes Auto (Unsp spec) [#/Vol] 2.67 10*3/uL 0.83-4.51 [facility] Work Phone: Basophil percentageon 2021 Basophils/100 WBC (Bld) 0.5 % 0-1 [facility] Work Phone: Eosinophils/100 WBC (Bld) 2.8 % 0-5 [facility] Work Phone: Neutrophils (Bld) [#/Vol] 6.1 10*3/uL 2.0-7.7 [facility] Work Phone: Neutrophils/100 WBC (Bld) 63.0 % 47-70 [facility] Work Phone: WBC (Bld) [#/Vol] 9.8 10*3/uL 4.4-11.0 [facility] Work Phone: Blood erythrocytes count (nu mber/volume)on 06-24-2022 RBC (Bld) [#/Vol] 4.60 10*6/uL 4.2-5.4 [facility] Work Phone: Blood hemoglobin measurement (mass/volume)on 06-24-2022 Hemoglobin (Bld) [Mass/Vol] 14.5 g/dL 12.0-15.0 [facility] Work Phone: Blood lymphocytes/100 leukoc yteson 06-24-2022 Lymphocytes/100 WBC (Bld) 27.4 % 19-41 [facility] Work Phone: Blood monocytes/100 leukocyt eson 06-24-2022 Monocytes/100 WBC (Bld) 5.8 % 0-10 [facility] Work Phone: Blood platelet mean volumeon 06-24-2022 Platelet mean volume (Bld) [Entitic vol] 9.9 fL 6.2-12.0 [facility] Work Phone: Determination of erythrocyte mean corpuscular volume (MCV)on 06-24-2022 MCV (RBC) [Entitic vol] 88.7 fL 81-99 [facility] Work Phone: HIV 1 and HIV-2 antibody ass ay with HIV-1 p24 antigen detectionon 06-24-2022 HIV 1+2 Ab+HIV1 p24 Ag IA Ql Non-Reactive Nonreactive [facility] Work Phone: Hematocrit Auto (Bld) [Volum e fraction]on 06-24-2022 Hematocrit (Bld) [Volume fraction] 40.8 % 37-47 [facility] Work Phone: Laboratory - Hematology and Cell countson 06-24-2022 Erythrocyte distribution width (RBC) [Entitic vol] 38.8 fL 35.1-43.9 [facility] Work Phone: Erythrocyte distribution width (RBC) [Ratio] 12.0 % 11.6-14.6 [facility] Work Phone: Immature granulocytes/100 WBC (Bld) 0.500 % 0.0-0.9 [facility] Work Phone: Comment on above: IG% - Immature Granu locytes (promyelocytes, myelocytes and metamyelocytes) > 1% indicates that a LEFT SHIFT is Present. MCH (RBC) [Entitic mass] 31.5 pg 27.0-32.0 [facility] Work Phone: Nucleated RBC/100 WBC (Bld) [Ratio] 0 % 0-5 [facility] Work Phone: MCHC Auto (RBC) [Mass/Vol]on 06-24-2022 MCHC (RBC) [Mass/Vol] 35.5 g/dL 32-36 [facility] Work Phone: No Panel Informationon 06-24 Hepatitis B Surface Antigen Non-Reactive Nonreactive [facility] Work Phone: Hepatitis C Antibody Non-Reactive Nonreactive [facility] Work Phone: Comment on above: Non Reactive: < 0.8 Equivocal: >/= 0.8 to < 1.0 Reactive: >/= 1.0The CDC recommends that a reactive/equivocal HCV antibody result be followed up by the HCV Nucleic Acid Amplificationtest (986786) Miscellaneous Test Comment MAILED SPECIMEN [facility] Work Phone: Rubella IgG Antibody Reactive Nonreactive [facility] Work Phone: Comment on above: Antibody Results Int erpretation of Immune Status Non Reactive Presumed Non-Immune Equivocal Equivocal Reactive Presumed Immune Platelets bldon 06-24-2022 Platelets (Bld) [#/Vol] 305 10*3/uL 150-450 [facility] Work Phone: Serum Treponema species anti body detectionon 06-24-2022 Treponema sp Ab Ql (S) Non-Reactive [facility] Work Phone: Chlamydia trachomatis rRNA d etection by probe and target amplification methodon 06-17-2022 C. trachomatis rRNA KATEY+probe Ql (Unsp spec) Negative Negative [facility] Work Phone: Laboratory - Drug toxicology on 06-17-2022 Amphetamines Ql (U) Negative <1000 ng/mL [facility] Work Phone: Benzodiazepines Ql (U) Negative < 200 ng/mL [facility] Work Phone: Cannabinoids Screen Ql (U) Negative < 50 ng/mL [facility] Work Phone: Cocaine Ql (U) Negative < 300 ng/mL [facility] Work Phone: Opiates Ql (U) Negative < 300 ng/mL [facility] Work Phone: Laboratory - Microbiology an d Antimicrobial susceptibilityon 06-17-2022 N. gonorrhoeae DNA KATEY+probe Ql (Unsp spec) Negative Negative [facility] Work Phone: Comment on above: Performed at: =[address] [place], [place] [id number] Director: Sondra Burnette MD, Phone: [phone] No Panel Informationon 06-17 MDMA (Ecstasy) Screen Negative < 500 ng/mL [facility] Work Phone: Urine Barbiturates Screen Negative < 200 ng/mL [facility] Work Phone: Urine Drug Screen Comment [facility] Work Phone: Comment on above: CONFIRMATORY TESTING FOR ALL POSITIVE URINE DRUG SCREENRESULTS WILL ONLY BE SENT OUT UPON PHYSICIAN ORDER. VISTA Urine Drug Screen methods provide only preliminaryanalytical test results. A more specific alternate chemicalmethod must be used in order to obtain a confirmedanalytical result. Gas chromatography/mass spectrometery(GC/MS) is the preferred confirmatory method. Clinicalconsideration and professional judgement should be appliedto any drug of abuse test result, particularly whenpreliminary positive results are used. URINE TCA TESTING MUST BE ORDERED SEPARATELY. USE TESTMNEMONIC: [facility] Urine Methadone Screen Negative < 300 ng/mL [facility] Work Phone: Urine phencyclidine (PCP) de tectionon 06-17-2022 Phencyclidine Ql (U) Negative < 25 ng/mL [facility] Work Phone: Absolute lymphocyte counton 06-06-2022 Lymphocytes Auto (Unsp spec) [#/Vol] 2.84 10*3/uL 0.83-4.51 [facility] Work Phone: Basophil percentageon 2021 Basophil percentage 5-10 SEEN /hpf 0-5 [facility] Work Phone: Basophils/100 WBC (Bld) 0.4 % 0-1 [facility] Work Phone: Bilirubin [Mass/Vol] 0.30 mg/dL 0.20-1.00 [facility] Work Phone: Comment on above: For patients on eltr ombopag therapy, use of Dimension Gorin TBIL is not recommended. Chloride [Moles/Vol] 107 mmol/L 98-107 [facility] Work Phone: Eosinophils/100 WBC (Bld) 1.9 % 0-5 [facility] Work Phone: Glucose [Mass/Vol] 91 mg/dL 74-106 [facility] Work Phone: Neutrophils (Bld) [#/Vol] 9.0 10*3/uL 2.0-7.7 [facility] Work Phone: Neutrophils/100 WBC (Bld) 69.0 % 47-70 [facility] Work Phone: Potassium [Moles/Vol] 3.5 mmol/L 3.5-5.1 [facility] Work Phone: Protein [Mass/Vol] 6.7 g/dL 6.4-8.2 [facility] Work Phone: Sodium [Moles/Vol] 138 mmol/L 136-145 [facility] Work Phone: WBC (Bld) [#/Vol] 13.0 10*3/uL 4.4-11.0 [facility] Work Phone: Bilirubin Test strip Ql (U)o n 06-06-2022 Bilirubin Ql (U) Negative Negative [facility] Work Phone: Blood erythrocytes count (nu mber/volume)on 06-06-2022 RBC (Bld) [#/Vol] 4.39 10*6/uL 4.2-5.4 [facility] Work Phone: Blood hemoglobin measurement (mass/volume)on 06-06-2022 Hemoglobin (Bld) [Mass/Vol] 13.6 g/dL 12.0-15.0 [facility] Work Phone: Blood lymphocytes/100 leukoc yteson 06-06-2022 Lymphocytes/100 WBC (Bld) 21.9 % 19-41 [facility] Work Phone: Blood monocytes/100 leukocyt eson 06-06-2022 Monocytes/100 WBC (Bld) 6.5 % 0-10 [facility] Work Phone: Blood platelet mean volumeon 06-06-2022 Platelet mean volume (Bld) [Entitic vol] 9.6 fL 6.2-12.0 [facility] Work Phone: Determination of erythrocyte mean corpuscular volume (MCV)on 06-06-2022 MCV (RBC) [Entitic vol] 87.0 fL 81-99 [facility] Work Phone: Hematocrit Auto (Bld) [Volum e fraction]on 06-06-2022 Hematocrit (Bld) [Volume fraction] 38.2 % 37-47 [facility] Work Phone: Ketones Test strip Ql (U)on 06-06-2022 Ketones Ql (U) Negative Negative [facility] Work Phone: Laboratory - Chemistry and C hemistry - challengeon 06-06-2022 HCG ( test) Ql (U) Negative [facility] Work Phone: Comment on above: TEST is *P OSITIVE* ALP [Catalytic activity/Vol] 35 U/L 45-117 [facility] Work Phone: ALT [Catalytic activity/Vol] 17 U/L 13-56 [facility] Work Phone: CO2 [Moles/Vol] 25.0 mmol/L 21.0-32.0 [facility] Work Phone: Globulin (S) [Mass/Vol] 3.2 g/dL 2.2-4.2 [facility] Work Phone: Lipase [Catalytic activity/Vol] 102 U/L 73-393 [facility] Work Phone: Urea nitrogen/Creatinine [Mass ratio] 10.3 mg/mg 10-20 [facility] Work Phone: Laboratory - Hematology and Cell countson 06-06-2022 Erythrocyte distribution width (RBC) [Entitic vol] 38.3 fL 35.1-43.9 [facility] Work Phone: Erythrocyte distribution width (RBC) [Ratio] 11.9 % 11.6-14.6 [facility] Work Phone: Immature granulocytes/100 WBC (Bld) 0.300 % 0.0-0.9 [facility] Work Phone: Comment on above: IG% - Immature Granu locytes (promyelocytes, myelocytes and metamyelocytes) > 1% indicates that a LEFT SHIFT is Present. MCH (RBC) [Entitic mass] 31.0 pg 27.0-32.0 [facility] Work Phone: Nucleated RBC/100 WBC (Bld) [Ratio] 0 % 0-5 [facility] Work Phone: MCHC Auto (RBC) [Mass/Vol]on 06-06-2022 MCHC (RBC) [Mass/Vol] 35.6 g/dL 32-36 [facility] Work Phone: Mucus LM Ql (Urine sed)on Mucus Ql (Urine sed) 0 SEEN /hpf [facility] Work Phone: Nitrite Test strip Ql (U)on 06-06-2022 Nitrite Ql (U) Negative Negative [facility] Work Phone: No Panel Informationon 06-06 Estimated Creatinine Clearance Calc 124.06 ml/min [facility] Work Phone: Estimated GFR (MDRD) Amer 137 mL/min >60 [facility] Work Phone: Comment on above: GFR Calc Estimated GFR (MDRD) Non-Af Amer 114 mL/min >60 [facility] Work Phone: Comment on above: Non- GFR Calc Platelets bldon 06-06-2022 Platelets (Bld) [#/Vol] 314 10*3/uL 150-450 [facility] Work Phone: Protein Test strip Ql (U)on 06-06-2022 Protein Ql (U) Negative Negative [facility] Work Phone: Serum or plasma albumin neel urement (mass/volume)on 06-06-2022 Albumin [Mass/Vol] 3.5 g/dL 3.2-5.0 [facility] Work Phone: Serum or plasma albumin/glob ulin mass ratioon 06-06-2022 Albumin/Globulin [Mass ratio] 1.1 {ratio} 0.9-2.4 [facility] Work Phone: Serum or plasma calcium neel urement (mass/volume)on 06-06-2022 Calcium [Mass/Vol] 9.2 mg/dL 8.5-10.1 [facility] Work Phone: Serum or plasma creatinine m easurement (mass/volume)on 06-06-2022 Creatinine [Mass/Vol] 0.68 mg/dL 0.55-1.02 [facility] Work Phone: Comment on above: The validity of the calculated GFR & GFRAA in patients over 70 years has not been determined. Clinical correlation is essential. Serum or plasma urea nitroge n measurement (mass/volume)on 06-06-2022 Urea nitrogen [Mass/Vol] 7 mg/dL 7-18 [facility] Work Phone: Squamous epithelial cells de tection in urine sediment by light microscopyon 06-06-2022 Epithelial cells.squamous LM Ql (Urine sed) 5-10 SEEN /hpf 5-10 [facility] Work Phone: Thin prep Papanicolaou smear with manual screeningon 06-06-2022 Thin prep Papanicolaou smear with manual screening 14 U/L 15-37 [facility] Work Phone: Thin prep Papanicolaou smear with manual screening 6 5-15 [facility] Work Phone: Urine blood detectionon 05-24 RBC Ql (U) 10 /ul Negative [facility] Work Phone: RBC Ql (U) 0-5 SEEN /hpf 0-5 [facility] Work Phone: Urine clarityon 06-06-2022 Clarity (U) Clear Clear [facility] Work Phone: Urine color determinationon 06-06-2022 Color (U) Straw Yellow [facility] Work Phone: Urine glucose detectionon Glucose Ql (U) 50 mg/dl Normal [facility] Work Phone: Urine leukocyte esterase det ection by dipstickon 06-06-2022 Leukocyte esterase Test strip Ql (U) 100 /ul Negative [facility] Work Phone: Urine pHon 06-06-2022 pH (U) 6.0 [pH] 5.0 - 8.0 [facility] Work Phone: Urine sediment bacteria coun t by microscopy (number/high power field)on 06-06-2022 Bacteria LM.HPF (Urine sed) [#/Area] 1 /[HPF] None Seen [facility] Work Phone: Urine specific gravity measu rementon 06-06-2022 Specific gravity (U) [Rel density] 1.015 1.002-1.030 [facility] Work Phone: Urobilinogen Auto test strip Ql (U)on 06-06-2022 Urobilinogen Ql (U) Normal mg/dl Normal [facility] Work Phone: LABORATORYOrdered By: Barb Cruz on 11-18-2021 C-Reactive Protein mg/dL Invalid Interpretation Code 0.0 - 0.9 mg/dL AO Chemistry S Basophil, Absolute 0.10 103/mcL Invalid Interpretation Code 0.00 - 0.19 10^3/mcL AO Auto Heme SS Basophils/100 WBC (Bld) 0.7 % Invalid Interpretation Code 0.0 - 2.5 % AO Auto Heme SS Calcium [Mass/Vol] 8.9 mg/dL Invalid Interpretation Code 8.4 - 10.2 mg/dL AO ADM SS Chloride [Moles/Vol] 105 mmol/L Invalid Interpretation Code 98 - 107 mmol/L AO ADM SS CO2 [Moles/Vol] 26 mmol/L Invalid Interpretation Code 22 - 29 mmol/L AO ADM SS Creatinine [Mass/Vol] 0.85 mg/dL Invalid Interpretation Code 0.55 - 1.02 mg/dL AO ADM SS Electrolyte Balance 10.0 mEq/L Invalid Interpretation Code AO ADM SS Eosinophil, Absolute 0.30 103/mcL Invalid Interpretation Code 0.00 - 0.40 10^3/mcL AO Auto Heme SS Eosinophils/100 WBC (Bld) 3.5 % Invalid Interpretation Code 0.0 - 7.0 % AO Auto Heme SS Erythrocyte distribution width (RBC) [Ratio] 12.4 % Invalid Interpretation Code 11.5 - 14.5 % AO Auto Heme SS Glucose [Mass/Vol] 104 mg/dL Invalid Interpretation Code 70 - 105 mg/dL AO ADM SS Hematocrit (Bld) [Volume fraction] 39.8 % Invalid Interpretation Code 37.0 - 47.0 % AO Auto Heme SS Hemoglobin (Bld) [Mass/Vol] 13.8 G/dL Invalid Interpretation Code 12.0 - 16.0 G/dL AO Auto Heme SS Lymphocyte, Absolute 2.80 103/mcL Invalid Interpretation Code 0.77 - 3.85 10^3/mcL AO Auto Heme SS Lymphocytes/100 WBC (Bld) 33.1 % Invalid Interpretation Code 10.0 - 50.0 % AO Auto Heme SS MCH (RBC) [Entitic mass] 29.9 pg Invalid Interpretation Code 27.0 - 31.2 pg AO Auto Heme SS MCHC (RBC) [Mass/Vol] 34.7 G/dL Invalid Interpretation Code 33.0 - 37.0 G/dL AO Auto Heme SS MCV (RBC) [Entitic vol] 86.1 fL Invalid Interpretation Code 80.0 - 94.0 fL AO Auto Heme SS Monocyte, Absolute 0.50 103/mcL Invalid Interpretation Code 0.15 - 1.00 10^3/mcL AO Auto Heme SS Monocytes/100 WBC (Bld) 5.8 % Invalid Interpretation Code 1.7 - 13.0 % AO Auto Heme SS Neutrophil, Absolute 4.80 103/mcL Invalid Interpretation Code 2.85 - 6.16 10^3/mcL AO Auto Heme SS Neutrophils/100 WBC (Bld) 56.9 % Invalid Interpretation Code 37.0 - 80.0 % AO Auto Heme SS Platelet mean volume (Bld) [Entitic vol] 7.7 fL Invalid Interpretation Code 7.4 - 10.4 fL AO Auto Heme SS Platelets (Bld) [#/Vol] 344 103/mcL Invalid Interpretation Code 130 - 400 10^3/mcL AO Auto Heme SS Potassium [Moles/Vol] 3.7 mmol/L Invalid Interpretation Code 3.5 - 5.1 mmol/L AO ADM SS RBC (Bld) [#/Vol] 4.62 106/mcL Invalid Interpretation Code 4.20 - 5.40 10^6/mcL AO Auto Heme SS Sodium [Moles/Vol] 141 mmol/L Invalid Interpretation Code 136 - 145 mmol/L AO ADM SS Urea nitrogen [Mass/Vol] 13 mg/dL Invalid Interpretation Code 7 - 18 mg/dL AO ADM SS Urea nitrogen/Creatinine [Mass ratio] 15 ratio Invalid Interpretation Code 7 - 27 ratio AO ADM SS WBC (Bld) [#/Vol] 8.50 103/mcL Invalid Interpretation Code 4.60 - 10.80 10^3/mcL AO Auto Heme SS LABORATORYOrdered By: Gaby Rod on 11-18-2021 ESR 15 minute reading (Bld) [Velocity] 6 mm/hr Invalid Interpretation Code 0 - 20 mm/hr AO Man Heme SS LABORATORYOrdered By: SYSTEM SYSTEM on 11-18-2021 GFR 100 ml/min/1.73sqm Invalid Interpretation Code AO Chemistry S GFR Non- 83 ml/min/1.73sqm Invalid Interpretation Code AO Chemistry S Sam 07-16-2021 DIMA Telephone ([facility]) ALMA HARRELL ([id number]) 2000 F Date Time Provider Department 07/16/21 MAHESH SUTTON During your visit today, we recorded the following information about you: Allergies As of Date: 07/16/2021 (No Known Allergies) Date Reviewed: 10/09/2018 Reviewed by: Nataly (Transmission And Protection Engineer) Mamta - Fully Assessed Reason for Visit: Missed Appointment [[id number]] Cmt: No show Prescriptions as of 08/09/2021 - Blfrdsnb-Sy-Ycj-Fe-FA ( VITAMIN) tab Take 1 tablet by mouth once daily. - sertraline (ZOLOFT) 100 mg tablet Take 1 tablet by mouth once daily. - Clindamycin-Benzoyl Peroxide 1.2 %(1 % base) -5 % gel Apply 1 application to affected area once daily. - Norethindrone, Contraceptive, (ORTHO MICRONOR) 0.35 mg tablet Take 1 tablet by mouth once daily. Problem List As Of Date 07/16/2021 Noted Resolved Allergic rhinitis due to pollen [J30.1] 2012 Other chronic sinusitis [J32.8] 02/24/2012 Family history of hemangioma and lymphangioma [*11/26/2017 Vaginal bleeding in , second trimester*04/12/2018 05/04/2018 Decreased movement [O36.8190] 04/30/2018 05/04/2018 uterine contractions [O47.00] 04/30/2018 06/11/2018 Syncope [R55] 05/04/2018 09/23/2018 Urinary tract infection [N39.0] 05/07/2018 09/23/2018 uterine contractions in third trimester*05/10/2018 06/11/2018 Abdominal pain [R10.9] 05/17/2018 05/17/2018 depression [O99.345, F53.0] 09/23/2018 problem [O92.70] 09/25/2018 Encounter Status:Closed by KATY RICHARDSON on 08/09/21 [facility] Sam 01-31-2021 SIMN Telephone ([facility]) SHARRIALMA VILLARREAL Chato ([id number]) 2000 F Date Time Provider Department 01/31/21 JADEN FOWLER During your visit today, we recorded the following information about you: Kenyetta Rohit 01/31/2021 3:39 PM Signed I received a message from patient Dagoberto about having medical records transferred out to a new provider. I returned call and I explained to him that I was unable to speak to him about any thing on her account because he is not on the [facility]. I also let him know that he could have the patient call in and I can explain everything to her. Allergies As of Date: 01/31/2021 (No Known Allergies) Date Reviewed: 10/09/2018 Reviewed by: Nataly (Trice) Mamta - Fully Assessed Reason for Visit: Returning Patient's Call [[id number]] Prescriptions as of 01/31/2021 Sig: VITAMIN,CALCIUM,MINE* Take 1 tablet by mouth once d* SERTRALINE 100 MG TABLET Take 1 tablet by mouth once d* CLINDAMYCIN 1.2 % (1 % BASE)-* Apply 1 application to affect* NORETHINDRONE (CONTRACEPTIVE)* Take 1 tablet by mouth once d* Problem List As Of Date 01/31/2021 Noted Resolved Allergic rhinitis due to pollen [J30.1] 2012 Other chronic sinusitis [J32.8] 02/24/2012 Family history of hemangioma and lymphangioma [*11/26/2017 More... Vaginal bleeding in , second trimester*04/12/2018 05/04/2018 Decreased movement [O36.8190] 04/30/2018 05/04/2018 uterine contractions [O47.9] 04/30/2018 06/11/2018 Syncope [R55] 05/04/2018 09/23/2018 Urinary tract infection [N39.0] 05/07/2018 09/23/2018 uterine contractions in third trimester*05/10/2018 06/11/2018 Abdominal pain [R10.9] 05/17/2018 05/17/2018 depression [O99.345, F53.0] 09/23/2018 problem [O92.70] 09/25/2018 Encounter Status:Closed by KENYETTA AWAN on 01/31/21 [facility] HARRELL ([id number]) 2000 F Date Time Provider Department 12/15/20 NINO GARCÍA [facility] During your visit today, we recorded the following information about you: Allergies As of Date: 12/15/2020 (No Known Allergies) Date Reviewed: 10/09/2018 Reviewed by: Nataly (Transmission And Protection Engineer) Mamta - Fully Assessed Reason for Visit: SCANNED MEDICAL REQUEST FROM [facility] [Other] Prescriptions as of 12/15/2020 Sig: VITAMIN,CALCIUM,MINE* Take 1 tablet by mouth once d* SERTRALINE 100 MG TABLET Take 1 tablet by mouth once d* CLINDAMYCIN 1.2 % (1 % BASE)-* Apply 1 application to affect* NORETHINDRONE (CONTRACEPTIVE)* Take 1 tablet by mouth once d* Problem List As Of Date 12/15/2020 Noted Resolved Allergic rhinitis due to pollen [J30.1] 2012 Other chronic sinusitis [J32.8] 02/24/2012 Family history of hemangioma and lymphangioma [*11/26/2017 More... Vaginal bleeding in , second trimester*04/12/2018 05/04/2018 Decreased movement [O36.8190] 04/30/2018 05/04/2018 uterine contractions [O47.9] 04/30/2018 06/11/2018 Syncope [R55] 05/04/2018 09/23/2018 Urinary tract infection [N39.0] 05/07/2018 09/23/2018 uterine contractions in third trimester*05/10/2018 06/11/2018 Abdominal pain [R10.9] 05/17/2018 05/17/2018 depression [O99.345, F53.0] 09/23/2018 problem [O92.70] 09/25/2018 Encounter Status:Closed by KENYETTA AWAN on 12/15/20 Normal [facility] Cult Urineon 05-18-2018 Cult Urine Test performed at [facility] No growth Normal [facility] Comment on above: Performed By: #### R APBV #### [place] [address] Urinalysis Routineon 018 Appearance Nom (U) CLEAR Normal [facility] Comment on above: Performed By: #### R APBV #### [place] [address] Bilirubin Urine Negative Normal Negative [facility] Comment on above: Performed By: #### R APBV #### [place] [address] Color Nom (U) YELLOW Normal [facility] Comment on above: Performed By: #### R APBV #### [place] [address] Glucose Ql (U) Negative Normal Negative [facility] Comment on above: Performed By: #### R APBV #### [place] [address] Hemoglobin,Urine Negative Normal Negative [facility] Comment on above: Performed By: #### R APBV #### [place] [address] Ketone Urine Negative Normal Negative [facility] Comment on above: Performed By: #### R APBV #### [place] [address] Leukocytes Esterase Negative Normal Negative [facility] Comment on above: Performed By: #### R APBV #### [address] [address] Nitrites Urine Negative Normal Negative [facility] Comment on above: Performed By: #### R APBV #### [facility] [address] [place] [address] pH (U) 6.0 [pH] Normal 5.0-8.0 [facility] Comment on above: Performed By: #### R APBV #### [facility] [address] [place] [address] Protein mass conc (U) Negative Normal Negative [facility] Comment on above: Performed By: #### R APBV #### [facility] [address] [place] [address] Specific [place], Ur 1.026 Normal 1.005-1.030 [facility] Comment on above: Performed By: #### R APBV #### [place] [address] Urobilinogen,Ur 1.0 EU/dL Normal 0.0-1.0 [facility] Comment on above: Performed By: #### R APBV #### [place] [address] Bacteria LM.HPF #/area (Urine sed) NONE Normal None [facility] Comment on above: Performed By: #### R APBV #### [place] [address] Ep Cells Urine 1.4 /hpf Normal 0.0-5.0 [facility] Comment on above: Performed By: #### R APBV #### [facility] [address] [place] [address] Hyaline Cast 0.4 /lpf Normal 0.0-1.0 [facility] Comment on above: Performed By: #### R APBV #### [place] [address] RBC,Urine 2.0 /hpf Normal 0.0-5.0 [facility] Comment on above: Performed By: #### R APBV #### [place] [address] WBC, Urine 2.2 /hpf Normal 0.0-5.0 [facility] Comment on above: Performed By: #### R APBV #### [facility] [address] [place] [address] Basic Panelon 05-11-2018 Creatinine mass conc 0.49 mg/dL Low 0.51-0.95 [facility] Comment on above: Performed By: #### R APTR #### [facility] [address] [place] [address] Glucose mass conc 101 mg/dL High 70-99 [facility] Comment on above: Performed By: #### R APTR #### [facility] [address] [place] [address] Urea nitrogen mass conc 5 mg/dL Low 7-18 [facility] Comment on above: Performed By: #### R APTR #### [facility] [address] [place] [address] Anion gap molar conc 13 mmol/L Normal 8-16 [facility] Comment on above: Performed By: #### R APTR #### [facility] [address] [place] [address] Calcium mass conc 8.5 mg/dL Normal 8.5-10.1 [facility] Comment on above: Performed By: #### R APTR #### [facility] [address] [place] [address] CO2 molar conc 23 mmol/L Normal 21-32 [facility] Comment on above: Performed By: #### R APTR #### [facility] [address] [place] [address] Chloride molar conc 107 mmol/L Normal 98-107 [facility] Comment on above: Performed By: #### R APTR #### [facility] [address] [place] [address] Potassium molar conc 3.4 mmol/L Low 3.5-5.1 [facility] Comment on above: Performed By: #### R APTR #### [facility] [address] [place] [address] Sodium molar conc 140 mmol/L Normal 136-145 [facility] Comment on above: Performed By: #### R APTR #### [facility] [address] [place] [address] Chlam/GC-DNA Amplifiedon Chlam/GC-DNA Amplified Test performed at [facility] Chlamydia trachomatis DNA NOT DETECTED Neisseria gonorrhoeae DNA NOT DETECTED Reference range NOT DETECTED Method: Strand Displacement Amplification-BD ProbeTec Assay Comment: A negative result does not preclude C.trachomatis or N. gonorrhoeae infection because results are dependent on adequate specimen collection, absence of inhibitors, and sufficient DNA to be detected. Normal [facility] Comment on above: Performed By: #### R APTR #### [place] [address] Cult Urineon 05-11-2018 Cult Urine Test performed at [facility] Mixed skin arvin. No further identification or susceptibility testing will be performed. Please submit a new specimen. Plates will be held for [address] [facility] Comment on above: Performed By: #### R APTR #### [facility] [address] [place] [address] Hemogram/Diffon 05-11-2018 Abs. Baso 0.00 thou/cmm Low 0.01-0.08 [facility] Comment on above: Performed By: #### R APTR #### [place] [address] Abs. [place] 0.91 thou/cmm High 0.27-0.70 [facility] Comment on above: Performed By: #### R APTR #### [place] [address] Abs. Neut (ANC) 13.58 thou/cmm High 1.56-6.13 [facility] Comment on above: Performed By: #### R APTR #### [place] [address] Basophils/100 WBC (Bld) 0.0 % Normal [facility] Comment on above: Performed By: #### R APTR #### [place] [address] Eosinophils #/vol (Bld) 0.36 thou/cmm High 0.00-0.31 [facility] Comment on above: Performed By: #### R APTR #### [facility] [address] [place], [place] [address] Eosinophils/100 WBC (Bld) 2.0 % Normal [facility] Comment on above: Performed By: #### R APTR #### [facility] [address] [place] [address] Lymphocytes #/vol (Bld) 3.26 thou/cmm Normal 1.18-3.74 [facility] Comment on above: Performed By: #### R APTR #### [facility] [address] [place] [address] Lymphocytes/100 WBC (Bld) 18.0 % Normal [facility] Comment on above: Performed By: #### R APTR #### [facility] [address] [place] [address] Monocytes/100 WBC (Bld) 5.0 % Normal [facility] Comment on above: Performed By: #### R APTR #### [facility] [address] [place] [address] RBC morphology finding Nom (Bld) Normal Normal [facility] Comment on above: Performed By: #### R APTR #### [place] [address] Seg Neutrophil 75.0 % Normal [facility] Comment on above: Performed By: #### R APTR #### [facility] [address] [place] [address] Erythrocyte distribution width Ratio (RBC) 12.5 % Normal 11.7-14.4 [facility] Comment on above: Performed By: #### R APTR #### [facility] [address] [place] [address] Hematocrit Volume Fraction (Bld) 33.5 % Low 34.1-44.9 [facility] Comment on above: Performed By: #### R APTR #### [place] [address] Hemoglobin mass conc (Bld) 11.8 g/dL Normal 11.2-15.7 [facility] Comment on above: Performed By: #### R APTR #### [facility] [address] [place] [address] MCH Entitic mass (RBC) 32.4 pg High 25.6-32.2 [facility] Comment on above: Performed By: #### R APTR #### [facility] [address] [place] [address] MCHC mass conc (RBC) 35.2 % High 31.6-34.8 [facility] Comment on above: Performed By: #### R APTR #### [facility] [address] [place] [address] MCV Entitic volume (RBC) 92.0 fL Normal 79.4-94.8 [facility] Comment on above: Performed By: #### R APTR #### [facility] [address] [place] [address] Platelet mean volume Entitic volume (Bld) 9.6 fL Normal 9.4-12.3 [facility] Comment on above: Performed By: #### R APTR #### [facility] [address] [place] [address] Platelets #/vol (Bld) 309 thou/cmm Normal 182-369 [facility] Comment on above: Performed By: #### R APTR #### [facility] [address] [place] [address] RBC #/vol (Bld) 3.64 mil/cmm Low 3.93-5.22 [facility] Comment on above: Performed By: #### R APTR #### [facility] [address] [place] [address] RDW SD 41.6 fl Normal 36.4-46.3 [facility] Comment on above: Performed By: #### R APTR #### [place] [address] WBC #/vol (Bld) 18.11 thou/cmm High 3.98-10.04 [facility] Comment on above: Performed By: #### R APTR #### [place] [address] MDRD GFRon 05-11-2018 GFR/1.73 sq M predicted among non-blacks MDRD vol rate/area (S/P/Bld) mL/min/{1.73_m2} Normal >60mL/min/1. 73m2 [facility] Comment on above: Result Comment: If t he patient is , multiply the result by 1.210. Performed By: #### R APTR #### [place] [address] Rapid Bact.Vaginosison 05-11 Rapid Bact.Vaginosis see below Normal [facility] Comment on above: Result Comment: Nega tive for the presence of bacterial vaginosis. Performed By: #### R APTR #### [place] [address] Rapid Trichomonas Agon 05-11 Rapid Trichomonas Ag see below Normal [facility] Comment on above: Result Comment: No T richomonas antigen present or the antigen level is below detection limit of the assay (2500 organisms/mL). Performed By: #### R APTR #### [place] [address] Type and Screenon 05-11-2018 ABO group Nom (Bld) A Normal [facility] Comment on above: Performed By: #### R APTR #### [place] [address] Comment See Below Normal [facility] Comment on above: Result Comment: Scre en &/or Xmatch expires in 3 days at 12 midnight. Redraw patient at that time. Performed By: #### R APTR #### [place] [address] RH Type Positive Normal [facility] Comment on above: Performed By: #### R APTR #### [place] [address] Urinalysis Routineon 018 Calcium Oxalates FEW Abnormal None [facility] Comment on above: Performed By: #### R APTR #### [facility] [address] [place] [address] Bacteria LM.HPF #/area (Urine sed) NONE Normal None [facility] Comment on above: Performed By: #### R APTR #### [facility] [address] [place] [address] Ep Cells Urine 8.0 /hpf High 0.0-5.0 [facility] Comment on above: Performed By: #### R APTR #### [facility] [address] [place] [address] Hyaline Cast 0.8 /lpf Normal 0.0-1.0 [facility] Comment on above: Performed By: #### R APTR #### [facility] [address] [place] [address] RBC,Urine 8.3 /hpf High 0.0-5.0 [facility] Comment on above: Performed By: #### R APTR #### [facility] [address] [place] [address] WBC, Urine 40.6 /hpf High 0.0-5.0 [facility] Comment on above: Performed By: #### R APTR #### [facility] [address] [place] [address] Appearance Nom (U) CLOUDY Normal [facility] Comment on above: Performed By: #### R APTR #### [facility] [address] [place] [address] Bilirubin Urine Negative Normal Negative [facility] Comment on above: Performed By: #### R APTR #### [facility] [address] [place] [address] Color Nom (U) DK YELLOW Normal [facility] Comment on above: Performed By: #### R APTR #### [facility] [address] [place] [address] Glucose Ql (U) 500 mg/dL Abnormal Negative [facility] Comment on above: Performed By: #### R APTR #### [facility] [address] [place] [address] Hemoglobin,Urine Negative Normal Negative [facility] Comment on above: Performed By: #### R APTR #### [facility] [address] [place] [address] Ketone Urine TRACE Abnormal Negative [facility] Comment on above: Performed By: #### R APTR #### [facility] [address] [place] [address] Leukocytes Esterase MODERATE Abnormal Negative [facility] Comment on above: Performed By: #### R APTR #### [facility] [address] [place] [address] Nitrites Urine Negative Normal Negative [facility] Comment on above: Performed By: #### R APTR #### [facility] [address] [place] [address] pH (U) 6.5 [pH] Normal 5.0-8.0 [facility] Comment on above: Performed By: #### R APTR #### [place] [address] Protein mass conc (U) 30 mg/dL Abnormal Negative [facility] Comment on above: Performed By: #### R APTR #### [place] [address] Specific [place], Ur 1.027 Normal 1.005-1.030 [facility] Comment on above: Performed By: #### R APTR #### [place] [address] Urobilinogen,Ur 0.2 EU/dL Normal 0.0-1.0 [facility] Comment on above: Performed By: #### R APTR #### [place] [address] Actim Promon 05-07-2018 Protein mass conc Negative Normal [facility] Comment on above: Result Comment: A po sitive result indicates the presence of IGFBP-1, a protein found in high concentrations in amniotic fluid. As false positives and negatives may occur, results must be interpreted in conjunction with all other clinical and laboratory findings. The test has been designed to minimize interference from bleeding, but in cases of heavy bleeding the blood locally may have a higher concentration of IGFBP-1 protein; therefore, a positive result should be interpreted with caution. Performed By: #### P ROM #### [facility] [address] [place] [address] Cult Urineon 05-07-2018 Protein mass conc (U) Test performed at [facility] Organisms cultured are indicative of probable nonclean catch specimen or contamination of specimen collection system. No further identification or susceptibility testing will be performed. Please submit new specimen. Plates will be held for [address] [facility] Comment on above: Performed By: #### R APTR #### [facility] [address] [place] [address] Urinalysis Routineon 018 Bacteria LM.HPF #/area (Urine sed) NONE Normal None [facility] Comment on above: Performed By: #### U RIN2 #### [place] [address] Ep Cells Urine 7.7 /hpf High 0.0-5.0 [facility] Comment on above: Performed By: #### U RIN2 #### [facility] [address] [place] [address] Hyaline Cast 0.0 /lpf Normal 0.0-1.0 [facility] Comment on above: Performed By: #### U RIN2 #### [place] [address] RBC,Urine 5.9 /hpf High 0.0-5.0 [facility] Comment on above: Performed By: #### U RIN2 #### [facility] [address] [place] [address] WBC, Urine 20.3 /hpf High 0.0-5.0 [facility] Comment on above: Performed By: #### U RIN2 #### [facility] [address] [place] [address] Appearance Nom (U) CLOUDY Normal [facility] Comment on above: Performed By: #### U RIN2 #### [place] [address] Bilirubin Urine Negative Normal Negative [facility] Comment on above: Performed By: #### U RIN2 #### [facility] [address] [place] [address] Color Nom (U) YELLOW Normal [facility] Comment on above: Performed By: #### U RIN2 #### [facility] [address] [place] [address] Glucose Ql (U) 250 mg/dL Abnormal Negative [facility] Comment on above: Performed By: #### U RIN2 #### [facility] [address] [place] [address] Hemoglobin,Urine Negative Normal Negative [facility] Comment on above: Performed By: #### U RIN2 #### [facility] [address] [place] [address] Ketone Urine Negative Normal Negative [facility] Comment on above: Performed By: #### U RIN2 #### [facility] [address] [place] [address] Leukocytes Esterase LARGE Abnormal Negative [facility] Comment on above: Performed By: #### U RIN2 #### [facility] [address] [place] [address] Nitrites Urine Negative Normal Negative [facility] Comment on above: Performed By: #### U RIN2 #### [facility] [address] [place] [address] pH (U) 7.0 [pH] Normal 5.0-8.0 [facility] Comment on above: Performed By: #### U RIN2 #### [facility] [address] [place] [address] Protein mass conc (U) Negative Normal Negative [facility] Comment on above: Performed By: #### U RIN2 #### [facility] [address] [place] [address] Specific [place], Ur 1.013 Normal 1.005-1.030 [facility] Comment on above: Performed By: #### U RIN2 #### [facility] [address] [place] [address] Urobilinogen,Ur 0.2 EU/dL Normal 0.0-1.0 [facility] Comment on above: Performed By: #### U RIN2 #### [facility] [address] [place] [address] Glucose Meteron 05-04-2018 Glucose mass conc 73 mg/dL Normal 70-99 [facility] Comment on above: Result Comment: MD Chato VILLEGAS RN NOTIFIED Performed By: #### G LMET #### [place] [address] Chlam/GC-DNA Amplifiedon Chlam/GC-DNA Amplified Test performed at [facility] Chlamydia trachomatis DNA NOT DETECTED Neisseria gonorrhoeae DNA NOT DETECTED Reference range NOT DETECTED Method: Strand Displacement Amplification-BD ProbeTec Assay Comment: A negative result does not preclude C.trachomatis or N. gonorrhoeae infection because results are dependent on adequate specimen collection, absence of inhibitors, and sufficient DNA to be detected. Normal [facility] Comment on above: Performed By: #### C TGCA #### [place] [address] Group B Strep Cultureon S. agalactiae Ag Ql (Unsp spec) Test performed at [facility] ORGANISM: Group B Streptococcus (ID: 1) Group B Streptococcus Colonization Present Normal [facility] Comment on above: Performed By: #### G BS #### [place] [address] Hemogram/Diffon 04-30-2018 Abs Immature Grans 0.10 thou/cmm High 0.00-0.05 [facility] Comment on above: Performed By: #### C BCD1 #### [place] [address] Abs. Baso 0.04 thou/cmm Normal 0.01-0.08 [facility] Comment on above: Result Comment: Smea r scanned; tech agrees with automated differential Performed By: #### C BCD1 #### [place] [address] Abs. [place] 0.83 thou/cmm High 0.27-0.70 [facility] Comment on above: Performed By: #### C BCD1 #### [facility] [address] [place], [place] [address] Abs. Neut (ANC) 11.54 thou/cmm High 1.56-6.13 [facility] Comment on above: Performed By: #### C BCD1 #### [facility] [address] [place], [place] [address] Basophils/100 WBC (Bld) 0.3 % Normal [facility] Comment on above: Performed By: #### C BCD1 #### [facility] [address] [place], [place] [address] Eosinophils #/vol (Bld) 0.24 thou/cmm Normal 0.00-0.31 [facility] Comment on above: Performed By: #### C BCD1 #### [facility] [address] [place], [place] [address] Eosinophils/100 WBC (Bld) 1.6 % Normal [facility] Comment on above: Performed By: #### C BCD1 #### [facility] [address] [place], [place] [address] Immature Grans 0.70 % Normal [facility] Comment on above: Performed By: #### C BCD1 #### [facility] [address] [place], [place] [address] Lymphocytes #/vol (Bld) 2.06 thou/cmm Normal 1.18-3.74 [facility] Comment on above: Performed By: #### C BCD1 #### [facility] [address] [place], [place] [address] Lymphocytes/100 WBC (Bld) 13.9 % Normal [facility] Comment on above: Performed By: #### C BCD1 #### [facility] [address] [place], [place] [address] Monocytes/100 WBC (Bld) 5.6 % Normal [facility] Comment on above: Performed By: #### C BCD1 #### [facility] [address] [place], [place] [address] Seg Neutrophil 77.9 % Normal [facility] Comment on above: Performed By: #### C BCD1 #### [facility] [address] [place] [address] Erythrocyte distribution width Ratio (RBC) 12.8 % Normal 11.7-14.4 [facility] Comment on above: Performed By: #### C BCD1 #### [facility] [address] [place] [address] Hematocrit Volume Fraction (Bld) 33.8 % Low 34.1-44.9 [facility] Comment on above: Performed By: #### C BCD1 #### [facility] [address] [place] [address] Hemoglobin mass conc (Bld) 11.9 g/dL Normal 11.2-15.7 [facility] Comment on above: Performed By: #### C BCD1 #### [facility] [address] [place] [address] MCH Entitic mass (RBC) 32.7 pg High 25.6-32.2 [facility] Comment on above: Performed By: #### C BCD1 #### [facility] [address] [place] [address] MCHC mass conc (RBC) 35.2 % High 31.6-34.8 [facility] Comment on above: Performed By: #### C BCD1 #### [facility] [address] [place] [address] MCV Entitic volume (RBC) 92.9 fL Normal 79.4-94.8 [facility] Comment on above: Performed By: #### C BCD1 #### [facility] [address] [place] [address] Platelet mean volume Entitic volume (Bld) 9.7 fL Normal 9.4-12.3 [facility] Comment on above: Performed By: #### C BCD1 #### [facility] [address] [place] [address] Platelets #/vol (Bld) 265 thou/cmm Normal 182-369 [facility] Comment on above: Performed By: #### C BCD1 #### [facility] [address] [place] [address] RBC #/vol (Bld) 3.64 mil/cmm Low 3.93-5.22 [facility] Comment on above: Performed By: #### C BCD1 #### [place] [address] RDW SD 43.4 fl Normal 36.4-46.3 [facility] Comment on above: Performed By: #### C BCD1 #### [place] [address] WBC #/vol (Bld) 14.81 thou/cmm High 3.98-10.04 [facility] Comment on above: Performed By: #### C BCD1 #### [place] [address] Rapid Bact.Vaginosison 04-30 Rapid Bact.Vaginosis see below Normal [facility] Comment on above: Result Comment: Nega tive for the presence of bacterial vaginosis. Performed By: #### R APBV #### [place] [address] Rapid Trichomonas Agon 04-30 Rapid Trichomonas Ag see below Normal [facility] Comment on above: Result Comment: No T richomonas antigen present or the antigen level is below detection limit of the assay (2500 organisms/mL). Performed By: #### R APTR #### [place] [address] Type and Screenon 04-30-2018 ABO group Nom (Bld) A Normal [facility] Comment on above: Performed By: #### T &S #### [place] [address] Comment See Below Normal [facility] Comment on above: Result Comment: Scre en &/or Xmatch expires in 3 days at 12 midnight. Redraw patient at that time. Performed By: #### T &S #### [place] [address] RH Type Positive Normal [facility] Comment on above: Performed By: #### T &S #### [place] [address] Urinalysis Routineon 018 Bacteria LM.HPF #/area (Urine sed) NONE Normal None [facility] Comment on above: Performed By: #### U RIN2 #### [facility] [address] [place] [address] Ep Cells Urine 0.5 /hpf Normal 0.0-5.0 [facility] Comment on above: Performed By: #### U RIN2 #### [facility] [address] [place] [address] Hyaline Cast 0.4 /lpf Normal 0.0-1.0 [facility] Comment on above: Performed By: #### U RIN2 #### [facility] [address] [place] [address] RBC,Urine 0.7 /hpf Normal 0.0-5.0 [facility] Comment on above: Performed By: #### U RIN2 #### [facility] [address] [place] [address] WBC, Urine 0.2 /hpf Normal 0.0-5.0 [facility] Comment on above: Performed By: #### U RIN2 #### [facility] [address] [place] [address] Appearance Nom (U) CLEAR Normal [facility] Comment on above: Performed By: #### U RIN2 #### [facility] [address] [place] [address] Bilirubin Urine Negative Normal Negative [facility] Comment on above: Performed By: #### U RIN2 #### [facility] [address] [place] [address] Color Nom (U) YELLOW Normal [facility] Comment on above: Performed By: #### U RIN2 #### [facility] [address] [place] [address] Glucose Ql (U) Negative Normal Negative [facility] Comment on above: Performed By: #### U RIN2 #### [facility] [address] [place] [address] Hemoglobin,Urine Negative Normal Negative [facility] Comment on above: Performed By: #### U RIN2 #### [facility] [address] [place] [address] Ketone Urine 15 mg/dL Abnormal Negative [facility] Comment on above: Performed By: #### U RIN2 #### [facility] [address] [place] [address] Leukocytes Esterase Negative Normal Negative [facility] Comment on above: Performed By: #### U RIN2 #### [facility] [address] [place] [address] Nitrites Urine Negative Normal Negative [facility] Comment on above: Performed By: #### U RIN2 #### [facility] [address] [place] [address] pH (U) 7.0 [pH] Normal 5.0-8.0 [facility] Comment on above: Performed By: #### U RIN2 #### [facility] [address] [place] [address] Protein mass conc (U) Negative Normal Negative [facility] Comment on above: Performed By: #### U RIN2 #### [facility] [address] [place] [address] Specific [place], Ur 1.004 Normal 1.005-1.030 [facility] Comment on above: Performed By: #### U RIN2 #### [facility] [address] [place] [address] Urobilinogen,Ur 0.2 EU/dL Normal 0.0-1.0 [facility] Comment on above: Performed By: #### U RIN2 #### [facility] [address] [place] [address] CURon 01-20-2018 CUR . MICRO - MicrobiologyPROCEDURE: Urine Culture [*1] Urine BODY SITE:COLLECTED DATE/TIME: 01/17/2018 21:30 EST RECEIVED DATE/TIME: 01/18/2018 20:26 ESTSTART DATE/TIME: 01/18/2018 20:27 EST FREE TEXT SOURCE:FINAL REPORTSFinal Report []Verified Date/Time/Personnel: 01/20/2018 07:22 EST>100,000 organisms per mLMixed without predominant isolate(s). SensitivityTesting not indicated. Probably contamination. Repeatculture suggested.PRELIMINAR Y REPORTSPreliminary Report []Verified Date/Time/Personnel: 01/19/2018 10:15 ESTNo growth to datePerforming Locations*1: This test was performed at: [facility], [address] [place] [address], [id number] , [facility] Normal [facility] ([place]) Comment on above: Performed By: #### C UR ####[address] [address] .Urinalysis Microscopic (AO) on 01-17-2018 RBC Test strip #/vol (U) None Seen Normal None Seen [facility] ([place]) Comment on above: Performed By: #### U A, UAMICAO ####[address] [place], [place] [address] UA Bacteria Trace Abnormal [facility] ([place]) Comment on above: Performed By: #### U A, UAMICAO ####[address] [place], [place] [address] UA Squam Epithelial 5-10 Abnormal None Seen [facility] ([place]) Comment on above: Performed By: #### U A, UAMICAO ####[address] [place], [place] [address] UA WBC 0-5 Abnormal None Seen [facility] ([place]) Comment on above: Performed By: #### U A, UAMICAO ####[address] [place], [place] [address] UAon 01-17-2018 Color Nom (U) YELLOW Normal [facility] ([place]) Comment on above: Performed By: #### U A, UAMICAO ####[address] [place], [place] [address] Glucose mass conc (U) 100 mg/dL Abnormal Negative [facility] ([place]) Comment on above: Performed By: #### U A, UAMICAO ####[address] [place], [place] [address] Ketones Ql (U) Negative [facility] ([place]) Comment on above: Performed By: #### U A, UAMICAO ####[address] [place] [address] UA Appear CLEAR [facility] ([place]) Comment on above: Performed By: #### U A, UAMICAO ####[address] [place] [address] UA Blood Negative [facility] ([place]) Comment on above: Performed By: #### U A, UAMICAO ####[address] [place] [address] UA Leuk Est TRACE [facility] ([place]) Comment on above: Performed By: #### U A, UAMICAO ####[address] [place] [address] UA Nitrite Negative [facility] ([place]) Comment on above: Performed By: #### U A, UAMICAO ####[address] [place] [address] UA pH 7.0 [facility] ([place]) Comment on above: Performed By: #### U A, UAMICAO ####[address] [place] [address] UA Protein Negative [facility] ([place]) Comment on above: Performed By: #### U A, UAMICAO ####[address] [place] [address] UA Spec Grav 1.015 [facility] ([place]) Comment on above: Performed By: #### U A, UAMICAO ####[address] [place] [address] UA Specimen Type Void [facility] ([place]) Comment on above: Performed By: #### U A, UAMICAO ####[address] [place] [address] UA Urobilinogen 0.2 E.U./dL [facility] ([place]) Comment on above: Performed By: #### U A, UAMICAO ####[address] [address] Urobilinogen Test strip Qn (U) Negative Normal [facility] ([place]) Comment on above: Performed By: #### URIAH Simon ####[address] [place] [address] .Auto Diffon 11-21-2017 Ammonia mass conc (P) 0.70 10 3/mcL Normal 0.15-1.00 [facility] ([place]) Comment on above: Performed By: #### B MP, GFR, CBC, ADIFF, ANEU ####[address] [place], [place] [address] Basophils Auto #/vol (Bld) 0.10 10 3/mcL Normal 0.00-0.19 [facility] ([place]) Comment on above: Performed By: #### B MP, GFR, CBC, ADIFF, ANEU ####[address] [place], [place] [address] Basophils/100 WBC Auto (Bld) 0.4 % Normal 0.0-2.5 [facility] ([place]) Comment on above: Performed By: #### B MP, GFR, CBC, ADIFF, ANEU ####[address] [address] Eosinophils Auto #/vol (Bld) 0.10 10 3/mcL Normal 0.00-0.40 [facility] ([place]) Comment on above: Performed By: #### B MP, GFR, CBC, ADIFF, ANEU ####[address] [address] Eosinophils/100 WBC Auto (Bld) 0.8 % Normal 0.0-7.0 [facility] ([place]) Comment on above: Performed By: #### B MP, GFR, CBC, ADIFF, ANEU ####[address] [place], [place] [address] Lymphocytes Auto #/vol (Bld) 2.40 10 3/mcL Normal 0.77-3.85 [facility] ([place]) Comment on above: Performed By: #### B MP, GFR, CBC, ADIFF, ANEU ####[address] [place], [place] [address] Lymphocytes/100 WBC Auto (Bld) 17.6 % Normal 10.0-50.0 [facility] ([place]) Comment on above: Performed By: #### B MP, GFR, CBC, ADIFF, ANEU ####[address] [place], [place] [address] Monocytes/100 WBC Auto (Bld) 5.5 % Normal 1.7-13.0 [facility] ([place]) Comment on above: Performed By: #### B MP, GFR, CBC, ADIFF, ANEU ####[address] [place], [place] [address] Neutrophils/100 WBC Auto (Bld) 75.7 % Normal 37.0-80.0 [facility] ([place]) Comment on above: Performed By: #### B MP, GFR, CBC, ADIFF, ANEU ####[address] [place], [place] [address] .GFRon 11-21-2017 GFR Non- >60 Normal [facility] ([place]) Comment on above: Result Comment: GFR Population mean for , Non- Americans Ages 20-29 = 116 mL/min/1.73 sq.m. Ages 30-39 = 107 mL/min/1.73 sq.m. Ages 40-49 = 99 mL/min/1.73 sq.m. Ages 50-59 = 93 mL/min/1.73 sq.m. Ages 60-69 = 85 mL/min/1.73 sq.m. Ages 70+ = 75 mL/min/1.73 sq.m.Chronic Kidney Disease: Less than 60 mL/min/1.73 square metersEnd Stage Renal Disease: Less than 15 mL/min/1.73 square meters Performed By: #### B MP, GFR, CBC, ADIFF, ANEU ####[address] [place], [place] [address] GFR 171 ml/min/1.73sqm Normal [facility] ([place]) Comment on above: Result Comment: GFR Population mean for , Non- Americans Ages 20-29 = 116 mL/min/1.73 sq.m. Ages 30-39 = 107 mL/min/1.73 sq.m. Ages 40-49 = 99 mL/min/1.73 sq.m. Ages 50-59 = 93 mL/min/1.73 sq.m. Ages 60-69 = 85 mL/min/1.73 sq.m. Ages 70+ = 75 mL/min/1.73 sq.m.Chronic Kidney Disease: Less than 60 mL/min/1.73 square metersEnd Stage Renal Disease: Less than 15 mL/min/1.73 square meters Performed By: #### B MP, GFR, CBC, ADIFF, ANEU ####[address] [place], [place] [address] .NEUABSon 11-21-2017 Neutrophil, Absolute 10.20 10 3/mcL High 2.85-6.16 [facility] ([place]) Comment on above: Performed By: #### B MP, GFR, CBC, ADIFF, ANEU ####[address] [place], [place] [address] BMPon 11-21-2017 Calcium mass conc 9.3 mg/dL Normal 8.4-10.2 [facility] ([place]) Comment on above: Performed By: #### B MP, GFR, CBC, ADIFF, ANEU ####[address] [place], [place] [address] Chloride molar conc 104 mmol/L Normal 98-107 [facility] ([place]) Comment on above: Performed By: #### B MP, GFR, CBC, ADIFF, ANEU ####[address] [place], [place] [address] CO2 molar conc 22 mmol/L Normal 22-29 [facility] ([place]) Comment on above: Performed By: #### B MP, GFR, CBC, ADIFF, ANEU ####[address] [place], [place] [address] Creatinine mass conc 0.6 mg/dL Normal 0.6-1.2 [facility] ([place]) Comment on above: Performed By: #### B MP, GFR, CBC, ADIFF, ANEU ####[address] [place], [place] [address] Electrolyte Balance 11.0 mEq/L Normal [facility] ([place]) Comment on above: Performed By: #### B MP, GFR, CBC, ADIFF, ANEU ####[address] [place], [place] [address] Glucose mass conc 80 mg/dL Normal 70-105 [facility] ([place] Comment on above: Performed By: #### B MP, GFR, CBC, ADIFF, ANEU ####[address] [place], [place] [address] Potassium molar conc 3.8 mmol/L Normal 3.5-5.1 [facility] ([place] Comment on above: Performed By: #### B MP, GFR, CBC, ADIFF, ANEU ####[address] [place], [place] [address] Sodium molar conc 137 mmol/L Normal 136-146 [facility] ([place] Comment on above: Performed By: #### B MP, GFR, CBC, ADIFF, ANEU ####[address] [place], [place] [address] Urea nitrogen mass conc 4.6 mg/dL Low 7.0-18.0 [facility] ([place] Comment on above: Performed By: #### B MP, GFR, CBC, ADIFF, ANEU ####[address] [place], [place] [address] Urea nitrogen/Creatinine mass ratio 8 ratio Normal 7-27 [facility] ([place] Comment on above: Performed By: #### B MP, GFR, CBC, ADIFF, ANEU ####[address] [place], [place] [address] CBCon 11-21-2017 Erythrocyte distribution width Auto Ratio (RBC) 13.1 % Normal 11.5-14.5 [facility] ([place] Comment on above: Performed By: #### B MP, GFR, CBC, ADIFF, ANEU ####[address] [place], [place] [address] Hematocrit Auto Volume Fraction (Bld) 41.0 % Normal 37.0-47.0 [facility] ([place] Comment on above: Performed By: #### B MP, GFR, CBC, ADIFF, ANEU ####[address] [place], [place] [address] Hemoglobin mass conc (Bld) 14.1 G/dL Normal 12.0-16.0 [facility] ([place] Comment on above: Performed By: #### B MP, GFR, CBC, ADIFF, ANEU ####[address] [place], [place] [address] MCH Auto Entitic mass (RBC) 30.7 pg Normal 27.0-31.2 [facility] ([place] Comment on above: Performed By: #### B MP, GFR, CBC, ADIFF, ANEU ####[address] [place], [place] [address] MCHC Auto mass conc (RBC) 34.4 G/dL Normal 33.0-37.0 [facility] ([place] Comment on above: Performed By: #### B MP, GFR, CBC, ADIFF, ANEU ####[address] [place], [place] [address] MCV Auto Entitic volume (RBC) 89.3 fL Normal 80.0-94.0 [facility] ([place] Comment on above: Performed By: #### B MP, GFR, CBC, ADIFF, ANEU ####[address] [place], [place] [address] Platelet mean volume Auto Entitic volume (Bld) 8.2 fL Normal 7.4-10.4 [facility] ([place] Comment on above: Performed By: #### B MP, GFR, CBC, ADIFF, ANEU ####[address] [place], [place] [address] Platelets Auto #/vol (Bld) 274 10 3/mcL Normal 130-400 [facility] ([place]) Comment on above: Performed By: #### B MP, GFR, CBC, ADIFF, ANEU ####[address] [place], [place] [address] RBC Auto #/vol (Bld) 4.59 10 6/mcL Normal 4.20-5.40 [facility] ([place]) Comment on above: Performed By: #### B MP, GFR, CBC, ADIFF, ANEU ####[address] [place], [place] [address] WBC Auto #/vol (Bld) 13.50 10 3/mcL High 4.60-10.80 [facility] ([place]) Comment on above: Performed By: #### B MP, GFR, CBC, ADIFF, ANEU ####[address] [place], [place] [address] Basic Metabolic Panelon 07-0 BUN/Creatinine Ratio 13 mg/mg Normal 7- [facility], later [facility] Comment on above: Order Comment: CBN Performed By: #### B MP ####[address] [address] Calcium 9.2 mg/dL Normal 8.4-10.2 [facility] Comment on above: Order Comment: CBN Performed By: #### B MP ####[address] [address] Chloride 101 mmol/L Normal 98-107 [facility] Comment on above: Order Comment: CBN Performed By: #### B MP ####[address] [address] CO2 22 mmol/L Normal 22-29 [facility] Comment on above: Order Comment: CBN Performed By: #### B MP ####[address] [address] Creatinine 0.8 mg/dL Normal 0.6-1.2 [facility] Comment on above: Order Comment: CBN Performed By: #### B MP ####[address] [address] Electrolyte Balance 13.0 mEq/L Normal [facility] Comment on above: Order Comment: CBN Performed By: #### B MP ####[address] [address] Glucose mass conc 80 mg/dL Normal 70-105 [facility] Comment on above: Order Comment: CBN Performed By: #### B MP ####[address] [address] Potassium molar conc 4.0 mmol/L Normal 3.5-5.1 [facility] Comment on above: Order Comment: CBN Performed By: #### B MP ####[address] [address] Sodium 136 mmol/L Normal 136-146 [facility] Comment on above: Order Comment: CBN Performed By: #### B MP ####[address] [address] Urea nitrogen 10 mg/dL Normal 7-18 [facility] Comment on above: Order Comment: CBN Performed By: #### B MP ####[address] [address] Beta Strep Antigenon 017 Beta Strep Antigen CBNCBNMRN#: [id number] Name: ALMA QUAN D.o.b.: 2000 Sex: Hankins# Loc [facility] [id number] ERO TH Throat 05/30/17NTIBIOTICS AT COL.: See DELANO [address]ña[address] [place] [address] Dieudonne Jackson S CB NCBNBeta Strep Antigen FINALNegative for Group A Strep.AGARWAL FOR RESULTS: - NEW RESULTATT.PHYS.: DELANO DALY LOCATION: ERO--ADM.DATE: 05/30/17 PATIENT : ALMA QUAN NMICROBIOLOGYPRINTED: 05/30/17 14:34 REGULAR 2 PAGE: 2 of 1 1 Normal [facility] Comment on above: Performed By: #### B SA ####[facility], [address] [place] [address] CBC (AO)on 05-30-2017 Basophils Auto #/vol (Bld) 0.00 10 3/mcL Normal 0.00-0.19 [facility] Comment on above: Order Comment: CBN Performed By: #### C BCO ####[address] [address] Basophils/100 WBC Auto (Bld) 0.1 % Normal 0.0-2.5 [facility] Comment on above: Order Comment: CBN Performed By: #### C BCO ####[address] [address] Eosinophils 0.00 10 3/mcL Normal 0.00-0.40 [facility] Comment on above: Order Comment: CBN Performed By: #### C BCO ####[address] [address] Eosinophils/100 leukocytes 0.0 % Normal 0.0-7.0 [facility] Comment on above: Order Comment: CBN Performed By: #### C BCO ####[address] [address] Erythrocyte distribution width Auto Ratio (RBC) 13.3 % Normal 11.5-14.5 [facility] Comment on above: Order Comment: CBN Performed By: #### C BCO ####[address] [address] Erythrocytes (RBC) 4.80 10 6/mcL Normal 4.20-5.40 [facility] Comment on above: Order Comment: CBN Performed By: #### C BCO ####[address] [address] Hematocrit (HCT) 42.2 % Normal 37.0-47.0 [facility] Comment on above: Order Comment: CBN Performed By: #### C BCO ####[address] [address] Hemoglobin mass conc (Bld) 14.2 G/dL Normal 12.0-16.0 [facility] Comment on above: Order Comment: CBN Performed By: #### C BCO ####[place] [id number] Lymphocytes 1.10 10 3/mcL Normal 0.77-3.85 [facility] Comment on above: Order Comment: CBN Performed By: #### C BCO ####[place] [id number] Lymphocytes/100 leukocytes 8.6 % Low 10.0-50.0 [facility] Comment on above: Order Comment: CBN Performed By: #### C BCO ####[address] [address] MCH 29.5 pg Normal 27.0-31.2 [facility] Comment on above: Order Comment: CBN Performed By: #### C BCO ####[address] [address] MCHC mass conc (RBC) 33.5 G/dL Normal 33.0-37.0 [facility] Comment on above: Order Comment: CBN Performed By: #### C BCO ####[address] [address] MCV 87.8 fL Normal 80.0-94.0 [facility] Comment on above: Order Comment: CBN Performed By: #### C BCO ####[address] [address] Monocytes 1.20 10 3/mcL High 0.15-1.00 [facility] Comment on above: Order Comment: CBN Performed By: #### C BCO ####[address] [address] Monocytes/100 leukocytes 9.8 % Normal 1.7-13.0 [facility] Comment on above: Order Comment: CBN Performed By: #### C BCO ####[address] [address] Neutrophils 10.40 10 3/mcL High 2.85-6.16 [facility] Comment on above: Order Comment: CBN Performed By: #### C BCO ####[address] [address] Neutrophils/100 WBC Auto (Bld) 81.5 % High 37.0-80.0 [facility] Comment on above: Order Comment: CBN Performed By: #### C BCO ####[address] [address] Platelet mean volume (PMV) 7.7 fL Normal 7.4-10.4 [facility] Comment on above: Order Comment: CBN Performed By: #### C BCO ####[address] [address] Platelets 200 10 3/mcL Normal 130-400 [facility] Comment on above: Order Comment: CBN Performed By: #### C BCO ####[address] [address] WBC (Leukocytes) 12.80 10 3/mcL High 4.60-10.80 [facility] Comment on above: Order Comment: CBN Performed By: #### C BCO ####[address] [address] Culture Beta Strep Onlyon Culture Beta Strep Only CBNCBNMRN#: [id number] Name: ALMA QUAN Chato Juan: 2000 Sex: Hankins# Loc [facility] [id number] ERO TH Throat 05/30/17NTIBIOTICS AT COL.: See DELANO Acuña[address] [place] [address] C O M M E N T S CB NCBNCulture Beta Strep Only FINALOrganism 01 Group C Beta Streptococcus 06/01/17Rare coloniesSensitivity testing not indicated.AGARWAL FOR RESULTS: - NEW RESULTATT.PHYS.: DELANO DALY LOCATION: ERO--ADM.DATE: 05/30/17 PATIENT : ALMA QUAN NMICROBIOLOGYPRINTED: 06/01/17 11:16 REGULAR 3 PAGE: 3 of 2 2 Normal [facility] Comment on above: Performed By: #### B SO ####[facility], [address] [place] [address] ED Note-Provideron 7 ED Note-Provider Normal [facility] Glomerular Filtration Rate E stimateon 05-30-2017 eGFR (non-black) mL/min/{1.73_m2} Normal [facility] Comment on above: Order Comment: CBN Performed By: #### G FR ####[address] [address] Mononucleosison 05-30-2017 Monocytes Negative Normal NEGATIVE [facility] Comment on above: Performed By: #### M YESSY ####[address] [address] Patient Summary Documentson 05-30-2017 Patient Summary Documents Normal [facility] Culture, urine Bacteria identified Cx Nom (U) Lactobacillus sp. [facility] Work Phone: Bacteria identified Cx Nom (U) Positive [facility] Work Phone: Vital Signs Date Time Vital Sign Value Performing Clinician Facility 05-12-2025 15:52-0400 Body mass index (BMI) [Ratio] 31.04 kg/m2 Lul Wong CHIEF VENDOR QUALITY.[employer] Work Phone: [facility] 05-12-2025 15:52-0400 Body temperature 98.8 [degF] Lul Wong CHIEF VENDOR QUALITY.[employer] Work Phone: [facility] 05-12-2025 15:52-0400 Body weight 89.9 kg Lul Wong CHIEF VENDOR QUALITY.[employer] Work Phone: [facility] 05-12-2025 15:52-0400 Diastolic blood pressure 87 mm[Hg] Lul Wong CHIEF VENDOR QUALITY.[employer] Work Phone: [facility] 05-12-2025 15:52-0400 Heart rate 116 /min Lul Wong CHIEF VENDOR QUALITY.[employer] Work Phone: [facility] 05-12-2025 15:52-0400 Respiratory rate 18 /min Lul Wong CHIEF VENDOR QUALITY.[employer] Work Phone: [facility] 05-12-2025 15:52-0400 SaO2% (BldA) [Mass fraction] 96 % Lul Wong CHIEF VENDOR QUALITY.[employer] Work Phone: [facility] 05-12-2025 15:52-0400 Systolic blood pressure 125 mm[Hg] Lul Wong CHIEF VENDOR QUALITY.[employer] Work Phone: [facility] 02-22-2025 17:38-0400 Body mass index (BMI) [Ratio] 30.73 kg/m2 Mariposa FUENTES-C Work Phone: [facility] 02-22-2025 17:38-0400 Body temperature 99.3 [degF] Mariposa Clutter PA-C Work Phone: [facility] 02-22-2025 17:38-0400 Body weight 89 kg Mariposa Clutter PA-C Work Phone: [facility] 02-22-2025 17:38-0400 Diastolic blood pressure 81 mm[Hg] Mariposa Clutter PA-C Work Phone: [facility] 02-22-2025 17:38-0400 Heart rate 124 /min Mariposa Clutter PA-C Work Phone: [facility] 02-22-2025 17:38-0400 Respiratory rate 18 /min Mariposa Clutter PA-C Work Phone: [facility] 02-22-2025 17:38-0400 SaO2% (BldA) [Mass fraction] 97 % Mariposa Clutter PA-C Work Phone: [facility] 02-22-2025 17:38-0400 Systolic blood pressure 120 mm[Hg] Mariposa Clutter PA-C Work Phone: [facility] 06-14-2024 09:43-0400 Diastolic Blood Pressure Non-Invasive 68 mm[Hg] DR SHAVONNE REILLY MD [facility] 06-14-2024 09:43-0400 Heart rate 98 /min DR SHAVONNE REILLY MD [facility] 06-14-2024 09:43-0400 Respiratory rate 20 /min DR SHAVONNE REILLY MD [facility] 06-14-2024 09:43-0400 Systolic Blood Pressure Non-Invasive 107 mm[Hg] DR SHAVONNE REILLY MD [facility] 06-14-2024 08:13-0400 Body temperature 98.42 [degF] DR SHAVONNE REILLY MD [facility] 06-14-2024 08:13-0400 Diastolic Blood Pressure Non-Invasive 86 mm[Hg] DR SHAVONNE REILLY MD [facility] 06-14-2024 08:13-0400 Heart rate 97 /min DR SHAVONNE REILLY MD [facility] 06-14-2024 08:13-0400 Respiratory rate 16 /min DR SHAVONNE REILLY MD [facility] 06-14-2024 08:13-0400 Systolic Blood Pressure Non-Invasive 114 mm[Hg] DR SHAVONNE REILLY MD [facility] 05-27-2024 20:45-0400 Diastolic Blood Pressure Non-Invasive 72 mm[Hg] DR RAMONITA BENSON MD [facility] 05-27-2024 20:45-0400 Heart rate 74 /min DR RAMONITA BENSON MD [facility] 05-27-2024 20:45-0400 Reason For Taking VItal Signs DR RAMONITA BENSON MD [facility] 05-27-2024 20:45-0400 Respiratory rate 20 /min DR RAMONITA BENSON MD [facility] 05-27-2024 20:45-0400 Systolic Blood Pressure Non-Invasive 122 mm[Hg] DR RAMONITA BENSON MD [facility] 05-27-2024 17:57-0400 Body temperature 97.52 [degF] DR RAMONITA BENSON MD [facility] 05-27-2024 17:57-0400 Diastolic Blood Pressure Non-Invasive 69 mm[Hg] DR RAMONITA BENSON MD [facility] 05-27-2024 17:57-0400 Heart rate 88 /min DR RAMONITA BENSON MD [facility] 05-27-2024 17:57-0400 Respiratory rate 20 /min DR RAMONITA BENSON MD [facility] 05-27-2024 17:57-0400 Systolic Blood Pressure Non-Invasive 99 mm[Hg] DR RAMONITA BENSON MD [facility] 02-21-2024 16:59-0400 Diastolic Blood Pressure Non-Invasive 67 mm[Hg] SUBHA REICHFIELD DO [facility] 02-21-2024 16:59-0400 Heart rate 81 /min SUBHA REICHFIELD DO [facility] 02-21-2024 16:59-0400 Reason For Taking VItal Signs SUBHA REICHFIELD DO [facility] 02-21-2024 16:59-0400 Respiratory rate 18 /min SUBHA REICHFIELD DO [facility] 02-21-2024 16:59-0400 Systolic Blood Pressure Non-Invasive 107 mm[Hg] SUBHA REICHFIELD DO [facility] 02-21-2024 15:36-0400 Blood Pressure Location SUBHA REICHFIELD DO [facility] 02-21-2024 15:36-0400 Body temperature 98.6 [degF] SUBHA REICHFIELD DO [facility] 02-21-2024 15:36-0400 Diastolic Blood Pressure Non-Invasive 79 mm[Hg] SUBHA REICHFIELD DO [facility] 02-21-2024 15:36-0400 Heart rate 73 /min SUBHA REICHFIELD DO [facility] 02-21-2024 15:36-0400 Respiratory rate 20 /min [facility] 02-21-2024 15:36-0400 Systolic Blood Pressure Non-Invasive 121 mm[Hg] [facility] 02-19-2024 13:59-0400 Diastolic Blood Pressure Non-Invasive 80 mm[Hg] MARIPOSA BOWER MD [facility] 02-19-2024 13:59-0400 Heart rate 83 /min MARIPOSA BOWER MD [facility] 02-19-2024 13:59-0400 Systolic Blood Pressure Non-Invasive 113 mm[Hg] MARIPOSA BOWER MD [facility] 02-19-2024 13:38-0400 Diastolic Blood Pressure Non-Invasive 78 mm[Hg] MARIPOSA BOWER MD [facility] 02-19-2024 13:38-0400 Heart rate 87 /min MARIPOSA BOWER MD [facility] 02-19-2024 13:38-0400 Respiratory rate 17 /min MARIPOSA BOWER MD [facility] 02-19-2024 13:38-0400 Systolic Blood Pressure Non-Invasive 120 mm[Hg] MARIPOSA BOWER MD [facility] 02-19-2024 13:23-0400 Diastolic Blood Pressure Non-Invasive 75 mm[Hg] MARIPOSA BOWER MD [facility] 02-19-2024 13:23-0400 Heart rate 88 /min MARIPOSA BOWER MD [facility] 02-19-2024 13:23-0400 Respiratory rate 18 /min MARIPOSA BOWER MD [facility] 02-19-2024 13:23-0400 Systolic Blood Pressure Non-Invasive 122 mm[Hg] MARIPOSA BOWER MD [facility] 02-19-2024 13:10-0400 Respiratory rate 14 /min MARIPOSA BOWER MD [facility] 02-19-2024 12:01-0400 Body temperature 96.44 [degF] MARIPOSA BOWER MD [facility] 02-19-2024 12:00-0400 Respiratory Rate - Anes 9 br/min MARIPOSA BOWER MD [facility] 02-19-2024 11:55-0400 Respiratory Rate - Anes 30 br/min MARIPOSA BOWER MD [facility] 02-19-2024 11:50-0400 Body temperature 97.65 [degF] MARIPOSA BOWER MD [facility] 02-19-2024 11:50-0400 Respiratory Rate - Anes 16 br/min MARIPOSA BOWER MD [facility] 02-19-2024 11:45-0400 Body temperature 97.7 [degF] MARIPOSA BOWER MD [facility] 02-19-2024 11:40-0400 Body temperature 97.59 [degF] MARIPOSA BOWER MD [facility] 02-19-2024 08:50-0400 Body height 170 cm MARIPOSA BOWER MD [facility] 02-19-2024 08:50-0400 Body temperature 96.98 [degF] MARIPOSA BOWER MD [facility] 02-19-2024 08:50-0400 Body weight 96.6 kg MARIPOSA BOWER MD [facility] 02-19-2024 08:50-0400 Heart rate 77 /min MARIPOSA BOWER MD [facility] 02-05-2024 08:07-0400 Blood Pressure Location MARIPOSA BOWER MD [facility] 02-05-2024 08:07-0400 Body height 170.2 cm MARIPOSA BOWER MD [facility] 02-05-2024 08:07-0400 Body weight 96.6 kg MARIPOSA BOWER MD [facility] 02-05-2024 08:07-0400 Body weight 33.35 kg/m2 MARIPOSA BOWER MD [facility] 02-05-2024 08:07-0400 Diastolic Blood Pressure Non-Invasive 84 mm[Hg] MARIPOSA BOWER MD [facility] 02-05-2024 08:07-0400 Heart rate 96 /min MARIPOSA BOWER MD [facility] 02-05-2024 08:07-0400 Respiratory rate 20 /min MARIPOSA BOWER MD [facility] 02-05-2024 08:07-0400 Systolic Blood Pressure Non-Invasive 116 mm[Hg] MARIPOSA BOWER MD [facility] 12-31-2023 12:18-0500 Blood Pressure Location VERENA OSUNA DO [facility] 12-31-2023 12:18-0500 Blood Pressure Method VERENA OSUNA DO [facility] 12-31-2023 12:18-0500 Diastolic Blood Pressure Non-Invasive 78 mm[Hg] VERENA OSUNA DO [facility] 12-31-2023 12:18-0500 Heart rate 71 /min VERENA OSUNA DO [facility] 12-31-2023 12:18-0500 Respiratory rate 18 /min VERENA OSUNA DO [facility] 12-31-2023 12:18-0500 Systolic Blood Pressure Non-Invasive 125 mm[Hg] VERENA OSUNA DO [facility] 12-31-2023 10:35-0500 Blood Pressure Location VERENA OSUNA DO [facility] 12-31-2023 10:35-0500 Blood Pressure Method VERENA OSUNA DO [facility] 12-31-2023 10:35-0500 Body temperature 97.88 [degF] VERENA OSUNA DO [facility] 12-31-2023 10:35-0500 Body weight 95.5 kg VERENA OSUNA DO [facility] 12-31-2023 10:35-0500 Diastolic Blood Pressure Non-Invasive 83 mm[Hg] VERENA OSUNA DO [facility] 12-31-2023 10:35-0500 Heart rate 82 /min VERENA OSUNA DO [facility] 12-31-2023 10:35-0500 Respiratory rate 18 /min VERENA OSUNA DO [facility] 12-31-2023 10:35-0500 Systolic Blood Pressure Non-Invasive 137 mm[Hg] VERENA OSUNA DO [facility] 12-20-2023 21:13-0500 Diastolic Blood Pressure Non-Invasive 72 mm[Hg] EUGENE BROOKS MD [facility] 12-20-2023 21:13-0500 Heart rate 122 /min EUGENE BROOKS MD [facility] 12-20-2023 21:13-0500 Reason For Taking VItal Signs EUGENE BROOKS MD [facility] 12-20-2023 21:13-0500 Respiratory rate 20 /min EUGENE BROOKS MD [facility] 12-20-2023 21:13-0500 Systolic Blood Pressure Non-Invasive 123 mm[Hg] EUGENE BROOKS MD [facility] 12-20-2023 20:26-0500 Body temperature 99.68 [degF] EUGENE BROOKS MD [facility] 12-20-2023 20:26-0500 Diastolic Blood Pressure Non-Invasive 72 mm[Hg] EUGENE BROOKS MD [facility] 12-20-2023 20:26-0500 Heart rate 123 /min EUGENE BROOKS MD [facility] 12-20-2023 20:26-0500 Respiratory rate 16 /min EUGENE BROOKS MD [facility] 12-20-2023 20:26-0500 Systolic Blood Pressure Non-Invasive 105 mm[Hg] EUGENE BROOKS MD [facility] 12-20-2023 19:57-0500 Diastolic Blood Pressure Non-Invasive 65 mm[Hg] EUGENE BROOKS MD [facility] 12-20-2023 19:57-0500 Systolic Blood Pressure Non-Invasive 106 mm[Hg] EUGENE BROOKS MD [facility] 12-20-2023 19:21-0500 Heart rate 111 /min EUGENE BROOKS MD [facility] 12-20-2023 19:21-0500 Mean blood pressure 65 mm[Hg] EUGENE BROOKS MD [facility] 12-20-2023 19:21-0500 Reason For Taking VItal Signs EUGENE BROOKS MD [facility] 12-20-2023 19:21-0500 Respiratory rate 20 /min EUGENE BROOKS MD [facility] 12-20-2023 17:17-0500 Reason For Taking VItal Signs EUGENE BROOKS MD [facility] 12-20-2023 16:41-0500 Blood Pressure Location EUGENE BROOKS MD [facility] 12-20-2023 16:41-0500 Body temperature 100.76 [degF] EUGENE BROOKS MD [facility] 09-09-2023 09:11-0400 Body temperature 97.81 [degF] Serge Alfaro APRN.[employer]GER [employer] Work Phone: [facility] 09-09-2023 09:11-0400 Body weight 94.8 kg Serge Alfaro APRN.[employer] Work Phone: [facility] 09-09-2023 09:11-0400 Diastolic blood pressure 70 mm[Hg] [facility] CHIEF VENDOR QUALITY.[employer]GER [employer] Work Phone: [facility] 09-09-2023 09:11-0400 Heart rate 126 /min [facility] CHIEF VENDOR QUALITY.[employer]GER [employer] Work Phone: [facility] 09-09-2023 09:11-0400 Respiratory rate 18 /min [facility] CHIEF VENDOR QUALITY.[employer] Work Phone: [facility] 09-09-2023 09:11-0400 SaO2% (BldA) [Mass fraction] 99 % [facility] CHIEF VENDOR QUALITY.[employer]GER [employer] Work Phone: [facility] 09-09-2023 09:11-0400 Systolic blood pressure 122 mm[Hg] [facility] CHIEF VENDOR QUALITY.[employer] Work Phone: [facility] 06-05-2023 23:29-0400 Body height 172.7 cm KINJAL BRICEÑO MD [facility] 06-05-2023 23:29-0400 Body temperature 98.42 [degF] KINJAL BRICEÑO MD [facility] 06-05-2023 23:29-0400 Body weight 90.9 kg KINJAL BRICEÑO MD [facility] 06-05-2023 23:29-0400 Diastolic Blood Pressure Non-Invasive 80 1 KINJAL BRICEÑO MD [facility] 06-05-2023 23:29-0400 Heart rate 81 /min KINJAL BRICEÑO MD [facility] 06-05-2023 23:29-0400 Respiratory rate 16 /min KINJAL BRICEÑO MD [facility] 06-05-2023 23:29-0400 Systolic Blood Pressure Non-Invasive 117 1 KINJAL BRICEÑO MD [facility] 12-21-2022 13:46-0500 Body temperature 97.8 [degF] Dr. Yovanny Navarro Work Phone: [facility] 12-21-2022 13:46-0500 Diastolic blood pressure 56 mm[Hg] Dr. Yovanny Navarro Work Phone: [facility] 12-21-2022 13:46-0500 Heart rate 87 /min Dr. Yovanny Navarro Work Phone: [facility] 12-21-2022 13:46-0500 Respiratory rate 16 /min Dr. Yovanny Navarro Work Phone: [facility] 12-21-2022 13:46-0500 Systolic blood pressure 108 mm[Hg] Dr. Yovanny Navarro Work Phone: [facility] 12-20-2022 05:34-0500 SaO2% (BldA) [Mass fraction] 96 % Dr. Yovanny Navarro Work Phone: [facility] 12-19-2022 21:00-0500 Body height 170.[address] Yovanny Navarro Work Phone: [facility] 12-19-2022 21:00-0500 Body mass index (BMI) [Ratio] 31.9 kg/m2 Dr. Yovanny Navarro Work Phone: [facility] 12-19-2022 21:00-0500 Body weight 92.[address] Yovanny Navarro Work Phone: [facility] 12-18-2022 09:03-0500 Body mass index (BMI) [Ratio] 32 kg/m2 Dr. Yovanny Navarro Work Phone: [facility] 12-18-2022 09:03-0500 Body weight 92.[address] Yovanny Navarro Work Phone: [facility] 12-18-2022 09:03-0500 Diastolic blood pressure 69 mm[Hg] Dr. Yovanny Navarro Work Phone: [facility] 12-18-2022 09:03-0500 Systolic blood pressure 103 mm[Hg] Dr. Yovanny Navarro Work Phone: [facility] 12-07-2022 20:12-0500 Body height 170.[address] Yovanny Navarro Work Phone: [facility] 12-07-2022 20:12-0500 Body mass index (BMI) [Ratio] 31.6 kg/m2 Dr. Yovanny Navarro Work Phone: [facility] 12-07-2022 20:12-0500 Body weight 91.[address] Yovanny Navarro Work Phone: [facility] 12-07-2022 08:27-0500 Body temperature 97.7 [degF] Dr. Yovanny Navarro Work Phone: [facility] 12-07-2022 08:27-0500 Diastolic blood pressure 57 mm[Hg] Dr. Yovanny Navarro Work Phone: [facility] 12-07-2022 08:27-0500 Heart rate 87 /min Dr. Yovanny Navarro Work Phone: [facility] 12-07-2022 08:27-0500 SaO2% (BldA) [Mass fraction] 97 % Dr. Yovanny Navarro Work Phone: [facility] 12-07-2022 08:27-0500 Systolic blood pressure 102 mm[Hg] Dr. Yovanny Navarro Work Phone: [facility] 12-06-2022 20:50-0500 Body height 170.[address] Yovanny Navarro Work Phone: [facility] Work Phone: 12-06-2022 20:50-0500 Body mass index (BMI) [Ratio] 31.5 kg/m2 Dr. Yovanny Navarro Work Phone: [facility] 12-06-2022 20:50-0500 Body weight 91.[address] Yovanny Navarro Work Phone: [facility] 11-29-2022 10:03-0500 Body mass index (BMI) [Ratio] 31.4 kg/m2 Dr. Yovanny Navarro Work Phone: [facility] 11-29-2022 10:03-0500 Body weight 91.[address] Yovanny Navarro Work Phone: [facility] 11-29-2022 10:03-0500 Diastolic blood pressure 77 mm[Hg] Dr. Yovanny Navarro Work Phone: [facility] 11-29-2022 10:03-0500 Systolic blood pressure 109 mm[Hg] Dr. Yovanny Navarro Work Phone: [facility] 11-14-2022 09:05-0500 Body height 170.[address] Yovanny Navarro Work Phone: [facility] Work Phone: 11-14-2022 08:57-0500 Body mass index (BMI) [Ratio] 30.8 kg/m2 Dr. Yovanny Navarro Work Phone: [facility] 11-14-2022 08:57-0500 Body weight 89.[address] Yovanny Navarro Work Phone: [facility] 11-14-2022 08:57-0500 Diastolic blood pressure 65 mm[Hg] Dr. Yovanny Navarro Work Phone: [facility] 11-14-2022 08:57-0500 Systolic blood pressure 100 mm[Hg] Dr. Yovanny Navarro Work Phone: [facility] 10-31-2022 10:53-0500 Body mass index (BMI) [Ratio] 30.4 kg/m2 Dr. Yovanny Navarro Work Phone: [facility] [facility] 10-31-2022 10:53-0500 Body weight 88.[address] Yovanny Navarro Work Phone: [facility] 10-31-2022 10:53-0500 Diastolic blood pressure 72 mm[Hg] Dr. Yovanny Navarro Work Phone: [facility] 10-31-2022 10:53-0500 Systolic blood pressure 116 mm[Hg] Dr. Yovanny Navarro Work Phone: [facility] 10-22-2022 17:55-0500 Body temperature 98.71 [degF] Rita Middleton CHIEF VENDOR QUALITY.BATTERY CHARGER CONVEYOR LINE Work Phone: [facility] 10-22-2022 17:55-0500 Body weight 87.54 kg Rita Middleton CHIEF VENDOR QUALITY.BATTERY CHARGER CONVE[employer]OR LINE Work Phone: [facility] 10-22-2022 17:55-0500 Diastolic blood pressure 78 mm[Hg] Rita Middleton CHIEF VENDOR QUALITY.BATTERY CHARGER CONVE[employer] LINE Work Phone: [facility] 10-22-2022 17:55-0500 Heart rate 105 /min Rita Middleton CHIEF VENDOR QUALITY.BATTERY CHARGER CON[employer]OR LINE Work Phone: [facility] 10-22-2022 17:55-0500 Respiratory rate 16 /min Rita Middleton CHIEF VENDOR QUALITY.BATTERY CHARGER CONVE[employer]OR LINE Work Phone: [facility] 10-22-2022 17:55-0500 SaO2% (BldA) [Mass fraction] 99 % Rita Middleton CHIEF VENDOR QUALITY.BATTERY CHARGER CON[employer]OR LINE Work Phone: [facility] 10-22-2022 17:55-0500 Systolic blood pressure 110 mm[Hg] Rita Middleton CHIEF VENDOR QUALITY.BATTERY CHARGER CON[employer]OR LINE Work Phone: [facility] 10-11-2022 11:21-0500 Body mass index (BMI) [Ratio] 31 kg/m2 Dr. Yovanny Navarro Work Phone: [facility] 10-11-2022 11:21-0500 Body weight 89.[address] Yovanny aNvarro Work Phone: [facility] 10-11-2022 11:21-0500 Diastolic blood pressure 78 mm[Hg] Dr. Yovanny Navarro Work Phone: [facility] 10-11-2022 11:21-0500 Systolic blood pressure 112 mm[Hg] Dr. Yovanny Navarro Work Phone: [facility] 09-13-2022 09:06-0400 Body mass index (BMI) [Ratio] 30.6 kg/m2 Dr. Yovanny Navarro Work Phone: [facility] 09-13-2022 09:06-0400 Body weight 88.[address] Yovanny Navarro Work Phone: [facility] 09-13-2022 09:06-0400 Diastolic blood pressure 72 mm[Hg] Dr. Yovanny Navarro Work Phone: [facility] 09-13-2022 09:06-0400 Systolic blood pressure 108 mm[Hg] Dr. Yovanny Navarro Work Phone: [facility] 08-31-2022 00:36-0400 Diastolic blood pressure 64 mm[Hg] Dr. Yovanny Navarro Work Phone: [facility] 08-31-2022 00:36-0400 Heart rate 74 /min Dr. Yovanny Navarro Work Phone: [facility] 08-31-2022 00:36-0400 Respiratory rate 15 /min Dr. Yovanny Navarro Work Phone: [facility] 08-31-2022 00:36-0400 SaO2% (BldA) [Mass fraction] 95 % Dr. Yovanny Navarro Work Phone: [facility] 08-31-2022 00:36-0400 Systolic blood pressure 101 mm[Hg] Dr. Yovanny Navarro Work Phone: [facility] 08-30-2022 21:29-0400 Body height 170.[address] Yovanny Navarro Work Phone: [facility] Work Phone: 08-30-2022 21:29-0400 Body mass index (BMI) [Ratio] 29.7 kg/m2 Dr. Yovanny Navarro Work Phone: [facility] 08-30-2022 21:29-0400 Body temperature 96.4 [degF] Dr. Yovanny Navarro Work Phone: [facility] 08-30-2022 21:29-0400 Body weight 86.[address] Yovanny Navaror Work Phone: [facility] 08-22-2022 11:29-0400 Body height 170.[address] Yovanny Navarro Work Phone: [facility] Work Phone: 08-22-2022 11:29-0400 Body mass index (BMI) [Ratio] 29.3 kg/m2 Dr. Yovanny Navarro Work Phone: [facility] 08-22-2022 11:29-0400 Body weight 84.[address] Yovanny Navarro Work Phone: [facility] 08-22-2022 11:29-0400 Diastolic blood pressure 70 mm[Hg] Dr. Yovanny Navarro Work Phone: [facility] 08-22-2022 11:29-0400 Systolic blood pressure 110 mm[Hg] Dr. Yovanny Navarro Work Phone: [facility] 08-13-2022 09:33-0400 Body height 170.[address] Yovanny Navarro Work Phone: [facility] Work Phone: 08-13-2022 09:29-0400 Body mass index (BMI) [Ratio] 29.2 kg/m2 Dr. Yovanny Navarro Work Phone: [facility] Work Phone: 08-13-2022 09:29-0400 Body weight 84.[address] Yovanny Navarro Work Phone: [facility] Work Phone: 08-13-2022 09:29-0400 Diastolic blood pressure 76 mm[Hg] Dr. Yovanny Navarro Work Phone: [facility] Work Phone: 08-13-2022 09:29-0400 Systolic blood pressure 116 mm[Hg] Dr. Yovanny Navarro Work Phone: [facility] Work Phone: 07-17-2022 10:55-0400 Body height 170.[address] Yovanny Navarro Work Phone: [facility] Work Phone: 07-17-2022 10:55-0400 Body mass index (BMI) [Ratio] 28.7 kg/m2 Dr. Yovanny Navarro Work Phone: [facility] Work Phone: 07-17-2022 10:55-0400 Body weight 83.[address] Yovanny Navarro Work Phone: [facility] Work Phone: 07-17-2022 10:55-0400 Diastolic blood pressure 70 mm[Hg] Dr. Yovanny Navarro Work Phone: [facility] Work Phone: 07-17-2022 10:55-0400 Systolic blood pressure 120 mm[Hg] Dr. Yovanny Navarro Work Phone: [facility] Work Phone: 06-17-2022 13:28-0400 Body mass index (BMI) [Ratio] 29.1 kg/m2 Dr. Yovanny Navarro Work Phone: [facility] Work Phone: 06-17-2022 13:28-0400 Body weight 84.[address] Yovanny Navarro Work Phone: [facility] Work Phone: 06-17-2022 13:28-0400 Diastolic blood pressure 80 mm[Hg] Dr. Yovanny Navarro Work Phone: [facility] Work Phone: 06-17-2022 13:28-0400 Systolic blood pressure 100 mm[Hg] Dr. Yovanny Navarro Work Phone: [facility] Work Phone: 06-06-2022 21:11-0400 Body temperature 98.9 [degF] [facility] Work Phone: 06-06-2022 21:11-0400 Diastolic blood pressure 78 mm[Hg] [facility] Work Phone: 06-06-2022 21:11-0400 Heart rate 78 /min [facility] Work Phone: 06-06-2022 21:11-0400 Respiratory rate 14 /min [facility] Work Phone: 06-06-2022 21:11-0400 SaO2% (BldA) [Mass fraction] 98 % [facility] Work Phone: 06-06-2022 21:11-0400 Systolic blood pressure 126 mm[Hg] [facility] Work Phone: 06-06-2022 18:16-0400 Body height 170.18 cm [facility] Work Phone: 06-06-2022 18:16-0400 Body mass index (BMI) [Ratio] 28.1 kg/m2 [facility] Work Phone: 06-06-2022 18:16-0400 Body weight 81.64 kg [facility] Work Phone: 11-19-2021 20:09-0500 Body temperature 98.24 [degF] DR RAMONITA BENSON MD [facility] 11-19-2021 20:09-0500 Diastolic blood pressure 87 mm[Hg] DR RAMONITA BENSON MD [facility] 12-27-2021 20:09-0500 Heart rate 78 /min DR RAMONITA BENSON MD [facility] 11-19-2021 20:09-0500 Respiratory rate 18 /min DR RAMONITA BENSON MD [facility] 11-19-2021 20:09-0500 Systolic blood pressure 135 mm[Hg] DR RAMONITA BENSON MD [facility] 11-19-2021 17:38-0500 Body temperature 97.34 [degF] THAIS FOWLER MD [facility] 11-19-2021 17:38-0500 Diastolic blood pressure 76 mm[Hg] THAIS FOWLER MD [facility] 11-19-2021 17:38-0500 Heart rate 75 /min THAIS FOWLER MD [facility] 11-19-2021 17:38-0500 Mean blood pressure 92 mm[Hg] THAIS FOWLER MD [facility] 11-19-2021 17:38-0500 Reason For Taking VItal Signs THAIS FOWLER MD [facility] 11-19-2021 17:38-0500 Respiratory rate 20 /min THAIS FOWLER MD [facility] 11-19-2021 17:38-0500 Systolic blood pressure 123 mm[Hg] THAIS FOWLER MD [facility] 11-18-2021 18:01-0500 Diastolic blood pressure 76 mm[Hg] CORNEL FROMMELT DO [facility] 11-18-2021 18:01-0500 Heart rate 65 /min CORNEL FROMMELT DO [facility] 11-18-2021 18:01-0500 Respiratory rate 20 /min CORNEL FROMMELT DO [facility] 11-18-2021 18:01-0500 Systolic blood pressure 116 mm[Hg] CORNEL FROMMELT DO [facility] 11-18-2021 15:21-0500 Body temperature 97.88 [degF] CORNEL FROMMELT DO [facility] 11-18-2021 15:21-0500 Diastolic blood pressure 87 mm[Hg] CORNEL FROMMELT DO [facility] 11-18-2021 15:21-0500 Heart rate 83 /min CORNEL FROMMELT DO [facility] 11-18-2021 15:21-0500 Respiratory rate 20 /min CORNEL FROMMELT DO [facility] 11-18-2021 15:21-0500 Systolic blood pressure 133 mm[Hg] CORNEL FROMMELT DO [facility] Encounters Encounter Date Encounter Type Care Provider Facility Start: 05-12-2025 End: 05-12-2025 Patient encounter procedure Lul Wong APRN.CNP Work Phone: [facility] Comment on above: Strep throat (Primar y Dx); Sore throat Start: 05-12-2025 End: 05-12-2025 ambulatory [facility] Facility:[facility] Start: 03-22-2025 End: 03-26-2025 ambulatory DAI APINTING CHIEF VENDOR QUALITY-BATTERY CHARGER [employer]OR LINE Facility:[facility] Start: 03-22-2025 End: 03-26-2025 Outreach Lab AL REGALADO CHIEF VENDOR QUALITY-BATTERY CHARGER CONVEYOR LINE [facility] Start: 02-22-2025 End: 02-22-2025 ambulatory [facility] Facility:[facility] Start: 02-22-2025 End: 02-22-2025 Office outpatient new 30 minutes Mariposa Najera PA-C Work Phone: [facility] Comment on above: Sore throat (Primary Dx); Acute non-recurrent streptococcal tonsillitis Start: 02-08-2025 End: 02-08-2025 ambulatory DAI PAINTING CHIEF VENDOR QUALITY-BATTERY CHARGER [employer] LINE Facility:[facility] Start: 02-06-2025 End: 02-07-2025 Evaluation and management of inpatient THAIS CHASE DO Facility:[facility] Start: 01-20-2025 End: 01-20-2025 ambulatory Dai Painting NP Facility:[facility] Start: 12-30-2024 End: 12-30-2024 ambulatory ADAL PETER DO Facility:[facility] Start: 12-30-2024 End: 12-30-2024 Patient encounter procedure ADAL PETER DO [facility] Start: 12-12-2024 ambulatory Dai Painting NP Fa cility:[facility] Start: 12-12-2024 End: 12-12-2024 ambulatory Dai Painting NP Facility:[facility] Start: 12-12-2024 End: 12-12-2024 ambulatory Dai Painting NP Facility:[facility] Start: 12-05-2024 ambulatory Dai Painting NP Fa cility:[facility] Start: 12-05-2024 End: 12-07-2024 Evaluation and management of inpatient Dai Painting FILM WAXER Facility:[facility] Start: 12-03-2024 ambulatory Dai Painting FILM WAXER Fa cility:[facility] Start: 12-03-2024 End: 12-03-2024 ambulatory Dai Painting FILM WAXER Facility:[facility] Start: 11-25-2024 End: 11-25-2024 ambulatory Dai Painting FILM WAXER Facility:[facility] Start: 11-25-2024 End: 11-25-2024 ambulatory Dai Painting FILM WAXER Facility:[facility] Start: 11-12-2024 End: 11-12-2024 ambulatory Dai Painting FILM WAXER Facility:[facility] Start: 10-28-2024 End: 10-28-2024 ambulatory Dai Painting FILM WAXER Facility:[facility] Start: 10-20-2024 ambulatory Rosalba Cortési lity:[facility] Start: 10-16-2024 End: 10-16-2024 ambulatory Rosalba Edwards Facility:[facility] Start: 10-15-2024 End: 10-15-2024 ambulatory Rosalba Edwards Facility:[facility] Start: 10-14-2024 End: 10-14-2024 ambulatory Dai Painting FILM WAXER Facility:[facility] Start: 09-28-2024 End: 09-28-2024 ambulatory Dai Painting FILM WAXER Facility:[facility] Start: 09-14-2024 End: 09-15-2024 Emergency department patient visit Juana Kaur Facility:[facility] Start: 09-02-2024 End: 09-03-[facility] Start: 08-22-2024 ambulatory Cherelle Cid Facilit y:[facility] Start: 08-22-2024 End: 08-22-2024 ambulatory Cherelle Cid Facility:[facility] Start: 08-17-2024 End: 08-17-2024 ambulatory ROSALBA Mandel [facility] Start: 08-05-2024 End: 08-05-2024 ambulatory ROSALBA E [facility] Start: 07-23-2024 End: 07-23-2024 ambulatory ROSALBA EDWARDS [facility] Start: 07-06-2024 End: 07-06-2024 ambulatory Dai Painting NP Facility:[facility] Start: 06-29-2024 End: 06-29-2024 ambulatory HARJIT Navarro [place] [facility] Start: 06-26-2024 End: 06-26-2024 Emergency department patient visit Rodrick Freire Facility:[facility] Start: 06-14-2024 End: 06-14-2024 Emergency department patient visit DR SHAVONNE REILLY MD [facility] Start: 06-07-2024 End: 06-07-2024 ambulatory Dai Painting NP Facility:[facility] Start: 06-07-2024 End: 06-07-2024 ambulatory Mahesh Bianchi Facility:[facility] Start: 05-27-2024 End: 05-27-2024 Emergency department patient visit DR RAMONITA BENSON MD [facility] Start: 02-21-2024 End: 02-21-2024 Emergency department patient visit SUBHA CHAMBERS [facility] Start: 02-19-2024 End: 02-19-2024 ambulatory MARIPOSA BOWER MD Facility:[facility] Start: 02-19-2024 End: 02-19-2024 SAME DAY STAY MARIPOSA BOWER MD [facility] Start: 02-05-2024 End: 02-05-2024 Admission to establishment MARIPOSA BOWER MD [facility] Start: 02-05-2024 End: 02-05-2024 ambulatory MARIPOSA BOWER MD Facility:[facility] Start: 01-23-2024 End: 01-23-2024 ambulatory PIEDAD BANG CHIEF VENDOR QUALITY-B[employer]TER[employer]GER [employer] Facility:[facility] Start: 01-23-2024 End: 01-23-2024 Patient encounter procedure PIEDAD BANG CHIEF VENDOR QUALITY-BATTERY CHARGER [employer] [facility] Start: 01-13-2024 ambulatory PIEDAD BANG CHIEF VENDOR QUALITY-BATTER[employer]GER [employer] Facility:[facility] Start: 12-31-2023 End: 12-31-2023 Emergency department patient visit VERENA Waylon ENRRIQUE VILLALOBOS [facility] Start: 12-25-2023 End: 12-29-2023 ambulatory MATT BUTLERSEY CHIEF VENDOR QUALITY-BATTERY CHARGER [employer] Facility:[facility] Start: 12-20-2023 End: 12-20-2023 Emergency department patient visit EUGENE BROOKS MD [facility] Start: 10-22-2023 End: 10-23-2023 Office outpatient visit 25 minutes Milka Srinivasan MD Work Phone: Rheumatology Comment on above: Chronic fatigue (Brianda rosy Dx); Positive CASSANDRA (antinuclear antibody) Start: 09-11-2023 End: 09-15-2023 ambulatory DAI PAINTING CHIEF VENDOR QUALITY-BATTER[employer]GER [employer] Facility:[facility] Start: 09-11-2023 End: 09-15-2023 Outreach Lab DAI PAINTING CHIEF VENDOR QUALITY-BATTERY CHARGER [employer] LINE [facility] Start: 09-09-2023 End: 09-09-2023 Office outpatient visit 15 minutes Serge Alfaro CHIEF VENDOR QUALITY.BATTERY CHARGER CONVEYOR LINE Work Phone: [facility] Comment on above: Tachycardia (Primary Dx); Right upper quadrant pain Start: 07-09-2023 End: 07-09-2023 ambulatory DAI PAINTING CHIEF VENDOR QUALITY-BATTER[employer]GER [employer] Facility:[facility] Start: 07-09-2023 End: 07-09-2023 Patient encounter procedure DAI PAINTING CHIEF VENDOR QUALITY-BATTERY CHARGER [employer] [facility] Start: 06-05-2023 End: 06-06-2023 Emergency department patient visit KINJAL BRICEÑO MD [facility] Start: 04-23-2023 End: 04-23-2023 Patient encounter procedure DAI Navarro GARIMA CHIEF VENDOR QUALITY-BATTERY CHARGER [employer] LINE [facility] Start: 12-20-2022 Non-patient / Non-visit Dr. Aaron Navarro Work Phone: [facility] Start: 12-19-2022 End: 12-21-2022 Evaluation and management of inpatient Dr. Yovanny Navarro Work Phone: [facility] Start: 12-18-2022 End: 12-18-[address] Yovanny Navarro Work Phone: [facility] Start: 12-07-2022 End: 12-07-[address] Yovanny Navarro Work Phone: [facility] Work Phone: Start: 12-07-2022 End: 12-07-[address] Yovanny Navarro Work Phone: [facility], Outpatients Start: 12-07-2022 Non-patient / Non-visit Dr. Aaron Navarro Work Phone: [facility] Start: 12-06-2022 Non-patient / Non-visit Dr. Aaron Navarro Work Phone: [facility] Start: 12-06-2022 End: 12-07-[address] Yovanny Navarro Work Phone: [facility] Work Phone: Start: 12-06-2022 End: 12-07-[address] Yovanny Navarro Work Phone: [facility], Outpatients Start: 11-29-2022 End: 11-29-[address] Yovanny Navarro Work Phone: [facility] Start: 11-26-2022 End: 11-26-[address] Yovanny Navarro Work Phone: [facility] Work Phone: Start: 11-26-2022 End: 11-26-[address] Yovanny Navarro Work Phone: [facility] Start: 11-14-2022 End: 11-14-[address] Yovanny Navarro Work Phone: [facility] Start: 11-05-2022 End: 11-05-[address] Yovanny Navarro Work Phone: [facility] Work Phone: Start: 11-05-2022 End: 11-05-[address] [facility] Start: 10-31-2022 End: 10-31-[address] Yovanny Navarro Work Phone: [facility] Work Phone: Start: 10-31-2022 End: 10-31-[address] [facility] Navarro [facility] Start: 10-31-2022 End: 10-31-[address] Yovanny Navarro Work Phone: [facility] Start: 10-22-2022 End: 10-22-2022 Patient encounter procedure Rita Middleton APRN.CNP Work Phone: [facility] Comment on above: URI, acute (Primary Dx) Start: 10-11-2022 End: 10-11-[address] Yovanny Navarro Work Phone: [facility] Start: 09-13-2022 End: 09-13-[address] Yovanny Navarro Work Phone: [facility] Start: 08-30-2022 End: 08-31-2022 Emergency department patient visit Dr. Yovanny Navarro Work Phone: [facility] Start: 08-22-2022 End: 08-22-[address] Yovanny Navarro Work Phone: [facility] Work Phone: Start: 08-22-2022 End: 08-22-[address] Yovanny Navarro Work Phone: [facility] Start: 08-22-2022 End: 08-22-[address] Yovanny Navarro Work Phone: [facility] Work Phone: Start: 08-22-2022 End: 08-22-[address] Yovanny Navarro Work Phone: [facility]-Laboratory, Specimen Start: 08-22-2022 End: 08-22-[address] Yovanny Navarro Work Phone: [facility] Start: 08-19-2022 End: 08-19-[address] Yovanny Navraro Work Phone: [facility] Work Phone: Start: 08-19-2022 End: 08-19-[address] Yovanny Navarro Work Phone: [facility] Start: 08-13-2022 End: 08-13-[address] Yovanny Navarro Work Phone: [facility] Start: 08-07-2022 End: 08-07-[address] Yovanny Navarro Work Phone: [facility] Work Phone: Start: 08-07-2022 End: 08-07-[address] Yovanny Navarro Work Phone: [facility] Start: 07-17-2022 End: 07-17-[address] Yovanny Navarro Work Phone: [facility] Start: 06-24-2022 End: 06-24-[address] Yovanny Navarro Work Phone: [facility] Start: 06-18-2022 End: 06-18-[address] Yovanny Navarro Work Phone: [facility]Laboratory, Specimen Start: 06-17-2022 End: 06-17-[address] Yovanny Navarro Work Phone: [facility] Start: 06-06-2022 End: 06-06-2022 Emergency department patient visit [facility] Start: 11-19-2021 End: 11-19-2021 Emergency department patient visit DR RAMONITA BENSON MD [facility] Start: 11-19-2021 End: 11-19-2021 Emergency department patient visit THAIS FOWLER MD [facility] Start: 11-18-2021 End: 11-18-2021 Emergency department patient visit CORNEL KRUEGER DO [facility] Start: 01-17-2018 End: 01-18-2018 Emergency department patient visit CRUZ LOVING Facility:[facility] Start: 11-21-2017 End: 11-21-2017 Emergency department patient visit KAVITA TORRES Facility:[facility] Start: 07-16-2017 Ambulatory Adithya Zavala [facility] Start: 07-09-2017 Amb[facility] Start: 05-30-2017 End: 05-30-2017 Emergency department patient visit DELANO DALY Facility:[facility] Procedures Date Procedure Procedure Detail Performing Clinician Start: 05-12-2025 Iadna streptococcus group a amplified probe tq Lul Wong CHIEF VENDOR QUALITY.BATTERY CHARGER [employer] Work Phone: Start: 02-22-2025 STREP A MOLECULAR (POC) Lul Wong CHIEF VENDOR QUALITY.BATTERY CHARGER [employer] Work Phone: Start: 02-19-[address] KY BENSON MD Comment on above: ROBOTIC ASSISTED CHO LECYSTECTOMY Start: 11-26-2022 Ultrasound scan for growth Dr. Yovanny Navarro Work Phone: Start: 08-22-[address] Aaron Navarro Work Phone: Start: 08-19-[address] ic ultrasonography Dr. Yovanny Navarro Work Phone: Start: 08-07-2022 Ultrasonography for antepartum monitoring of fetus Dr. Yovanny Navarro Work Phone: Start: 06-06-2022 US scan of gallbladder Start: 05-11-2018 Antibody screen Comment on above: Performed By: #### R APTR #### [place] [id number] Start: 04-30-2018 Antibody screen Comment on above: Performed By: #### T &S #### [place] [id number] Group B Streptococcu s Culture Dr. Yovanny Navarro Work Phone: History of cholecystectomy History of cholecystectomy AL REGALADO CHIEF VENDOR QUALITY-BATTERY CHARGER [employer] Laser assisted in si tu keratomileusis MARIPOSA BOWER MD Tonsillectomy MARIPOSA BOWER MD Urine culture Dr. Yovanny escobedo Work Phone: Urine culture Dr. Yovanny escobedo Work Phone: Urine culture Dr. Yovanny escobedo Work Phone: Plan of Treatment Date Care Activity Detail Author Start: 10-14-2034 Urine microalbumin profile DTa P,Tdap,Td Vaccine (6 - Td or Tdap) [facility] Start: 10-31-2032 Urine microalbumin profile DTa P,Tdap,Td Vaccine (5 - Td or Tdap) [facility] Start: 11-04-2024 Urine microalbumin profile DTA P,TDAP,TD (2 - Td or Tdap) [facility] Start: 07-25-2024 Covid-19 Vaccine ( season) Covid-19 Vaccine ( season) [facility] Start: 07-25-2023 Covid-19 Vaccine ( season) Covid-19 Vaccine ( season) [facility] Start: 07-25-2023 Influenza vaccination Influenza Vacc ine (#1) [facility] Start: 12-21-2022 Patient discharge [facility] Start: 12-20-2022 Administration of medication [facility] Start: 12-20-2022 Application of ice c ollar, cap or bag [facility] Start: 12-20-2022 Catheterization of vein [facility] Start: 12-20-2022 Introduction of urin gaye catheter [facility] Start: 12-20-2022 Measuring intake and output [facility] Start: 12-20-2022 Notification of physician [facility] Start: 12-20-2022 Procedure discontinued [facility] Start: 12-20-2022 Provision of activit y privileges [facility] Start: 12-20-2022 Vital signs measurements [facility] Start: 12-20-2022 End: 12-20-2022 [facility] Start: 12-19-2022 Admission procedure [facility] Start: 12-07-2022 Patient discharge [facility] Start: 12-06-2022 Bedrest with jeremiah ren privileges [facility] Start: 12-06-2022 Nonstress test [facility] Start: 12-06-2022 External monit or surveillance [facility] Start: 12-06-2022 Medication education [facility] [facility] Start: 12-06-2022 Obstetric monitoring [facility] Start: 12-06-2022 Vital signs measurements [facility] Start: 12-06-2022 End: 12-06-2022 [facility] Start: 12-06-2022 Iv infusion therapy prophylaxis/dx ea hour THER/PROPH/DIAG IV INF [facility] Start: 12-06-2022 Iv infusion therapy/prophylaxis /dx 1st to 1 hr THER/PROPH/DIAG IV INF INIT [facility] Start: 12-06-2022 Therapeutic injectio n iv push each new drug TX/PRO/DX INJ NEW DRUG [facility] Start: 10-22-2022 End: 11-05-2022 Influenza virus A and B RNA and SARS-CoV-2 (COVID-19) N gene panel - Respiratory specimen by KATEY with probe detection COVID WITH FLUA+B, ROUTINE Microbiology Routine URI, acute Expected: 10/22/2022, Expires: 11/05/2022 [facility] Work Phone: Comment on above: Expected: 10/22/2022 , Expires: 11/05/2022 Start: 09-13-2022 Patient referral [facility] Work Phone: Start: 08-22-2022 Culture bacterial quanttative colony count urine URINE CULTURE/COLONY COUNT [facility] Start: 07-25-2022 Influenza vaccination INFLUENZA (#1) [facility] Start: 06-17-2022 Chlamydia deoxyribon ucleic acid detection [facility] Work Phone: Start: 06-06-2022 Enteric precautions [facility] Work Phone: Start: 06-06-2022 [facility] Work Phone: Start: 2019 PAP TESTING PAP TESTING [facility] Start: 2019 Screening for malign ant neoplasm of cervix [facility] Start: 2017 Hepatitis B Vaccine (1 of 3 - 19+ 3-dose series) Hepatitis B Vaccine (1 of 3 - 19+ 3-dose series) [facility] Start: 2016 Anxiety Screening Anxiety Screening [facility] Start: 2013 HPV Vaccine (1 - 3-d ose series) HPV Vaccine (1 - 3-dose series) [facility] Start: 2012 PEDS TO ADULT TRANSI TION ANNUAL ASSESSMENT PEDS TO ADULT TRANSITION ANNUAL ASSESSMENT [facility] Start: 2010 PEDS TO ADULT TRANSI TION INITIAL DISCUSSION PEDS TO ADULT TRANSITION INITIAL DISCUSSION [facility] Start: 2009 HPV VACCINE (1 - 2-d ose series) HPV VACCINE (1 - 2-dose series) [facility] Start: 2008 MENINGOCOCCAL B: Con performance test architect based on risk (1 of 2 - Risk Bexsero 2-dose series) MENINGOCOCCAL B: Consider based on risk (1 of 2 - Risk Bexsero 2-dose series) [facility] Start: 2007 HPV Vaccine (1 - 2-d ose series) HPV Vaccine (1 - 2-dose series) [facility] Start: 1998 COVID-19 VACCINE (#1) COVID-19 VACCI NE (#1) [facility] Start: 1998 HEPATITIS B (1 of 3 - 3-dose series) HEPATITIS B (1 of 3 - 3-dose series) [facility] Start: 1998 Hepatitis B Vaccine (1 of 3 - 3-dose series) Hepatitis B Vaccine (1 of 3 - 3-dose series) [facility] Bacteria identified in Urine by Culture Urine Culture [facility] Work Phone: Beta-hemolytic Streptococcus culture [facility] Work Phone: CBC W Auto Different ial panel - Blood [facility] Work Phone: Clostridioides diffi cile DNA [Presence] in Unspecified specimen by KATEY with probe detection [facility] Work Phone: Gastrointestinal pat hogens panel - Stool by KATEY with probe detection [facility] Work Phone: Group B Streptococcu s Culture Group B Streptococcus Culture [facility] Work Phone: Hepatitis B surface antigen measurement [facility] Work Phone: Hepatitis C antibody measurement [facility] Work Phone: HIV 1+2 Ab+HIV1 p24 Ag [Presence] in Serum or Plasma by Immunoassay [facility] Work Phone: Lactoferrin [Presenc e] in Stool by Immunoassay [facility] Work Phone: Neisseria gonorrhoea e rRNA [Presence] in Unspecified specimen by KATEY with probe detection [facility] Work Phone: Ova and parasites identified in Unspecified specimen by Light microscopy [facility] Work Phone: Patient Education [facility] Work Phone: Patient referral [facility] Work Phone: PCR test for Chlamyd ia trachomatis [facility] Work Phone: Rubella IgG measurement [facility] Work Phone: Treponema sp Ab [Pre sence] in Serum [facility] Work Phone: Ultrasound scan for growth [facility] Work Phone: Ultrasound scan for growth [facility] Urine culture Urine Culture [facility] Work Phone: [facility] Immunizations Immunization Date Immunization Notes Care Provider Peter cardenas 10-14-2024 tetanus toxoid, reduced diphtheria toxoid, and acellular pertussis vaccine, adsorbed Mariposa Najera PA-C Work Phone: [facility] 09-02-2024 influenza virus vaccine, unspecified formulation Mariposa Najera PA-C Work Phone: [facility] 10-31-2022 tetanus toxoid, reduced diphtheria toxoid, and acellular pertussis vaccine, adsorbed Dr. Yovanny Navarro Work Phone: [facility] 07-25-2021 SARS-CoV-2 (COVID-19 ) Ad26 vaccine, recombinant AL REGALADO CHIEF VENDOR QUALITY-BATTERY CHARGER CONVEYOR LINE [facility] 09-02-2019 Influenza virus vaccine [facility] 09-02-2019 influenza, seasonal, injectable, preservative free Mariposa Najera PA-C Work Phone: [facility] 09-02-2019 influenza virus vaccine, unspecified formulation Serge Dominic CHIEF VENDOR QUALITY.BATTERY CHARGER [employer] Work Phone: [facility] 07-13-2019 diphtheria, tetanus toxoids and acellular pertussis vaccine, unspecified formulation Mariposa Osmany BADILLO Work Phone: [facility] 07-13-2019 tetanus toxoid, reduced diphtheria toxoid, and acellular pertussis vaccine, adsorbed [facility] 11-04-2014 tetanus toxoid, reduced diphtheria toxoid, and acellular pertussis vaccine, adsorbed Rita Middleton CHIEF VENDOR QUALITY.BATTERY CHARGER CONVE[employer]OR LINE Work Phone: [facility] Payers Date Payer Category Payer Self-pay [id number] 2023 Unknown [id number] 2021 Medicaid [id number] 2018 Unknown [id number] 2017 Unknown [id number] 2017 Private Health Insurance [id number] 1998 Unknown [id number] 2.16.8 40.1.529286.3.579.2. 1998 Unknown [id number] 2.16.8 40.1.196160.3.579.2. 1998 Unknown [id number] 2.16.8 40.1.192450.3.579.2.7 1998 Unknown [id number] 2.16.8 40.1.725252.3.579.2.62 1998 Unknown [id number] 2.16.8 40.1.102670.3.579.2.62 1998 Unknown [id number] 2.16.8 40.1.924949.3.579.2. 1998 Unknown [id number] 2.16.8 40.1.907110.3.579.2. 1998 Unknown [id number] 2.16.8 40.1.666380.3.579.2. 1998 Unknown [id number] 2.16.8 40.1.170718.3.579.2. 1998 Unknown [id number] 2.16.8 40.1.459235.3.579.2. 1998 Unknown [id number] 2.16.8 40.1.547779.3.579.2. 1998 Unknown [id number] 2.16.8 40.1.688700.3.579.2. 1998 Unknown [id number] 2.16.8 40.1.788039.3.579.2. 1998 Unknown [id number] 2.16.8 40.1.831846.3.579.2. 1998 Unknown [id number] 2.16. 840.1.478863.3.579.2.47 1998 Unknown [id number] 2.16. 840.1.899796.3.579.2 1998 Unknown [id number] 2.16.8 40.1.701433.3.579.2. 1998 Unknown [id number] 2.16.8 40.1.715655.3.579.2. 1998 Unknown [id number] 2.16.8 40.1.203372.3.579.2. 1998 Unknown [id number] 2.16.8 40.1.891470.3.579.2.627 Private Health Insurance Unknown [id number] Unknown [id number] Unknown [id number] 2.16.8 40.1.302640.3.579.2.462 Unknown [id number] 2.16.8 40.1.145188.3.579.2.462 Unknown [id number] 2.16.8 40.1.155538.3.579.2.462 Unknown [id number] 2.16.8 40.1.128687.3.579.2.462 Unknown [id number] 2.16.8 40.1.642025.3.579.2.462 Unknown [id number] 2.16.8 40.1.673336.3.579.2.462 Unknown [id number] 2.16.8 40.1.128989.3.579.2.462 Unknown [id number] 2.16.8 40.1.765386.3.579.2.462 Unknown [id number] 2.16.8 40.1.033814.3.579.2.462 Unknown [id number] 2.16.8 40.1.203195.3.579.2.462 Unknown [id number] 2.16.8 40.1.182738.3.579.2.462 Unknown [id number] 2.16.8 40.1.055798.3.579.2.462 Unknown [id number] 2.16.8 40.1.551929.3.579.2.462 Unknown [id number] 2.16.8 40.1.166144.3.579.2.462 Unknown [id number] 2.16.8 40.1.389161.3.579.2.462 Unknown [id number] 2.16.8 40.1.299188.3.579.2.462 Unknown [id number] 2.16.8 40.1.921650.3.579.2.462 Unknown [id number] 2.16.8 40.1.075205.3.579.2.462 Unknown [id number] 2.16.8 40.1.265797.3.579.2.462 Unknown [id number] 2.16.8 40.1.384513.3.579.2.462 Unknown [id number] 2.16.8 40.1.302454.3.579.2.462 Unknown [id number] 2.16.8 40.1.523594.3.579.2.462 Unknown [id number] 2.16.8 40.1.718420.3.579.2.462 Unknown [id number] 2.16.8 40.1.992140.3.579.2.462 Unknown [id number] 2.16.8 40.1.405333.3.579.2.462 Unknown [id number] 2.16.8 40.1.291774.3.579.2.462 Unknown [id number] 2.16.8 40.1.128350.3.579.2.462 Unknown [id number] 2.16.8 40.1.787487.3.579.2.462 Unknown [id number] 2.16.8 40.1.724741.3.579.2.462 Social History Date Type Detail Facility Start: 03-04-2020 End: 10-22-2022 Never smoked tobacco (finding) [facility] Sex Assigned At [facility] Start: 06-06-2022 End: 12-19-2022 Tobacco smoking status NHIS Unknown if ever smoked [facility] Start: 08-15-2019 None [facility] Start: 08-15-2019 With Family [facility] Start: 1998 Sex Assigned At Female [facility] Start: 10-22-2022 Tobacco use and exposure Smokeless tobacco non-user [facility] Start: 10-22-2022 End: 05-12-2025 Alcohol intake Current non-drinker of alcohol (finding) [facility] Start: 1998 Sex Assigned At Not on file [facility] Start: 10-12-2022 End: 10-22-2022 Exposure to SARS-CoV-2 (event) Not sure [facility] Work Phone: [facility] Start: 09-09-2023 End: 10-15-2023 History of Social function [facility] Start: 09-09-2023 End: 10-15-2023 Tobacco use panel [facility] Retired 12/23/2019 P HQ Score 0 [facility] Start: 07-18-2018 Sex Female (finding) [facility] Goals Date Patient Goal Desired Activity /State Functional Status Date Assessment Result Facility 06-14-2024 Functional Status Room check performed [facility] 06-14-2024 Functional Status [facility] 02-21-2024 Functional Status Independent [facility] 02-21-2024 Functional Status Standard Safety ID band on [facility] 02-19-2024 Functional Status Up to bathroom [facility] 02-19-2024 Functional Status bilateral knee high applied/on [facility] 02-19-2024 Functional Status Maintained [facility] 02-05-2024 Functional Status Sensory Deficits None A [facility] 12-31-2023 Functional Status Independent [facility] 12-31-2023 Functional Status ID band on, Call device within reach, Bed in low position, Wheels locked, Upper/Half-Length side-rails up, Visitor at bedside, Safety level maintained [facility] 12-20-2023 Functional Status Activity Joe tance Independent [facility] 12-20-2023 Functional Status Standard Safety ID band on [facility] 06-06-2023 Functional Status Ambulating in mishra, Ambulating in room, Awake [facility] 06-06-2023 Functional Status Standard Safet y ID band on, Call device within reach, Bed in low position, Wheels locked, Upper/Half-Length side-rails up, personal items within reach [facility] 05-17-2018 Are you deaf, or do you have serious difficulty hearing No 05/17/2018 10:27 PM Barbra Mcnair, RN No [facility] 05-17-2018 Are you blind, or do you have serious difficulty seeing, even when wearing glasses No 05/17/2018 10:27 PM Barbra Mcnair, RN No [facility] 05-17-2018 Do you have serious difficulty walking or climbing stairs No 05/17/2018 10:27 PM Barbra Mcnair, DL No [facility] 05-17-2018 Do you have difficul ty dressing or bathing No 05/17/2018 10:27 PM Barbra Mcnair, RN No [facility] 05-17-2018 Because of a physica l, mental, or emotional condition, do you have difficulty doing errands alone such as visiting a physician's office or shopping No 05/17/2018 10:27 PM Barbra Mcnair, RN No [facility] Mental Status Date Assessment Result Facility 06-14-2024 Mental Status Orientation Oriented x 4 [facility] 06-14-2024 Mental Status [facility] 05-27-2024 Mental Status Orientation Oriented x 4 [facility] 02-21-2024 Mental Status Orientation Oriented x 4 [facility] 02-19-2024 Mental Status Oriented x 4 [facility] 02-19-2024 Mental Status Orientation Asse ssment Oriented x 4 [facility] 12-31-2023 Mental Status Orientation Oriented x 4 [facility] 12-31-2023 Mental Status [facility] 12-20-2023 Mental Status Orientation Oriented x 4 [facility] 12-20-2023 Mental Status [facility] 06-06-2023 Mental Status Orientation Oriented x 4 [facility] 06-06-2023 Mental Status [facility] 08-30-2022 Cognitive function Voice/Name [facility] Work Phone: 05-17-2018 Because of a physica l, mental, or emotional condition, do you have serious difficulty concentrating, remembering, or making decisions No 05/17/2018 10:27 PM EDT Barbra Hess RN No [facility] Clinical Notes 05-17-2018 to 05-12-2025 Lul Wong APRN.BATTER[employer]GER [employer] - 05/12/2025 4:13 PM Mariposa Stanley PA-C - 02/22/2025 6:19 PM EDTLMilka Hussein MD - 10/22/2023 3:44 PM ESTLaboratoryLaboratory Note Date & Type Note Facility 05-12-2025 Note HNO ID: [id number] Author: LUL WONG APRN.BATTER[employer]GER [employer] Service: ? Author Type: Nurse Practitioner Type: Progress Notes Filed: 05/12/2025 16:17 Note Text: [facility] Subjective HPI HPI Alma Harrell is a 25 year old female who presents today for CC of sore throat, fever, body aches. This started 4 days ago. Has tried otc medication for relief. Symptoms are worsened by nothing. Risk factors no sick exposures. Nonsmoker. Denies possibility of being . Is . .Patient presents with: Sore Throat: GALVEZ, bodyaches x4 days, intermittent low fever PAST MEDICAL HISTORY Diagnosis Date Anxiety disorder Depression Mood changes depression 09/23/2018 PAST SURGICAL HISTORY Procedure Laterality Date NONE ALLERGIES Patient has no known allergies. MEDICATIONS amoxicillin (AMOXIL) 500 mg capsule Take 1 capsule by mouth two times a day for 10 days. zuranolone (ZURZUVAE ORAL) Take 50 mg by mouth two times a day at 6 am and 9 pm. Take with fat-containing food. (Patient not taking: Reported on 05/12/2025) [id number] 1,000mcg-680mcg DFE-1.5 mg chew (Patient not taking: Reported on 02/22/2025) brexpiprazole (REXULTI) 1 mg (4)- 2 mg (3) tablets in a dose pack (Patient not taking: Reported on 02/22/2025) Cholecalciferol, Vitamin D3, (D3-5000) 125 mcg (5,000 unit) cap (Patient not taking: Reported on 02/22/2025) FLUoxetine (PROZAC) 60 mg tablet Take 1 tablet by mouth every afternoon. (Patient not taking: Reported on 02/22/2025) FAMILY HISTORY Problem Relation Age of Onset Diabetes Maternal Grandmother Social History Tobacco Use Smoking status: Never Smokeless tobacco: Never Substance Use Topics Alcohol use: No Drug use: No Review of Systems Constitutional: Positive for fever. Negative for chills and fatigue. HENT: Positive for sore throat. Negative for ear discharge, ear pain, rhinorrhea, sinus pressure and sinus pain. Eyes: Negative for discharge and redness. Respiratory: Negative for cough, shortness of breath and wheezing. Cardiovascular: Negative for chest pain. Skin: Negative for rash. Objective BP 125/87 Pulse 116 Temp 37.1 ?C (98.8 ?F) Resp 18 Wt 89.9 kg (198 lb 3.1 oz) LMP 02/06/2024 (Approximate) SpO2 96% Yes BMI 31.04 kg/m? Physical Exam Constitutional: General: She is not in acute distress. Appearance: She is not toxic-appearing or diaphoretic. HENT: Head: Normocephalic and atraumatic. Right Ear: Hearing, tympanic membrane, ear canal and external ear normal. Left Ear: Hearing, tympanic membrane, ear canal and external ear normal. Nose: Nose normal. Mouth/Throat: Lips: [place]. Mouth: Mucous membranes are moist. Pharynx: Uvula midline. Posterior oropharyngeal erythema present. Tonsils: 0 on the right. 0 on the left. Eyes: General: Lids are normal. No scleral icterus. Right eye: No discharge. Left eye: No discharge. Conjunctiva/sclera: Conjunctivae normal. Pupils: Pupils are equal, round, and reactive to light. Neck: Trachea: Trachea normal. Cardiovascular: Rate and Rhythm: Normal rate and regular rhythm. Heart sounds: Normal heart sounds. Pulmonary: Effort: Pulmonary effort is normal. Breath sounds: Normal breath sounds. Musculoskeletal: Cervical back: Normal range of motion and neck supple. Lymphadenopathy: Cervical: Cervical adenopathy present. Right cervical: Superficial cervical adenopathy present. Left cervical: Superficial cervical adenopathy present. Skin: Findings: No rash. Neurological: Mental Status: She is alert and oriented to person, place, and time. {ASSESSMENT/PLAN: 1. Strep throat - ICD9: 034.0, ICD10: J02.0 (primary diagnosis) - suspect strep - Group A strep molecular testing positive - antibiotic as written - Discussed supportive care treatment with fluids, rest and analgesia. - Contagious dz precautions discussed- including considered contagious until on antibiotics for 24 hours - The patient should follow up in 3-5 days if symptoms persist or worsen - AMOXICILLIN 500 MG CAPSULE 2. Sore throat - ICD9: 462, ICD10: J02.9 Positive, strep - STREP A MOLECULAR (POC) Lul Wong APRN.BATTERY CHARGER [employer] History and Record Review External record(s) reviewed: prior outpatient record. Disposition The patient was discharged. Procedures [facility] 05-12-2025 History of Present illness Narrative [facility] Subjective HPI HPI Alma Harrell is a 25 year old female who presents today for CC of sore throat, fever, body aches. This started 4 days ago. Has tried otc medication for relief. Symptoms are worsened by nothing. Risk factors no sick exposures. Nonsmoker. Denies possibility of being . Is . .Patient presents with: Sore Throat: GALVEZ, bodyaches x4 days, intermittent low fever PAST MEDICAL HISTORY Diagnosis Date Anxiety disorder Depression Mood changes depression 09/23/2018 PAST SURGICAL HISTORY Procedure Laterality Date NONE ALLERGIES Patient has no known allergies. MEDICATIONS amoxicillin (AMOXIL) 500 mg capsule Take 1 capsule by mouth two times a day for 10 days. zuranolone (ZURZUVAE ORAL) Take 50 mg by mouth two times a day at 6 am and 9 pm. Take with fat-containing food. (Patient not taking: Reported on 05/12/2025) [id number]-fborvqduysgfbjyndkzssa-A7 1,000mcg-680mcg DFE-1.5 mg chew (Patient not taking: Reported on 02/22/2025) brexpiprazole (REXULTI) 1 mg (4)- 2 mg (3) tablets in a dose pack (Patient not taking: Reported on 02/22/2025) Cholecalciferol, Vitamin D3, (D3-5000) 125 mcg (5,000 unit) cap (Patient not taking: Reported on 02/22/2025) FLUoxetine (PROZAC) 60 mg tablet Take 1 tablet by mouth every afternoon. (Patient not taking: Reported on 02/22/2025) FAMILY HISTORY Problem Relation Age of Onset Diabetes Maternal Grandmother Social History Tobacco Use Smoking status: Never Smokeless tobacco: Never Substance Use Topics Alcohol use: No Drug use: No Review of Systems Constitutional: Positive for fever. Negative for chills and fatigue. HENT: Positive for sore throat. Negative for ear discharge, ear pain, rhinorrhea, sinus pressure and sinus pain. Eyes: Negative for discharge and redness. Respiratory: Negative for cough, shortness of breath and wheezing. Cardiovascular: Negative for chest pain. Skin: Negative for rash. Objective BP 125/87 Pulse 116 Temp 37.1 C (98.8 F) Resp 18 Wt 89.9 kg (198 lb 3.1 oz) LMP 02/06/2024 (Approximate) SpO2 96% Yes BMI 31.04 kg/m Physical Exam Constitutional: General: She is not in acute distress. Appearance: She is not toxic-appearing or diaphoretic. HENT: Head: Normocephalic and atraumatic. Right Ear: Hearing, tympanic membrane, ear canal and external ear normal. Left Ear: Hearing, tympanic membrane, ear canal and external ear normal. Nose: Nose normal. Mouth/Throat: Lips: [place]. Mouth: Mucous membranes are moist. Pharynx: Uvula midline. Posterior oropharyngeal erythema present. Tonsils: 0 on the right. 0 on the left. Eyes: General: Lids are normal. No scleral icterus. Right eye: No discharge. Left eye: No discharge. Conjunctiva/sclera: Conjunctivae normal. Pupils: Pupils are equal, round, and reactive to light. Neck: Trachea: Trachea normal. Cardiovascular: Rate and Rhythm: Normal rate and regular rhythm. Heart sounds: Normal heart sounds. Pulmonary: Effort: Pulmonary effort is normal. Breath sounds: Normal breath sounds. Musculoskeletal: Cervical back: Normal range of motion and neck supple. Lymphadenopathy: Cervical: Cervical adenopathy present. Right cervical: Superficial cervical adenopathy present. Left cervical: Superficial cervical adenopathy present. Skin: Findings: No rash. Neurological: Mental Status: She is alert and oriented to person, place, and time. {ASSESSMENT/PLAN: 1. Strep throat - ICD9: 034.0, ICD10: J02.0 (primary diagnosis) - suspect strep - Group A strep molecular testing positive - antibiotic as written - Discussed supportive care treatment with fluids, rest and analgesia. - Contagious dz precautions discussed- including considered contagious until on antibiotics for 24 hours - The patient should follow up in 3-5 days if symptoms persist or worsen - AMOXICILLIN 500 MG CAPSULE 2. Sore throat - ICD9: 462, ICD10: J02.9 Positive, strep - STREP A MOLECULAR (POC) Lul Wong APRN.BATTERY CHARGER [employer] History and Record Review External record(s) reviewed: prior outpatient record. Disposition The patient was discharged. Procedures documented in this encounter [facility] 02-22-2025 Note HNO ID: [id number] Author: MARIPOSA NAJERA PA-C Service: ? Author Type: Physician [employer] Operator Type: Progress Notes Filed: 02/22/2025 18:23 Note Text: This note was created using [email or web address]. Subjective Alma Harrell is a 24 year old female. Patient is a 24-year-old female who complains of worsening sore throat that she has been experiencing for the past 3 days. Patient denies congestion, sinus pressure, ear pain, cough or other illness symptoms. Patient reports no fever, chills or myalgia. Patient is 2 months and is breast-feeding. Patient reports that other family members at home are currently asymptomatic. Sore Throat Review of Systems HENT: Positive for sore throat. All other systems reviewed and are negative. Objective BP 120/81 Pulse (!) 124 Temp 37.4 ?C (99.3 ?F) Resp 18 Wt 89 kg (196 lb 3.4 oz) LMP 02/06/2024 (Approximate) SpO2 97% Yes BMI 30.73 kg/m? Physical Exam Vitals and nursing note reviewed. Constitutional: Appearance: Normal appearance. She is normal weight. HENT: Head: Normocephalic and atraumatic. Right Ear: External ear normal. Left Ear: External ear normal. Nose: Nose normal. Mouth/Throat: Mouth: Mucous membranes are moist. Pharynx: Oropharynx is clear. Posterior oropharyngeal erythema present. Eyes: Extraocular Movements: Extraocular movements intact. Conjunctiva/sclera: Conjunctivae normal. Pupils: Pupils are equal, round, and reactive to light. Cardiovascular: Rate and Rhythm: Normal rate and regular rhythm. Pulses: Normal pulses. Pulmonary: Effort: Pulmonary effort is normal. Breath sounds: Normal breath sounds. Musculoskeletal: Cervical back: Normal range of motion and neck supple. Skin: General: Skin is warm and dry. Capillary Refill: Capillary refill takes less than 2 seconds. Neurological: General: No focal deficit present. Mental Status: She is alert and oriented to person, place, and time. Psychiatric: Mood and Affect: Mood normal. Behavior: Behavior normal. Thought Content: Thought content normal. Judgment: Judgment normal. Assessment and Plan Physical exam findings as noted above. Rapid strep test is positive. Patient was provided with a prescription for Augmentin 875-125 mg and supportive care instructions were discussed. Patient verbalizes excellent understanding of same. CLINICAL IMPRESSION: Acute Streptococcal Tonsillitis ASSESSMENT/PLAN: 1. Sore throat - ICD9: 462, ICD10: J02.9 (primary diagnosis) - STREP A MOLECULAR (POC) 2. Acute non-recurrent streptococcal tonsillitis - ICD9: 034.0, ICD10: J03.00 - AMOXICILLIN 875 MG-POTASSIUM CLAVULANATE 125 MG TABLET MDM Amount and/or Complexity of Data Reviewed Clinical lab tests: ordered and reviewed Risk of Complications, Morbidity, and/or Mortality Presenting problems: low Diagnostic procedures: low Management options: kike Najera PA-C [facility] 02-22-2025 History of Present illness Narrative This note was created using [email or web address]. Subjective Alam Harrell is a 24 year old female. Patient is a 24-year-old female who complains of worsening sore throat that she has been experiencing for the past 3 days. Patient denies congestion, sinus pressure, ear pain, cough or other illness symptoms. Patient reports no fever, chills or myalgia. Patient is 2 months and is breast-feeding. Patient reports that other family members at home are currently asymptomatic. Sore Throat Review of Systems HENT: Positive for sore throat. All other systems reviewed and are negative. Objective BP 120/81 Pulse (!) 124 Temp 37.4 C (99.3 F) Resp 18 Wt 89 kg (196 lb 3.4 oz) LMP 02/06/2024 (Approximate) SpO2 97% Yes BMI 30.73 kg/m Physical Exam Vitals and nursing note reviewed. Constitutional: Appearance: Normal appearance. She is normal weight. HENT: Head: Normocephalic and atraumatic. Right Ear: External ear normal. Left Ear: External ear normal. Nose: Nose normal. Mouth/Throat: Mouth: Mucous membranes are moist. Pharynx: Oropharynx is clear. Posterior oropharyngeal erythema present. Eyes: Extraocular Movements: Extraocular movements intact. Conjunctiva/sclera: Conjunctivae normal. Pupils: Pupils are equal, round, and reactive to light. Cardiovascular: Rate and Rhythm: Normal rate and regular rhythm. Pulses: Normal pulses. Pulmonary: Effort: Pulmonary effort is normal. Breath sounds: Normal breath sounds. Musculoskeletal: Cervical back: Normal range of motion and neck supple. Skin: General: Skin is warm and dry. Capillary Refill: Capillary refill takes less than 2 seconds. Neurological: General: No focal deficit present. Mental Status: She is alert and oriented to person, place, and time. Psychiatric: Mood and Affect: Mood normal. Behavior: Behavior normal. Thought Content: Thought content normal. Judgment: Judgment normal. Assessment and Plan Physical exam findings as noted above. Rapid strep test is positive. Patient was provided with a prescription for Augmentin 875-125 mg and supportive care instructions were discussed. Patient verbalizes excellent understanding of same. CLINICAL IMPRESSION: Acute Streptococcal Tonsillitis ASSESSMENT/PLAN: 1. Sore throat - ICD9: 462, ICD10: J02.9 (primary diagnosis) - STREP A MOLECULAR (POC) 2. Acute non-recurrent streptococcal tonsillitis - ICD9: 034.0, ICD10: J03.00 - AMOXICILLIN 875 MG-POTASSIUM CLAVULANATE 125 MG TABLET MDM Amount and/or Complexity of Data Reviewed Clinical lab tests: ordered and reviewed Risk of Complications, Morbidity, and/or Mortality Presenting problems: low Diagnostic procedures: low Management options: low Mariposa Najera PA-C documented in this encounter [facility] 06-14-2024 Hospital Discharge instructions Patient Education 06/14/2024 09:04:25 Ankle Sprain (Adult) Ankle Sprain (Adult) An ankle sprain is a stretching or tearing of the ligaments that hold the ankle joint together. There are no broken bones. An ankle sprain is a common injury for both children and adults. It happens when the ankle turns, twists, or rolls in an awkward way. This can be caused by a sports injury. Or it can happen from doing something as simple as stepping on an uneven surface. Ligaments are made of tough connective tissue. Normally, ligaments stretch a certain amount and then go back to their normal place. A sprain happens when a ligament is forced to stretch more than the normal amount. A severe sprain can actually tear the ligaments. If you have a severe sprain, you may have felt or heard something like a pop when you were injured. Ankle sprains are given a grade depending on whether they are mild, moderate, or severe: Grade 1 sprain. A mild sprain with minor stretching and damage to the ligament. Grade 2 sprain. A moderate sprain where the ligament is partly torn. Grade 3 sprain. The most severe kind of sprain. The ligament is completely torn. Most sprains take about 4 to 6 weeks to heal. A severe sprain can take several months to recover. Your healthcare provider may order X-rays to be sure you don t have a fracture, or broken bone. The injured area will feel sore. Swelling and pain may make it hard to walk. You may need crutches if walking is painful. Or your provider may have you use a cast boot or air splint. This will depend on the grade of ankle sprain that you have. Home care For a Grade 1 sprain, use RICE (rest, ice, compression, and elevation): Rest your ankle. Don t walk on it. Ice should be used right away to help control swelling. Place an ice pack over the injured area for 20 minutes. Do this every 3 to 6 hours for the first 24 to 48 hours. Keep using ice packs to ease pain and swelling as needed. To make an ice pack, put ice cubes in a plastic bag that seals at the top. Wrap the bag in a clean, thin towel or cloth. Never put ice or an ice pack directly on the skin. The ice pack can be put right on the cast, bandage, or splint. As the ice melts, be careful that the cast, bandage, or splint doesn t get wet. If you have a boot, open it to apply an ice pack, unless told otherwise by your provider. Compression devices help to control swelling. They also keep the ankle from moving and support your injured ankle. These devices include dressings, bandages, and wraps. Elevate or raise your ankle above the level of your heart when sitting or lying down. This is very important for the first 48 hours. Follow the RICE guidelines for a Grade 2 sprain. This type of sprain will take longer to heal. Your provider may have you wear a splint, cast, or brace to keep your ankle from moving. If you have a Grade 3 sprain, you are at risk for long-term ankle instability. In rare cases, surgery may be needed. Your provider may have you wear a short leg cast or a walking boot for 2 to 3 weeks. After 48 hours, it may be helpful to apply heat for 20 minutes several times a day. You can do this with a heating pad or warm compress. Or you may want to go back and forth between using ice and heat. Never apply heat directly to the skin. Always wrap the heating pad or warm compress in a clean, thin towel or cloth. You may use wobv-ync-qohfham pain medicine (NSAIDS or nonsteroidal anti-inflammatory drugs) to control pain, unless another pain medicine was prescribed. Talk with your provider before using these medicines if you have chronic liver or kidney disease, or have ever had a stomach ulcer or gastrointestinal bleeding. Follow any rehabilitation exercises your provider gives you. These can help you be more flexible and improve your balance and coordination. This is helpful in preventing long-term ankle problems. Prevention To help prevent ankle sprains, it s important to have good strength, balance, and flexibility. Be sure to: Always warm up before you exercise or do something very active Be careful when walking or running on uneven or cracked surfaces Wear shoes that are in good condition and fit well Listen to your body s signals to slow down when you are in pain or tired Follow-up care Any X-rays you had today don t show any broken bones, breaks, or fractures. Sometimes fractures don t show up on the first X-ray. Bruises and sprains can sometimes hurt as much as a fracture. These injuries can take time to heal completely. If your symptoms don t get better or they get worse, talk with your healthcare provider. You may need a repeat X-ray. Follow up with your healthcare provider, or as advised. Check for any warning signs listed below. When to seek medical advice Call your healthcare provider right away if any of these occur: Fever of 100.4 F (38 C) or higher, or as directed by your healthcare provider Chills The injury doesn t seem to be healing The swelling comes back The cast or splint has a bad smell The plaster cast or splint gets wet or soft The fiberglass cast or splint gets wet and does not dry for 24 hours The pain or swelling increases, or redness appears Your toes become cold, blue, numb, or tingly The skin is discolored (looks blue, purple, or robertson), has blisters, or is irritated You re-injure your ankle [id number] The [employer]. [address] [place] [address]. All rights reserved. This information is not intended as a substitute for professional medical care. Always follow your healthcare professional's instructions. Follow Up Care 06/14/2024 08:12:46 With:CA KARIMI Address: [address] [place] [address] [facility] [place] [address]- [phone] Business (1) When:2-4 days Comments:Return to ED if symptoms worsen [facility] Address: [address] [place] [address] [place] [address] [phone] When:2-4 days [facility] 06-14-2024 Note Discharge Instructions Thank you for allowing [facility] to assist you with your healthcare needs. The following is important discharge information regarding your hospital visit. Diagnosis from Today's Visit Ankle sprain What to Do Next Instructions from Your Care Team Discharge Home Equipment - Ordered -- Crutches, 99 month(s), 06/14/24 9:04:00 EDT Post Acute Orders No qualifying data available. You Need to Schedule the Following Appointments Follow Up with CA KARIMI When:Within 2-4 days Where:[address] [facility] [place] [address] [phone] Business (1) Additional Information: Return to ED if symptoms worsen Follow Up with DAI PAINTING When:Within 2-4 days Where:[address] [facility] [place], [place] [id number]- [phone] Allergies NKA Medications Please ask your primary doctor or pharmacist before taking any other medication not listed, including over the counter drugs, herbal medications, vitamins and or supplements as they may interact with your home medications. What How Much When Instructions Last Dose Unchanged ondansetron (ondansetron 4 mg oral tablet, disintegrating) Unchanged promethazine (promethazine 12.5 mg oral tablet) 1 tab(s) by mouth Every 4 hours Duration: 5 Days Please take this list to your next doctor s visit. Bring all medications you take, including over the counter medications, herbals and other supplements with you to your doctor s visit. Patients and families are reminded to discard old lists and to update any records with all medication providers or retail pharmacies. Education Materials Ankle Sprain (Adult) An ankle sprain is a stretching or tearing of the ligaments that hold the ankle joint together. There are no broken bones. An ankle sprain is a common injury for both children and adults. It happens when the ankle turns, twists, or rolls in an awkward way. This can be caused by a sports injury. Or it can happen from doing something as simple as stepping on an uneven surface. Ligaments are made of tough connective tissue. Normally, ligaments stretch a certain amount and then go back to their normal place. A sprain happens when a ligament is forced to stretch more than the normal amount. A severe sprain can actually tear the ligaments. If you have a severe sprain, you may have felt or heard something like a pop when you were injured. Ankle sprains are given a grade depending on whether they are mild, moderate, or severe: Grade 1 sprain. A mild sprain with minor stretching and damage to the ligament. Grade 2 sprain. A moderate sprain where the ligament is partly torn. Grade 3 sprain. The most severe kind of sprain. The ligament is completely torn. Most sprains take about 4 to 6 weeks to heal. A severe sprain can take several months to recover. Your healthcare provider may order X-rays to be sure you don t have a fracture, or broken bone. The injured area will feel sore. Swelling and pain may make it hard to walk. You may need crutches if walking is painful. Or your provider may have you use a cast boot or air splint. This will depend on the grade of ankle sprain that you have. Home care For a Grade 1 sprain, use RICE (rest, ice, compression, and elevation): Rest your ankle. Don t walk on it. Ice should be used right away to help control swelling. Place an ice pack over the injured area for 20 minutes. Do this every 3 to 6 hours for the first 24 to 48 hours. Keep using ice packs to ease pain and swelling as needed. To make an ice pack, put ice cubes in a plastic bag that seals at the top. Wrap the bag in a clean, thin towel or cloth. Never put ice or an ice pack directly on the skin. The ice pack can be put right on the cast, bandage, or splint. As the ice melts, be careful that the cast, bandage, or splint doesn t get wet. If you have a boot, open it to apply an ice pack, unless told otherwise by your provider. Compression devices help to control swelling. They also keep the ankle from moving and support your injured ankle. These devices include dressings, bandages, and wraps. Elevate or raise your ankle above the level of your heart when sitting or lying down. This is very important for the first 48 hours. Follow the RICE guidelines for a Grade 2 sprain. This type of sprain will take longer to heal. Your provider may have you wear a splint, cast, or brace to keep your ankle from moving. If you have a Grade 3 sprain, you are at risk for long-term ankle instability. In rare cases, surgery may be needed. Your provider may have you wear a short leg cast or a walking boot for 2 to 3 weeks. After 48 hours, it may be helpful to apply heat for 20 minutes several times a day. You can do this with a heating pad or warm compress. Or you may want to go back and forth between using ice and heat. Never apply heat directly to the skin. Always wrap the heating pad or warm compress in a clean, thin towel or cloth. You may use jydc-mab-wesjnyl pain medicine (NSAIDS or nonsteroidal anti-inflammatory drugs) to control pain, unless another pain medicine was prescribed. Talk with your provider before using these medicines if you have chronic liver or kidney disease, or have ever had a stomach ulcer or gastrointestinal bleeding. Follow any rehabilitation exercises your provider gives you. These can help you be more flexible and improve your balance and coordination. This is helpful in preventing long-term ankle problems. Prevention To help prevent ankle sprains, it s important to have good strength, balance, and flexibility. Be sure to: Always warm up before you exercise or do something very active Be careful when walking or running on uneven or cracked surfaces Wear shoes that are in good condition and fit well Listen to your body s signals to slow down when you are in pain or tired Follow-up care Any X-rays you had today don t show any broken bones, breaks, or fractures. Sometimes fractures don t show up on the first X-ray. Bruises and sprains can sometimes hurt as much as a fracture. These injuries can take time to heal completely. If your symptoms don t get better or they get worse, talk with your healthcare provider. You may need a repeat X-ray. Follow up with your healthcare provider, or as advised. Check for any warning signs listed below. When to seek medical advice Call your healthcare provider right away if any of these occur: Fever of 100.4 F (38 C) or higher, or as directed by your healthcare provider Chills The injury doesn t seem to be healing The swelling comes back The cast or splint has a bad smell The plaster cast or splint gets wet or soft The fiberglass cast or splint gets wet and does not dry for 24 hours The pain or swelling increases, or redness appears Your toes become cold, blue, numb, or tingly The skin is discolored (looks blue, purple, or robertson), has blisters, or is irritated You re-injure your ankle [id number] The [employer]. [address] [place] [address], [place] [address]. All rights reserved. This information is not intended as a substitute for professional medical care. Always follow your healthcare professional's instructions. Additional Information VACCINATE! IT SAVES LIVES! Members of the community who have not yet received the COVID-19 vaccine and would like to receive it can visit one of [facility] vaccine clinics. There are many vaccine clinic locations within the [facility]. For locations and available times, please visit [email or web address].[place].g [email or web address] It is important to note that some COVID mobile vaccine clinics are held outdoors and may be canceled in rainy or stormy conditions. To learn more about pediatric vaccinations (ages 5-11), we invite you to visit the [facility] webpage. [email or web address] [email or web address]/pa [email or web address]-Crkxp-Kmujbpxzbwp-Freque mktj-Hsxqs-Rlzahyesh.html To learn more about the COVID-19 vaccine, we invite you to visit the CDC website for a list of frequently asked questions. https://www.cdc.gov/coronavirus/2 019-ncov/vaccines/faq.html [facility] Patient Portal Access Instructions: Stay connected with your healthcare team and access your personal medical information anytime with the [employer] Patient Portal. If you would like a full copy of your medical records please contact the [facility] Medical Records Department Friday through Friday between 8a.m. and 4:30p.m. Please follow the directions below to access the portal: 1.Access the email account you provided upon registration to the hospital.2.Look for an invitation email from [facility].3.Open the email and access the invitation link: Accept Invitation to [facility].Fill in the required ervin to create your account. Sign into [email or web address] with your username and password that you created in the above steps to stay up to date. You can then view a summary of results, a summary of your visits, and the ability to download your summaries to your computer or send the information securely to a physician. Remember that your healthcare information is confidential, so carefully consider who you will allow to register on the [facility] Patient Portal for access to your information. You can also access the [facility] Patient Portal on the [employer]. Simply click on Health Records under Health Data and then click on the [employer] logo. HOW TO SAFELY DISPOSE OF PRESCRIPTION MEDICATIONS Please use one of the following methods to safely dispose of your unused medications. 1.Use a drug disposal kit: the drug disposal pouch allows you to safely discard your old and unused drugs. Ask your nurse to give you one when you are discharged.2.Visit a local take-back location: Many local pharmacies and police departments have programs that collect old and unwanted prescription drugs. Call your local pharmacy or go to http://[employer] Sportstoys.Wedding Party/9I7Wj9z to find one close to you.3.Make use of household items: Use cat litter or old coffee grounds to dispose medications if other options are not available. Mix your drugs with these household products, seal them in an airtight container and throw it into the garbage. Call [facility]: [phone] to be sure your drugs can be disposed of in this way. Some medicines may require a different approach.4.Never flush your medications down the toilet. IF YOU HAVE BEEN PRESCRIBED AN OPIOIDS FOR PAIN If you have been prescribed an opioid (such as hydrocodone, oxycodone or morphine), it is critical to understand the possible side effects and risks of opioid pain medications. Even when taken as directed, opioids can have several side effects including: Tolerance, meaning you might need to take more of a medication for the same pain relief. Nausea, vomiting and/or constipation. Sleepiness, dizziness, dry mouth, confusion, depression or itching. Physical dependence, meaning you have withdrawal symptoms when a medication is stopped ? this can develop within a few days. KNOW YOUR RESPONSIBILITIES It is important to know exactly how much and how often to take the opioid pain medications you are prescribed. Never take opioids in higher amounts or more often than prescribed. Do not combine opioids with alcohol or other drugs that cause drowsiness, such as benzodiazepines, also known as benzos, including diazepam and alprazolam, muscle relaxants or sleep aids. Never sell or share prescription opioids. This is illegal. Store opioids in a secure place and out of reach of others (including children, family, friends and visitors). The last page(s) of this document has been signed and retained as a CHART COPY Signatures Patient Education Materials Ankle Sprain (Adult) Medication Leaflets My discharge plan and instructions have been reviewed and explained to me and SHARRI Johnson ASHLEY N understand my current condition and have read and understand these discharge instructions. I have received a written copy of the plan/instructions. If I have questions, I am aware that I should contact my doctor. Patient/Informatics Spec Signature: Date/Time: Relationship to Patient: ____ Witness Name/Signature: Date/Time: [facility] 06-14-2024 Note ORIGINAL EXAMINATION: 6 XRAY VIEWS OF THE RIGHT FOOT AND ANKLE06/14/2024 8:39 am COMPARISON: None HISTORY: ORDERING SYSTEM PROVIDED HISTORY: Reason for Exam: pain FINDINGS: The ankle mortise and talar dome are intact. There is no acute fracture or dislocation. There is no significant soft tissue swelling. There is no radiopaque foreign body. The articulations are intact. IMPRESSION: No acute fracture or dislocation. Interpreted by: Garcia Welch DO Preliminary Report By: Garcia Welch DO Electronically signed By Garcia Welch DO Dictated Date: 06/14/2024 8:46:37 AM Prelim Date: 06/14/2024 8:49:24 AM Sign Date: 06/14/2024 8:49:24 AM Ordering Provider: SHAVONNE REILLY [facility] 05-27-2024 Hospital Discharge instructions Patient Education 05/27/2024 20:36:24 Hyperemesis Gravidarum Hyperemesis Gravidarum Hyperemesis gravidarum is a severe form of morning sickness that can affect some women during . It may develop around the 5th week and last until the 16th week of . In some women, it may last longer. Symptoms include severe nausea and vomiting. This can lead to problems such as weight loss and dehydration. It's not clear what causes hyperemesis gravidarum. It may be from rising hormone levels early in the . It can be a serious threat to mother and fetus if symptoms are severe. Follow the advice below carefully. If your symptoms don't get better with home care measures, you may need to stay in the hospital. In the hospital, you may get IV (intravenous) fluids and medicines. Home care Diet Keep a log of the foods you eat and how they affect your symptoms. Don't eat foods that trigger your symptoms. Eat small meals often throughout the day rather than 3 large meals. This can help keep your stomach from being empty. An empty stomach can make nausea worse. Choose foods that are high in carbohydrates. Eating foods high in protein may also help. Limit greasy or spicy foods. Before getting out of bed in the morning, try eating crackers or dry toast. This may help settle your stomach. Drink cold, clear liquids. Drinking small amounts of liquids with electrolytes, such as sports drinks, may help as well. Medicine If needed, your healthcare provider may prescribe certain medicines to help ease nausea and vomiting. Your provider may suggest vitamin B6 and sobia. Don t try any mfmt-upt-xlabcka medicines or home remedies without talking with your provider first. Follow-up care Follow up with your healthcare provider, or as advised. When to seek medical advice Call your healthcare provider right away if any of these occur: Signs of dehydration. These include dry mouth, extreme thirst, dark urine or little urine output, dizziness, weakness, or fainting. Vomiting that won t stop Inability to keep down liquids Frequent diarrhea Weight loss or no weight gain over a 2-week period Severe constant pain in the lower right abdomen Fever of 100.4 F (38 C) or higher, or as directed by your healthcare provider [id number] [employer]. [address] [place] [address]. All rights reserved. This information is not intended as a substitute for professional medical care. Always follow your healthcare professional's instructions. Follow Up Care 05/27/2024 17:29:08 With:DAI PAINTING Address: [address] [place] [address] [place] [address]- [phone] Business (1) When:2-4 days Comments:Drink plenty fluids, you may use Phenergan for nausea. Do not use Phenergan and Zofran for nausea, follow-up with your OB doctor, return if any worsening or concerning symptoms. [facility] 05-27-2024 Note Discharge Instructions Thank you for allowing [facility] to assist you with your healthcare needs. The following is important discharge information regarding your hospital visit. Diagnosis from Today's Visit Vomiting What to Do Next Instructions from Your Care Team No qualifying data available. Post Acute Orders No qualifying data available. You Need to Schedule the Following Appointments Follow Up with DAI PAINTING When:Within 2-4 days Where:[address] [facility] [place] [address]- [phone] Business (1) Additional Information: Drink plenty fluids, you may use Phenergan for nausea. Do not use Phenergan and Zofran for nausea, follow-up with your OB doctor, return if any worsening or concerning symptoms. Allergies NKA Medications Please ask your primary doctor or pharmacist before taking any other medication not listed, including over the counter drugs, herbal medications, vitamins and or supplements as they may interact with your home medications. What How Much When Instructions Last Dose New promethazine (promethazine 12.5 mg oral tablet) 1 tab(s) by mouth Every 4 hours Duration: 5 Days Printed Prescription Unchanged ondansetron (ondansetron 4 mg oral tablet, disintegrating) Please take this list to your next doctor s visit. Bring all medications you take, including over the counter medications, herbals and other supplements with you to your doctor s visit. Patients and families are reminded to discard old lists and to update any records with all medication providers or retail pharmacies. Education Materials Hyperemesis Gravidarum Hyperemesis gravidarum is a severe form of morning sickness that can affect some women during . It may develop around the 5th week and last until the 16th week of . In some women, it may last longer. Symptoms include severe nausea and vomiting. This can lead to problems such as weight loss and dehydration. It's not clear what causes hyperemesis gravidarum. It may be from rising hormone levels early in the . It can be a serious threat to mother and fetus if symptoms are severe. Follow the advice below carefully. If your symptoms don't get better with home care measures, you may need to stay in the hospital. In the hospital, you may get IV (intravenous) fluids and medicines. Home care Diet Keep a log of the foods you eat and how they affect your symptoms. Don't eat foods that trigger your symptoms. Eat small meals often throughout the day rather than 3 large meals. This can help keep your stomach from being empty. An empty stomach can make nausea worse. Choose foods that are high in carbohydrates. Eating foods high in protein may also help. Limit greasy or spicy foods. Before getting out of bed in the morning, try eating crackers or dry toast. This may help settle your stomach. Drink cold, clear liquids. Drinking small amounts of liquids with electrolytes, such as sports drinks, may help as well. Medicine If needed, your healthcare provider may prescribe certain medicines to help ease nausea and vomiting. Your provider may suggest vitamin B6 and sobia. Don t try any ztvo-yty-qarqceb medicines or home remedies without talking with your provider first. Follow-up care Follow up with your healthcare provider, or as advised. When to seek medical advice Call your healthcare provider right away if any of these occur: Signs of dehydration. These include dry mouth, extreme thirst, dark urine or little urine output, dizziness, weakness, or fainting. Vomiting that won t stop Inability to keep down liquids Frequent diarrhea Weight loss or no weight gain over a 2-week period Severe constant pain in the lower right abdomen Fever of 100.4 F (38 C) or higher, or as directed by your healthcare provider [id number] [employer]. [address] [place] [address]. All rights reserved. This information is not intended as a substitute for professional medical care. Always follow your healthcare professional's instructions. Additional Information VACCINATE! IT SAVES LIVES! Members of the community who have not yet received the COVID-19 vaccine and would like to receive it can visit one of [facility] vaccine clinics. There are many vaccine clinic locations within the [facility]. For locations and available times, please visit [email or web address] It is important to note that some COVID mobile vaccine clinics are held outdoors and may be canceled in rainy or stormy conditions. To learn more about pediatric vaccinations (ages 5-11), we invite you to visit the [facility] webpage. [email or web address] To learn more about the COVID-19 vaccine, we invite you to visit the CDC website for a list of frequently asked questions. https://www.cdc.gov/coronavirus/2 019-ncov/vaccines/faq.html [facility] Patient Portal Access Instructions: Stay connected with your healthcare team and access your personal medical information anytime with the [facility] Patient Portal. If you would like a full copy of your medical records please contact the [facility] Medical Records Department Friday through Friday between 8a.m. and 4:30p.m. Please follow the directions below to access the portal: 1.Access the email account you provided upon registration to the [facility].2.Look for an invitation email from [facility].3.Open the email and access the invitation link: Accept Invitation to [facility]4.Fill in the required ervin to create your account. Sign into [email or web address] with your username and password that you created in the above steps to stay up to date. You can then view a summary of results, a summary of your visits, and the ability to download your summaries to your computer or send the information securely to a physician. Remember that your healthcare information is confidential, so carefully consider who you will allow to register on the [facility] Patient Portal for access to your information. You can also access the [facility] Patient Portal on the [employer] aaron. Simply click on Health Records under Health Data and then click on the [employer] logo. HOW TO SAFELY DISPOSE OF PRESCRIPTION MEDICATIONS Please use one of the following methods to safely dispose of your unused medications. 1.Use a drug disposal kit: the drug disposal pouch allows you to safely discard your old and unused drugs. Ask your nurse to give you one when you are discharged.2.Visit a local take-back location: Many local pharmacies and police departments have programs that collect old and unwanted prescription drugs. Call your local pharmacy or go to http://bit.Wedding Party/8C0Ok2c to find one close to you.3.Make use of household items: Use cat litter or old coffee grounds to dispose medications if other options are not available. Mix your drugs with these household products, seal them in an airtight container and throw it into the garbage. Call [facility]: [phone] to be sure your drugs can be disposed of in this way. Some medicines may require a different approach.4.Never flush your medications down the toilet. IF YOU HAVE BEEN PRESCRIBED AN OPIOIDS FOR PAIN If you have been prescribed an opioid (such as hydrocodone, oxycodone or morphine), it is critical to understand the possible side effects and risks of opioid pain medications. Even when taken as directed, opioids can have several side effects including: Tolerance, meaning you might need to take more of a medication for the same pain relief. Nausea, vomiting and/or constipation. Sleepiness, dizziness, dry mouth, confusion, depression or itching. Physical dependence, meaning you have withdrawal symptoms when a medication is stopped ? this can develop within a few days. KNOW YOUR RESPONSIBILITIES It is important to know exactly how much and how often to take the opioid pain medications you are prescribed. Never take opioids in higher amounts or more often than prescribed. Do not combine opioids with alcohol or other drugs that cause drowsiness, such as benzodiazepines, also known as benzos, including diazepam and alprazolam, muscle relaxants or sleep aids. Never sell or share prescription opioids. This is illegal. Store opioids in a secure place and out of reach of others (including children, family, friends and visitors). The last page(s) of this document has been signed and retained as a CHART COPY Signatures Patient Education Materials Hyperemesis Gravidarum Medication Leaflets My discharge plan and instructions have been reviewed and explained to me and ISHARRI ASHLEY N understand my current condition and have read and understand these discharge instructions. I have received a written copy of the plan/instructions. If I have questions, I am aware that I should contact my doctor. Patient/Informatics Spec Signature: Date/Time: Relationship to Patient: ____ Witness Name/Signature: Date/Time: [facility] 02-21-2024 Hospital Discharge instructions Patient Education 02/21/2024 17:46:15 Managing Post-Op Pain at Home: Medicines Managing Post-Op Pain at Home: Medicines Pain after an operation (post-op pain) is common and expected. These guidelines can help you stay as comfortable as possible. Taking pain medicines Take medicines on time. Do not take more than prescribed. Take only the medicines that your healthcare provider tells you to take. Take pain medicines with some food to avoid an upset stomach. Don t drink alcohol while using pain medicines. Do not drive while taking opioid pain medicines. Types of pain medicines Non-opioid Pqru-csu-njeysxj (such as acetaminophen and ibuprofen) or prescription All relieve mild to moderate pain and some reduce swelling Possible side effects include stomach upset and bleeding, high doses may cause kidney or liver problems Check with your healthcare provider before taking ypum-vmh-igigula pain medicines in addition to your prescribed pain medicine Opioid Always a prescription Relieve moderate to severe pain Possible side effects include stomach upset, nausea, and itching May cause constipation (to help prevent this, eat high-fiber foods and drink plenty of water) Your healthcare provider may recommend a stool softener When to call your healthcare provider Call your healthcare provider or seek immediate attention if you notice any of these symptoms: Nausea, vomiting, diarrhea, lasting constipation, or stomach cramps Breathing problems or a fast heart rate Feeling very tired, sluggish, or dizzy Skin rash [id number] [employer]. [address] [place] [address]. All rights reserved. This information is not intended as a substitute for professional medical care. Always follow your healthcare professional's instructions. Follow Up Care 02/21/2024 15:25:01 With:MARIPOSA BOWER MD, Surgery Address: [address] [facility] [place] [address]- [phone] When:5 to 7 days [facility] 02-21-2024 Emergency department Discharge summary Discharge Instructions Thank you for allowing [facility] to assist you with your healthcare needs. The following is important discharge information regarding your hospital visit. Diagnosis from Today's Visit Abdominal pain Chest tightness Post-operative pain What to Do Next Instructions from Your Care Team No qualifying data available. Post Acute Orders No qualifying data available. You Need to Schedule the Following Appointments Follow Up with MARIPOSA BOWER MD, Surgery When Within 5 to 7 days Where: [address] [facility] [place] [address] [phone] Allergies NKA Medications Please ask your primary doctor or pharmacist before taking any other medication not listed, including over the counter drugs, herbal medications, vitamins and or supplements as they may interact with your home medications. What How Much When Why Instructions Last Dose New acetaminophen-oxyCODONE (Percocet 5 mg-325 mg oral tablet) 1 tab(s) by mouth Every 6 hours as needed for for pain Post-operative pain Duration: 3 Days Printed Prescription Unchanged acetaminophen-hydrocodone (Sigel 325- 5 mg oral tablet) 1 tab(s) by mouth Every 4 hours as needed for Pain, scale 1-6 Acute post-operative pain Duration: 5 Days Unchanged ondansetron (ondansetron 4 mg oral tablet, disintegrating) Please take this list to your next doctor s visit. Bring all medications you take, including over the counter medications, herbals and other supplements with you to your doctor s visit. Patients and families are reminded to discard old lists and to update any records with all medication providers or retail pharmacies. Medication Leaflets acetaminophen and oxycodone (a SEET a MIN oh fen and OX i KOE done) Endocet 10/325, Endocet 2.5/325, Endocet 5/325, Endocet 7.5/325, Nalocet, Percocet, Prolate What is the most important information I should know about acetaminophen and oxycodone? MISUSE OF OPIOID MEDICINE CAN CAUSE ADDICTION, OVERDOSE, OR . Keep the medication in a place where others cannot get to it. Taking opioid medicine during may cause life-threatening withdrawal symptoms in the . Fatal side effects can occur if you use opioid medicine with alcohol, or with other drugs that cause drowsiness or slow your breathing. Stop taking this medicine and call your doctor right away if you have skin redness or a rash that spreads and causes blistering and peeling. What is acetaminophen and oxycodone? Acetaminophen and oxycodone is a combination medicine used to relieve moderate to severe pain. Acetaminophen and oxycodone contains an opioide medicine and may be habit-forming. Acetaminophen and oxycodone may also be used for purposes not listed in this medication guide. What should I discuss with my healthcare provider before taking acetaminophen and oxycodone? You should not use this medicine if you are allergic to acetaminophen or oxycodone, or if you have: severe asthma or breathing problems; or a blockage in your stomach or intestines. Tell your doctor if you have ever had: breathing problems, sleep apnea; liver disease; a drug or alcohol addiction; kidney disease; a head injury or seizures; urination problems; or problems with your thyroid, pancreas, or gallbladder. If you use opioid medicine while you are , your baby could become dependent on the drug. This can cause life-threatening withdrawal symptoms in the baby after it is born. Babies born dependent on opioids may need medical treatment for several weeks. Ask a doctor before using opioid medicine if you are . Tell your doctor if you notice severe drowsiness or slow breathing in the nursing baby. How should I take acetaminophen and oxycodone? Follow all directions on your prescription label. Never take this medicine in larger amounts, or for longer than prescribed. An overdose can damage your liver or cause . Tell your doctor if you feel an increased urge to use more of this medicine. Never share opioid medicine with another person, especially someone with a history of drug abuse or addiction. MISUSE CAN CAUSE ADDICTION, OVERDOSE, OR . Keep the medicine in a place where others cannot get to it. Selling or giving away opioid medicine is against the law. Measure liquid medicine carefully. Use the dosing syringe provided, or use a medicine dose-measuring device (not a kitchen spoon). If you need surgery or medical tests, tell the doctor ahead of time that you are using this medicine. You should not stop using this medicine suddenly. Follow your doctor's instructions about tapering your dose. Store at room temperature away from moisture and heat. Keep track of your medicine. You should be aware if anyone is using it improperly or without a prescription. Do not keep leftover opioid medication. Just one dose can cause in someone using this medicine accidentally or improperly. Ask your pharmacist where to locate a drug take-back disposal program. If there is no take-back program, flush the unused medicine down the toilet. What happens if I miss a dose? Since this medicine is used for pain, you are not likely to miss a dose. Skip any missed dose if it is almost time for your next dose. Do not use two doses at one time. What happens if I overdose? Seek emergency medical attention or call the Poison Help line at . An overdose of this medicine can be fatal, especially in a child or other person using the medicine without a prescription. Overdose symptoms may include nausea, vomiting, sweating, severe drowsiness, pinpoint pupils, slow breathing, or no breathing. Your doctor may recommend you get naloxone (a medicine to reverse an opioid overdose) and keep it with you at all times. A person caring for you can give the naloxone if you stop breathing or don't wake up. Your caregiver must still get emergency medical help and may need to perform CPR (cardiopulmonary resuscitation) on you while waiting for help to arrive. Anyone can buy naloxone from a pharmacy or local health department. Make sure any person caring for you knows where you keep naloxone and how to use it. What should I avoid while taking acetaminophen and oxycodone? Avoid driving or operating machinery until you know how this medicine will affect you. Dizziness or drowsiness can cause falls, accidents, or severe injuries. Do not drink alcohol. Dangerous side effects or could occur. Ask a doctor or pharmacist before using any other medicine that may contain acetaminophen (sometimes abbreviated as APAP). Taking certain medications together can lead to a fatal overdose. What are the possible side effects of acetaminophen and oxycodone? Get emergency medical help if you have signs of an allergic reaction: hives; difficulty breathing; swelling of your face, lips, tongue, or throat. Opioid medicine can slow or stop your breathing, and may occur. A person caring for you should give naloxone and/or seek emergency medical attention if you have slow breathing with long pauses, blue colored lips, or if you are hard to wake up. In rare cases, acetaminophen may cause a severe skin reaction that can be fatal. This could occur even if you have taken acetaminophen in the past and had no reaction. Stop taking this medicine and call your doctor right away if you have skin redness or a rash that spreads and causes blistering and peeling. Call your doctor at once if you have: noisy breathing, sighing, shallow breathing, breathing that stops; a light-headed feeling, like you might pass out; weakness, tiredness, fever, unusual bruising or bleeding; confusion, unusual thoughts or behavior; problems with urination; liver problems--nausea, upper stomach pain, tiredness, loss of appetite, dark urine, gaby-colored stools, jaundice (yellowing of the skin or eyes); low cortisol levels-- nausea, vomiting, loss of appetite, dizziness, worsening tiredness or weakness; or high levels of serotonin in the body--agitation, hallucinations, fever, sweating, shivering, fast heart rate, muscle stiffness, twitching, loss of coordination, nausea, vomiting, diarrhea. Serious breathing problems may be more likely in older adults and in those who are debilitated or have wasting syndrome or chronic breathing disorders. Common side effects include: dizziness, drowsiness, feeling tired; feelings of extreme happiness or sadness; nausea, vomiting, stomach pain; constipation; or headache. This is not a complete list of side effects and others may occur. Call your doctor for medical advice about side effects. You may report side effects to FDA at 0-785-YAQ-0557. What other drugs will affect acetaminophen and oxycodone? You may have breathing problems or withdrawal symptoms if you start or stop taking certain other medicines. Tell your doctor if you also use an antibiotic, antifungal medication, heart or blood pressure medication, seizure medication, or medicine to treat HIV or hepatitis C. Opioid medication can interact with many other drugs and cause dangerous side effects or . Be sure your doctor knows if you also use: cold or allergy medicines, bronchodilator asthma/COPD medication, or a diuretic ('water pill'); medicines for motion sickness, irritable bowel syndrome, or overactive bladder; other opioids--opioid pain medicine or prescription cough medicine; a sedative like Valium--diazepam, alprazolam, lorazepam, Xanax, Klonopin, Versed, and others; drugs that make you sleepy or slow your breathing--a sleeping pill, muscle relaxer, medicine to treat mood disorders or mental illness; drugs that affect serotonin levels in your body--a stimulant, or medicine for depression, Parkinson's disease, migraine headaches, serious infections, or nausea and vomiting. This list is not complete. Other drugs may affect acetaminophen and oxycodone, including prescription and icpp-han-vbjfnbb medicines, vitamins, and herbal products. Not all possible interactions are listed here. Where can I get more information? Your doctor or pharmacist can provide more information about acetaminophen and oxycodone. Remember, keep this and all other medicines out of the reach of children, never share your medicines with others, and use this medication only for the indication prescribed. Every effort has been made to ensure that the information provided by [employer]') is accurate, up-to-date, and complete, but no guarantee is made to that effect. Drug information contained herein may be time sensitive. [employer] information has been compiled for use by healthcare practitioners and consumers in the [place] and therefore [employer] does not warrant that uses outside of the [place] are appropriate, unless specifically indicated otherwise. [employer] drug information does not endorse drugs, diagnose patients or recommend therapy. [employer] drug information is an informational resource designed to assist licensed healthcare practitioners in caring for their patients and/or to serve consumers viewing this service as a supplement to, and not a substitute for, the expertise, skill, knowledge and judgment of healthcare practitioners. The absence of a warning for a given drug or drug combination in no way should be construed to indicate that the drug or drug combination is safe, effective or appropriate for any given patient. [employer] does not assume any responsibility for any aspect of healthcare administered with the aid of information [employer] provides. The information contained herein is not intended to cover all possible uses, directions, precautions, warnings, drug interactions, allergic reactions, or adverse effects. If you have questions about the drugs you are taking, check with your doctor, nurse or pharmacist. Copyright [id number] [employer]. Version: 22.. Revision Date: 06/26/2023. Education Materials Managing Post-Op Pain at Home: Medicines Pain after an operation (post-op pain) is common and expected. These guidelines can help you stay as comfortable as possible. Taking pain medicines Take medicines on time. Do not take more than prescribed. Take only the medicines that your healthcare provider tells you to take. Take pain medicines with some food to avoid an upset stomach. Don t drink alcohol while using pain medicines. Do not drive while taking opioid pain medicines. Types of pain medicines Non-opioid Pjdb-wvx-jozxzzz (such as acetaminophen and ibuprofen) or prescription All relieve mild to moderate pain and some reduce swelling Possible side effects include stomach upset and bleeding, high doses may cause kidney or liver problems Check with your healthcare provider before taking xouq-pcv-jrrwqbx pain medicines in addition to your prescribed pain medicine Opioid Always a prescription Relieve moderate to severe pain Possible side effects include stomach upset, nausea, and itching May cause constipation (to help prevent this, eat high-fiber foods and drink plenty of water) Your healthcare provider may recommend a stool softener When to call your healthcare provider Call your healthcare provider or seek immediate attention if you notice any of these symptoms: Nausea, vomiting, diarrhea, lasting constipation, or stomach cramps Breathing problems or a fast heart rate Feeling very tired, sluggish, or dizzy Skin rash [id number] The [employer]. [address] [place] [address]. All rights reserved. This information is not intended as a substitute for professional medical care. Always follow your healthcare professional's instructions. Additional Information VACCINATE! IT SAVES LIVES! Members of the community who have not yet received the COVID-19 vaccine and would like to receive it can visit one of [facility] vaccine clinics. There are many vaccine clinic locations within the [facility]. For locations and available times, please visit [email or web address] It is important to note that some COVID mobile vaccine clinics are held outdoors and may be canceled in rainy or stormy conditions. To learn more about pediatric vaccinations (ages 5-11), we invite you to visit the [facility] webpage. [email or web address] To learn more about the COVID-19 vaccine, we invite you to visit the CDC website for a list of frequently asked questions. https://www.cdc.gov/coronavirus/2 019-ncov/vaccines/faq.html [facility] Patient Portal Access Instructions: Stay connected with your healthcare team and access your personal medical information anytime with the [facility] Patient Portal. If you would like a full copy of your medical records please contact the [facility] Medical Records Department Friday through Friday between 8a.m. and 4:30p.m. Please follow the directions below to access the portal: 1.Access the email account you provided upon registration to the [facility].2.Look for an invitation email from [facility].3.Open the email and access the invitation link: Accept Invitation to [employer]4.Fill in the required ervin to create your account. Sign into [email or web address] with your username and password that you created in the above steps to stay up to date. You can then view a summary of results, a summary of your visits, and the ability to download your summaries to your computer or send the information securely to a physician. Remember that your healthcare information is confidential, so carefully consider who you will allow to register on the [facility] Patient Portal for access to your information. You can also access the [facility] Patient Portal on the [employer] aaron. Simply click on Health Records under Health Data and then click on the [facility] logo. HOW TO SAFELY DISPOSE OF PRESCRIPTION MEDICATIONS Please use one of the following methods to safely dispose of your unused medications. 1.Use a drug disposal kit: the drug disposal pouch allows you to safely discard your old and unused drugs. Ask your nurse to give you one when you are discharged.2.Visit a local take-back location: Many local pharmacies and police departments have programs that collect old and unwanted prescription drugs. Call your local pharmacy or go to http://[employer] [email or web address] Party/8C1Pv4d to find one close to you.3.Make use of household items: Use cat litter or old coffee grounds to dispose medications if other options are not available. Mix your drugs with these household products, seal them in an airtight container and throw it into the garbage. Call [facility]: [phone] to be sure your drugs can be disposed of in this way. Some medicines may require a different approach.4.Never flush your medications down the toilet. IF YOU HAVE BEEN PRESCRIBED AN OPIOIDS FOR PAIN If you have been prescribed an opioid (such as hydrocodone, oxycodone or morphine), it is critical to understand the possible side effects and risks of opioid pain medications. Even when taken as directed, opioids can have several side effects including: Tolerance, meaning you might need to take more of a medication for the same pain relief. Nausea, vomiting and/or constipation. Sleepiness, dizziness, dry mouth, confusion, depression or itching. Physical dependence, meaning you have withdrawal symptoms when a medication is stopped ? this can develop within a few days. KNOW YOUR RESPONSIBILITIES It is important to know exactly how much and how often to take the opioid pain medications you are prescribed. Never take opioids in higher amounts or more often than prescribed. Do not combine opioids with alcohol or other drugs that cause drowsiness, such as benzodiazepines, also known as benzos, including diazepam and alprazolam, muscle relaxants or sleep aids. Never sell or share prescription opioids. This is illegal. Store opioids in a secure place and out of reach of others (including children, family, friends and visitors). The last page(s) of this document has been signed and retained as a CHART COPY Signatures Patient Education Materials Managing Post-Op Pain at Home: Medicines Medication Leaflets acetaminophen and oxycodone My discharge plan and instructions have been reviewed and explained to me and I,ALMA HARRELL understand my current condition and have read and understand these discharge instructions. I have received a written copy of the plan/instructions. If I have questions, I am aware that I should contact my doctor. Patient/Informatics Spec Signature: Date/Time: Relationship to Patient: ____ Witness Name/Signature: Date/Time: [facility] 02-21-2024 Surgery Hospital Progress note Date of Service 02/21/24 Patient is POD2 from robotic cholecystectomy with Dr. Bower in [place]. She has worsening abdominal pain and chest pain today. I advised her to go to ED for evaluation if her pain is this bad. I personally reviewed her CT scan that did not show improvement in the gallbladder fossa. Patient has a slight bump in AST and ALT which is normal after cholecystectomy. Bilirubin is normal. Vital signs are all normal in the [place] [facility]. CTA was normal as well- no PE. I suspect the Exparel Dr. Bower used intra op at the port sites has worn off and that explains her abdominal pain. Recommend alternating Tylenol, Ibuprofen, Oxycodone and using heating pad or ice to help with the pain. Follow up with Dr. Bower as scheduled. Digitally Signed by ART CHICAS MD on 02/21/2024 05:44 PM [facility] 02-21-2024 Note ORIGINAL EXAMINATION: CT OF THE ABDOMEN AND PELVIS WITH CONTRAST02/21/2024 4:[address] ABDOMEN/PELVIS WITH CONTRAST TECHNIQUE: CT of the abdomen and pelvis was performed with the administration of intravenous contrast. Multiplanar reformatted images are provided for review. Automated exposure control, iterative reconstruction, and/or weight based adjustment of the mA/kV was utilized to reduce the radiation dose to as low as reasonably achievable. COMPARISON: CT abdomen pelvis December 20, 2023 HISTORY: ORDERING SYSTEM PROVIDED HISTORY: Reason for Exam: pain FINDINGS: The size, density, and morphology of the liver, spleen, adrenals, kidneys, pancreas and unopacified loops of bowel are unremarkable. The opacified aorta demonstrates normal size and morphology without aneurysmal dilation or dissection. There are no enlarged lymph nodes by pathologic size criteria. There is no free fluid within the pelvis. The bladder and pelvic organs have an unremarkable CT appearance. The osseous structures are without gross lytic or sclerotic lesion. Same-day imaging was obtained of the chest. IMPRESSION: No acute intra-abdominal intrapelvic pathology. Interpreted by: Garcia Singer MD Preliminary Report By: Garcia Singer MD Electronically signed By Garcia Singer MD Dictated Date: 02/21/2024 5:12:15 PM Prelim Date: 02/21/2024 5:20:32 PM Sign Date: 02/21/2024 5:20:32 PM Ordering Provider: FANNY DEGROOT [facility] 02-21-2024 Note ORIGINAL EXAMINATION: CTA OF THE CHEST02/21/2024 4:46 pm CTA CHEST WITH CONTRAST TECHNIQUE: CTA of the chest was performed after the administration of intravenous contrast. Multiplanar reformatted images are provided for review. MIP images are provided for review. Automated exposure control, iterative reconstruction, and/or weight based adjustment of the mA/kV was utilized to reduce the radiation dose to as low as reasonably achievable. 3-D reformats were obtained on a separate workstation. COMPARISON: CTA chest, November 18, 2021 HISTORY: ORDERING SYSTEM PROVIDED HISTORY: Reason for Exam: difficulty breathing; suspect PE FINDINGS: Thoracic inlet structures are unremarkable in appearance. No pathologically enlarged hilar or mediastinal lymph nodes. The great vessels, heart and pericardium are unremarkable in size and appearance. A few ground-glass opacities are identified within the right upper lobe. No focal infiltrate or pulmonary nodule. No pleural effusion or pneumothorax. The incidentally included portions of the upper abdomen are within normal limits. The CT angiogram portion of the examination shows adequate contrast enhancement of the pulmonary arteries. The main and segmental pulmonary arteries are of normal size. No intraluminal filling defects are seen through the level of the segmental pulmonary arteries and opacified subsegmental pulmonary arteries. IMPRESSION: 1. No evidence of pulmonary embolus. 2. Ground-glass opacities in the right upper lobe are nonspecific and may be due to infectious or inflammatory etiology.. Interpreted by: Garcia Singer MD Preliminary Report By: Garcia Singer MD Electronically signed By Garcia Singer MD Dictated Date: 02/21/2024 5:11:08 PM Prelim Date: 02/21/2024 5:12:07 PM Sign Date: 02/21/2024 5:12:07 PM Ordering Provider: FANNY DEGROOT [facility] 02-21-2024 Note Sinus rhythm Low voltage, precordial leads Borderline T abnormalities, anterior leads Electronic Signature: SUBHA CHAMBERS DO 02/21/2024 15:57:12 [facility] 02-19-2024 Hospital Discharge instructions Patient Education 02/19/2024 12:27:02 How to Use an Incentive Spirometer How To Use an Incentive Spirometer An incentive spirometer is a tool that measures how well you are filling your lungs with each breath. Learning to take long, deep breaths using this tool can help you keep your lungs clear and active. This may help to reverse or lessen your chance of developing breathing (pulmonary) problems, especially infection. You may be asked to use a spirometer: After a surgery. If you have a lung problem or a history of smoking. After a long period of time when you have been unable to move or be active. If the spirometer includes an indicator to show the highest number that you have reached, your health care provider or respiratory therapist will help you set a goal. Keep a list (log) of your progress as told by your health care provider. What are the risks? Breathing too quickly may cause dizziness or cause you to pass out. Take your time so you do not get dizzy or light-headed. If you are in pain, you may need to take pain medicine before doing incentive spirometry. It is harder to take a deep breath if you are having pain. How to use your incentive spirometer 1.Sit up on the edge of your bed or on a chair. 2.Hold the incentive spirometer so that it is in an upright position. 3.Before you use the spirometer, breathe out normally. 4.Place the mouthpiece in your mouth. Make sure your lips are closed tightly around it. 5.Breathe in slowly and as deeply as you can through your mouth, causing the piston or the ball to rise toward the top of the chamber. 6.Hold your breath for 3 5 seconds, or for as long as possible. If the spirometer includes a middle school baseball coach indicator, use this to guide you in breathing. Slow down your breathing if the indicator goes above the marked areas. 7.Remove the mouthpiece from your mouth and breathe out normally. The piston or ball will return to the bottom of the chamber. 8.Rest for a few seconds, then repeat the steps 10 or more times. Take your time and take a few normal breaths between deep breaths so that you do not get dizzy or light-headed. Do this every 1 2 hours when you are awake. 9.If the spirometer includes a goal marker to show the highest number you have reached (best effort), use this as a goal to work toward during each repetition. 10.After each set of 10 deep breaths, cough a few times. This will help to make sure that your lungs are clear. If you have an incision on your chest or abdomen from surgery, place a pillow or a rolled-up towel firmly against the incision when you cough. This can help to reduce pain from coughing. General tips When you become able to get out of bed, walk around often and continue to cough to help clear your lungs. Keep using the incentive spirometer until your health care provider says it is okay to stop using it. If you have been in the hospital, you may be told to keep using the spirometer at home. Contact a health care provider if: You are having difficulty using the spirometer. You have trouble using the spirometer as often as instructed. Your pain medicine is not giving enough relief for you to use the spirometer as told. You have a fever. You develop shortness of breath. Get help right away if: You develop a cough with bloody mucus from the lungs (bloody sputum). You have fluid or blood coming from an incision site after you cough. Summary An incentive spirometer is a tool that can help you learn to take long, deep breaths to keep your lungs clear and active. You may be asked to use a spirometer after a surgery, if you have a lung problem or a history of smoking, or if you have been inactive for a long period of time. Use your incentive spirometer as instructed every 1 2 hours while you are awake. If you have an incision on your chest or abdomen, place a pillow or a rolled-up towel firmly against your incision when you cough. This will help to reduce pain. This information is not intended to replace advice given to you by your health care provider. Make sure you discuss any questions you have with your health care provider. Document Released: 03/22/2008 Document Revised: 12/03/2018 Document Reviewed: 09/23/2018 [facility] Patient Education 2020 [employer]. 02/19/2024 12:26:32 General Anesthesia, Adult, Care After General Anesthesia, Adult, Care After This sheet gives you information about how to care for yourself after your procedure. Your health care provider may also give you more specific instructions. If you have problems or questions, contact your health care provider. What can I expect after the procedure? After the procedure, the following side effects are common: Pain or discomfort at the IV site. Nausea. Vomiting. Sore throat. Trouble concentrating. Feeling cold or chills. Weak or tired. Sleepiness and fatigue. Soreness and body aches. These side effects can affect parts of the body that were not involved in surgery. Follow these instructions at home: For at least 24 hours after the procedure: Have a responsible adult stay with you. It is important to have someone help care for you until you are awake and alert. Rest as needed. Do not: ?Participate in activities in which you could fall or become injured. ?Drive. ?Use heavy machinery. ?Drink alcohol. ?Take sleeping pills or medicines that cause drowsiness. ?Make important decisions or sign legal documents. ?Take care of children on your own. Eating and drinking Follow any instructions from your health care provider about eating or drinking restrictions. When you feel hungry, start by eating small amounts of foods that are soft and easy to digest (bland), such as toast. Gradually return to your regular diet. Drink enough fluid to keep your urine pale yellow. If you vomit, rehydrate by drinking water, juice, or clear broth. General instructions If you have sleep apnea, surgery and certain medicines can increase your risk for breathing problems. Follow instructions from your health care provider about wearing your sleep device: ?Anytime you are sleeping, including during daytime naps. ?While taking prescription pain medicines, sleeping medicines, or medicines that make you drowsy. Return to your normal activities as told by your health care provider. Ask your health care provider what activities are safe for you. Take xeac-aup-jezphvd and prescription medicines only as told by your health care provider. If you smoke, do not smoke without supervision. Keep all follow-up visits as told by your health care provider. This is important. Contact a health care provider if: You have nausea or vomiting that does not get better with medicine. You cannot eat or drink without vomiting. You have pain that does not get better with medicine. You are unable to pass urine. You develop a skin rash. You have a fever. You have redness around your IV site that gets worse. Get help right away if: You have difficulty breathing. You have chest pain. You have blood in your urine or stool, or you vomit blood. Summary After the procedure, it is common to have a sore throat or nausea. It is also common to feel tired. Have a responsible adult stay with you for the first 24 hours after general anesthesia. It is important to have someone help care for you until you are awake and alert. When you feel hungry, start by eating small amounts of foods that are soft and easy to digest (bland), such as toast. Gradually return to your regular diet. Drink enough fluid to keep your urine pale yellow. Return to your normal activities as told by your health care provider. Ask your health care provider what activities are safe for you. This information is not intended to replace advice given to you by your health care provider. Make sure you discuss any questions you have with your health care provider. Document Released: 02/16/2002 Document Revised: 11/13/2018 Document Reviewed: 06/26/2018 [facility] Patient Education 2020 [employer]. 02/19/2024 12:26:26 How to Use Cold Therapy, Lbsj-zk-Zbex How to Use Cold Therapy Cold therapy, or cryotherapy, is a treatment that uses cold temperatures to treat an injury or medical condition. It includes using cold packs or ice packs to reduce pain and swelling. Only use cold therapy if your doctor says it is okay. What are the risks? Generally, cold therapy is a safe treatment. However, it is not safe for: People who are not able to say they are in pain. These include small children and people who have memory problems. People who have certain conditions, such as: ?A problem in the vessels that slows blood flow to the fingers and toes (Raynaud's syndrome). ?Feeling very cold easily (cold hypersensitivity). ?Lack of feeling in the area being iced. Cold therapy may not be safe for people who have other conditions. Do not use it without talking to your doctor if you have: A heart condition. High blood pressure. Open or healing wounds. An infection. Pain and swelling in your joints (rheumatoid arthritis). Poor blood flow in the body. Diabetes. Certain skin conditions. How can I make a cold pack? When using a cold pack at home to reduce pain and swelling, you can use: A silica gel cold pack that has been left in the freezer. You can buy this online or in stores. A sealable plastic bag that has been filled with crushed ice. A washcloth or paper towels soaked in cold (or ice) water. A plastic bag of frozen vegetables. Throw them away when you are finished using them as a cold pack. Supplies needed: A cold pack. A towel. This can be dry or damp, based on what you like. How to use cold therapy 1.Have your cold pack ready. 2.Place a towel between the cold pack and your skin. You may also wrap the cold pack in a towel. 3.Put the cold pack on the affected area. Keep it on for no more than 20 minutes at a time. 4.Check your skin after 5 minutes to make sure that there is no damage to the area. Check for: White spots on your skin. Your skin may look blotchy or mottled. Skin that looks blue or pale. Skin that feels waxy or hard. 5.Repeat these steps as many times each day as told by your doctor. Always use a towel to avoid direct contact with your skin. Contact a doctor if: You start to have white spots on your skin. This may give your skin a blotchy or mottled look. Your skin turns blue or pale. Your skin becomes waxy or hard. Your swelling gets worse. Summary Cold therapy, or cryotherapy, is used to treat an injury or other conditions. It includes using cold packs or ice packs to reduce pain and swelling. Cold therapy is not safe for people who are not able to say they are in pain. When using cold packs or ice packs, always place a towel between the cold source and your skin. Check your skin after 5 minutes of icing it. This is to make sure that there is no skin damage. Contact your doctor if you notice changes in your skin or your swelling gets worse. This information is not intended to replace advice given to you by your health care provider. Make sure you discuss any questions you have with your health care provider. Document Released: 04/28/2009 Document Revised: 08/09/2019 Document Reviewed: 08/09/2019 [facility] Patient Education 2020 [facility] 02/19/2024 12:26:19 How to Use Compression Stockings How to Use Compression Stockings Compression stockings are elastic socks that squeeze the legs. They help increase blood flow (circulation) to the legs, decrease swelling in the legs, and reduce the chance of developing blood clots in the lower legs. Compression stockings are often used by people who: Are recovering from surgery. Have poor circulation in their legs. Tend to get blood clots in their legs. Have bulging (varicose) veins. Sit or stay in bed for long periods of time. Follow instructions from your health care provider about how and when to wear your compression stockings. How to wear compression stockings Before you put on your compression stockings: Make sure that they are the correct size and degree of compression. If you do not know your size or required grade of compression, ask your health care provider and follow the players club representative's instructions that come with the stockings. Make sure that they are clean, dry, and in good condition. Check them for rips and tears. Do not put them on if they are ripped or torn. Put your stockings on first thing in the morning, before you get out of bed. Keep them on for as long as your health care provider advises. When you are wearing your stockings: Keep them as smooth as possible. Do not allow them to bunch up. It is especially important to prevent the stockings from bunching up around your toes or behind your knees. Do not roll the stockings downward and leave them rolled down. This can decrease blood flow to your leg. Change them right away if they become wet or dirty. When you take off your stockings, inspect your legs and feet. Check for: Open sores. Red spots. Swelling. General tips Do not stop wearing compression stockings without talking to your health care provider first. Wash your stockings every day with mild detergent in cold or warm water. Do not use bleach. Air-dry your stockings or dry them in a clothes dryer on low heat. It may be helpful to have two pairs so that you have a pair to wear while the other is being washed. Replace your stockings every 3 6 months. If skin moisturizing is part of your treatment plan, apply lotion or cream at night so that your skin will be dry when you put on the stockings in the morning. It is harder to put the stockings on when you have lotion on your legs or feet. Wear nonskid shoes or slip-resistant socks when walking while wearing compression stockings. Contact a health care provider and remove your stockings if you have: A feeling of pins and needles in your feet or legs. Open sores, red spots, or other skin changes on your feet or legs. Swelling or pain that gets worse. Get help right away if you have: Numbness or tingling in your lower legs that does not get better right after you take the stockings off. Toes or feet that are unusually cold or turn a bluish color. A warm or red area on your leg. New swelling or soreness in your leg. Shortness of breath. Chest pain. A fast or irregular heartbeat. Light-headedness. Dizziness. Summary Compression stockings are elastic socks that squeeze the legs. They help increase blood flow (circulation) to the legs, decrease swelling in the legs, and reduce the chance of developing blood clots in the lower legs. Follow instructions from your health care provider about how and when to wear your compression stockings. Do not stop wearing your compression stockings without talking to your health care provider first. This information is not intended to replace advice given to you by your health care provider. Make sure you discuss any questions you have with your health care provider. Document Released: 09/07/2010 Document Revised: 11/12/2018 Document Reviewed: 11/12/2018 [facility] Patient Education 2020 [employer]. 02/19/2024 12:26:13 Nausea and Vomiting, Adult, Gieb-kw-Ajpc Nausea and Vomiting, Adult Nausea is feeling sick to your stomach or feeling that you are about to throw up (vomit). Vomiting is when food in your stomach is thrown up and out of the mouth. Throwing up can make you feel weak. It can also make you lose too much water in your body (get dehydrated). If you lose too much water in your body, you may: Feel tired. Feel thirsty. Have a dry mouth. Have cracked lips. Go pee (urinate) less often. Older adults and people with other diseases or a weak body defense system (immune system) are at higher risk for losing too much water in the body. If you feel sick to your stomach and you throw up, it is important to follow instructions from your doctor about how to take care of yourself. Follow these instructions at home: Watch your symptoms for any changes. Tell your doctor about them. Follow these instructions to care for yourself at home. Eating and drinking Take an ORS (oral rehydration solution). This is a drink that is sold at pharmacies and stores. Drink clear fluids in small amounts as you are able, such as: ?Water. ?Ice chips. ?Fruit juice that has water added (diluted fruit juice). ?Low-calorie sports drinks. Eat bland, huga-iz-vrsbpc foods in small amounts as you are able, such as: ?Bananas. ?Applesauce. ?Rice. ?Low-fat (lean) meats. ?[place]. ?Crackers. Avoid drinking fluids that have a lot of sugar or caffeine in them. This includes energy drinks, sports drinks, and soda. Avoid alcohol. Avoid spicy or fatty foods. General instructions Take inor-tdf-piizccc and prescription medicines only as told by your doctor. Drink enough fluid to keep your pee (urine) pale yellow. Wash your hands often with soap and water. If you cannot use soap and water, use hand hand laminator. Make sure that all people in your home wash their hands well and often. Rest at home while you get better. Watch your condition for any changes. Take slow and deep breaths when you feel sick to your stomach. Keep all follow-up visits as told by your doctor. This is important. Contact a doctor if: Your symptoms get worse. You have new symptoms. You have a fever. You cannot drink fluids without throwing up. You feel sick to your stomach for more than 2 days. You feel light-headed or dizzy. You have a headache. You have muscle cramps. You have a rash. You have pain while peeing. Get help right away if: You have pain in your chest, neck, arm, or jaw. You feel very weak or you pass out (faint). You throw up again and again. You have throw up that is bright red or looks like black coffee grounds. You have bloody or black poop (stools) or poop that looks like tar. You have a very bad headache, a stiff neck, or both. You have very bad pain, cramping, or bloating in your belly (abdomen). You have trouble breathing. You are breathing very quickly. Your heart is beating very quickly. Your skin feels cold and clammy. You feel confused. You have signs of losing too much water in your body, such as: ?Dark pee, very little pee, or no pee. ?Cracked lips. ?Dry mouth. ?Sunken eyes. ?Sleepiness. ?Weakness. These symptoms may be an emergency. Do not wait to see if the symptoms will go away. Get medical help right away. Call your local emergency services (911 in the [place] Do not drive yourself to the hospital. Summary Nausea is feeling sick to your stomach or feeling that you are about to throw up (vomit). Vomiting is when food in your stomach is thrown up and out of the mouth. Follow instructions from your doctor about eating and drinking to keep from losing too much water in your body. Take hsgi-dey-heelihe and prescription medicines only as told by your doctor. Contact your doctor if your symptoms get worse or you have new symptoms. Keep all follow-up visits as told by your doctor. This is important. This information is not intended to replace advice given to you by your health care provider. Make sure you discuss any questions you have with your health care provider. Document Released: 04/28/2009 Document Revised: 03/03/2020 Document Reviewed: 04/20/2019 [facility] Patient Education 2020 [employer]. 02/19/2024 12:26:07 Laparoscopic Cholecystectomy, Care After, Hxjb-fi-Lbhd Laparoscopic Cholecystectomy, Care After This sheet gives you information about how to care for yourself after your procedure. Your doctor may also give you more specific instructions. If you have problems or questions, contact your doctor. Follow these instructions at home: Care for cuts from surgery (incisions) Follow instructions from your doctor about how to take care of your cuts from surgery. Make sure you: ?Wash your hands with soap and water before you change your bandage (dressing). If you cannot use soap and water, use hand hand laminator. ?Change your bandage as told by your doctor. ?Leave stitches (sutures), skin glue, or skin tape (adhesive) strips in place. They may need to stay in place for 2 weeks or longer. If tape strips get loose and curl up, you may trim the loose edges. Do not remove tape strips completely unless your doctor says it is okay. Do not take baths, swim, or use a hot tub until your doctor says it is okay. Ask your doctor if you can take showers. You may only be allowed to take sponge baths for bathing. Check your surgical cut area every day for signs of infection. Check for: ?More redness, swelling, or pain. ?More fluid or blood. ?Warmth. ?Pus or a bad smell. Activity Do not drive or use heavy machinery while taking prescription pain medicine. Do not lift anything that is heavier than 10 lb (4.5 kg) until your doctor says it is okay. Do not play contact sports until your doctor says it is okay. Do not drive for 24 hours if you were given a medicine to help you relax (sedative). Rest as needed. Do not return to work or school until your doctor says it is okay. General instructions Take idka-mui-ntkfcpo and prescription medicines only as told by your doctor. To prevent or treat constipation while you are taking prescription pain medicine, your doctor may recommend that you: ?Drink enough fluid to keep your pee (urine) clear or pale yellow. ?Take bmly-jxd-dryypmb or prescription medicines. ?Eat foods that are high in fiber, such as fresh fruits and vegetables, whole grains, and beans. ?Limit foods that are high in fat and processed sugars, such as fried and sweet foods. Contact a doctor if: You develop a rash. You have more redness, swelling, or pain around your surgical cuts. You have more fluid or blood coming from your surgical cuts. Your surgical cuts feel warm to the touch. You have pus or a bad smell coming from your surgical cuts. You have a fever. One or more of your surgical cuts breaks open. Get help right away if: You have trouble breathing. You have chest pain. You have pain that is getting worse in your shoulders. You faint or feel dizzy when you stand. You have very bad pain in your belly (abdomen). You are sick to your stomach (nauseous) for more than one day. You have throwing up (vomiting) that lasts for more than one day. You have leg pain. This information is not intended to replace advice given to you by your health care provider. Make sure you discuss any questions you have with your health care provider. Document Released: 08/19/2009 Document Revised: 10/23/2018 Document Reviewed: 04/28/2017 [facility] Patient Education 2020 [employer]. Follow Up Care 02/03/2024 11:38:07 With:MARIPOSA BOWER MD, Surgery Address: [address] [facility] [place] [address] [phone] When: Unknown Comments:CALL DR BOWER'S OFFICE WITH ANY QUESTIONS OR CONCERNS AND TO MAKE A 2 WEEK FOLLOW UP APPOINTMENT. GO TO THE EMERGENCY ROOM WITH ANY URGENT CONCERNS. [facility] 02-19-2024 Note Discharge Instructions Thank you for allowing [facility] to assist you with your healthcare needs. The following is important discharge information regarding your hospital visit. 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 MARIPOSA BOWER Your Diagnosis Acute post-operative pain What to do next Follow Up Appointments Follow Up with MARIPOSA BOWER MD, Surgery When Why: CALL DR BOWER'S OFFICE WITH ANY QUESTIONS OR CONCERNS AND TO MAKE A 2 WEEK FOLLOW UP APPOINTMENT. GO TO THE EMERGENCY ROOM WITH ANY URGENT CONCERNS. Where: [address] [facility] [place] [address]- [phone] The Following Activity and Diet Have Been Ordered for You Discharge Activity - Ordered -- Sexual [place] Restricted No bending, twisting, crawling or squatt, No shower or tub bath for 2 days; no driving for 5 days, no lifting >15 lbs, 02/19/24 11:53:00 EDT Discharge Diet - Ordered -- Follow the post-operative/post-procedure diet instructions provided by your physician's office., 02/19/24 11:53:00 EDT The Following Equipment Has Been Ordered for You Discharge Home Equipment Discharge Wound Care - Ordered -- Dressing Type: Dry sterile drsg, Remove dressing in two (2) days. Leave steristrips on until they fall off, 02/19/24 11:53:00 EDT Allergies NKA Medications Please ask your primary doctor or pharmacist before taking any other medication not listed, including over the counter drugs, herbal medications, vitamins and or supplements as they may interact with your home medications. What How Much When Why Instructions Last Dose New acetaminophen-hydrocodone (Sigel 325- 5 mg oral tablet) 1 tab(s) by mouth Every 4 hours as needed for Pain, scale 1-6 Acute post-operative pain Duration: 5 Days Pickup at [facility]/pharmacy #[id number] Unchanged ondansetron (ondansetron 4 mg oral tablet, disintegrating) Pharmacy Information [facility]/pharmacy #[id number]: [address], [place] [id number] [phone] Please take this list to your next doctor s visit. Bring all medications you take, including over the counter medications, herbals and other supplements with you to your doctor s visit. Patients and families are reminded to discard old lists and to update any records with all medication providers or retail pharmacies. Medication Leaflets bupivacaine liposome (amara flaherty) Exparel What is the most important information I should know about bupivacaine liposome? You may still feel numb or be unable to move the numbed area for up to 5 days after you are treated with bupivacaine liposome. What is bupivacaine liposome? Bupivacaine is an anesthetic (numbing medicine) that blocks nerve impulses in your body. Bupivacaine liposome is used as a local (in only one area) anesthetic to numb an area of your body for a minor surgery such as bunion removal or hemorrhoid surgery. Bupivacine liposome is also used as a nerve block after surgery on your shoulder or upper arm, to provide pain relief to the area. Bupivacaine may also be used for purposes not listed in this medication guide. What should I discuss with my healthcare provider before receiving bupivacaine liposome? You should not be treated with bupivacaine if you are allergic to it. Tell your doctor if you have ever had: an allergic reaction to any type of numbing medicine; liver disease; kidney disease; heart disease; a heart rhythm disorder; or seizures. It is not known whether this medicine will harm an unborn baby. Tell your doctor if you are . It may not be safe to breast-feed a baby while you are using this medicine. Ask your doctor about any risks. How is bupivacaine liposome given? Bupivacaine is given as an injection placed into an area near your surgical incision. You will receive this injection in a hospital or surgical setting. Bupivacaine liposome can have long-lasting or delayed effects. For at least 4 days (96 hours) after your surgery, tell any doctor or dentist who treats you that you recently received a bupivacaine liposome injection. Call your doctor if you have joint pain or stiffness, or weakness in any part of your body that occurs after your surgery, even months later. What happens if I miss a dose? Since bupivacaine liposome is used as a single dose, it does not have a daily dosing schedule. What happens if I overdose? Since this medication is given by a healthcare professional in a medical setting, an overdose is unlikely to occur. What should I avoid after receiving bupivacaine liposome? For at least 4 days (96 hours) after surgery, avoid using any pain or numbing medicines that contain lidocaine. This includes skin patches, sprays, creams, ointments, or gels applied to the skin. Follow your doctor's instructions. What are the possible side effects of bupivacaine liposome? Get emergency medical help if you have signs of an allergic reaction: hives, red rash, itching; sneezing, difficulty breathing; severe dizziness, vomiting; swelling of your face, lips, tongue, or throat. You will be watched closely after receiving bupivacaine liposome, to make sure you do not have a reaction to the medicine. Tell your caregivers at once if you have any of these signs of a serious side effect: ringing in your ears; drowsiness, feeling restless or anxious; feeling like you might pass out; speech or vision problems, a metallic taste in your mouth; numbness or tingling around your mouth; fast or slow heart rate, feeling short of breath, feeling unusually hot or cold; tremors, twitching, mood changes; ongoing numbness, weakness, or loss of movement where the medicine was injected; or joint pain or stiffness, or weakness in any part of your body for months after your surgery. You may still feel numb or be unable to move the numbed area for up to 5 days after you are treated with bupivacaine liposome. Common side effects include: nausea, vomiting; constipation; or fever. This is not a complete list of side effects and others may occur. Call your doctor for medical advice about side effects. You may report side effects to FDA at 7-321-RZX-4618. What other drugs will affect bupivacaine liposome? Other drugs may affect bupivacaine liposome, including prescription and vvzc-aia-ftkomaa medicines, vitamins, and herbal products. Tell your doctor about all your current medicines and any medicine you start or stop using. Where can I get more information? Your doctor or pharmacist can provide more information about bupivacaine liposome. Remember, keep this and all other medicines out of the reach of children, never share your medicines with others, and use this medication only for the indication prescribed. Every effort has been made to ensure that the information provided by [employer]') is accurate, up-to-date, and complete, but no guarantee is made to that effect. Drug information contained herein may be time sensitive. [employer] information has been compiled for use by healthcare practitioners and consumers in the [place] and therefore [employer] does not warrant that uses outside of the [place] are appropriate, unless specifically indicated otherwise. [employer]'s drug information does not endorse drugs, diagnose patients or recommend therapy. [employer] drug information is an informational resource designed to assist licensed healthcare practitioners in caring for their patients and/or to serve consumers viewing this service as a supplement to, and not a substitute for, the expertise, skill, knowledge and judgment of healthcare practitioners. The absence of a warning for a given drug or drug combination in no way should be construed to indicate that the drug or drug combination is safe, effective or appropriate for any given patient. [facility] does not assume any responsibility for any aspect of healthcare administered with the aid of information [employer] provides. The information contained herein is not intended to cover all possible uses, directions, precautions, warnings, drug interactions, allergic reactions, or adverse effects. If you have questions about the drugs you are taking, check with your doctor, nurse or pharmacist. Copyright 0250-5907 [employer]. Version: 4.01. Revision Date: 03/16/2018. acetaminophen and hydrocodone (a SEET a MIN oh fen and blade CASTILLO done) Lortab Elixir, Verdrocet What is the most important information I should know about acetaminophen and hydrocodone? MISUSE OF OPIOID MEDICINE CAN CAUSE ADDICTION, OVERDOSE, OR . Keep the medication in a place where others cannot get to it. Taking opioid medicine during may cause life-threatening withdrawal symptoms in the . Fatal side effects can occur if you use opioid medicine with alcohol, or with other drugs that cause drowsiness or slow your breathing. Stop taking this medicine and call your doctor right away if you have skin redness or a rash that spreads and causes blistering and peeling. What is acetaminophen and hydrocodone? Acetaminophen and hydrocodone is a combination medicine used to relieve moderate to severe pain. Acetaminophen and hydrocodone contains an opioid medicine, and may be habit-forming. Acetaminophen and hydrocodone may also be used for purposes not listed in this medication guide. What should I discuss with my healthcare provider before taking acetaminophen and hydrocodone? You should not use this medicine if you are allergic to acetaminophen or hydrocodone, or if you have: severe asthma or breathing problems; or a blockage in your stomach or intestines. Tell your doctor if you have ever had: breathing problems, sleep apnea (breathing stops during sleep); liver disease; a drug or alcohol addiction; kidney disease; a head injury or seizures; urination problems; or problems with your thyroid, pancreas, or gallbladder. If you use opioid medicine while you are , your baby could become dependent on the drug. This can cause life-threatening withdrawal symptoms in the baby after it is born. Babies born dependent on opioids may need medical treatment for several weeks. Ask a doctor before using opioid medicine if you are . Tell your doctor if you notice severe drowsiness or slow breathing in the nursing baby. How should I take acetaminophen and hydrocodone? Follow all directions on your prescription label. Never take this medicine in larger amounts, or for longer than prescribed. An overdose can damage your liver or cause . Tell your doctor if you feel an increased urge to use more of this medicine. Never share this medicine with another person, especially someone with a history of drug abuse or addiction. MISUSE CAN CAUSE ADDICTION, OVERDOSE, OR . Keep the medicine in a place where others cannot get to it. Selling or giving away this medicine is against the law. Measure liquid medicine carefully. Use the dosing syringe provided, or use a medicine dose-measuring device (not a kitchen spoon). If you need surgery or medical tests, tell the doctor ahead of time that you are using this medicine. You should not stop using this medicine suddenly. Follow your doctor's instructions about tapering your dose. Store at room temperature away from moisture and heat. Keep track of your medicine. You should be aware if anyone is using it improperly or without a prescription. Do not keep leftover opioid medication. Just one dose can cause in someone using this medicine accidentally or improperly. Ask your pharmacist where to locate a drug take-back disposal program. If there is no take-back program, flush the unused medicine down the toilet. What happens if I miss a dose? Since this medicine is used for pain, you are not likely to miss a dose. Skip any missed dose if it is almost time for your next dose. Do not use two doses at one time. What happens if I overdose? Seek emergency medical attention or call the Poison Help line at . An overdose of this medicine can be fatal, especially in a child or other person using the medicine without a prescription. Overdose symptoms may include nausea, vomiting, sweating, severe drowsiness, pinpoint pupils, slow breathing, or no breathing. Your doctor may recommend you get naloxone (a medicine to reverse an opioid overdose) and keep it with you at all times. A person caring for you can give the naloxone if you stop breathing or don't wake up. Your caregiver must still get emergency medical help and may need to perform CPR (cardiopulmonary resuscitation) on you while waiting for help to arrive. Anyone can buy naloxone from a pharmacy or local health department. Make sure any person caring for you knows where you keep naloxone and how to use it. What should I avoid while taking acetaminophen and hydrocodone? Avoid driving or operating machinery until you know how this medicine will affect you. Dizziness or drowsiness can cause falls, accidents, or severe injuries. Do not drink alcohol. Dangerous side effects or could occur. Ask a doctor or pharmacist before using any other medicine that may contain acetaminophen (sometimes abbreviated as APAP). Taking certain medications together can lead to a fatal overdose. What are the possible side effects of acetaminophen and hydrocodone? Get emergency medical help if you have signs of an allergic reaction: hives; difficulty breathing; swelling of your face, lips, tongue, or throat. Opioid medicine can slow or stop your breathing, and may occur. A person caring for you should give naloxone and/or seek emergency medical attention if you have slow breathing with long pauses, blue colored lips, or if you are hard to wake up. In rare cases, acetaminophen may cause a severe skin reaction that can be fatal. This could occur even if you have taken acetaminophen in the past and had no reaction. Stop taking this medicine and call your doctor right away if you have skin redness or a rash that spreads and causes blistering and peeling. Call your doctor at once if you have: noisy breathing, sighing, shallow breathing, breathing that stops; a light-headed feeling, like you might pass out; liver problems--nausea, upper stomach pain, tiredness, loss of appetite, dark urine, gaby-colored stools, jaundice (yellowing of the skin or eyes); low cortisol levels-- nausea, vomiting, loss of appetite, dizziness, worsening tiredness or weakness; o high levels of serotonin in the body--agitation, hallucinations, fever, sweating, shivering, fast heart rate, muscle stiffness, twitching, loss of coordination, nausea, vomiting, diarrhea. Serious breathing problems may be more likely in older adults and in those who are debilitated or have wasting syndrome or chronic breathing disorders. Common side effects include: dizziness, drowsiness, feeling tired; nausea, vomiting, stomach pain; constipation; or headache. This is not a complete list of side effects and others may occur. Call your doctor for medical advice about side effects. You may report side effects to FDA at 7-638-GZK-7691. What other drugs will affect acetaminophen and hydrocodone? You may have breathing problems or withdrawal symptoms if you start or stop taking certain other medicines. Tell your doctor if you also use an antibiotic, antifungal medication, heart or blood pressure medication, seizure medication, or medicine to treat HIV or hepatitis C. Opioid medication can interact with many other drugs and cause dangerous side effects or . Be sure your doctor knows if you also use: cold or allergy medicines, bronchodilator asthma/COPD medication, or a diuretic ('water pill'); medicines for motion sickness, irritable bowel syndrome, or overactive bladder; other opioids--opioid pain medicine or prescription cough medicine; a sedative like Valium--diazepam, alprazolam, lorazepam, Xanax, Klonopin, Versed, and others; drugs that make you sleepy or slow your breathing--a sleeping pill, muscle relaxer, medicine to treat mood disorders or mental illness; drugs that affect serotonin levels in your body--a stimulant, or medicine for depression, Parkinson's disease, migraine headaches, serious infections, or nausea and vomiting. This list is not complete. Other drugs may affect acetaminophen and hydrocodone, including prescription and wvfz-whb-qqoonwh medicines, vitamins, and herbal products. Not all possible interactions are listed here. Where can I get more information? Your doctor or pharmacist can provide more information about acetaminophen and hydrocodone. Remember, keep this and all other medicines out of the reach of children, never share your medicines with others, and use this medication only for the indication prescribed. Every effort has been made to ensure that the information provided by [employer] ('[employer]') is accurate, up-to-date, and complete, but no guarantee is made to that effect. Drug information contained herein may be time sensitive. [employer] information has been compiled for use by healthcare practitioners and consumers in the [place] and therefore [employer] does not warrant that uses outside of the [place] are appropriate, unless specifically indicated otherwise. [employer]'s drug information does not endorse drugs, diagnose patients or recommend therapy. [facility] drug information is an informational resource designed to assist licensed healthcare practitioners in caring for their patients and/or to serve consumers viewing this service as a supplement to, and not a substitute for, the expertise, skill, knowledge and judgment of healthcare practitioners. The absence of a warning for a given drug or drug combination in no way should be construed to indicate that the drug or drug combination is safe, effective or appropriate for any given patient. [facility] does not assume any responsibility for any aspect of healthcare administered with the aid of information [facility] provides. The information contained herein is not intended to cover all possible uses, directions, precautions, warnings, drug interactions, allergic reactions, or adverse effects. If you have questions about the drugs you are taking, check with your doctor, nurse or pharmacist. Copyright 2971-8323 [employer]. Version: 19.. Revision Date: 07/14/2023. Education Materials How To Use an Incentive Spirometer An incentive spirometer is a tool that measures how well you are filling your lungs with each breath. Learning to take long, deep breaths using this tool can help you keep your lungs clear and active. This may help to reverse or lessen your chance of developing breathing (pulmonary) problems, especially infection. You may be asked to use a spirometer: After a surgery. If you have a lung problem or a history of smoking. After a long period of time when you have been unable to move or be active. If the spirometer includes an indicator to show the highest number that you have reached, your health care provider or respiratory therapist will help you set a goal. Keep a list (log) of your progress as told by your health care provider. What are the risks? Breathing too quickly may cause dizziness or cause you to pass out. Take your time so you do not get dizzy or light-headed. If you are in pain, you may need to take pain medicine before doing incentive spirometry. It is harder to take a deep breath if you are having pain. How to use your incentive spirometer 1. Sit up on the edge of your bed or on a chair. 2. Hold the incentive spirometer so that it is in an upright position. 3. Before you use the spirometer, breathe out normally. 4. Place the mouthpiece in your mouth. Make sure your lips are closed tightly around it. 5. Breathe in slowly and as deeply as you can through your mouth, causing the piston or the ball to rise toward the top of the chamber. 6. Hold your breath for 3 5 seconds, or for as long as possible. If the spirometer includes a middle school baseball coach indicator, use this to guide you in breathing. Slow down your breathing if the indicator goes above the marked areas. 7. Remove the mouthpiece from your mouth and breathe out normally. The piston or ball will return to the bottom of the chamber. 8. Rest for a few seconds, then repeat the steps 10 or more times. Take your time and take a few normal breaths between deep breaths so that you do not get dizzy or light-headed. Do this every 1 2 hours when you are awake. 9. If the spirometer includes a goal marker to show the highest number you have reached (best effort), use this as a goal to work toward during each repetition. 10. After each set of 10 deep breaths, cough a few times. This will help to make sure that your lungs are clear. If you have an incision on your chest or abdomen from surgery, place a pillow or a rolled-up towel firmly against the incision when you cough. This can help to reduce pain from coughing. General tips When you become able to get out of bed, walk around often and continue to cough to help clear your lungs. Keep using the incentive spirometer until your health care provider says it is okay to stop using it. If you have been in the hospital, you may be told to keep using the spirometer at home. Contact a health care provider if: You are having difficulty using the spirometer. You have trouble using the spirometer as often as instructed. Your pain medicine is not giving enough relief for you to use the spirometer as told. You have a fever. You develop shortness of breath. Get help right away if: You develop a cough with bloody mucus from the lungs (bloody sputum). You have fluid or blood coming from an incision site after you cough. Summary An incentive spirometer is a tool that can help you learn to take long, deep breaths to keep your lungs clear and active. You may be asked to use a spirometer after a surgery, if you have a lung problem or a history of smoking, or if you have been inactive for a long period of time. Use your incentive spirometer as instructed every 1 2 hours while you are awake. If you have an incision on your chest or abdomen, place a pillow or a rolled-up towel firmly against your incision when you cough. This will help to reduce pain. This information is not intended to replace advice given to you by your health care provider. Make sure you discuss any questions you have with your health care provider. Document Released: 03/22/2008 Document Revised: 12/03/2018 Document Reviewed: 09/23/2018 [facility] Patient Education 2020 [employer]. General Anesthesia, Adult, Care After This sheet gives you information about how to care for yourself after your procedure. Your health care provider may also give you more specific instructions. If you have problems or questions, contact your health care provider. What can I expect after the procedure? After the procedure, the following side effects are common: Pain or discomfort at the IV site. Nausea. Vomiting. Sore throat. Trouble concentrating. Feeling cold or chills. Weak or tired. Sleepiness and fatigue. Soreness and body aches. These side effects can affect parts of the body that were not involved in surgery. Follow these instructions at home: For at least 24 hours after the procedure: Have a responsible adult stay with you. It is important to have someone help care for you until you are awake and alert. Rest as needed. Do not: ? Participate in activities in which you could fall or become injured. ? Drive. ? Use heavy machinery. ? Drink alcohol. ? Take sleeping pills or medicines that cause drowsiness. ? Make important decisions or sign legal documents. ? Take care of children on your own. Eating and drinking Follow any instructions from your health care provider about eating or drinking restrictions. When you feel hungry, start by eating small amounts of foods that are soft and easy to digest (bland), such as toast. Gradually return to your regular diet. Drink enough fluid to keep your urine pale yellow. If you vomit, rehydrate by drinking water, juice, or clear broth. General instructions If you have sleep apnea, surgery and certain medicines can increase your risk for breathing problems. Follow instructions from your health care provider about wearing your sleep device: ? Anytime you are sleeping, including during daytime naps. ? While taking prescription pain medicines, sleeping medicines, or medicines that make you drowsy. Return to your normal activities as told by your health care provider. Ask your health care provider what activities are safe for you. Take qzmn-ilb-wpgbmye and prescription medicines only as told by your health care provider. If you smoke, do not smoke without supervision. Keep all follow-up visits as told by your health care provider. This is important. Contact a health care provider if: You have nausea or vomiting that does not get better with medicine. You cannot eat or drink without vomiting. You have pain that does not get better with medicine. You are unable to pass urine. You develop a skin rash. You have a fever. You have redness around your IV site that gets worse. Get help right away if: You have difficulty breathing. You have chest pain. You have blood in your urine or stool, or you vomit blood. Summary After the procedure, it is common to have a sore throat or nausea. It is also common to feel tired. Have a responsible adult stay with you for the first 24 hours after general anesthesia. It is important to have someone help care for you until you are awake and alert. When you feel hungry, start by eating small amounts of foods that are soft and easy to digest (bland), such as toast. Gradually return to your regular diet. Drink enough fluid to keep your urine pale yellow. Return to your normal activities as told by your health care provider. Ask your health care provider what activities are safe for you. This information is not intended to replace advice given to you by your health care provider. Make sure you discuss any questions you have with your health care provider. Document Released: 02/16/2002 Document Revised: 11/13/2018 Document Reviewed: 06/26/2018 [facility] Patient Education 2020 [facility] How to Use Cold Therapy Cold therapy, or cryotherapy, is a treatment that uses cold temperatures to treat an injury or medical condition. It includes using cold packs or ice packs to reduce pain and swelling. Only use cold therapy if your doctor says it is okay. What are the risks? Generally, cold therapy is a safe treatment. However, it is not safe for: People who are not able to say they are in pain. These include small children and people who have memory problems. People who have certain conditions, such as: ? A problem in the vessels that slows blood flow to the fingers and toes (Raynaud's syndrome). ? Feeling very cold easily (cold hypersensitivity). ? Lack of feeling in the area being iced. Cold therapy may not be safe for people who have other conditions. Do not use it without talking to your doctor if you have: A heart condition. High blood pressure. Open or healing wounds. An infection. Pain and swelling in your joints (rheumatoid arthritis). Poor blood flow in the body. Diabetes. Certain skin conditions. How can I make a cold pack? When using a cold pack at home to reduce pain and swelling, you can use: A silica gel cold pack that has been left in the freezer. You can buy this online or in stores. A sealable plastic bag that has been filled with crushed ice. A washcloth or paper towels soaked in cold (or ice) water. A plastic bag of frozen vegetables. Throw them away when you are finished using them as a cold pack. Supplies needed: A cold pack. A towel. This can be dry or damp, based on what you like. How to use cold therapy 1. Have your cold pack ready. 2. Place a towel between the cold pack and your skin. You may also wrap the cold pack in a towel. 3. Put the cold pack on the affected area. Keep it on for no more than 20 minutes at a time. 4. Check your skin after 5 minutes to make sure that there is no damage to the area. Check for: White spots on your skin. Your skin may look blotchy or mottled. Skin that looks blue or pale. Skin that feels waxy or hard. 5. Repeat these steps as many times each day as told by your doctor. Always use a towel to avoid direct contact with your skin. Contact a doctor if: You start to have white spots on your skin. This may give your skin a blotchy or mottled look. Your skin turns blue or pale. Your skin becomes waxy or hard. Your swelling gets worse. Summary Cold therapy, or cryotherapy, is used to treat an injury or other conditions. It includes using cold packs or ice packs to reduce pain and swelling. Cold therapy is not safe for people who are not able to say they are in pain. When using cold packs or ice packs, always place a towel between the cold source and your skin. Check your skin after 5 minutes of icing it. This is to make sure that there is no skin damage. Contact your doctor if you notice changes in your skin or your swelling gets worse. This information is not intended to replace advice given to you by your health care provider. Make sure you discuss any questions you have with your health care provider. Document Released: 04/28/2009 Document Revised: 08/09/2019 Document Reviewed: 08/09/2019 [facility] Patient Education 2020 [facility] How to Use Compression Stockings Compression stockings are elastic socks that squeeze the legs. They help increase blood flow (circulation) to the legs, decrease swelling in the legs, and reduce the chance of developing blood clots in the lower legs. Compression stockings are often used by people who: Are recovering from surgery. Have poor circulation in their legs. Tend to get blood clots in their legs. Have bulging (varicose) veins. Sit or stay in bed for long periods of time. Follow instructions from your health care provider about how and when to wear your compression stockings. How to wear compression stockings Before you put on your compression stockings: Make sure that they are the correct size and degree of compression. If you do not know your size or required grade of compression, ask your health care provider and follow the players club representative's instructions that come with the stockings. Make sure that they are clean, dry, and in good condition. Check them for rips and tears. Do not put them on if they are ripped or torn. Put your stockings on first thing in the morning, before you get out of bed. Keep them on for as long as your health care provider advises. When you are wearing your stockings: Keep them as smooth as possible. Do not allow them to bunch up. It is especially important to prevent the stockings from bunching up around your toes or behind your knees. Do not roll the stockings downward and leave them rolled down. This can decrease blood flow to your leg. Change them right away if they become wet or dirty. When you take off your stockings, inspect your legs and feet. Check for: Open sores. Red spots. Swelling. General tips Do not stop wearing compression stockings without talking to your health care provider first. Wash your stockings every day with mild detergent in cold or warm water. Do not use bleach. Air-dry your stockings or dry them in a clothes dryer on low heat. It may be helpful to have two pairs so that you have a pair to wear while the other is being washed. Replace your stockings every 3 6 months. If skin moisturizing is part of your treatment plan, apply lotion or cream at night so that your skin will be dry when you put on the stockings in the morning. It is harder to put the stockings on when you have lotion on your legs or feet. Wear nonskid shoes or slip-resistant socks when walking while wearing compression stockings. Contact a health care provider and remove your stockings if you have: A feeling of pins and needles in your feet or legs. Open sores, red spots, or other skin changes on your feet or legs. Swelling or pain that gets worse. Get help right away if you have: Numbness or tingling in your lower legs that does not get better right after you take the stockings off. Toes or feet that are unusually cold or turn a bluish color. A warm or red area on your leg. New swelling or soreness in your leg. Shortness of breath. Chest pain. A fast or irregular heartbeat. Light-headedness. Dizziness. Summary Compression stockings are elastic socks that squeeze the legs. They help increase blood flow (circulation) to the legs, decrease swelling in the legs, and reduce the chance of developing blood clots in the lower legs. Follow instructions from your health care provider about how and when to wear your compression stockings. Do not stop wearing your compression stockings without talking to your health care provider first. This information is not intended to replace advice given to you by your health care provider. Make sure you discuss any questions you have with your health care provider. Document Released: 09/07/2010 Document Revised: 11/12/2018 Document Reviewed: 11/12/2018 [facility] Patient Education 2020 [facility] Nausea and Vomiting, Adult Nausea is feeling sick to your stomach or feeling that you are about to throw up (vomit). Vomiting is when food in your stomach is thrown up and out of the mouth. Throwing up can make you feel weak. It can also make you lose too much water in your body (get dehydrated). If you lose too much water in your body, you may: Feel tired. Feel thirsty. Have a dry mouth. Have cracked lips. Go pee (urinate) less often. Older adults and people with other diseases or a weak body defense system (immune system) are at higher risk for losing too much water in the body. If you feel sick to your stomach and you throw up, it is important to follow instructions from your doctor about how to take care of yourself. Follow these instructions at home: Watch your symptoms for any changes. Tell your doctor about them. Follow these instructions to care for yourself at home. Eating and drinking Take an ORS (oral rehydration solution). This is a drink that is sold at pharmacies and stores. Drink clear fluids in small amounts as you are able, such as: ? Water. ? Ice chips. ? Fruit juice that has water added (diluted fruit juice). ? Low-calorie sports drinks. Eat bland, fnsz-sx-gccflf foods in small amounts as you are able, such as: ? Bananas. ? Applesauce. ? Rice. ? Low-fat (lean) meats. ? [place]. ? Crackers. Avoid drinking fluids that have a lot of sugar or caffeine in them. This includes energy drinks, sports drinks, and soda. Avoid alcohol. Avoid spicy or fatty foods. General instructions Take rfol-tol-uxieksj and prescription medicines only as told by your doctor. Drink enough fluid to keep your pee (urine) pale yellow. Wash your hands often with soap and water. If you cannot use soap and water, use hand hand laminator. Make sure that all people in your home wash their hands well and often. Rest at home while you get better. Watch your condition for any changes. Take slow and deep breaths when you feel sick to your stomach. Keep all follow-up visits as told by your doctor. This is important. Contact a doctor if: Your symptoms get worse. You have new symptoms. You have a fever. You cannot drink fluids without throwing up. You feel sick to your stomach for more than 2 days. You feel light-headed or dizzy. You have a headache. You have muscle cramps. You have a rash. You have pain while peeing. Get help right away if: You have pain in your chest, neck, arm, or jaw. You feel very weak or you pass out (faint). You throw up again and again. You have throw up that is bright red or looks like black coffee grounds. You have bloody or black poop (stools) or poop that looks like tar. You have a very bad headache, a stiff neck, or both. You have very bad pain, cramping, or bloating in your belly (abdomen). You have trouble breathing. You are breathing very quickly. Your heart is beating very quickly. Your skin feels cold and clammy. You feel confused. You have signs of losing too much water in your body, such as: ? Dark pee, very little pee, or no pee. ? Cracked lips. ? Dry mouth. ? Sunken eyes. ? Sleepiness. ? Weakness. These symptoms may be an emergency. Do not wait to see if the symptoms will go away. Get medical help right away. Call your local emergency services (911 in the [place] Do not drive yourself to the hospital. Summary Nausea is feeling sick to your stomach or feeling that you are about to throw up (vomit). Vomiting is when food in your stomach is thrown up and out of the mouth. Follow instructions from your doctor about eating and drinking to keep from losing too much water in your body. Take aqhv-tng-ncldoag and prescription medicines only as told by your doctor. Contact your doctor if your symptoms get worse or you have new symptoms. Keep all follow-up visits as told by your doctor. This is important. This information is not intended to replace advice given to you by your health care provider. Make sure you discuss any questions you have with your health care provider. Document Released: 04/28/2009 Document Revised: 03/03/2020 Document Reviewed: 04/20/2019 [facility] Patient Education 2020 [facility] Laparoscopic Cholecystectomy, Care After This sheet gives you information about how to care for yourself after your procedure. Your doctor may also give you more specific instructions. If you have problems or questions, contact your doctor. Follow these instructions at home: Care for cuts from surgery (incisions) Follow instructions from your doctor about how to take care of your cuts from surgery. Make sure you: ? Wash your hands with soap and water before you change your bandage (dressing). If you cannot use soap and water, use hand hand laminator. ? Change your bandage as told by your doctor. ? Leave stitches (sutures), skin glue, or skin tape (adhesive) strips in place. They may need to stay in place for 2 weeks or longer. If tape strips get loose and curl up, you may trim the loose edges. Do not remove tape strips completely unless your doctor says it is okay. Do not take baths, swim, or use a hot tub until your doctor says it is okay. Ask your doctor if you can take showers. You may only be allowed to take sponge baths for bathing. Check your surgical cut area every day for signs of infection. Check for: ? More redness, swelling, or pain. ? More fluid or blood. ? Warmth. ? Pus or a bad smell. Activity Do not drive or use heavy machinery while taking prescription pain medicine. Do not lift anything that is heavier than 10 lb (4.5 kg) until your doctor says it is okay. Do not play contact sports until your doctor says it is okay. Do not drive for 24 hours if you were given a medicine to help you relax (sedative). Rest as needed. Do not return to work or school until your doctor says it is okay. General instructions Take [id number] and prescription medicines only as told by your doctor. To prevent or treat constipation while you are taking prescription (more content not included)... [facility] 02-19-2024 Anesthesiology Progress note Patient: ALMA HARRELL Age: 23 years Sex: Female : 2000 Associated Diagnoses: None Author: HINA SANCHEZ APRN-PRIEST Preoperative Information Time of last food or liquid consumption: 02/18/2024 23:59:00 Anesthesia history Patient's history: negative. Family's history: negative. Review of Systems Ear/Nose/Mouth/Throat: Negative except as documented in history of present illness. Respiratory: Negative except as documented in history of present illness. Cardiovascular: Negative except as documented in history of present illness. Gastrointestinal: Negative except as documented in history of present illness. Genitourinary: Negative except as documented in history of present illness. Endocrine: Negative except as documented in history of present illness. Musculoskeletal: Negative except as documented in history of present illness. Integumentary: Negative except as documented in history of present illness. Neurologic: Negative except as documented in history of present illness. Health Status Allergies: Allergic Reactions (Selected) NKA, Allergies (1) ActiveReaction NKANone Documented Current medications: (Selected) Inpatient Medications Ordered LR 1,000 mL: 20 mL/hr, Intravenous gabapentin: 300 mg, 1 cap(s), Oral, PREOP pharm Documented Medications Documented ondansetron 4 mg oral tablet, disintegratin Refill(s), Medications (2) Active Scheduled: (1) gabapentin 300 mg Capsule 300 mg 1 cap(s), Oral, PREOP pharm Continuous: (1) Lactated Ringers 1,000 mL 1,000 mL, Intravenous, 20 mL/hr PRN: (0) Problem list: Medical Anxiety / SNOMED CT 79213670 / Confirmed Cholelithiasis / SNOMED CT 554118985 / Confirmed Adnexal cyst / SNOMED CT 6812362659 / Confirmed Diarrhea / SNOMED CT 417646458 / Confirmed Fatigue / SNOMED CT 923325170 / Confirmed Depression, / SNOMED CT 10899696 / Confirmed PTSD (post-traumatic stress disorder) / SNOMED CT 06230948 / Confirmed Depression, major, recurrent, moderate / SNOMED CT 740510911 / Confirmed Inactive: / SNOMED CT 4090596244 Canceled: / SNOMED CT 532687822, Active Problems (8) Adnexal cyst Anxiety Cholelithiasis Depression, major, recurrent, moderate Depression, Diarrhea Fatigue PTSD (post-traumatic stress disorder) Histories Past Medical History: Active Depression, (97439232) Anxiety (95064686) Family History: Asthma Grandparent Hypertension Grandparent Father Alcohol abuse Father Brother Grandparent Migraine Mother Kidney disease Father Depression Grandparent Diabetes Grandparent High cholesterol Father Grandparent Procedure history: Tonsillectomy (182706561). LASIK - laser assisted in situ keratomileusis (8123229064). 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 Physical Examination Vital Signs 02/19/2024 8:50 EDT Temperature Temporal Artery 36.1 DegC Peripheral Pulse Rate 77 bpm Respiratory Rate 14 br/min Systolic Blood Pressure Non-Invasive 113 mmHg Diastolic Blood Pressure Non-Invasive 77 mmHg Vital Signs(last 24 hrs) Last Charted TMX036 mmHg (FEB 18 08:50) DBP77 mmHg (FEB 18 08:50) Measurements from flowsheet : Measurements 02/19/2024 8:50 EDT Height 170 cm Admission Weight 96.6 kg Ola Body Weight 61.44 kg Admission Body Mass Index 33.43 m2 Pain assessment: Pain Assessment 02/19/2024 8:50 EDT Primary Pain Intensity 0 Pain Scale Type 0-10 Pain scale . General: Alert and oriented. Airway: Normal neck range of motion. Mallampati classification: I (soft palate, fauces, uvula, pillars visible). Head: Normocephalic. Dentition Evaluation: Intact, Own teeth. Neck: Full range of motion. Respiratory: Lungs are clear to auscultation. Cardiovascular: Normal rate. Heart Sounds: Normal. Gastrointestinal: Soft. Musculoskeletal Normal range of motion. Integumentary: Intact, Warm, Dry. Neurologic: Alert, Oriented. Review / Management Results review: No qualifying data available , Lab results 02/19/2024 9:53 EDT indocyanine green 5 mg mg 02/19/2024 9:09 EDT SN - Preop - CTm Pt Ready for OR/Proced 02/19/2024 9:09 02/19/2024 9:07 EDT Continuous IV Infusions LR Antecubital Right 02/19/2024 20 gauge Peripheral IV Activity: Insert new site Peripheral IV Site Condition: No complications Peripheral IV Number of Attempts: 2 Lactated Ringers Injection Begin Bag 1,000 mL mL 02/19/2024 9:05 EDT ibuprofen 800 mg mg 02/19/2024 8:50 EDT Height 170 cm Admission Weight 96.6 kg Ola Body Weight 61.44 kg Admission Body Mass Index 33.43 m2 Temperature Temporal Artery 36.1 DegC Peripheral Pulse Rate 77 bpm Respiratory Rate 14 br/min Systolic Blood Pressure Non-Invasive 113 mmHg Diastolic Blood Pressure Non-Invasive 77 mmHg Primary Pain Intensity 0 Pain Scale Type 0-10 Pain scale Heart Rhythm Regular Respirations Unlabored Respiratory Pattern Regular All Lobes Breath Sounds Clear Cough None Oxygen Therapy Room air Oxygen Saturation 96 % Abdomen Description Non-distended, Soft Bowel Sounds All Quadrants Present Urinary Elimination Voiding, no difficulties Skin Temperature Warm Skin Description [place], Normal for ethnicity, Dry Skin Integrity Intact Skin Moisture General Dry IV Present Present Neurological Symptoms Patient denies Extremity Movement Equal Characteristics of Speech Clear Level of Consciousness Alert Strength All Extremities Strong Sensation All Extremities Intact Affect/Behavior Appropriate Orientation Oriented x 4 Allergies Yes Anesthesia Extension Set Applied Yes Convention Planner On Yes Consent Form Signed Yes Patient Dressed In Hospital gown CHG Preoperative Wash/Wipe Night before procedure, Day of procedure Preop Nasal Swab Povidone-Iodine CHG Skin Prep Completed for Eligible Surgery History & Physical Update On Chart Yes History & Physical On Chart Yes Obstructive Sleep Apnea Assess Completed Yes Orientation Assessment Oriented x 4 Belongings At Bedside Pants, Shirt, Shoes Assistive Device None Positioning Repositions self Activity Status ADL Awake Sequential Compression Device bilateral knee high applied/on Antiembolism Stocking On/Re-applied bilateral knee high NPO Status Maintained Standard Safety ID band on, Call device within reach, Bed in low position, Wheels locked, Visitor at bedside Patient ID Band on and Verified Yes Implants Verified Yes Pacemaker/AICD Verified Yes Blood Consent Signed Yes Last Fluid Intake 02/18/2024 20:00 Last Food Intake 02/18/2024 19:00 Last Void 02/19/2024 8:52 02/19/2024 8:49 EDT SN - Preop - CTm Pt in SDS Room 02/19/2024 8:40 02/19/2024 8:47 EDT Designated Person #1 We May Share CAPRI Dagoberto Harrell [phone] Designated Person #1 Relationship Spouse Privacy Restrictions Requested None Status No, per patient Sensory Deficits None Sleep Apnea Snore No Sleep Apnea Tired No Sleep Apnea Obstruction No Sleep Apnea Pressure No Sleep Apnea BMI No Sleep Apnea Age No Sleep Apnea Neck No Sleep Apnea Gender No Sleep Apnea Score 0 Diagnosed With Sleep Apnea No Advanced Directives No - refuses information Infectious Disease Symptoms Patient states no symptoms Infectious Disease Recent Exposure No Alcohol and Drug Use No Employee of Institutional Living No Health Care Employee No History of Exposure to TB No History of Positive Chest X-Ray for TB No History of Positive TB Skin Test No Homeless No Known Immunosuppression No Recent Immigrant No Resident of Institutional Living No Bloody Sputum No Fatigue No Fever No Loss of Appetite No Night Sweats No Persistent Cough > 3 Weeks No Weight Loss No Pre-Op Patient Education NPO after midnight, No makeup, No jewelry, Responsible Constitution Party, Aware of surgery location, Pre-op education done, 1 bottle CHG wash with instructions given, No ordered medications, SSI prevention handout given SN - Preprocedure Comments Spoke with patient, Verbalizes/Nonverbally indicates understanding Individuals Taught Patient, Spouse Learning Readiness Willing to learn Barriers to Learning None evident Teaching Method Explanation, Printed materials Preferred Spoken Language Danish Preferred Written Language Danish Patient Care Education Plan of care Safety Brochure Information Reviewed Unable to complete [facility] Video Viewed No Information Given by Patient Patient's Current Physicians Patient's Current Physicians Discharge To, Anticipated Home independently Prev Test Positive/Diagnosis w/COVID-19 No Current Quarantine/Isolated any Illness No Any Contact with Sick Animals/Birds No Traveled Anywhere in Last 30 Days No Lost Weight Unintentionally Recently No Eat Poorly Due to Decreased Appetite No Total MST Score 0 Yes Personal Devices, Patient Valuables None Anesthesia/Transfusions Prior anesthesia Admission Note-Nursing Same Day Patient History 02/19/2024 8:42 EDT Test Urine Negative test (u) int test (u) int QC PRGUN Negative QC PRGUP Positive . Assessment and Plan [place] [employer] Anesthesiologists (ASA) physical status classification: Class II. Anesthetic Preoperative Plan Premedication: intravenous. Anesthetic technique: General. Induction: intravenously. Maintenance airway: Oral endotracheal tube. Postoperative pain management: Per surgeon. Risks discussed: nausea, vomiting, headache, sore throat, dental injury, hypotension, allergic reaction, serious complications. Informed consent: signed by patient. Digitally Signed by HINA SANCHEZ on 02/19/2024 10:23 AM [facility] 01-23-2024 Note ORIGINAL EXAMINATION: HIDA3/11/2023 2:16 pm TECHNIQUE: The patient received an intravenous injection of 4.6 mCi of Tc-99m mebrofenin (Choletec). Sequential planar images of the upper abdomen were then acquired over the next 60 minutes. An intravenous infusion of the cholecystokinin (CCK) analogue, Sincalide was then administered followed by an additional period of imaging. Computer quantification of gallbladder emptying was performed. COMPARISON: 12/31/2023. HISTORY: ORDERING SYSTEM PROVIDED HISTORY: Reason for Exam: RUQ pain FINDINGS: There is prompt accumulation of activity within the liver and normal subsequent excretion via the biliary ductal system. The gallbladder first visualizes at about 10 minutes after radiopharmaceutical injection and progressively fills. After stimulation, there is minimal contraction of the gallbladder with anterograde transit of activity into the small bowel. The gallbladder ejection fraction is calculated to be 12 % (normal above 35%). IMPRESSION: 1. No findings to suggest acute cholecystitis. 2. Abnormal gallbladder contraction, can be seen with chronic cholecystitis/biliary dyskinesia. 3. Patent common bile duct. 4. Normal hepatic function. Interpreted by: Garcia Welch DO Preliminary Report By: Garcia Welch DO Electronically signed By Garcia Welch DO Dictated Date: 01/23/2024 2:22:48 PM Prelim Date: 01/23/2024 2:24:41 PM Sign Date: 01/23/2024 2:24:41 PM Ordering Provider: PIEDAD BANG [facility] 12-31-2023 Hospital Discharge instructions Patient Education 12/31/2023 11:55:42 Abdominal Pain Abdominal Pain Abdominal pain is pain in the stomach or belly area. Everyone has this pain from time to time. In many cases it goes away on its own. But abdominal pain can sometimes be due to a serious problem, such as appendicitis. So it s important to know when to get help. Causes of abdominal pain There are many possible causes of abdominal pain. Common causes in adults include: Constipation, diarrhea, or gas Stomach acid flowing back up into the esophagus (acid reflux or heartburn) Severe acid reflux, called GERD (gastroesophageal reflux disease) A sore in the lining of the stomach or small intestine (peptic ulcer) Inflammation of the gallbladder, liver, or pancreas Gallstones or kidney stones Appendicitis Intestinal blockage An internal organ pushing through a muscle or other tissue (hernia) Urinary tract infections In women, menstrual cramps, fibroids, ovarian cysts, pelvic inflammatory disease, or endometriosis Inflammation or infection of the intestines, including Crohn's disease and ulcerative colitis Irritable bowel syndrome Diagnosing the cause of abdominal pain Your healthcare provider will give you a physical exam help find the cause of your pain. If needed, you will have tests. Belly pain has many possible causes. So it can be hard to find the reason for your pain. Giving details about your pain can help. Tell your provider where and when you feel the pain, and what makes it better or worse. Also let your provider know if you have other symptoms such as: Fever Tiredness Upset stomach (nausea) Vomiting Changes in bathroom habits Blood in the stool or black, tarry stool Weight loss that you can't explain (involuntary weight loss?) Also report any family history of stomach or intestinal problems, or cancers. Tell your provider about all your alcohol use and drug use. Tell your provider about all medicines you use, including herbs, vitamins, and supplements. Treating abdominal pain Some causes of pain need emergency medical treatment right away. These include appendicitis or a bowel blockage. Other problems can be treated with rest, fluids, or medicines. Your healthcare provider can give you specific instructions for treatment or self-care based on what is causing your pain. If you have vomiting or diarrhea, sip water or other clear fluids. When you are ready to eat solid foods again, start with small amounts of ilhk-hm-mbthkt, low-fat foods. These include apple sauce, toast, or crackers. When to get medical care Call 911 or go to the hospital right away if you: Can t pass stool and are vomiting Are vomiting blood or have bloody diarrhea or black, tarry diarrhea Have chest, neck, or shoulder pain Feel like you might pass out Have pain in your shoulder blades with nausea Have sudden, severe belly pain Have new, severe pain unlike any you have felt before Have a belly that is rigid, hard, and hurts to touch Call your healthcare provider if you have: Pain for more than 5 days Bloating for more than 2 days Diarrhea for more than 5 days A fever of 100.4 F (38 C) or higher, or as directed by your healthcare provider Pain that gets worse Weight loss for no reason Continued lack of appetite Blood in your stool How to prevent abdominal pain Here are some tips to help prevent abdominal pain: Eat smaller amounts of food at each meal. Don't eat greasy, fried, or other high-fat foods. Don't eat foods that give you gas. Exercise regularly. Drink plenty of fluids. To help prevent GERD symptoms: Quit smoking. Reduce alcohol and foods that increase stomach acid. Don't use aspirin or ebfb-cwa-wgvioew pain and fever medicines, if possible. This includes nonsteroidal anti-inflammatory drugs (NSAIDs). Lose excess weight. Finish eating at least 2 hours before you go to bed or lie down. Raise the head of your bed. [id number] [email or web address] [place] [address]. All rights reserved. This information is not intended as a substitute for professional medical care. Always follow your healthcare professional's instructions. Follow Up Care 12/31/2023 10:33:38 With:DAI PAINTING APRN-BATTERY CHARGER [employer] Address: [address] [place] [address] [phone] When:2-4 days [facility] 12-31-2023 Note Discharge Instructions Thank you for allowing [facility] to assist you with your healthcare needs. The following is important discharge information regarding your hospital visit. Diagnosis from Today's Visit Abdominal pain What to Do Next Instructions from Your Care Team WBC: 8.2 10^3/mcL (12/31/23 11:00:00) RBC: 4.74 10^6/mcL (12/31/23 11:00:00) Hgb: 13 G/dL (12/31/23 11:00:00) Hct: 38.3 % (12/31/23 11:00:00) MCV: 80.7 fL (12/31/23 11:00:00) MCH: 27.4 pg (12/31/23 11:00:00) MCHC: 33.9 G/dL (12/31/23 11:00:00) RDW: 14.6 % High (12/31/23 11:00:00) Platelet: 419 10^3/mcL High (12/31/23 11:00:00) MPV: 7.4 fL (12/31/23 11:00:00) Monocyte Distribution Width: 21.79 High (12/31/23 11:00:00) Neutrophil %: 46.8 % (12/31/23 11:00:00) Lymphocyte %: 41.3 % (12/31/23 11:00:00) Monocyte %: 5.4 % (12/31/23 11:00:00) Eosinophil %: 5 % (12/31/23 11:00:00) Basophil %: 1.5 % (12/31/23 11:00:00) Neutrophil, Absolute: 3.9 10^3/mcL (12/31/23 11:00:00) Lymphocyte, Absolute: 3.4 10^3/mcL (12/31/23 11:00:00) Monocyte, Absolute: 0.4 10^3/mcL (12/31/23 11:00:00) Eosinophil, Absolute: 0.4 10^3/mcL (12/31/23 11:00:00) Basophil, Absolute: 0.1 10^3/mcL (12/31/23 11:00:00) Protime: 11.7 seconds (12/20/23 17:03:00) PT International Ratio: 1 (12/20/23 17:03:00) UA Specimen Type: Clean Catch (12/31/23 11:00:00) UA Color: Yellow (12/31/23 11:00:00) UA Appear: Clear (12/31/23 11:00:00) UA Spec Grav: 1.020 (12/31/23 11:00:00) UA Glucose: Negative. (12/31/23 11:00:00) UA Bili: Negative. (12/31/23 11:00:00) UA Ketones: Negative. (12/31/23 11:00:00) UA Blood: Trace4 Abnormal (12/31/23 11:00:00) UA pH: 6.0 (12/31/23 11:00:00) UA Protein: Negative.1 (12/31/23 11:00:00) UA Urobilinogen: 0.2 (12/31/23 11:00:00) UA Nitrite: Negative. (12/31/23 11:00:00) UA Leuk Est: Negative. (12/31/23 11:00:00) UA RBC: 0-5 Abnormal (12/20/23 17:03:00) UA WBC: 5-10 Abnormal (12/20/23 17:03:00) UA Squam Epithelial: 0-5 Abnormal (12/20/23 17:03:00) UA Mucous: 1+ (12/20/23 17:03:00) UA Bacteria: 1+ Abnormal (12/20/23 17:03:00) Test Urine: Negative. (12/31/23 11:00:00) test (u) int: test (u) int (12/31/23 11:00:00) Glucose Level: 81 mg/dL (12/31/23 11:00:00) Sodium Level: 138 mmol/L (12/31/23 11:00:00) Potassium Level: 4.3 mmol/L (12/31/23 11:00:00) Chloride: 104 mmol/L (12/31/23 11:00:00) CO2: 23 mmol/L (12/31/23 11:00:00) Electrolyte Balance: 11 mEq/L (12/31/23 11:00:00) BUN: 13 mg/dL (12/31/23 11:00:00) Creatinine Lvl (s): 0.93 mg/dL (12/31/23 11:00:00) BUN/Creatinine Ratio: 14 ratio (12/31/23 11:00:00) Calcium Lvl: 9.1 mg/dL (12/31/23 11:00:00) Total Protein: 7.1 G/dL (12/31/23 11:00:00) Albumin Level: 3.6 G/dL (12/31/23 11:00:00) Globulin: 3.5 G/dL (12/31/23 11:00:00) A/G Ratio: 1 ratio Low (12/31/23 11:00:00) Bili Total: 0.3 mg/dL (12/31/23 11:00:00) Alk Phos: 64 U/L (12/31/23 11:00:00) AST/SGOT: 18 U/L (12/31/23 11:00:00) ALT/SGPT: 32 U/L (12/31/23 11:00:00) GFR Non-: 73 ml/min/1.73sqm (12/31/23 11:00:00) GFR : 89 ml/min/1.73sqm (12/31/23 11:00:00) Lipase Level: 50 U/L (12/31/23 11:00:00) Lactic Acid Lvl: 1.4 mmol/L (12/20/23 19:57:00) SARS-CoV-2 PCR: Cepheid Neg (12/20/23 17:03:00) FLU A PCR: Cepheid Neg (12/20/23 17:03:00) FLU B PCR: Cepheid Neg (12/20/23 17:03:00) RSV PCR: Cepheid Neg (12/20/23 17:03:00) Culture Blood: See Result (12/20/23 17:03:00) Culture Blood: See Result (12/20/23 17:03:00) Culture Urine: See Result (12/25/23 16:41:00) Lab Performed By: Lucila Ordonez [employer]PRESS[employer]CH[employer] (12/25/23 14:43:00) Lab Performing Location: [place] [id number] (12/25/23 14:43:00) Urine Color Urine Dipstick: Yellow (12/25/23 14:43:00) Urine Appearance Urine Dipstick: Hazy (Abnormal) (12/25/23 14:43:00) Glucose Urine Dipstick: Negative (12/25/23 14:43:00) Bilirubin Urine Dipstick: Negative (12/25/23 14:43:00) Ketones Urine Dipstick: Negative (12/25/23 14:43:00) Specific [place] Urine Dipstick: Greater than 1.030 (12/25/23 14:43:00) Blood Urine Dipstick: Trace (Abnormal) (12/25/23 14:43:00) pH Urine Dipstick: 5.5 (12/25/23 14:43:00) Protein Urine Dipstick: Negative (12/25/23 14:43:00) Urobilinogen Urine Dipstick: 0.2 mg/dl (12/25/23 14:43:00) Nitrite Urine Dipstick: Negative (12/25/23 14:43:00) Leukocytes Urine Dipstick: Negative (12/25/23 14:43:00) US Abdomen Limited Result Date: December 31, 2023 Verified By: JOSI TURK MD CLINICAL STATEMENT: IMPRESSION: Hepatic steatosis. No acute findings. No gallstones or signs of acute cholecystitis. No qualifying data available. Post Acute Orders No qualifying data available. You Need to Schedule the Following Appointments Follow Up with DAI PAINTING When Within 2-4 days Where: [address] [place] [address] [place] [address]- [phone] Allergies NKA Medications Please ask your primary doctor or pharmacist before taking any other medication not listed, including over the counter drugs, herbal medications, vitamins and or supplements as they may interact with your home medications. What When Instructions Last Dose Unchanged brexpiprazole (Rexulti 0.5 mg oral tablet) TAKE 0.5 TABLETS A DAY Please take this list to your next doctor s visit. Bring all medications you take, including over the counter medications, herbals and other supplements with you to your doctor s visit. Patients and families are reminded to discard old lists and to update any records with all medication providers or retail pharmacies. Education Materials Abdominal Pain Abdominal pain is pain in the stomach or belly area. Everyone has this pain from time to time. In many cases it goes away on its own. But abdominal pain can sometimes be due to a serious problem, such as appendicitis. So it s important to know when to get help. Causes of abdominal pain There are many possible causes of abdominal pain. Common causes in adults include: Constipation, diarrhea, or gas Stomach acid flowing back up into the esophagus (acid reflux or heartburn) Severe acid reflux, called GERD (gastroesophageal reflux disease) A sore in the lining of the stomach or small intestine (peptic ulcer) Inflammation of the gallbladder, liver, or pancreas Gallstones or kidney stones Appendicitis Intestinal blockage An internal organ pushing through a muscle or other tissue (hernia) Urinary tract infections In women, menstrual cramps, fibroids, ovarian cysts, pelvic inflammatory disease, or endometriosis Inflammation or infection of the intestines, including Crohn's disease and ulcerative colitis Irritable bowel syndrome Diagnosing the cause of abdominal pain Your healthcare provider will give you a physical exam help find the cause of your pain. If needed, you will have tests. Belly pain has many possible causes. So it can be hard to find the reason for your pain. Giving details about your pain can help. Tell your provider where and when you feel the pain, and what makes it better or worse. Also let your provider know if you have other symptoms such as: Fever Tiredness Upset stomach (nausea) Vomiting Changes in bathroom habits Blood in the stool or black, tarry stool Weight loss that you can't explain (involuntary weight loss?) Also report any family history of stomach or intestinal problems, or cancers. Tell your provider about all your alcohol use and drug use. Tell your provider about all medicines you use, including herbs, vitamins, and supplements. Treating abdominal pain Some causes of pain need emergency medical treatment right away. These include appendicitis or a bowel blockage. Other problems can be treated with rest, fluids, or medicines. Your healthcare provider can give you specific instructions for treatment or self-care based on what is causing your pain. If you have vomiting or diarrhea, sip water or other clear fluids. When you are ready to eat solid foods again, start with small amounts of glzo-mb-ftvqgb, low-fat foods. These include apple sauce, toast, or crackers. When to get medical care Call 911 or go to the hospital right away if you: Can t pass stool and are vomiting Are vomiting blood or have bloody diarrhea or black, tarry diarrhea Have chest, neck, or shoulder pain Feel like you might pass out Have pain in your shoulder blades with nausea Have sudden, severe belly pain Have new, severe pain unlike any you have felt before Have a belly that is rigid, hard, and hurts to touch Call your healthcare provider if you have: Pain for more than 5 days Bloating for more than 2 days Diarrhea for more than 5 days A fever of 100.4 F (38 C) or higher, or as directed by your healthcare provider Pain that gets worse Weight loss for no reason Continued lack of appetite Blood in your stool How to prevent abdominal pain Here are some tips to help prevent abdominal pain: Eat smaller amounts of food at each meal. Don't eat greasy, fried, or other high-fat foods. Don't eat foods that give you gas. Exercise regularly. Drink plenty of fluids. To help prevent GERD symptoms: Quit smoking. Reduce alcohol and foods that increase stomach acid. Don't use aspirin or tnzk-rqn-[id number] pain and fever medicines, if possible. This includes nonsteroidal anti-inflammatory drugs (NSAIDs). Lose excess weight. Finish eating at least 2 hours before you go to bed or lie down. Raise the head of your bed. 1152-4321 [employer]. [address] [place] [address], [place] [address]. All rights reserved. This information is not intended as a substitute for professional medical care. Always follow your healthcare professional's instructions. Additional Information VACCINATE! IT SAVES LIVES! Members of the community who have not yet received the COVID-19 vaccine and would like to receive it can visit one of [facility] vaccine clinics. There are many vaccine clinic locations within the [facility]. For locations and available times, please visit [email or web address] [email or web address] It is important to note that some COVID mobile vaccine clinics are held outdoors and may be canceled in rainy or stormy conditions. To learn more about pediatric vaccinations (ages 5-11), we invite you to visit the [facility] webpage. https://www.[place].org/pa ges/3880-Nwhhn-Ogmmalxryoh-Freque ccps-Ojhig-Nflxbezvu.html To learn more about the COVID-19 vaccine, we invite you to visit the CDC website for a list of frequently asked questions. https://www.cdc.gov/coronavirus/2 019-ncov/vaccines/faq.html [facility] Patient Portal Access Instructions: Stay connected with your healthcare team and access your personal medical information anytime with the [facility] Patient Portal. If you would like a full copy of your medical records please contact the [facility] Medical Records Department Friday through Friday between 8a.m. and 4:30p.m. Please follow the directions below to access the portal: 1.Access the email account you provided upon registration to the hospital.2.Look for an invitation email from [facility].3.Open the email and access the invitation link: Accept Invitation to [facility]4.Fill in the required ervin to create your account. Sign into [email or web address] with your username and password that you created in the above steps to stay up to date. You can then view a summary of results, a summary of your visits, and the ability to download your summaries to your computer or send the information securely to a physician. Remember that your healthcare information is confidential, so carefully consider who you will allow to register on the [facility] Patient Portal for access to your information. You can also access the [facility] Patient Portal on the [employer] aaron. Simply click on Health Records under Health Data and then click on the [employer] logo. HOW TO SAFELY DISPOSE OF PRESCRIPTION MEDICATIONS Please use one of the following methods to safely dispose of your unused medications. 1.Use a drug disposal kit: the drug disposal pouch allows you to safely discard your old and unused drugs. Ask your nurse to give you one when you are discharged.2.Visit a local take-back location: Many local pharmacies and police departments have programs that collect old and unwanted prescription drugs. Call your local pharmacy or go to http://OYO Sportstoys.Wedding Party/3R9Wo8r to find one close to you.3.Make use of household items: Use cat litter or old coffee grounds to dispose medications if other options are not available. Mix your drugs with these household products, seal them in an airtight container and throw it into the garbage. Call [facility]: [phone] to be sure your drugs can be disposed of in this way. Some medicines may require a different approach.4.Never flush your medications down the toilet. IF YOU HAVE BEEN PRESCRIBED AN OPIOIDS FOR PAIN If you have been prescribed an opioid (such as hydrocodone, oxycodone or morphine), it is critical to understand the possible side effects and risks of opioid pain medications. Even when taken as directed, opioids can have several side effects including: Tolerance, meaning you might need to take more of a medication for the same pain relief. Nausea, vomiting and/or constipation. Sleepiness, dizziness, dry mouth, confusion, depression or itching. Physical dependence, meaning you have withdrawal symptoms when a medication is stopped ? this can develop within a few days. KNOW YOUR RESPONSIBILITIES It is important to know exactly how much and how often to take the opioid pain medications you are prescribed. Never take opioids in higher amounts or more often than prescribed. Do not combine opioids with alcohol or other drugs that cause drowsiness, such as benzodiazepines, also known as benzos, including diazepam and alprazolam, muscle relaxants or sleep aids. Never sell or share prescription opioids. This is illegal. Store opioids in a secure place and out of reach of others (including children, family, friends and visitors). The last page(s) of this document has been signed and retained as a CHART COPY Signatures Patient Education Materials Abdominal Pain Medication Leaflets My discharge plan and instructions have been reviewed and explained to me and I,ALMA HARRELL understand my current condition and have read and understand these discharge instructions. I have received a written copy of the plan/instructions. If I have questions, I am aware that I should contact my doctor. Patient/Informatics Spec Signature: Date/Time: Relationship to Patient: ____ Witness Name/Signature: Date/Time: [facility] 12-31-2023 Note ORIGINAL EXAMINATION: LIMITED ABDOMINAL ULTRASOUND12/31/2023 11:39 am Limited ultrasound of the abdomen attention right upper quadrant COMPARISON: CT 12/20/2023 HISTORY: ORDERING SYSTEM PROVIDED HISTORY: Reason for Exam: abdominal pain, suspected gallstones on CT FINDINGS: The gallbladder is distended satisfactorily without calculi, wall thickening, pericholecystic edema or tenderness. There is no intrahepatic bile duct dilatation. The common duct is 4 mm at the glendy hepatis. The visualized liver shows coarsening of echotexture and mildly increased echogenicity. Although nonspecific, this is usually from fatty infiltration. No suspicious focal mass is seen. No obvious nodularity of the liver margins. There is some focal fatty sparing most prominent adjacent to the gallbladder. The pancreas is mostly obscured by bowel gas artifacts and poorly evaluated. No ascites is seen in the RIGHT upper quadrant. Limited survey images of the RIGHT kidney show normal cortical thickness and echogenicity with no pelvocaliectasis. IMPRESSION: Hepatic steatosis or other diffuse hepatocellular disease. No acute findings. No gallstones or signs of acute cholecystitis. Interpreted by: Josi Turk MD Preliminary Report By: Josi Turk MD Electronically signed By Josi Turk MD Dictated Date: 12/31/2023 11:41:45 AM Prelim Date: 12/31/2023 11:44:10 AM Sign Date: 12/31/2023 11:44:10 AM Ordering Provider: VERENA OSUNA [facility] 12-27-2023 Note . MICRO - Microbiology PROCEDURE: Urine Culture [*1] SOURCE: Urine, Clean Catch BODY SITE: COLLECTED DATE/TIME: 12/25/2023 16:41 EST RECEIVED DATE/TIME: 12/25/2023 19:44 EST START DATE/TIME: 12/25/2023 19:44 EST FREE TEXT SOURCE: FINAL REPORTS Final Report [] Verified Date/Time/Personnel: 12/27/2023 09:13 EST No growth at 48 hours. PRELIMINARY REPORTS Preliminary Report [] Verified Date/Time/Personnel: 12/26/2023 10:26 EST No growth to date Performing Locations *1: This test was performed at: [address], [facility] , [facility] ([place]) 12-26-2023 Note . MICRO - Microbiology PROCEDURE: Blood Culture (bacterial) [*1] SOURCE: Blood BODY SITE: COLLECTED DATE/TIME: 12/20/2023 17:03 EST RECEIVED DATE/TIME: 12/21/2023 16:22 EST START DATE/TIME: 12/21/2023 16:22 EST FREE TEXT SOURCE: FINAL REPORTS Final Report [] Verified Date/Time/Personnel: 12/26/2023 16:59 EST Blood Culture: No Growth at 5 days. PRELIMINARY REPORTS Preliminary Report [] Verified Date/Time/Personnel: 12/21/2023 16:59 EST Culture has been received in lab and is no growth to date. Routine cultures are held for 5 days. Performing Locations *1: This test was performed at: [address], [facility]- , [facility] ([place]) 12-26-2023 Note . MICRO - Microbiology PROCEDURE: Blood Culture (bacterial) [*1] SOURCE: Blood BODY SITE: COLLECTED DATE/TIME: 12/20/2023 17:03 EST RECEIVED DATE/TIME: 12/21/2023 16:22 EST START DATE/TIME: 12/21/2023 16:22 EST FREE TEXT SOURCE: FINAL REPORTS Final Report [] Verified Date/Time/Personnel: 12/26/2023 16:59 EST Blood Culture: No Growth at 5 days. PRELIMINARY REPORTS Preliminary Report [] Verified Date/Time/Personnel: 12/21/2023 16:59 EST Culture has been received in lab and is no growth to date. Routine cultures are held for 5 days. Performing Locations *1: This test was performed at: [address] ([place]) 12-22-2023 Note . MICRO - Microbiology PROCEDURE: Urine Culture [*1] SOURCE: Urine, Clean Catch BODY SITE: COLLECTED DATE/TIME: 12/20/2023 17:03 EST RECEIVED DATE/TIME: 12/21/2023 16:25 EST START DATE/TIME: 12/21/2023 16:25 EST FREE TEXT SOURCE: FINAL REPORTS Final Report [] Verified Date/Time/Personnel: 12/22/2023 14:08 EST 50,000 - 100,000 cfu/ml Mixed growth consistent with normal urogenital arvin. Performing Locations *1: This test was performed at: [address] ([place]) 12-20-2023 Hospital Discharge instructions Patient Education 12/20/2023 19:12:12 Understanding Urinary Tract Infections (UTIs) Understanding Urinary Tract Infections (UTIs) Most UTIs are caused by bacteria, although they may also be caused by viruses or fungi. Bacteria from the bowel are the most common source of infection. The infection may start because of any of the following: Sexual activity. During sex, bacteria can travel from the penis, vagina, or rectum into the urethra. Bacteria on the skin outside the rectum may travel into the urethra. This is more common in women since the rectum and urethra are closer to each other than in men. Wiping from front to back after using the toilet and keeping the area clean can help prevent germs from getting to the urethra. Blockage of urine flow through the urinary tract. If urine sits too long, germs may start to grow out of control. Parts of the urinary tract The infection can occur in any part of the urinary tract. The kidneys collect and store urine. The ureters carry urine from the kidneys to the bladder. The bladder holds urine until you are ready to let it out. The urethra carries urine from the bladder out of the body. It is shorter in women, so bacteria can move through it more easily. The urethra is longer in men, so a UTI is less likely to reach the bladder or kidneys in men. [id number] [employer]. [address] [place] [address]. All rights reserved. This information is not intended as a substitute for professional medical care. Always follow your healthcare professional's instructions. Follow Up Care 12/20/2023 16:35:17 With:DAI PAINTING Address: [address] [place] [phone]- [phone] When:2-4 days [facility] 12-20-2023 Note Discharge Instructions Thank you for allowing [facility] to assist you with your healthcare needs. The following is important discharge information regarding your hospital visit. Diagnosis from Today's Visit Febrile illness Malaise Nausea Pyelonephritis UTI (urinary tract infection) What to Do Next Instructions from Your Care Team Discharge Return to Work, School, or Sports (Return to Work, School, or Sports) - Ordered -- 12/21/23, May return to: work, 12/20/23 19:12:00 EST Post Acute Orders No qualifying data available. You Need to Schedule the Following Appointments Follow Up with DAI [facility] When Within 2-4 days Where: [address] [place] [phone]- [phone] Allergies NKA Medications Please ask your primary doctor or pharmacist before taking any other medication not listed, including over the counter drugs, herbal medications, vitamins and or supplements as they may interact with your home medications. What How Much When Why Instructions Last Dose New cefdinir (cefdinir 300 mg oral capsule) 1 cap by mouth Every 12 hours Duration: 10 Days Printed Prescription Please take this list to your next doctor s visit. Bring all medications you take, including over the counter medications, herbals and other supplements with you to your doctor s visit. Patients and families are reminded to discard old lists and to update any records with all medication providers or retail pharmacies. Education Materials Understanding Urinary Tract Infections (UTIs) Most UTIs are caused by bacteria, although they may also be caused by viruses or fungi. Bacteria from the bowel are the most common source of infection. The infection may start because of any of the following: Sexual activity. During sex, bacteria can travel from the penis, vagina, or rectum into the urethra. Bacteria on the skin outside the rectum may travel into the urethra. This is more common in women since the rectum and urethra are closer to each other than in men. Wiping from front to back after using the toilet and keeping the area clean can help prevent germs from getting to the urethra. Blockage of urine flow through the urinary tract. If urine sits too long, germs may start to grow out of control. Parts of the urinary tract The infection can occur in any part of the urinary tract. The kidneys collect and store urine. The ureters carry urine from the kidneys to the bladder. The bladder holds urine until you are ready to let it out. The urethra carries urine from the bladder out of the body. It is shorter in women, so bacteria can move through it more easily. The urethra is longer in men, so a UTI is less likely to reach the bladder or kidneys in men. [id number] [employer]. [address] [place] [address], [place] [address]. All rights reserved. This information is not intended as a substitute for professional medical care. Always follow your healthcare professional's instructions. Additional Information VACCINATE! IT SAVES LIVES! Members of the community who have not yet received the COVID-19 vaccine and would like to receive it can visit one of [facility] vaccine clinics. There are many vaccine clinic locations within the State. For locations and available times, please visit [email or web address] [email or web address] It is important to note that some COVID mobile vaccine clinics are held outdoors and may be canceled in rainy or stormy conditions. To learn more about pediatric vaccinations (ages 5-11), we invite you to visit the [facility] webpage. https://www.[place].org/pa ges/6738-Bjrww-Ggylafydivn-Freque fggi-Lcllt-Mjmzmuaya.html To learn more about the COVID-19 vaccine, we invite you to visit the CDC website for a list of frequently asked questions. https://www.cdc.gov/coronavirus/2 019-ncov/vaccines/faq.html [facility] Patient Portal Access Instructions: Stay connected with your healthcare team and access your personal medical information anytime with the [facility] Patient Portal. If you would like a full copy of your medical records please contact the [facility] Medical Records Department Friday through Friday between 8a.m. and 4:30p.m. Please follow the directions below to access the portal: 1.Access the email account you provided upon registration to the hospital.2.Look for an invitation email from [facility].3.Open the email and access the invitation link: Accept Invitation to [facility]4.Fill in the required ervin to create your account. Sign into [email or web address] with your username and password that you created in the above steps to stay up to date. You can then view a summary of results, a summary of your visits, and the ability to download your summaries to your computer or send the information securely to a physician. Remember that your healthcare information is confidential, so carefully consider who you will allow to register on the [facility] Patient Portal for access to your information. You can also access the [facility] Patient Portal on the [employer] aaron. Simply click on Health Records under Health Data and then click on the [employer] logo. HOW TO SAFELY DISPOSE OF PRESCRIPTION MEDICATIONS Please use one of the following methods to safely dispose of your unused medications. 1.Use a drug disposal kit: the drug disposal pouch allows you to safely discard your old and unused drugs. Ask your nurse to give you one when you are discharged.2.Visit a local take-back location: Many local pharmacies and police departments have programs that collect old and unwanted prescription drugs. Call your local pharmacy or go to http://OY[employer] Sportstoys.Wedding Party/4Z9Zz5t to find one close to you.3.Make use of household items: Use cat litter or old coffee grounds to dispose medications if other options are not available. Mix your drugs with these household products, seal them in an airtight container and throw it into the garbage. Call [facility]: [phone] to be sure your drugs can be disposed of in this way. Some medicines may require a different approach.4.Never flush your medications down the toilet. IF YOU HAVE BEEN PRESCRIBED AN OPIOIDS FOR PAIN If you have been prescribed an opioid (such as hydrocodone, oxycodone or morphine), it is critical to understand the possible side effects and risks of opioid pain medications. Even when taken as directed, opioids can have several side effects including: Tolerance, meaning you might need to take more of a medication for the same pain relief. Nausea, vomiting and/or constipation. Sleepiness, dizziness, dry mouth, confusion, depression or itching. Physical dependence, meaning you have withdrawal symptoms when a medication is stopped ? this can develop within a few days. KNOW YOUR RESPONSIBILITIES It is important to know exactly how much and how often to take the opioid pain medications you are prescribed. Never take opioids in higher amounts or more often than prescribed. Do not combine opioids with alcohol or other drugs that cause drowsiness, such as benzodiazepines, also known as benzos, including diazepam and alprazolam, muscle relaxants or sleep aids. Never sell or share prescription opioids. This is illegal. Store opioids in a secure place and out of reach of others (including children, family, friends and visitors). The last page(s) of this document has been signed and retained as a CHART COPY Signatures Patient Education Materials Understanding Urinary Tract Infections (UTIs) Medication Leaflets My discharge plan and instructions have been reviewed and explained to me and ISHARRI ASHLEY N understand my current condition and have read and understand these discharge instructions. I have received a written copy of the plan/instructions. If I have questions, I am aware that I should contact my doctor. Patient/Informatics Spec Signature: Date/Time: Relationship to Patient: ____ Witness Name/Signature: Date/Time: [facility] 12-20-2023 Note ORIGINAL EXAMINATION: CT OF THE ABDOMEN AND PELVIS WITH CONTRAST12/20/2023 7:12 pm TECHNIQUE: CT of the abdomen and pelvis was performed with the administration of intravenous contrast. Multiplanar reformatted images are provided for review. Automated exposure control, iterative reconstruction, and/or weight based adjustment of the mA/kV was utilized to reduce the radiation dose to as low as reasonably achievable. COMPARISON: CT abdomen/pelvis 03/04/2020 HISTORY: ORDERING SYSTEM PROVIDED HISTORY: Reason for Exam: pain FINDINGS: The liver is unremarkable in contour. Diffuse hypoattenuation of liver with focal hyperdensity about the gallbladder fossa consistent with hepatic steatosis with focal fatty sparing. No suspicious hepatic lesions. There is no intra or extrahepatic biliary duct dilation. Small cholelithiasis and/or sludge; otherwise, unremarkable appearance of the gallbladder. The pancreas, spleen, and bilateral adrenal glands are unremarkable. The kidneys enhance symmetrically without evidence of hydronephrosis or suspicious lesions. The urinary bladder is without wall thickening or focal mass. Bilateral adnexal cysts, 2.6 cm on the right and 3.8 cm on the left; no follow-up is required. No suspicious uterine or adnexal lesions. No acute abnormality within visualized GI tract.No pericecal inflammation. No free air, free fluid, or drainable fluid collection within the abdomen or pelvis. No pathologically enlarged or aggressive appearing lymph nodes. Nonaneurysmal aortoiliac arteries. No acute osseous abnormality. No aggressive appearing osseous lesions. No acute abnormality within the partially visualized lower thorax. IMPRESSION: No acute process within the abdomen or pelvis. Cholelithiasis. Bilateral simple adnexal cysts. No follow-up is required. I have personally reviewed the images of this examination and agree with the resident's findings and interpretation. Interpreted by: Ham Reich Preliminary Report By: Henok Avendano Electronically signed By Ham Reich Dictated Date: 12/20/2023 7:38:19 PM Prelim Date: 12/20/2023 7:47:18 PM Sign Date: 12/20/2023 7:51:57 PM Ordering Provider: [facility] 12-20-2023 Note ORIGINAL EXAMINATION: ONE XRAY VIEW OF THE CHEST 12/20/2023 5:35 pm COMPARISON: 10/30/2020 HISTORY: ORDERING SYSTEM PROVIDED HISTORY: Reason for Exam: fever, pain or tachypnea FINDINGS: The cardiomediastinal silhouette appears normal. There is no focal consolidation. There is no pulmonary edema. There is no evidence of pleural effusion. There is no evidence of pneumothorax. No fracture is identified. IMPRESSION: No acute abnormality is identified. Interpreted by: Ham Reich Preliminary Report By: Ham Reich Electronically signed By Ham Reich Dictated Date: 12/20/2023 5:42:29 PM Prelim Date: 12/20/2023 5:43:21 PM Sign Date: 12/20/2023 5:43:21 PM Ordering Provider: [facility] 12-20-2023 Evaluation + Plan note Diagnostic Tests PendingUrine Culture 12/20/23Blood Culture (bacterial) 12/20/23Blood Culture (bacterial) 12/20/23 Future Scheduled TestsComplete Blood Count 09/10/23Complete Metabolic Panel 09/10/23 [facility] 10-22-2023 History of Present illness Narrative Images from the original note were not included. Rheumatology Clinic Date of Service: 10/22/2023 Patient: Alma Harrell Medical Record: [id number] Last Rheumatology visit: 10/22/2023 (with Milka Srinivasan) Telephone Encounter History of Present Illness Alma Harrell is a 23 year old White female who presents on 10/22/2023 for evaluation of Follow Up. Her most recent CASSANDRA was positive (10/15/2023). HISTORY OF PRESENT ILLNESS 23 year old female who presents for evaluation of positive CASSANDRA in setting of fatigue. Past medical history: Depression, anxiety, suspected IBS, per chart post depression Past surgical history: Tonsillectomy She has been struggling with extreme fatigue. Her PCP ran an CASSANDRA and this was positive. Fatigue has been present for a few years then worsened over time. Noticed the fatigue initially when she had her kids, but even as they slept more her fatigue was worsening. She has unrefreshed sleep. She has daily fatigue. She was started on B12 to see if this would improve her symptoms. Though B12 was not low. Vitamin D was low and she was started on Vitamin D replacement. She reports thyroid levels were normal. She has not had a sleep study done. No rashes No photosensitivity. Eyes are light sensitive Recurrent oral ulcers - occurring once weekly. Happening on the gums. No raynauds No h/o serositis No blood clots +dry eyes - dating back to when she was teenager. Does not wear contacts. Currently on drops using them few times daily. +dry mouth - noticed this for about 1 year +reflux - present since she was 10. IBS - has diarrhea and constipation. Having Bms once weekly. No fevers No unintentional weight loss No inflammatory eye disease No weakness No numbness or tingling No urinary symptoms No seizures +migraines No miscarriage 3 deliveries at 32, 33 and 30 +pain - notices it in her upper extremities. Recalls having pain that she cannot sometimes pickle sorter her baby. Symptoms are daily. Anywhere in the arms. Pain is daily but seems random. No clear aggravating or alleviating factors. Described as sharp and achy. Occurring in the shoulder, elbows and wrists. Feels more in joints than in muscles. Can sometimes be alleviated with NSAIDS but not reliably. Pain started after she had her last daughter who is now 10 months old. +brain fog +occasional memory issues Health maintenance Up to date on pap smear INTERVAL HISTORY Follow up today to discuss lab results. Labs reveal CASSANDRA 1:80, negative WINSOME panel, negative dsDNA Patient-Entered Data PROMIS Assessments PROMIS Global Health - (T-Scores - the mean of general population = 50. Five points is a clinically meaningful difference.) 10/14/2023 Physical T-Score 32.4 Mental T-Score 33.8 PROMIS CAT Pain Interference 10/14/2023 PROMIS Pain Interference T-Score (range: 10 - 90) 63 (moderate) PROMIS Pain Interference Percentile 10% PROMIS CAT Fatigue 10/14/2023 PROMIS Fatigue T-Score 74 (severe) PROMIS Fatigue Percentile 1% PROMIS PHYSICAL FUNCTION T-SCORE 10/14/2023 PROMIS Physical Function T-Score 41 (mild dysfunction) Physical Function Percentile 18% 3 Agarwal Activities of Daily Living 10/14/2023 10:01 PM Dress self? Without ANY difficulty Get in and out of bed? Without ANY difficulty Walk outdoors? Without ANY difficulty Wash and dry body? Without ANY difficulty Get in and out of car? Without ANY difficulty RAPID 3 Disease Activity Weighed Score Levels: 0 - 1: Near Remission 1.3 - 2.0: Low Severity 2.3 - 4.0: Moderate Severity 4.3 - 10.0: High Severity RAPID-3 Weighed Score 10/14/2023 RAPID 3 Weighed Score 4.06 Patient Health Questionnaire (PHQ-9) PHQ-9 10/14/2023 Score 15 (0-4) minimal depression, (5-9) mild depression, (10-14) moderate depression, (15-19) moderately severe depression, (20-27) severe depression Review of Systems Review of Systems CONSTITUTION: Negative for: Fever and Recent weight change HEENT: Positive for: Nosebleeds, Mouth sores, Trouble swallowing and Dry mouth RESPIRATORY: Positive for: Shortness of breath and Pain with breathing Negative for: Cough GASTROINTESTINAL: Positive for: Diarrhea, Heartburn and Abdominal pain Negative for: Melena MUSCULOSKELETAL: Positive for: Arthralgias, Myalgias, Muscle weakness and Morning Joint Stiffness Negative for: Joint swelling NEUROLOGICAL: Positive for: Headaches Negative for: Numbness and Memory loss SKIN: Positive for: Hair loss Negative for: Rash, Skin changes and Nail changes EYES: Positive for: Eye pain, Eye dryness and Visual disturbance Negative for: Eye redness CARDIOVASCULAR: Positive for: Chest pain Negative for: Leg swelling GENITOURINARY: Negative for: Dysuria and Hematuria HEMATOLOGIC/LYMPHATIC: Negative for: Swollen glands All other reviewed and negative other than HPI. Current Medications Current Outpatient Medications on File Prior to Visit Medication Sig citalopram (CELEXA) 20 mg tablet Take 20 mg by mouth once daily. Teayinne-Rz-Cyd-Fe-FA ( VITAMIN) tab Take 1 tablet by mouth once daily. (Patient not taking: Reported on 09/09/2023) sertraline (ZOLOFT) 100 mg tablet Take 1 tablet by mouth once daily. (Patient not taking: Reported on 07/26/2022) Clindamycin-Benzoyl Peroxide 1.2 %(1 % base) -5 % gel Apply 1 application to affected area once daily. Norethindrone, Contraceptive, (ORTHO MICRONOR) 0.35 mg tablet Take 1 tablet by mouth once daily. (Patient not taking: Reported on 07/26/2022) No current facility-administered medications on file prior to visit. Labs Antibodies Latest Ref Rng & Units 10/15/2023 CASSANDRA Negative Positive(A) CASSANDRA TITER - 1:80 CASSANDRA PATTERN - Nuclear homogeneous DNA ANTIBODY <=200 IU/mL 125 ANTI-SM <1.0 AI <0.2 SM ANTIBODY Negative Negative RIBOSOMAL MEDICAL BILLING ASSISTANT AB <1.0 AI <0.2 RIBOSOMAL MEDICAL BILLING ASSISTANT QUAL Negative Negative CHROMATIN AB <1.0 AI <0.2 CHROMATIN AB QUAL Negative Negative SSA ANTIBODY QUAL Negative Negative ANTI-SSA <1.0 AI <0.2 ANTI-SSB <1.0 AI <0.2 MEDICAL BILLING ASSISTANT ANTIBODY QUAL Negative Negative SCL-70 AB QUAL Negative Negative SCL-70 ABS, EIA <1.0 AI <0.2 CENTROMERE AB <1.0 AI <0.2 CENTROMERE AB QUAL Negative Negative CHITO-1 ANTIBODY, IGG <1.0 AI <0.2 CHITO 1 ANTIBODY QUAL Negative Negative Physical Exam LMP 04/12/2022 Impression and Plan Diagnoses: (R53.82) Chronic fatigue (primary encounter diagnosis) (R76.8) Positive CASSANDRA (antinuclear antibody) Alma is a 23 year old female who presents for evaluation of positive CASSANDRA in the setting of chronic fatigue. Fatigue has been present for a few years then worsened over time. Noticed the fatigue initially when she had her kids, but even as they slept more her fatigue was worsening. Associated symptoms include unrefreshed sleep, brain fog and joint pain. Pain is present in the shoulders, elbows and wrists. Her pain started after her she had her last daughter, who is now 10 months old. Her CASSANDRA ROS is positive for migraines, dry eyes and dry mouth. On exam, no signs of synovitis. No notable weakness. No periungal erythema. Clinically at this time we discussed lower suspicion for CASSANDRA spectrum disease based on symptoms. However with sicca symptoms and fatigue discussed further CASSANDRA work up including WINSOME, C3, C4, CASSANDRA, dsDNA which was negative. No clinical signs of rheumatic autoimmune disease at this time. Recommend ongoing follow up with her PCP. Recommend sleep study. Orders this visit: No orders found for this visit on 10/22/23. No follow-ups on file. CC: PCP: Yovanny Navarro MD [id number] [facility] [place] [address] Phone #: [phone] I spent a total of 15 minutes on the date of the service which included preparing to see the patient, [id number] patient care, completing clinical documentation, obtaining and/or reviewing separately obtained history, performing a medically appropriate examination, and counseling and educating the patient/family/caregiver. Milka Srinivasan MD Rheumatology documented in this encounter [facility] 09-14-2023 Note . MICRO - Microbiology PROCEDURE: Stool Culture [^1 *1] SOURCE: Stool BODY SITE: COLLECTED DATE/TIME: 09/11/2023 09:10 EDT RECEIVED DATE/TIME: 09/11/2023 19:30 EDT START DATE/TIME: 09/11/2023 19:30 EDT FREE TEXT SOURCE: FINAL REPORTS Final Report [] Verified Date/Time/Personnel: 09/14/2023 11:10 EDT Normal stool arvin present. Salmonella: Negative Shigella: Negative Campylobacter: Negative PRELIMINARY REPORTS Preliminary Report [] Verified Date/Time/Personnel: 09/13/2023 10:02 EDT Normal stool arvin present. Negative for stool pathogens at 48 hours. Final report to follow. Interpretive Data ^1: Culture Stool Requests for alternative pathogens including Yersinia, E. coli 0157, C. difficile toxin, Rotavirus, Giardia and parasites require specific requests. Performing Locations *1: This test was performed at: [address], [address] , [facility] ([place]) 09-12-2023 Note . MICRO - Microbiology PROCEDURE: Shiga Toxins 1 and 2 [[id number]: [id number] ^1 *1] SOURCE: Stool BODY SITE: COLLECTED DATE/TIME: 09/11/2023 19:30 EDT RECEIVED DATE/TIME: 09/11/2023 19:30 EDT START DATE/TIME: 09/11/2023 19:30 EDT FREE TEXT SOURCE: FINAL REPORTS Final Report [] Verified Date/Time/Personnel: 09/12/2023 12:16 EDT Absence of Shiga toxin 1 Absence of Shiga toxin 2 Order Comments O1: Shiga Toxins 1 and 2 ordered by lab as part of Culture Stool Panel Interpretive Data ^1: Shiga Toxins 1 and 2 Testing performed by immunochromatography. Performing Locations *1: This test was performed at: [address], [address] , [facility] ([place]) 09-10-2023 Evaluation + Plan note Future Scheduled TestsComplete Blood Count 09/10/23Complete Metabolic Panel 09/10/23 [facility] 09-10-2023 Evaluation + Plan note Future Appointments Future Scheduled TestsComplete Blood Count 09/10/23Complete Metabolic Panel 09/10/23 [facility] 09-09-2023 History of Present illness Narrative Subjective HPI Nontoxic-appearing female presents urgent care chief complaint abdominal pain nausea vomiting diarrhea transient fevers. Duration of symptoms ongoing for 4 weeks. Was seen in ED 2 weeks ago. Diagnosed with viral illness. Did follow-up with PCP same diagnosis. Presents today with worsening symptoms. States unable to tolerate oral fluids. Has not peed in over 12 hours. Abdominal pain is worsening. Denies any blood in vomit or stool. Vomited 4 times today. 3 episodes of loose stool. .Patient presents with: Diarrhea: vomiting, fever x 4 weeks, upper quadrant abdominal pain off and on PAST MEDICAL HISTORY Diagnosis Date Anxiety disorder Depression Mood changes depression 09/23/2018 PAST SURGICAL HISTORY Procedure Laterality Date NONE ALLERGIES Patient has no known allergies. MEDICATIONS citalopram (CELEXA) 20 mg tablet Take 20 mg by mouth once daily. Clindamycin-Benzoyl Peroxide 1.2 %(1 % base) -5 % gel Apply 1 application to affected area once daily. Vkvfhono-Qc-Tah-Fe-FA ( VITAMIN) tab Take 1 tablet by mouth once daily. (Patient not taking: Reported on 09/09/2023) sertraline (ZOLOFT) 100 mg tablet Take 1 tablet by mouth once daily. (Patient not taking: Reported on 07/26/2022) Norethindrone, Contraceptive, (ORTHO MICRONOR) 0.35 mg tablet Take 1 tablet by mouth once daily. (Patient not taking: Reported on 07/26/2022) FAMILY HISTORY Problem Relation Age of Onset Diabetes Maternal Grandmother Social History Tobacco Use Smoking status: Never Smokeless tobacco: Never Substance Use Topics Alcohol use: No Drug use: No Review of Systems Constitutional: Negative for chills, fever and malaise/fatigue. HENT: Negative for congestion, ear discharge, ear pain, sinus pain and sore throat. Eyes: Negative for blurred vision, pain, discharge and redness. Respiratory: Negative for cough, hemoptysis, sputum production, shortness of breath, wheezing and stridor. Cardiovascular: Negative for chest pain. Gastrointestinal: Positive for abdominal pain, diarrhea, nausea and vomiting. Musculoskeletal: Negative for myalgias. Skin: Negative for itching and rash. Neurological: Negative for dizziness and headaches. Objective Physical Exam Constitutional: General: She is not in acute distress. Appearance: She is not diaphoretic. HENT: Head: Normocephalic. Jaw: No trismus, tenderness, swelling or pain on movement. Mouth/Throat: Mouth: Mucous membranes are moist. Pharynx: Oropharynx is clear. Uvula midline. No pharyngeal swelling, oropharyngeal exudate, posterior oropharyngeal erythema or uvula swelling. Eyes: Conjunctiva/sclera: Conjunctivae normal. Pupils: Pupils are equal, round, and reactive to light. Cardiovascular: Rate and Rhythm: Normal rate and regular rhythm. Heart sounds: Normal heart sounds. Pulmonary: Effort: Pulmonary effort is normal. No tachypnea, accessory muscle usage or respiratory distress. Breath sounds: Normal breath sounds. No stridor. No wheezing, rhonchi or rales. Abdominal: General: There is no distension. Palpations: Abdomen is soft. Tenderness: There is abdominal tenderness in the right upper quadrant. There is no guarding or rebound. Musculoskeletal: Cervical back: Normal range of motion and neck supple. No edema, erythema, rigidity or tenderness. No pain with movement. Normal range of motion. Lymphadenopathy: Cervical: No cervical adenopathy. Skin: General: Skin is warm and dry. Neurological: Mental Status: She is alert and oriented to person, place, and time. ASSESSMENT/PLAN: 1. Tachycardia - ICD9: 785.0, ICD10: R00.0 (primary diagnosis) 2. Right upper quadrant pain - ICD9: 789.01, ICD10: R10.11 Patient has significant right upper quadrant pain. He is tachycardic. Signs of dehydration today's visit. Referred patient to ED or follow-up with PCP today for reevaluation. Verbalized understand agrees with plan of care. Serge Alfaro APRN.[employer] documented in this encounter [facility] 07-09-2023 Evaluation + Plan note Diagnostic Tests PendingAntinuclear Antibody Screen, Serum 07/09/23 [facility] 06-06-2023 Hospital Discharge instructions Patient Education 06/06/2023 01:41:53 Ankle Sprain (Adult) Ankle Sprain (Adult) An ankle sprain is a stretching or tearing of the ligaments that hold the ankle joint together. There are no broken bones. An ankle sprain is a common injury for both children and adults. It happens when the ankle turns, twists, or rolls in an awkward way. This can be caused by a sports injury. Or it can happen from doing something as simple as stepping on an uneven surface. Ligaments are made of tough connective tissue. Normally, ligaments stretch a certain amount and then go back to their normal place. A sprain happens when a ligament is forced to stretch more than the normal amount. A severe sprain can actually tear the ligaments. If you have a severe sprain, you may have felt or heard something like a pop when you were injured. Ankle sprains are given a grade depending on whether they are mild, moderate, or severe: Grade 1 sprain. A mild sprain with minor stretching and damage to the ligament. Grade 2 sprain. A moderate sprain where the ligament is partly torn. Grade 3 sprain. The most severe kind of sprain. The ligament is completely torn. Most sprains take about 4 to 6 weeks to heal. A severe sprain can take several months to recover. Your healthcare provider may order X-rays to be sure you don t have a fracture, or broken bone. The injured area will feel sore. Swelling and pain may make it hard to walk. You may need crutches if walking is painful. Or your provider may have you use a cast boot or air splint. This will depend on the grade of ankle sprain that you have. Home care For a Grade 1 sprain, use RICE (rest, ice, compression, and elevation): Rest your ankle. Don t walk on it. Ice should be used right away to help control swelling. Place an ice pack over the injured area for 20 minutes. Do this every 3 to 6 hours for the first 24 to 48 hours. Keep using ice packs to ease pain and swelling as needed. To make an ice pack, put ice cubes in a plastic bag that seals at the top. Wrap the bag in a clean, thin towel or cloth. Never put ice or an ice pack directly on the skin. The ice pack can be put right on the cast, bandage, or splint. As the ice melts, be careful that the cast, bandage, or splint doesn t get wet. If you have a boot, open it to apply an ice pack, unless told otherwise by your provider. Compression devices help to control swelling. They also keep the ankle from moving and support your injured ankle. These devices include dressings, bandages, and wraps. Elevate or raise your ankle above the level of your heart when sitting or lying down. This is very important for the first 48 hours. Follow the RICE guidelines for a Grade 2 sprain. This type of sprain will take longer to heal. Your provider may have you wear a splint, cast, or brace to keep your ankle from moving. If you have a Grade 3 sprain, you are at risk for long-term ankle instability. In rare cases, surgery may be needed. Your provider may have you wear a short leg cast or a walking boot for 2 to 3 weeks. After 48 hours, it may be helpful to apply heat for 20 minutes several times a day. You can do this with a heating pad or warm compress. Or you may want to go back and forth between using ice and heat. Never apply heat directly to the skin. Always wrap the heating pad or warm compress in a clean, thin towel or cloth. You may use zonw-[id number] pain medicine (NSAIDS or nonsteroidal anti-inflammatory drugs) to control pain, unless another pain medicine was prescribed. Talk with your provider before using these medicines if you have chronic liver or kidney disease, or have ever had a stomach ulcer or gastrointestinal bleeding. Follow any rehabilitation exercises your provider gives you. These can help you be more flexible and improve your balance and coordination. This is helpful in preventing long-term ankle problems. Prevention To help prevent ankle sprains, it s important to have good strength, balance, and flexibility. Be sure to: Always warm up before you exercise or do something very active Be careful when walking or running on uneven or cracked surfaces Wear shoes that are in good condition and fit well Listen to your body s signals to slow down when you are in pain or tired Follow-up care Any X-rays you had today don t show any broken bones, breaks, or fractures. Sometimes fractures don t show up on the first X-ray. Bruises and sprains can sometimes hurt as much as a fracture. These injuries can take time to heal completely. If your symptoms don t get better or they get worse, talk with your healthcare provider. You may need a repeat X-ray. Follow up with your healthcare provider, or as advised. Check for any warning signs listed below. When to seek medical advice Call your healthcare provider right away if any of these occur: Fever of 100.4 F (38 C) or higher, or as directed by your healthcare provider Chills The injury doesn t seem to be healing The swelling comes back The cast or splint has a bad smell The plaster cast or splint gets wet or soft The fiberglass cast or splint gets wet and does not dry for 24 hours The pain or swelling increases, or redness appears Your toes become cold, blue, numb, or tingly The skin is discolored (looks blue, purple, or robertson), has blisters, or is irritated You re-injure your ankle [id number] The [employer]. [address] [place] [address]. All rights reserved. This information is not intended as a substitute for professional medical care. Always follow your healthcare professional's instructions. Follow Up Care 06/05/2023 23:22:50 With:[facility] Address: [address] [place] [address] [place] [address] [phone] Business (1) When:Within 1 Week(s) Comments:Follow-up as needed if symptoms or not improving.Limit weightbearing and activity as tolerated.Ice and elevate the injured ankle as much as possible.Wear Judah wrap for support and compression.Use naproxen as prescribed for pain and swelling as needed.Return to the ED if symptoms worsen. [facility] 06-06-2023 Note ORIGINAL EXAMINATION: THREE XRAY VIEWS OF THE RIGHT ANKLE 06/06/2023 1:30 am COMPARISON: None. HISTORY: ORDERING SYSTEM PROVIDED HISTORY: Reason for Exam: pain FINDINGS: No acute fracture or dislocation. The joint spaces are maintained. No radiopaque retained foreign body. IMPRESSION: No acute fracture or dislocation. I have personally reviewed the images of this examination and agree with the resident's findings and interpretation. Interpreted by: Randy Rosen MD Preliminary Report By: Alexander Cummings Electronically signed By Randy Rosen MD Dictated Date: 06/06/2023 1:34:51 AM Prelim Date: 06/06/2023 1:35:45 AM Sign Date: 06/06/2023 2:23:50 AM Ordering Provider: KINJAL BRICEÑO [facility] 06-06-2023 Note Discharge Instructions Thank you for allowing [facility] to assist you with your healthcare needs. The following is important discharge information regarding your hospital visit. Diagnosis from Today's Visit Ankle injury - Minor Fall What to Do Next Instructions from Your Care Team No qualifying data available. Post Acute Orders No qualifying data available. You Need to Schedule the Following Appointments Follow Up with [facility] When In 1 week Why: Follow-up as needed if symptoms or not improving. Limit weightbearing and activity as tolerated. Ice and elevate the injured ankle as much as possible. Wear Judah wrap for support and compression. Use naproxen as prescribed for pain and swelling as needed. Return to the ED if symptoms worsen. Where: [address] [place] [address] [place] [address]- [phone] Business (1) Allergies NKA Medications Please ask your primary doctor or pharmacist before taking any other medication not listed, including over the counter drugs, herbal medications, vitamins and or supplements as they may interact with your home medications. What How Much When Instructions Last Dose New naproxen (naproxen 500 mg oral tablet) 1 tab(s) by mouth Two (2) times a day Duration: 7 Days Printed Prescription Unchanged FLUoxetine (FLUoxetine 20 mg oral capsule) TAKE 3 CAPSULES BY MOUTH EVERY DAY FOR ANXIETY/ DEPRESSION Please take this list to your next doctor s visit. Bring all medications you take, including over the counter medications, herbals and other supplements with you to your doctor s visit. Patients and families are reminded to discard old lists and to update any records with all medication providers or retail pharmacies. Education Materials Ankle Sprain (Adult) An ankle sprain is a stretching or tearing of the ligaments that hold the ankle joint together. There are no broken bones. An ankle sprain is a common injury for both children and adults. It happens when the ankle turns, twists, or rolls in an awkward way. This can be caused by a sports injury. Or it can happen from doing something as simple as stepping on an uneven surface. Ligaments are made of tough connective tissue. Normally, ligaments stretch a certain amount and then go back to their normal place. A sprain happens when a ligament is forced to stretch more than the normal amount. A severe sprain can actually tear the ligaments. If you have a severe sprain, you may have felt or heard something like a pop when you were injured. Ankle sprains are given a grade depending on whether they are mild, moderate, or severe: Grade 1 sprain. A mild sprain with minor stretching and damage to the ligament. Grade 2 sprain. A moderate sprain where the ligament is partly torn. Grade 3 sprain. The most severe kind of sprain. The ligament is completely torn. Most sprains take about 4 to 6 weeks to heal. A severe sprain can take several months to recover. Your healthcare provider may order X-rays to be sure you don t have a fracture, or broken bone. The injured area will feel sore. Swelling and pain may make it hard to walk. You may need crutches if walking is painful. Or your provider may have you use a cast boot or air splint. This will depend on the grade of ankle sprain that you have. Home care For a Grade 1 sprain, use RICE (rest, ice, compression, and elevation): Rest your ankle. Don t walk on it. Ice should be used right away to help control swelling. Place an ice pack over the injured area for 20 minutes. Do this every 3 to 6 hours for the first 24 to 48 hours. Keep using ice packs to ease pain and swelling as needed. To make an ice pack, put ice cubes in a plastic bag that seals at the top. Wrap the bag in a clean, thin towel or cloth. Never put ice or an ice pack directly on the skin. The ice pack can be put right on the cast, bandage, or splint. As the ice melts, be careful that the cast, bandage, or splint doesn t get wet. If you have a boot, open it to apply an ice pack, unless told otherwise by your provider. Compression devices help to control swelling. They also keep the ankle from moving and support your injured ankle. These devices include dressings, bandages, and wraps. Elevate or raise your ankle above the level of your heart when sitting or lying down. This is very important for the first 48 hours. Follow the RICE guidelines for a Grade 2 sprain. This type of sprain will take longer to heal. Your provider may have you wear a splint, cast, or brace to keep your ankle from moving. If you have a Grade 3 sprain, you are at risk for long-term ankle instability. In rare cases, surgery may be needed. Your provider may have you wear a short leg cast or a walking boot for 2 to 3 weeks. After 48 hours, it may be helpful to apply heat for 20 minutes several times a day. You can do this with a heating pad or warm compress. Or you may want to go back and forth between using ice and heat. Never apply heat directly to the skin. Always wrap the heating pad or warm compress in a clean, thin towel or cloth. You may use xndt-ueq-wsekjus pain medicine (NSAIDS or nonsteroidal anti-inflammatory drugs) to control pain, unless another pain medicine was prescribed. Talk with your provider before using these medicines if you have chronic liver or kidney disease, or have ever had a stomach ulcer or gastrointestinal bleeding. Follow any rehabilitation exercises your provider gives you. These can help you be more flexible and improve your balance and coordination. This is helpful in preventing long-term ankle problems. Prevention To help prevent ankle sprains, it s important to have good strength, balance, and flexibility. Be sure to: Always warm up before you exercise or do something very active Be careful when walking or running on uneven or cracked surfaces Wear shoes that are in good condition and fit well Listen to your body s signals to slow down when you are in pain or tired Follow-up care Any X-rays you had today don t show any broken bones, breaks, or fractures. Sometimes fractures don t show up on the first X-ray. Bruises and sprains can sometimes hurt as much as a fracture. These injuries can take time to heal completely. If your symptoms don t get better or they get worse, talk with your healthcare provider. You may need a repeat X-ray. Follow up with your healthcare provider, or as advised. Check for any warning signs listed below. When to seek medical advice Call your healthcare provider right away if any of these occur: Fever of 100.4 F (38 C) or higher, or as directed by your healthcare provider Chills The injury doesn t seem to be healing The swelling comes back The cast or splint has a bad smell The plaster cast or splint gets wet or soft The fiberglass cast or splint gets wet and does not dry for 24 hours The pain or swelling increases, or redness appears Your toes become cold, blue, numb, or tingly The skin is discolored (looks blue, purple, or robertson), has blisters, or is irritated You re-injure your ankle [id number] The [employer]. [address] [place] [address], [place] [address]. All rights reserved. This information is not intended as a substitute for professional medical care. Always follow your healthcare professional's instructions. Additional Information VACCINATE! IT SAVES LIVES! Members of the community who have not yet received the COVID-19 vaccine and would like to receive it can visit one of [facility] vaccine clinics. There are many vaccine clinic locations within the [facility]. For locations and available times, please visit www.[email or web address].[place].g [email or web address] It is important to note that some COVID mobile vaccine clinics are held outdoors and may be canceled in rainy or stormy conditions. To learn more about pediatric vaccinations (ages 5-11), we invite you to visit the [facility] webpage. https://www.[place].[email or web address]/pa ges/1887-Yrsru-Pcmsupuqxtq-Freque kpmd-Lbeaf-Xblvwvcxu.html To learn more about the COVID-19 vaccine, we invite you to visit the CDC website for a list of frequently asked questions. https://www.cdc.gov/coronavirus/2 019-ncov/vaccines/faq.html [facility] Patient Portal Access Instructions: Stay connected with your healthcare team and access your personal medical information anytime with the [employer] Patient Portal. If you would like a full copy of your medical records please contact the [facility] Medical Records Department Friday through Friday between 8a.m. and 4:30p.m. Please follow the directions below to access the portal: 1.Access the email account you provided upon registration to the hospital.2.Look for an invitation email from [facility].3.Open the email and access the invitation link: Accept Invitation to [facility].Fill in the required ervin to create your account. Sign into [email or web address] with your username and password that you created in the above steps to stay up to date. You can then view a summary of results, a summary of your visits, and the ability to download your summaries to your computer or send the information securely to a physician. Remember that your healthcare information is confidential, so carefully consider who you will allow to register on the [facility] Patient Portal for access to your information. You can also access the [facility] Patient Portal on the [employer]. Simply click on Health Records under Health Data and then click on the [employer] logo. HOW TO SAFELY DISPOSE OF PRESCRIPTION MEDICATIONS Please use one of the following methods to safely dispose of your unused medications. 1.Use a drug disposal kit: the drug disposal pouch allows you to safely discard your old and unused drugs. Ask your nurse to give you one when you are discharged.2.Visit a local take-back location: Many local pharmacies and police departments have programs that collect old and unwanted prescription drugs. Call your local pharmacy or go to http://[employer] Sportstoys.Wedding Party/1G3Td8y to find one close to you.3.Make use of household items: Use cat litter or old coffee grounds to dispose medications if other options are not available. Mix your drugs with these household products, seal them in an airtight container and throw it into the garbage. Call [facility]: [phone] to be sure your drugs can be disposed of in this way. Some medicines may require a different approach.4.Never flush your medications down the toilet. IF YOU HAVE BEEN PRESCRIBED AN OPIOIDS FOR PAIN If you have been prescribed an opioid (such as hydrocodone, oxycodone or morphine), it is critical to understand the possible side effects and risks of opioid pain medications. Even when taken as directed, opioids can have several side effects including: Tolerance, meaning you might need to take more of a medication for the same pain relief. Nausea, vomiting and/or constipation. Sleepiness, dizziness, dry mouth, confusion, depression or itching. Physical dependence, meaning you have withdrawal symptoms when a medication is stopped ? this can develop within a few days. KNOW YOUR RESPONSIBILITIES It is important to know exactly how much and how often to take the opioid pain medications you are prescribed. Never take opioids in higher amounts or more often than prescribed. Do not combine opioids with alcohol or other drugs that cause drowsiness, such as benzodiazepines, also known as benzos, including diazepam and alprazolam, muscle relaxants or sleep aids. Never sell or share prescription opioids. This is illegal. Store opioids in a secure place and out of reach of others (including children, family, friends and visitors). The last page(s) of this document has been signed and retained as a CHART COPY Signatures Patient Education Materials Ankle Sprain (Adult) Medication Leaflets My discharge plan and instructions have been reviewed and explained to me and SHARRI Johnson ASHLEY N understand my current condition and have read and understand these discharge instructions. I have received a written copy of the plan/instructions. If I have questions, I am aware that I should contact my doctor. Patient/Informatics Spec Signature: Date/Time: Relationship to Patient: ____ Witness Name/Signature: Date/Time: [facility] 06-06-2023 Note ORIGINAL EXAMINATION: THREE XRAY VIEWS OF THE RIGHT ANKLE 06/06/2023 1:30 am COMPARISON: None. HISTORY: ORDERING SYSTEM PROVIDED HISTORY: Reason for Exam: pain FINDINGS: No acute fracture or dislocation. The joint spaces are maintained. No radiopaque retained foreign body. IMPRESSION: No acute fracture or dislocation. I have personally reviewed the images of this examination and agree with the resident's findings and interpretation. Interpreted by: Randy Rosen MD Preliminary Report By: Alexander Cummings Electronically signed By Randy Rosen MD Dictated Date: 06/06/2023 1:34:51 AM Prelim Date: 06/06/2023 1:35:45 AM Sign Date: 06/06/2023 2:23:50 AM Ordering Provider: KINJAL [facility] 12-21-2022 Progress note Note Date/Time December 21, 2022 9:34am [facility] Medical Records Department [address] [place] [address] Progress Note - OBGYN 12/21/22 0933 MR#: [id number] Acct: [id number] Name: ALMA HARRELL CHALO Rep #:[id number] : 2000 22 From: Hasmukh Ivey MD PCP: Dr. Yovanny Navarro MD Status:ADM I N Location: [id number] Subjective Subjective No overnight complaints. Denies depression Objective Data Objective Data Vital Signs: Vital Signs Temp Pulse Resp BP Pulse Ox O2 Del Method 97.8 F 81 16 91/64 96 Room Air 12/21/22 07:46 12/21/22 07:53 12/21/22 07:46 12/21/22 07:53 12/20/22 05:34 12/21/22 07:46 Oxygen Delivery Method Room Air Weight: 204 lb 3.2 oz Body Mass Index (BMI) 31.9 Intake & Output: Intake and Output for Last 24 Hours 12/19/22 12/20/22 12/21/22 23:59 23:59 23:59 Intake Total 1000 / 1000 1556.66 / 1556.66 Output Total 1279 / 1279 Balance 1000 / 1000 277.66 / 277.66 Lab / Micro Data Result Diagrams: 12/19/22 21:35 Physical Exam Const alert, oriented x3, no apparent distress, average body habitus, healthy appearing and well nourished HEENT normocephalic and moist oral mucous membranes Eyes PERRL Neck full ROM Resp normal respiratory effort, no retractions and no use of accessory muscles Extremity normal to inspection and full ROM Neuro moves all extremities and no focal motor deficits Psych mental status grossly normal, affect normal, speech normal and activity/motor behavior normal Assessment & Plan (1) Vaginal delivery: PLAN: day 1 status post delivery 35 weeks. Breast-feeding. Pain well controlled. Patient with history of depression, declines depression at this time educated patient on signs and symptoms of depression to call if has signs or symptoms. Okay to discharge home today if okay with service order taker 12/21/22 0934 <Electronically signed by Hasmukh Ivey MD> Cosigner Signature (if applicable): CC: ~ Signed [facility] Work Phone: 1(632) 555-778601-28-[address] Ivey [facility] December 21, 2022 9:33am Note Date/Time December 20, 2022 4 :42am [facility] Medical Records Department [address] [place] [address] Instructions for Home/Discharge Instructions 12/20/22 0442 MR#: [id number] Acct: [id number] Name: ALMA HARRELL Rep #:[id number] : 2000 22 From: Rosalba huang MD PCP: Dr. Yovanny Navarro MD Status:ADM I N Discharge Instructions Diet Discharge Diet: No restrictions Activity Discharge Activity: Return to Normal Activity, May Drive, May Shower and May Take a Tub Bath (in 4 weeks) May resume sexual activity in: 6-8 weeks (after seen by OB provider) Weight Bearing Status: Full weight bearing Lifting Restrictions: none Dressing / Incision Call your doctor if you observe: Fever of 101 or Higher, Inability to urinate, Using more than 1 pad per hour (for more than 2 hours in a row or more), Shortness of breath, Dizziness, Chest pain and - (headache not controlled with tylenol, change in vision) Follow Up Care When: in 6 weeks for visit, call the office to make the appointment. If you had elevated blood pressures call the office to be seen within 1 week. Test Results: Test results from this visit will be discussed in further detail at your follow- up appointment, if applicable. Discharge Plan Admission Admit Date/Time: 12/19/22 23:25 Attending Provider: Rosalba Edwards Primary Care Provider: Yovanny Navarro Discharge Orders/Prescriptions Prescriptions: No Action PNV no.63-iron,ynlkyopj-DM-rdc 27 mg iron- 800 mcg-200 mg capsule 1 cap PO DAILY Endometrin 100 mg Insert 2 insert VAGINAL DAILY aspirin 81 mg Capsule 81 mg PO DAILY Pepcid 1 tab PO/SL DAILY fluoxetine [Prozac] 40 mg Capsule 40 mg PO DAILY Referrals / Follow Up: Yovanny Navarro MD [Primary Care Provider] - Disposition Disposition (needs filled in before D/C Order can be placed): Home, Self Care 12/20/22 0442<Electronically signed by Rosalba Edwards MD>Rosalba Edwards MD CC: Dr. Yovanny Navarro MD ~ Signed ADDENDUM by Dr. Hasmukh Ivey MD on 12/21/22 at 0933 Patient seen and examined on 12/21/2022. No changes from below 12/21/22 0933<Electronically signed by Hasmukh Ivey MD>Hasmukh Ivey MD cc: Dr. Yovanny Navarro MD ~* Signed [facility] Work Phone: 1(971) 798-327101-27-2023 History and physical note Author Dr. 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 Yovanny Navarro MD Status:ADM I N Location: [place] [id number] HPI - General General Date of Admission: 12/19/22 HPI Narrative ALMA HARRELL, is a 22 F who presents in labor made change to 3-4 cm and then 5 cm. she denies any vb or lof admits good fm. she has had steroid injections twice this for PTL. Maternal Data Information ELIJAH Calculator Estimated Delivery Date Method Current WG Current Estimate 01/18/23 LMP (Certain) 35w 6d PFSH PFS Medical History (Updated 12/20/22 @ 02:[address] Rosalba Edwards MD) Anxiety Family history of hearing loss at age younger than 7 years History of pre-term labor depression Home Medications PNV no.63-iron,carbonyl 27mg-folic acid 800 mcg-dha 200 mg capsule 1 cap PO DAILY 06/12/22 [History Last Taken 12/19/22 19:00] Pepcid 1 tab PO/SL DAILY Check with primary doctor 12/06/22 [History Last Taken 12/19/22 19:00] aspirin 81 mg capsule 81 mg PO DAILY 12/06/22 [History Last Taken 12/19/22 19:00] progesterone micronized 100 mg vaginal insert (Endometrin) 2 insert vaginal DAILY 12/06/22 [History Last Taken 12/19/22 19:00] fluoxetine 40 mg capsule (Prozac) 40 mg PO DAILY anx/dep 12/19/22 [History Last Taken 12/19/22] Allergy/AdvReac Type Severity Reaction Status Date / Time No Known Allergies Allergy Verified 12/18/22 09:03 Surgical History History of tonsillectomy Social History adopted: No household members: spouse and children housing: house number of children: 2 current occupational status: unemployed 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 current occupational exposures/hazards: No pets and animals: Yes pets and animals: dog(s) history of recent travel: No sexually active: Yes Smoking Status: Never smoker alcohol intake: never substance use type: does not use well-balanced diet: daily or most days caffeine: Yes (occasional) Type: carbonated beverages eating out: 1-3 times/week what type of physical activity do you participate in: walking frequency: 3-4 times per week duration: 45-60 minutes/day charlie/yarsani: None seatbelt use: always do you feel safe at home: Yes additional social history: Dagoberto- Works for [employer] 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 Date Name GA/Weeks Outcome Route Bth Weight Infant Gen Labor Lgth Anesthesia Del Locatn Provider FOB 05/12/18 [place] 32 live - 4lb 7 oz Female s tarted at 20 weeks none [facility] 09/08/19 [place] 34 live - 6.[address] [facility] [address]. Mika Richardson Delivery Date: 09/08/19 Last Updated by: Delia Street transferred to [facility] Visit Details Expected Delivery Route/Plan Labor Preferences- CB/BF classes: done labor support person:dagoberto labor intervention preferences: [] pain management options preferred: breathing cut cord/dad catch: yes : yes PP control planned: discussed discussed possible routes of delivery and associated risks: [] special requests: [] Plans Covid status: declined Flu vaccine: declined Tdap vaccine: given Rhogam: n/a LARC form signed: yes Problem list reviewed and updated with the most current plan of care details and appropriate orders placed. Relevant counseling for the gestational age provided. Continue routine care and follow up unless otherwise noted in visit notes/problem list details OB Flowsheet Initial Weight: Not Recorded Date -?-?-?-?-?-?-?-?-?-?-?-?- EGA Weight BP Urine Prot -?-?-?-?-?-?-?-?-?-?-?-?- Glucose FHR FuHt Pres Dilation -?-?-?-?-?-?-?-?-?-?-?-?- Effaced St Visit Note 06/17/22 -?-?-?-?-?-?-?-?-?-?-?-?- 9w 2d 186 lb 100/80 -?-?-?-?-?-?-?-?-?-?-?-?- 160 -?-?-?-?-?-?-?-?-?-?-?-?- CRL 2 cm cons wi th lMP 07/17/22 -?-?-?-?-?-?-?-?-?-?-?-?- 13w 4d 183 lb 6 oz 120/70 Nega tive -?-?-?-?-?-?-?-?-?-?-?-?- Negative 130 -?-?-?-?-?-?-?-?-?-?-?-?- JV- pt states th at libido is declined since starting 40 mg of the antidepressant. also wonders if jonah is going to be given on time (16 weeks) no cramping or spotting. will dec dose to 20 and find out progress on jonah approval. 08/13/22 -?-?-?-?-?-?-?-?-?-?-?-?- 17w 3d 186 lb 8 oz 116/76 Nega tive -?-?-?-?-?-?-?-?-?-?-?-?- Negative 143 -?-?-?-?-?-?-?-?-?-?-?-?- -No VB, crampi ng. Feeling flutters. Will get CL US [facility] next week. Anatomy US with MFM 08/2309/13/22 -?-?--?-?-?-?-?-?-?-?-?-?- 21w 6d 195 lb 8 oz 108/72 Nega tive -?-?-?-?-?-?-?-?-?-?-?-?- 1000 g/dL 140 21 -?-?-?-?-?-?-?-?-?-?-?-?- LC- no vb,crampi ng. normal anatomy scan. cont with q2week CL. last 34.9mm. on jonah. elevated urine glucose. finger glucose=9 3. has not eaten yet today. 10/11/22 -?-?-?-?-?-?-?-?-?-?-?-?- 25w 6d 198 lb 112/78 Negative -?-?-?-?-?-?-?-?-?-?-?-?- Negative 145 26 -?-?-?-?-?-?-?-?-?-?-?-?- SM- no vb lof go od fm no regular ctx 10/31/22 -?-?-?-?-?-?-?-?-?-?-?-?- 28w 5d 194 lb 4 oz 116/72 Nega tive -?-?-?-?-?-?-?-?-?-?-?-?- Negative 142 28 -?-?-?-?-?-?-?-?-?-?-?-?- MH-No VB, LOF. G ood FM. Had Covid 2 wks ago. Start baby ASA daily and growth US 32 and 36 wk. 28 wk labs, tdap, larc 11/14/22 -?-?-?-?-?-?-?-?-?-?-?-?- 30w 5d 197 lb 100/65 -?-?-?-?-?-?-?-?-?-?-?-?- 145 30 -?-?-?-?-?-?-?-?-?-?-?-?- JV- no lof, vagi nal bleeding, or dec fm. no complaints today. normal 3 hr. concerns that patient filled her urine cup with water. is taking baby asa for covid 2 weeks ago 11/29/22 -?-?-?-?-?-?-?-?-?-?-?-?- 32w 6d 201 lb 109/77 Negative -?-?-?-?-?-?-?-?-?-?-?-?- Negative 145 33 -?-?-?-?-?-?-?-?-?-?-?-?- Sm- no vb lof go od fm n oregular ctx 12/18/22 -?-?-?-?-?-?-?-?-?-?-?-?- 35w 4d 204 lb 4 oz 103/69 Nega tive -?-?-?-?-?-?-?-?-?-?-?-?- Negative 147 34 -?-?-?-?-?-?-?-?-?-?-?-?- JV- no lof, vagi nal bleeding, or dec fm. continue vaginal progesterone through 36 weeks. 12/19/22 -?-?-?-?-?-?-?-?-?-?-?-?- 35w 5d 204 lb 3.2 oz 133/75 128/84 120/79 121/73 113/63 114/64 121/70 115/66 -?-?-?-?-?-?-?-?-?-?-?-?- -?-?-?-?-?-?-?-?-?-?-?-?- NST FHR Rate Baby A Baseline: 140 Variability:: Moderate Accelerations:: 15 x 15 Decelerations:: None NST Reactive:: Yes FHR Category:: Category I Uterine Activity:: q3-5 ROS Constitutional Constitutional: Reports systems reviewed and no addt'l complaints, except as documented ENT HEENT: Reports systems reviewed and no addt'l complaints, except as documented Cardiovascular Cardiovascular: Reports systems reviewed and no addt'l complaints, except as documented Respiratory/Chest Respiratory/Chest: Reports systems reviewed and no addt'l complaints, except as documented Gastrointestinal Gastrointestinal: Reports systems reviewed and no addt'l complaints, except as documented and nausea; Denies abdominal pain Genitourinary Genitourinary: Reports systems reviewed and no addt'l complaints, except as documented, contractions Details: present and frequency (regular ) and movement Details: present Musculoskeletal Musculoskeletal: Reports systems reviewed and no addt'l complaints, except as documented Integumentary Integumentary: Reports as per HPI Neurologic Neurologic: Reports systems reviewed and no addt'l complaints, except as documented Endocrine Endocrinology: Reports systems reviewed and no addt'l complaints, except as documented Vital Signs Vital Signs Vital Signs: 12/19/22 20:56 12/19/22 20:57 12/19/22 20:57 Temperature Temperature Source Pulse Rate 105 H Blood Pressure 133/75 H BP Systolic 133 BP Diastolic 75 Pulse Ox 98 12/19/22 20:57 12/19/22 20:57 12/20/22 00:22 Temperature 98.2 F Temperature Source Temporal Pulse Rate 94 Blood Pressure BP Systolic BP Diastolic Pulse Ox 12/20/22 00:22 12/20/22 00:27 12/20/22 00:27 Temperature Temperature Source Pulse Rate 113 H Blood Pressure BP Systolic BP Diastolic Pulse Ox 99 97 12/20/22 00:32 12/20/22 00:32 12/20/22 00:37 Temperature Temperature Source Pulse Rate 104 H 97 Blood Pressure BP Systolic BP Diastolic Pulse Ox 99 12/20/22 00:37 12/20/22 00:39 12/20/22 00:39 Temperature Temperature Source Pulse Rate 91 Blood Pressure 128/84 H BP Systolic 128 BP Diastolic 84 Pulse Ox 99 12/20/22 00:42 12/20/22 00:42 12/20/22 00:47 Temperature Temperature Source Pulse Rate 93 88 Blood Pressure BP Systolic BP Diastolic Pulse Ox 99 12/20/22 00:47 12/20/22 00:52 12/20/22 00:52 Temperature Temperature Source Pulse Rate 103 H Blood Pressure BP Systolic BP Diastolic Pulse Ox 99 98 12/20/22 00:53 12/20/22 00:53 12/20/22 00:55 Temperature Temperature Source Pulse Rate 120 H Blood Pressure 120/79 121/73 H BP Systolic 120 121 BP Diastolic 79 73 Pulse Ox 12/20/22 00:55 12/20/22 00:57 12/20/22 00:57 Temperature Temperature Source Pulse Rate 103 H 101 H Blood Pressure BP Systolic BP Diastolic Pulse Ox 99 12/20/22 01:02 12/20/22 01:02 12/20/22 01:02 Temperature Temperature Source Temporal Pulse Rate 101 H Blood Pressure BP Systolic BP Diastolic Pulse Ox 98 12/20/22 01:02 12/20/22 01:07 12/20/22 01:07 Temperature 98.4 F Temperature Source Pulse Rate 108 H Blood Pressure BP Systolic BP Diastolic Pulse Ox 99 12/20/22 01:08 12/20/22 01:08 12/20/22 01:12 Temperature Temperature Source Pulse Rate 90 94 Blood Pressure 113/63 BP Systolic 113 BP Diastolic 63 Pulse Ox 12/20/22 01:12 12/20/22 01:17 12/20/22 01:17 Temperature Temperature Source Pulse Rate 111 H Blood Pressure BP Systolic BP Diastolic Pulse Ox 97 99 12/20/22 01:22 12/20/22 01:22 12/20/22 01:22 Temperature Temperature Source Pulse Rate 90 Blood Pressure 114/64 BP Systolic 114 BP Diastolic 64 Pulse Ox 98 12/20/22 01:27 12/20/22 01:27 12/20/22 01:32 Temperature Temperature Source Pulse Rate 88 87 Blood Pressure BP Systolic BP Diastolic Pulse Ox 98 12/20/22 01:32 12/20/22 02:05 12/20/22 02:05 Temperature Temperature Source Pulse Rate 86 Blood Pressure 121/70 H BP Systolic 121 BP Diastolic 70 Pulse Ox 97 12/20/22 02:06 12/20/22 02:06 12/20/22 02:21 Temperature Temperature Source Pulse Rate 83 93 Blood Pressure 115/66 BP Systolic 115 BP Diastolic 66 Pulse Ox 12/20/22 02:21 12/20/22 02:26 12/20/22 02:26 Temperature Temperature Source Pulse Rate 93 Blood Pressure BP Systolic BP Diastolic Pulse Ox 98 98 12/20/22 02:31 12/20/22 02:31 Temperature Temperature Source Pulse Rate 85 Blood Pressure BP Systolic BP Diastolic Pulse Ox 99 Weight Weight: 204 lb 3.2 oz Body Mass Index (BMI) 31.9 Physical Exam Const alert, oriented x3 and healthy appearing Constitutional Narrative: uncomfortable with contractions HEENT normocephalic and moist oral mucous membranes Head and Scalp: atraumatic Neck full ROM, no lymphadenopathy, supple and thyroid normal General: trachea midline Thyroid: thyroid normal Lymph Lymphatic: no lymphadenopathy noted Chest inspection of chest normal Resp normal respiratory effort Cardio regular rate GI normal to inspection, nondistended, normoactive bowel sounds, soft to palpation and non-tender Inspection: gravid external exam normal Bimanual Exam - Vag & Uterus: uterus non-tender Manual OB Exam: estimated gestational size appropriate, presentation cephalic, dilated, effaced and station Extremity normal to inspection General Extremity: Negative for edema Skin no rashes or lesions noted Neuro deep tendon reflexes 2+ bilaterally Motor Exam: strength 5/5 throughout and clonus absent Psych mental status grossly normal Labs Labs Labs: Blood Type A POSITIVE Antibody Screen NEGATIVE Hct 36.3 % (37-47) L Hgb 12.7 g/dL (12.0-15.0) Obstetrics US Syphilis Total Ab Non-reactive Rubella IgG Antibody Reactive (Nonreactive) Hep Bs Antigen Non-Reactive (Nonreactive) Chlamydia DNA (KATEY) Negative (Negative) Neisseria gonorrhoeae DNA (KATEY) Negative (Negative) HIV 1&2 Antibody Non-Reactive (Nonreactive) Glucose 1 Hr 50 gm 154 mg/dL (70-140) H Group B Strep DNA Negative (Negative) Rhogam given: No Miscellaneous Test Assessment & Plan (1) Abnormal glucose affecting : COMMENT: nl 3 hr gtt (2) COVID-19 affecting childbirth: COMMENT: + late September. Taking baby ASA daily, 32 and 36 wk US, 11/26/22 nl growth (3) UTI symptoms: COMMENT: neg urine culture (4) Anxiety and depression: COMMENT: celexa increased to 40 mg encouraged counseling/improved (5) History of labor: COMMENT: delivered at 32 weeks and 34 weeks in prior pregnancies, plan jonah injections. US for CL E/O week, 09/09 CL 31.4mm. 10/02/22 Sto[ Jonah injections due to SE. Start progesterone vaginally at hs. (6) Supervision of high risk , antepartum: COMMENT: PRR , ELIJAH 01/18/23 girl, PC Rachel 4yo & [place] 2yo Spouse Dagoberto (7) : QUALIFIERS: Weeks of gestation: 35 weeks Qualified Code(s): Z3A.35 - 35 weeks gestation of COMMENT: anatomy nl, NIPT low risk, declined Carrier testing,10/31 abnormal 1 HR GCT, 3 HR GTT nl (8) Thyromegaly: COMMENT: labs and us nl (9) labor: PLAN: Plan Patient presents IAL, plan expectant management for , arom clear fluid at 6 cm Pain management: epidural. GBS negative. Management of any complications: PTL- s/p bmz x 2 courses previously I have reviewed the PFSH and made any clinically relevant updates. 12/20/22 0248 <Electronically signed by Rosalba Edwards MD> Cosigner Signature (if applicable): CC: Dr. Yovanny Navarro MD; Dr. Rosalba Edwards MD~ Signed [facility] Work Phone: [phone]) 777-997201-27-2023 Procedure [facility] 10-22-2022 History of Present illness Narrative* Jesusita Noe APRN.BATTERY CHARGER CONVEYOR LINE - 10/22/2022 6:03 PM EST CC: Patient presents with: Cough: Cough, SOB and runny nose x 4 days 27 weeks HPI: Alma Harrell is a 22 year old female who presents to the office with complaint of cough, nonproductive and rhinorrhea for a few days. Symptoms are staying the same. Associated symptoms includes cough. Denies nausea, vomiting , and diarrhea. Treatments tried include nothing so far. with no relief of symptoms. Sick contacts: unknown. History of asthma, frequent episodes of bronchitis, chronic bronchitis, bronchiectasis or COPD: No Smoker: No Seasonal/environmental allergies: No The ROS is otherwise negative. The patient's pmh, medications, allergies, and past visits are reviewed. PHYSICAL EXAM: BP 110/78 Pulse 105 Temp 37.1 C (98.7 F) (Tympanic) Resp 16 Wt 87.5 kg (193 lb) LMP 04/12/2022 (Exact Date) SpO2 99% BMI 30.23 kg/m General appearance: alert, cooperative, pleasant, in no acute distress Head: Normocephalic Eyes: EOM's intact, conjunctiva pink and moist, no icterus, sclera white, non-injected Ears: Right ear: External ear/canal- Normal, TM - clear with good landmarks. Left ear: External ear/canal- Normal, TM - clear with good landmarks Oropharynx:moist without lesions, No erythema, exudates or tonsillar hypertrophy. Heart: Negative. RRR without obvious murmur, gallop, or rubs. No ectopy. Lungs: clear to auscultation, without rales or wheeze, good air exchange PAST MEDICAL HISTORY Diagnosis Date Anxiety disorder Depression Mood changes depression 09/23/2018 PAST SURGICAL HISTORY Procedure Laterality Date NONE ALLERGIES Patient has no known allergies. MEDICATIONS citalopram (CELEXA) 20 mg tablet Take 20 mg by mouth once daily. Wgaftmlm-Mk-Zpy-Fe-FA ( VITAMIN) tab Take 1 tablet by mouth once daily. Clindamycin-Benzoyl Peroxide 1.2 %(1 % base) -5 % gel Apply 1 application to affected area once daily. sertraline (ZOLOFT) 100 mg tablet Take 1 tablet by mouth once daily. (Patient not taking: Reported on 07/26/2022) Norethindrone, Contraceptive, (ORTHO MICRONOR) 0.35 mg tablet Take 1 tablet by mouth once daily. (Patient not taking: Reported on 07/26/2022) FAMILY HISTORY Problem Relation Age of Onset Diabetes Maternal Grandmother Social History Tobacco Use Smoking status: Never Smokeless tobacco: Never Substance Use Topics Alcohol use: No Drug use: No ASSESSMENT/PLAN: 1. URI, acute - ICD9: 465.9, ICD10: J06.9 - COVID WITH FLUA+B, ROUTINE Prescription instructions reviewed with patient as applicable. Potential red flag symptoms discussed with the patient. Reviewed appropriate action plan to take if red flag symptoms occur. Patient agreeable to treatment plan. Jesusita Noe APRN.BATTERY CHARGER CONVEYOR LINE [facility] Discharge instructions Patient Education 11/18/2021 18:32:11 Headache, Unspecified Headache, Unspecified A number of things can cause headaches. The cause of your headache isn t clear. But it doesn t seemto be a sign of any serious illness. Headache affects almost everyone at some time. It is the most common reason people miss days from work or school. You could have a tension headache or a migraine headache. Stress can cause a tension headache. This can happen if you tense the muscles of your shoulders, neck, and scalp without knowing it. If this stress lasts long enough, you may develop a tension headache. It is not clear why migraines occur, but certain things called triggers can raise the risk of having a migraine attack. Migraine triggers may include emotional stress or depression, or by hormone changes during the menstrual cycle. Other triggers include control pills and other medicines, alcohol or caffeine, foods with tyramine (such as aged cheese, wine), eyestrain, weather changes, missed meals, and lack of sleep or oversleeping. Other causes of headache include: Viral illness with high fever Head injury with concussion Sinus, ear, or throat infection Dental pain and jaw joint (TMJ) pain More serious but less common causes of headache include stroke, brain hemorrhage, brain tumor, meningitis, and encephalitis. Home care Follow these tips when taking care of yourself at home: Don t drive yourself home if you were given pain medicine for your headache. Instead, have someone else drive you home. Try to sleep when you get home. You should feel much better when you wake up. Apply heat to the back of your neck to ease a neck muscle spasm. Take care of a migraine headache by putting an ice pack on your forehead or at the base of your skull. If you have nausea or vomiting, eat a light diet until your headache eases. If you have a migraine headache, use sunglasses when in the daylight or around bright indoor lighting until your symptoms get better. Bright glaring light can make this type of headache worse. Follow-up care Follow up with your healthcare provider, or as advised. Talk with your provider if you have frequent headaches. He or she can help figure out a treatment plan. By knowing the earliest signs of headache, and starting treatment right away, you may be able to stop the pain yourself. When to seek medical advice Call your healthcare provider right away if any of these occur: Your head pain suddenly gets worse after sexual intercourse or strenuous activity Your head pain doesn t get better within 24 hours You aren t able to keep liquids down (repeated vomiting) Fever of 100.4 F (38 C) or higher, or as directed by your healthcare provider Stiff neck Extreme drowsiness, confusion, or fainting Dizziness or dizziness with spinning sensation (vertigo) Weakness in an arm or leg or one side of your face You have trouble talking or seeing [id number] [employer]. [address] [place] [address], [place] [address]. All rights reserved. This information is not intended as a substitute for professional medical care. Always follow yourhealthcare professional's instructions. Follow Up Care 11/18/2021 15:15:02 With:ELHAM HENDERSON MD, [facility], Surgery, Vascular Surgeons Address: [facility] [address] [place] [address] [address] [place] [address] When:2-4 days [facility] 06-24-2018 History of Past illness Narrative* Problem Noted Date Resolved Date Abdominal pain 05/17/2018 05/17/2018 uterine contractions in third trimester, antepartum 05/10/2018 06/11/2018 Urinary tract infection 05/07/2018 09/23/20 18 Syncope 05/04/2018 09/23/2018 Decreased movement 04/30/2018 018 uterine contractions 04/30/2018 Vaginal bleeding in , second trimester 04/12/2018 05/04/2018 documented as of this encounter (statuses as of 10/22/2022) [facility] of Past illness Narrative* Problem Noted Date Diagnosed Date Resolved Date Abdominal pain 05/17/2018 05/17/2018 uterine contractions in third trimester, antepartum 05/10/2018 06/11/2018 Urinary tract infection 05/07/201808/26 Syncope 05/04/2018 09/23/2018 Decreased movement 04/30/201809/2018 uterine contractions 04/30/2018 06/11/2018 Vaginal bleeding in pregnanc y, second trimester 04/12/2018 05/04/2018 documented as of this encounter (statuses as of 09/09/2023) [facility] of Past illness Narrative* Problem Noted Date Diagnosed Date Resolved Date Abdominal pain 05/17/2018 05/17/2018 uterine contractions in third trimester, antepartum 05/10/2018 06/11/2018 Urinary tract infection 05/07/201808/26 Syncope 05/04/2018 09/23/2018 Decreased movement 04/30/201809/2018 uterine contractions 04/30/2018 06/11/2018 Vaginal bleeding in pregnanc y, second trimester 04/12/2018 05/04/2018 documented as of this encounter (statuses as of 11/13/2023) [facility] No data available for this section [facility] Evaluation + Plan note Future Appointments Appointment Date:01/05/2024 02:30:00 PM Scheduled Provider:DAI PAINTING Location:[facility] [place] Appointment Type:PC OV Hospital Follow-Up Appointment Date:01/12/2024 02:50:00 PM Scheduled Provider:MARIPOSA BOWER MD Location:[facility] [place] 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 Future Scheduled Tests Laboratory* Complete Blood Count 09/10/23 * Complete Metabolic Panel 09/10/23 [facility] Evaluation + Plan note Future Appointments Appointment Date:01/29/2024 01:40:00 PM Scheduled Provider:MARIPOSA BOWER MD Location:[facility] [place] Appointment Type: OV Check after Test Future Scheduled Tests Laboratory* Complete Blood Count 09/10/23 * Complete Metabolic Panel 09/10/23 [facility] [email or web address] noteNo assessment information available [facility] Work Phone: evaluation note* Diagnosis Onset Date Resolution Status Anxiety and depression acute History of labor acu te acute Supervision of high risk , antepartum acute Thyromegaly [facility] Work Phone: [employer] evaluation note* Diagnosis Onset Date Resolution Status Anxiety and depression acute History of labor acu te acute Supervision of high risk , antepartum acute Thyromegaly acute Anxiety and depression acute History of labor acu te acute Supervision of high risk , antepartum acute Thyromegaly [facility] Work Phone: evaluation note* Diagnosis Onset Date Resolution Status Anxiety and depression acute History of labor acu te acute Supervision of high risk , antepartum acute Thyromegaly acute Anxiety and depression acute History of labor acu te acute Supervision of high risk , antepartum acute Thyromegaly acute Anxiety and depression acute History of labor acu te acute Supervision of high risk , antepartum acute [facility] Work Phone: Evaluation note* Diagnosis Onset Date Resolution Status Anxiety and depression acute History of labor acu te acute Supervision of high risk , antepartum acute Thyromegaly acute Anxiety and depression acute History of labor acu te acute Supervision of high risk , antepartum acute Thyromegaly acute Anxiety and depression acute History of labor acu te acute Supervision of high risk , antepartum acute Right flank pain acute Supervision of high risk , antepartum acute UTI symptoms acute [facility] Work Phone: Evaluation note* Diagnosis URI, acute- Primary Acute upper respiratory infections of unspecified site [facility] Diagnosis Onset Date Resolution Status Anxiety and depression acute History of labor acu te acute Supervision of high risk , antepartum acute Right flank pain acute Supervision of high risk , antepartum acute UTI symptoms acute Anxiety and depression acute History of labor acu te acute Supervision of high risk , antepartum acute Thyromegaly acute Anxiety and depression acute History of labor acu te acute Right flank pain acute Supervision of high risk , antepartum acute Thyromegaly acute UTI symptoms acute Anxiety and depression acute COVID-19 affecting childbirth acute History of labor acu te acute Supervision of high risk , antepartum acute Anxiety and depression acute COVID-19 affecting childbirth acute History of labor acu te acute Right flank pain acute Supervision of high risk , antepartum acute Thyromegaly acute UTI symptoms [facility] Work Phone: Evaluation note* Diagnosis Onset Date Resolution Status Anxiety and depression acute History of labor acu te acute Supervision of high risk , antepartum acute Supervision of high risk , antepartum acute UTI symptoms acute Right flank pain resolved Anxiety and depression acute History of labor acu te acute Supervision of high risk , antepartum acute Thyromegaly acute Anxiety and depression acute History of labor acu te acute Supervision of high risk , antepartum acute Thyromegaly acute UTI symptoms acute Right flank pain resolved Anxiety and depression acute COVID-19 affecting childbirth acute History of labor acu te acute Supervision of high risk , antepartum acute Anxiety and depression acute COVID-19 affecting childbirth acute History of labor acu te acute Supervision of high risk , antepartum acute Thyromegaly acute UTI symptoms acute Right flank pain resolved Abnormal glucose affecting acute Anxiety and depression acute COVID-19 affecting childbirth acute History of labor acu te acute Supervision of high risk , antepartum acute Thyromegaly acute UTI symptoms acute Abnormal glucose affecting acute Anxiety and depression acute COVID-19 affecting childbirth acute History of labor acu te acute Supervision of high risk , antepartum acute Threatened labor, antepartum acute Thyromegaly acute UTI symptoms acute [facility] Work Phone: Evaluation note* Diagnosis Onset Date Resolution Status Supervision of high risk , antepartum acute UTI symptoms acute Right flank pain resolved Anxiety and depression acute History of labor acu te acute Supervision of high risk , antepartum acute Thyromegaly acute Anxiety and depression acute History of labor acu te acute Supervision of high risk , antepartum acute Thyromegaly acute UTI symptoms acute Right flank pain resolved Anxiety and depression acute COVID-19 affecting childbirth acute History of labor acu te acute Supervision of high risk , antepartum acute Anxiety and depression acute COVID-19 affecting childbirth acute History of labor acu te acute Supervision of high risk , antepartum acute Thyromegaly acute UTI symptoms acute Right flank pain resolved Abnormal glucose affecting acute Anxiety and depression acute COVID-19 affecting childbirth acute History of labor acu te acute Supervision of high risk , antepartum acute Thyromegaly acute UTI symptoms acute Abnormal glucose affecting acute Anxiety and depression acute COVID-19 affecting childbirth acute History of labor acu te acute Supervision of high risk , antepartum acute Threatened labor, antepartum acute Thyromegaly acute UTI symptoms acute [facility] Work Phone: Evaluation note* Diagnosis Onset Date Resolution Status Anxiety and depression resol angelita History of labor res olved resolved Supervision of high risk , antepartum resolved Thyromegaly resolved Anxiety and depression resol angelita History of labor res olved resolved Right flank pain resolved Supervision of high risk , antepartum resolved Thyromegaly resolved UTI symptoms resolved Anxiety and depression resol angelita COVID-19 affecting childbirth resolved History of labor res olved resolved Supervision of high risk , antepartum resolved Anxiety and depression resol angelita COVID-19 affecting childbirth resolved History of labor res olved resolved Right flank pain resolved Supervision of high risk , antepartum resolved Thyromegaly resolved UTI symptoms resolved Abnormal glucose affecting resolved Anxiety and depression resol angelita COVID-19 affecting childbirth resolved History of labor res olved resolved Supervision of high risk , antepartum resolved Thyromegaly resolved UTI symptoms resolved Abnormal glucose affecting resolved Anxiety and depression resol angelita COVID-19 affecting childbirth resolved History of labor res olved resolved Supervision of high risk , antepartum resolved Threatened labor, antepartum resolved Thyromegaly resolved UTI symptoms resolved Abnormal glucose affecting resolved Anxiety and depression resol angelita COVID-19 affecting childbirth resolved History of labor res olved resolved Supervision of high risk , antepartum resolved Threatened labor, antepartum resolved Thyromegaly resolved UTI symptoms resolved Vaginal delivery acute Abnormal glucose affecting resolved Anxiety and depression resol angelita COVID-19 affecting childbirth resolved History of labor res olved resolved labor resolved Supervision of high risk , antepartum resolved Thyromegaly resolved UTI symptoms resolved [facility] Work Phone: Evaluation note* Diagnosis Tachycardia- Primary Tachycardia, unspecified Right upper quadrant pain Abdominal pain, right upper quadrant [facility]* Diagnosis Chronic fatigue- Primary Other malaise and fatigue Positive CASSANDRA (antinuclear antibody) Other and unspecified nonspecific immunological findings documented in this encounter [facility] note* Diagnosis Sore throat- Primary Acute pharyngitis Acute non-recurrent streptococcal tonsillitis documented in this encounter [facility] note* Diagnosis Strep throat- Primary Streptococcal sore throat Sore throat Acute pharyngitis documented in this encounter [facility] Discharge instructions No data available for this section [facility] Note* Nancy Estrada RN: PERFORM Event Display: [facility] Patient Summary Authored Date: Discharge Instructions Thank you for allowing [facility] to assist you with your healthcare needs. The following is importantdischarge information regarding your hospital visit. 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 MARIPOSA BOWER Your Diagnosis Acute post-operative pain What to do next Follow Up Appointments Follow Up with MARIPOSA BOWER MD, Surgery When Why: CALL DR BOWER'S OFFICE WITH ANY QUESTIONS OR CONCERNS AND TO MAKE A 2 WEEK FOLLOW UP APPOINTMENT. GO TO THE EMERGENCY ROOM WITH ANY URGENT CONCERNS. Where: [address] [facility] [place] [place] [address]- [phone] The Following Activity and Diet Have Been Ordered for You Discharge Activity - Ordered -- Sexual [place] Restricted No bending, twisting, crawling or squatt, No shower or tub bath for 2 days; no driving for 5 days, no lifting >15 lbs, 02/19/24 11:53:00 EDT Discharge Diet - Ordered -- Follow the post-operative/post-procedure diet instructions provided by your physician's office.,02/19/24 11:53:00 EDT The Following Equipment Has Been Ordered for You Discharge Home Equipment Discharge Wound Care - Ordered -- Dressing Type: Dry sterile drsg, Remove dressing in two (2) days. Leave steristrips on until they fall off, 02/19/24 11:53:00 EDT Allergies NKA Medications Please ask your primary doctor or pharmacist before taking any other medication not listed, including over the counter drugs, herbal medications, vitamins and or supplements as they may interact withyour home medications. What How Much When Why Instructions Last Dose New acetaminophen-hydrocodone (Sigel 325- 5 mg oral tablet) 1 tab(s) by mouth Every 4 hours as needed for Pain, scale 1-6 Acute post-operative pain Duration: 5 Days Pickup at [facility]/pharmacy #[id number] Unchanged ondansetron (ondansetron 4 mg oral tablet, disintegrating) Pharmacy Information [facility]/pharmacy #[id number]: [address], [place] [id number] [phone] Please take this list to your next doctor s visit. Bring all medications you take, including over the counter medications, herbals and other supplements with you to your doctor s visit. Patients and families are reminded to discard old lists and to update any records with all medication providers or retail pharmacies. Medication Leaflets bupivacaine liposome (bue PIV a moreno LYE bridgette some) Exparel What is the most important information I should know about bupivacaine liposome? You may still feel numb or be unable to move the numbed area for up to 5 days after you are treatedwith bupivacaine liposome. What is bupivacaine liposome? Bupivacaine is an anesthetic (numbing medicine) that blocks nerve impulses in your body. Bupivacaine liposome is used as a local (in only one area) anesthetic to numb an area of your body for a minor surgery such as bunion removal or hemorrhoid surgery. Bupivacine liposome is also used as a nerve block after surgery on your shoulder or upper arm, to provide pain relief to the area. Bupivacaine may also be used for purposes not listed in this medication guide. What should I discuss with my healthcare provider before receiving bupivacaine liposome? You should not be treated with bupivacaine if you are allergic to it. Tell your doctor if you have ever had: an allergic reaction to any type of numbing medicine; liver disease; kidney disease; heart disease; a heart rhythm disorder; or seizures. It is not known whether this medicine will harm an unborn baby. Tell your doctor if you are . It may not be safe to breast-feed a baby while you are using this medicine. Ask your doctor about any risks. How is bupivacaine liposome given? Bupivacaine is given as an injection placed into an area near your surgical incision. You will receive this injection in a hospital or surgical setting. Bupivacaine liposome can have long-lasting or delayed effects. For at least 4 days (96 hours) afteryour surgery, tell any doctor or dentist who treats you that you recently received a bupivacaine liposome injection. Call your doctor if you have joint pain or stiffness, or weakness in any part of your body that occurs after your surgery, even months later. What happens if I miss a dose? Since bupivacaine liposome is used as a single dose, it does not have a daily dosing schedule. What happens if I overdose? Since this medication is given by a healthcare professional in a medical setting, an overdose is unlikely to occur. What should I avoid after receiving bupivacaine liposome? For at least 4 days (96 hours) after surgery, avoid using any pain or numbing medicines that contain lidocaine. This includes skin patches, sprays, creams, ointments, or gels applied to the skin. Follow your doctor's instructions. What are the possible side effects of bupivacaine liposome? Get emergency medical help if you have signs of an allergic reaction: hives, red rash, itching; sneezing, difficulty breathing; severe dizziness, vomiting; swelling of your face, lips, tongue, or throat. You will be watched closely after receiving bupivacaine liposome, to make sure you do not have a reaction to the medicine. Tell your caregivers at once if you have any of these signs of a serious side effect: ringing in your ears; drowsiness, feeling restless or anxious; feeling like you might pass out; speech or vision problems, a metallic taste in your mouth; numbness or tingling around your mouth; fast or slow heart rate, feeling short of breath, feeling unusually hot or cold; tremors, twitching, mood changes; ongoing numbness, weakness, or loss of movement where the medicine was injected; or joint pain or stiffness, or weakness in any part of your body for months after your surgery. You may still feel numb or be unable to move the numbed area for up to 5 days after you are treatedwith bupivacaine liposome. Common side effects include: nausea, vomiting; constipation; or fever. This is not a complete list of side effects and others may occur. Call your doctor for medical advice about side effects. You may report side effects to FDA at 8-538-HSL-6050. What other drugs will affect bupivacaine liposome? Other drugs may affect bupivacaine liposome, including prescription and gtkj-exx-ompfuev medicines,vitamins, and herbal products. Tell your doctor about all your current medicines and any medicine you start or stop using. Where can I get more information? Your doctor or pharmacist can provide more information about bupivacaine liposome. Remember, keep this and all other medicines out of the reach of children, never share your medicines with others, and use this medication only for the indication prescribed. Every effort has been made to ensure that the information provided by [employer] is accurate, up-to-date, and complete, but no guarantee is made to that effect. Drug information contained herein may be time sensitive. [employer] information has been compiled for use by healthcare practitioners and consumers in the [place] and therefore [employer] does not warrant that uses outside of the [place] are appropriate, unless specifically indicated otherwise. [facility] drug information does not endorse drugs, diagnose patients or recommend therapy. [facility] drug information isan informational resource designed to assist licensed healthcare practitioners in caring for their p atients and/or to serve consumers viewing this service as a supplement to, and not a substitute for, the expertise, skill, knowledge and judgment of healthcare practitioners. The absence of a warningfor a given drug or drug combination in no way should be construed to indicate that the drug or drug combination is safe, effective or appropriate for any given patient. [facility] does not assume any responsibility for any aspect of healthcare administered with the aid of information [facility] provides. The information contained herein is not intended to cover all possible uses, directions, precautions, warnings, drug interactions, allergic reactions, or adverse effects. If you have questions about the drugs you are taking, check with your doctor, nurse or pharmacist. Copyright 3778-0077 [facility]. Version: 4.01. Revision Date: 03/16/2018. acetaminophen and hydrocodone (a SEET a MIN oh fen and blade droe KOE done) Lortab Elixir, Verdrocet What is the most important information I should know about acetaminophen and hydrocodone? MISUSE OF OPIOID MEDICINE CAN CAUSE ADDICTION, OVERDOSE, OR . Keep the medication in a place where others cannot get to it. Taking opioid medicine during may cause life-threatening withdrawal symptoms in the . Fatal side effects can occur if you use opioid medicine with alcohol, or with other drugs that cause drowsiness or slow your breathing. Stop taking this medicine and call your doctor right away if you have skin redness or a rash that spreads and causes blistering and peeling. What is acetaminophen and hydrocodone? Acetaminophen and hydrocodone is a combination medicine used to relieve moderate to severe pain. Acetaminophen and hydrocodone contains an opioid medicine, and may be habit-forming. Acetaminophen and hydrocodone may also be used for purposes not listed in this medication guide. What should I discuss with my healthcare provider before taking acetaminophen and hydrocodone? You should not use this medicine if you are allergic to acetaminophen or hydrocodone, or if you have: severe asthma or breathing problems; or a blockage in your stomach or intestines. Tell your doctor if you have ever had: breathing problems, sleep apnea (breathing stops during sleep); liver disease; a drug or alcohol addiction; kidney disease; a head injury or seizures; urination problems; or problems with your thyroid, pancreas, or gallbladder. If you use opioid medicine while you are , your baby could become dependent on the drug. This can cause life-threatening withdrawal symptoms in the baby after it is born. Babies born dependent on opioids may need medical treatment for several weeks. Ask a doctor before using opioid medicine if you are . Tell your doctor if you notice severe drowsiness or slow breathing in the nursing baby. How should I take acetaminophen and hydrocodone? Follow all directions on your prescription label. Never take this medicine in larger amounts, or for longer than prescribed. An overdose can damage your liver or cause . Tell your doctor if you feel an increased urge to use more of this medicine. Never share this medicine with another person, especially someone with a history of drug abuse or addiction. MISUSE CAN CAUSE ADDICTION, OVERDOSE, OR . Keep the medicine in a place where others cannot get to it. Selling or giving away this medicine is against the law. Measure liquid medicine carefully. Use the dosing syringe provided, or use a medicine dose-measuring device (not a kitchen spoon). If you need surgery or medical tests, tell the doctor ahead of time that you are using this medicine. You should not stop using this medicine suddenly. Follow your doctor's instructions about tapering your dose. Store at room temperature away from moisture and heat. Keep track of your medicine. You should be aware if anyone is using it improperly or without a prescription. Do not keep leftover opioid medication. Just one dose can cause in someone using this medicine accidentally or improperly. Ask your pharmacist where to locate a drug take-back disposal program.If there is no take-back program, flush the unused medicine down the toilet. What happens if I miss a dose? Since this medicine is used for pain, you are not likely to miss a dose. Skip any missed dose if itis almost time for your next dose. Do not use two doses at one time. What happens if I overdose? Seek emergency medical attention or call the Poison Help line at . An overdose of this medicine can be fatal, especially in a child or other person using the medicine without a prescription. Overdose symptoms may include nausea, vomiting, sweating, severe drowsiness, pinpoint pupils, slow breathing, or no breathing. Your doctor may recommend you get naloxone (a medicine to reverse an opioid overdose) and keep it with you at all times. A person caring for you can give the naloxone if you stop breathing or don't wake up. Your caregiver must still get emergency medical help and may need to perform CPR (cardiopulmonary resuscitation) on you while waiting for help to arrive. Anyone can buy naloxone from a pharmacy or local health department. Make sure any person caring foryou knows where you keep naloxone and how to use it. What should I avoid while taking acetaminophen and hydrocodone? Avoid driving or operating machinery until you know how this medicine will affect you. Dizziness ordrowsiness can cause falls, accidents, or severe injuries. Do not drink alcohol. Dangerous side effects or could occur. Ask a doctor or pharmacist before using any other medicine that may contain acetaminophen (sometimes abbreviated as APAP). Taking certain medications together can lead to a fatal overdose. What are the possible side effects of acetaminophen and hydrocodone? Get emergency medical help if you have signs of an allergic reaction: hives; difficulty breathing; swelling of your face, lips, tongue, or throat. Opioid medicine can slow or stop your breathing, and may occur. A person caring for you should give naloxone and/or seek emergency medical attention if you have slow breathing with long pauses,blue colored lips, or if you are hard to wake up. In rare cases, acetaminophen may cause a severe skin reaction that can be fatal. This could occur even if you have taken acetaminophen in the past and had no reaction. Stop taking this medicine and call your doctor right away if you have skin redness or a rash that spreads and causes blistering andpeeling. Call your doctor at once if you have: noisy breathing, sighing, shallow breathing, breathing that stops; a light-headed feeling, like you might pass out; liver problems--nausea, upper stomach pain, tiredness, loss of appetite, dark urine, gaby-colored stools, jaundice (yellowing of the skin or eyes); low cortisol levels-- nausea, vomiting, loss of appetite, dizziness, worsening tiredness or weakness; o high levels of serotonin in the body--agitation, hallucinations, fever, sweating, shivering, fast heart rate, muscle stiffness, twitching, loss of coordination, nausea, vomiting, diarrhea. Serious breathing problems may be more likely in older adults and in those who are debilitated or have wasting syndrome or chronic breathing disorders. Common side effects include: dizziness, drowsiness, feeling tired; nausea, vomiting, stomach pain; constipation; or headache. This is not a complete list of side effects and others may occur. Call your doctor for medical advice about side effects. You may report side effects to FDA at 9-036-BDI-1729. What other drugs will affect acetaminophen and hydrocodone? You may have breathing problems or withdrawal symptoms if you start or stop taking certain other medicines. Tell your doctor if you also use an antibiotic, antifungal medication, heart or blood pressure medication, seizure medication, or medicine to treat HIV or hepatitis C. Opioid medication can interact with many other drugs and cause dangerous side effects or . Be sure your doctor knows if you also use: cold or allergy medicines, bronchodilator asthma/COPD medication, or a diuretic ('water pill'); medicines for motion sickness, irritable bowel syndrome, or overactive bladder; other opioids--opioid pain medicine or prescription cough medicine; a sedative like Valium--diazepam, alprazolam, lorazepam, Xanax, Klonopin, Versed, and others; drugs that make you sleepy or slow your breathing--a sleeping pill, muscle relaxer, medicine to treat mood disorders or mental illness; drugs that affect serotonin levels in your body--a stimulant, or medicine for depression, Parkinson's disease, migraine headaches, serious infections, or nausea and vomiting. This list is not complete. Other drugs may affect acetaminophen and hydrocodone, including prescription and xamg-mms-zbwyald medicines, vitamins, and herbal products. Not all possible interactions are listed here. Where can I get more information? Your doctor or pharmacist can provide more information about acetaminophen and hydrocodone. Remember, keep this and all other medicines out of the reach of children, never share your medicines with others, and use this medication only for the indication prescribed. Every effort has been made to ensure that the information provided by [employer] is accurate, up-to-date, and complete, but no guarantee is made to that effect. Drug information contained herein may be time sensitive. [employer] information has been compiled for use by healthcare practitioners and consumers in the [place] and therefore [employer] does not warrant that uses outside of the [place] are appropriate, unless specifically indicated otherwise. [facility] drug information does not endorse drugs, diagnose patients or recommend therapy. [facility] drug information isan informational resource designed to assist licensed healthcare practitioners in caring for their p atients and/or to serve consumers viewing this service as a supplement to, and not a substitute for, the expertise, skill, knowledge and judgment of healthcare practitioners. The absence of a warningfor a given drug or drug combination in no way should be construed to indicate that the drug or drug combination is safe, effective or appropriate for any given patient. [facility] does not assume any responsibility for any aspect of healthcare administered with the aid of information [facility] provides. The information contained herein is not intended to cover all possible uses, directions, precautions, warnings, drug interactions, allergic reactions, or adverse effects. If you have questions about the drugs you are taking, check with your doctor, nurse or pharmacist. Copyright 8758-2253 [facility]. Version: 19.. Revision Date: 07/14/2023. Education Materials How To Use an Incentive Spirometer An incentive spirometer is a tool that measures how well you are filling your lungs with each breath. Learning to take long, deep breaths using this tool can help you keep your lungs clear and active. This may help to reverse or lessen your chance of developing breathing (pulmonary) problems, especially infection. You may be asked to use a spirometer: After a surgery. If you have a lung problem or a history of smoking. After a long period of time when you have been unable to move or be active. If the spirometer includes an indicator to show the highest number that you have reached, your health care provider or respiratory therapist will help you set a goal. Keep a list (log) of your progress as told by your health care provider. What are the risks? Breathing too quickly may cause dizziness or cause you to pass out. Take your time so you do not get dizzy or light-headed. If you are in pain, you may need to take pain medicine before doing incentive spirometry. It is harder to take a deep breath if you are having pain. How to use your incentive spirometer 1. Sit up on the edge of your bed or on a chair. 2. Hold the incentive spirometer so that it is in an upright position. 3. Before you use the spirometer, breathe out normally. 4. Place the mouthpiece in your mouth. Make sure your lips are closed tightly around it. 5. Breathe in slowly and as deeply as you can through your mouth, causing the piston or the ball to rise toward the top of the chamber. 6. Hold your breath for 3 5 seconds, or for as long as possible. If the spirometer includes a middle school baseball coach indicator, use this to guide you in breathing. Slow down your breathing if the indicator goes above the marked areas. 7. Remove the mouthpiece from your mouth and breathe out normally. The piston or ball will return to the bottom of the chamber. 8. Rest for a few seconds, then repeat the steps 10 or more times. Take your time and take a few normal breaths between deep breaths so that you do not get dizzy or light-headed. Do this every 1 2 hours when you are awake. 9. If the spirometer includes a goal marker to show the highest number you have reached (best effort),use this as a goal to work toward during each repetition. 10. After each set of 10 deep breaths, cough a few times. This will help to make sure that your lungs are clear. If you have an incision on your chest or abdomen from surgery, place a pillow or a rolled-up towel firmly against the incision when you cough. This can help to reduce pain from coughing. General tips When you become able to get out of bed, walk around often and continue to cough to help clear your lungs. Keep using the incentive spirometer until your health care provider says it is okay to stop using it. If you have been in the hospital, you may be told to keep using the spirometer at home. Contact a health care provider if: You are having difficulty using the spirometer. You have trouble using the spirometer as often as instructed. Your pain medicine is not giving enough relief for you to use the spirometer as told. You have a fever. You develop shortness of breath. Get help right away if: You develop a cough with bloody mucus from the lungs (bloody sputum). You have fluid or blood coming from an incision site after you cough. Summary An incentive spirometer is a tool that can help you learn to take long, deep breaths to keep your lungs clear and active. You may be asked to use a spirometer after a surgery, if you have a lung problem or a history of smoking, or if you have been inactive for a long period of time. Use your incentive spirometer as instructed every 1 2 hours while you are awake. If you have an incision on your chest or abdomen, place a pillow or a rolled-up towel firmly against your incision when you cough. This will help to reduce pain. This information is not intended to replace advice given to you by your health care provider. Make sure you discuss any questions you have with your health care provider. Document Released: 03/22/2008 Document Revised: 12/03/2018 Document Reviewed: 09/23/2018 [facility] Patient Education 2020 [employer]. General Anesthesia, Adult, Care After This sheet gives you information about how to care for yourself after your procedure. Your health care provider may also give you more specific instructions. If you have problems or questions, contact your health care provider. What can I expect after the procedure? After the procedure, the following side effects are common: Pain or discomfort at the IV site. Nausea. Vomiting. Sore throat. Trouble concentrating. Feeling cold or chills. Weak or tired. Sleepiness and fatigue. Soreness and body aches. These side effects can affect parts of the body that were not involved in surgery. Follow these instructions at home: For at least 24 hours after the procedure: Have a responsible adult stay with you. It is important to have someone help care for you until youare awake and alert. Rest as needed. Do not: ? Participate in activities in which you could fall or become injured. ? Drive. ? Use heavy machinery. ? Drink alcohol. ? Take sleeping pills or medicines that cause drowsiness. ? Make important decisions or sign legal documents. ? Take care of children on your own. Eating and drinking Follow any instructions from your health care provider about eating or drinking restrictions. When you feel hungry, start by eating small amounts of foods that are soft and easy to digest (bland), such as toast. Gradually return to your regular diet. Drink enough fluid to keep your urine pale yellow. If you vomit, rehydrate by drinking water, juice, or clear broth. General instructions If you have sleep apnea, surgery and certain medicines can increase your risk for breathing problems. Follow instructions from your health care provider about wearing your sleep device: ? Anytime you are sleeping, including during daytime naps. ? While taking prescription pain medicines, sleeping medicines, or medicines that make you drowsy. Return to your normal activities as told by your health care provider. Ask your health care provider what activities are safe for you. Take jvsg-mzj-axxznie and prescription medicines only as told by your health care provider. If you smoke, do not smoke without supervision. Keep all follow-up visits as told by your health care provider. This is important. Contact a health care provider if: You have nausea or vomiting that does not get better with medicine. You cannot eat or drink without vomiting. You have pain that does not get better with medicine. You are unable to pass urine. You develop a skin rash. You have a fever. You have redness around your IV site that gets worse. Get help right away if: You have difficulty breathing. You have chest pain. You have blood in your urine or stool, or you vomit blood. Summary After the procedure, it is common to have a sore throat or nausea. It is also common to feel tired. Have a responsible adult stay with you for the first 24 hours after general anesthesia. It is important to have someone help care for you until you are awake and alert. When you feel hungry, start by eating small amounts of foods that are soft and easy to digest (bland), such as toast. Gradually return to your regular diet. Drink enough fluid to keep your urine pale yellow. Return to your normal activities as told by your health care provider. Ask your health care provider what activities are safe for you. This information is not intended to replace advice given to you by your health care provider. Make sure you discuss any questions you have with your health care provider. Document Released: 02/16/2002 Document Revised: 11/13/2018 Document Reviewed: 06/26/2018 [facility] Patient Education 2020 [facility] How to Use Cold Therapy Cold therapy, or cryotherapy, is a treatment that uses cold temperatures to treat an injury or medical condition. It includes using cold packs or ice packs to reduce pain and swelling. Only use cold therapy if your doctor says it is okay. What are the risks? Generally, cold therapy is a safe treatment. However, it is not safe for: People who are not able to say they are in pain. These include small children and people who have memory problems. People who have certain conditions, such as: ? A problem in the vessels that slows blood flow to the fingers and toes (Raynaud's syndrome). ? Feeling very cold easily (cold hypersensitivity). ? Lack of feeling in the area being iced. Cold therapy may not be safe for people who have other conditions. Do not use it without talking toyour doctor if you have: A heart condition. High blood pressure. Open or healing wounds. An infection. Pain and swelling in your joints (rheumatoid arthritis). Poor blood flow in the body. Diabetes. Certain skin conditions. How can I make a cold pack? When using a cold pack at home to reduce pain and swelling, you can use: A silica gel cold pack that has been left in the freezer. You can buy this online or in stores. A sealable plastic bag that has been filled with crushed ice. A washcloth or paper towels soaked in cold (or ice) water. A plastic bag of frozen vegetables. Throw them away when you are finished using them as a cold pack. Supplies needed: A cold pack. A towel. This can be dry or damp, based on what you like. How to use cold therapy 1. Have your cold pack ready. 2. Place a towel between the cold pack and your skin. You may also wrap the cold pack in a towel. 3. Put the cold pack on the affected area. Keep it on for no more than 20 minutes at a time. 4. Check your skin after 5 minutes to make sure that there is no damage to the area. Check for: White spots on your skin. Your skin may look blotchy or mottled. Skin that looks blue or pale. Skin that feels waxy or hard. 5. Repeat these steps as many times each day as told by your doctor. Always use a towel to avoid direct contact with your skin. Contact a doctor if: You start to have white spots on your skin. This may give your skin a blotchy or mottled look. Your skin turns blue or pale. Your skin becomes waxy or hard. Your swelling gets worse. Summary Cold therapy, or cryotherapy, is used to treat an injury or other conditions. It includes using cold packs or ice packs to reduce pain and swelling. Cold therapy is not safe for people who are not able to say they are in pain. When using cold packs or ice packs, always place a towel between the cold source and your skin. Check your skin after 5 minutes of icing it. This is to make sure that there is no skin damage. Contact your doctor if you notice changes in your skin or your swelling gets worse. This information is not intended to replace advice given to you by your health care provider. Make sure you discuss any questions you have with your health care provider. Document Released: 04/28/2009 Document Revised: 08/09/2019 Document Reviewed: 08/09/2019 [facility] Patient Education 2020 [employer] How to Use Compression Stockings Compression stockings are elastic socks that squeeze the legs. They help increase blood flow (circulation) to the legs, decrease swelling in the legs, and reduce the chance of developing blood clots in the lower legs. Compression stockings are often used by people who: Are recovering from surgery. Have poor circulation in their legs. Tend to get blood clots in their legs. Have bulging (varicose) veins. Sit or stay in bed for long periods of time. Follow instructions from your health care provider about how and when to wear your compression stockings. How to wear compression stockings Before you put on your compression stockings: Make sure that they are the correct size and degree of compression. If you do not know your size orrequired grade of compression, ask your health care provider and follow the players club representative's instructions that come with the stockings. Make sure that they are clean, dry, and in good condition. Check them for rips and tears. Do not put them on if they are ripped or torn. Put your stockings on first thing in the morning, before you get out of bed. Keep them on for as long as your health care provider advises. When you are wearing your stockings: Keep them as smooth as possible. Do not allow them to bunch up. It is especially important to prevent the stockings from bunching up around your toes or behind your knees. Do not roll the stockings downward and leave them rolled down. This can decrease blood flow to yourleg. Change them right away if they become wet or dirty. When you take off your stockings, inspect your legs and feet. Check for: Open sores. Red spots. Swelling. General tips Do not stop wearing compression stockings without talking to your health care provider first. Wash your stockings every day with mild detergent in cold or warm water. Do not use bleach. Air-dryyour stockings or dry them in a clothes dryer on low heat. It may be helpful to have two pairs so that you have a pair to wear while the other is being washed. Replace your stockings every 3 6 months. If skin moisturizing is part of your treatment plan, apply lotion or cream at night so that your skin will be dry when you put on the stockings in the morning. It is harder to put the stockings on when you have lotion on your legs or feet. Wear nonskid shoes or slip-resistant socks when walking while wearing compression stockings. Contact a health care provider and remove your stockings if you have: A feeling of pins and needles in your feet or legs. Open sores, red spots, or other skin changes on your feet or legs. Swelling or pain that gets worse. Get help right away if you have: Numbness or tingling in your lower legs that does not get better right after you take the stockingsoff. Toes or feet that are unusually cold or turn a bluish color. A warm or red area on your leg. New swelling or soreness in your leg. Shortness of breath. Chest pain. A fast or irregular heartbeat. Light-headedness. Dizziness. Summary Compression stockings are elastic socks that squeeze the legs. They help increase blood flow (circulation) to the legs, decrease swelling in the legs, and reduce the chance of developing blood clots in the lower legs. Follow instructions from your health care provider about how and when to wear your compression stockings. Do not stop wearing your compression stockings without talking to your health care provider first. This information is not intended to replace advice given to you by your health care provider. Make sure you discuss any questions you have with your health care provider. Document Released: 09/07/2010 Document Revised: 11/12/2018 Document Reviewed: 11/12/2018 [facility] Patient Education 2020 [employer] Nausea and Vomiting, Adult Nausea is feeling sick to your stomach or feeling that you are about to throw up (vomit). Vomiting is when food in your stomach is thrown up and out of the mouth. Throwing up can make you feel weak. It can also make you lose too much water in your body (get dehydrated). If you lose too much water in your body, you may: Feel tired. Feel thirsty. Have a dry mouth. Have cracked lips. Go pee (urinate) less often. Older adults and people with other diseases or a weak body defense system (immune system) are at higher risk for losing too much water in the body. If you feel sick to your stomach and you throw up, it is important to follow instructions from your doctor about how to take care of yourself. Follow these instructions at home: Watch your symptoms for any changes. Tell your doctor about them. Follow these instructions to carefor yourself at home. Eating and drinking Take an ORS (oral rehydration solution). This is a drink that is sold at pharmacies and stores. Drink clear fluids in small amounts as you are able, such as: ? Water. ? Ice chips. ? Fruit juice that has water added (diluted fruit juice). ? Low-calorie sports drinks. Eat bland, kavv-ac-iypeyk foods in small amounts as you are able, such as: ? Bananas. ? Applesauce. ? Rice. ? Low-fat (lean) meats. ? [place]. ? Crackers. Avoid drinking fluids that have a lot of sugar or caffeine in them. This includes energy drinks, sports drinks, and soda. Avoid alcohol. Avoid spicy or fatty foods. General instructions Take gurl-oag-nbociho and prescription medicines only as told by your doctor. Drink enough fluid to keep your pee (urine) pale yellow. Wash your hands often with soap and water. If you cannot use soap and water, use hand hand laminator. Make sure that all people in your home wash their hands well and often. Rest at home while you get better. Watch your condition for any changes. Take slow and deep breaths when you feel sick to your stomach. Keep all follow-up visits as told by your doctor. This is important. Contact a doctor if: Your symptoms get worse. You have new symptoms. You have a fever. You cannot drink fluids without throwing up. You feel sick to your stomach for more than 2 days. You feel light-headed or dizzy. You have a headache. You have muscle cramps. You have a rash. You have pain while peeing. Get help right away if: You have pain in your chest, neck, arm, or jaw. You feel very weak or you pass out (faint). You throw up again and again. You have throw up that is bright red or looks like black coffee grounds. You have bloody or black poop (stools) or poop that looks like tar. You have a very bad headache, a stiff neck, or both. You have very bad pain, cramping, or bloating in your belly (abdomen). You have trouble breathing. You are breathing very quickly. Your heart is beating very quickly. Your skin feels cold and clammy. You feel confused. You have signs of losing too much water in your body, such as: ? Dark pee, very little pee, or no pee. ? Cracked lips. ? Dry mouth. ? Sunken eyes. ? Sleepiness. ? Weakness. These symptoms may be an emergency. Do not wait to see if the symptoms will go away. Get medical help right away. Call your local emergency services (911 in the [place] Do not drive yourself to the hospital. Summary Nausea is feeling sick to your stomach or feeling that you are about to throw up (vomit). Vomiting is when food in your stomach is thrown up and out of the mouth. Follow instructions from your doctor about eating and drinking to keep from losing too much water in your body. Take zukf-mrz-lmjfhcm and prescription medicines only as told by your doctor. Contact your doctor if your symptoms get worse or you have new symptoms. Keep all follow-up visits as told by your doctor. This is important. This information is not intended to replace advice given to you by your health care provider. Make sure you discuss any questions you have with your health care provider. Document Released: 04/28/2009 Document Revised: 03/03/2020 Document Reviewed: 04/20/2019 [facility] Patient Education 2020 [employer]. Laparoscopic Cholecystectomy, Care After This sheet gives you information about how to care for yourself after your procedure. Your doctor may also give you more specific instructions. If you have problems or questions, contact your doctor. Follow these instructions at home: Care for cuts from surgery (incisions) Follow instructions from your doctor about how to take care of your cuts from surgery. Make sure you: ? Wash your hands with soap and water before you change your bandage (dressing). If you cannot use soap and water, use hand hand laminator. ? Change your bandage as told by your doctor. ? Leave stitches (sutures), skin glue, or skin tape (adhesive) strips in place. They may need to stayin place for 2 weeks or longer. If tape strips get loose and curl up, you may trim the loose edges.Do not remove tape strips completely unless your doctor says it is okay. Do not take baths, swim, or use a hot tub until your doctor says it is okay. Ask your doctor if youcan take showers. You may only be allowed to take sponge baths for bathing. Check your surgical cut area every day for signs of infection. Check for: ? More redness, swelling, or pain. ? More fluid or blood. ? Warmth. ? Pus or a bad smell. Activity Do not drive or use heavy machinery while taking prescription pain medicine. Do not lift anything that is heavier than 10 lb (4.5 kg) until your doctor says it is okay. Do not play contact sports until your doctor says it is okay. Do not drive for 24 hours if you were given a medicine to help you relax (sedative). Rest as needed. Do not return to work or school until your doctor says it is okay. General instructions Take fatk-tbk-mrboicc and prescription medicines only as told by your doctor. To prevent or treat constipation while you are taking prescription pain medicine, your doctor may recommend that you: ? Drink enough fluid to keep your pee (urine) clear or pale yellow. ? Take xejg-bsw-vgldrcd or prescription medicines. ? Eat foods that are high in fiber, such as fresh fruits and vegetables, whole grains, and beans. ? Limit foods that are high in fat and processed sugars, such as fried and sweet foods. Contact a doctor if: You develop a rash. You have more redness, swelling, or pain around your surgical cuts. You have more fluid or blood coming from your surgical cuts. Your surgical cuts feel warm to the touch. You have pus or a bad smell coming from your surgical cuts. You have a fever. One or more of your surgical cuts breaks open. Get help right away if: You have trouble breathing. You have chest pain. You have pain that is getting worse in your shoulders. You faint or feel dizzy when you stand. You have very bad pain in your belly (abdomen). You are sick to your stomach (nauseous) for more than one day. You have throwing up (vomiting) that lasts for more than one day. You have leg pain. This information is not intended to replace advice given to you by your health care provider. Make sure you discuss any questions you have with your health care provider. Document Released: 08/19/2009 Document Revised: 10/23/2018 Document Reviewed: 04/28/2017 [employer] Patient Education 2020 [employer] [employer] Additional Information VACCINATE! IT SAVES LIVES! Members of the community who have not yet received the COVID-19 vaccine and would like to receive it can visit one of [facility] vaccine clinics. There are many vaccine clinic locations within the [facility]. For locations and available times, please visit https://gettheshot.coronavirus.[place].gov/. It is important to note that some COVID mobile vaccine clinics are held outdoors and may be canceled in rainy or stormy conditions. To learn more about pediatric vaccinations (ages 5-11), we invite you to visit the [facility] webpage. [email or web address] learn more about the COVID-19 vaccine, we invite you to visit the CDC website for a list of frequently asked questions.https://www.cdc.gov/coronavirus/2019-ncov/vaccines/faq.html [facility] Patient Portal Access Instructions: Stay connected with your healthcare team and access your personal medical information anytime with the [facility] Patient Portal. Please follow the directions below to create your [facility] account: 1.Access the email account you provided upon registration to the hospital/physician office.2.Look for an invitation email from [facility].3.Open the email and access the invitation link: AcceptInvitation to [facility].4.Fill in the required ervin to create your account. To access your account, visit [email or web address]. Click the blue button labeled Access Patient Portal and then log in with the username and password that you created in the steps above. You will be able to view your test results, lab results, a summary of your visits, upcoming appointments and more. There is also a convenient messaging option where you can send secure messages to your p rovider. In addition, you will have the ability to download any documents or summaries to your computer and/or send the information securely to a physician. Remember that your healthcare information is confidential, so carefully consider who you will allowto register on the [facility] Patient Portal for access to your information. You can also access the [facility] Patient Portal on the [facility] aaron. Simply click on Patient Portal and then log into your account. If you would like to receive a full copy of your medical records, please contact the [facility] Medical Records Department by calling [phone], Friday through Friday between 8 a.m. and 4:30 p.m. HOW TO SAFELY DISPOSE OF PRESCRIPTION MEDICATIONS Please use one of the following methods to safely dispose of your unused medications. 1.Use a drug disposal kit: the drug disposal pouch allows you to safely discard your old and unuseddrugs. Ask your nurse to give you one when you are discharged.2.Visit a local take-back location: Many local pharmacies and police departments have programs that collect old and unwanted prescriptiondrugs. Call your local pharmacy or go to http://eSolar/9B4Af8m to find one close to you.3.Make use of household items: Use cat litter or old coffee grounds to dispose medications if other options arenot available. Mix your drugs with these household products, seal them in an airtight container andthrow it into the garbage. Call [facility]: [phone] to be sure your drugs can be disposed of in this way. Some medicines may require a different approach.4.Never flush your medications down the toilet. IF YOU HAVE BEEN PRESCRIBED AN OPIOID FOR PAIN If you have been prescribed an opioid (such as hydrocodone, oxycodone or morphine), it is critical to understand the possible side effects and risks of opioid pain medications. Even when taken as directed, opioids can have several side effects including: Tolerance, meaning you might need to take more of a medication for the same pain relief. Nausea, vomiting and/or constipation. Sleepiness, dizziness, dry mouth, confusion, depression or itching. Physical dependence, meaning you have withdrawal symptoms when a medication is stopped, can develop within a few days. KNOW YOUR RESPONSIBILITIES It is important to know exactly how much and how often to take the opioid pain medications you are prescribed. Never take opioids in higher amounts or more often than prescribed. Do not combine opioids with alcohol or other drugs that cause drowsiness, such as benzodiazepines, also known as benzos, including diazepam and alprazolam, muscle relaxants or sleep aids. Never sell or share prescription opioids. This is illegal. Store opioids in a secure place and out of reach of others (including children, family, friends and visitors). The last page of this document has been signed and retained as a CHART COPY. Signatures Patient Education Materials How to Use an Incentive Spirometer General Anesthesia, Adult, Care After How to Use Cold Therapy, Tehl-yp-Zaui How to Use Compression Stockings Nausea and Vomiting, Adult, Jtrd-tl-Jbgw Laparoscopic Cholecystectomy, Care After, Roff-qz-Sukf Medication Leaflets Exparel, Sigel 325- 5 mg oral tablet My discharge plan and instructions have been reviewed and explained to me and I,ALMA HARRELL understand my current condition and have read and understand these discharge instructions. I have received a written copy of the plan/instructions. If I have questions, I am aware that I should contact my doctor. Patient/Informatics Spec Signature: Date/Time: Relationship to Patient: Witness Name/Signature: Date/Time: [facility] Progress note No data available for this section [facility] Summary note* CAMERON Painting: PERFORM Event Display: Patient Summary Documents Authored Date: [id number] [facility] Summary Purpose Family History No Family History Records FoundNo Family History Records FoundNo Family History Records FoundNo Family History Records FoundNo Family History Records Found No data available for this section No data available for this section No Family History Records Found No data available for this section No data available for this section No data available for this section No data available for this section No data available for this section No data available for this section No data available for this section No data available for this section No Family History Records FoundNo Family History Records Found No data available for this section No data available for this section No Family History Records FoundNo Family History Records FoundNo Family History Records Found Advance Directives No Advanced Directives Records Found Advance Directive Response Recorded Date/ Time Living Will No June 06, 2022 6:26pm Power of Mortising Machine Operator No June 06 2 6:26pm Advance Directive Response Recorded Date/ Time Living Will No June 17, 2022 1:50pm Power of Mortising Machine Operator No June 17 2 1:50pm Advance Directive Response Recorded Date/ Time Living Will No August 30 2 9:35pm Power of Mortising Machine Operator No August 30, 022 9:35pm Advance Directive Response Recorded Date/ Time Living Will No August 30 2 8:35pm Power of Mortising Machine Operator No August 30 8:35pm Advance Directive Response Recorded Date/ Time Living Will No December 19 11:36pm Power of Mortising Machine Operator No December 19, 2022 11:36pm Chief Complaint and Reason for Visit Chief Complaint VOMITING Chief Complaint VOMITING NOB LMP 04/13/2022 Reason for Visit Anxiety and depressi on History of labor Supervision of high risk , antepartum Thyromegaly Chief Complaint VOMITING NOB LMP 04/13/2022 e order 13 WK OB CERVICAL LENGTH Reason for Visit Anxiety and depressi on History of labor Supervision of high risk , antepartum Thyromegaly Anxiety and depression History of labor Supervision of high risk , antepartum Thyromegaly Chief Complaint VOMITING NOB LMP 04/13/2022 e order 13 WK OB CERVICAL LENGTH 17 WK OB CERVICAL LENGTH UTI sx Reason for Visit Anxiety and depressi on History of labor Supervision of high risk , antepartum Thyromegaly Anxiety and depression History of labor Supervision of high risk , antepartum Thyromegaly Anxiety and depression History of labor Supervision of high risk , antepartum Chief Complaint VOMITING NOB LMP 04/13/2022 e order 13 WK OB CERVICAL LENGTH 17 WK OB CERVICAL LENGTH UTI sx RIGHT FLANK PAIN Reason for Visit Anxiety and depressi on History of labor Supervision of high risk , antepartum Thyromegaly Anxiety and depression History of labor Supervision of high risk , antepartum Thyromegaly Anxiety and depression History of labor Supervision of high risk , antepartum Right flank pain Supervision of high risk , antepartum UTI symptoms Chief Complaint VOMITING NOB LMP 04/13/2022 e order 13 WK OB CERVICAL LENGTH 17 WK OB CERVICAL LENGTH UTI sx RIGHT FLANK PAIN PALPITATIONS Reason for Visit Anxiety and depressi on History of labor Supervision of high risk , antepartum Thyromegaly Anxiety and depression History of labor Supervision of high risk , antepartum Thyromegaly Anxiety and depression History of labor Supervision of high risk , antepartum Right flank pain Supervision of high risk , antepartum UTI symptoms Chief Complaint CERVICAL LENGTH 17 WK OB CERVICAL LENGTH UTI sx RIGHT FLANK PAIN PALPITATIONS 21 WK OB 25 WK OB 28wk ob / glucose 30 WK OB Reason for Visit Anxiety and depressi on History of labor Supervision of high risk , antepartum Right flank pain Supervision of high risk , antepartum UTI symptoms Anxiety and depression History of labor Supervision of high risk , antepartum Thyromegaly Anxiety and depression History of labor Right flank pain Supervision of high risk , antepartum Thyromegaly UTI symptoms Anxiety and depression COVID-19 affecting childbirth History of labor Supervision of high risk , antepartum Anxiety and depression COVID-19 affecting childbirth History of labor Right flank pain Supervision of high risk , antepartum Thyromegaly UTI symptoms Chief Complaint 17 WK OB CERVICAL LENGTH UTI sx RIGHT FLANK PAIN PALPITATIONS 21 WK OB 25 WK OB 28wk ob / glucose 30 WK OB GROWTH 32WK OB R/O LABOR R/O LABOR R/O LABOR Reason for Visit Anxiety and depressi on History of labor Supervision of high risk , antepartum Supervision of high risk , antepartum UTI symptoms Right flank pain Anxiety and depression History of labor Supervision of high risk , antepartum Thyromegaly Anxiety and depression History of labor Supervision of high risk , antepartum Thyromegaly UTI symptoms Right flank pain Anxiety and depression COVID-19 affecting childbirth History of labor Supervision of high risk , antepartum Anxiety and depression COVID-19 affecting childbirth History of labor Supervision of high risk , antepartum Thyromegaly UTI symptoms Right flank pain Abnormal glucose affecting Anxiety and depression COVID-19 affecting childbirth History of labor Supervision of high risk , antepartum Thyromegaly UTI symptoms Abnormal glucose affecting Anxiety and depression COVID-19 affecting childbirth History of labor Supervision of high risk , antepartum Threatened labor, antepartum Thyromegaly UTI symptoms Chief Complaint 17 WK OB CERVICAL LENGTH UTI sx RIGHT FLANK PAIN PALPITATIONS 21 WK OB 25 WK OB 28wk ob / glucose 30 WK OB GROWTH 32WK OB R/O LABOR R/O LABOR R/O LABOR CELESTONE INJECTION Reason for Visit Anxiety and depressi on History of labor Supervision of high risk , antepartum Supervision of high risk , antepartum UTI symptoms Right flank pain Anxiety and depression History of labor Supervision of high risk , antepartum Thyromegaly Anxiety and depression History of labor Supervision of high risk , antepartum Thyromegaly UTI symptoms Right flank pain Anxiety and depression COVID-19 affecting childbirth History of labor Supervision of high risk , antepartum Anxiety and depression COVID-19 affecting childbirth History of labor Supervision of high risk , antepartum Thyromegaly UTI symptoms Right flank pain Abnormal glucose affecting Anxiety and depression COVID-19 affecting childbirth History of labor Supervision of high risk , antepartum Thyromegaly UTI symptoms Abnormal glucose affecting Anxiety and depression COVID-19 affecting childbirth History of labor Supervision of high risk , antepartum Threatened labor, antepartum Thyromegaly UTI symptoms Chief Complaint CERVICAL LENGTH UTI sx RIGHT FLANK PAIN PALPITATIONS 21 WK OB 25 WK OB 28wk ob / glucose 30 WK OB GROWTH 32WK OB R/O LABOR R/O LABOR R/O LABOR CELESTONE INJECTION Reason for Visit Supervision of high risk , antepartum UTI symptoms Right flank pain Anxiety and depression History of labor Supervision of high risk , antepartum Thyromegaly Anxiety and depression History of labor Supervision of high risk , antepartum Thyromegaly UTI symptoms Right flank pain Anxiety and depression COVID-19 affecting childbirth History of labor Supervision of high risk , antepartum Anxiety and depression COVID-19 affecting childbirth History of labor Supervision of high risk , antepartum Thyromegaly UTI symptoms Right flank pain Abnormal glucose affecting Anxiety and depression COVID-19 affecting childbirth History of labor Supervision of high risk , antepartum Thyromegaly UTI symptoms Abnormal glucose affecting Anxiety and depression COVID-19 affecting childbirth History of labor Supervision of high risk , antepartum Threatened labor, antepartum Thyromegaly UTI symptoms Chief Complaint PALPITATIONS 21 WK OB 25 WK OB 28wk ob / glucose 30 WK OB GROWTH 32WK OB R/O LABOR R/O LABOR R/O LABOR CELESTONE INJECTION 34 WK OB 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 Reason for Visit Anxiety and depressi on History of labor Supervision of high risk , antepartum Thyromegaly Anxiety and depression History of labor Right flank pain Supervision of high risk , antepartum Thyromegaly UTI symptoms Anxiety and depression COVID-19 affecting childbirth History of labor Supervision of high risk , antepartum Anxiety and depression COVID-19 affecting childbirth History of labor Right flank pain Supervision of high risk , antepartum Thyromegaly UTI symptoms Abnormal glucose affecting Anxiety and depression COVID-19 affecting childbirth History of labor Supervision of high risk , antepartum Thyromegaly UTI symptoms Abnormal glucose affecting Anxiety and depression COVID-19 affecting childbirth History of labor Supervision of high risk , antepartum Threatened labor, antepartum Thyromegaly UTI symptoms Abnormal glucose affecting Anxiety and depression COVID-19 affecting childbirth History of labor Supervision of high risk , antepartum Threatened labor, antepartum Thyromegaly UTI symptoms Vaginal delivery Abnormal glucose affecting Anxiety and depression COVID-19 affecting childbirth History of labor labor Supervision of high risk , antepartum Thyromegaly UTI symptoms Health Concerns Infection Onset Date Last Indicated Resolved Time COVID-19 Rule-Out 10/22/2022 10/22/2022 Additional Source Comments INFORMATION SOURCE (unrecogn ized section and content) DATE [facility] DATE CREATED AUTHOR AUTHOR'S ORGANIZ ATION 05/20/2018 [facility] DATE CREATED AUTHOR AUTHOR'S ORGANIZ ATION 11/07/2018 [facility] ([place]) DATE CREATED AUTHOR AUTHOR'S ORGANIZ ATION 04/25/2019 [facility] DATE CREATED AUTHOR AUTHOR'S ORGANIZ ATION 08/11/2021 [facility] DATE CREATED AUTHOR AUTHOR'S ORGANIZ ATION 10/17/2023 [facility] DATE CREATED AUTHOR AUTHOR'S ORGANIZ ATION 06/16/2024 [facility] ([place]) DATE CREATED AUTHOR AUTHOR'S ORGANIZ ATION 09/04/2024 [facility] DATE CREATED AUTHOR AUTHOR'S ORGANIZ ATION 03/31/2025 [facility] DATE CREATED AUTHOR AUTHOR'S ORGANIZ ATION 04/10/2025 [facility] DATE CREATED AUTHOR AUTHOR'S ORGANIZ ATION 05/15/2025 [facility] Source Comments (unrecognize d section and content) In the event this informatio n is protected by the Federal Confidentiality of Alcohol and Drug Abuse Patient Records regulations: The Federal rules restrict any use of the information to criminally investigate or prosecute any alcohol or drug abuse patient.[facility] the event this information is protected by the Federal Confidentiality of Alcohol and Drug Abuse Patient Records regulations: The Federal rules restrict any use of the information to criminally investigate or prosecute any alcohol or drug abuse patient.[facility] the event this information is protected by the Federal Confidentiality of Alcohol and Drug Abuse Patient Records regulations: The Federal rules restrict any use of the information to criminally investigate or prosecute any alcohol or drug abuse patient.[facility] the event this information is protected by the Federal Confidentiality of Alcohol and Drug Abuse Patient Records regulations: The Federal rules restrict any use of the information to criminally investigate or prosecute any alcohol or drug abuse patient.[facility] Center[facility] the event this information is protected by the Federal Confidentiality of Alcohol and Drug Abuse Patient Records regulations: The Federal rules restrict any use of the information to criminally investigate or prosecute any alcohol or drug abuse patient.[facility] Reason for Visit (unrecogniz ed section and content) Reason Comments Cough Cough, SOB and runny nose x 4 days Reason Comments Diarrhea vomiting, fever x 4 weeks, upper quadrant abdominal pain off and on Reason Comments Follow Up Reason Comments Sore Throat Headache, x 3 days Reason Comments Sore Throat GALVEZ, bodyaches x4 day s, intermittent low fever Care Teams (unrecognized sec tion and content) 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 Yovanny Navarro MD Family Provider Active Dr. Yovanny Navarro MD Primary Care Provider Active Team Status: Inactive Member Role Status Dates Dr. Yovanny Navarro MD Primary Care Provider, Referring Provider Active Cherelle Cid CNM Attending Provider Active Team Status: Inactive Member Role Status Dates Dr. Yovanny Navarro MD Primary Care Provider, Referring Provider Active Rita Chavarria FILM WAXER, FILM WAXER-C Attending Provider Active Team Status: Inactive Member Role Status Dates Dr. Yovanny Navarro MD Primary Care Provider, Referring Provider Active Dr. Rosalba Edwards MD Attending Provider Active Team Status: Inactive Member Role Status Dates Dr. Yovanny Navarro MD Primary Care Provider, Referring Provider Active Dr. Zakia De Santiago DO Attending Provider Activ e Team Status: Active Member Role Status Dates Dr. Yovanny Navarro MD Primary Care Provider Active Dr. Zakia De Santiago DO Attending Provider, Referring Provider, Other Provider Active Team Status: Inactive Member Role Status Dates Dr. Yovanny Navarro MD Primary Care Provider Active Dr. Rosalba Edwards MD Attending Provider, Referr ing Provider Active Team Status: Inactive Member Role Status Dates Dr. Yovanny Navarro MD Primary Care Provider Active Rita Chavarria FILM WAXER, FILM WAXER-C Attending Provider Active Team Status: Inactive Member Role Status Dates Dr. Yovanny Navarro MD Primary Care Provider Active Rita Chavarria FILM WAXER, FILM WAXER-C Attending Provider, Referring Provider Active Team Status: Inactive Member Role Status Dates Dr. Yovanny Navarro MD Primary Care Provider Active Dr. Mario Baez MD Attending Provider, Emergency Provider Active Team Status: Inactive Member Role Status Dates Dr. Yovanny Navarro MD Primary Care Provider Active Dr. Zakia De Santiago DO Attending Provider, Refe rring Provider Active Team Status: Active Member Role Status Dates Dr. Yovanny Navarro MD Primary Care Provider Active Dr. Rosalba Edwards MD Admit Provid er, Attending Provider, Other Provider Active Team Status: Inactive Member Role Status Dates Dr. Yovanny Navarro MD Primary Care Provider Active Dr. Rosalba Edwards MD Admit Provider, Attending Provider Active Asparagus Cutter Relationship Specialty Start Date End Date Yovanny Navarro MD [address] [facility] [place] [address] PCP - General Family Medicine 10/22/22 Dai Painting APRN.BATTERY CHARGER CONVEYOR LINE Referring 09/05/23 Asparagus Cutter Relationship Specialty Start Date End Date Yovanny Navarro MD [address] [place] [address] PCP - General Family Medicine 10/22/22 Dai Painting APRN.BATTERY CHARGER CON[employer]OR LINE Referring 09/05/23 Asparagus Cutter Relationship Specialty Start Date End Date Dai Painting APRN.SIM PCP - General 02/22/25 Kat Delong CNP [address] [place] [place] [id number] Referring Family Medicine 02/11/25 Asparagus Cutter Relationship Specialty Start Date End Date Dai Painting APRN.SIM PCP - General 02/22/25 Kat Delong CNP [address] [place] [address] [place] [address] Referring Family Medicine 02/11/25 FOR RECORDS PERTAINING TO PATIENTS WHO ARE OR HAVE BEEN ENROLLED IN A CHEMICAL DEPENDENCY/SUBSTANCEABUSE PROGRAM, SOME INFORMATION MAY BE OMITTED. This clinical summary was aggregated from multiple sources. Caution should be exercised in using it in the provision of clinical care. This summary normalizes information from multiple sources, and as a consequence, information in this document may materially change the coding, format and clinical context of patient data. In addition, data may be omitted in some cases. CLINICAL DECISIONS SHOULD BE BASED ON THE PRIMARY CLINICAL RECORDS. [facility]. provides no warranty or guarantee of the accuracy or completeness of information in this document.
[2025-05-20 20:35] VITALS: BP 116/77; PULSE 69; RESP 16; TEMP 36.9; O2SAT 100
== END 2025-05-20 20:36 | disposition home or self-care (01) ==
PROVIDERS: Emergency Provider Emergency Medicine; PCP Registered Nurse; Visit Provider Emergency Medicine
DX: R10.13 Epigastric pain (principal); R11.2 Nausea with vomiting, unspecified
CPT/HCPCS: 80053; 83690; 84703; 85025; 96361; 96374; 96376; 99282; A4216; J2405

== ENCOUNTER 2025-08-26 16:50 | Emergency (ER) | payer MEDICAID, SELFPAY ==
[2025-08-26 16:51] VITALS: BP 128/89; PULSE 121; RESP 18; TEMP 36.5; O2SAT 97; BMI 30.9
--- NOTE | 2025-08-26 17:06 | EKG12_ITS ---
Test Reason : DIZZINESS Blood Pressure : */* mmHG Vent. Rate : 98 BPM Atrial Rate : 98 BPM P-R Int : 148 ms QRS Dur : 84 ms QT Int : 330 ms P-R-T Axes : 62 12 55 degrees QTcB Int : 421 ms Normal sinus rhythm Normal ECG Confirmed by MANUELA ROCA, TAL ([id number]), acquisitions editor KHALIDA MCCLURE ([id number]) on 08/29/2025 6:25:51 AM Referred By: Confirmed By: TAL ROY MD
--- NOTE | 2025-08-26 17:07 | EX.ED.DYSGE1 ---
HPI History of Present Illness Chief Complaint: Dizziness Detail of Chief Complaint: Recent URI symptoms. Near syncope. Informant: patient Onset/Context/Timing Onset: Days Context: Gradual Onset Timing: Continuous Current Severity: Mild Maximum Severity: Mild Narrative Narrative: 25-year-old female states that she has felt well last several days URI type symptoms nonproductive cough. Today felt that she might pass out but did not pass out. She was initially went to the urgent care transferred to the emergency department. States she has had a fever as high as 1-2.8 last night. Nonproductive cough. Denies any nausea, vomiting or diarrhea. No chest pain. Prior similar symptoms: No Recent Illness/Hospitalization: No PFSH PFSH Medical History History of anomaly in prior , currently OCD (obsessive compulsive disorder) PTSD (post-traumatic stress disorder) Major depression Vaginal delivery Family history of hearing loss at age younger than 7 years History of pre-term labor depression Anxiety Allergy/AdvReac Type Severity Reaction Status Date / Time No Known Allergies Allergy Verified 08/26/25 16:50 Family History Grandfather Spina bifida unconfirmed Surgical History H/O hernia repair History of cholecystectomy History of tonsillectomy Social History adopted: No household members: spouse and children housing: house number of children: 4 current occupational status: unemployed 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 current occupational exposures/hazards: No pets and animals: Yes (Avoid litterbox) pets and animals: cat(s) and dog(s) history of recent travel: Yes ([place]) out of state: Yes out of country: No sexually active: Yes Smoking Status: Never smoker alcohol intake: never substance use type: does not use well-balanced diet: daily or most days caffeine: No (occasional) eating out: rarely or never during the past year weight has: decreased > 10 lbs what type of physical activity do you participate in: walking frequency: 3-4 times per week duration: 45-60 minutes/day charlie/jainism: Muslim seatbelt use: always do you feel safe at home: Yes additional social history: Dagoberto- Works for [employer] 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 Constitutional Constitutional ED: Reports fever(s) Eyes Eyes: Denies blurry vision ENT ENT ED: Denies ear pain, rhinorrhea or sore throat Cardiovascular Cardiovascular: Denies chest pain, orthopnea, palpitations or paroxysmal nocturnal dyspnea Respiratory/Chest Respiratory/Chest: Reports cough; Denies dyspnea, dyspnea on exertion, orthopnea, paroxysmal nocturnal dyspnea or sputum Gastrointestinal Gastrointestinal: Denies abdominal pain, constipation, diarrhea, melena, nausea or vomiting Genitourinary Genitourinary ED: Denies dysuria or hematuria Musculoskeletal Musculoskeletal: Denies arthralgias Integumentary Denies abscess Neurologic Neurologic: Denies headache(s) Psychiatric Psychiatric: Denies anxiety Endocrine Endocrinology: Denies cold intolerance Hematologic/Lymphatic Hematologic/Lymphatic: Reports none Allergic/Immunologic Allergic/Immunologic ED: Denies mouth swelling, tongue swelling or urticaria EXAM Physical Exam Narrative Exam Narrative: Well-appearing 25-year-old female. Vital signs are stable she is afebrile she does not look septic toxic only tachycardic. No acute distress. Her pulse ox is 97% on room air no hypoxia. H EENT exam pupils round react light. Moist Roberto members. Posterior pharynx normal. TMs normal. Neck nontender no lymphadenopathy no meningismus. Back nontender. Lungs clear to auscultation bilaterally. Heart tachycardic 115 no murmur. Chest wall and ribs nontender. Abdomen soft nontender. Moving all 4 extremities. 5/5 store operations specialist strength. Equal symmetrical radial pulses. Calves nontender without edema. No cords. Dorsi plantarflexion intact. Neurologically patient is awake alert. Answering questions following commands. No focal motor deficits. NIH 0. Const Vital Signs: 08/26/25 16:51 08/26/25 18:50 Temperature 97.7 F L Temperature Source Temporal Pulse Rate 121 H 101 H Respiratory Rate 18 18 Blood Pressure 128/89 H 117/78 Blood Pressure Mean 102 91 Pulse Ox 97 100 Oxygen Delivery Method Room Air Room Air Positive well nourished and well developed; Negative for cachectic, contractures or unkempt General Appearance ED: well developed and NAD; Negative for unkempt, cachectic, contractures, cyanotic, diaphoretic or pallor Nutritional Appearance: Negative for cachectic HEENT Reports moist mucous membranes Eyes PERRL and EOMs intact bilaterally Neck no lymphadenopathy, supple and no JVD Chest Wall inspection of chest normal and palpation of chest normal Resp normal respiratory effort and clear to auscultation bilaterally Cardio regular rhythm, S1 normal heart sound, S2 normal heart sound and no murmurs; Negative for regular rate Rate: tachycardic GI normal to inspection, nondistended, normoactive bowel sounds, non-tender, non-distended and no masses Auscultation: normoactive bowel sounds Palpation: soft; Negative for tender, guarding or rebound tenderness present Back/Spine no CVA tenderness General Back: Negative for CVA tenderness Cervical Spine: Negative for cervical spine tenderness Thoracic Spine / Upper Back: Negative for thoracic spinal tenderness or paraspinal muscle tenderness Lumbar Spine / Lower Back: Negative for lumbar spinal tenderness Extremity normal to inspection General Extremety ED: Negative for edema or tenderness General Extremity: Negative for edema Neuro oriented x3 and CN's II-XII intact bilaterally Sensorium / Orientation: alert; Negative for orientation impaired Motor Exam: strength 5/5 throughout Psych mental status grossly normal Appearance: Negative for unkempt Skin no rashes or lesions noted, no wounds and skin turgor normal General Skin Exam: Negative for jaundice or pallor Lesions: No lesion noted Rashes: No rashes noted Trauma: Negative for abrasion Wounds: Negative for wounds noted MDM MDM MDM Narrative Medical decision making narrative: 25-year-old female fever nonproductive cough rule out pneumonia versus other etiologies such as viral bronchitis or viral syndrome. Chest x-ray and labs will be obtained. She is having no urinary symptoms I do not think we need to check a UA. Repeat exam patient is doing well at 7:36 PM. We went over her test results. Her repeat exam is unchanged and normal. She will be discharged to home. Treat as a viral syndrome. Fluids and rest. Tylenol Motrin. Follow-up with not improving. Return if worse. History & Record Review Discussion w/independent historian: Patient Additional record(s) reviewed:: Prior inpatient record, Prior outpatient record, Prior ED visit and Prior labs Lab Data Attestation: I reviewed the patient's lab results. Lab results narrative: CBC shows white count of 12. H&H 14 and 41. Platelets 323. Electrolytes show gap 12. BUN and creatinine is six 0.8. Glucose 89. Chest x-ray normal. EKG normal. Labs: Laboratory Results - last 24 hr 08/26/25 17:35 WBC 12.0 H RBC 4.88 Hgb 14.5 Hct 41.5 MCV 85.0 MCH 29.7 MCHC 34.9 RDW Std Deviation 36.1 RDW Coeff of Semaj 11.8 Plt Count 323 MPV 9.8 Immature Gran % (Auto) 0.300 Neut % (Auto) 69.1 Lymph % (Auto) 17.9 L Barren % (Auto) 9.8 Eos % (Auto) 2.2 Baso % (Auto) 0.7 Absolute Neuts (auto) 8.3 H Absolute Lymphs (auto) 2.16 Nucleated RBC % 0 Sodium 138 Potassium 3.6 Chloride 103 Carbon Dioxide 22.4 Anion Gap 12 BUN 6 Creatinine 0.83 Estim Creat Clear Calc 116.97 Est GFR (MDRD) Non-Af 99 BUN/Creatinine Ratio 7.3 L Glucose 89 Calcium 9.3 Radiography Chest X-Ray - ED: Read by ED Physician, Read by Radiologist, Normal, Heart, Lungs, Mediastinum, Bony Structures and No Acute Disease Diagnostic Testing: Clinical Impression(s) from Imaging Studies Chest X-Ray 08/26/25 17:43 IMPRESSION: No acute cardiopulmonary abnormalities. Reading Location: [facility] Chest x-ray, 2 views, AP and lateral, interpreted by by myself and radiology shows no acute abnormality. Normal cardiac silhouette. Normal lung ervin. Rhythm Strip Rhythm Strip: Sinus Rhythm Rate: 98 Ectopy: None EKG Initial EKG: Attestation: I personally reviewed and interpreted this EKG as follows: Interpretation: Sinus Rhythm and No Acute Injury Pattern Comments: Normal sinus rhythm rate 98 no acute signs of FL or ischemia. No dysrhythmia. Discharge Plan Triage Chief Complaint: Dizziness ED Provider: Gurjit Dorado Dx/Rx/DC Orders Clinical Impression: Viral syndrome Instructions: ED Viral Syndrome (Adult) Primary Care Provider: Dai Ordaz NP Referrals: Dai Ordaz NP, CALL CENTER ASSISTANT-C [Primary Care Provider, Family Practice] - 3-5 Days if not improving Activity Restrictions/Additional Instructions: Plenty of fluids and rest. Motrin and/or Tylenol for fever. Follow-up with your primary care provider if not improving or return if worse. All your tests today were normal. Print Language: Vietnamese Disposition Disposition: Home, Self Care
--- NOTE | 2025-08-26 17:43 | RAD_ITS ---
PROCEDURE: CHEST PA AND LATERAL 08/26/2025 REASON FOR EXAM: COUGH TECHNIQUE: Procedure Code: RADCXR Modality: DX Procedure: CHEST PA AND LATERAL COMPARISON: Chest x-ray 01/19/2019 FINDINGS: Heart: The heart size is normal. Mediastinum: The mediastinal contour is unremarkable. Lungs: Bibasilar atelectasis Bones: Unremarkable RAD/Chest PA and Lateral IMPRESSION: No acute cardiopulmonary abnormalities. Reading Location: [id number]
[2025-08-26 17:50] LABS: Hematocrit 41.5 % (37-47); Hemoglobin 14.5 g/dL (12.0-15.0); Immature Granulocytes Count 0.040 X10^3/uL (0.0-0.0); Mean Corp Hgb Conc 34.9 g/dL (32-36); Mean Corpuscular Volume 85.0 fL (81-99); Mean Platelet Vol. 9.8 fl (6.2-12.0); NRBC Flagged by Analyzer 0 % (0-5); Platelet Count 323 K/mm3 (150-450); RBC Distribution Width CV 11.8 % (11.6-14.6); RBC Distribution Width SD 36.1 fl (35.1-43.9); Red Blood Count 4.88 M/mm3 (4.2-5.4); White Blood Count 12.0 K/mm3 (4.4-11.0)
[2025-08-26 18:10] LABS: Anion Gap 12 (5-15); BUN 6 mg/dL (4-19); BUN/Creat Ratio 7.3 RATIO (10-20); Calcium,Total 9.3 mg/dL (7.6-11.0); Carbon Dioxide 22.4 mmol/L (21.0-32.0); Chloride 103 mmol/L (98-108); Estimated Creatinine Clearance 116.97 ml/min (50-250); Glucose 89 mg/dL (70-99); Potassium 3.6 mmol/L (3.3-5.1)
[2025-08-26 18:50] VITALS: BP 117/78; PULSE 101; RESP 18; O2SAT 100
[2025-08-26 19:43] VITALS: BP 113/93; PULSE 97; RESP 18; TEMP 36.6; O2SAT 100
== END 2025-08-26 19:45 | disposition home or self-care (01) ==
PROVIDERS: Emergency Provider Emergency Medicine; PCP Registered Nurse; Visit Provider Emergency Medicine
DX: B34.9 Viral infection, unspecified (principal)
CPT/HCPCS: 71046; 80048; 85025; 87631; 93005; 99282; A4216